=== PATIENT | male | born 1935 | race Caucasian/White ===

== ENCOUNTER → 2016-08-22 | Outpatient (CLI) | payer OTHER ==
[2016-06-26 11:55] VITALS: BP 150/84
[~2016-08-22] MED LIST: NS 100 ML IV 100 ML IV ONE
[2016-08-22 09:39] LABS: CREATININE 1.05 mg/dL (0.70-1.30)
--- NOTE | 2016-08-25 15:16 | CT ---
History: COPD and atelectasis Study: Multi account planner CT chest without IV contrast Comparison: May 13, 2016 Findings: The lungs are hyperinflated with increased AP diameter of the thorax. There is no pleural effusion. The right lung is grossly clear. There is minimal patchy ground-glass opacity in the lingu la and peripherally in the left lower lobe. There is an 8 millimeter nodular density suggested perip herally in the lingula. However this is part of an apparent scar. There are thick linear densities i n the left lung base peripherally and laterally. There are pacemaker wire leads in place. There is n o pericardial effusion or obvious mediastinal adenopathy. The partially visualized upper abdomen is unremarkable. There are surgical clips around the gastroesophageal junction. Impression: 1. Minimal patchy ground-glass opacity and linear densities, residual from previously demonstrated l eft lower lobe pneumonia. This could represent scarring or residual subsegmental atelectasis. 2. Hyperinflation suggesting COPD Reported By:
== END ==
LOC: RAD 09:00
PROVIDERS: ATTEND Nurse Practitioner Family
DX: J98.11 Atelectasis (principal); J44.1 Chronic obstructive pulmonary disease with (acute) exacerbation; J43.8 Other emphysema
CPT/HCPCS: 36415; 71250; 82565; 84520; A4222

== ENCOUNTER 2016-10-02 12:47 | Emergency (ER) | payer OTHER ==
[2016-10-02 12:52] VITALS: BP 134/67; BMI 27.7
[2016-10-02] MEDS ORDERED: NEOSPORIN OINT ONE (13:32)
--- NOTE | 2016-10-02 13:34 | DR.GENAD ---
HPI - PCP Primary Care Physician: nely - Complaint/Symptoms Chief Complaint Doctors Comments: Patient states that he took his nighttime medication and when he awakened this moning he had abrasions on right elbow and he was on the floor. He denies any other pain. Chief Complaint:: patient stated he took his sleeping meds and the next thing he knew he was under the tv and has a skin tear on his upper right arm. - Source History Provided: Patient - Mode of Arrival Mode of Arrival: Ambulatory - Timing Onset of Chief Complaint: 09/29/16 PMH - PMH Past Medical History: Yes Past Medical History: Arthritis, Asthma, CHF, COPD, Diabetes, GERD Past Surgical History: Yes Surgical History: Ortho Surgery, Tonsillectomy - Family History History of Family Medical Conditions: Yes Family Medical History: Diabetes Mellitus, Heart Failure, Hypertension - Social History Does patient currently use any type of tobacco product: No Have you used tobacco products in the last 12 months: No Type of Tobacco Use: None Does any household member use tobacco: No Do you use any recreational Drugs:: No Lives With: Alone Lives Where: Home - infectious screening In the last 2 months have you had wt loss of >10#?: NO Have you had fever, night sweats or hemotysis?: No Have you traveled outside the country in the last 6 months?: No Isolation: Standard ROS - Review of Systems Eyes: No Symptoms Reported ENTM: No Symptoms Reported Respiratoy: No Symptoms Reported Cardiovascular: No Symptoms Reported Gastrointestinal/Abdominal: No Symptoms Reported Genitourinary: No Symptoms Reported Neurological: No Symptoms Reported Musculoskeletal: Forearm (abrasion) Integumentary: Lesions (abrasion right elbow forearm) Hematologic/Lymphatic: No Symptoms Reported Endocrine: No Symptoms Reported Psychiatric: No Symptoms Reported All Other Systems: Reviewed and Negative PE - Vital Signs Vitals: Temperature 99.1 F Pulse Rate 83 Respiratory Rate 18 Blood Pressure [Left Arm] 112/54 Blood Pressure [Right Arm] 103/46 Blood Pressure 134/67 O2 Sat by Pulse Oximetry 100 - General Limitations: No Limitations General Appearance: Alert, In No Apparent Distress - Head Head Exam: Normal Inspection, Atraumatic - Eyes Eye exam: Normal Appearance, PERRL, EOMI - Neck Neck Exam: Normal Inspection - Chest Chest Inspection: Normal Inspection - Respiratory Respiratory Exam: Normal Lung Sounds Bilat Respiratory Exam: Bilateral Clear to Auscultation - Cardiovascular Cardiovascular Exam: Regular Rate - Abdominal Exam Abdominal Exam: Normal Inspection Abdominal Tenderness: negative: RUQ, RLQ, LUQ, LLQ, Epigastrium, Suprapubic, Diffuse, Mild, Moderate, Severe, Other - Extremities Extremities Exam: Normal Inspection, Full ROM - Back Back Exam: Normal Inspection - Psychiatric Psychiatric Exam: Normal Affect - Skin Skin Exam: Warm, Dry, Rash (abrasion right elbow and forearm) Course - Treatment Treatment: Clearned and dressed - Reevaluation 1st: Improved - Diagnosis Discharge Problem: Abrasion of skin - Discharge Plan Condition: Stable - Follow ups/Referrals Follow ups/Referrals: YAMIL NOYOLA [Primary Care Provider] - 3 days - Instructions
== END 2016-10-02 13:55 | disposition home or self-care (01) ==
LOC: ER 13:01
DX: S50.311A Abrasion of right elbow, initial encounter (principal); Y33.XXXA Other specified events, undetermined intent, initial encounter; Y92.9 Unspecified place or not applicable
CPT/HCPCS: 99282

== ENCOUNTER → 2017-01-13 | Outpatient (CLI) | payer OTHER ==
--- NOTE | 2017-01-13 16:03 | CT ---
HISTORY: Dizziness. Study: CT brain without contrast Comparison: CT head dated May 21, 2016. Technique: Multiple axial images of the brain were obtained from the skull base to the vertex without administr ation of IV contrast. Dose reduction techniques including Automated Exposure Control (AEC) and adju stment of mA and kV were utilized. Findings: Age related cortical atrophy and chronic small vessel ischemic changes. Prominent extra-axial spaces are again seen. This may represent changes secondary to cortical volume loss versus chronic subdura l hygromas. No acute intraparenchymal hemorrhage or mass can be identified. No extra-axial fluid co llections are seen. No alteration in the attenuation of the brain parenchyma can be identified to s uggest acute or subacute ischemic change. The ventricular system is symmetric and nondilated. The o sseous structures are intact. Persistent small amount of free fluid seen within the left mastoid air cells. Right mastoid air cells and visualized paranasal sinuses are clear. IMPRESSION: No obvious acute intracranial pathology. If clinically concerned for acute ischemia/infa rction, MRI brain is more sensitive. Reported By:
--- NOTE | 2017-01-13 16:06 | CT ---
HISTORY: Neck pain. Study: CT cervical spine without contrast Comparison: None available. Technique: Multiple axial images of the cervical spine were obtained from the skull base to the thor acic inlet without administration of IV contrast. Sagittal and coronal reformats were performed and reviewed. Dose reduction techniques including Automated Exposure Control (AEC) and adjustment of mA and kV were utilized. Findings: Anatomic alignment without acute fracture or listhesis. Mild/moderate degenerative changes of the ce rvical spine. Otherwise, the vertebral body heights and disc spaces are maintained. No significant n eural foraminal narrowing or spinal canal stenosis. Extensive vascular calcifications. Otherwise, th e prevertebral soft tissues and lung apices appear normal. IMPRESSION: No acute cervical pathology. Reported By:
== END ==
LOC: RAD 14:31
PROVIDERS: ATTEND Nurse Practitioner Family
DX: K22.2 Esophageal obstruction (principal); M54.2 Cervicalgia; M62.81 Muscle weakness (generalized)
CPT/HCPCS: 70450; 72125

== ENCOUNTER → 2017-01-21 | Outpatient (CLI) | payer OTHER ==
[2017-01-27 07:30] LABS: CREATININE UR MG/DAY 1300; CREATININE UR MG/DL 51; HOURS COLLECTED 24; TOTAL URINE VOLUME 2550
[2017-01-27 07:32] LABS: CORTISOL UR FREE 24 HOURS < 2.6; CORTISOL UR FREE UG/L < 1.00
[2017-01-27 07:33] LABS: CORTISOL UR FREE UG/G < 1.96
== END ==
LOC: LAB 16:15
PROVIDERS: ATTEND Nurse Practitioner Family
DX: N40.0 Benign prostatic hyperplasia without lower urinary tract symptoms (principal); E11.9 Type 2 diabetes mellitus without complications; Z79.899 Other long term (current) drug therapy; Z79.891 Long term (current) use of opiate analgesic; R97.20 Elevated prostate specific antigen [PSA]
CPT/HCPCS: 82530

== ENCOUNTER 2017-08-15 22:32 | Inpatient (IN) | payer OTHER ==
[2017-08-15] MEDS ORDERED: XOPENEX 1.25 MG/3 ML NEBULE NEB ONE ×2 (22:40→22:50)
[2017-08-15] MEDS ORDERED: Atrovent NEB TX 0.02% ONE (22:40)
[2017-08-15 23:05] LABS: ABG ALLEN TEST POS; ABG BASE EXCESS 7.6 mmol/L (-2.0-2.0); ABG HCO3 35.3 mmol/L (22-26)
[2017-08-15] MEDS ORDERED: Atrovent NEB TX 0.02% NEB ONE (23:10)
--- NOTE | 2017-08-15 23:11 | DR.SOBA ---
HPI - Time Seen Time seen: 22:50 - Primary Care Physician Primary Care Physician: YAMIL NOYOLA - Complaints Chief Complaint Doctors Comments: Symptoms as noted in nurses note. Onset was without activity. He denies c/p or fever. Chief Complaint:: PT BECAME SOB AT HOME; EXP WHEEZING AND DISORIENTATION WITNESSED BY FAMILY THAT CALLED EMS. UPON ARRIVAL PER EMS 02 SAT = 76% - Reviewed Nurses Notes Reviewed: Yes - Source History Provided: Patient, Family Member, EMS - Mode of Arrival Mode of Arrival: Stretcher - Timing Onset of Chief Complaint: 08/15/17 - Context Onset:: At Rest PMH - PMH Past Medical History: Yes (PT UNABLE TO SPEAK) Past Medical History: Diabetes, PUD Past Surgical History: No (PT UNABLE TO SPEAK) Surgical History: Ortho Surgery, Tonsillectomy - Family History History of Family Medical Conditions: No Family Medical History: Diabetes Mellitus, Heart Failure, Hypertension - Social History Alcohol Use: None Do you use any recreational Drugs:: No Lives With: Alone Lives Where: Home - infectious screening Have you traveled outside the country in the last 6 months?: No Isolation: Standard ROS - Review of Systems Constitutional: No Symptoms Reported Eyes: No Symptoms Reported ENTM: No Symptoms Reported Respiratoy: Non-Productive Cough, Wheezing, Other (Dyspnea) Cardiovascular: No Symptoms Reported Gastrointestinal/Abdominal: No Symptoms Reported Genitourinary: No Symptoms Reported Neurological: No Symptoms Reported Musculoskeletal: No Symptoms Reported Integumentary: No Symptoms Reported Hematologic/Lymphatic: No Symptoms Reported Endocrine: No Symptoms Reported Psychiatric: No Symptoms Reported All Other Systems: Reviewed and Negative PE - Vital Signs Vitals: Temperature 99.8 F Pulse Rate [Right Brachial] 86 Pulse Rate 86 Respiratory Rate 17 Blood Pressure [Left Arm] 112/54 Blood Pressure [Right Arm] 103/46 Blood Pressure 120/59 O2 Sat by Pulse Oximetry 93 - General Limitations: No Limitations General Appearance: Lethargic - Head Head Exam: Normal Inspection - Eyes Eye exam: Normal Appearance - ENT ENT Exam: Normal Exam - Neck Neck Exam: Normal Inspection - Chest Chest Inspection: Normal Inspection, Symmetric Chest Wall Rise - Respiratory Respiratory Exam: Bilateral Wheezing, Bilateral Rhonchi, Bilateral Crackles - Cardiovascular Cardiovascular Exam: Regular Rate, Normal Rhythm, +S1, +S2 - Abdominal Exam Abdominal Exam: Normal Inspection, Normal Bowel Sounds, Soft, Distention ( chronic), Other (there is a midline surgical incision) - Extremities Extremities Exam: Normal Inspection - Back Back Exam: Normal Inspection - Neurologic Neurological Exam: Alert, Oriented X3 - Psychiatric Psychiatric Exam: Normal Affect, Normal Mood - Skin Skin Exam: Warm, Dry, Intact, Normal Color ROR - Labs Reviewed Result Diagrams: 08/15/17 23:05 08/15/17 23:05 Laboratory: WBC 10.9 X10^3/uL (3.6-10.0) H 08/15/17 23:05 RBC 4.02 X10^6/uL (4.7-6.0) L 08/15/17 23:05 Hgb 11.5 g/dL (13.5-18.0) L 08/15/17 23:05 Hct 34.8 % (42.0-54.0) L 08/15/17 23:05 MCV 86.6 fL (80.0-100.0) 08/15/17 23:05 MCH 28.6 pg (27.0-34.0) 08/15/17 23:05 MCHC 33.1 g/dL (33.0-35.0) 08/15/17 23:05 RDW 14.5 % (11.6-16.5) 08/15/17 23:05 Plt Count 121 X10^3/uL (150.0-450.0) L 08/15/17 23:05 MPV 9.5 fL (7.4-11.0) 08/15/17 23:05 Neut % (Auto) 71.8 % (42.0-75.0) 08/15/17 23:05 Lymph % (Auto) 20.5 % (21.0-51.0) L 08/15/17 23:05 Iron % (Auto) 6.1 % (0.0-13.0) 08/15/17 23:05 Eos % (Auto) 1.0 % (0.9-2.9) 08/15/17 23:05 Baso % (Auto) 0.6 % (0.2-1.0) 08/15/17 23:05 Neut # (Auto) 7.8 x10^3/uL (2.2-4.8) H 08/15/17 23:05 Lymph # (Auto) 2.2 X10^3/uL (1.3-2.9) 08/15/17 23:05 Iron # (Auto) 0.7 x10^3/uL (0.3-0.8) 08/15/17 23:05 Eos # (Auto) 0.1 x10^3/uL (0.0-0.2) 08/15/17 23:05 Baso # (Auto) 0.1 X10^3/uL (0.0-0.1) 08/15/17 23:05 Absolute Nucleated RBC 0.0 /100WBC 08/15/17 23:05 Sample Site Rbra 08/16/17 00:41 ABG pH 7.370 (7.35-7.45) 08/16/17 00:41 ABG pCO2 59.0 mmHg (35.0-45.0) H* 08/16/17 00:41 ABG pO2 149.0 mmHg (80.0-100.0) H 08/16/17 00:41 ABG HCO3 34.1 mmol/L (22-26) H* 08/16/17 00:41 ABG O2 Saturation 99.0 % (90-100) 08/16/17 00:41 ABG Base Excess 7.1 mmol/L (-2.0-2.0) H 08/16/17 00:41 Romain Test Na 08/16/17 00:41 A-a Gradient 62.0 mmHg 08/16/17 00:41 FiO2 40.000 08/16/17 00:41 Blood Gas Comments Marianne abg well-mtf 08/16/17 00:41 Sodium 142 mmol/L (136-145) 08/15/17 23:05 Corrected Sodium 143 mmol/L (136-145) 08/15/17 23:05 Potassium 4.3 mmol/L (3.5-5.1) 08/15/17 23:05 Chloride 102 mmol/L (98-107) 08/15/17 23:05 Carbon Dioxide 33.1 mmol/L (21-32) H 08/15/17 23:05 BUN 16 mg/dL (7-18) 08/15/17 23:05 Creatinine 1.39 mg/dL (0.70-1.30) H 08/15/17 23:05 Est GFR (MDRD) Af Amer > 60 (>60) 08/15/17 23:05 Est GFR (MDRD) Non-Af 52 (>60) L 08/15/17 23:05 Glucose 149 mg/dL (65-99) H 08/15/17 23:05 Calcium 8.4 mg/dL (8.5-10.1) L 08/15/17 23:05 Corrected Calcium TNP 08/15/17 23:05 Total Bilirubin 0.60 mg/dL (0.2-1.0) 08/15/17 23:05 AST 23 Units/L (15-37) 08/15/17 23:05 ALT 29 Units/L (12-78) 08/15/17 23:05 Alkaline Phosphatase 57 Units/L (46-116) 08/15/17 23:05 Creatine Kinase 123 Units/L (39-308) 08/15/17 23:05 CK-MB (CK-2) 1.5 ng/mL (0-4.0) 08/15/17 23:05 CK/CKMB % Calc 1.2 % (<4) 08/15/17 23:05 Troponin I < 0.02 ng/mL (0-1.5) 08/15/17 23:05 Total Protein 6.8 g/dL (6.4-8.2) 08/15/17 23:05 Albumin 3.6 g/dL (3.4-5.0) 08/15/17 23:05 Globulin 3.2 g/dL (2.5-4.5) 08/15/17 23:05 Albumin/Globulin Ratio 1.1 Ratio (1.1-2.1) 08/15/17 23:05 - Diagnosis Discharge Problem: Respiratory failure with hypercapnia - Discharge Plan Disposition: ADMITTED INPATIENT Condition: Stable - Follow ups/Referrals Follow ups/Referrals: RIKA CUNNINGHAM [Primary Care Provider] - 3 days - Instructions
[2017-08-15 23:14] LABS: BASOPHILS # (AUTO) 0.1 X10^3/uL (0.0-0.1); BASOPHILS % (AUTO) 0.6 % (0.2-1.0); EOSINOPHILS # (AUTO) 0.1 x10^3/uL (0.0-0.2); HEMATOCRIT 34.8 % (42.0-54.0); HEMOGLOBIN 11.5 g/dL (13.5-18.0); LYMPHOCYTES # (AUTO) 2.2 X10^3/uL (1.3-2.9); LYMPHOCYTES % (AUTO) 20.5 % (21.0-51.0); MEAN CORPUSCULAR HEMOGLOBIN 28.6 pg (27.0-34.0); MEAN CORPUSCULAR HGB CONC 33.1 g/dL (33.0-35.0); MEAN CORPUSCULAR VOLUME 86.6 fL (80.0-100.0); MEAN PLATELET VOLUME 9.5 fL (7.4-11.0); MONOCYTES # (AUTO) 0.7 x10^3/uL (0.3-0.8); MONOCYTES % (AUTO) 6.1 % (0.0-13.0); NEUTROPHILS # (AUTO) 7.8 x10^3/uL (2.2-4.8); NEUTROPHILS % (AUTO) 71.8 % (42.0-75.0); PLATELET COUNT 121 X10^3/uL (150.0-450.0); RED BLOOD COUNT 4.02 X10^6/uL (4.7-6.0); RED CELL DISTRIBUTION WIDTH 14.5 % (11.6-16.5); WHITE BLOOD COUNT 10.9 X10^3/uL (3.6-10.0)
[2017-08-15] MEDS ORDERED: SOLU-Medrol 125 MG VIAL IVP ONE (23:15)
[2017-08-15] MEDS ORDERED: ROCEPHIN 1 GM IV PREMIX 1 GM/50 ML IV.SOLN. IV ONE (23:15)
[2017-08-15] MEDS ORDERED: ZITHROMAX INJ 500 MG VIAL 500 MG in NS 250 ML IV 250 ML IV SCH (23:16)
[2017-08-15] MEDS ORDERED: SOLU-Medrol 125 MG VIAL ONE (23:23)
[2017-08-15 23:24] LABS: ALANINE AMINOTRANSFERASE 29 Units/L (12-78); ALBUMIN 3.6 g/dL (3.4-5.0); ALKALINE PHOSPHATASE 57 Units/L (46-116); ASPARTATE AMINO TRANSFERASE 23 Units/L (15-37); BLOOD UREA NITROGEN 16 mg/dL (7-18); CALCIUM 8.4 mg/dL (8.5-10.1); CARBON DIOXIDE 33.1 mmol/L (21-32); CHLORIDE 102 mmol/L (98-107); COR NA(FOR HYPERGLY) 143 mmol/L (136-145); CREATININE 1.39 mg/dL (0.70-1.30); SODIUM 142 mmol/L (136-145); TOTAL PROTEIN 6.8 g/dL (6.4-8.2); eGFR BLACK RACES > 60 (>60); eGFR NON BLACK RACES 52 (>60)
[2017-08-15 23:46] LABS: CKMB % 1.2 % (<4); CREATINE KINASE 123 Units/L (39-308); CREATINE KINASE MB 1.5 ng/mL (0-4.0); TROPONIN I < 0.02 ng/mL (0-1.5)
[2017-08-16] MEDS ORDERED: NS 250 ML IV 0 ML IV ONE (00:16)
[2017-08-16] MEDS ORDERED: ROCEPHIN VIAL 1 GM ONE (00:16)
[2017-08-16] MEDS ORDERED: ZITHROMAX INJ 500 MG VIAL IV ONE (00:19)
[2017-08-16] MEDS ORDERED: NS 250 ML IV 250 ML IV ONE (00:19)
[2017-08-16 00:58] LABS: ABG BASE EXCESS 7.1 mmol/L (-2.0-2.0)
[2017-08-16 01:00] LABS: ABG HCO3 34.1 mmol/L (22-26)
[2017-08-16] MEDS ORDERED: REFLEX: PROVENTIL NEB & PulmiCORT NEB~ NEB SCH (01:15)
--- NOTE | 2017-08-16 01:15 | RAD ---
AP chest Indication: Shortness breath. Comparison: 05/29/2016 Findings: Trachea is midline. Heart size is unchanged. No change in appearance of right chest wall pa cemaker and left-sided remote pacing leads. No focal airspace opacity, pleural effusion or pneumothor ax. Chronic scarring is noted within the left costophrenic sulcus. No acute osseous abnormality. Impression: No acute cardiopulmonary abnormality. Reported By:
[2017-08-16] MEDS ORDERED: ZITHROMAX INJ 500 MG VIAL 250 MG in NS 250 ML IV 250 ML IV SCH ×2 (02:00→21:00)
[2017-08-16] MEDS ORDERED: PROTONIX INJ 40 MG VIAL ONE (03:10)
[2017-08-16] MEDS: NS 1000 ML 1,000 ML IV SCH ×3 (03:12→17:10)
[2017-08-16] MEDS: LOVENOX INJ 40 MG SYR SC SCH ×2 (03:13→14:34)
[2017-08-16] MEDS: PROTONIX TAB 40 MG PO SCH ×3 (03:19→14:30)
[2017-08-16 03:50] VITALS: BMI 27.4
[2017-08-16] MEDS: PROVENTIL NEB TX 0.083% 2.5MG/ 3ML NEB SCH ×3 (05:09→17:01)
[2017-08-16 05:58] LABS: BASOPHILS % (AUTO) 0.1 % (0.2-1.0); EOSINOPHILS % (AUTO) 0.1 % (0.9-2.9); HEMATOCRIT 32.8 % (42.0-54.0); HEMOGLOBIN 11.1 g/dL (13.5-18.0); LYMPHOCYTES # (AUTO) 0.3 X10^3/uL (1.3-2.9); LYMPHOCYTES % (AUTO) 3.6 % (21.0-51.0); MEAN CORPUSCULAR HGB CONC 33.9 g/dL (33.0-35.0); MEAN CORPUSCULAR VOLUME 85.6 fL (80.0-100.0); MEAN PLATELET VOLUME 9.9 fL (7.4-11.0); MONOCYTES # (AUTO) 0.1 x10^3/uL (0.3-0.8); MONOCYTES % (AUTO) 0.8 % (0.0-13.0); NEUTROPHILS # (AUTO) 7.5 x10^3/uL (2.2-4.8); NEUTROPHILS % (AUTO) 95.4 % (42.0-75.0); PLATELET COUNT 113 X10^3/uL (150.0-450.0); RED BLOOD COUNT 3.83 X10^6/uL (4.7-6.0); RED CELL DISTRIBUTION WIDTH 14.4 % (11.6-16.5); WHITE BLOOD COUNT 7.9 X10^3/uL (3.6-10.0)
[2017-08-16 06:27] LABS: ALANINE AMINOTRANSFERASE 26 Units/L (12-78); ALBUMIN 3.4 g/dL (3.4-5.0); ALKALINE PHOSPHATASE 52 Units/L (46-116); ASPARTATE AMINO TRANSFERASE 23 Units/L (15-37); BLOOD UREA NITROGEN 17 mg/dL (7-18); CALCIUM 8.3 mg/dL (8.5-10.1); CARBON DIOXIDE 30.9 mmol/L (21-32); CHLORIDE 101 mmol/L (98-107); COR NA(FOR HYPERGLY) 143 mmol/L (136-145); CREATININE 1.35 mg/dL (0.70-1.30); SODIUM 141 mmol/L (136-145); TOTAL PROTEIN 6.7 g/dL (6.4-8.2); eGFR BLACK RACES > 60 (>60); eGFR NON BLACK RACES 54 (>60)
[2017-08-16 06:54] LABS: BAND NEUTROPHILS % 1 % (0-10); PLATELET MORPHOLOGY COMMENT NORMAL (NORMAL)
[2017-08-16 06:55] LABS: HYPOCHROMASIA 1+
[2017-08-16] MEDS ORDERED: SOLU-Medrol 40 MG VIAL IVP SCH (08:00)
[2017-08-16] MEDS ORDERED: ROCEPHIN VIAL 1 GM 1 GM in NS 100 ML IV + SPIKE MINIBAG* 100 ML IV SCH (09:00)
[2017-08-16] MEDS ORDERED: PULMICORT NEB TX 0.5 MG NEB SCH ×2 (09:00→21:00)
[2017-08-16] MEDS: SOLU-Medrol 40 MG VIAL IVP SCH ×2 (12:16→16:53)
[2017-08-16] MEDS: ROCEPHIN VIAL 1 GM 1 GM in NS 100 ML IV + SPIKE MINIBAG* 100 ML IV SCH (20:45)
[2017-08-16] MEDS: ZITHROMAX INJ 500 MG VIAL 250 MG in NS 250 ML IV 250 ML IV SCH (21:40)
[2017-08-16] MEDS: PULMICORT NEB TX 0.5 MG NEB SCH (21:53)
[2017-08-17] MEDS ORDERED: PROVENTIL NEB TX 0.083% 2.5MG/ 3ML NEB SCH
[2017-08-17] MEDS: PROVENTIL NEB TX 0.083% 2.5MG/ 3ML NEB SCH ×5 (00:30→17:11)
[2017-08-17] MEDS: NS 1000 ML 1,000 ML IV SCH ×2 (02:00→13:55)
[2017-08-17] MEDS ORDERED: LOVENOX INJ 40 MG SYR SC SCH (03:00)
[2017-08-17] MEDS: SOLU-Medrol 40 MG VIAL IVP SCH ×3 (03:05→20:38)
[2017-08-17] MEDS: LOVENOX INJ 40 MG SYR SC SCH (03:05)
[2017-08-17] MEDS ORDERED: TYLENOL 325 MG TAB PO PRN (03:10)
[2017-08-17] MEDS ORDERED: NORCO 5/325 MG TAB PO ONE (05:35)
[2017-08-17] MEDS ORDERED: REQUIP PO ONE (07:19)
[2017-08-17] MEDS: REQUIP PO SCH ×2 (07:30→20:37)
[2017-08-17] MEDS: ROCEPHIN VIAL 1 GM 1 GM in NS 100 ML IV + SPIKE MINIBAG* 100 ML IV SCH ×2 (08:00→20:37)
[2017-08-17] MEDS: PROTONIX TAB 40 MG PO SCH (08:00)
[2017-08-17] MEDS: LYRICA CAP 150 MG PO SCH ×2 (09:00→20:37)
[2017-08-17] MEDS: CARDURA PO SCH ×2 (09:00→21:36)
[2017-08-17] MEDS: NexIUM PO SCH (09:00)
[2017-08-17] MEDS: BUPROPION HCL 75 MG PO SCH (09:00)
[2017-08-17] MEDS: PULMICORT NEB TX 0.5 MG NEB SCH ×2 (09:21→22:35)
[2017-08-17] MEDS ORDERED: WELLBUTRIN SR 150 MG (BID) ONE (09:22)
[2017-08-17] MEDS ORDERED: PREDNISONE TAB 10 MG PO ONE (09:23)
[2017-08-17] MEDS ORDERED: CARDURA ONE (09:23)
[2017-08-17] MEDS ORDERED: NexIUM ONE (09:23)
[2017-08-17] MEDS ORDERED: XANAX ONE (09:25)
[2017-08-17] MEDS ORDERED: M.S. CONTIN 30 MG EXTENDED RELEASE PO ONE (09:25)
[2017-08-17] MEDS ORDERED: LYRICA CAP 150 MG PO ONE (09:25)
[2017-08-17] MEDS ORDERED: NORCO 10/325 TAB ONE (09:25)
[2017-08-17] MEDS ORDERED: M.S. CONTIN 15 MG (EXTENDED RELEASE) PO PRN (09:30)
[2017-08-17] MEDS ORDERED: GLUCOPHAGE ONE (09:54)
[2017-08-17] MEDS: GLUCOPHAGE PO SCH (09:55)
--- NOTE | 2017-08-17 11:51 | RAD ---
HISTORY: Shortness of breath. Disorientation. Study: AP portable chest Comparison: 08/15/2017 Findings: Minimal central pulmonary vascular congestion is noted. Chronic scarring is noted in the left latera l costophrenic angle. The heart size is borderline enlarged as. A right-sided electronic cardiac de vice is present and its 2 leads appear to be in appropriate position. Abandoned broken electrode mauro ds are present on the left, unchanged. No acute bony abnormalities are identified. IMPRESSION: 1. Borderline cardiomegaly with minimal central pulmonary vascular congestion. 2. Otherwise, no significant change is noted when compared to the prior examination. Reported By:
--- NOTE | 2017-08-17 13:21 | PCM.PROG ---
Progress Note - Progress Note for Day of Date: 08/17/17 - Subjective Subjective: 82 [facility] ER ADMISSION ON 08/16 WITH DECREASED MENTAL STATUS, SOB, CCC. PT ADMITTED FOR PNEUMONIA TREATMENT AND EVALUATION OF HYPOXIA. PT CO CHEST CONGESTION THIS AM AND LOWER LEG PAIN. PT HAS PMH OF SEVERE OA, CHF, CAD, HTN, COPD. WILL RESUME HOME MEDS. REPEAT CXR TODAY, CONTINUE IV ATBX RESP THERAPY - Past Medical Family Social History Past Med/Fam/Surg Hx: No changes since H&P Allergies: Allergies codeine Allergy (Verified 08/15/17 22:55) iodine Allergy (Verified 08/15/17 22:55) - Review of Systems ROS: No change since H&P - Vital Signs and I&O's Vital Signs: Temperature 98.2 F Pulse Rate [Right Brachial] 70 Pulse Rate 68 Respiratory Rate 28 Blood Pressure [Left Arm] 151/65 Blood Pressure [Right Arm] 126/67 Blood Pressure 120/59 O2 Sat by Pulse Oximetry 98 Intake and Output: Intake & Output 08/15/17 08/16/17 08/17/17 08/18/17 11:59 11:59 11:59 11:59 Intake Total 750 2975 Output Total 200 900 Balance 550 2075 - Physical Exam Oriented: Normal Eyes: Normal Ear: Normal Nose: Discharge Throat: Dry Respiratory: Diminished, Wheezes, Rhonchi Cardiovascular: Normal : Normal Auscultation: Bowel Sounds: Normal Palpation: Normal Tenderness: Epigastric Skin: Decreased Turgur Musculoskeletal: Right, Left, Knee, Back:Thoracic, Back:Lumbar, Sensory Deficit , Instability Psychiatric: Anxiety Affect: Anxious Speech Pattern: Clear, Appropriate - Laboratory and Diagnostics Result Diagrams: 08/16/17 04:05 08/16/17 04:05 Labs: 08/17/17 12:19 Sputum - Expectorated Sputum - Final Laboratory WBC 7.9 X10^3/uL (3.6-10.0) 08/16/17 04:05 RBC 3.83 X10^6/uL (4.7-6.0) L 08/16/17 04:05 Hgb 11.1 g/dL (13.5-18.0) L 08/16/17 04:05 Hct 32.8 % (42.0-54.0) L 08/16/17 04:05 MCV 85.6 fL (80.0-100.0) 08/16/17 04:05 MCH 29.0 pg (27.0-34.0) 08/16/17 04:05 MCHC 33.9 g/dL (33.0-35.0) 08/16/17 04:05 RDW 14.4 % (11.6-16.5) 08/16/17 04:05 Plt Count 113 X10^3/uL (150.0-450.0) L 08/16/17 04:05 Plt Count Comment Adequate (ADEQUATE) 08/16/17 04:05 MPV 9.9 fL (7.4-11.0) 08/16/17 04:05 Neut % (Auto) 95.4 % (42.0-75.0) H 08/16/17 04:05 Lymph % (Auto) 3.6 % (21.0-51.0) L 08/16/17 04:05 Wetzel % (Auto) 0.8 % (0.0-13.0) 08/16/17 04:05 Eos % (Auto) 0.1 % (0.9-2.9) L 08/16/17 04:05 Baso % (Auto) 0.1 % (0.2-1.0) L 08/16/17 04:05 Neut # (Auto) 7.5 x10^3/uL (2.2-4.8) H 08/16/17 04:05 Lymph # (Auto) 0.3 X10^3/uL (1.3-2.9) L 08/16/17 04:05 Wetzel # (Auto) 0.1 x10^3/uL (0.3-0.8) L 08/16/17 04:05 Eos # (Auto) 0.0 x10^3/uL (0.0-0.2) 08/16/17 04:05 Baso # (Auto) 0.0 X10^3/uL (0.0-0.1) 08/16/17 04:05 Absolute Nucleated RBC 0.0 /100WBC 08/16/17 04:05 Total Counted 100 08/16/17 04:05 Neutrophils % (Manual) 96 % (39-76) H 08/16/17 04:05 Band Neutrophils % 1 % (0-10) 08/16/17 04:05 Lymphocytes % (Manual) 3 % (13-43) L 08/16/17 04:05 Plt Morphology Comment Normal (NORMAL) 08/16/17 04:05 RBC Morphology Normal (NORMAL) 08/16/17 04:05 Hypochromasia 1+ A 08/16/17 04:05 Sample Site Rbra 08/16/17 00:41 ABG pH 7.370 (7.35-7.45) 08/16/17 00:41 ABG pCO2 59.0 mmHg (35.0-45.0) H* 08/16/17 00:41 ABG pO2 149.0 mmHg (80.0-100.0) H 08/16/17 00:41 ABG HCO3 34.1 mmol/L (22-26) H* 08/16/17 00:41 ABG O2 Saturation 99.0 % (90-100) 08/16/17 00:41 ABG Base Excess 7.1 mmol/L (-2.0-2.0) H 08/16/17 00:41 Romain Test Na 08/16/17 00:41 A-a Gradient 62.0 mmHg 08/16/17 00:41 FiO2 40.000 08/16/17 00:41 Blood Gas Comments Marianne abg well-mtf 08/16/17 00:41 Sodium 141 mmol/L (136-145) 08/16/17 04:05 Corrected Sodium 143 mmol/L (136-145) 08/16/17 04:05 Potassium 3.8 mmol/L (3.5-5.1) 08/16/17 04:05 Chloride 101 mmol/L (98-107) 08/16/17 04:05 Carbon Dioxide 30.9 mmol/L (21-32) 08/16/17 04:05 BUN 17 mg/dL (7-18) 08/16/17 04:05 Creatinine 1.35 mg/dL (0.70-1.30) H 08/16/17 04:05 Est GFR (MDRD) Af Amer > 60 (>60) 08/16/17 04:05 Est GFR (MDRD) Non-Af 54 (>60) L 08/16/17 04:05 Glucose 177 mg/dL (65-99) H 08/16/17 04:05 POC Glucose (mg/dL) 169 mg/dL (65-99) H 08/17/17 11:13 Calcium 8.3 mg/dL (8.5-10.1) L 08/16/17 04:05 Corrected Calcium TNP 08/16/17 04:05 Total Bilirubin 0.40 mg/dL (0.2-1.0) 08/16/17 04:05 AST 23 Units/L (15-37) 08/16/17 04:05 ALT 26 Units/L (12-78) 08/16/17 04:05 Alkaline Phosphatase 52 Units/L (46-116) 08/16/17 04:05 Creatine Kinase 123 Units/L (39-308) 08/15/17 23:05 CK-MB (CK-2) 1.5 ng/mL (0-4.0) 08/15/17 23:05 CK/CKMB % Calc 1.2 % (<4) 08/15/17 23:05 Troponin I < 0.02 ng/mL (0-1.5) 08/15/17 23:05 Total Protein 6.7 g/dL (6.4-8.2) 08/16/17 04:05 Albumin 3.4 g/dL (3.4-5.0) 08/16/17 04:05 Globulin 3.3 g/dL (2.5-4.5) 08/16/17 04:05 Albumin/Globulin Ratio 1.0 Ratio (1.1-2.1) L 08/16/17 04:05 - Plan (1) Pneumonia Status: Acute Plan: CONTINUE RESP THERAPY, SUPPLEMENTAL O2. JET NEBS, IV ATBX. IV SOLU MEDROL, REPEAT AM LABS. CXR TODAY. CHF, MANAGEMENT, I & OS, BP MONITORING (2) Altered mental status Status: Acute Plan: IMPROVED WITH CORRECTION OF HYPOXIA (3) Diabetes Status: Acute (4) Respiratory failure with hypercapnia Status: Acute (5) CHF (congestive heart failure) Status: Chronic (6) Cardiomyopathy Status: Chronic (7) GERD (gastroesophageal reflux disease) Status: Chronic
[2017-08-17] MEDS ORDERED: NORCO 10/325 TAB PO PRN ×2 (13:24→14:02)
[2017-08-17] MEDS ORDERED: XANAX PO PRN (13:24)
[2017-08-17] MEDS: ZITHROMAX INJ 500 MG VIAL 250 MG in NS 250 ML IV 250 ML IV SCH (21:36)
[2017-08-18] MEDS: PROVENTIL NEB TX 0.083% 2.5MG/ 3ML NEB SCH ×4 (00:45→18:10)
[2017-08-18] MEDS: LOVENOX INJ 40 MG SYR SC SCH (02:26)
[2017-08-18] MEDS: SOLU-Medrol 40 MG VIAL IVP SCH ×2 (02:26→09:48)
[2017-08-18] MEDS: NS 1000 ML 1,000 ML IV SCH ×4 (02:28→21:35)
[2017-08-18 06:35] LABS: BASOPHILS % (AUTO) 0.1 % (0.2-1.0); HEMATOCRIT 33.1 % (42.0-54.0); HEMOGLOBIN 10.9 g/dL (13.5-18.0); LYMPHOCYTES # (AUTO) 0.7 X10^3/uL (1.3-2.9); LYMPHOCYTES % (AUTO) 5.8 % (21.0-51.0); MEAN CORPUSCULAR HEMOGLOBIN 28.5 pg (27.0-34.0); MEAN CORPUSCULAR VOLUME 86.3 fL (80.0-100.0); MEAN PLATELET VOLUME 10.1 fL (7.4-11.0); MONOCYTES # (AUTO) 0.2 x10^3/uL (0.3-0.8); MONOCYTES % (AUTO) 1.7 % (0.0-13.0); NEUTROPHILS # (AUTO) 11.1 x10^3/uL (2.2-4.8); NEUTROPHILS % (AUTO) 92.4 % (42.0-75.0); PLATELET COUNT 108 X10^3/uL (150.0-450.0); RED BLOOD COUNT 3.83 X10^6/uL (4.7-6.0); RED CELL DISTRIBUTION WIDTH 14.7 % (11.6-16.5)
[2017-08-18 06:51] LABS: ALANINE AMINOTRANSFERASE 39 Units/L (12-78); ALBUMIN 3.3 g/dL (3.4-5.0); ALKALINE PHOSPHATASE 47 Units/L (46-116); ASPARTATE AMINO TRANSFERASE 38 Units/L (15-37); BLOOD UREA NITROGEN 19 mg/dL (7-18); CALCIUM 8.3 mg/dL (8.5-10.1); CARBON DIOXIDE 28.1 mmol/L (21-32); CHLORIDE 106 mmol/L (98-107); COR CA(FOR HYPOALB) 8.9 mg/dL (8.5-10.1); COR NA(FOR HYPERGLY) 146 mmol/L (136-145); CREATININE 1.14 mg/dL (0.70-1.30); SODIUM 144 mmol/L (136-145); TOTAL PROTEIN 6.6 g/dL (6.4-8.2); eGFR BLACK RACES > 60 (>60); eGFR NON BLACK RACES > 60 (>60)
[2017-08-18 06:58] LABS: B-TYPE NATRIURETIC PEPTIDE 334 pg/mL (0-79)
[2017-08-18 07:04] LABS: PLATELET MORPHOLOGY COMMENT NORMAL (NORMAL)
[2017-08-18] MEDS ORDERED: GLUCOPHAGE ONE ×2 (07:21→20:38)
[2017-08-18] MEDS: GLUCOPHAGE PO SCH ×4 (07:34→21:33)
[2017-08-18] MEDS ORDERED: M.S. CONTIN 15 MG (EXTENDED RELEASE) PO PRN ×2 (07:36→14:47)
[2017-08-18] MEDS ORDERED: LASIX IVP ONE ×2 (08:58→09:28)
[2017-08-18] MEDS ORDERED: DOXAZOSIN MESYLATE 8 MG PO SCH (09:00)
[2017-08-18] MEDS ORDERED: LASIX PO SCH (09:00)
[2017-08-18] MEDS ORDERED: K-DUR TAB 20 MEQ PO SCH (09:00)
[2017-08-18] MEDS: PULMICORT NEB TX 0.5 MG NEB SCH ×2 (09:02→21:20)
[2017-08-18] MEDS: ROCEPHIN VIAL 1 GM 1 GM in NS 100 ML IV + SPIKE MINIBAG* 100 ML IV SCH ×2 (09:18→21:38)
[2017-08-18] MEDS: PROTONIX TAB 40 MG PO SCH (09:18)
[2017-08-18] MEDS: LYRICA CAP 150 MG PO SCH ×2 (09:18→21:34)
[2017-08-18] MEDS: REQUIP PO SCH ×2 (09:32→21:34)
[2017-08-18] MEDS: NexIUM PO SCH (09:33)
[2017-08-18] MEDS: CARDURA PO SCH (09:35)
[2017-08-18] MEDS: BUPROPION HCL 75 MG PO SCH (09:35)
[2017-08-18] MEDS ORDERED: TYLENOL 325 MG TAB PO PRN (14:47)
[2017-08-18] MEDS ORDERED: NORCO 10/325 TAB PO PRN (14:47)
[2017-08-18] MEDS ORDERED: XANAX PO PRN (14:47)
[2017-08-18] MEDS ORDERED: SOLU-Medrol 40 MG VIAL IVP SCH (17:46)
[2017-08-18 18:12] VITALS: BP 126/75
[2017-08-18] MEDS ORDERED: ZITHROMAX INJ 500 MG VIAL 250 MG in NS 250 ML IV 250 ML IV SCH (21:00)
[2017-08-19] MEDS: PROVENTIL NEB TX 0.083% 2.5MG/ 3ML NEB SCH ×3 (00:42→05:05)
[2017-08-19] MEDS ORDERED: LOVENOX INJ 40 MG SYR SC SCH (03:00)
[2017-08-19] MEDS: NS 1000 ML 1,000 ML IV SCH ×3 (05:14→10:07)
[2017-08-19] MEDS ORDERED: GLUCOPHAGE ONE (05:46)
[2017-08-19] MEDS: GLUCOPHAGE PO SCH (06:10)
[2017-08-19 06:15] LABS: BASOPHILS % (AUTO) 0.3 % (0.2-1.0); EOSINOPHILS % (AUTO) 0.1 % (0.9-2.9); HEMATOCRIT 31.8 % (42.0-54.0); HEMOGLOBIN 10.6 g/dL (13.5-18.0); LYMPHOCYTES # (AUTO) 1.8 X10^3/uL (1.3-2.9); LYMPHOCYTES % (AUTO) 16.3 % (21.0-51.0); MEAN CORPUSCULAR HEMOGLOBIN 28.8 pg (27.0-34.0); MEAN CORPUSCULAR HGB CONC 33.3 g/dL (33.0-35.0); MEAN CORPUSCULAR VOLUME 86.4 fL (80.0-100.0); MEAN PLATELET VOLUME 10.1 fL (7.4-11.0); MONOCYTES # (AUTO) 0.8 x10^3/uL (0.3-0.8); MONOCYTES % (AUTO) 7.5 % (0.0-13.0); NEUTROPHILS # (AUTO) 8.4 x10^3/uL (2.2-4.8); NEUTROPHILS % (AUTO) 75.8 % (42.0-75.0); PLATELET COUNT 102 X10^3/uL (150.0-450.0); RED BLOOD COUNT 3.68 X10^6/uL (4.7-6.0); RED CELL DISTRIBUTION WIDTH 14.5 % (11.6-16.5); WHITE BLOOD COUNT 11.1 X10^3/uL (3.6-10.0)
[2017-08-19 06:31] LABS: ALANINE AMINOTRANSFERASE 35 Units/L (12-78); ALBUMIN 3.2 g/dL (3.4-5.0); ALKALINE PHOSPHATASE 41 Units/L (46-116); ASPARTATE AMINO TRANSFERASE 21 Units/L (15-37); BLOOD UREA NITROGEN 18 mg/dL (7-18); CALCIUM 8.1 mg/dL (8.5-10.1); CARBON DIOXIDE 29.8 mmol/L (21-32); CHLORIDE 107 mmol/L (98-107); COR CA(FOR HYPOALB) 8.7 mg/dL (8.5-10.1); CREATININE 1.27 mg/dL (0.70-1.30); SODIUM 146 mmol/L (136-145); eGFR BLACK RACES > 60 (>60); eGFR NON BLACK RACES 57 (>60)
[2017-08-19] MEDS: PULMICORT NEB TX 0.5 MG NEB SCH (09:00)
[2017-08-19] MEDS ORDERED: CARDURA PO SCH (09:00)
[2017-08-19] MEDS ORDERED: LASIX PO SCH (09:00)
[2017-08-19] MEDS ORDERED: PROTONIX TAB 40 MG PO SCH (09:00)
[2017-08-19] MEDS ORDERED: WELLBUTRIN SR 150 MG (BID) PO SCH (09:00)
[2017-08-19] MEDS ORDERED: NexIUM PO SCH (09:00)
[2017-08-19] MEDS ORDERED: K-DUR TAB 20 MEQ PO SCH (09:00)
[2017-08-19] MEDS: ROCEPHIN VIAL 1 GM 1 GM in NS 100 ML IV + SPIKE MINIBAG* 100 ML IV SCH (09:27)
[2017-08-19] MEDS: LYRICA CAP 150 MG PO SCH (09:34)
[2017-08-19] MEDS: REQUIP PO SCH (10:05)
== END 2017-08-19 12:45 | disposition home health service (06) | DRG 189 ==
LOC: ER 22:32 → OBSVTOIN 08-16 01:04 → MED/SURG 08-16 01:04 → UNDOADMOB 08-16 01:04 → ICU 08-16 12:26 → MED/SURG 08-18 18:15
PROVIDERS: ADMIT Obstetrics & Gynecology Obstetrics; ATTEND Internal Medicine
DX: J96.02 Acute respiratory failure with hypercapnia (principal); J44.1 Chronic obstructive pulmonary disease with (acute) exacerbation; J18.8 Other pneumonia, unspecified organism; R06.02 Shortness of breath; R94.31 Abnormal electrocardiogram [ECG] [EKG]; I50.9 Heart failure, unspecified; I10 Essential (primary) hypertension; R41.82 Altered mental status, unspecified; E11.65 Type 2 diabetes mellitus with hyperglycemia; I51.7 Cardiomegaly; K21.9 Gastro-esophageal reflux disease without esophagitis; Z95.0 Presence of cardiac pacemaker
CPT/HCPCS: 36415; 36600; 71045; 80053; 82550; 82553; 82803; 83880; 84484; 85025; 87040; 87070; 87205; 93005; 93010; 93306; 94640; 94660; 94760; 96365; 96367; 96374; 99284; A4216; A4222; A4618; A7030; C9113; S0106; J0456; J0696; J1650; J1940; J2920; J2930; J7506; J7613; J7626; J7644

== ENCOUNTER 2017-08-23 14:31 | Emergency (ER) | payer OTHER ==
[2017-08-23 14:42] VITALS: BP 175/74; BMI 28.2
--- NOTE | 2017-08-23 15:49 | DR.SOBA ---
HPI - Time Seen Time seen: 14:50 - Primary Care Physician Primary Care Physician: AMEYA - HPI Comment HPI Comment: HISTORY BELOW. - Complaints Chief Complaint Doctors Comments: DISCHARGE HOME FROM HOSPITAL WITH HOME OXYGEN. PATIENT WENT TO A AND OXYGEN DID NOT GET DELIVER. WAS SOB AND O2 SAT WAS IN 70S. LAST NIGHT USE A NEIGHBORS OXYGEN. THIS NEIGHBOR GAVE 2 TANKS OF OXYGEN PATIENT CAN USE TILL TOMORROW. HE WILL USE AT HOME. Chief Complaint:: SOB, PT STATES HE WAS EATING SOME GRAPES. OXYGEN LEVEL DROPPED TO 77. % AND COULD NOT GET OXYGEN LEVEL BACK UP. HANDS TURNT WHITE. - Reviewed Nurses Notes Reviewed: Yes - Source History Provided: Patient - Mode of Arrival Mode of Arrival: Wheelchair - Timing Onset of Chief Complaint: 08/23/17 - Context Onset:: At Rest PE Risk Factors:: None History of:: COPD Prehospital Care:: None - Modifying Factors Worsens:: Nothing Improves:: Nothing - Associated Signs and Symptoms Associated Signs and Symptoms: Wheeze, Cough - If Chest Pain Quality: Pleuritic Location: Chest Wall - If Cough Cough: Productive, White PMH - PMH Past Medical History: Yes Past Medical History: Arthritis, COPD, Diabetes, PUD Past Surgical History: Yes Surgical History: Ortho Surgery, Thyroidectomy Past Surgical History Comment: PACEMAKER - Family History History of Family Medical Conditions: Yes Family Medical History: Diabetes Mellitus, Heart Failure, Hypertension - Social History Does any household member use tobacco: No Alcohol Use: None Do you use any recreational Drugs:: No Lives With: Alone Lives Where: Home - infectious screening In the last 2 months have you had wt loss of >10#?: NO Have you had fever, night sweats or hemotysis?: No Have you traveled outside the country in the last 6 months?: No Isolation: Standard ROS - Review of Systems Constitutional: Weakness, Fatigue Eyes: negative: Eye Pain, Discharge ENTM: Nose Congestion. negative: Ear Pain, Nose Discharge, Throat Pain Respiratoy: Productive Cough, Short of Breath, Wheezing. negative: Hemoptysis Cardiovascular: Edema. negative: Chest Pain Gastrointestinal/Abdominal: negative: Abdominal Pain, Diarrhea, Nausea, Vomiting Genitourinary: No Symptoms Reported Neurological: Weakness, Dizziness. negative: Headache Musculoskeletal: Back Pain Integumentary: No Symptoms Reported Hematologic/Lymphatic: No Symptoms Reported Endocrine: No Symptoms Reported All Other Systems: Reviewed and Negative PE - Vital Signs Vitals: Temperature 97.8 F Pulse Rate 65 Respiratory Rate 20 Blood Pressure [Left Arm] 151/65 Blood Pressure [Right Arm] 126/75 Blood Pressure 175/74 O2 Sat by Pulse Oximetry 97 - General Limitations: No Limitations General Appearance: Alert - Head Head Exam: Normal Inspection - Eyes Eye exam: Normal Appearance - ENT ENT Exam: Normal External Ear Exam - Neck Neck Exam: Normal Inspection - Chest Chest Inspection: Symmetric Chest Wall Rise - Respiratory Respiratory Exam: Normal Lung Sounds Bilat Respiratory Exam: Bilateral Clear to Auscultation - Cardiovascular Cardiovascular Exam: Regular Rate, Normal Rhythm - Abdominal Exam Abdominal Exam: Normal Bowel Sounds, Soft. negative: Tenderness - Neurologic Neurological Exam: Alert, Oriented X3 - Psychiatric Psychiatric Exam: Anxious - Skin Skin Exam: Normal Color MDM - Additional Information Obtained Additional Information Obtained From: Family - Differential Diagnosis Differential Diagnosis: COPD, Other (OXYGEN DEPENDENT.) Course - Treatment Treatment: SEE ORDERS. PATIENT TO USE CURRENT O2 TILL HIOS OXYGEN IS DELIVER IN AM. - Education/Counseling Education/Counseling: Patient, Family, Education Educated On: Diagnosis - Diagnosis Discharge Problem: Hypoxia, Oxygen supply absent, Low oxygen saturation - Discharge Plan Disposition: 01 HOME, SELF-CARE Condition: Stable - Follow ups/Referrals Follow ups/Referrals: RIKA CUNNINGHAM [Primary Care Provider] - 3 days - Instructions Instructions: Hypoxemia
== END 2017-08-23 15:52 | disposition home or self-care (01) ==
LOC: ER 14:35
DX: R09.02 Hypoxemia (principal); Z99.81 Dependence on supplemental oxygen
CPT/HCPCS: 99281; 99282

== ENCOUNTER → 2017-09-16 | Outpatient (CLI) | payer OTHER ==
[2017-08-23 14:42] VITALS: BP 175/74
--- NOTE | 2017-09-16 12:44 | CT ---
HISTORY: Lower back pain Study: CT lumbar spine without contrast Comparison: CT 12/09/2010 Technique: Multiple axial images of the lumbar spine without the administration of IV contrast. Sag ittal and coronal reformats were performed and reviewed. Dose reduction techniques including Automat ed Exposure Control (AEC) and adjustment of mA and kV were utilized. Findings: Lumbar alignment is within normal limits. There is advanced degenerative disc space narrowing and spo ndylosis with multilevel vacuum phenomenon and facet arthropathy resulting in rather diffuse moderate to severe foraminal stenosis bilaterally from L1-L2 and L5-S1. Findings are probably worse at L3-L4. There is [id number] spinal canal stenosis at L3-L4 and moderate to severe spinal canal stenosi s at L4-5 due to above-described degenerative changes as well as ligamentum flavum thickening. The cyr rrounding intra-abdominal in paraspinal soft tissues appear unremarkable with some scattered vascular calcifications noted. IMPRESSION: 1. Advanced lumbar degenerative changes as described with multilevel moderate to severe bilateral for aminal stenosis worse at L3-L4 as well as spinal canal stenosis at L3-L4 and L4-5 as described. Consi dante MRI for further evaluation if indicated clinically. 2. No acute osseous abnormality identified. Reported By:
== END ==
LOC: RAD 11:42
PROVIDERS: ATTEND Internal Medicine
DX: M51.37 Other intervertebral disc degeneration, lumbosacral region (principal)
CPT/HCPCS: 72131

== ENCOUNTER 2017-09-29 00:08 | Inpatient (IN) | payer OTHER ==
[2017-09-29 00:23] LABS: ABG BASE EXCESS 6.7 mmol/L (-2.0-2.0); ABG HCO3 31.9 mmol/L (22-26)
--- NOTE | 2017-09-29 01:24 | CT ---
CT head without contrast Indication: Altered mental status. Nonresponsive patient. Comparison: 01/13/[address] Findings: There is atrophy with ex vacuo ventricular and sulcal enlargement. There is no acute intrac ranial hemorrhage, mass or mass effect. No large area of hypoattenuation suggest infarction seen. Rev iew of bone windows shows left mastoid air cell fluid. Paranasal sinuses are otherwise normal. No fra cture seen. Impression: 1. No acute intracranial hemorrhage. 2. Moderate atrophy, similar to the prior. 3. Left mastoid air cell fluid, relatively unchanged from the prior Reported By:
[2017-09-29 01:27] LABS: BASOPHILS % (AUTO) 0.3 % (0.2-1.0); EOSINOPHILS # (AUTO) 0.2 x10^3/uL (0.0-0.2); EOSINOPHILS % (AUTO) 2.3 % (0.9-2.9); HEMATOCRIT 31.9 % (42.0-54.0); HEMOGLOBIN 10.7 g/dL (13.5-18.0); LYMPHOCYTES # (AUTO) 0.5 X10^3/uL (1.3-2.9); MEAN CORPUSCULAR HGB CONC 33.7 g/dL (33.0-35.0); MEAN PLATELET VOLUME 9.5 fL (7.4-11.0); MONOCYTES # (AUTO) 0.5 x10^3/uL (0.3-0.8); MONOCYTES % (AUTO) 6.3 % (0.0-13.0); NEUTROPHILS # (AUTO) 7.5 x10^3/uL (2.2-4.8); NEUTROPHILS % (AUTO) 85.1 % (42.0-75.0); PLATELET COUNT 104 X10^3/uL (150.0-450.0); RED BLOOD COUNT 3.71 X10^6/uL (4.7-6.0); RED CELL DISTRIBUTION WIDTH 15.7 % (11.6-16.5); WHITE BLOOD COUNT 8.8 X10^3/uL (3.6-10.0)
[2017-09-29 01:28] LABS: BLOOD UREA NITROGEN 22 mg/dL (7-18); CALCIUM 8.3 mg/dL (8.5-10.1); CARBON DIOXIDE 33.5 mmol/L (21-32); CHLORIDE 103 mmol/L (98-107); COR NA(FOR HYPERGLY) 143 mmol/L (136-145); CREATININE 1.31 mg/dL (0.70-1.30); SODIUM 143 mmol/L (136-145); TROPONIN I < 0.02 ng/mL (0-1.5); eGFR BLACK RACES > 60 (>60); eGFR NON BLACK RACES 55 (>60)
[2017-09-29 01:33] LABS: ALANINE AMINOTRANSFERASE 26 Units/L (12-78); ALBUMIN 3.3 g/dL (3.4-5.0); ALKALINE PHOSPHATASE 60 Units/L (46-116); ASPARTATE AMINO TRANSFERASE 21 Units/L (15-37); CKMB % 0.8 % (<4); COR CA(FOR HYPOALB) 8.9 mg/dL (8.5-10.1); CREATINE KINASE 166 Units/L (39-308); CREATINE KINASE MB 1.4 ng/mL (0-4.0); MAGNESIUM 1.3 mg/dL (1.7-2.9); TOTAL PROTEIN 6.4 g/dL (6.4-8.2)
[2017-09-29 01:46] LABS: B-TYPE NATRIURETIC PEPTIDE 53.5 pg/mL (0-79)
--- NOTE | 2017-09-29 03:27 | DR.AMS ---
HPI - Time Seen Time seen: 00:10 - PCP Primary Care Physician: nanette - Complaint Cheif Complaint Doctors Comments: Patient was seen in the ED secondary to altered mental status while at home. He was difficult to arouse. Chief Complaint:: ams - Source History Provided: EMS - Mode of Arrival Mode of Arrival: Stretcher - Timing Onset of Chief Complaint: 09/29/17 PMH - PMH Past Medical History: Yes Past Medical History: Arthritis, COPD, Diabetes, PUD Past Surgical History: Yes Surgical History: Ortho Surgery, Thyroidectomy - Family History History of Family Medical Conditions: Yes Family Medical History: Diabetes Mellitus, Heart Failure, Hypertension - Social History Does patient currently use any type of tobacco product: No Have you used tobacco products in the last 12 months: No Type of Tobacco Use: None Does any household member use tobacco: No Alcohol Use: None Do you use any recreational Drugs:: No Lives With: Family Lives Where: Home - infectious screening In the last 2 months have you had wt loss of >10#?: NO Have you had fever, night sweats or hemotysis?: No Have you traveled outside the country in the last 6 months?: No Isolation: Standard ROS - Review of Systems Eyes: No Symptoms Reported ENTM: No Symptoms Reported Respiratoy: No Symptoms Reported Cardiovascular: No Symptoms Reported Gastrointestinal/Abdominal: No Symptoms Reported Genitourinary: No Symptoms Reported Neurological: No Symptoms Reported Musculoskeletal: No Symptoms Reported Integumentary: No Symptoms Reported Hematologic/Lymphatic: No Symptoms Reported Endocrine: No Symptoms Reported Psychiatric: No Symptoms Reported All Other Systems: Reviewed and Negative PE - Vitals Vital Signs: Temp Pulse Resp BP BP BP Pulse Ox 09/29/17 00:10 99.2 F 105 H 22 122/88 95 08/23/17 14:32 175/74 08/18/17 18:00 126/75 08/17/17 08:00 151/65 - General Limitations: No Limitations General Appearance: Alert, In No Apparent Distress - Head Head Exam: Normal Inspection, Atraumatic Head Exam Physical: Laceration - Eyes Eye exam: Normal Appearance, PERRL, EOMI Pupils: Regular, Round: Bilateral - ENT ENT Exam: Normal Exam, Normal Oropharynx External Ear Exam: Normal External Inspection TM/Canal Exam: Bilateral Normal Nose Exam: Normal Nose Exam Mouth Exam: Normal Inspection Throat Exam: Normal Inspection - Neck Neck Exam: Normal Inspection, Full ROM - Chest Chest Inspection: Normal Inspection, Symmetric Chest Wall Rise - Respiratory Respiratory Exam: Normal Lung Sounds Bilat Respiratory Exam: Bilateral Clear to Auscultation - Cardiovascular Cardiovascular Exam: Regular Rate, Normal Rhythm - Abdominal Exam Abdominal Exam: Normal Inspection, Normal Bowel Sounds, Soft Abdominal Tenderness: negative: RUQ, RLQ, LUQ, LLQ, Epigastrium, Suprapubic, Diffuse, Mild, Moderate, Severe, Other - Extremities Extremities Exam: Normal Inspection, Full ROM - Back Back Exam: Normal Inspection, Full ROM - Neurological Neurological Exam: Alert, Oriented X3, CN II-XII Intact Cranial Nerve Exam: EOM Function (II, III, IV, ): Normal, Facial Sensation (V) : Normal Cerebellar Function: Finger to Nose: Normal Motor Strength - LUE: 3/5 Motor Strength - RUE: 3/5 Motor Strength - LLE: 3/5 Sensory Exam Upper Extremity: Light Touch: Normal DTR: achilles tendon (L): 2+, achilles tendon (R): 2+ Course - Reevaluation 1st: Improved - Consultation Called: 06:10 (Dr Ren agreed to admit for furtherr evaluation ) ROR - Labs Reviewed Result Diagrams: 09/29/17 00:55 09/29/17 00:55 Laboratory: WBC 8.8 X10^3/uL (3.6-10.0) 09/29/17 00:55 RBC 3.71 X10^6/uL (4.7-6.0) L 09/29/17 00:55 Hgb 10.7 g/dL (13.5-18.0) L 09/29/17 00:55 Hct 31.9 % (42.0-54.0) L 09/29/17 00:55 MCV 86.0 fL (80.0-100.0) 09/29/17 00:55 MCH 29.0 pg (27.0-34.0) 09/29/17 00:55 MCHC 33.7 g/dL (33.0-35.0) 09/29/17 00:55 RDW 15.7 % (11.6-16.5) 18 00:55 Plt Count 104 X10^3/uL (150.0-450.0) L 09/29/17 00:55 MPV 9.5 fL (7.4-11.0) 09/29/17 00:55 Neut % (Auto) 85.1 % (42.0-75.0) H 09/29/17 00:55 Lymph % (Auto) 6.0 % (21.0-51.0) L 09/29/17 00:55 [place] % (Auto) 6.3 % (0.0-13.0) 09/29/17 00:55 Eos % (Auto) 2.3 % (0.9-2.9) 09/29/17 00:55 Baso % (Auto) 0.3 % (0.2-1.0) 09/29/17 00:55 Neut # (Auto) 7.5 x10^3/uL (2.2-4.8) H 09/29/17 00:55 Lymph # (Auto) 0.5 X10^3/uL (1.3-2.9) L 09/29/17 00:55 [place] # (Auto) 0.5 x10^3/uL (0.3-0.8) 09/29/17 00:55 Eos # (Auto) 0.2 x10^3/uL (0.0-0.2) 09/29/17 00:55 Baso # (Auto) 0.0 X10^3/uL (0.0-0.1) 09/29/17 00:55 Absolute Nucleated RBC 0.0 /100WBC 09/29/17 00:55 INR Target Range - 09/29/17 00:55 INR 0.99 (0.8-1.3) 09/29/17 00:55 APTT 27.2 SECONDS (22.9-36.5) 09/29/17 00:55 PTT Comment - 09/29/17 00:55 D-Dimer 2530 ng/mL (0-400) H* 09/29/17 00:55 Sample Site Rbra 09/29/17 00:13 ABG pH 7.440 (7.35-7.45) 09/29/17 00:13 ABG pCO2 47.0 mmHg (35.0-45.0) H 09/29/17 00:13 ABG pO2 81.0 mmHg (80.0-100.0) 09/29/17 00:13 ABG HCO3 31.9 mmol/L (22-26) H* 09/29/17 00:13 ABG O2 Saturation 96.0 % (90-100) 09/29/17 00:13 ABG Base Excess 6.7 mmol/L (-2.0-2.0) H 09/29/17 00:13 Romain Test Na 09/29/17 00:13 A-a Gradient 60.0 mmHg 09/29/17 00:13 FiO2 28.000 09/29/17 00:13 Blood Gas Comments Marianne abg well-mtf 09/29/17 00:13 Sodium 143 mmol/L (136-145) 09/29/17 00:55 Corrected Sodium 143 mmol/L (136-145) 09/29/17 00:55 Potassium 4.2 mmol/L (3.5-5.1) 09/29/17 00:55 Chloride 103 mmol/L (98-107) 09/29/17 00:55 Carbon Dioxide 33.5 mmol/L (21-32) H 09/29/17 00:55 BUN 22 mg/dL (7-18) H 09/29/17 00:55 Creatinine 1.31 mg/dL (0.70-1.30) H 09/29/17 00:55 Est GFR (MDRD) Af Amer > 60 (>60) 09/29/17 00:55 Est GFR (MDRD) Non-Af 55 (>60) L 09/29/17 00:55 Glucose 120 mg/dL (65-99) H 09/29/17 00:55 Calcium 8.3 mg/dL (8.5-10.1) L 09/29/17 00:55 Corrected Calcium 8.9 mg/dL (8.5-10.1) 09/29/17 00:55 Magnesium 1.3 mg/dL (1.7-2.9) L 09/29/17 00:55 Total Bilirubin 0.80 mg/dL (0.2-1.0) 09/29/17 00:55 AST 21 Units/L (15-37) 09/29/17 00:55 ALT 26 Units/L (12-78) 09/29/17 00:55 Alkaline Phosphatase 60 Units/L (46-116) 05/08/18 00:55 Creatine Kinase 166 Units/L (39-308) 09/29/17 00:55 CK-MB (CK-2) 1.4 ng/mL (0-4.0) 09/29/17 00:55 CK/CKMB % Calc 0.8 % (<4) 09/29/17 00:55 Troponin I < 0.02 ng/mL (0-1.5) 09/29/17 00:55 B-Natriuretic Peptide 53.5 pg/mL (0-79) 09/29/17 00:55 Total Protein 6.4 g/dL (6.4-8.2) 09/29/17 00:55 Albumin 3.3 g/dL (3.4-5.0) L 09/29/17 00:55 Globulin 3.1 g/dL (2.5-4.5) 09/29/17 00:55 Albumin/Globulin Ratio 1.1 Ratio (1.1-2.1) 09/29/17 00:55 - XRAY XRAY Interpreted by: Radiologist (CT Brain: No acute intracranial hemorrhage. Moderate atrophy, similar to the prior study of 01/13/17. Left mastoid air cell fluid, ralatively unchanged from the prior study Chest: pacemaker right chest wall, lungs clear elevated left hemidiaphragm, no focal infiltrate) - Diagnosis Discharge Problem: R/O Pulmonary Embolus Altered mental status Qualifiers: Altered mental status type: disorientation Qualified Code(s): R41.0 - Disorientation, unspecified - Discharge Plan Condition: Stable - Follow ups/Referrals Follow ups/Referrals: RIKA REN [Primary Care Provider] - 3 days - Instructions
[2017-09-29] MEDS ORDERED: NS 1000 ML 1,000 ML IV SCH (04:00)
[2017-09-29 07:16] LABS: BILIRUBIN,URINE NEGATIVE (NEGATIVE); BLOOD/HEMOGLOBIN,URINE NEGATIVE (NEGATIVE); GLUCOSE, URINE NEGATIVE (NEGATIVE); KETONES,URINE NEGATIVE (NEGATIVE); LEUKOCYTE ESTERASE ,URINE NEGATIVE (NEGATIVE); NITRITES,URINE NEGATIVE (NEGATIVE); PROTEIN,URINE NEGATIVE (NEGATIVE); UROBILINOGEN,URINE NORMAL (NORMAL)
[2017-09-29 07:22] LABS: CKMB % 0.6 % (<4); CREATINE KINASE 166 Units/L (39-308); CREATINE KINASE MB < 1.0 ng/mL (0-4.0); TROPONIN I < 0.02 ng/mL (0-1.5)
--- NOTE | 2017-09-29 07:29 | RAD ---
HISTORY: Shortness of breath, wheezing Study: Chest AP portable Comparison: 08/17/2017 Findings: There is a pacemaker present on the right partially obscuring the right upper lobe. Old pain wires ar e present on the left. The heart is within normal limits in size. The pedro are normal. The lungs are free of acute alveolar infiltrates. No pleural effusions are identified. The bony thorax is unremarka ble. IMPRESSION: Lungs clear Reported By:
[2017-09-29] MEDS ORDERED: HumuLIN R SUBCUT PRN (07:40)
[2017-09-29 07:43] LABS: APPEARANCE,URINE CLEAR (CLEAR); COLOR,URINE YELLOW (YELLOW)
--- NOTE | 2017-09-29 10:30 | CT ---
HISTORY: Altered mental status, found down unconscious, congestion, shortness of breath, cough Study: CT chest without contrast Comparison: Same day radiograph, CT 08/22/2016 Technique: Multiple axial images of the chest were obtained from the thoracic inlet to the upper abdo men without IV contrast. Dose reduction techniques including Automated Exposure Control (AEC) and ad justment of mA and kV were utilized. Findings: Please note evaluation is limited without IV contrast. Vessel patency not assessed. There is a stable right chest wall pacemaker with abandoned cardiac leads on the left. Heart size is normal with scatt ered calcified plaque in the coronary arteries. Aorta appears normal in caliber. No pericardial effus ion. The lungs are clear without effusion, consolidation, or pneumothorax. Airways are patent. Mild c entrilobular emphysematous changes are present. There is minimal atelectasis at the lung bases. There are chronic degenerative changes of the bony thorax. The visualized portions of the upper abdom en are grossly unremarkable. Surgical clips are seen at the GE junction. IMPRESSION: 1. Chronic findings as described without acute abnormality. Reported By:
[2017-09-29] MEDS ORDERED: NS + KCL 20 MEQ/L 1,000 ML IV ONE ×2 (11:21→23:51)
[2017-09-29] MEDS: NS 1000 ML 1,000 ML with POTASSIUM CHLORIDE INJ 20 MEQ VIAL 20 MEQ IV SCH ×4 (11:22→23:55)
[2017-09-29 13:31] VITALS: BMI 29.5
[2017-09-29] MEDS ORDERED: MAGNESIUM SULFATE 1 GM/100 mL PREMIX 1 GM/100 ML BAG IV PRN (17:35)
[2017-09-29] MEDS ORDERED: K-RIDER 10 MEQ/NS 100 ML 10 MEQ/100 ML BAG IV PRN (17:35)
[2017-09-29] MEDS ORDERED: POTASSIUM CHLORIDE LIQ 20 MEQ UDC PO PRN (17:35)
[2017-09-29] MEDS ORDERED: POTASSIUM CHL 40 MEQ/NS 0.45% 500 ML IV PRN (17:35)
[2017-09-29] MEDS ORDERED: K-LYTE EFFERVESCENT PO PRN (17:35)
[2017-09-29] MEDS ORDERED: POTASSIUM CHL 60 MEQ/NS 0.45% 500 ML IV PRN (17:35)
[2017-09-29] MEDS: REQUIP PO SCH ×2 (17:43→22:19)
[2017-09-29] MEDS: LYRICA CAP 150 MG PO SCH ×2 (17:43→22:17)
--- NOTE | 2017-09-29 17:58 | DR.H&P ---
H&P - History & Physical for Day of: H&P Date: 09/29/17 - Chief Complaint Chief Complaint: ams - Allergies Allergies/Adverse Reactions: Allergies Allergy/AdvReac Type Severity Reaction Status Date / Time codeine Allergy Verified 08/15/17 22:55 iodine Allergy Verified 08/15/17 22:55 - History of Present Illness History of Present Illness: 82 WM ER ADMISSION AFTER PRESENTING WITH AMS. PT WAS FEBRILE IN ED. PT HAD INCREASED CHEST CONGESTION AND FAMILY REPORTS HE HAD ANTIBIOTIC CALLED IN ONE DAY AGO FOR "PNEUMONIA" PT HAD ELEVATED DDIMER IN ED, VQ SCAN ORDERD. PT HAS PMH OF COPD, CAD, HTN, OA, RLS, HYPERLIPIDEMIA. PT ADMITTED TO ICU FOR TREATMENT AND EVALUATION OF AMS - Past Medical History Past Medical History: Anxiety, Arthritis, COPD, Coronary Artery Disease, Diabetes, GERD, Hypertension, PUD - Past Surgical History Surgical History: Ortho Surgery, Thyroidectomy - Family History Family Medical History: Diabetes Mellitus, Heart Failure, Hypertension - Social History Does patient currently use any type of tobacco product: No Have you used tobacco products in the last 12 months: No Type of Tobacco Use: None Does any household member use tobacco: No Alcohol Use: None Drug Use: None - Medications Home Medications: Ipratropium-Albuterol [Combivent Respimat Inhaler] 1 inh INH QID 09/29/17 [ History Confirmed 09/29/17] Polyethylene Glycol Pwd Ud [MIRALAX POWDER (17 GM DOSE) *] 1 each PO DAILY 09/29 [History Confirmed 09/29/17] - Review of Systems Constitutional: Fever, Weakness Eyes: No Symptoms Reported ENT: No Symptoms Reported Respiratory: SOB with Excertion, Sputum, Wheezing Cardiovascular: No Symptoms Reported Gastrointestinal: No Symptoms Reported Genitourinary: No Symptoms Reported Musculoskeletal: Back Pain, Leg Pain Skin: No Symptoms Reported Neurological: Weakness, Change in Speech, Confusion - Physical Exam Vital Signs: Temperature 97.7 F Pulse Rate [Apical] 67 Pulse Rate [Right Brachial] 68 Pulse Rate 105 Respiratory Rate 18 Blood Pressure [Left Arm] 131/60 Blood Pressure [Right Arm] 121/59 Blood Pressure 122/88 O2 Sat by Pulse Oximetry 98 Oriented: Person Eyes: Normal Ear: Normal Nose: Normal Throat: Normal Respiratory: Rhonchi Throughout, RLL Diminished, LLL Diminished Cardiovascular: Normal : Normal Auscultation: Bowel Sounds: Normal Palpation: Normal Tenderness: Normal Skin: Decreased Turgur Musculoskeletal: Right, Left, Leg, Back:Lumbar, Motor Deficit Psychiatric: Anxiety Speech Pattern: Delayed, Slurred - Assessment/Plan (1) Altered mental status Qualifiers: Altered mental status type: disorientation Qualified Code(s): R41.0 - Disorientation, unspecified Status: Acute Plan: ADMIT, ICU CARDIAC MONITORING. ADMISSION LABS CBC CMP BLOOD CULTURES, UA , UC. MAG, CARDIAC ENZYMES. RESP THERAPY, SUPPLEMENTAL O2. IV ATBX, RESUME HOME MEDICATION FOR BP AND LIPIDS (2) COPD (chronic obstructive pulmonary disease) Status: Acute (3) Diabetes Status: Acute (4) Hypoxia Status: Acute (5) CHF (congestive heart failure) Status: Chronic (6) Cardiac arrhythmia Status: Chronic (7) GERD (gastroesophageal reflux disease) Status: Chronic
[2017-09-29] MEDS: LEVAQUIN PREMIX IV 500 MG 500 MG/100 ML BAG IV SCH (19:31)
[2017-09-30] MEDS: RESTORIL CAP 15 MG PO PRN ×2 (01:38→21:14)
[2017-09-30] MEDS: NORCO 5/325 MG TAB PO PRN ×3 (05:20→21:14)
[2017-09-30] MEDS: TUSSIONEX PENNKINETIC SUSP PO PRN ×2 (05:21→21:14)
[2017-09-30] MEDS: ROBITUSSIN DM PO PRN ×2 (05:21→21:14)
[2017-09-30 06:34] LABS: BASOPHILS % (AUTO) 0.6 % (0.2-1.0); EOSINOPHILS # (AUTO) 0.2 x10^3/uL (0.0-0.2); EOSINOPHILS % (AUTO) 2.8 % (0.9-2.9); HEMATOCRIT 28.6 % (42.0-54.0); HEMOGLOBIN 9.9 g/dL (13.5-18.0); LYMPHOCYTES # (AUTO) 1.2 X10^3/uL (1.3-2.9); LYMPHOCYTES % (AUTO) 17.9 % (21.0-51.0); MEAN CORPUSCULAR HEMOGLOBIN 29.2 pg (27.0-34.0); MEAN CORPUSCULAR HGB CONC 34.6 g/dL (33.0-35.0); MEAN CORPUSCULAR VOLUME 84.3 fL (80.0-100.0); MEAN PLATELET VOLUME 10.3 fL (7.4-11.0); MONOCYTES # (AUTO) 0.5 x10^3/uL (0.3-0.8); MONOCYTES % (AUTO) 7.1 % (0.0-13.0); NEUTROPHILS # (AUTO) 4.8 x10^3/uL (2.2-4.8); NEUTROPHILS % (AUTO) 71.6 % (42.0-75.0); PLATELET COUNT 100 X10^3/uL (150.0-450.0); RED CELL DISTRIBUTION WIDTH 15.6 % (11.6-16.5); WHITE BLOOD COUNT 6.7 X10^3/uL (3.6-10.0)
[2017-09-30 06:51] LABS: ALANINE AMINOTRANSFERASE 23 Units/L (12-78); ALBUMIN 2.7 g/dL (3.4-5.0); ALKALINE PHOSPHATASE 48 Units/L (46-116); ASPARTATE AMINO TRANSFERASE 19 Units/L (15-37); BLOOD UREA NITROGEN 12 mg/dL (7-18); CARBON DIOXIDE 26.1 mmol/L (21-32); CHLORIDE 108 mmol/L (98-107); CREATININE 0.94 mg/dL (0.70-1.30); SODIUM 142 mmol/L (136-145); TOTAL PROTEIN 5.8 g/dL (6.4-8.2); eGFR BLACK RACES > 60 (>60); eGFR NON BLACK RACES > 60 (>60)
[2017-09-30] MEDS: REQUIP PO SCH ×2 (08:08→21:14)
[2017-09-30] MEDS: LEVAQUIN PREMIX IV 500 MG 500 MG/100 ML BAG IV SCH (08:08)
[2017-09-30] MEDS: LYRICA CAP 150 MG PO SCH ×2 (08:08→21:14)
--- NOTE | 2017-09-30 12:25 | RAD ---
Exam: Portable chest History: 82-year-old male with cough and shortness of breath. Comparison: Previous chest radiograph from 09/29/2017 Findings: Cardiac pacemaker is again seen on the right. Old pacing wires are still present on the left. Overall heart size and pulmonary vasculature are normal. Minimal right basilar atelectasis is present. Other benavides lungs are clear. Persistent blunting of the left costophrenic angle may represent a small left e ffusion. Impression: Blunting of the left costophrenic angle may be related to small effusion. Minimal right basilar atelectasis Reported By:
--- NOTE | 2017-09-30 12:30 | NM ---
Indication: Shortness of breath Exam: V/Q lung scan Comparison: Chest x-ray 09/30/2017 Technique: The patient was ventilated with 30 mCi of technetium 99 M labeled DTPA and spot images wer e obtained. The patient was injected with 5 mCi of technetium 99 M maa IV and spot perfusion images w ere obtained. Findings: The left lung is smaller than the right with moderate matching heterogeneous ventilation an d perfusion throughout the left lung which appears matched . No large wedge-shaped peripheral ventila tion or perfusion defects are seen. There are moderate central areas of increased uptake bilaterally. There is mild volume loss left hemithorax with a questionable small effusion versus pleural thickeni ng inferiorly on the chest x-ray. Impression: Slightly small appearance to the left lung compared to the right with mild heterogeneous matched areas of decreased perfusion and ventilation scattered throughout the left lung which is low to intermediate probability for a pulmonary embolus. Recommend follow-up. Reported By:
--- NOTE | 2017-09-30 13:08 | PCM.PROG ---
Progress Note - Progress Note for Day of Date: 09/30/17 - Subjective Subjective: 82 WM ER ADMISSION ONE DAY AGO WITH AMS, FEVER, CHEST CONGESTION. PT IN ICU FOR CONTINUOUS CARDIAC MONITORING, CT HEAD WITHOUT ACUTE CHANGES ON ADMISSION. BLOOD CULTURES COLLECTED ON ADMISSION. PT ON SUPPLEMENTAL O2, IV ATBX. PT CO LEG PAIN AND LOWER EXTREMITY SWELLING. CONTINUE WITH RESP THERAPY, CONSULT PT - Past Medical Family Social History Past Med/Fam/Surg Hx: No changes since H&P Allergies: Allergies codeine Allergy (Verified 08/15/17 22:55) iodine Allergy (Verified 08/15/17 22:55) - Review of Systems ROS: No change since H&P - Vital Signs and I&O's Vital Signs: Temperature 98.4 F Pulse Rate [Apical] 75 Pulse Rate [Right Brachial] 68 Pulse Rate 105 Respiratory Rate 18 Blood Pressure [Left Arm] 197/74 Blood Pressure [Right Arm] 121/59 Blood Pressure 122/88 O2 Sat by Pulse Oximetry 100 Intake and Output: Intake & Output 09/28/17 09/29/17 09/30/17 10/01/17 11:59 11:59 11:59 11:59 Intake Total 2179 Balance 2179 - Physical Exam Oriented: Time, Person, Place Eyes: Normal Ear: Normal Nose: Normal Throat: Normal Respiratory: Diminished, Wheezes, Rhonchi Cardiovascular: Normal : Normal Auscultation: Bowel Sounds: Normal Tenderness: Normal Skin: Decreased Turgur Musculoskeletal: Right, Left, Leg, Back:Lumbar, Motor Deficit Psychiatric: Anxiety Speech Pattern: Clear, Appropriate - Laboratory and Diagnostics Result Diagrams: 09/30/17 05:48 09/30/17 05:48 Labs: 09/29/17 07:08 Urine,Catheterized Urine Culture - Preliminary Laboratory WBC 6.7 X10^3/uL (3.6-10.0) 09/30/17 05:48 RBC 3.40 X10^6/uL (4.7-6.0) L 09/30/17 05:48 Hgb 9.9 g/dL (13.5-18.0) L 09/30/17 05:48 Hct 28.6 % (42.0-54.0) L 09/30/17 05:48 MCV 84.3 fL (80.0-100.0) 09/30/17 05:48 MCH 29.2 pg (27.0-34.0) 09/30/17 05:48 MCHC 34.6 g/dL (33.0-35.0) 09/30/17 05:48 RDW 15.6 % (11.6-16.5) 09/30/17 05:48 Plt Count 100 X10^3/uL (150.0-450.0) L 09/30/17 05:48 MPV 10.3 fL (7.4-11.0) 09/30/17 05:48 Neut % (Auto) 71.6 % (42.0-75.0) 09/30/17 05:48 Lymph % (Auto) 17.9 % (21.0-51.0) L 09/30/17 05:48 [place] % (Auto) 7.1 % (0.0-13.0) 09/30/17 05:48 Eos % (Auto) 2.8 % (0.9-2.9) 09/30/17 05:48 Baso % (Auto) 0.6 % (0.2-1.0) 09/30/17 05:48 Neut # (Auto) 4.8 x10^3/uL (2.2-4.8) 09/30/17 05:48 Lymph # (Auto) 1.2 X10^3/uL (1.3-2.9) L 09/30/17 05:48 [place] # (Auto) 0.5 x10^3/uL (0.3-0.8) 09/30/17 05:48 Eos # (Auto) 0.2 x10^3/uL (0.0-0.2) 09/30/17 05:48 Baso # (Auto) 0.0 X10^3/uL (0.0-0.1) 09/30/17 05:48 Absolute Nucleated RBC 0.2 /100WBC 09/30/17 05:48 INR Target Range - 09/29/17 00:55 INR 0.99 (0.8-1.3) 09/29/17 00:55 APTT 27.2 SECONDS (22.9-36.5) 09/29/17 00:55 PTT Comment - 09/29/17 00:55 D-Dimer 2530 ng/mL (0-400) H* 09/29/17 00:55 Sample Site Rbra 09/29/17 00:13 ABG pH 7.440 (7.35-7.45) 09/29/17 00:13 ABG pCO2 47.0 mmHg (35.0-45.0) H 09/29/17 00:13 ABG pO2 81.0 mmHg (80.0-100.0) 09/29/17 00:13 ABG HCO3 31.9 mmol/L (22-26) H* 09/29/17 00:13 ABG O2 Saturation 96.0 % (90-100) 09/29/17 00:13 ABG Base Excess 6.7 mmol/L (-2.0-2.0) H 09/29/17 00:13 Romain Test Na 09/29/17 00:13 A-a Gradient 60.0 mmHg 09/29/17 00:13 FiO2 28.000 09/29/17 00:13 Blood Gas Comments Marianne abg well-mtf 09/29/17 00:13 Sodium 142 mmol/L (136-145) 09/30/17 05:48 Corrected Sodium TNP 09/30/17 05:48 Potassium 3.7 mmol/L (3.5-5.1) 09/30/17 05:48 Chloride 108 mmol/L (98-107) H 09/30/17 05:48 Carbon Dioxide 26.1 mmol/L (21-32) 09/30/17 05:48 BUN 12 mg/dL (7-18) 09/30/17 05:48 Creatinine 0.94 mg/dL (0.70-1.30) 09/30/17 05:48 Est GFR (MDRD) Af Amer > 60 (>60) 09/30/17 05:48 Est GFR (MDRD) Non-Af > 60 (>60) 09/30/17 05:48 Glucose 104 mg/dL (65-99) H 09/30/17 05:48 POC Glucose (mg/dL) 121 mg/dL (65-99) H 09/29/17 19:35 Calcium 8.0 mg/dL (8.5-10.1) L 09/30/17 05:48 Corrected Calcium 9.0 mg/dL (8.5-10.1) 09/30/17 05:48 Magnesium 1.3 mg/dL (1.7-2.9) L 09/29/17 00:55 Total Bilirubin 0.70 mg/dL (0.2-1.0) 09/30/17 05:48 AST 19 Units/L (15-37) 09/30/17 05:48 ALT 23 Units/L (12-78) 09/30/17 05:48 Alkaline Phosphatase 48 Units/L (46-116) 09/30/17 05:48 Creatine Kinase 166 Units/L (39-308) 09/29/17 06:50 CK-MB (CK-2) < 1.0 ng/mL (0-4.0) 09/29/17 06:50 CK/CKMB % Calc 0.6 % (<4) 09/29/17 06:50 Troponin I < 0.02 ng/mL (0-1.5) 09/29/17 06:50 B-Natriuretic Peptide 53.5 pg/mL (0-79) 09/29/17 00:55 Total Protein 5.8 g/dL (6.4-8.2) L 09/30/17 05:48 Albumin 2.7 g/dL (3.4-5.0) L 09/30/17 05:48 Globulin 3.1 g/dL (2.5-4.5) 09/30/17 05:48 Albumin/Globulin Ratio 0.9 Ratio (1.1-2.1) L 09/30/17 05:48 Specimen Type Catherized urine 09/29/17 07:08 Urine Color Yellow (YELLOW) 09/29/17 07:08 Urine Appearance Clear (CLEAR) 09/29/17 07:08 Urine pH 6.0 (5.0 - 8.0) 09/29/17 07:08 Ur Specific [place]en 1.015 (1.000-1.030) 09/29/17 07:08 Urine Protein Negative (NEGATIVE) 09/29/17 07:08 Urine Glucose (UA) Negative (NEGATIVE) 09/29/17 07:08 Urine Ketones Negative (NEGATIVE) 09/29/17 07:08 Urine Occult Blood Negative (NEGATIVE) 09/29/17 07:08 Urine Nitrite Negative (NEGATIVE) 09/29/17 07:08 Urine Bilirubin Negative (NEGATIVE) 09/29/17 07:08 Urine Urobilinogen Normal (NORMAL) 09/29/17 07:08 Ur Leukocyte Esterase Negative (NEGATIVE) 09/29/17 07:08 - Plan (1) Altered mental status Status: Acute Qualifiers: Altered mental status type: disorientation Qualified Code(s): R41.0 - Disorientation, unspecified Plan: ICU CARDIAC MONITORING. REPEAT AM LABS CBC CMP, BLOOD CULTURES COLLECTED ON ADMISSION. MAG, CARDIAC ENZYMES ON ADMISSION. RESP THERAPY, SUPPLEMENTAL O2. IV ATBX, MAGNESIUM REPLACEMENT (2) COPD (chronic obstructive pulmonary disease) Status: Acute Qualifiers: COPD type: COPD with acute exacerbation Qualified Code(s): J44.1 - Chronic obstructive pulmonary disease with (acute) exacerbation Plan: RESP THERAPY IV ATBX, SUPPLEMENTAL O2 (3) Diabetes Status: Acute (4) Hypoxia Status: Acute (5) CHF (congestive heart failure) Status: Chronic (6) Cardiac arrhythmia Status: Chronic (7) GERD (gastroesophageal reflux disease) Status: Chronic (8) Bilateral lower extremity edema Status: Acute Plan: LOWER EXTREMITY US
[2017-09-30] MEDS ORDERED: PHARMACY CONSULT - DOSE _____ XX SCH (14:00)
[2017-09-30] MEDS: LOVENOX INJ 80 MG SYR SC SCH (14:07)
--- NOTE | 2017-09-30 14:07 | VAS ---
HISTORY: Elevated D-dimer Study: Bilateral lower extremity venous vascular examination: Multiplanar ultrasonographic examinat ion of the deep venous system of both lower extremities was performed using color, grayscale and puls ed Doppler imaging. Augmentation and compression techniques utilized. Comparison: None Findings: The common femoral veins, greater saphenous junctions, superficial femoral veins, popliteal veins and tibial veins show normal color flow. No intraluminal filling defects are identified. The common fe moral veins, superficial femoral veins, popliteal veins and tibial veins demonstrate normal augmentat ion and compression. Of note is made of a popliteal cyst on the right measuring 2.5 x 1.6 x 2.5 cm. IMPRESSION: 1. No evidence of deep venous thrombosis involving either lower extremity. 2. Right-sided popliteal cyst. Reported By:
[2017-09-30] MEDS ORDERED: NS + KCL 20 MEQ/L 1,000 ML IV ONE (20:43)
[2017-09-30] MEDS: NS 1000 ML 1,000 ML with POTASSIUM CHLORIDE INJ 20 MEQ VIAL 20 MEQ IV SCH ×2 (20:55)
[2017-10-01] MEDS: NS 1000 ML 1,000 ML with POTASSIUM CHLORIDE INJ 20 MEQ VIAL 20 MEQ IV SCH ×4 (03:36→12:42)
[2017-10-01] MEDS: NORCO 5/325 MG TAB PO PRN ×3 (04:22→20:09)
[2017-10-01 06:25] LABS: BASOPHILS % (AUTO) 0.4 % (0.2-1.0); EOSINOPHILS # (AUTO) 0.4 x10^3/uL (0.0-0.2); EOSINOPHILS % (AUTO) 5.2 % (0.9-2.9); HEMATOCRIT 29.2 % (42.0-54.0); HEMOGLOBIN 10.1 g/dL (13.5-18.0); LYMPHOCYTES # (AUTO) 1.7 X10^3/uL (1.3-2.9); LYMPHOCYTES % (AUTO) 25.3 % (21.0-51.0); MEAN CORPUSCULAR HEMOGLOBIN 29.3 pg (27.0-34.0); MEAN CORPUSCULAR HGB CONC 34.7 g/dL (33.0-35.0); MEAN CORPUSCULAR VOLUME 84.3 fL (80.0-100.0); MEAN PLATELET VOLUME 9.5 fL (7.4-11.0); MONOCYTES # (AUTO) 0.6 x10^3/uL (0.3-0.8); NEUTROPHILS # (AUTO) 4.1 x10^3/uL (2.2-4.8); NEUTROPHILS % (AUTO) 60.1 % (42.0-75.0); PLATELET COUNT 107 X10^3/uL (150.0-450.0); RED BLOOD COUNT 3.46 X10^6/uL (4.7-6.0); RED CELL DISTRIBUTION WIDTH 15.4 % (11.6-16.5); WHITE BLOOD COUNT 6.8 X10^3/uL (3.6-10.0)
[2017-10-01 06:27] LABS: ALANINE AMINOTRANSFERASE 21 Units/L (12-78); ALBUMIN 2.8 g/dL (3.4-5.0); ALKALINE PHOSPHATASE 48 Units/L (46-116); ASPARTATE AMINO TRANSFERASE 18 Units/L (15-37); BLOOD UREA NITROGEN 8 mg/dL (7-18); CALCIUM 8.5 mg/dL (8.5-10.1); CARBON DIOXIDE 26.9 mmol/L (21-32); CHLORIDE 107 mmol/L (98-107); COR CA(FOR HYPOALB) 9.5 mg/dL (8.5-10.1); CREATININE 1.04 mg/dL (0.70-1.30); SODIUM 142 mmol/L (136-145); TOTAL PROTEIN 6.3 g/dL (6.4-8.2); eGFR BLACK RACES > 60 (>60); eGFR NON BLACK RACES > 60 (>60)
[2017-10-01] MEDS: LEVAQUIN PREMIX IV 500 MG 500 MG/100 ML BAG IV SCH (09:01)
[2017-10-01] MEDS: LYRICA CAP 150 MG PO SCH ×2 (09:01→20:09)
[2017-10-01] MEDS: LOVENOX INJ 80 MG SYR SC SCH (09:01)
[2017-10-01] MEDS: REQUIP PO SCH ×2 (09:01→20:08)
[2017-10-01] MEDS ORDERED: PHARMACY CONSULT - DOSE _____ XX SCH (10:00)
[2017-10-01] MEDS: ELIQUIS PO SCH ×2 (12:26→20:09)
[2017-10-01] MEDS ORDERED: NS + KCL 20 MEQ/L 1,000 ML IV SCH (14:00)
[2017-10-01] MEDS: ROCEPHIN VIAL 1 GM IM SCH (15:30)
[2017-10-01] MEDS: RESTORIL CAP 15 MG PO PRN (20:08)
[2017-10-02 06:50] LABS: ALANINE AMINOTRANSFERASE 21 Units/L (12-78); ALBUMIN 3.1 g/dL (3.4-5.0); ALKALINE PHOSPHATASE 51 Units/L (46-116); ASPARTATE AMINO TRANSFERASE 20 Units/L (15-37); BLOOD UREA NITROGEN 7 mg/dL (7-18); CALCIUM 8.6 mg/dL (8.5-10.1); CARBON DIOXIDE 30.5 mmol/L (21-32); CHLORIDE 106 mmol/L (98-107); COR CA(FOR HYPOALB) 9.3 mg/dL (8.5-10.1); MAGNESIUM 1.5 mg/dL (1.7-2.9); SODIUM 142 mmol/L (136-145); TOTAL PROTEIN 6.2 g/dL (6.4-8.2); eGFR BLACK RACES > 60 (>60); eGFR NON BLACK RACES > 60 (>60)
[2017-10-02 06:51] LABS: BASOPHILS % (AUTO) 0.6 % (0.2-1.0); EOSINOPHILS # (AUTO) 0.3 x10^3/uL (0.0-0.2); EOSINOPHILS % (AUTO) 4.2 % (0.9-2.9); HEMATOCRIT 32.5 % (42.0-54.0); HEMOGLOBIN 11.2 g/dL (13.5-18.0); LYMPHOCYTES # (AUTO) 1.7 X10^3/uL (1.3-2.9); LYMPHOCYTES % (AUTO) 26.7 % (21.0-51.0); MEAN CORPUSCULAR HGB CONC 34.6 g/dL (33.0-35.0); MEAN CORPUSCULAR VOLUME 83.7 fL (80.0-100.0); MEAN PLATELET VOLUME 9.7 fL (7.4-11.0); MONOCYTES # (AUTO) 0.6 x10^3/uL (0.3-0.8); MONOCYTES % (AUTO) 9.2 % (0.0-13.0); NEUTROPHILS # (AUTO) 3.8 x10^3/uL (2.2-4.8); NEUTROPHILS % (AUTO) 59.3 % (42.0-75.0); PLATELET COUNT 129 X10^3/uL (150.0-450.0); RED BLOOD COUNT 3.88 X10^6/uL (4.7-6.0); RED CELL DISTRIBUTION WIDTH 15.7 % (11.6-16.5); WHITE BLOOD COUNT 6.4 X10^3/uL (3.6-10.0)
[2017-10-02] MEDS ORDERED: XYLOCAINE 1 % (PLAIN) ONE (08:16)
[2017-10-02] MEDS: LYRICA CAP 150 MG PO SCH (08:41)
[2017-10-02] MEDS: ELIQUIS PO SCH ×2 (08:41)
[2017-10-02] MEDS: ROCEPHIN VIAL 1 GM IM SCH (08:41)
[2017-10-02] MEDS: REQUIP PO SCH (08:41)
[2017-10-02] MEDS ORDERED: LEVAQUIN TAB 500 MG PO SCH (09:00)
[2017-10-02] MEDS ORDERED: LEVSIN/MAALOX/LIDOC VISC PO ONE (16:37)
[2017-10-02 17:42] VITALS: BP 168/93
== END 2017-10-02 17:15 | disposition home or self-care (01) | DRG 176 ==
LOC: ER 00:08 → OBS 07:37 → ICU 11:47 → OBSVTOIN 09-30 12:00
PROVIDERS: ADMIT Internal Medicine; ATTEND Internal Medicine
DX: I26.99 Other pulmonary embolism without acute cor pulmonale (principal); R41.0 Disorientation, unspecified; E11.65 Type 2 diabetes mellitus with hyperglycemia; I25.10 Atherosclerotic heart disease of native coronary artery without angina pectoris; R06.02 Shortness of breath; I50.9 Heart failure, unspecified; K21.9 Gastro-esophageal reflux disease without esophagitis; I49.8 Other specified cardiac arrhythmias; R09.02 Hypoxemia; R60.0 Localized edema; I10 Essential (primary) hypertension; M19.90 Unspecified osteoarthritis, unspecified site; F41.8 Other specified anxiety disorders; N28.9 Disorder of kidney and ureter, unspecified; R94.4 Abnormal results of kidney function studies; Z99.81 Dependence on supplemental oxygen
CPT/HCPCS: 36415; 36600; 51701; 70450; 71045; 71250; 78582; 80053; 81003; 82550; 82553; 82803; 83735; 83880; 84484; 85025; 85378; 85610; 85730; 87040; 87086; 93005; 93010; 93970; 96365; 96367; 99284; A4222; A9540; A9567; G0378; J0696; J1650; J1956; J2001; J3480

== ENCOUNTER 2018-01-20 15:49 | Inpatient (IN) ==
[2018-01-20] MEDS ORDERED: DILAUDID INJ IVP ONE (17:05)
[2018-01-20] MEDS ORDERED: NS 100 ML IV 100 ML IV ONE (17:06)
[2018-01-20] MEDS ORDERED: DILAUDID INJ ONE (17:08)
--- NOTE | 2018-01-20 17:13 | DR.GENAD ---
HPI Time Seen Time Seen by Provider: 01/20/18 17:02 Complaint/Symptoms Chief Complaint Doctors Comments: Patient presents with his daughter with complaint of generalized pain not relieved by his routine analgesics. Daughter reports that he lives alone, but today he could not walk due to pain. He takes two schedule II narcotics for generalized bone pain. Chief Complaint:: EMS OUT TO PT WITH C/O PAIN ALL OVER PTS DAUGHTER TOLD EMS PT HAS BEEN CRYING OUT MORE FREQUENT WITH PAIN , UPON ARRIVAL EMS STATES PT WAS WHEEZING SO PT WAS GIVEN A RX TX , Self Treatment fo Chief Complaint: PT MOANING WHEN HE WAS MOVED TO STRETCHER AND WHEEZING NOTED ,,BR Source History Provided: Family Member and EMS Mode of Arrival Mode of Arrival: Stretcher Timing Onset of Chief Complaint: 01/20/18 PMH PMH Past Medical History: Yes Past Medical History: Anxiety, Arthritis, COPD, Coronary Artery Disease, Diabetes, GERD, Hypertension and PUD Past Surgical History: Yes Surgical History: Ortho Surgery and Thyroidectomy Family History History of Family Medical Conditions: Yes Family Medical History: Diabetes Mellitus, Heart Failure and Hypertension Social History Does patient currently use any type of tobacco product: No Have you used tobacco products in the last 12 months: No Type of Tobacco Use: None Does any household member use tobacco: No Alcohol Use: None Do you use any recreational Drugs:: No Lives With: Family Lives Where: Home infectious screening In the last 2 months have you had wt loss of >10#?: NO Have you had fever, night sweats or hemotysis?: No Have you traveled outside the country in the last 6 months?: No Isolation: Standard PE Vital Signs Vitals: Temperature 100.5 F Pulse Rate [Left Brachial] 67 Pulse Rate 90 Respiratory Rate 12 Blood Pressure [Left Arm] 118/66 Blood Pressure [Right Arm] 117/58 Blood Pressure 121/53 O2 Sat by Pulse Oximetry 99 General Limitations: Physical Limitation General Appearance: Alert, Lethargic and In Distress Head Head Exam: Normal Inspection, Atraumatic and Normocephalic Eyes Eye exam: Normal Appearance, PERRL and EOMI ENT ENT Exam: Normal Exam, Normal Oropharynx and Normal External Ear Exam External Ear Exam: Normal External Inspection, Auricular Hematoma and Pain with Movement TM/Canal Exam: Bilateral: Normal Nose Exam: Normal Nose Exam Mouth Exam: Normal Inspection Throat Exam: Normal Inspection Neck Neck Exam: Normal Inspection Chest Chest Inspection: Normal Inspection and Symmetric Chest Wall Rise; negative Tenderness Respiratory Respiratory Exam: Normal Lung Sounds Bilat Respiratory Exam: Bilateral: Wheezing (expiratory) Cardiovascular Cardiovascular Exam: Regular Rate and Normal Rhythm Extremities Extremities Exam: Normal Inspection, Tenderness (right knee) and Normal Capillary Refill Neurologic Neurological Exam: Alert, Oriented X3 and CN II-XII Intact Psychiatric Psychiatric Exam: Normal Affect and Depressed Skin Skin Exam: Warm, Dry, Intact and Normal Color COURSE Consultation Called: 21:08 Consultation Comments: Dr Arizmendi agreed to admit for further evaluation and treatment ROR Labs Reviewed Laboratory Results Reviewed?: Yes Result Diagrams: 01/20/18 17:29 01/20/18 17: Laboratory: WBC 9.5 X10^3/uL (3.6-10.0) 01/20/18 17: RBC 3.66 X10^6/uL (4.7-6.0) L 01/20/18 17: Hgb 10.4 g/dL (13.5-18.0) L 01/20/18 17: Hct 30.8 % (42.0-54.0) L 01/20/18 17: MCV 84.1 fL (80.0-100.0) 01/20/18 17: MCH 28.4 pg (27.0-34.0) 01/20/18 17: MCHC 33.8 g/dL (33.0-35.0) 01/20/18 17: RDW 16.4 % (11.6-16.5) 01/20/18 17: Plt Count 121 X10^3/uL (150.0-450.0) L 01/20/18 17: MPV 9.3 fL (7.4-11.0) 01/20/18 17: Neut % (Auto) 78.6 % (42.0-75.0) H 01/20/18 17: Lymph % (Auto) 10.1 % (21.0-51.0) L 01/20/18 17: [place] % (Auto) 8.8 % (0.0-13.0) 01/20/18 17: Eos % (Auto) 2.1 % (0.9-2.9) 01/20/18 17: Baso % (Auto) 0.4 % (0.2-1.0) 01/20/18 17:29 Neut # (Auto) 7.4 x10^3/uL (2.2-4.8) H 01/20/18 17:29 Lymph # (Auto) 1.0 X10^3/uL (1.3-2.9) L 01/20/18 17:29 [place] # (Auto) 0.8 x10^3/uL (0.3-0.8) 01/20/18 17:29 Eos # (Auto) 0.2 x10^3/uL (0.0-0.2) 01/20/18 17:29 Baso # (Auto) 0.0 X10^3/uL (0.0-0.1) 01/20/18 17:29 Absolute Nucleated RBC 0.0 /100WBC 01/20/18 17:29 D-Dimer 653 ng/mL (0-400) H* 01/20/18 17:29 Sodium 140 mmol/L (136-145) 01/20/18 17:29 Corrected Sodium 141 mmol/L (136-145) 01/20/18 17:29 Potassium 3.9 mmol/L (3.5-5.1) 01/20/18 17:29 Chloride 103 mmol/L (98-107) 01/20/18 17:29 Carbon Dioxide 33.1 mmol/L (21-32) H 01/20/18 17:29 BUN 10 mg/dL (7-18) 01/20/18 17:29 Creatinine 1.26 mg/dL (0.70-1.30) 01/20/18 17:29 Est GFR (MDRD) Af Amer > 60 (>60) 01/20/18 17:29 Est GFR (MDRD) Non-Af 58 (>60) L 01/20/18 17:29 Glucose 132 mg/dL (65-99) H 01/20/18 17:29 Calcium 8.3 mg/dL (8.5-10.1) L 01/20/18 17:29 Corrected Calcium 9.1 mg/dL (8.5-10.1) 01/20/18 17:29 Total Bilirubin 0.70 mg/dL (0.2-1.0) 01/20/18 17:29 AST 19 Units/L (15-37) 01/20/18 17:29 ALT 25 Units/L (12-78) 01/20/18 17:29 Alkaline Phosphatase 65 Units/L (46-116) 01/20/18 17:29 C-Reactive Protein 52.00 mg/L (0-3.0) H 01/20/18 17:29 Total Protein 6.4 g/dL (6.4-8.2) 01/20/18 17:29 Albumin 3.0 g/dL (3.4-5.0) L 01/20/18 17:29 Globulin 3.4 g/dL (2.5-4.5) 01/20/18 17:29 Albumin/Globulin Ratio 0.9 Ratio (1.1-2.1) L 01/20/18 17:29 Specimen Type Clean catch urine 01/20/18 23:18 Urine Color Dark yellow (YELLOW) 01/20/18 23:18 Urine Appearance Clear (CLEAR) 01/20/18 23:18 Urine pH 8.0 (5.0 - 8.0) 01/20/18 23:18 Ur Specific [place] 1.010 (1.000-1.030) 01/20/18 23:18 Urine Protein 1+ (NEGATIVE) 01/20/18 23:18 Urine Glucose (UA) Negative (NEGATIVE) 01/20/18 23:18 Urine Ketones 2+ (NEGATIVE) 01/20/18 23:18 Urine Occult Blood Negative (NEGATIVE) 01/20/18 23:18 Urine Nitrite Negative (NEGATIVE) 01/20/18 23:18 Urine Bilirubin Negative (NEGATIVE) 01/20/18 23:18 Urine Urobilinogen Normal (NORMAL) 01/20/18 23:18 Ur Leukocyte Esterase Negative (NEGATIVE) 01/20/18 23:18 Urine RBC None seen /HPF (NONE SEEN) 01/20/18 23:18 Urine WBC None seen /HPF (NONE SEEN) 01/20/18 23:18 Ur Squamous Epith Cells Rare /HPF (NEGATIVE) 01/20/18 23:18 Urine Bacteria Negative /HPF (NEGATIVE) 01/20/18 23:18 Ur Culture Indicated? No/not indicated 01/20/18 23:18 XRAY XRAY Findings: Chest: cardiomegaly and pulmonary vascular congestion Diagnosis Discharge Problem: Intractable pain, Cardiomegaly, Pulmonary edema cardiac cause, D-dimer, elevated ADDITIONAL NOTES Additional Notes Additional Notes: Patient admitted to the service of Dr. Ren per Dr. Arizmendi
[2018-01-20 17:56] LABS: BASOPHILS % (AUTO) 0.4 % (0.2-1.0); EOSINOPHILS # (AUTO) 0.2 x10^3/uL (0.0-0.2); EOSINOPHILS % (AUTO) 2.1 % (0.9-2.9); HEMATOCRIT 30.8 % (42.0-54.0); HEMOGLOBIN 10.4 g/dL (13.5-18.0); LYMPHOCYTES % (AUTO) 10.1 % (21.0-51.0); MEAN CORPUSCULAR HEMOGLOBIN 28.4 pg (27.0-34.0); MEAN CORPUSCULAR HGB CONC 33.8 g/dL (33.0-35.0); MEAN CORPUSCULAR VOLUME 84.1 fL (80.0-100.0); MEAN PLATELET VOLUME 9.3 fL (7.4-11.0); MONOCYTES # (AUTO) 0.8 x10^3/uL (0.3-0.8); MONOCYTES % (AUTO) 8.8 % (0.0-13.0); NEUTROPHILS # (AUTO) 7.4 x10^3/uL (2.2-4.8); NEUTROPHILS % (AUTO) 78.6 % (42.0-75.0); PLATELET COUNT 121 X10^3/uL (150.0-450.0); RED BLOOD COUNT 3.66 X10^6/uL (4.7-6.0); RED CELL DISTRIBUTION WIDTH 16.4 % (11.6-16.5); WHITE BLOOD COUNT 9.5 X10^3/uL (3.6-10.0)
--- NOTE | 2018-01-20 17:56 | RAD ---
HISTORY: Altered mental status Study: Single view of the chest. Comparison: None. Findings: Heart is enlarged. Mild pulmonary vascular congestion. No focal consolidations, pleural effusions or pneumothorax. Osseous structures demonstrate no acute abnormality. IMPRESSION: 1. Cardiomegaly and pulmonary vascular congestion. Reported By:
[2018-01-20 18:02] LABS: ALANINE AMINOTRANSFERASE 25 Units/L (12-78); ALKALINE PHOSPHATASE 65 Units/L (46-116); ASPARTATE AMINO TRANSFERASE 19 Units/L (15-37); BLOOD UREA NITROGEN 10 mg/dL (7-18); CALCIUM 8.3 mg/dL (8.5-10.1); CARBON DIOXIDE 33.1 mmol/L (21-32); CHLORIDE 103 mmol/L (98-107); COR CA(FOR HYPOALB) 9.1 mg/dL (8.5-10.1); COR NA(FOR HYPERGLY) 141 mmol/L (136-145); CREATININE 1.26 mg/dL (0.70-1.30); SODIUM 140 mmol/L (136-145); TOTAL PROTEIN 6.4 g/dL (6.4-8.2); eGFR NON BLACK RACES 58 (>60)
[2018-01-20] MEDS ORDERED: DUONEB 0.5 MG/3 MG NEB ONE (20:20)
[2018-01-20] MEDS ORDERED: PATIENT'S HOME MEDICATION (Cholecalciferol (Vitamin D3) [Vitamin D3] 1,000 UNIT) PO SCH (22:00)
[2018-01-20] MEDS ORDERED: SINEquan PO SCH (22:00)
[2018-01-20] MEDS ORDERED: LASIX IVP SCH (22:11)
[2018-01-20] MEDS ORDERED: PATIENT'S HOME MEDICATION (Budesonide-Formoterol 1 INH) IN PRN (22:11)
[2018-01-20] MEDS: NS 1000 ML 1,000 ML IV SCH (22:33)
[2018-01-20] MEDS: DILAUDID INJ IVP PRN (22:36)
[2018-01-20 23:37] LABS: BILIRUBIN,URINE NEGATIVE (NEGATIVE); BLOOD/HEMOGLOBIN,URINE NEGATIVE (NEGATIVE); GLUCOSE, URINE NEGATIVE (NEGATIVE); KETONES,URINE 2+ (NEGATIVE); LEUKOCYTE ESTERASE ,URINE NEGATIVE (NEGATIVE); NITRITES,URINE NEGATIVE (NEGATIVE); PROTEIN,URINE 1+ (NEGATIVE); UROBILINOGEN,URINE NORMAL (NORMAL)
[2018-01-20 23:46] LABS: APPEARANCE,URINE CLEAR (CLEAR); BACTERIA,URINE NEGATIVE /HPF (NEGATIVE); COLOR,URINE DARK YELLOW (YELLOW); RBC,URINE NONE SEEN /HPF (NONE SEEN); SQUAMOUS EPITHELIAL CELL,UR RARE /HPF (NEGATIVE)
[2018-01-21 00:54] VITALS: BMI 30.2
[2018-01-21] MEDS: DILAUDID INJ IVP PRN ×5 (06:03→22:40)
[2018-01-21 06:05] LABS: BASOPHILS # (AUTO) 0.1 X10^3/uL (0.0-0.1); BASOPHILS % (AUTO) 0.9 % (0.2-1.0); EOSINOPHILS # (AUTO) 0.2 x10^3/uL (0.0-0.2); EOSINOPHILS % (AUTO) 2.8 % (0.9-2.9); HEMATOCRIT 28.9 % (42.0-54.0); HEMOGLOBIN 9.9 g/dL (13.5-18.0); LYMPHOCYTES # (AUTO) 1.4 X10^3/uL (1.3-2.9); LYMPHOCYTES % (AUTO) 15.2 % (21.0-51.0); MEAN CORPUSCULAR HEMOGLOBIN 28.9 pg (27.0-34.0); MEAN CORPUSCULAR HGB CONC 34.2 g/dL (33.0-35.0); MEAN CORPUSCULAR VOLUME 84.3 fL (80.0-100.0); MEAN PLATELET VOLUME 9.4 fL (7.4-11.0); MONOCYTES # (AUTO) 0.9 x10^3/uL (0.3-0.8); MONOCYTES % (AUTO) 10.6 % (0.0-13.0); NEUTROPHILS # (AUTO) 6.3 x10^3/uL (2.2-4.8); NEUTROPHILS % (AUTO) 70.5 % (42.0-75.0); PLATELET COUNT 112 X10^3/uL (150.0-450.0); RED BLOOD COUNT 3.43 X10^6/uL (4.7-6.0); RED CELL DISTRIBUTION WIDTH 16.2 % (11.6-16.5); WHITE BLOOD COUNT 8.9 X10^3/uL (3.6-10.0)
[2018-01-21 06:15] LABS: ALANINE AMINOTRANSFERASE 22 Units/L (12-78); ALBUMIN 2.7 g/dL (3.4-5.0); ALKALINE PHOSPHATASE 59 Units/L (46-116); ASPARTATE AMINO TRANSFERASE 22 Units/L (15-37); BLOOD UREA NITROGEN 10 mg/dL (7-18); CALCIUM 8.1 mg/dL (8.5-10.1); CARBON DIOXIDE 29.3 mmol/L (21-32); CHLORIDE 104 mmol/L (98-107); COR CA(FOR HYPOALB) 9.1 mg/dL (8.5-10.1); COR NA(FOR HYPERGLY) 141 mmol/L (136-145); CREATININE 1.22 mg/dL (0.70-1.30); SODIUM 140 mmol/L (136-145); eGFR NON BLACK RACES > 60 (>60)
[2018-01-21] MEDS ORDERED: BIOTIN 5 MG PO SCH (09:00)
[2018-01-21] MEDS ORDERED: PATIENT'S HOME MEDICATION (Cyanocobalamin-Cobamamide [B12] 1 TAB) SL SCH (09:00)
[2018-01-21] MEDS ORDERED: CIPRO TAB 500 MG PO SCH (09:00)
[2018-01-21] MEDS ORDERED: CIPROFLOXACIN PO SCH (09:00)
[2018-01-21] MEDS ORDERED: LASIX IVP SCH (09:00)
[2018-01-21] MEDS ORDERED: SOLU-Medrol 40 MG VIAL IVP ONE (09:00)
[2018-01-21] MEDS: NS 1000 ML 1,000 ML IV SCH (09:18)
[2018-01-21] MEDS: LEVAQUIN PREMIX IV 500 MG 500 MG/100 ML BAG IV SCH (10:01)
[2018-01-21] MEDS: ELIQUIS PO SCH ×2 (10:16→20:13)
[2018-01-21] MEDS: VITAMIN D3 PO SCH (10:16)
[2018-01-21] MEDS: PATIENT'S HOME MEDICATION (Bupropion Hcl [Bupropion Hcl] 1 TAB) PO SCH (10:16)
[2018-01-21] MEDS ORDERED: TYLENOL SUPP 650 MG PR PRN (11:00)
[2018-01-21] MEDS ORDERED: MORPHINE PO PRN (12:24)
--- NOTE | 2018-01-21 12:31 | DR.H&P ---
H&P - History & Physical for Day of: H&P Date: 01/20/18 - Chief Complaint Chief Complaint: CONFUSION, WEAKNESS. ( CRYING OUT IN PAIN PER FAMILY) - History of Present Illness History of Present Illness: 82 [facility] ER ADMISSION AFTER PRESENTING WITH CO WEAKNESS , CONFUSION. FAMILY STATES PT COULD NOT WALK DUE TO PAIN, PT CANNOT LOCALIZE PAIN. FAMILY REPORTS HES CO PAIN ALL OVER. PT HAS HX OF CHRONIC RA, DDD OF SPINE AND OA. PT HAS PAIN MEDICATION AT HOME, REPORTS STOPPING PREDNISONE SEVERAL MONTHS AGO. PT HAS PMH OF COPD. CAD, CHF, OA, SPINAL DDD, ERICA, DM, RA. PT HAD CXR REVEALED ACUTE CHF EXACERBATION. FEBRILE. PT ADMITTED TO ICU FOR CONTINUED ASSESSMENT EVALUATION OF ACUTE ILLNESS, IV LASIX, CARDIAC MONITORING BP CONTROL, PAIN CONTROL. - Past Medical History Past Medical History: Coronary Artery Disease, Hypertension, Diabetes, Anxiety, COPD, PUD, GERD, Arthritis - Past Surgical History Surgical History: Angioplasty/Stents, Ortho Surgery, Thyroidectomy - Family History Family Medical History: Diabetes Mellitus, Heart Failure, Hypertension - Social History Does patient currently use any type of tobacco product: No Have you used tobacco products in the last 12 months: No Type of Tobacco Use: None Does any household member use tobacco: No Alcohol Use: None Drug Use: None - Medications Home Medications: codeine Allergy (Verified 08/15/17 22:55) iodine Allergy (Verified 08/15/17 22:55) CONTINUE taking the following medications alprazolam [Xanax] 1 tab PO DAILY PRN 01/20/18 [History] apixaban [Eliquis] 1 tab PO BID 01/20/18 [History] biotin 5 mg PO DAILY 01/20/18 [History] budesonide-formoterol [Symbicort] 2 inh INHALATION BID PRN 01/20/18 [History] bupropion HCl 1 tab PO DAILY 01/20/18 [History] cholecalciferol (vitamin D3) [Vitamin D3] 1,000 unit PO QDAY 01/20/18 [History] ciprofloxacin 1 tab PO BID 01/20/18 [History] cyanocobalamin-cobamamide [B12] 1 tab SUBLINGUAL DAILY 01/20/18 [History] doxazosin 1 tab PO DAILY 01/20/18 [History] doxepin 25 mg PO QHS 01/20/18 [History] esomeprazole magnesium 1 cap PO DAILY 01/20/18 [History] folic acid 0.8 mg PO QDAY 01/20/18 [History] furosemide [Lasix] 1 tab PO DAILY 01/20/18 [History] hydrocodone-acetaminophen [[place]] 1 tab PO PRN PRN 01/20/18 [History] ipratropium-albuterol [Combivent Respimat] 1 inh INHALATION PRN PRN 01/20/18 [ History] metformin 1 tab PO BID 01/20/18 [History] morphine 1 tab PO Q12W PRN 01/20/18 [History] multivitamin with minerals [Hair,Skin and Nails] 1 tab PO QDAY 01/20/18 [History ] potassium chloride 20 meq PO DAILY 01/20/18 [History] pregabalin [Lyrica] 150 mg PO BID 01/20/18 [History] pyridoxine (vitamin B6) [Vitamin B-6] 100 mg PO DAILY 01/20/18 [History] ranitidine HCl [Zantac] 300 mg PO QHS 01/20/18 [History] ropinirole 1 tab PO BID 01/20/18 [History] vitamin E 400 unit PO QDAY 01/20/18 [History] - Review of Systems Constitutional: Chills, Sweats, Weakness Eyes: No Symptoms Reported ENT: No Symptoms Reported Respiratory: Shortness of Breath, SOB with Excertion, Wheezing Cardiovascular: Edema Gastrointestinal: No Symptoms Reported Genitourinary: No Symptoms Reported Musculoskeletal: Shoulder Pain, Arm Pain, Back Pain, Leg Pain Skin: No Symptoms Reported Neurological: Weakness, Confusion - Physical Exam Vital Signs: Temperature 99.1 F Pulse Rate [Left Brachial] 89 Pulse Rate 90 Respiratory Rate 12 Blood Pressure [Left Arm] 104/70 Blood Pressure [Right Arm] 117/58 Blood Pressure 121/53 O2 Sat by Pulse Oximetry 99 Oriented: Person Eyes: Normal Ear: Normal Nose: Normal Throat: Dry Respiratory: Diminished Throughout Cardiovascular: Normal, Edema : Normal Auscultation: Bowel Sounds: Normal Palpation: Normal Tenderness: Normal Skin: Decreased Turgur Musculoskeletal: Back:Thoracic Psychiatric: Anxiety, Agitation Affect: Anxious Speech Pattern: Delayed (PT REPEATING "GOD HELP ME" "OH LORD HELP ME") - Assessment/Plan (1) Altered mental status Qualifiers: Altered mental status type: disorientation Qualified Code(s): R41.0 - Disorientation, unspecified Status: Acute Plan: ADMIT ICU, CONTINUOUS CARDIAC MONITORING. ABG, BLOOD, SPUTUM URINE CULTURES. IV LASIX, STRICT I & OS, SUPPLEMENTAL O2. IV LEVAQUIN, VERIFY HOME MEDS. VQ SCAN ORDERED Q AM. PT CURRENTLY ON ELIQUIS, WILL RESUME. RESP THERAPY , PAIN CONTROL (2) Diabetes Status: Acute (3) COPD (chronic obstructive pulmonary disease) Qualifiers: COPD type: COPD with acute exacerbation Qualified Code(s): J44.1 - Chronic obstructive pulmonary disease with (acute) exacerbation Status: Acute (4) GERD (gastroesophageal reflux disease) Status: Chronic (5) Cardiomyopathy Status: Chronic - Allergies Allergies/Adverse Reactions: Allergies Allergy/AdvReac Type Severity Reaction Status Date / Time codeine Allergy Verified 08/15/17 22:55 iodine Allergy Verified 08/15/17 22:55
--- NOTE | 2018-01-21 12:48 | PCM.PROG ---
Progress Note - Progress Note for Day of Date of Exam: 01/21/18 - Subjective Subjective: 82 [facility] ER ADMISSION LAST PM WITH "PAIN ALL OVER" DEHYDRATION, WEAKNESS, CHF EXACERBATION. PT CURRENTLY ON IV LASIX, WITH CONTINUED AIGTATION, AXIETY. PT CO PAIN ALL OVER, GIVEN IV NARCOTIC PAIN CONTROL CONTINUES TO MOAN. FEVER THIS AM, CULTURES COLLECTED, CURRENTLY ON IV LEVAQUIN, ADDED ROCEPHIN, ABG. CT HEAD AND VQ SCAN ORDERED FOR THIS AM. - Past Medical Family Social History Past Med/Fam/Surg Hx: No changes since H&P Allergies: Allergies codeine Allergy (Verified 08/15/17 22:55) iodine Allergy (Verified 08/15/17 22:55) - Review of Systems ROS: No change since H&P - Vital Signs and I&O's Vital Signs: Temperature 99.1 F Pulse Rate [Left Brachial] 89 Pulse Rate 90 Respiratory Rate 12 Blood Pressure [Left Arm] 104/70 Blood Pressure [Right Arm] 117/58 Blood Pressure 121/53 O2 Sat by Pulse Oximetry 99 Intake and Output: Intake & Output 01/19/18 01/20/18 01/21/18 01/22/18 11:59 11:59 11:59 11:59 Intake Total 510 / 510 Output Total 1300 / 1300 Balance -790 / -790 - Physical Exam Oriented: Person Eyes: Normal Ear: Normal Nose: Normal Throat: Dry Respiratory: Diminished Cardiovascular: Normal, Edema : Normal Auscultation: Bowel Sounds: Normal Tenderness: Normal Skin: Decreased Turgur Musculoskeletal: Back:Thoracic Psychiatric: Anxiety, Agitation Affect: Anxious Speech Pattern: Delayed (PT REPEATING "GOD HELP ME" "OH LORD HELP ME") - Laboratory and Diagnostics Result Diagrams: 01/21/18 05:37 01/21/18 05:37 Labs: Laboratory WBC 8.9 X10^3/uL (3.6-10.0) 01/21/18 05:37 RBC 3.43 X10^6/uL (4.7-6.0) L 01/21/18 05:37 Hgb 9.9 g/dL (13.5-18.0) L 01/21/18 05:37 Hct 28.9 % (42.0-54.0) L 01/21/18 05:37 MCV 84.3 fL (80.0-100.0) 01/21/18 05:37 MCH 28.9 pg (27.0-34.0) 01/21/18 05:37 MCHC 34.2 g/dL (33.0-35.0) 01/21/18 05:37 RDW 16.2 % (11.6-16.5) 01/21/18 05:37 Plt Count 112 X10^3/uL (150.0-450.0) L 01/21/18 05:37 MPV 9.4 fL (7.4-11.0) 01/21/18 05:37 Neut % (Auto) 70.5 % (42.0-75.0) 01/21/18 05:37 Lymph % (Auto) 15.2 % (21.0-51.0) L 01/21/18 05:37 [place] % (Auto) 10.6 % (0.0-13.0) 01/21/18 05:37 Eos % (Auto) 2.8 % (0.9-2.9) 01/21/18 05:37 Baso % (Auto) 0.9 % (0.2-1.0) 01/21/18 05:37 Neut # (Auto) 6.3 x10^3/uL (2.2-4.8) H 01/21/18 05:37 Lymph # (Auto) 1.4 X10^3/uL (1.3-2.9) 01/21/18 05:37 [place] # (Auto) 0.9 x10^3/uL (0.3-0.8) H 01/21/18 05:37 Eos # (Auto) 0.2 x10^3/uL (0.0-0.2) 01/21/18 05:37 Baso # (Auto) 0.1 X10^3/uL (0.0-0.1) 01/21/18 05:37 Absolute Nucleated RBC 0.0 /100WBC 01/21/18 05:37 D-Dimer 653 ng/mL (0-400) H* 01/20/18 17:29 Sodium 140 mmol/L (136-145) 01/21/18 05:37 Corrected Sodium 141 mmol/L (136-145) 01/21/18 05:37 Potassium 3.7 mmol/L (3.5-5.1) 01/21/18 05:37 Chloride 104 mmol/L (98-107) 01/21/18 05:37 Carbon Dioxide 29.3 mmol/L (21-32) 01/21/18 05:37 BUN 10 mg/dL (7-18) 01/21/18 05:37 Creatinine 1.22 mg/dL (0.70-1.30) 01/21/18 05:37 Est GFR (MDRD) Af Amer > 60 (>60) 01/21/18 05:37 Est GFR (MDRD) Non-Af > 60 (>60) 01/21/18 05:37 Glucose 128 mg/dL (65-99) H 01/21/18 05:37 POC Glucose (mg/dL) 146 mg/dL (65-99) H 01/21/18 11:09 Calcium 8.1 mg/dL (8.5-10.1) L 01/21/18 05:37 Corrected Calcium 9.1 mg/dL (8.5-10.1) 01/21/18 05:37 Total Bilirubin 0.80 mg/dL (0.2-1.0) 01/21/18 05:37 AST 22 Units/L (15-37) 01/21/18 05:37 ALT 22 Units/L (12-78) 01/21/18 05:37 Alkaline Phosphatase 59 Units/L (46-116) 01/21/18 05:37 C-Reactive Protein 52.00 mg/L (0-3.0) H 01/20/18 17:29 Total Protein 6.0 g/dL (6.4-8.2) L 01/21/18 05:37 Albumin 2.7 g/dL (3.4-5.0) L 01/21/18 05:37 Globulin 3.3 g/dL (2.5-4.5) 01/21/18 05:37 Albumin/Globulin Ratio 0.8 Ratio (1.1-2.1) L 01/21/18 05:37 Specimen Type Clean catch urine 01/20/18 23:18 Urine Color Dark yellow (YELLOW) 01/20/18 23:18 Urine Appearance Clear (CLEAR) 01/20/18 23:18 Urine pH 8.0 (5.0 - 8.0) 01/20/18 23:18 Ur Specific [place] 1.010 (1.000-1.030) 01/20/18 23:18 Urine Protein 1+ (NEGATIVE) 01/20/18 23:18 Urine Glucose (UA) Negative (NEGATIVE) 01/20/18 23:18 Urine Ketones 2+ (NEGATIVE) 01/20/18 23:18 Urine Occult Blood Negative (NEGATIVE) 01/20/18 23:18 Urine Nitrite Negative (NEGATIVE) 01/20/18 23:18 Urine Bilirubin Negative (NEGATIVE) 01/20/18 23:18 Urine Urobilinogen Normal (NORMAL) 01/20/18 23:18 Ur Leukocyte Esterase Negative (NEGATIVE) 01/20/18 23:18 Urine RBC None seen /HPF (NONE SEEN) 01/20/18 23:18 Urine WBC None seen /HPF (NONE SEEN) 01/20/18 23:18 Ur Squamous Epith Cells Rare /HPF (NEGATIVE) 01/20/18 23:18 Urine Bacteria Negative /HPF (NEGATIVE) 01/20/18 23:18 Ur Culture Indicated? No/not indicated 01/20/18 23:18 - Plan (1) Altered mental status Status: Acute Qualifiers: Altered mental status type: disorientation Qualified Code(s): R41.0 - Disorientation, unspecified Plan: CONTINUOUS CARDIAC MONITORING. ABG, BLOOD, SPUTUM URINE CULTURES PENDING. IV LASIX, STRICT I & OS, SUPPLEMENTAL O2. IV LEVAQUIN AND IV ROCEPHIN , IV SOLU MEDROL. VERIFY HOME MEDS. VQ SCAN ORDERED Q AM. PT CURRENTLY ON ELIQUIS, WILL RESUME. RESP THERAPY, PAIN CONTROL (2) Diabetes Status: Acute (3) COPD (chronic obstructive pulmonary disease) Status: Acute Qualifiers: COPD type: COPD with acute exacerbation Qualified Code(s): J44.1 - Chronic obstructive pulmonary disease with (acute) exacerbation (4) GERD (gastroesophageal reflux disease) Status: Chronic (5) Cardiomyopathy Status: Chronic
[2018-01-21] MEDS: ZANTAC PO SCH ×2 (13:05→20:13)
[2018-01-21 13:12] LABS: CKMB % 1.6 % (<4); CREATINE KINASE 62 Units/L (39-308); CREATINE KINASE MB < 1.0 ng/mL (0-4.0); TROPONIN I < 0.02 ng/mL (0-1.5)
[2018-01-21 13:25] LABS: IRON 20 ug/dL (50-175)
[2018-01-21] MEDS: ROCEPHIN 1 GRAM IV PREMIX 1 G/50 ML IV.SOLN. IV SCH ×2 (13:26→14:15)
[2018-01-21] MEDS: ROCEPHIN VIAL 1 GRAM 1 G in NS 100 ML IV + SPIKE MINIBAG* 100 ML IV SCH (13:36)
[2018-01-21 13:52] LABS: ABG BASE EXCESS 8.5 mmol/L (-2.0-2.0)
[2018-01-21 13:54] LABS: ABG ALLEN TEST POSITIVE; ABG HCO3 32.8 mmol/L (22-26)
--- NOTE | 2018-01-21 15:04 | CT ---
STUDY: CT HEAD WITHOUT CONTRAST HISTORY: Altered mental status. COMPARISON: September 29, 2017, January 13, 2017. TECHNIQUE: Multiple axial images of the head were obtained from the skull base to the vertex without administration of IV contrast. Automated exposure control (AEC) was utilized to adjust the MA and/or kV. Findings: The sulci and cisterns are prominent consistent with diffuse volume loss. There is no evide nce of decompensated hydrocephalus. There are scattered foci of low attenuation in the periventricula r and subcortical white matter of both hemispheres. This is a nonspecific finding which likely repres ents microangiopathic change in a patient of this age. There are low-attenuation extra-axial fluid collections overlying both frontal convexities. These fin dings are not significantly changed since the prior exams. There is no evidence of acute territorial infarction, hemorrhage, mass, mass effect or midline shift. There is no evidence of acute osseous ab normality or significant soft tissue swelling. IMPRESSION: 1. No evidence of acute intracranial abnormality. 2. Nonspecific white matter change and volume loss as described. 3. No significant change in extra-axial fluid collections overlying the frontal convexities. Reported By:
--- NOTE | 2018-01-21 15:28 | NM ---
Indication: Shortness of breath Exam: V/Q lung scan. Technique: The patient was ventilated with 30 mCi of technetium DTPA and spot ventilation images were performed. The patient was injected with 5.6 mCi of technetium 99 M maa IV and spot perfusion imagin g was performed. Comparison: Chest x-ray 01/20/2018. Findings: There is heterogeneous ventilation throughout both lungs with central areas of increased up take . No large peripheral ventilation defects can be seen. There is fairly homogeneous perfusion thr oughout both lungs with no obvious focal areas of increased or decreased uptake. Impression: COPD with a low probability for a pulmonary embolus. Reported By:
--- NOTE | 2018-01-21 16:09 | RAD ---
HISTORY: Abdominal Pain Study: Frontal view of the chest, flat and upright views of the abdomen Comparison: None. Findings: Cardiomediastinal silhouette is normal in size. No focal consolidations, pleural effusions or pneumot horax. Osseous structures are without acute abnormality. Flat and upright views of the abdomen demonstrates a normal bowel gas pattern. No free air. No abnor mal calcifications or abnormal soft tissue shadows. No acute bony abnormalities. IMPRESSION: 1. No acute cardiopulmonary disease. 2. No evidence for acute abdominal pathology. Reported By:
[2018-01-21] MEDS: M.S. CONTIN 30 MG EXTENDED RELEASE PO SCH ×2 (16:10→20:12)
[2018-01-21] MEDS: XANAX PO PRN (19:20)
[2018-01-21] MEDS: REQUIP PO SCH (20:12)
[2018-01-21] MEDS: LYRICA CAP 150 MG PO SCH (20:13)
--- NOTE | 2018-01-21 22:24 | RAD ---
HISTORY: Right knee pain with no known injury Study: Two views the right knee Comparison: None Findings: Images demonstrate medial and patellofemoral compartment space narrowing. No evidence of acute displa linda fracture or dislocation is identified. Patellar spurring is noted. A small moderate effusion is d emonstrated as well. IMPRESSION: 1. Degenerative changes and small moderate effusion as noted above. Reported By:
--- NOTE | 2018-01-21 22:32 | RAD ---
HISTORY: Chronic low back pain Study: Two views of the lumbar spine Comparison: None Findings: The lumbar vertebral body heights are relatively maintained. No evidence of acute displaced fracture or significant subluxation is identified. Degenerate facet changes are seen throughout the lumbar spi ne. Multilevel intervertebral disc space narrowing and osteophytosis are also noted. Surgical clips p roject over the left paola abdomen. IMPRESSION: 1. Multilevel degenerative changes as noted above. Reported By:
--- NOTE | 2018-01-21 22:38 | RAD ---
Right hip, two views Indication: Right hip pain. No injury. Comparison: 11/05/2010 Findings: There is minimal degenerative change of the right hip. No acute cortical disruption or malalignment i s identified. No aggressive osseous lesion observed. There is marked lower lumbar spondylosis. Impression: Minimal right hip DJD. Marked lower lumbar spondylosis. Reported By:
[2018-01-22] MEDS: NS 1000 ML 1,000 ML IV SCH ×4 (05:00→20:46)
[2018-01-22 05:32] LABS: BASOPHILS % (AUTO) 0.2 % (0.2-1.0); EOSINOPHILS % (AUTO) 0.1 % (0.9-2.9); HEMATOCRIT 28.6 % (42.0-54.0); HEMOGLOBIN 9.6 g/dL (13.5-18.0); LYMPHOCYTES # (AUTO) 0.8 X10^3/uL (1.3-2.9); LYMPHOCYTES % (AUTO) 6.2 % (21.0-51.0); MEAN CORPUSCULAR HEMOGLOBIN 28.3 pg (27.0-34.0); MEAN CORPUSCULAR HGB CONC 33.8 g/dL (33.0-35.0); MEAN CORPUSCULAR VOLUME 83.8 fL (80.0-100.0); MEAN PLATELET VOLUME 9.2 fL (7.4-11.0); MONOCYTES # (AUTO) 0.6 x10^3/uL (0.3-0.8); MONOCYTES % (AUTO) 5.1 % (0.0-13.0); NEUTROPHILS # (AUTO) 11.1 x10^3/uL (2.2-4.8); NEUTROPHILS % (AUTO) 88.4 % (42.0-75.0); PLATELET COUNT 109 X10^3/uL (150.0-450.0); RED BLOOD COUNT 3.41 X10^6/uL (4.7-6.0); RED CELL DISTRIBUTION WIDTH 16.1 % (11.6-16.5); WHITE BLOOD COUNT 12.6 X10^3/uL (3.6-10.0)
[2018-01-22 05:44] LABS: ALANINE AMINOTRANSFERASE 19 Units/L (12-78); ALBUMIN 2.6 g/dL (3.4-5.0); ALKALINE PHOSPHATASE 55 Units/L (46-116); ASPARTATE AMINO TRANSFERASE 16 Units/L (15-37); BLOOD UREA NITROGEN 16 mg/dL (7-18); CALCIUM 8.3 mg/dL (8.5-10.1); CARBON DIOXIDE 30.3 mmol/L (21-32); CHLORIDE 104 mmol/L (98-107); COR CA(FOR HYPOALB) 9.4 mg/dL (8.5-10.1); COR NA(FOR HYPERGLY) 142 mmol/L (136-145); CREATININE 1.11 mg/dL (0.70-1.30); SODIUM 141 mmol/L (136-145); TOTAL PROTEIN 6.3 g/dL (6.4-8.2); eGFR NON BLACK RACES > 60 (>60)
[2018-01-22] MEDS: DILAUDID INJ IVP PRN ×3 (07:53→22:50)
[2018-01-22] MEDS: ROCEPHIN VIAL 1 GRAM 1 G in NS 100 ML IV + SPIKE MINIBAG* 100 ML IV SCH (08:43)
[2018-01-22] MEDS: LEVAQUIN PREMIX IV 500 MG 500 MG/100 ML BAG IV SCH (08:43)
[2018-01-22] MEDS ORDERED: LASIX PO SCH (09:00)
[2018-01-22] MEDS: PATIENT'S HOME MEDICATION (Bupropion Hcl [Bupropion Hcl] 1 TAB) PO SCH (09:57)
[2018-01-22] MEDS: REQUIP PO SCH ×2 (09:58→20:42)
[2018-01-22] MEDS: ELIQUIS PO SCH ×2 (09:59→20:40)
[2018-01-22] MEDS: MICRO K EXTEN CAP 10 MEQ PO SCH (09:59)
[2018-01-22] MEDS: NexIUM PO SCH (09:59)
[2018-01-22] MEDS: M.S. CONTIN 30 MG EXTENDED RELEASE PO SCH ×2 (10:00→20:41)
[2018-01-22] MEDS: LYRICA CAP 150 MG PO SCH ×2 (10:00→20:40)
[2018-01-22] MEDS: VITAMIN D3 PO SCH (10:00)
[2018-01-22] MEDS: PROVENTIL NEB TX 0.083% 2.5MG/ 3ML NEB SCH ×4 (10:40→20:59)
[2018-01-22] MEDS: PULMICORT NEB TX 0.5 MG NEB SCH ×4 (10:41→20:59)
--- NOTE | 2018-01-22 17:45 | PCM.PROG ---
Progress Note - Progress Note for Day of Date of Exam: 01/22/18 - Subjective Subjective: 82 WM ER ADMISSION LAST PM WITH "PAIN ALL OVER" DEHYDRATION, WEAKNESS, CHF EXACERBATION. PT CURRENTLY ON IV LASIX, WITH MURPHY CATH STRICT I & OS. PT MORE AWAKE AND ALERT THIS AM, SITTING ON SIDE OF THE BED. PT STATES HE FEELS MUCH BETTER THIS AM. CULTURES COLLECTED, CURRENTLY ON IV LEVAQUIN, ROCEPHIN,. CT HEAD AND VQ SCAN WITHOUT ACUTE FINDINGS. - Past Medical Family Social History Past Med/Fam/Surg Hx: No changes since H&P Allergies: Allergies codeine Allergy (Verified 08/15/17 22:55) iodine Allergy (Verified 08/15/17 22:55) - Review of Systems ROS: No change since H&P - Vital Signs and I&O's Vital Signs: Temperature 99.2 F Pulse Rate [Left Brachial] 78 Pulse Rate 80 Respiratory Rate 20 Blood Pressure [Left Arm] 141/64 Blood Pressure [Right Arm] 117/58 Blood Pressure 121/53 O2 Sat by Pulse Oximetry 100 Intake and Output: Intake & Output 01/20/18 01/21/18 01/22/18 01/23/18 11:59 11:59 11:59 11:59 Intake Total 510 / 510 1786 / 1786 1244 / 1244 Output Total 1300 / 1300 2125 / 2125 1000 / 1000 Balance -790 / -790 -339 / -339 244 / 244 - Physical Exam Oriented: Person Eyes: Normal Ear: Normal Nose: Normal Throat: Dry Respiratory: Diminished Cardiovascular: Normal, Edema : Normal Auscultation: Bowel Sounds: Normal Tenderness: Normal Skin: Decreased [place] Musculoskeletal: Back:Thoracic Psychiatric: Anxiety, Agitation Affect: Anxious Speech Pattern: Clear, Appropriate - Laboratory and Diagnostics Result Diagrams: 01/22/18 05:15 01/22/18 05:15 Labs: 01/21/18 09:33 Urine,Catheterized Urine Culture - Preliminary Laboratory WBC 12.6 X10^3/uL (3.6-10.0) H 01/22/18 05:15 RBC 3.41 X10^6/uL (4.7-6.0) L 01/22/18 05:15 Hgb 9.6 g/dL (13.5-18.0) L 01/22/18 05:15 Hct 28.6 % (42.0-54.0) L 01/22/18 05:15 MCV 83.8 fL (80.0-100.0) 01/22/18 05:15 MCH 28.3 pg (27.0-34.0) 01/22/18 05:15 MCHC 33.8 g/dL (33.0-35.0) 01/22/18 05:15 RDW 16.1 % (11.6-16.5) 01/22/18 05:15 Plt Count 109 X10^3/uL (150.0-450.0) L 01/22/18 05:15 MPV 9.2 fL (7.4-11.0) 01/22/18 05:15 Neut % (Auto) 88.4 % (42.0-75.0) H 01/22/18 05:15 Lymph % (Auto) 6.2 % (21.0-51.0) L 01/22/18 05:15 [place] % (Auto) 5.1 % (0.0-13.0) 01/22/18 05:15 Eos % (Auto) 0.1 % (0.9-2.9) L 01/22/18 05:15 Baso % (Auto) 0.2 % (0.2-1.0) 01/22/18 05:15 Neut # (Auto) 11.1 x10^3/uL (2.2-4.8) H 01/22/18 05:15 Lymph # (Auto) 0.8 X10^3/uL (1.3-2.9) L 01/22/18 05:15 [place] # (Auto) 0.6 x10^3/uL (0.3-0.8) 01/22/18 05:15 Eos # (Auto) 0.0 x10^3/uL (0.0-0.2) 01/22/18 05:15 Baso # (Auto) 0.0 X10^3/uL (0.0-0.1) 01/22/18 05:15 Absolute Nucleated RBC 0.0 /100WBC 01/22/18 05:15 D-Dimer 653 ng/mL (0-400) H* 01/20/18 17:29 Sample Site Rr 01/21/18 12:40 ABG pH 7.490 (7.35-7.45) H 01/21/18 12:40 ABG pCO2 43.0 mmHg (35.0-45.0) 01/21/18 12:40 ABG pO2 75.0 mmHg (80.0-100.0) L 01/21/18 12:40 ABG HCO3 32.8 mmol/L (22-26) H* 01/21/18 12:40 ABG O2 Saturation 96.0 % (90-100) 01/21/18 12:40 ABG Base Excess 8.5 mmol/L (-2.0-2.0) H 01/21/18 12:40 Romain Test Positive 01/21/18 12:40 A-a Gradient 71.0 mmHg 01/21/18 12:40 FiO2 28.000 01/21/18 12:40 Blood Gas Comments Marianne well ej 01/21/18 12:40 Sodium 141 mmol/L (136-145) 01/22/18 05:15 Corrected Sodium 142 mmol/L (136-145) 01/22/18 05:15 Potassium 4.5 mmol/L (3.5-5.1) 01/22/18 05:15 Chloride 104 mmol/L (98-107) 01/22/18 05:15 Carbon Dioxide 30.3 mmol/L (21-32) 01/22/18 05:15 BUN 16 mg/dL (7-18) 01/22/18 05:15 Creatinine 1.11 mg/dL (0.70-1.30) 01/22/18 05:15 Est GFR (MDRD) Af Amer > 60 (>60) 01/22/18 05:15 Est GFR (MDRD) Non-Af > 60 (>60) 01/22/18 05:15 Glucose 155 mg/dL (65-99) H 01/22/18 05:15 POC Glucose (mg/dL) 167 mg/dL (65-99) H 01/22/18 15:37 Calcium 8.3 mg/dL (8.5-10.1) L 01/22/18 05:15 Corrected Calcium 9.4 mg/dL (8.5-10.1) 01/22/18 05:15 Iron 20 ug/dL (50-175) L 01/21/18 12:35 Transferrin 198 mg/dL (202-364) L 01/21/18 12:35 Ferritin 91 ng/mL (26-388) 01/21/18 12:35 Total Bilirubin 0.40 mg/dL (0.2-1.0) 01/22/18 05:15 AST 16 Units/L (15-37) 01/22/18 05:15 ALT 19 Units/L (12-78) 01/22/18 05:15 Alkaline Phosphatase 55 Units/L (46-116) 01/22/18 05:15 Creatine Kinase 62 Units/L (39-308) 01/21/18 12:35 CK-MB (CK-2) < 1.0 ng/mL (0-4.0) 01/21/18 12:35 CK/CKMB % Calc 1.6 % (<4) 01/21/18 12:35 Troponin I < 0.02 ng/mL (0-1.5) 01/21/18 12:35 C-Reactive Protein 52.00 mg/L (0-3.0) H 01/20/18 17:29 Total Protein 6.3 g/dL (6.4-8.2) L 01/22/18 05:15 Albumin 2.6 g/dL (3.4-5.0) L 01/22/18 05:15 Globulin 3.7 g/dL (2.5-4.5) 01/22/18 05:15 Albumin/Globulin Ratio 0.7 Ratio (1.1-2.1) L 01/22/18 05:15 Vitamin B12 1783 pg/mL (193-986) H 01/21/18 12:35 Folate > 20.0 ng/mL (>8.6) 01/21/18 12:35 Specimen Type Clean catch urine 01/20/18 23:18 Urine Color Dark yellow (YELLOW) 01/20/18 23:18 Urine Appearance Clear (CLEAR) 01/20/18 23:18 Urine pH 8.0 (5.0 - 8.0) 01/20/18 23:18 Ur Specific [place] 1.010 (1.000-1.030) 01/20/18 23:18 Urine Protein 1+ (NEGATIVE) 01/20/18 23:18 Urine Glucose (UA) Negative (NEGATIVE) 01/20/18 23:18 Urine Ketones 2+ (NEGATIVE) 01/20/18 23:18 Urine Occult Blood Negative (NEGATIVE) 01/20/18 23:18 Urine Nitrite Negative (NEGATIVE) 01/20/18 23:18 Urine Bilirubin Negative (NEGATIVE) 01/20/18 23:18 Urine Urobilinogen Normal (NORMAL) 01/20/18 23:18 Ur Leukocyte Esterase Negative (NEGATIVE) 01/20/18 23:18 Urine RBC None seen /HPF (NONE SEEN) 01/20/18 23:18 Urine WBC None seen /HPF (NONE SEEN) 01/20/18 23:18 Ur Squamous Epith Cells Rare /HPF (NEGATIVE) 01/20/18 23:18 Urine Bacteria Negative /HPF (NEGATIVE) 01/20/18 23:18 Ur Culture Indicated? No/not indicated 01/20/18 23:18 - Plan (1) Altered mental status Status: Acute Qualifiers: Altered mental status type: disorientation Qualified Code(s): R41.0 - Disorientation, unspecified Plan: CONTINUOUS CARDIAC MONITORING. ABG, BLOOD, SPUTUM URINE CULTURES PENDING. IV LASIX, STRICT I & OS, SUPPLEMENTAL O2. IV LEVAQUIN AND IV ROCEPHIN , IV SOLU MEDROL. VERIFY HOME MEDS. VQ SCAN ORDERED Q AM. PT CURRENTLY ON ELIQUIS,. RESP THERAPY, PAIN CONTROL (2) Diabetes Status: Acute (3) COPD (chronic obstructive pulmonary disease) Status: Acute Qualifiers: COPD type: COPD with acute exacerbation Qualified Code(s): J44.1 - Chronic obstructive pulmonary disease with (acute) exacerbation (4) GERD (gastroesophageal reflux disease) Status: Chronic (5) Cardiomyopathy Status: Chronic
[2018-01-22] MEDS: ZANTAC PO SCH (20:42)
[2018-01-22] MEDS: XANAX PO PRN (23:30)
[2018-01-23 06:46] LABS: BASOPHILS % (AUTO) 0.3 % (0.2-1.0); EOSINOPHILS # (AUTO) 0.2 x10^3/uL (0.0-0.2); EOSINOPHILS % (AUTO) 2.5 % (0.9-2.9); HEMATOCRIT 27.8 % (42.0-54.0); HEMOGLOBIN 9.4 g/dL (13.5-18.0); LYMPHOCYTES # (AUTO) 2.1 X10^3/uL (1.3-2.9); LYMPHOCYTES % (AUTO) 21.4 % (21.0-51.0); MEAN CORPUSCULAR HEMOGLOBIN 28.7 pg (27.0-34.0); MEAN CORPUSCULAR HGB CONC 33.7 g/dL (33.0-35.0); MEAN CORPUSCULAR VOLUME 85.2 fL (80.0-100.0); MEAN PLATELET VOLUME 9.7 fL (7.4-11.0); MONOCYTES # (AUTO) 0.6 x10^3/uL (0.3-0.8); MONOCYTES % (AUTO) 6.1 % (0.0-13.0); NEUTROPHILS # (AUTO) 6.8 x10^3/uL (2.2-4.8); NEUTROPHILS % (AUTO) 69.7 % (42.0-75.0); PLATELET COUNT 106 X10^3/uL (150.0-450.0); RED BLOOD COUNT 3.27 X10^6/uL (4.7-6.0); RED CELL DISTRIBUTION WIDTH 16.4 % (11.6-16.5); WHITE BLOOD COUNT 9.8 X10^3/uL (3.6-10.0)
[2018-01-23 07:08] LABS: ALANINE AMINOTRANSFERASE 27 Units/L (12-78); ALBUMIN 2.6 g/dL (3.4-5.0); ALKALINE PHOSPHATASE 47 Units/L (46-116); ASPARTATE AMINO TRANSFERASE 33 Units/L (15-37); BLOOD UREA NITROGEN 26 mg/dL (7-18); CALCIUM 8.3 mg/dL (8.5-10.1); CARBON DIOXIDE 31.5 mmol/L (21-32); CHLORIDE 107 mmol/L (98-107); COR CA(FOR HYPOALB) 9.4 mg/dL (8.5-10.1); CREATININE 1.17 mg/dL (0.70-1.30); SODIUM 144 mmol/L (136-145); eGFR NON BLACK RACES > 60 (>60)
[2018-01-23] MEDS ORDERED: MILK OF MAGNESIA ONE (08:38)
[2018-01-23] MEDS: ELIQUIS PO SCH ×2 (08:53→20:40)
[2018-01-23] MEDS: LASIX IVP SCH (08:53)
[2018-01-23] MEDS: LEVAQUIN PREMIX IV 500 MG 500 MG/100 ML BAG IV SCH (08:53)
[2018-01-23] MEDS: LYRICA CAP 150 MG PO SCH ×2 (08:59→20:40)
[2018-01-23] MEDS: PATIENT'S HOME MEDICATION (Bupropion Hcl [Bupropion Hcl] 1 TAB) PO SCH (08:59)
[2018-01-23] MEDS: VITAMIN D3 PO SCH (08:59)
[2018-01-23] MEDS: ROCEPHIN VIAL 1 GRAM 1 G in NS 100 ML IV + SPIKE MINIBAG* 100 ML IV SCH (08:59)
[2018-01-23] MEDS: MICRO K EXTEN CAP 10 MEQ PO SCH (09:00)
[2018-01-23] MEDS: NS 1000 ML 1,000 ML IV SCH (09:00)
[2018-01-23] MEDS: NexIUM PO SCH (09:00)
[2018-01-23] MEDS: M.S. CONTIN 30 MG EXTENDED RELEASE PO SCH ×2 (09:00→20:39)
[2018-01-23] MEDS: REQUIP PO SCH ×2 (09:00→20:39)
[2018-01-23] MEDS: PROVENTIL NEB TX 0.083% 2.5MG/ 3ML NEB SCH ×2 (09:55→20:48)
[2018-01-23] MEDS: PULMICORT NEB TX 0.5 MG NEB SCH ×2 (09:56→20:48)
[2018-01-23] MEDS: DILAUDID INJ IVP PRN ×2 (10:27→23:13)
--- NOTE | 2018-01-23 11:12 | PCM.PROG ---
Progress Note - Progress Note for Day of Date of Exam: 01/23/18 - Subjective Subjective: 82 WM ER ADMISSION LAST PM WITH "PAIN ALL OVER" DEHYDRATION, WEAKNESS, CHF EXACERBATION. PT CURRENTLY ON IV LASIX, WITH MURPHY CATH STRICT I & OS. PT AWAKE AND ALERT THIS AM, SAYS HE FEELS MUCH BETTER THAN ADMISSION WITH CO CONTINUED RIGHT KNEE PAIN, WORSE TODAY, RED, INCREASED WARMTH AND LOCALIZED EFFUSION. ELEVATED URIC ACID LEVEL. PT DOES HAVE HX OF RA. SOLU MEDROL AND COLCHICINE ORDERED, PAIN CONTROL, MONITOR. CULTURES COLLECTED ON ADMISSION, CURRENTLY ON IV LEVAQUIN, ROCEPHIN. CT HEAD AND VQ SCAN WITHOUT ACUTE FINDINGS. - Past Medical Family Social History Past Med/Fam/Surg Hx: No changes since H&P Allergies: Allergies codeine Allergy (Verified 08/15/17 22:55) iodine Allergy (Verified 08/15/17 22:55) - Review of Systems ROS: No change since H&P - Vital Signs and I&O's Vital Signs: Temperature 97.1 F Pulse Rate [Left Brachial] 70 Pulse Rate 80 Respiratory Rate 18 Blood Pressure [Left Arm] 186/72 Blood Pressure [Right Arm] 117/58 Blood Pressure 121/53 O2 Sat by Pulse Oximetry 95 Intake and Output: Intake & Output 01/20/18 01/21/18 01/22/18 01/23/18 11:59 11:59 11:59 11:59 Intake Total 510 / 510 1786 / 1786 2715 / 2715 Output Total 1300 / 1300 2125 / 2125 1001 / 1001 Balance -790 / -790 -339 / -339 1714 / 1714 - Physical Exam Oriented: Person Eyes: Normal Ear: Normal Nose: Normal Throat: Dry Respiratory: Diminished Cardiovascular: Normal, Edema : Normal Auscultation: Bowel Sounds: Normal Tenderness: Normal Skin: Red (RIGHT KNEE), Tender Musculoskeletal: Right, Knee, Back:Thoracic, Swelling, Tender Psychiatric: Anxiety, Agitation Affect: Anxious Speech Pattern: Clear, Appropriate - Laboratory and Diagnostics Result Diagrams: 01/23/18 06:15 01/23/18 06:15 Labs: 01/21/18 09:33 Urine,Catheterized Urine Culture - Final 01/21/18 09:31 Blood Blood Culture - Preliminary 01/21/18 09:15 Blood Blood Culture - Preliminary Laboratory WBC 9.8 X10^3/uL (3.6-10.0) 01/23/18 06:15 RBC 3.27 X10^6/uL (4.7-6.0) L 01/23/18 06:15 Hgb 9.4 g/dL (13.5-18.0) L 01/23/18 06:15 Hct 27.8 % (42.0-54.0) L 01/23/18 06:15 MCV 85.2 fL (80.0-100.0) 01/23/18 06:15 MCH 28.7 pg (27.0-34.0) 01/23/18 06:15 MCHC 33.7 g/dL (33.0-35.0) 01/23/18 06:15 RDW 16.4 % (11.6-16.5) 01/23/18 06:15 Plt Count 106 X10^3/uL (150.0-450.0) L 01/23/18 06:15 MPV 9.7 fL (7.4-11.0) 01/23/18 06:15 Neut % (Auto) 69.7 % (42.0-75.0) 01/23/18 06:15 Lymph % (Auto) 21.4 % (21.0-51.0) 01/23/18 06:15 [place] % (Auto) 6.1 % (0.0-13.0) 01/23/18 06:15 Eos % (Auto) 2.5 % (0.9-2.9) 01/23/18 06:15 Baso % (Auto) 0.3 % (0.2-1.0) 01/23/18 06:15 Neut # (Auto) 6.8 x10^3/uL (2.2-4.8) H 01/23/18 06:15 Lymph # (Auto) 2.1 X10^3/uL (1.3-2.9) 01/23/18 06:15 [place] # (Auto) 0.6 x10^3/uL (0.3-0.8) 01/23/18 06:15 Eos # (Auto) 0.2 x10^3/uL (0.0-0.2) 01/23/18 06:15 Baso # (Auto) 0.0 X10^3/uL (0.0-0.1) 01/23/18 06:15 Absolute Nucleated RBC 0.0 /100WBC 01/23/18 06:15 D-Dimer 653 ng/mL (0-400) H* 01/20/18 17:29 Sample Site Rr 01/21/18 12:40 ABG pH 7.490 (7.35-7.45) H 01/21/18 12:40 ABG pCO2 43.0 mmHg (35.0-45.0) 01/21/18 12:40 ABG pO2 75.0 mmHg (80.0-100.0) L 01/21/18 12:40 ABG HCO3 32.8 mmol/L (22-26) H* 01/21/18 12:40 ABG O2 Saturation 96.0 % (90-100) 01/21/18 12:40 ABG Base Excess 8.5 mmol/L (-2.0-2.0) H 01/21/18 12:40 [place] Test Positive 01/21/18 12:40 A-a Gradient 71.0 mmHg 01/21/18 12:40 FiO2 28.000 01/21/18 12:40 Blood Gas Comments Marianne well ej 01/21/18 12:40 Sodium 144 mmol/L (136-145) 01/23/18 06:15 Corrected Sodium TNP 01/23/18 06:15 Potassium 4.2 mmol/L (3.5-5.1) 01/23/18 06:15 Chloride 107 mmol/L (98-107) 01/23/18 06:15 Carbon Dioxide 31.5 mmol/L (21-32) 01/23/18 06:15 BUN 26 mg/dL (7-18) H 01/23/18 06:15 Creatinine 1.17 mg/dL (0.70-1.30) 01/23/18 06:15 Est GFR (MDRD) Af Amer > 60 (>60) 01/23/18 06:15 Est GFR (MDRD) Non-Af > 60 (>60) 01/23/18 06:15 Glucose 107 mg/dL (65-99) H 01/23/18 06:15 POC Glucose (mg/dL) 104 mg/dL (65-99) H 01/23/18 06:12 Uric Acid 8.8 mg/dL (3.5-7.2) H 01/23/18 06:15 Calcium 8.3 mg/dL (8.5-10.1) L 01/23/18 06:15 Corrected Calcium 9.4 mg/dL (8.5-10.1) 01/23/18 06:15 Iron 20 ug/dL (50-175) L 01/21/18 12:35 Transferrin 198 mg/dL (202-364) L 01/21/18 12:35 Ferritin 91 ng/mL (26-388) 01/21/18 12:35 Total Bilirubin 0.20 mg/dL (0.2-1.0) 01/23/18 06:15 AST 33 Units/L (15-37) 01/23/18 06:15 ALT 27 Units/L (12-78) 01/23/18 06:15 Alkaline Phosphatase 47 Units/L (46-116) 01/23/18 06:15 Creatine Kinase 62 Units/L (39-308) 01/21/18 12:35 CK-MB (CK-2) < 1.0 ng/mL (0-4.0) 01/21/18 12:35 CK/CKMB % Calc 1.6 % (<4) 01/21/18 12:35 Troponin I < 0.02 ng/mL (0-1.5) 01/21/18 12:35 C-Reactive Protein 52.00 mg/L (0-3.0) H 01/20/18 17:29 Total Protein 6.0 g/dL (6.4-8.2) L 01/23/18 06:15 Albumin 2.6 g/dL (3.4-5.0) L 01/23/18 06:15 Globulin 3.4 g/dL (2.5-4.5) 01/23/18 06:15 Albumin/Globulin Ratio 0.8 Ratio (1.1-2.1) L 01/23/18 06:15 Vitamin B12 1783 pg/mL (193-986) H 01/21/18 12:35 Folate > 20.0 ng/mL (>8.6) 01/21/18 12:35 Specimen Type Clean catch urine 01/20/18 23:18 Urine Color Dark yellow (YELLOW) 01/20/18 23:18 Urine Appearance Clear (CLEAR) 01/20/18 23:18 Urine pH 8.0 (5.0 - 8.0) 01/20/18 23:18 Ur Specific [place] 1.010 (1.000-1.030) 01/20/18 23:18 Urine Protein 1+ (NEGATIVE) 01/20/18 23:18 Urine Glucose (UA) Negative (NEGATIVE) 01/20/18 23:18 Urine Ketones 2+ (NEGATIVE) 01/20/18 23:18 Urine Occult Blood Negative (NEGATIVE) 01/20/18 23:18 Urine Nitrite Negative (NEGATIVE) 01/20/18 23:18 Urine Bilirubin Negative (NEGATIVE) 01/20/18 23:18 Urine Urobilinogen Normal (NORMAL) 01/20/18 23:18 Ur Leukocyte Esterase Negative (NEGATIVE) 01/20/18 23:18 Urine RBC None seen /HPF (NONE SEEN) 01/20/18 23:18 Urine WBC None seen /HPF (NONE SEEN) 01/20/18 23:18 Ur Squamous Epith Cells Rare /HPF (NEGATIVE) 01/20/18 23:18 Urine Bacteria Negative /HPF (NEGATIVE) 01/20/18 23:18 Ur Culture Indicated? No/not indicated 01/20/18 23:18 - Plan (1) Altered mental status Status: Acute Qualifiers: Altered mental status type: disorientation Qualified Code(s): R41.0 - Disorientation, unspecified Plan: IMPROVED MENTAL STATUS, AWAKE AND ALERT. CONTINUOUS CARDIAC MONITORING. ABG, BLOOD, SPUTUM URINE CULTURES COLLECTED ON ADMISSION. IV LASIX, STRICT I & OS, SUPPLEMENTAL O2. IV LEVAQUIN AND IV ROCEPHIN, IV SOLU MEDROL. VQ SCAN ORDERED W/O PE. PT CURRENTLY ON ELIQUIS,. RESP THERAPY, PAIN CONTROL (2) Diabetes Status: Acute (3) COPD (chronic obstructive pulmonary disease) Status: Acute Qualifiers: COPD type: COPD with acute exacerbation Qualified Code(s): J44.1 - Chronic obstructive pulmonary disease with (acute) exacerbation (4) GERD (gastroesophageal reflux disease) Status: Chronic (5) Cardiomyopathy Status: Chronic (6) CHF (congestive heart failure) Status: Acute Plan: I & OS, IV LASIX, BP MONITORING. CARDIAC MONITORING, SUPPLEMENTAL O2 (7) Effusion, right knee Status: Acute Plan: IV STEROIDS, PAIN CONTROL, ELEVATE. KNEE XRAY OBTAINED, URIC ACID LEVEL. CRP OBTAINED (8) Gout attack Status: Acute Plan: URIC ACID LEVEL, IV SOLU MEDROL, COLCHICINE
[2018-01-23] MEDS: SOLU-Medrol 125 MG VIAL IVP SCH ×3 (11:26→21:15)
[2018-01-23] MEDS: COLCRYS TAB 0.6 MG PO SCH (11:27)
--- NOTE | 2018-01-23 13:17 | RAD ---
Examination: Portable chest History: CHF COPD Comparison reference 01/20/2018 Findings: Upper normal heart size with essentially clear lungs and pleural spaces. No change position pacemaker, with 1 set of discontinuous wires. Impression: No definite change or acute abnormality demonstrated. Reported By:
[2018-01-23] MEDS: HumuLIN R SUBCUT PRN ×3 (17:30→20:40)
[2018-01-23] MEDS ORDERED: MILK OF MAGNESIA PO PRN (19:20)
[2018-01-23] MEDS ORDERED: SNACK - Diabetic Appropriate PO SCH (20:00)
[2018-01-23] MEDS: ZANTAC PO SCH (20:39)
[2018-01-24] MEDS: NS 1000 ML 1,000 ML IV SCH ×2 (00:06→09:16)
[2018-01-24] MEDS: HumuLIN R SUBCUT PRN (05:49)
[2018-01-24] MEDS: DILAUDID INJ IVP PRN (05:50)
[2018-01-24 06:23] LABS: BASOPHILS % (AUTO) 0.2 % (0.2-1.0); EOSINOPHILS % (AUTO) 0.3 % (0.9-2.9); HEMATOCRIT 27.6 % (42.0-54.0); HEMOGLOBIN 9.6 g/dL (13.5-18.0); LYMPHOCYTES # (AUTO) 0.6 X10^3/uL (1.3-2.9); LYMPHOCYTES % (AUTO) 7.7 % (21.0-51.0); MEAN CORPUSCULAR HEMOGLOBIN 29.1 pg (27.0-34.0); MEAN CORPUSCULAR HGB CONC 34.8 g/dL (33.0-35.0); MEAN CORPUSCULAR VOLUME 83.4 fL (80.0-100.0); MEAN PLATELET VOLUME 9.7 fL (7.4-11.0); MONOCYTES # (AUTO) 0.1 x10^3/uL (0.3-0.8); MONOCYTES % (AUTO) 1.5 % (0.0-13.0); NEUTROPHILS # (AUTO) 6.6 x10^3/uL (2.2-4.8); NEUTROPHILS % (AUTO) 90.3 % (42.0-75.0); PLATELET COUNT 133 X10^3/uL (150.0-450.0); RED BLOOD COUNT 3.31 X10^6/uL (4.7-6.0); RED CELL DISTRIBUTION WIDTH 16.2 % (11.6-16.5); WHITE BLOOD COUNT 7.3 X10^3/uL (3.6-10.0)
[2018-01-24 06:47] LABS: ALANINE AMINOTRANSFERASE 33 Units/L (12-78); ALBUMIN 2.5 g/dL (3.4-5.0); ALKALINE PHOSPHATASE 48 Units/L (46-116); ASPARTATE AMINO TRANSFERASE 40 Units/L (15-37); BAND NEUTROPHILS % 6 % (0-10); BLOOD UREA NITROGEN 23 mg/dL (7-18); CALCIUM 8.2 mg/dL (8.5-10.1); CARBON DIOXIDE 27.9 mmol/L (21-32); CHLORIDE 104 mmol/L (98-107); COR CA(FOR HYPOALB) 9.4 mg/dL (8.5-10.1); COR NA(FOR HYPERGLY) 142 mmol/L (136-145); CREATININE 1.08 mg/dL (0.70-1.30); PLATELET MORPHOLOGY COMMENT NORMAL (NORMAL); SODIUM 140 mmol/L (136-145); eGFR NON BLACK RACES > 60 (>60)
[2018-01-24] MEDS: PROVENTIL NEB TX 0.083% 2.5MG/ 3ML NEB SCH (09:00)
[2018-01-24] MEDS: PULMICORT NEB TX 0.5 MG NEB SCH (09:00)
[2018-01-24] MEDS: VITAMIN D3 PO SCH (09:13)
[2018-01-24] MEDS: PATIENT'S HOME MEDICATION (Bupropion Hcl [Bupropion Hcl] 1 TAB) PO SCH (09:13)
[2018-01-24] MEDS: ROCEPHIN VIAL 1 GRAM 1 G in NS 100 ML IV + SPIKE MINIBAG* 100 ML IV SCH (09:14)
[2018-01-24] MEDS: MICRO K EXTEN CAP 10 MEQ PO SCH (09:14)
[2018-01-24] MEDS: LYRICA CAP 150 MG PO SCH (09:14)
[2018-01-24] MEDS: REQUIP PO SCH (09:14)
[2018-01-24] MEDS: NexIUM PO SCH (09:14)
[2018-01-24] MEDS: M.S. CONTIN 30 MG EXTENDED RELEASE PO SCH (09:14)
[2018-01-24] MEDS: LASIX IVP SCH (09:15)
[2018-01-24] MEDS: LEVAQUIN PREMIX IV 500 MG 500 MG/100 ML BAG IV SCH (09:15)
[2018-01-24] MEDS: ELIQUIS PO SCH (09:15)
[2018-01-24] MEDS: COLCRYS TAB 0.6 MG PO SCH (09:15)
[2018-01-24] MEDS ORDERED: GLUCOPHAGE PO PRN (11:43)
--- NOTE | 2018-01-24 13:19 | PCM.PROG ---
Progress Note - Progress Note for Day of Date of Exam: 01/24/18 - Subjective Subjective: 82 WM ER ADMISSION LAST PM WITH "PAIN ALL OVER" DEHYDRATION, WEAKNESS, CHF EXACERBATION. PT CURRENTLY ON IV LASIX, WITH MURPHY CATH STRICT I & OS. PT AWAKE AND ALERT THIS AM, SAYS HE FEELS MUCH BETTER THAN ADMISSION WITH CO CONTINUED RIGHT KNEE PAIN, WITH SLIGHT IMPROVEMENT OF PAIN AND REDNESS SINCE YESTERDAY. ELEVATED URIC ACID LEVEL, TREATED WITH SOLU MEDROL AND COLCHICINE PAIN CONTROL, MONITOR. CULTURES COLLECTED ON ADMISSION, CURRENTLY ON IV LEVAQUIN, ROCEPHIN, REPORTS IMPROVED CHEST CONGESTION, STABLE SOB. CT HEAD AND VQ SCAN WITHOUT ACUTE FINDINGS. - Past Medical Family Social History Past Med/Fam/Surg Hx: No changes since H&P Allergies: Allergies codeine Allergy (Verified 08/15/17 22:55) iodine Allergy (Verified 08/15/17 22:55) - Review of Systems ROS: No change since H&P - Vital Signs and I&O's Vital Signs: Temperature 98.2 F Pulse Rate [Left Brachial] 85 Pulse Rate 60 Respiratory Rate 22 Blood Pressure [Left Arm] 175/74 Blood Pressure [Right Arm] 117/58 Blood Pressure 121/53 O2 Sat by Pulse Oximetry 97 Intake and Output: Intake & Output 01/22/18 01/23/18 01/24/18 01/25/18 11:59 11:59 11:59 11:59 Intake Total 1786 / 1786 2715 / 2715 3105 / 3105 400 / 400 Output Total 2125 / 2125 1001 / 1001 2151 / 2151 2500 / 2500 Balance -339 / -339 1714 / 1714 954 / 954 -2100 / -2100 - Physical Exam Oriented: Person Eyes: Normal Ear: Normal Nose: Normal Throat: Dry Respiratory: Diminished Cardiovascular: Normal, Edema : Normal Auscultation: Bowel Sounds: Normal Tenderness: Normal Skin: Red (RIGHT KNEE), Tender Musculoskeletal: Right, Knee, Back:Thoracic, Swelling, Tender Psychiatric: Anxiety, Agitation Affect: Anxious Speech Pattern: Clear, Appropriate - Laboratory and Diagnostics Result Diagrams: 01/24/18 05:42 01/24/18 05:42 Labs: 01/21/18 09:33 Urine,Catheterized Urine Culture - Final 01/21/18 09:31 Blood Blood Culture - Preliminary 01/21/18 09:15 Blood Blood Culture - Preliminary Laboratory WBC 7.3 X10^3/uL (3.6-10.0) 01/24/18 05:42 RBC 3.31 X10^6/uL (4.7-6.0) L 01/24/18 05:42 Hgb 9.6 g/dL (13.5-18.0) L 01/24/18 05:42 Hct 27.6 % (42.0-54.0) L 01/24/18 05:42 MCV 83.4 fL (80.0-100.0) 01/24/18 05:42 MCH 29.1 pg (27.0-34.0) 01/24/18 05:42 MCHC 34.8 g/dL (33.0-35.0) 01/24/18 05:42 RDW 16.2 % (11.6-16.5) 01/24/18 05:42 Plt Count 133 X10^3/uL (150.0-450.0) L 01/24/18 05:42 Plt Count Comment Decreased (ADEQUATE) 01/24/18 05:42 MPV 9.7 fL (7.4-11.0) 01/24/18 05:42 Neut % (Auto) 90.3 % (42.0-75.0) H 01/24/18 05:42 Lymph % (Auto) 7.7 % (21.0-51.0) L 01/24/18 05:42 [place] % (Auto) 1.5 % (0.0-13.0) 01/24/18 05:42 Eos % (Auto) 0.3 % (0.9-2.9) L 01/24/18 05:42 Baso % (Auto) 0.2 % (0.2-1.0) 01/24/18 05:42 Neut # (Auto) 6.6 x10^3/uL (2.2-4.8) H 01/24/18 05:42 Lymph # (Auto) 0.6 X10^3/uL (1.3-2.9) L 01/24/18 05:42 [place] # (Auto) 0.1 x10^3/uL (0.3-0.8) L 01/24/18 05:42 Eos # (Auto) 0.0 x10^3/uL (0.0-0.2) 01/24/18 05:42 Baso # (Auto) 0.0 X10^3/uL (0.0-0.1) 01/24/18 05:42 Absolute Nucleated RBC 0.2 /100WBC 01/24/18 05:42 Total Counted 100 01/24/18 05:42 Neutrophils % (Manual) 86 % (39-76) H 01/24/18 05:42 Band Neutrophils % 6 % (0-10) 01/24/18 05:42 Lymphocytes % (Manual) 7 % (13-43) L 01/24/18 05:42 Monocytes % (Manual) 1 % (4-9) L 01/24/18 05:42 Plt Morphology Comment Normal (NORMAL) 01/24/18 05:42 RBC Morphology Normal (NORMAL) 01/24/18 05:42 D-Dimer 653 ng/mL (0-400) H* 01/20/18 17:29 Sample Site Rr 01/21/18 12:40 ABG pH 7.490 (7.35-7.45) H 01/21/18 12:40 ABG pCO2 43.0 mmHg (35.0-45.0) 01/21/18 12:40 ABG pO2 75.0 mmHg (80.0-100.0) L 01/21/18 12:40 ABG HCO3 32.8 mmol/L (22-26) H* 01/21/18 12:40 ABG O2 Saturation 96.0 % (90-100) 01/21/18 12:40 ABG Base Excess 8.5 mmol/L (-2.0-2.0) H 01/21/18 12:40 [place] Test Positive 01/21/18 12:40 A-a Gradient 71.0 mmHg 01/21/18 12:40 FiO2 28.000 01/21/18 12:40 Blood Gas Comments Marianne well ej 01/21/18 12:40 Sodium 140 mmol/L (136-145) 01/24/18 05:42 Corrected Sodium 142 mmol/L (136-145) 01/24/18 05:42 Potassium 4.0 mmol/L (3.5-5.1) 01/24/18 05:42 Chloride 104 mmol/L (98-107) 01/24/18 05:42 Carbon Dioxide 27.9 mmol/L (21-32) 01/24/18 05:42 BUN 23 mg/dL (7-18) H 01/24/18 05:42 Creatinine 1.08 mg/dL (0.70-1.30) 01/24/18 05:42 Est GFR (MDRD) Af Amer > 60 (>60) 01/24/18 05:42 Est GFR (MDRD) Non-Af > 60 (>60) 01/24/18 05:42 Glucose 182 mg/dL (65-99) H 01/24/18 05:42 POC Glucose (mg/dL) 73 mg/dL (65-99) 01/24/18 11:50 Uric Acid 8.8 mg/dL (3.5-7.2) H 01/23/18 06:15 Calcium 8.2 mg/dL (8.5-10.1) L 01/24/18 05:42 Corrected Calcium 9.4 mg/dL (8.5-10.1) 01/24/18 05:42 Iron 20 ug/dL (50-175) L 01/21/18 12:35 Transferrin 198 mg/dL (202-364) L 01/21/18 12:35 Ferritin 91 ng/mL (26-388) 01/21/18 12:35 Total Bilirubin 0.20 mg/dL (0.2-1.0) 01/24/18 05:42 AST 40 Units/L (15-37) H 01/24/18 05:42 ALT 33 Units/L (12-78) 01/24/18 05:42 Alkaline Phosphatase 48 Units/L (46-116) 01/24/18 05:42 Creatine Kinase 62 Units/L (39-308) 01/21/18 12:35 CK-MB (CK-2) < 1.0 ng/mL (0-4.0) 01/21/18 12:35 CK/CKMB % Calc 1.6 % (<4) 01/21/18 12:35 Troponin I < 0.02 ng/mL (0-1.5) 01/21/18 12:35 C-Reactive Protein 52.00 mg/L (0-3.0) H 01/20/18 17:29 Total Protein 6.0 g/dL (6.4-8.2) L 01/24/18 05:42 Albumin 2.5 g/dL (3.4-5.0) L 01/24/18 05:42 Globulin 3.5 g/dL (2.5-4.5) 01/24/18 05:42 Albumin/Globulin Ratio 0.7 Ratio (1.1-2.1) L 01/24/18 05:42 Vitamin B12 1783 pg/mL (193-986) H 01/21/18 12:35 Folate > 20.0 ng/mL (>8.6) 01/21/18 12:35 Specimen Type Clean catch urine 01/20/18 23:18 Urine Color Dark yellow (YELLOW) 01/20/18 23:18 Urine Appearance Clear (CLEAR) 01/20/18 23:18 Urine pH 8.0 (5.0 - 8.0) 01/20/18 23:18 Ur Specific [place] 1.010 (1.000-1.030) 01/20/18 23:18 Urine Protein 1+ (NEGATIVE) 01/20/18 23:18 Urine Glucose (UA) Negative (NEGATIVE) 01/20/18 23:18 Urine Ketones 2+ (NEGATIVE) 01/20/18 23:18 Urine Occult Blood Negative (NEGATIVE) 01/20/18 23:18 Urine Nitrite Negative (NEGATIVE) 01/20/18 23:18 Urine Bilirubin Negative (NEGATIVE) 01/20/18 23:18 Urine Urobilinogen Normal (NORMAL) 01/20/18 23:18 Ur Leukocyte Esterase Negative (NEGATIVE) 01/20/18 23:18 Urine RBC None seen /HPF (NONE SEEN) 01/20/18 23:18 Urine WBC None seen /HPF (NONE SEEN) 01/20/18 23:18 Ur Squamous Epith Cells Rare /HPF (NEGATIVE) 01/20/18 23:18 Urine Bacteria Negative /HPF (NEGATIVE) 01/20/18 23:18 Ur Culture Indicated? No/not indicated 01/20/18 23:18 - Plan (1) Altered mental status Status: Acute Qualifiers: Altered mental status type: disorientation Qualified Code(s): R41.0 - Disorientation, unspecified Plan: IMPROVED MENTAL STATUS, AWAKE AND ALERT. CONTINUOUS CARDIAC MONITORING. ABG, BLOOD, SPUTUM URINE CULTURES COLLECTED ON ADMISSION. IV LASIX, STRICT I & OS, SUPPLEMENTAL O2. IV LEVAQUIN AND IV ROCEPHIN, IV SOLU MEDROL. VQ SCAN ORDERED W/O PE. PT CURRENTLY ON ELIQUIS,. RESP THERAPY, PAIN CONTROL (2) Diabetes Status: Acute (3) COPD (chronic obstructive pulmonary disease) Status: Acute Qualifiers: COPD type: COPD with acute exacerbation Qualified Code(s): J44.1 - Chronic obstructive pulmonary disease with (acute) exacerbation (4) GERD (gastroesophageal reflux disease) Status: Chronic (5) Cardiomyopathy Status: Chronic (6) CHF (congestive heart failure) Status: Acute Plan: I & OS, IV LASIX, BP MONITORING. CARDIAC MONITORING, SUPPLEMENTAL O2 (7) Effusion, right knee Status: Acute Plan: IV STEROIDS, PAIN CONTROL, ELEVATE. KNEE XRAY OBTAINED, URIC ACID LEVEL. CRP OBTAINED (8) Gout attack Status: Acute Plan: URIC ACID LEVEL, IV SOLU MEDROL, COLCHICINE
[2018-01-24 14:03] VITALS: BP 138/63
[2018-01-24] MEDS ORDERED: CARDURA PO SCH (21:00)
== END 2018-01-24 15:57 | disposition home or self-care (01) | DRG 948 ==
LOC: ICU 15:50 → ER 15:50 → ICU 22:13
PROVIDERS: ADMIT Internal Medicine; ATTEND Internal Medicine
DX: M10.9 Gout, unspecified; J81.1 Chronic pulmonary edema; I25.10 Atherosclerotic heart disease of native coronary artery without angina pectoris; M25.461 Effusion, right knee; Z79.01 Long term (current) use of anticoagulants; E11.65 Type 2 diabetes mellitus with hyperglycemia; R06.02 Shortness of breath; F41.8 Other specified anxiety disorders; I42.8 Other cardiomyopathies; Z99.81 Dependence on supplemental oxygen; R79.82 Elevated C-reactive protein (CRP); N39.0 Urinary tract infection, site not specified; R26.89 Other abnormalities of gait and mobility; I50.9 Heart failure, unspecified; R41.82 Altered mental status, unspecified; J44.1 Chronic obstructive pulmonary disease with (acute) exacerbation; K21.9 Gastro-esophageal reflux disease without esophagitis; R52 Pain, unspecified; E86.0 Dehydration
CPT/HCPCS: 36415; 36600; 70450; 71010; 71045; 72100; 73501; 73560; 74022; 78582; 80053; 81001; 82550; 82553; 82607; 82728; 82746; 82803; 83540; 84466; 84484; 84550; 85025; 85378; 86140; 87040; 87086; 94640; 96365; 96367; 96374; 97110; 97163; 97167; 97530; 99231; 99238; 99283; 99284; A4222; G0378; J0696; J1170; J1815; J1940; J1956; J2920; J2930; J7030; J7050; J7613; J7626

== ENCOUNTER 2018-12-08 23:39 | Inpatient (IN) ==
--- NOTE | 2018-12-09 00:10 | DR.EXTPAIN ---
HPI Time seen Time Seen by Provider: 12/08/18 23:58 PCP Primary Care Physician: OCTAVIO Complaint/Symptoms Chief Complaint Doctor Comments: An 83 y/o male presenting with c/o leg pain and swelling since around dinner time. he also states that his knees are hurting. He denies chest pain or dyspnea. Chief Complaint:: PATIENT BROUGHT IN BY STRETCHER BY [facility] WITH C/O OF SWELLING AND PAIN IN LOWER EXTREMITIES AND PAIN IN BOTH KNEES." Nurses notes reviewed Nurses Notes Review: Yes Source History Provided: Patient Mode of arrival Mode of Arrival: EMS Timing Onset of Chief Complaint: 12/08/18 Context History of: None PMH PMH Past Medical History: Yes Past Medical History: Anxiety, Arthritis (Rheumatoid), COPD, Coronary Artery Disease, Diabetes, GERD, Hypertension and PUD Past Medical History Comment: AFID PACEMAKER Past Surgical History: Yes Surgical History: Angioplasty/Stents, Ortho Surgery and Thyroidectomy Family History History of Family Medical Conditions: Yes Family Medical History: Diabetes Mellitus, Heart Failure and Hypertension Social History Alcohol Use: None Do you use any recreational Drugs:: No infectious screening Have you traveled outside the country in the last 6 months?: No ROS Review of Systems Constitutional: No Symptoms Reported Eyes: No Symptoms Reported ENTM: No Symptoms Reported Respiratoy: No Symptoms Reported Cardiovascular: Edema Gastrointestinal/Abdominal: No Symptoms Reported Genitourinary: No Symptoms Reported Neurological: No Symptoms Reported Musculoskeletal: Knee (pain, b/l.) Integumentary: No Symptoms Reported Hematologic/Lymphatic: No Symptoms Reported Endocrine: No Symptoms Reported Psychiatric: No Symptoms Reported PE Vital Signs Vitals: Temperature 100.4 F Pulse Rate 96 Respiratory Rate 17 Blood Pressure [Left Arm] 148/75 Blood Pressure [Right Arm] 117/58 Blood Pressure 114/75 O2 Sat by Pulse Oximetry 83 General Limitations: No Limitations General Appearance: Alert and In No Apparent Distress Head Head Exam: Normal Inspection, Atraumatic and Normocephalic Eyes Eye exam: Normal Appearance and EOMI ENT ENT Exam: Normal Oropharynx and Mucous Membranes Moist Neck Neck Exam: Normal Inspection, Full ROM and Trachea Midline Chest Chest Inspection: Normal Inspection and Symmetric Chest Wall Rise Respiratory Respiratory Exam: Bilateral: Rales and Lower: Rales Cardiovascular Cardiovascular Exam: Irregular Rhythm, +S1 and +S2 Abdominal Exam Abdominal Exam: Normal Inspection, Normal Bowel Sounds and Soft; negative Distention, Tenderness, Guarding, Rebound, Rigidity, Dimnished Bowel Sounds, Hyperactive Bowel Sounds, Hypoactive Bowel Sounds, Organomegaly, Trauma, Incision, Ascites, Mass, Bruit, Pulsatile Mass and Hernia Extremities Extremities Exam: Tenderness, Normal Capillary Refill and Edema (both legs- 2+ pitting ); negative Normal Inspection, Full ROM, Joint Swelling and Calf Tenderness Back Back Exam: Normal Inspection Neurological Neurological Exam: Alert Psychiatric Psychiatric Exam: Normal Affect and Normal Mood Skin Skin Exam: Dry and Normal Color COURSE Reevaluation 1st: Improved Education/Counseling Education/Counseling: Patient, Family, Education and Counseling Educated On: Treatment, Diagnosis, Prognosis and Needs for Follow Up ROR Labs Reviewed Laboratory Results Reviewed?: Yes Result Diagrams: 12/09/18 00:09 12/09/18 00:09 Laboratory: WBC 16.4 X10^3/uL (3.6-10.0) H 12/09/18 00:09 RBC 3.90 X10^6/uL (4.7-6.0) L 12/09/18 00:09 Hgb 11.4 g/dL (13.5-18.0) L 12/09/18 00:09 Hct 34.7 % (42.0-54.0) L 12/09/18 00:09 MCV 88.9 fL (80.0-100.0) 12/09/18 00:09 MCH 29.2 pg (27.0-34.0) 12/09/18 00:09 MCHC 32.9 g/dL (33.0-35.0) L 12/09/18 00:09 RDW 15.6 % (11.6-16.5) 12/09/18 00:09 Plt Count 104 X10^3/uL (150.0-450.0) L 12/09/18 00:09 MPV 9.6 fL (7.4-11.0) 12/09/18 00:09 Neut % (Auto) 78.5 % (42.0-75.0) H 12/09/18 00:09 Lymph % (Auto) 11.8 % (21.0-51.0) L 12/09/18 00:09 Lares % (Auto) 8.6 % (0.0-13.0) 12/09/18 00:09 Eos % (Auto) 0.5 % (0.9-2.9) L 12/09/18 00:09 Baso % (Auto) 0.6 % (0.2-1.0) 12/09/18 00:09 Neut # (Auto) 12.9 x10^3/uL (2.2-4.8) H 12/09/18 00:09 Lymph # (Auto) 1.9 X10^3/uL (1.3-2.9) 12/09/18 00:09 [place]res # (Auto) 1.4 x10^3/uL (0.3-0.8) H 12/09/18 00:09 Eos # (Auto) 0.1 x10^3/uL (0.0-0.2) 12/09/18 00:09 Baso # (Auto) 0.1 X10^3/uL (0.0-0.1) 12/09/18 00:09 Absolute Nucleated RBC 0.0 /100WBC 12/09/18 00:09 Sodium 140 mmol/L (136-145) 12/09/18 00:09 Corrected Sodium TNP 12/09/18 00:09 Potassium 4.5 mmol/L (3.5-5.1) 12/09/18 00:09 Chloride 101 mmol/L (98-107) 12/09/18 00:09 Carbon Dioxide 32.4 mmol/L (21-32) H 12/09/18 00:09 BUN 23 mg/dL (7-18) H 12/09/18 00:09 Creatinine 1.76 mg/dL (0.70-1.30) H 12/09/18 00:09 Est GFR (MDRD) Af Amer 48 (>60) L 12/09/18 00:09 Est GFR (MDRD) Non-Af 39 (>60) L 12/09/18 00:09 Glucose 105 mg/dL (65-99) H 12/09/18 00:09 Calcium 8.7 mg/dL (8.5-10.1) 12/09/18 00:09 Corrected Calcium TNP 12/09/18 00:09 Total Bilirubin 1.40 mg/dL (0.2-1.0) H 12/09/18 00:09 AST 27 Units/L (15-37) 12/09/18 00:09 ALT 23 Units/L (12-78) 12/09/18 00:09 Alkaline Phosphatase 75 Units/L (46-116) 12/09/18 00:09 Total Protein 7.0 g/dL (6.4-8.2) 12/09/18 00:09 Albumin 3.5 g/dL (3.4-5.0) 12/09/18 00:09 Globulin 3.5 g/dL (2.5-4.5) 12/09/18 00:09 Albumin/Globulin Ratio 1.0 Ratio (1.1-2.1) L 12/09/18 00:09 Opioid Opioid Risk Tool Total: 0 Total Score Risk Category: Low Risk Copyright: Pepe RAI predicting aberrant behaviors Diagnosis Discharge Problem: Pedal edema, Chronic GERD Rheumatoid arthritis Qualifiers: Rheumatoid arthritis location: knee Rheumatoid factor presence: unspecified presence Laterality: bilateral Qualified Code(s): M06.9 - Rheumatoid arthritis, unspecified Diabetes mellitus Qualifiers: Diabetes mellitus type: type 2 Diabetes mellitus chcf insulin use: without superintendent container terminal use Diabetes mellitus complication status: without complication Qualified Code(s): E11.9 - Type 2 diabetes mellitus without complications A-fib Qualifiers: Atrial fibrillation type: chronic Qualified Code(s): I48.2 - Chronic atrial fibrillation CHF (congestive heart failure), NYHA class III Qualifiers: Congestive heart failure type: unspecified Qualified Code(s): I50.9 - Heart failure, unspecified Instructions Forms: Excuse From Work
[2018-12-09 00:19] LABS: BASOPHILS # (AUTO) 0.1 X10^3/uL (0.0-0.1); BASOPHILS % (AUTO) 0.6 % (0.2-1.0); EOSINOPHILS # (AUTO) 0.1 x10^3/uL (0.0-0.2); EOSINOPHILS % (AUTO) 0.5 % (0.9-2.9); HEMATOCRIT 34.7 % (42.0-54.0); HEMOGLOBIN 11.4 g/dL (13.5-18.0); LYMPHOCYTES # (AUTO) 1.9 X10^3/uL (1.3-2.9); LYMPHOCYTES % (AUTO) 11.8 % (21.0-51.0); MEAN CORPUSCULAR HEMOGLOBIN 29.2 pg (27.0-34.0); MEAN CORPUSCULAR HGB CONC 32.9 g/dL (33.0-35.0); MEAN CORPUSCULAR VOLUME 88.9 fL (80.0-100.0); MEAN PLATELET VOLUME 9.6 fL (7.4-11.0); MONOCYTES # (AUTO) 1.4 x10^3/uL (0.3-0.8); MONOCYTES % (AUTO) 8.6 % (0.0-13.0); NEUTROPHILS # (AUTO) 12.9 x10^3/uL (2.2-4.8); NEUTROPHILS % (AUTO) 78.5 % (42.0-75.0); PLATELET COUNT 104 X10^3/uL (150.0-450.0); RED CELL DISTRIBUTION WIDTH 15.6 % (11.6-16.5); WHITE BLOOD COUNT 16.4 X10^3/uL (3.6-10.0)
[2018-12-09] MEDS ORDERED: LASIX IVP ONE ×2 (00:20→00:41)
[2018-12-09 00:32] LABS: ALANINE AMINOTRANSFERASE 23 Units/L (12-78); ALBUMIN 3.5 g/dL (3.4-5.0); ALKALINE PHOSPHATASE 75 Units/L (46-116); ASPARTATE AMINO TRANSFERASE 27 Units/L (15-37); BLOOD UREA NITROGEN 23 mg/dL (7-18); CALCIUM 8.7 mg/dL (8.5-10.1); CARBON DIOXIDE 32.4 mmol/L (21-32); CHLORIDE 101 mmol/L (98-107); CREATININE 1.76 mg/dL (0.70-1.30); SODIUM 140 mmol/L (136-145); eGFR NON BLACK RACES 39 (>60)
[2018-12-09] MEDS ORDERED: DEMEROL INJ IVP ONE (00:32)
--- NOTE | 2018-12-09 00:37 | RAD ---
Chest radiograph, single AP view. History: Atrial fibrillation. 11/03/2018. There is a multi lead right subclavian cardiac pacemaker. Abandoned left-sided pacemaker leads also noted. The cardiac silhouette and pulmonary vasculature are within normal limits. Lungs are clear. No pneumothorax or pleural effusion. Conclusion: Stable examination without acute cardiopulmonary abnormality. Reported By:
[2018-12-09] MEDS ORDERED: DEMEROL INJ ONE ×2 (00:42→04:19)
[2018-12-09] MEDS ORDERED: K-DUR TAB 20 MEQ ONE (01:06)
[2018-12-09] MEDS: DEMEROL INJ IVP PRN ×3 (04:22→13:39)
[2018-12-09 05:10] LABS: BILIRUBIN,URINE NEGATIVE (NEGATIVE); BLOOD/HEMOGLOBIN,URINE NEGATIVE (NEGATIVE); GLUCOSE, URINE NEGATIVE (NEGATIVE); KETONES,URINE NEGATIVE (NEGATIVE); LEUKOCYTE ESTERASE ,URINE NEGATIVE (NEGATIVE); NITRITES,URINE NEGATIVE (NEGATIVE); PROTEIN,URINE 1+ (NEGATIVE); UROBILINOGEN,URINE NORMAL (NORMAL)
[2018-12-09 05:15] VITALS: BMI 29.9
[2018-12-09 05:17] LABS: APPEARANCE,URINE CLEAR (CLEAR); COLOR,URINE YELLOW (YELLOW)
[2018-12-09 05:18] LABS: BACTERIA,URINE NEGATIVE /HPF (NEGATIVE); HYALINE CASTS, URINE RARE /LPF (NEGATIVE); RBC,URINE NONE SEEN /HPF (NONE SEEN); SQUAMOUS EPITHELIAL CELL,UR NEGATIVE /HPF (NEGATIVE)
[2018-12-09 05:43] LABS: BASOPHILS # (AUTO) 0.1 X10^3/uL (0.0-0.1); BASOPHILS % (AUTO) 0.5 % (0.2-1.0); EOSINOPHILS # (AUTO) 0.1 x10^3/uL (0.0-0.2); EOSINOPHILS % (AUTO) 0.4 % (0.9-2.9); HEMATOCRIT 31.4 % (42.0-54.0); HEMOGLOBIN 10.5 g/dL (13.5-18.0); LYMPHOCYTES # (AUTO) 1.5 X10^3/uL (1.3-2.9); LYMPHOCYTES % (AUTO) 9.2 % (21.0-51.0); MEAN CORPUSCULAR HEMOGLOBIN 29.5 pg (27.0-34.0); MEAN CORPUSCULAR HGB CONC 33.4 g/dL (33.0-35.0); MEAN CORPUSCULAR VOLUME 88.3 fL (80.0-100.0); MEAN PLATELET VOLUME 9.8 fL (7.4-11.0); MONOCYTES # (AUTO) 1.6 x10^3/uL (0.3-0.8); MONOCYTES % (AUTO) 9.5 % (0.0-13.0); NEUTROPHILS # (AUTO) 13.1 x10^3/uL (2.2-4.8); NEUTROPHILS % (AUTO) 80.4 % (42.0-75.0); PLATELET COUNT 94 X10^3/uL (150.0-450.0); RED BLOOD COUNT 3.55 X10^6/uL (4.7-6.0); RED CELL DISTRIBUTION WIDTH 15.8 % (11.6-16.5); WHITE BLOOD COUNT 16.3 X10^3/uL (3.6-10.0)
[2018-12-09 06:01] LABS: ALANINE AMINOTRANSFERASE 20 Units/L (12-78); ALBUMIN 3.2 g/dL (3.4-5.0); ALKALINE PHOSPHATASE 67 Units/L (46-116); ASPARTATE AMINO TRANSFERASE 24 Units/L (15-37); BLOOD UREA NITROGEN 25 mg/dL (7-18); CALCIUM 8.7 mg/dL (8.5-10.1); CARBON DIOXIDE 31.5 mmol/L (21-32); CHLORIDE 101 mmol/L (98-107); COR CA(FOR HYPOALB) 9.3 mg/dL (8.5-10.1); CREATININE 1.88 mg/dL (0.70-1.30); SODIUM 140 mmol/L (136-145); TOTAL PROTEIN 6.5 g/dL (6.4-8.2); eGFR NON BLACK RACES 36 (>60)
[2018-12-09] MEDS: MAG-OX TAB PO SCH ×2 (09:27→21:31)
[2018-12-09] MEDS: LASIX IVP SCH ×2 (09:30→21:29)
[2018-12-09] MEDS ORDERED: PHARMACY CONSULT - DOSE _____ XX SCH (11:00)
[2018-12-09] MEDS: REQUIP PO SCH ×2 (13:51→21:31)
[2018-12-09] MEDS: M.S. CONTIN 30 MG EXTENDED RELEASE PO PRN (13:52)
[2018-12-09] MEDS: LYRICA CAP 150 MG PO SCH ×2 (13:54→21:30)
[2018-12-09] MEDS: SOLU-Medrol 40 MG VIAL IVP SCH ×2 (13:54→21:42)
[2018-12-09] MEDS: NORCO 10/325 TAB PO PRN ×2 (13:56→22:36)
[2018-12-09] MEDS ORDERED: LASIX PO SCH (14:00)
[2018-12-09] MEDS: XANAX PO PRN (14:00)
[2018-12-09] MEDS ORDERED: GLUCOPHAGE PO SCH (14:00)
[2018-12-09] MEDS ORDERED: GLUCOPHAGE ONE (14:05)
[2018-12-09] MEDS: MICRO K EXTEN CAP 10 MEQ PO SCH (14:09)
[2018-12-09] MEDS: NexIUM PO SCH (14:09)
[2018-12-09] MEDS: LOVENOX INJ 30 MG SYR SC SCH (14:09)
[2018-12-09] MEDS ORDERED: NS 500 ML IV 500 ML ONE (14:22)
[2018-12-09] MEDS: VIBRAMYCIN 100 MG in D5W 250 ML IV 250 ML IV SCH ×2 (15:03→21:49)
[2018-12-09] MEDS: WELLBUTRIN IR (PLAIN) PO SCH (15:04)
--- NOTE | 2018-12-09 18:11 | DR.H&P ---
H&P - History & Physical for Day of: H&P Date: 12/09/18 - Chief Complaint Chief Complaint: WEAKNESS, LOWER LEG EDEMA AND PAIN, SOB - History of Present Illness History of Present Illness: 83 WM ER ADMISSION AFTER PRESENTING WITH EMS WITH CO leg pain and swelling since around dinner time, he also states that his knees are hurting. FAMILY REPORTS O2 SATURATION HAS BEEN IN 80S PRIOR TO ARRIVAL TO ER. PT HAS PMH OF CHF, CAD, COPD, RA, ERICA, HTN, RLS, DM. PT ADMITTED TO ICU FOR EVALUATION AND TREAMENT OF ACUTE ILLNESS. - Past Medical History Past Medical History: Coronary Artery Disease, Hypertension, Diabetes, Anxiety, COPD, PUD, GERD, Arthritis (Rheumatoid) - Past Surgical History Surgical History: Ortho Surgery, Other (PACE MAKER) - Family History Family Medical History: Diabetes Mellitus, Heart Failure, Hypertension - Social History Does patient currently use any type of tobacco product: No Have you used tobacco products in the last 12 months: No Type of Tobacco Use: None Alcohol Use: None Drug Use: None - Medications Home Medications: codeine Allergy (Verified 09/10/18 15:17) iodine Allergy (Verified 09/10/18 15:17) CONTINUE taking the following medications atorvastatin 20 mg PO QHS 12/09/18 [History] bisacodyl 5 mg PO QHS 12/09/18 [History] cholecalciferol (vitamin D3) [Vitamin D3] 1,000 unit PO QDAY 12/09/18 [History] folic acid 0.8 mg PO QDAY 12/09/18 [History] magnesium oxide 400 mg PO BID 12/09/18 [History] prednisone 5 mg PO QDAY 12/09/18 [History] vit A-vit P-wnufne-vlqs-copper [Evgd-Pdth-Xurq(vit A,C-biotin)] 1 cap PO DAILY 12/09/18 [History] vitamin E 400 unit PO QDAY 12/09/18 [History] - Review of Systems Constitutional: Weakness, Malaise Eyes: No Symptoms Reported ENT: No Symptoms Reported Respiratory: Cough, Shortness of Breath, SOB with Excertion, Wheezing Cardiovascular: Edema Gastrointestinal: No Symptoms Reported Genitourinary: No Symptoms Reported Musculoskeletal: Back Pain, Leg Pain Skin: No Symptoms Reported Neurological: Weakness - Physical Exam Vital Signs: Temperature 98.1 F Pulse Rate [Left Brachial] 99 Pulse Rate 75 Respiratory Rate 15 Blood Pressure [Left Arm] 115/56 Blood Pressure [Right Arm] 117/58 Blood Pressure 117/68 O2 Sat by Pulse Oximetry 98 Oriented: Normal Eyes: Normal Ear: Normal Throat: Dry Respiratory: Diminished Throughout Cardiovascular: Edema : Normal Auscultation: Bowel Sounds: Normal Palpation: Normal Tenderness: Normal Skin: Decreased Turgur Musculoskeletal: Right, Left, Knee, Leg, Back:Thoracic, Back:Lumbar, Swelling, Tender Psychiatric: Anxiety Affect: Anxious Speech Pattern: Clear, Appropriate - Assessment/Plan (1) COPD (chronic obstructive pulmonary disease) Qualifiers: COPD type: COPD with acute exacerbation Qualified Code(s): J44.1 - Chronic obstructive pulmonary disease with (acute) exacerbation Status: Acute Plan: ADMIT ICU, RESP CONSULT. CXR ON ADMISSION, BLOOD AND SPUTUM CULTURE. GENTLE IV HYDRATION, STRICT I & OS. PAIN CONTROL, CARDIAC AND BP MONITORING. VERIFY HOME MEDICATION, SOLU MEDROL FOR COPD FLARE AND RA FLARE CONTROL. SUPPLEMENTAL O2 (2) SOB (shortness of breath) Status: Acute (3) Diabetes Status: Acute (4) Bilateral lower extremity edema Status: Acute (5) CHF (congestive heart failure) Status: Acute (6) Chronic GERD Status: Acute (7) Rheumatoid arthritis Status: Chronic - Allergies Allergies/Adverse Reactions: Allergies Allergy/AdvReac Type Severity Reaction Status Date / Time codeine Allergy Verified 09/10/18 15:17 iodine Allergy Verified 09/10/18 15:17
--- NOTE | 2018-12-09 19:25 | RAD ---
Left knee, two views Indication: Chronic knee pain Comparison: None Findings: No acute fracture or malalignment of the left knee is identified. There is mild degenerative narrowing of the medial femorotibial and patellofemoral compartments with small marginal osteophyte formation. There is a trace associated joint effusion without lipohemarthrosis. Enthesopathic changes of the patella noted. Surrounding soft tissues are unremarkable. 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 Reported By:
--- NOTE | 2018-12-09 19:29 | RAD ---
Right knee two views Indication: Chronic bilateral knee pain. No history of trauma Findings: Positioning limits sensitivity significantly. There is mild degenerative change, with minimal medial femorotibial joint space narrowing. Enthesopathy is seen at the patella. Effusion cannot be excluded. Impression: Position limited study shows mild degenerative change. Effusion cannot be excluded. Follow-up with further imaging as needed. Reported By:
[2018-12-09] MEDS: PROVENTIL NEB TX 0.083% 2.5MG/ 3ML NEB SCH (20:20)
[2018-12-09] MEDS: LIPITOR TAB 20 MG PO SCH (21:30)
[2018-12-09] MEDS: ZANTAC PO SCH (21:32)
[2018-12-09] MEDS: HumaLOG SC PRN (21:36)
[2018-12-10] MEDS: SOLU-Medrol 40 MG VIAL IVP SCH (06:05)
[2018-12-10 06:15] LABS: BASOPHILS % (AUTO) 0.1 % (0.2-1.0); HEMATOCRIT 32.9 % (42.0-54.0); HEMOGLOBIN 10.9 g/dL (13.5-18.0); LYMPHOCYTES # (AUTO) 0.7 X10^3/uL (1.3-2.9); LYMPHOCYTES % (AUTO) 5.4 % (21.0-51.0); MEAN CORPUSCULAR HEMOGLOBIN 28.8 pg (27.0-34.0); MEAN CORPUSCULAR VOLUME 87.3 fL (80.0-100.0); MEAN PLATELET VOLUME 9.5 fL (7.4-11.0); MONOCYTES # (AUTO) 0.3 x10^3/uL (0.3-0.8); MONOCYTES % (AUTO) 2.5 % (0.0-13.0); NEUTROPHILS # (AUTO) 11.3 x10^3/uL (2.2-4.8); PLATELET COUNT 91 X10^3/uL (150.0-450.0); RED BLOOD COUNT 3.77 X10^6/uL (4.7-6.0); RED CELL DISTRIBUTION WIDTH 16.1 % (11.6-16.5); WHITE BLOOD COUNT 12.3 X10^3/uL (3.6-10.0)
[2018-12-10] MEDS: HumaLOG SC PRN ×4 (06:25→20:58)
[2018-12-10 06:35] LABS: ALBUMIN 2.8 g/dL (3.4-5.0); CALCIUM 8.8 mg/dL (8.5-10.1); CARBON DIOXIDE 31.9 mmol/L (21-32); COR CA(FOR HYPOALB) 9.8 mg/dL (8.5-10.1); CREATININE 1.79 mg/dL (0.70-1.30); TOTAL PROTEIN 7.1 g/dL (6.4-8.2)
[2018-12-10 06:54] LABS: PLATELET MORPHOLOGY COMMENT NORMAL (NORMAL)
[2018-12-10] MEDS: PROVENTIL NEB TX 0.083% 2.5MG/ 3ML NEB SCH ×2 (09:00→20:32)
[2018-12-10] MEDS: VIBRAMYCIN 100 MG in D5W 250 ML IV 250 ML IV SCH ×2 (09:36→20:57)
[2018-12-10] MEDS: REQUIP PO SCH ×2 (09:37→20:03)
[2018-12-10] MEDS: MICRO K EXTEN CAP 10 MEQ PO SCH (09:38)
[2018-12-10] MEDS: NORCO 10/325 TAB PO PRN ×2 (09:39→21:58)
[2018-12-10] MEDS: MAG-OX TAB PO SCH ×2 (09:40→20:03)
[2018-12-10] MEDS: LASIX IVP SCH ×2 (09:41→20:02)
[2018-12-10] MEDS: WELLBUTRIN IR (PLAIN) PO SCH (09:41)
[2018-12-10] MEDS: LOVENOX INJ 30 MG SYR SC SCH (09:41)
[2018-12-10] MEDS: NexIUM PO SCH (09:41)
[2018-12-10] MEDS ORDERED: LYRICA CAP 75 MG PO ONE (09:45)
[2018-12-10] MEDS: LYRICA CAP 150 MG PO SCH ×2 (09:47→20:02)
[2018-12-10] MEDS: M.S. CONTIN 30 MG EXTENDED RELEASE PO PRN (10:10)
--- NOTE | 2018-12-10 15:32 | PCM.PROG ---
Progress Note - Progress Note for Day of Date of Exam: 12/10/18 - Subjective Subjective: 83 WM ADMITTE DON 12/09 WITH SOB, WEAKNESS, CO INTRACTABLE JOINT PAIN WORSE TO BILATERAL KNEES AND CAD WITH CHF. PT HAD IV LASIX IN ER WITH INCREASED URINE OUTPUT. PT WAS GIVEN IV SOLU MEDROL AND STARTED ON RESP THERAPY AND IV ATBX FOR COPD EXACERBATION. PT STATES HE HAS MUCH IMPROVEMENT IN JOINT PAIN AFTER STEROIDS BUT CONTINUES TO LOCALIZED TO RIGHT KNEE WITH INCREASED JOINT SWELLING. WILL OBTAIN URIC ACID LEVEL TODAY. PT ENCOURAGED TO PRODUCE A SPUTUM SPECIMEN. PT RENAL FUNCTION CONTINUES TO BE ELEVATED THIS AM, ENCOURAGED ORAL INTAKE AND WE WILL MONITOR STRICT I & OS WITH AM WEIGHT AND CHEST XRAY. - Past Medical Family Social History Past Med/Fam/Surg Hx: No changes since H&P Allergies: Allergies codeine Allergy (Verified 09/10/18 15:17) iodine Allergy (Verified 09/10/18 15:17) - Review of Systems ROS: No change since H&P - Vital Signs and I&O's Vital Signs: Temperature 97.7 F Pulse Rate [Left Brachial] 99 Pulse Rate 77 Respiratory Rate 22 Blood Pressure [Left Arm] 115/56 Blood Pressure [Right Arm] 117/58 Blood Pressure 110/55 O2 Sat by Pulse Oximetry 95 Intake and Output: Intake & Output 12/08/18 12/09/18 12/10/18 12/11/18 11:59 11:59 11:59 11:59 Intake Total 940 / 940 Output Total 1275 / 1275 2049 / 2049 Balance -1255 / -1255 -1110 / -1110 - Physical Exam Oriented: Normal Eyes: Normal Ear: Normal Throat: Dry Respiratory: Diminished, Rhonchi Cardiovascular: Edema : Normal Auscultation: Bowel Sounds: Normal Tenderness: Normal Skin: Decreased Turgur Musculoskeletal: Right, Left, Knee, Leg, Back:Thoracic, Back:Lumbar, Swelling, Tender Psychiatric: Anxiety Affect: Anxious Speech Pattern: Clear, Appropriate - Laboratory and Diagnostics Result Diagrams: 12/10/18 05:45 12/10/18 05:45 Labs: 12/09/18 19:30 Urine,Clean Catch Urine Culture - Preliminary Laboratory WBC 12.3 X10^3/uL (3.6-10.0) H 12/10/18 05:45 RBC 3.77 X10^6/uL (4.7-6.0) L 12/10/18 05:45 Hgb 10.9 g/dL (13.5-18.0) L 12/10/18 05:45 Hct 32.9 % (42.0-54.0) L 12/10/18 05:45 MCV 87.3 fL (80.0-100.0) 12/10/18 05:45 MCH 28.8 pg (27.0-34.0) 12/10/18 05:45 MCHC 33.0 g/dL (33.0-35.0) 12/10/18 05:45 RDW 16.1 % (11.6-16.5) 12/10/18 05:45 Plt Count 91 X10^3/uL (150.0-450.0) L 12/10/18 05:45 Plt Count Comment Decreased (ADEQUATE) 12/10/18 05:45 MPV 9.5 fL (7.4-11.0) 12/10/18 05:45 Neut % (Auto) 92.0 % (42.0-75.0) H 12/10/18 05:45 Lymph % (Auto) 5.4 % (21.0-51.0) L 12/10/18 05:45 [place] % (Auto) 2.5 % (0.0-13.0) 12/10/18 05:45 Eos % (Auto) 0.0 % (0.9-2.9) L 12/10/18 05:45 Baso % (Auto) 0.1 % (0.2-1.0) L 12/10/18 05:45 Neut # (Auto) 11.3 x10^3/uL (2.2-4.8) H 12/10/18 05:45 Lymph # (Auto) 0.7 X10^3/uL (1.3-2.9) L 12/10/18 05:45 [place] # (Auto) 0.3 x10^3/uL (0.3-0.8) 12/10/18 05:45 Eos # (Auto) 0.0 x10^3/uL (0.0-0.2) 12/10/18 05:45 Baso # (Auto) 0.0 X10^3/uL (0.0-0.1) 12/10/18 05:45 Absolute Nucleated RBC 0.0 /100WBC 12/10/18 05:45 Total Counted 100 12/10/18 05:45 Neutrophils % (Manual) 96 % (39-76) H 12/10/18 05:45 Lymphocytes % (Manual) 4 % (13-43) L 12/10/18 05:45 Plt Morphology Comment Normal (NORMAL) 12/10/18 05:45 RBC Morphology Normal (NORMAL) 12/10/18 05:45 Sodium 138 mmol/L (136-145) 12/10/18 05:45 Corrected Sodium 140 mmol/L (136-145) 12/10/18 05:45 Potassium 3.7 mmol/L (3.5-5.1) 12/10/18 05:45 Chloride 99 mmol/L (98-107) 12/10/18 05:45 Carbon Dioxide 31.9 mmol/L (21-32) 12/10/18 05:45 BUN 27 mg/dL (7-18) H 12/10/18 05:45 Creatinine 1.79 mg/dL (0.70-1.30) H 12/10/18 05:45 Est GFR (MDRD) Af Amer 47 (>60) L 12/10/18 05:45 Est GFR (MDRD) Non-Af 39 (>60) L 12/10/18 05:45 Glucose 199 mg/dL (65-99) H 12/10/18 05:45 POC Glucose (mg/dL) 278 mg/dL (65-99) H 12/10/18 12:06 Calcium 8.8 mg/dL (8.5-10.1) 12/10/18 05:45 Corrected Calcium 9.8 mg/dL (8.5-10.1) 12/10/18 05:45 Total Bilirubin 0.70 mg/dL (0.2-1.0) 12/10/18 05:45 AST 21 Units/L (15-37) 12/10/18 05:45 ALT 21 Units/L (12-78) 12/10/18 05:45 Alkaline Phosphatase 63 Units/L (46-116) 12/10/18 05:45 Total Protein 7.1 g/dL (6.4-8.2) 12/10/18 05:45 Albumin 2.8 g/dL (3.4-5.0) L 12/10/18 05:45 Globulin 4.3 g/dL (2.5-4.5) 12/10/18 05:45 Albumin/Globulin Ratio 0.7 Ratio (1.1-2.1) L 12/10/18 05:45 Specimen Type Catherized urine 12/09/18 04:55 Urine Color Yellow (YELLOW) 12/09/18 04:55 Urine Appearance Clear (CLEAR) 12/09/18 04:55 Urine pH 7.0 (5.0 - 8.0) 12/09/18 04:55 Ur Specific [place] 1.010 (1.000-1.030) 12/09/18 04:55 Urine Protein 1+ (NEGATIVE) 12/09/18 04:55 Urine Glucose (UA) Negative (NEGATIVE) 12/09/18 04:55 Urine Ketones Negative (NEGATIVE) 12/09/18 04:55 Urine Occult Blood Negative (NEGATIVE) 12/09/18 04:55 Urine Nitrite Negative (NEGATIVE) 12/09/18 04:55 Urine Bilirubin Negative (NEGATIVE) 12/09/18 04:55 Urine Urobilinogen Normal (NORMAL) 12/09/18 04:55 Ur Leukocyte Esterase Negative (NEGATIVE) 12/09/18 04:55 Urine RBC None seen /HPF (NONE SEEN) 12/09/18 04:55 Urine WBC 0-2 /HPF (NONE SEEN) 12/09/18 04:55 Ur Squamous Epith Cells Negative /HPF (NEGATIVE) 12/09/18 04:55 Urine Bacteria Negative /HPF (NEGATIVE) 12/09/18 04:55 Hyaline Casts Rare /LPF (NEGATIVE) 12/09/18 04:55 Ur Culture Indicated? No/not indicated 12/09/18 04:55 - Plan (1) COPD (chronic obstructive pulmonary disease) Status: Acute Qualifiers: COPD type: COPD with acute exacerbation Qualified Code(s): J44.1 - Chronic obstructive pulmonary disease with (acute) exacerbation Plan: RESP CONSULT. AM CXR, BLOOD AND SPUTUM CULTURE ORDERED ON ADMISSION. GENTLE IV HYDRATION, STRICT I & OS. PAIN CONTROL, CARDIAC AND BP MONITORING. SOLU MEDROL FOR COPD FLARE AND RA FLARE CONTROL. SUPPLEMENTAL O2 (2) SOB (shortness of breath) Status: Acute Plan: DUO NEBS AND SUPPLEMENTAL O2 (3) Diabetes Status: Acute (4) Bilateral lower extremity edema Status: Acute (5) CHF (congestive heart failure) Status: Acute (6) Chronic GERD Status: Acute (7) Rheumatoid arthritis Status: Chronic Plan: PAIN CONTROL, PT EVALUATION. IV SOLU MEDROL X 3 DOSES. URIC ACID LEVEL R/O GOUT FLARE
[2018-12-10] MEDS: LIPITOR TAB 20 MG PO SCH (20:02)
[2018-12-10] MEDS: ZANTAC PO SCH (20:04)
[2018-12-11] MEDS: HumaLOG SC PRN ×2 (05:50→12:56)
--- NOTE | 2018-12-11 05:51 | RAD ---
Examination: Portable AP chest History: SOB Comparison 12/09/2018 Findings: Continued normal heart size with mild chronic interstitial thickening/fibrosis. There is no change in position of the right-sided pacemaker or abandoned left-sided pacemaker wires. Impression: No interval change; no acute findings. Reported By:
[2018-12-11 06:33] LABS: BASOPHILS % (AUTO) 0.2 % (0.2-1.0); HEMATOCRIT 29.7 % (42.0-54.0); HEMOGLOBIN 9.9 g/dL (13.5-18.0); LYMPHOCYTES # (AUTO) 0.6 X10^3/uL (1.3-2.9); LYMPHOCYTES % (AUTO) 4.2 % (21.0-51.0); MEAN CORPUSCULAR HEMOGLOBIN 29.2 pg (27.0-34.0); MEAN CORPUSCULAR HGB CONC 33.4 g/dL (33.0-35.0); MEAN CORPUSCULAR VOLUME 87.4 fL (80.0-100.0); MEAN PLATELET VOLUME 10.1 fL (7.4-11.0); MONOCYTES # (AUTO) 0.6 x10^3/uL (0.3-0.8); MONOCYTES % (AUTO) 4.1 % (0.0-13.0); NEUTROPHILS # (AUTO) 13.1 x10^3/uL (2.2-4.8); NEUTROPHILS % (AUTO) 91.5 % (42.0-75.0); PLATELET COUNT 94 X10^3/uL (150.0-450.0); RED CELL DISTRIBUTION WIDTH 15.4 % (11.6-16.5); WHITE BLOOD COUNT 14.3 X10^3/uL (3.6-10.0)
[2018-12-11 06:55] LABS: ALBUMIN 2.6 g/dL (3.4-5.0); CALCIUM 8.5 mg/dL (8.5-10.1); CARBON DIOXIDE 31.6 mmol/L (21-32); COR CA(FOR HYPOALB) 9.6 mg/dL (8.5-10.1); CREATININE 1.51 mg/dL (0.70-1.30); TOTAL PROTEIN 6.8 g/dL (6.4-8.2)
[2018-12-11 07:01] LABS: PLATELET MORPHOLOGY COMMENT NORMAL (NORMAL)
[2018-12-11] MEDS: PROVENTIL NEB TX 0.083% 2.5MG/ 3ML NEB SCH ×2 (08:17→20:39)
[2018-12-11] MEDS ORDERED: LYRICA CAP 75 MG PO ONE (09:16)
[2018-12-11] MEDS: WELLBUTRIN IR (PLAIN) PO SCH (09:56)
[2018-12-11] MEDS: LOVENOX INJ 30 MG SYR SC SCH (09:56)
[2018-12-11] MEDS: LASIX IVP SCH ×2 (09:56→21:55)
[2018-12-11] MEDS: XANAX PO PRN (09:57)
[2018-12-11] MEDS: MAG-OX TAB PO SCH ×2 (09:58→21:15)
[2018-12-11] MEDS: MICRO K EXTEN CAP 10 MEQ PO SCH (09:58)
[2018-12-11] MEDS: LYRICA CAP 150 MG PO SCH ×2 (09:58→21:15)
[2018-12-11] MEDS: NexIUM PO SCH (09:58)
[2018-12-11] MEDS: REQUIP PO SCH ×2 (09:59→21:55)
[2018-12-11] MEDS: VIBRAMYCIN 100 MG in D5W 250 ML IV 250 ML IV SCH ×2 (10:00→21:55)
[2018-12-11] MEDS: NORCO 10/325 TAB PO PRN ×2 (10:01→22:13)
[2018-12-11] MEDS: M.S. CONTIN 30 MG EXTENDED RELEASE PO PRN (10:17)
[2018-12-11] MEDS ORDERED: HumuLIN R SUBCUT PRN (21:45)
[2018-12-11] MEDS: ZANTAC PO SCH (21:55)
[2018-12-11] MEDS: LIPITOR TAB 20 MG PO SCH (21:55)
[2018-12-12] MEDS: M.S. CONTIN 30 MG EXTENDED RELEASE PO PRN (02:02)
[2018-12-12 06:20] LABS: BASOPHILS % (AUTO) 0.2 % (0.2-1.0); EOSINOPHILS # (AUTO) 0.1 x10^3/uL (0.0-0.2); EOSINOPHILS % (AUTO) 0.8 % (0.9-2.9); HEMATOCRIT 29.9 % (42.0-54.0); HEMOGLOBIN 10.1 g/dL (13.5-18.0); LYMPHOCYTES # (AUTO) 1.7 X10^3/uL (1.3-2.9); LYMPHOCYTES % (AUTO) 19.3 % (21.0-51.0); MEAN CORPUSCULAR HEMOGLOBIN 29.5 pg (27.0-34.0); MEAN CORPUSCULAR VOLUME 86.9 fL (80.0-100.0); MEAN PLATELET VOLUME 9.3 fL (7.4-11.0); MONOCYTES # (AUTO) 0.7 x10^3/uL (0.3-0.8); MONOCYTES % (AUTO) 8.3 % (0.0-13.0); NEUTROPHILS # (AUTO) 6.5 x10^3/uL (2.2-4.8); NEUTROPHILS % (AUTO) 71.4 % (42.0-75.0); PLATELET COUNT 101 X10^3/uL (150.0-450.0); RED BLOOD COUNT 3.44 X10^6/uL (4.7-6.0); RED CELL DISTRIBUTION WIDTH 15.5 % (11.6-16.5)
[2018-12-12 06:34] LABS: ALANINE AMINOTRANSFERASE 26 Units/L (12-78); ALBUMIN 2.7 g/dL (3.4-5.0); ALKALINE PHOSPHATASE 56 Units/L (46-116); ASPARTATE AMINO TRANSFERASE 25 Units/L (15-37); BLOOD UREA NITROGEN 32 mg/dL (7-18); CALCIUM 8.5 mg/dL (8.5-10.1); CHLORIDE 101 mmol/L (98-107); COR CA(FOR HYPOALB) 9.5 mg/dL (8.5-10.1); CREATININE 1.37 mg/dL (0.70-1.30); SODIUM 142 mmol/L (136-145); TOTAL PROTEIN 6.6 g/dL (6.4-8.2); eGFR NON BLACK RACES 52 (>60)
[2018-12-12] MEDS: PROVENTIL NEB TX 0.083% 2.5MG/ 3ML NEB SCH (08:07)
[2018-12-12] MEDS: NORCO 10/325 TAB PO PRN (08:40)
[2018-12-12] MEDS: XANAX PO PRN (08:41)
[2018-12-12] MEDS ORDERED: LYRICA CAP 75 MG PO ONE (09:36)
[2018-12-12] MEDS ORDERED: D5W 250 ML IV 250 ML ONE (09:55)
[2018-12-12] MEDS: LASIX IVP SCH (10:10)
[2018-12-12] MEDS: VIBRAMYCIN 100 MG in D5W 250 ML IV 250 ML IV SCH (10:11)
[2018-12-12] MEDS: LOVENOX INJ 30 MG SYR SC SCH (10:11)
[2018-12-12] MEDS: LYRICA CAP 150 MG PO SCH (10:12)
[2018-12-12] MEDS: MICRO K EXTEN CAP 10 MEQ PO SCH (10:13)
[2018-12-12] MEDS: MAG-OX TAB PO SCH (10:13)
[2018-12-12] MEDS: REQUIP PO SCH (10:14)
[2018-12-12] MEDS: NexIUM PO SCH (10:14)
[2018-12-12] MEDS: WELLBUTRIN IR (PLAIN) PO SCH (11:57)
[2018-12-12 16:59] VITALS: BP 126/58
[2018-12-12] MEDS ORDERED: NORCO 10/325 TAB ONE (20:00)
[2018-12-12] MEDS ORDERED: VIBRAMYCIN ONE (20:00)
[2018-12-12] MEDS ORDERED: HumuLIN R ONE (20:00)
[2018-12-12] MEDS ORDERED: LYRICA CAP 150 MG ONE (20:00)
[2018-12-12] MEDS ORDERED: D5W ONE (20:00)
[2018-12-12] MEDS ORDERED: MAG-OX TAB ONE (20:00)
[2018-12-12] MEDS ORDERED: M.S. CONTIN 30 MG EXTENDED RELEASE ONE (20:00)
[2018-12-12] MEDS ORDERED: REQUIP PO ONE (20:00)
[2018-12-12] MEDS ORDERED: ZANTAC ONE (20:00)
[2018-12-12] MEDS ORDERED: LIPITOR TAB 20 MG ONE (20:00)
[2018-12-12] MEDS ORDERED: LASIX IVP ONE (20:00)
[2018-12-13] MEDS ORDERED: XANAX PO ONE (09:00)
[2018-12-13] MEDS ORDERED: NexIUM PO ONE (09:00)
[2018-12-13] MEDS ORDERED: MICRO K EXTEN CAP 10 MEQ PO ONE (09:00)
[2018-12-13] MEDS ORDERED: LYRICA CAP 75 MG PO ONE (09:00)
[2018-12-13] MEDS ORDERED: PROVENTIL NEB TX 0.083% 2.5MG/ 3ML NEB ONE (09:00)
[2018-12-13] MEDS ORDERED: MAG-OX TAB PO ONE (09:00)
[2018-12-13] MEDS ORDERED: LOVENOX INJ 30 MG SYR SC ONE (09:00)
[2018-12-13] MEDS ORDERED: REQUIP PO ONE (09:00)
[2018-12-13] MEDS ORDERED: LASIX IVP ONE (09:00)
[2018-12-13] MEDS ORDERED: METHERGINE IVP ONE (10:00)
[2018-12-13] MEDS ORDERED: NORCO 10/325 TAB PO ONE (11:00)
[2018-12-20 09:56] LABS: CHLORIDE 96 mmol/L (98-107); SODIUM 140 mmol/L (136-145)
[2018-12-20 09:57] LABS: BLOOD UREA NITROGEN 29 mg/dL (7-18); CARBON DIOXIDE 36.4 mmol/L (21-32); CREATININE 1.31 mg/dL (0.70-1.30); eGFR NON BLACK RACES 55 (>60)
[2018-12-20 09:58] LABS: CALCIUM 8.8 mg/dL (8.5-10.1); URIC ACID 10.9 mg/dL (3.5-7.2)
[2018-12-20 09:59] LABS: ALANINE AMINOTRANSFERASE 26 Units/L (12-78); ALBUMIN 2.7 g/dL (3.4-5.0); ALKALINE PHOSPHATASE 61 Units/L (46-116); ASPARTATE AMINO TRANSFERASE 21 Units/L (15-37); COR CA(FOR HYPOALB) 9.8 mg/dL (8.5-10.1); RED BLOOD COUNT 3.72 X10^6/uL (4.7-6.0)
[2018-12-20 10:00] LABS: BASOPHILS % (AUTO) 0.2 % (0.2-1.0); EOSINOPHILS # (AUTO) 0.2 x10^3/uL (0.0-0.2); EOSINOPHILS % (AUTO) 2.2 % (0.9-2.9); HEMATOCRIT 32.4 % (42.0-54.0); LYMPHOCYTES # (AUTO) 2.1 X10^3/uL (1.3-2.9); LYMPHOCYTES % (AUTO) 23.5 % (21.0-51.0); MEAN CORPUSCULAR HEMOGLOBIN 29.5 pg (27.0-34.0); MEAN CORPUSCULAR HGB CONC 33.9 g/dL (33.0-35.0); MEAN CORPUSCULAR VOLUME 87.1 fL (80.0-100.0); MEAN PLATELET VOLUME 9.4 fL (7.4-11.0); MONOCYTES % (AUTO) 10.8 % (0.0-13.0); NEUTROPHILS # (AUTO) 5.7 x10^3/uL (2.2-4.8); NEUTROPHILS % (AUTO) 63.3 % (42.0-75.0); PLATELET COUNT 123 X10^3/uL (150.0-450.0); RED CELL DISTRIBUTION WIDTH 15.6 % (11.6-16.5)
== END 2018-12-13 13:15 | disposition home or self-care (01) | DRG 192 ==
LOC: ER 23:40 → ICU 23:40 → OBSVTOIN 12-09 03:31 → ICU 12-09 04:00
PROVIDERS: ADMIT Internal Medicine; ATTEND Internal Medicine
DX: R60.0 Localized edema; M25.561 Pain in right knee; R06.02 Shortness of breath; M25.562 Pain in left knee; M06.09 Rheumatoid arthritis without rheumatoid factor, multiple sites; I11.0 Hypertensive heart disease with heart failure; K21.9 Gastro-esophageal reflux disease without esophagitis; E11.65 Type 2 diabetes mellitus with hyperglycemia; I50.9 Heart failure, unspecified; G25.81 Restless legs syndrome; J44.1 Chronic obstructive pulmonary disease with (acute) exacerbation; F41.8 Other specified anxiety disorders; I25.10 Atherosclerotic heart disease of native coronary artery without angina pectoris; I48.2 Chronic atrial fibrillation
CPT/HCPCS: 36415; 71010; 71045; 73560; 80053; 81001; 83735; 84550; 85025; 87040; 87086; 94640; 96365; 96374; 96375; 97163; 97167; 99231; 99284; A4222; J1650; J1815; J1817; J1940; J2175; J2210; J2920; J3490; J7040; J7060; J7613

== ENCOUNTER 2019-04-11 14:35 | Inpatient (IN) ==
[2019-04-11] MEDS ORDERED: TUSSIONEX PENNKINETIC SUSP PO PRN (16:55)
--- NOTE | 2019-04-11 17:19 | DR.H&P ---
H&P - History & Physical for Day of: H&P Date: 04/11/19 - Chief Complaint Chief Complaint: SOB, WHEEZING, LOWER LEG SWELLING - History of Present Illness History of Present Illness: PT IS 83 WM DIRECT ADMIT FROM DR DEWEY OFFICE WITH COPD EXACERBATION, CHEST CONGESTION AND LOWER EXTREMITY SWELLING. PT HAD TAKE ROUND OF PREDNISONE AND USING CONTINUOUS SUPPLEMENTAL O2 AND USING NEBULIZER WITHOUT IMPROVEMENT. - Past Medical History Past Medical History: Coronary Artery Disease, Hypertension, Diabetes, Anxiety, COPD, PUD, GERD, Arthritis (Rheumatoid) - Past Surgical History Surgical History: Ortho Surgery, Other (PACE MAKER) - Family History Family Medical History: Diabetes Mellitus, Heart Failure, Hypertension - Social History Does patient currently use any type of tobacco product: No Have you used tobacco products in the last 12 months: No Type of Tobacco Use: None Does any household member use tobacco: No Alcohol Use: None Drug Use: None Risks, benefits, and alternatives of opioids discussed: No - Medications Home Medications: codeine Allergy (Verified 09/10/18 15:17) iodine Allergy (Verified 09/10/18 15:17) - Review of Systems Constitutional: Weakness Eyes: No Symptoms Reported ENT: No Symptoms Reported Respiratory: Cough, Shortness of Breath, SOB with Excertion, Pleuritic Pain, Wheezing Cardiovascular: Edema Gastrointestinal: No Symptoms Reported Genitourinary: No Symptoms Reported Musculoskeletal: Leg Pain Skin: No Symptoms Reported Neurological: No Symptoms Reported - Physical Exam Vital Signs: Temperature 98.1 F Pulse Rate [Apical] 85 Respiratory Rate 17 Blood Pressure [Left Arm] 117/63 Blood Pressure [Right Arm] 117/58 Blood Pressure 126/58 O2 Sat by Pulse Oximetry 95 Oriented: Normal Eyes: Normal Ear: Normal Nose: Normal Throat: Normal Respiratory: RLL Diminished, LLL Diminished Cardiovascular: Edema : Normal Auscultation: Bowel Sounds: Normal Palpation: Normal Skin: Decreased Turgur Musculoskeletal: Back:Thoracic, Back:Lumbar Psychiatric: Anxiety Affect: Anxious Speech Pattern: Clear, Appropriate - Assessment/Plan (1) SOB (shortness of breath) Status: Acute Plan: ADMIT, CXR ON ADMISSION. ABG, VERIFY AND RESUME HOME MEDICATIONS. IV ATBX THERAPY, SUPPLEMENTAL O2. BP AND BS CONTROL. SSI THERAPY, IV SOLU MEDROL, RESP THERAPY (2) Bilateral lower extremity edema Status: Acute (3) CHF (congestive heart failure) Status: Acute (4) COPD (chronic obstructive pulmonary disease) Qualifiers: COPD type: COPD with acute exacerbation Qualified Code(s): J44.1 - Chronic obstructive pulmonary disease with (acute) exacerbation Status: Acute (5) Diabetes mellitus Qualifiers: Diabetes mellitus type: type 2 Diabetes mellitus group home insulin use: without intermediate school teacher use Diabetes mellitus complication status: without complication Qualified Code(s): E11.9 - Type 2 diabetes mellitus without complications Status: Acute - Allergies Allergies/Adverse Reactions: Allergies Allergy/AdvReac Type Severity Reaction Status Date / Time codeine Allergy Verified 09/10/18 15:17 iodine Allergy Verified 09/10/18 15:17
[2019-04-11] MEDS ORDERED: NS 1/2 1000 ML IV 1,000 ML IV ONE (17:25)
[2019-04-11] MEDS: ROBITUSSIN DM PO SCH ×2 (17:28→20:44)
[2019-04-11] MEDS: NS 1/2 1000 ML IV 1,000 ML IV SCH (17:32)
[2019-04-11] MEDS: LEVAQUIN PREMIX IV 500 MG 500 MG/100 ML BAG IV SCH (17:35)
[2019-04-11] MEDS ORDERED: M.S. CONTIN 30 MG EXTENDED RELEASE PO PRN (17:36)
[2019-04-11 17:39] LABS: BASOPHILS % (AUTO) 0.4 % (0.2-1.0); EOSINOPHILS # (AUTO) 0.3 x10^3/uL (0.0-0.2); EOSINOPHILS % (AUTO) 3.6 % (0.9-2.9); HEMATOCRIT 31.9 % (42.0-54.0); HEMOGLOBIN 10.5 g/dL (13.5-18.0); LYMPHOCYTES # (AUTO) 1.7 X10^3/uL (1.3-2.9); LYMPHOCYTES % (AUTO) 23.8 % (21.0-51.0); MEAN CORPUSCULAR HEMOGLOBIN 28.1 pg (27.0-34.0); MEAN CORPUSCULAR HGB CONC 32.9 g/dL (33.0-35.0); MEAN CORPUSCULAR VOLUME 85.4 fL (80.0-100.0); MEAN PLATELET VOLUME 8.7 fL (7.4-11.0); MONOCYTES # (AUTO) 0.6 x10^3/uL (0.3-0.8); MONOCYTES % (AUTO) 8.4 % (0.0-13.0); NEUTROPHILS # (AUTO) 4.7 x10^3/uL (2.2-4.8); NEUTROPHILS % (AUTO) 63.8 % (42.0-75.0); PLATELET COUNT 119 X10^3/uL (150.0-450.0); RED BLOOD COUNT 3.73 X10^6/uL (4.7-6.0); RED CELL DISTRIBUTION WIDTH 16.2 % (11.6-16.5); WHITE BLOOD COUNT 7.3 X10^3/uL (3.6-10.0)
[2019-04-11] MEDS ORDERED: DOXAZOSIN 8 MG PO SCH (17:45)
[2019-04-11 17:59] LABS: ALANINE AMINOTRANSFERASE 24 Units/L (12-78); ALBUMIN 3.7 g/dL (3.4-5.0); ALKALINE PHOSPHATASE 64 Units/L (46-116); ASPARTATE AMINO TRANSFERASE 23 Units/L (15-37); BLOOD UREA NITROGEN 18 mg/dL (7-18); CALCIUM 8.9 mg/dL (8.5-10.1); CARBON DIOXIDE 37.4 mmol/L (21-32); CHLORIDE 102 mmol/L (98-107); CREATININE 1.35 mg/dL (0.70-1.30); SODIUM 144 mmol/L (136-145); TOTAL PROTEIN 6.9 g/dL (6.4-8.2); eGFR NON BLACK RACES 53 (>60)
[2019-04-11] MEDS ORDERED: LASIX IVP SCH (18:00)
[2019-04-11 18:07] LABS: ABG BASE EXCESS 14.4 mmol/L (-2.0-2.0)
[2019-04-11 18:08] LABS: ABG HCO3 40.2 mmol/L (22-26)
[2019-04-11 18:12] VITALS: BMI 30.9
[2019-04-11] MEDS: PULMICORT NEB TX 0.5 MG NEB SCH ×2 (18:18→20:48)
[2019-04-11] MEDS ORDERED: K-RIDER 10 MEQ/NS 100 ML 10 MEQ/100 ML BAG IV PRN (19:45)
[2019-04-11] MEDS ORDERED: KLOR-CON PO PRN (19:45)
[2019-04-11] MEDS ORDERED: POTASSIUM CHLORIDE LIQ 20 MEQ UDC PO PRN (19:45)
[2019-04-11] MEDS ORDERED: POTASSIUM CHL 40 MEQ/NS 0.45% 500 ML IV PRN (19:45)
[2019-04-11] MEDS ORDERED: POTASSIUM CHL 60 MEQ/NS 0.45% 500 ML IV PRN (19:45)
[2019-04-11 20:23] LABS: APPEARANCE,URINE CLEAR (CLEAR); BILIRUBIN,URINE NEGATIVE (NEGATIVE); BLOOD/HEMOGLOBIN,URINE NEGATIVE (NEGATIVE); COLOR,URINE YELLOW (YELLOW); GLUCOSE, URINE NEGATIVE (NEGATIVE); KETONES,URINE NEGATIVE (NEGATIVE); LEUKOCYTE ESTERASE ,URINE NEGATIVE (NEGATIVE); NITRITES,URINE NEGATIVE (NEGATIVE); PROTEIN,URINE NEGATIVE (NEGATIVE); UROBILINOGEN,URINE NORMAL (NORMAL)
[2019-04-11] MEDS: ZOSYN VIAL 4.5 GRAMS 4.5 G in NS 100 ML IV + SPIKE MINIBAG* 100 ML IV SCH (20:43)
[2019-04-11] MEDS: REQUIP PO SCH (20:44)
[2019-04-11] MEDS: LIPITOR TAB 20 MG PO SCH (20:44)
[2019-04-11] MEDS: LYRICA CAP 75 mg PO SCH (20:45)
[2019-04-11] MEDS: K-DUR TAB 20 MEQ PO PRN (20:45)
[2019-04-11] MEDS: MAG-OX TAB PO SCH (20:45)
[2019-04-11] MEDS: DUONEB 0.5 MG/3 MG NEB SCH (20:48)
[2019-04-11] MEDS ORDERED: MAGNESIUM OXIDE 400 MG PO SCH (21:00)
[2019-04-11] MEDS ORDERED: PREGABALIN 75 MG PO SCH (21:00)
--- NOTE | 2019-04-11 23:02 | RAD ---
Chest, two views Indication: Pneumonia Comparison: 12/11/2018 Findings: Heart is stable in size. Right-sided pacemaker and abandon left-sided pacemaker leads noted. No acute alveolar infiltrate or effusion is identified. No pneumothorax. Impression: No acute chest process or significant change since prior. Reported By:
[2019-04-12] MEDS: ZOSYN VIAL 4.5 GRAMS 4.5 G in NS 100 ML IV + SPIKE MINIBAG* 100 ML IV SCH ×4 (00:29→21:31)
[2019-04-12] MEDS: DUONEB 0.5 MG/3 MG NEB SCH ×5 (01:15→16:53)
[2019-04-12] MEDS: NORCO 10/325 TAB PO PRN ×2 (02:13→09:13)
[2019-04-12 04:59] LABS: BASOPHILS % (AUTO) 0.3 % (0.2-1.0); EOSINOPHILS # (AUTO) 0.3 x10^3/uL (0.0-0.2); EOSINOPHILS % (AUTO) 3.5 % (0.9-2.9); HEMATOCRIT 28.3 % (42.0-54.0); HEMOGLOBIN 9.4 g/dL (13.5-18.0); LYMPHOCYTES # (AUTO) 1.5 X10^3/uL (1.3-2.9); LYMPHOCYTES % (AUTO) 16.6 % (21.0-51.0); MEAN CORPUSCULAR HEMOGLOBIN 28.3 pg (27.0-34.0); MEAN CORPUSCULAR HGB CONC 33.3 g/dL (33.0-35.0); MEAN CORPUSCULAR VOLUME 84.9 fL (80.0-100.0); MONOCYTES # (AUTO) 0.7 x10^3/uL (0.3-0.8); MONOCYTES % (AUTO) 8.2 % (0.0-13.0); NEUTROPHILS # (AUTO) 6.3 x10^3/uL (2.2-4.8); NEUTROPHILS % (AUTO) 71.4 % (42.0-75.0); PLATELET COUNT 99 X10^3/uL (150.0-450.0); RED BLOOD COUNT 3.33 X10^6/uL (4.7-6.0); RED CELL DISTRIBUTION WIDTH 15.8 % (11.6-16.5); WHITE BLOOD COUNT 8.8 X10^3/uL (3.6-10.0)
[2019-04-12 05:12] LABS: ALANINE AMINOTRANSFERASE 21 Units/L (12-78); ALKALINE PHOSPHATASE 51 Units/L (46-116); ASPARTATE AMINO TRANSFERASE 20 Units/L (15-37); BLOOD UREA NITROGEN 15 mg/dL (7-18); CALCIUM 8.2 mg/dL (8.5-10.1); CARBON DIOXIDE 34.1 mmol/L (21-32); CHLORIDE 103 mmol/L (98-107); COR NA(FOR HYPERGLY) 142 mmol/L (136-145); CREATININE 1.26 mg/dL (0.70-1.30); SODIUM 142 mmol/L (136-145); TOTAL PROTEIN 5.8 g/dL (6.4-8.2); eGFR NON BLACK RACES 58 (>60)
[2019-04-12] MEDS: MICRO K EXTEN CAP 10 MEQ PO PRN ×2 (05:43→16:54)
[2019-04-12] MEDS: LASIX IVP SCH ×2 (06:06→16:58)
[2019-04-12] MEDS: CARDURA PO SCH (08:46)
[2019-04-12] MEDS: LEVAQUIN PREMIX IV 500 MG 500 MG/100 ML BAG IV SCH (08:48)
[2019-04-12] MEDS: LYRICA CAP 75 mg PO SCH ×2 (08:49→20:01)
[2019-04-12] MEDS: ZYLOPRIM PO SCH (08:49)
[2019-04-12] MEDS: MAG-OX TAB PO SCH ×2 (08:50→20:02)
[2019-04-12] MEDS: ROBITUSSIN DM PO SCH ×4 (08:51→20:03)
[2019-04-12] MEDS: REQUIP PO SCH ×2 (08:51→20:02)
[2019-04-12] MEDS: NexIUM PO SCH (08:51)
[2019-04-12] MEDS ORDERED: BUPROPION HCL 75 MG PO SCH (09:00)
[2019-04-12] MEDS: PULMICORT NEB TX 0.5 MG NEB SCH ×2 (09:15→20:55)
[2019-04-12] MEDS: SOLU-Medrol 125 MG VIAL IVP SCH ×3 (12:10→21:31)
[2019-04-12] MEDS: M.S. CONTIN 30 MG EXTENDED RELEASE PO SCH ×2 (12:22→21:18)
[2019-04-12] MEDS: WELLBUTRIN IR (PLAIN) PO SCH (13:00)
[2019-04-12] MEDS: NS 1/2 1000 ML IV 1,000 ML IV SCH ×2 (13:25→20:03)
[2019-04-12] MEDS ORDERED: NS 1/2 1000 ML IV 1,000 ML IV ONE (13:35)
[2019-04-12] MEDS: HumuLIN R SUBCUT PRN ×2 (17:00→21:31)
[2019-04-12] MEDS ORDERED: SNACK - Diabetic Appropriate PO SCH (20:00)
[2019-04-12] MEDS: SNACK - Diabetic Appropriate PO SCH (20:00)
[2019-04-12] MEDS: LIPITOR TAB 20 MG PO SCH (20:02)
[2019-04-12] MEDS: Atrovent NEB TX 0.02% NEB SCH (20:59)
[2019-04-13] MEDS ORDERED: RESTORIL CAP 15 MG PO ONE (00:37)
[2019-04-13] MEDS: RESTORIL CAP 15 MG PO PRN ×2 (01:00→22:23)
[2019-04-13] MEDS: Atrovent NEB TX 0.02% NEB SCH ×6 (01:03→20:00)
[2019-04-13] MEDS: ZOSYN VIAL 4.5 GRAMS 4.5 G in NS 100 ML IV + SPIKE MINIBAG* 100 ML IV SCH ×3 (05:13→21:11)
[2019-04-13 05:20] LABS: BASOPHILS % (AUTO) 0 % (0.2-1.0); HEMATOCRIT 29.3 % (42.0-54.0); HEMOGLOBIN 9.8 g/dL (13.5-18.0); LYMPHOCYTES # (AUTO) 0.5 X10^3/uL (1.3-2.9); LYMPHOCYTES % (AUTO) 4.5 % (21.0-51.0); MEAN CORPUSCULAR HEMOGLOBIN 28.2 pg (27.0-34.0); MEAN CORPUSCULAR HGB CONC 33.4 g/dL (33.0-35.0); MEAN CORPUSCULAR VOLUME 84.4 fL (80.0-100.0); MEAN PLATELET VOLUME 9.5 fL (7.4-11.0); MONOCYTES # (AUTO) 0.1 x10^3/uL (0.3-0.8); MONOCYTES % (AUTO) 1.1 % (0.0-13.0); NEUTROPHILS # (AUTO) 9.6 x10^3/uL (2.2-4.8); NEUTROPHILS % (AUTO) 94.4 % (42.0-75.0); PLATELET COUNT 106 X10^3/uL (150.0-450.0); RED BLOOD COUNT 3.47 X10^6/uL (4.7-6.0); RED CELL DISTRIBUTION WIDTH 16.2 % (11.6-16.5); WHITE BLOOD COUNT 10.2 X10^3/uL (3.6-10.0)
[2019-04-13] MEDS: HumuLIN R SUBCUT PRN (05:21)
[2019-04-13 05:47] LABS: ALANINE AMINOTRANSFERASE 22 Units/L (12-78); ALBUMIN 3.1 g/dL (3.4-5.0); ALKALINE PHOSPHATASE 54 Units/L (46-116); ASPARTATE AMINO TRANSFERASE 19 Units/L (15-37); BLOOD UREA NITROGEN 14 mg/dL (7-18); CALCIUM 8.4 mg/dL (8.5-10.1); CARBON DIOXIDE 32.8 mmol/L (21-32); CHLORIDE 100 mmol/L (98-107); COR CA(FOR HYPOALB) 9.1 mg/dL (8.5-10.1); COR NA(FOR HYPERGLY) 142 mmol/L (136-145); CREATININE 1.33 mg/dL (0.70-1.30); SODIUM 140 mmol/L (136-145); TOTAL PROTEIN 6.2 g/dL (6.4-8.2); eGFR NON BLACK RACES 54 (>60)
[2019-04-13 05:55] LABS: PLATELET MORPHOLOGY COMMENT NORMAL (NORMAL)
[2019-04-13] MEDS: LASIX IVP SCH ×2 (06:00→17:15)
[2019-04-13] MEDS ORDERED: NS 1/2 1000 ML IV 1,000 ML IV ONE (08:24)
[2019-04-13] MEDS: NS 1/2 1000 ML IV 1,000 ML IV SCH ×2 (08:27→12:52)
[2019-04-13] MEDS: LEVAQUIN PREMIX IV 500 MG 500 MG/100 ML BAG IV SCH (08:28)
[2019-04-13] MEDS: WELLBUTRIN IR (PLAIN) PO SCH (08:28)
[2019-04-13] MEDS: CARDURA PO SCH (08:30)
[2019-04-13] MEDS: ROBITUSSIN DM PO SCH ×4 (08:30→21:12)
[2019-04-13] MEDS: REQUIP PO SCH ×2 (08:31→21:12)
[2019-04-13] MEDS: NexIUM PO SCH (08:32)
[2019-04-13] MEDS: ZYLOPRIM PO SCH (08:32)
[2019-04-13] MEDS: MAG-OX TAB PO SCH ×2 (08:32→21:13)
[2019-04-13] MEDS: LYRICA CAP 75 mg PO SCH ×2 (08:33→21:12)
[2019-04-13] MEDS: PULMICORT NEB TX 0.5 MG NEB SCH ×2 (08:56→20:00)
[2019-04-13] MEDS: M.S. CONTIN 30 MG EXTENDED RELEASE PO SCH ×2 (09:27→21:13)
--- NOTE | 2019-04-13 09:30 | RAD ---
HISTORY: Shortness of breath, COPD. Prior history of hypertension, diabetes, COPD and coronary artery disease. Prior surgical history of angiography with stents, pacemaker. Study: Single-view chest Comparison: 04/11/2019. Findings: Right-sided pacemaker is present with intact leads. There are abandoned pacemaker leads on the left. Trachea is midline. Heart size is upper normal. Lungs and pleural spaces are clear. No CHF, infiltrate or pleural fluid is seen. Osseous structures are intact. IMPRESSION: No acute cardiopulmonary disease. Reported By:
[2019-04-13] MEDS ORDERED: MILK OF MAGNESIA PO PRN (09:32)
--- NOTE | 2019-04-13 11:25 | RAD ---
HISTORY: CONSTIPATION. PRIOR HISTORY OF HYPERTENSION, DIABETES, COPD AND CAD. Study: KUB Comparison: 01/21/2018. Findings: THE BOWEL GAS PATTERN IS NONSPECIFIC. NO EVIDENCE OF SIGNIFICANT FECAL BURDEN IS SEEN. THERE IS NO EVIDENCE OF BOWEL OBSTRUCTION. NO OPAQUE STONE IS SEEN. THERE IS MILD MID LUMBAR SCOLIOSIS AND SPONDYLOSIS. IMPRESSION: No significant fecal burden is seen. There is no evidence of bowel obstruction. Reported By:
[2019-04-13] MEDS: PROTONIX INJ 40 MG VIAL IVP SCH (14:37)
[2019-04-13] MEDS: COLACE CAP 100 MG PO SCH (21:12)
[2019-04-13] MEDS: LIPITOR TAB 20 MG PO SCH (21:12)
[2019-04-13] MEDS: MILK OF MAGNESIA PO SCH (21:13)
[2019-04-13] MEDS: SNACK - Diabetic Appropriate PO SCH (21:14)
[2019-04-14] MEDS: Atrovent NEB TX 0.02% NEB SCH ×6 (01:16→20:43)
[2019-04-14] MEDS ORDERED: NS 1/2 1000 ML IV 1,000 ML IV ONE (05:04)
[2019-04-14 05:12] LABS: BASOPHILS # (AUTO) 0.1 X10^3/uL (0.0-0.1); BASOPHILS % (AUTO) 0.6 % (0.2-1.0); EOSINOPHILS % (AUTO) 0.2 % (0.9-2.9); HEMATOCRIT 29.4 % (42.0-54.0); HEMOGLOBIN 9.6 g/dL (13.5-18.0); LYMPHOCYTES # (AUTO) 1.7 X10^3/uL (1.3-2.9); LYMPHOCYTES % (AUTO) 10.7 % (21.0-51.0); MEAN CORPUSCULAR HEMOGLOBIN 27.9 pg (27.0-34.0); MEAN CORPUSCULAR HGB CONC 32.7 g/dL (33.0-35.0); MEAN CORPUSCULAR VOLUME 85.3 fL (80.0-100.0); MEAN PLATELET VOLUME 9.4 fL (7.4-11.0); MONOCYTES # (AUTO) 0.8 x10^3/uL (0.3-0.8); MONOCYTES % (AUTO) 5.2 % (0.0-13.0); NEUTROPHILS % (AUTO) 83.3 % (42.0-75.0); PLATELET COUNT 115 X10^3/uL (150.0-450.0); RED BLOOD COUNT 3.45 X10^6/uL (4.7-6.0); RED CELL DISTRIBUTION WIDTH 15.9 % (11.6-16.5)
[2019-04-14 05:16] LABS: WHITE BLOOD COUNT 16.5 X10^3/uL (3.6-10.0)
[2019-04-14 05:32] LABS: PLATELET MORPHOLOGY COMMENT NORMAL (NORMAL)
[2019-04-14 05:39] LABS: ALANINE AMINOTRANSFERASE 20 Units/L (12-78); ALBUMIN 3.1 g/dL (3.4-5.0); ALKALINE PHOSPHATASE 49 Units/L (46-116); ASPARTATE AMINO TRANSFERASE 21 Units/L (15-37); BLOOD UREA NITROGEN 23 mg/dL (7-18); CALCIUM 8.5 mg/dL (8.5-10.1); CARBON DIOXIDE 33.7 mmol/L (21-32); CHLORIDE 102 mmol/L (98-107); COR CA(FOR HYPOALB) 9.2 mg/dL (8.5-10.1); COR NA(FOR HYPERGLY) 141 mmol/L (136-145); CREATININE 1.38 mg/dL (0.70-1.30); SODIUM 141 mmol/L (136-145); TOTAL PROTEIN 6.1 g/dL (6.4-8.2); eGFR NON BLACK RACES 52 (>60)
[2019-04-14] MEDS: NS 1/2 1000 ML IV 1,000 ML IV SCH ×2 (05:47→18:46)
[2019-04-14] MEDS: ZOSYN VIAL 4.5 GRAMS 4.5 G in NS 100 ML IV + SPIKE MINIBAG* 100 ML IV SCH ×3 (06:03→21:10)
[2019-04-14] MEDS: LASIX IVP SCH ×2 (06:04→19:01)
[2019-04-14] MEDS: K-DUR TAB 20 MEQ PO PRN (06:36)
[2019-04-14] MEDS: LYRICA CAP 75 mg PO SCH ×2 (09:17→21:10)
[2019-04-14] MEDS: MAG-OX TAB PO SCH ×2 (09:17→21:10)
[2019-04-14] MEDS: M.S. CONTIN 30 MG EXTENDED RELEASE PO SCH ×2 (09:17→21:11)
[2019-04-14] MEDS: ROBITUSSIN DM PO SCH ×4 (09:20→21:10)
[2019-04-14] MEDS: PROTONIX INJ 40 MG VIAL IVP SCH (09:20)
[2019-04-14] MEDS: ZYLOPRIM PO SCH (09:20)
[2019-04-14] MEDS: REQUIP PO SCH ×2 (09:20→21:10)
[2019-04-14] MEDS: CARDURA PO SCH (09:20)
[2019-04-14] MEDS: MILK OF MAGNESIA PO SCH ×4 (09:21→21:11)
[2019-04-14] MEDS: LEVAQUIN PREMIX IV 250 MG 250 MG/50 ML BAG IV SCH (09:21)
[2019-04-14] MEDS: PULMICORT NEB TX 0.5 MG NEB SCH ×2 (09:53→20:44)
--- NOTE | 2019-04-14 12:29 | RAD ---
HISTORY: COPD. Prior history of hypertension, diabetes, COPD and coronary artery disease. Study: Single-view chest, done portably Comparison: 04/13/2019. Findings: Right-sided pacemaker is present with intact appearing leads. Abandoned pacemaker leads are seen on the left. The trachea is midline. Heart size is upper normal. Lungs appear normally inflated. Increased interstitial markings are present involving the left lung base, perhaps representing linear foci of subsegmental atelectasis or scarring. No dense consolidation, CHF, pleural fluid or pneumothorax is seen. Osseous structures are intact. IMPRESSION: Linear foci of subsegmental atelectasis or scarring noted in the left lung base. No consolidation or CHF is seen. Upper normal heart size. Postsurgical changes as noted above. Reported By:
--- NOTE | 2019-04-14 13:10 | PCM.PROG ---
Progress Note - Progress Note for Day of Date of Exam: 04/14/19 - Subjective Subjective: The patient is an 83-year-old white male who was admitted with chronic obstructive pulmonary disease exacerbation and suspected congestive heart failure exacerbation. He has been treated with IV Lasix, supplemental oxygen, and respiratory therapy along with IV antibiotics and steroids. Today, the patient reports increased weakness and abdominal distension. The patient reports that he feels like he is constipated. Pt given bowel regimen and reports bm x1, with slight improvement in abd distention. - Past Medical Family Social History Past Med/Fam/Surg Hx: No changes since H&P Allergies: Allergies codeine Allergy (Verified 09/10/18 15:17) iodine Allergy (Verified 09/10/18 15:17) - Review of Systems ROS: No change since H&P - Vital Signs and I&O's Vital Signs: Temperature 97.8 F Pulse Rate [Apical] 80 Pulse Rate 80 Respiratory Rate 16 Blood Pressure [Left Arm] 164/81 Blood Pressure [Right Arm] 117/58 Blood Pressure 129/59 O2 Sat by Pulse Oximetry 100 Intake and Output: Intake & Output 04/12/19 04/13/19 04/14/19 04/15/19 11:59 11:59 11:59 11:59 Intake Total 1647 / 1647 4056 / 4056 2137 / 2137 Output Total 1750 / 1750 3450 / 3450 3400 / 3400 Balance -103 / -103 606 / 606 -1263 / -1263 - Physical Exam Oriented: Normal Eyes: Normal Ear: Normal Nose: Normal Throat: Normal Respiratory: Diminished, Wheezes Cardiovascular: Edema : Normal Auscultation: Bowel Sounds: Normal Skin: Decreased Turgur Musculoskeletal: Back:Thoracic, Back:Lumbar Psychiatric: Anxiety Affect: Anxious Speech Pattern: Clear, Appropriate - Laboratory and Diagnostics Result Diagrams: 04/14/19 03:58 04/14/19 03:58 Labs: 04/11/19 17:27 Blood Blood Culture - Preliminary 04/11/19 17:14 Blood Blood Culture - Preliminary 04/11/19 18:30 Sputum - Expectorated Sputum Sputum Culture - Final 04/11/19 18:30 Sputum - Expectorated Sputum - Final Laboratory WBC 16.5 X10^3/uL (3.6-10.0) H 04/14/19 03:58 RBC 3.45 X10^6/uL (4.7-6.0) L 04/14/19 03:58 Hgb 9.6 g/dL (13.5-18.0) L 04/14/19 03:58 Hct 29.4 % (42.0-54.0) L 04/14/19 03:58 MCV 85.3 fL (80.0-100.0) 04/14/19 03:58 MCH 27.9 pg (27.0-34.0) 04/14/19 03:58 MCHC 32.7 g/dL (33.0-35.0) L 04/14/19 03:58 RDW 15.9 % (11.6-16.5) 04/14/19 03:58 Plt Count 115 X10^3/uL (150.0-450.0) L 04/14/19 03:58 Plt Count Comment Decreased (ADEQUATE) 04/14/19 03:58 MPV 9.4 fL (7.4-11.0) 04/14/19 03:58 Neut % (Auto) 83.3 % (42.0-75.0) H 04/14/19 03:58 Lymph % (Auto) 10.7 % (21.0-51.0) L 04/14/19 03:58 Moore % (Auto) 5.2 % (0.0-13.0) 04/14/19 03:58 Eos % (Auto) 0.2 % (0.9-2.9) L 04/14/19 03:58 Baso % (Auto) 0.6 % (0.2-1.0) 04/14/19 03:58 Neut # (Auto) 13.0 x10^3/uL (2.2-4.8) H 04/14/19 03:58 Lymph # (Auto) 1.7 X10^3/uL (1.3-2.9) 04/14/19 03:58 Moore # (Auto) 0.8 x10^3/uL (0.3-0.8) 04/14/19 03:58 Eos # (Auto) 0.0 x10^3/uL (0.0-0.2) 04/14/19 03:58 Baso # (Auto) 0.1 X10^3/uL (0.0-0.1) 04/14/19 03:58 Absolute Nucleated RBC 0.0 /100WBC 04/14/19 03:58 Total Counted 100 04/13/19 03:51 Neutrophils % (Manual) 93 % (39-76) H 04/13/19 03:51 Lymphocytes % (Manual) 7 % (13-43) L 04/13/19 03:51 Plt Morphology Comment Normal (NORMAL) 04/14/19 03:58 RBC Morphology Normal (NORMAL) 04/14/19 03:58 Sample Site Right brachial 04/11/19 18:00 ABG pH 7.480 (7.35-7.45) H 04/11/19 18:00 ABG pCO2 54.0 mmHg (35.0-45.0) H* 04/11/19 18:00 ABG pO2 65.0 mmHg (80.0-100.0) L 04/11/19 18:00 ABG HCO3 40.2 mmol/L (22-26) H* 04/11/19 18:00 ABG O2 Saturation 94.0 % (90-100) 04/11/19 18:00 ABG Base Excess 14.4 mmol/L (-2.0-2.0) H 04/11/19 18:00 Romain Test Na 04/11/19 18:00 A-a Gradient 17.0 mmHg 04/11/19 18:00 FiO2 21.0 04/11/19 18:00 Blood Gas Comments Marianne well aw 04/11/19 18:00 Sodium 141 mmol/L (136-145) 04/14/19 03:58 Corrected Sodium 141 mmol/L (136-145) 04/14/19 03:58 Potassium 3.7 mmol/L (3.5-5.1) 04/14/19 03:58 Chloride 102 mmol/L (98-107) 04/14/19 03:58 Carbon Dioxide 33.7 mmol/L (21-32) H 04/14/19 03:58 BUN 23 mg/dL (7-18) H 04/14/19 03:58 Creatinine 1.38 mg/dL (0.70-1.30) H 04/14/19 03:58 Est GFR (MDRD) Af Amer > 60 (>60) 04/14/19 03:58 Est GFR (MDRD) Non-Af 52 (>60) L 04/14/19 03:58 Glucose 118 mg/dL (65-99) H 04/14/19 03:58 POC Glucose (mg/dL) 73 mg/dL (65-99) 04/14/19 11:52 Calcium 8.5 mg/dL (8.5-10.1) 04/14/19 03:58 Corrected Calcium 9.2 mg/dL (8.5-10.1) 04/14/19 03:58 Magnesium 1.9 mg/dL (1.7-2.9) 04/11/19 17:14 Total Bilirubin 0.40 mg/dL (0.2-1.0) 04/14/19 03:58 AST 21 Units/L (15-37) 04/14/19 03:58 ALT 20 Units/L (12-78) 04/14/19 03:58 Alkaline Phosphatase 49 Units/L (46-116) 04/14/19 03:58 Total Protein 6.1 g/dL (6.4-8.2) L 04/14/19 03:58 Albumin 3.1 g/dL (3.4-5.0) L 04/14/19 03:58 Globulin 3.0 g/dL (2.5-4.5) 04/14/19 03:58 Albumin/Globulin Ratio 1.0 Ratio (1.1-2.1) L 04/14/19 03:58 Specimen Type Clean catch urine 04/11/19 20:17 Urine Color Yellow (YELLOW) 04/11/19 20:17 Urine Appearance Clear (CLEAR) 04/11/19 20:17 Urine pH 8.0 (5.0 - 8.0) 04/11/19 20:17 Ur Specific [place] 1.015 (1.000-1.030) 04/11/19 20:17 Urine Protein Negative (NEGATIVE) 04/11/19 20:17 Urine Glucose (UA) Negative (NEGATIVE) 04/11/19 20:17 Urine Ketones Negative (NEGATIVE) 04/11/19 20:17 Urine Occult Blood Negative (NEGATIVE) 04/11/19 20:17 Urine Nitrite Negative (NEGATIVE) 04/11/19 20:17 Urine Bilirubin Negative (NEGATIVE) 04/11/19 20:17 Urine Urobilinogen Normal (NORMAL) 04/11/19 20:17 Ur Leukocyte Esterase Negative (NEGATIVE) 04/11/19 20:17 - Plan (1) SOB (shortness of breath) Status: Acute Plan: REPEAT CXR THIS AM. ABG OBTAINED,. IV ATBX THERAPY, SUPPLEMENTAL O2. BP AND BS CONTROL, IV LASIX. 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
[2019-04-14] MEDS: SNACK - Diabetic Appropriate PO SCH (20:23)
[2019-04-14] MEDS: COLACE CAP 100 MG PO SCH (21:10)
[2019-04-14] MEDS: LIPITOR TAB 20 MG PO SCH (21:11)
[2019-04-14] MEDS: RESTORIL CAP 15 MG PO PRN (22:45)
[2019-04-15] MEDS: Atrovent NEB TX 0.02% NEB SCH ×4 (00:32→12:09)
[2019-04-15] MEDS ORDERED: NS 1/2 1000 ML IV 1,000 ML IV ONE (03:08)
[2019-04-15] MEDS: NS 1/2 1000 ML IV 1,000 ML IV SCH ×2 (03:13→05:00)
[2019-04-15] MEDS: ZOSYN VIAL 4.5 GRAMS 4.5 G in NS 100 ML IV + SPIKE MINIBAG* 100 ML IV SCH (05:00)
[2019-04-15 05:20] LABS: BASOPHILS % (AUTO) 0.4 % (0.2-1.0); EOSINOPHILS # (AUTO) 0.4 x10^3/uL (0.0-0.2); EOSINOPHILS % (AUTO) 3.8 % (0.9-2.9); HEMOGLOBIN 10.2 g/dL (13.5-18.0); LYMPHOCYTES # (AUTO) 2.6 X10^3/uL (1.3-2.9); LYMPHOCYTES % (AUTO) 24.9 % (21.0-51.0); MEAN CORPUSCULAR HEMOGLOBIN 28.3 pg (27.0-34.0); MEAN CORPUSCULAR HGB CONC 32.8 g/dL (33.0-35.0); MEAN CORPUSCULAR VOLUME 86.2 fL (80.0-100.0); MEAN PLATELET VOLUME 9.4 fL (7.4-11.0); MONOCYTES # (AUTO) 0.7 x10^3/uL (0.3-0.8); MONOCYTES % (AUTO) 7.2 % (0.0-13.0); NEUTROPHILS # (AUTO) 6.6 x10^3/uL (2.2-4.8); NEUTROPHILS % (AUTO) 63.7 % (42.0-75.0); PLATELET COUNT 111 X10^3/uL (150.0-450.0); RED CELL DISTRIBUTION WIDTH 16.2 % (11.6-16.5); WHITE BLOOD COUNT 10.3 X10^3/uL (3.6-10.0)
[2019-04-15 05:28] LABS: ALANINE AMINOTRANSFERASE 20 Units/L (12-78); ALKALINE PHOSPHATASE 50 Units/L (46-116); ASPARTATE AMINO TRANSFERASE 16 Units/L (15-37); BLOOD UREA NITROGEN 26 mg/dL (7-18); CALCIUM 8.3 mg/dL (8.5-10.1); CARBON DIOXIDE 38.5 mmol/L (21-32); CHLORIDE 100 mmol/L (98-107); COR CA(FOR HYPOALB) 9.1 mg/dL (8.5-10.1); CREATININE 1.59 mg/dL (0.70-1.30); SODIUM 141 mmol/L (136-145); eGFR NON BLACK RACES 44 (>60)
[2019-04-15] MEDS: LASIX IVP SCH (06:34)
[2019-04-15] MEDS: PULMICORT NEB TX 0.5 MG NEB SCH (08:41)
[2019-04-15] MEDS: LEVAQUIN PREMIX IV 250 MG 250 MG/50 ML BAG IV SCH (09:43)
[2019-04-15] MEDS: REQUIP PO SCH (09:44)
[2019-04-15] MEDS: ROBITUSSIN DM PO SCH (09:44)
[2019-04-15] MEDS: M.S. CONTIN 30 MG EXTENDED RELEASE PO SCH (09:45)
[2019-04-15] MEDS: ZYLOPRIM PO SCH (09:46)
[2019-04-15] MEDS: MAG-OX TAB PO SCH (09:46)
[2019-04-15] MEDS: PROTONIX INJ 40 MG VIAL IVP SCH (09:46)
[2019-04-15] MEDS: LYRICA CAP 75 mg PO SCH (09:46)
[2019-04-15] MEDS: CARDURA PO SCH (09:46)
[2019-04-15] MEDS: MILK OF MAGNESIA PO SCH (09:47)
[2019-04-15 11:45] VITALS: BP 150/63
== END 2019-04-15 11:45 | disposition home or self-care (01) | DRG 192 ==
LOC: ICU
PROVIDERS: ADMIT Internal Medicine; ATTEND Internal Medicine
DX: K21.9 Gastro-esophageal reflux disease without esophagitis; M51.36 Other intervertebral disc degeneration, lumbar region; R06.02 Shortness of breath; R60.0 Localized edema; J44.1 Chronic obstructive pulmonary disease with (acute) exacerbation; E11.65 Type 2 diabetes mellitus with hyperglycemia; D72.828 Other elevated white blood cell count; R26.89 Other abnormalities of gait and mobility; F41.8 Other specified anxiety disorders; I25.10 Atherosclerotic heart disease of native coronary artery without angina pectoris; I10 Essential (primary) hypertension
CPT/HCPCS: 36415; 36600; 71010; 71020; 71045; 71046; 74000; 74018; 80053; 81003; 82803; 83735; 85025; 87040; 87070; 87205; 94640; 97110; 97112; 97116; 97162; A4222; C9113; G0378; J1815; J1940; J1956; J2543; J2930; J7050; J7620; J7626; J7644

== ENCOUNTER 2019-07-18 17:23 | Inpatient (IN) ==
[2019-07-18 18:13] LABS: ALANINE AMINOTRANSFERASE 27 Units/L (12-78); ALBUMIN 3.6 g/dL (3.4-5.0); ALKALINE PHOSPHATASE 53 Units/L (46-116); ASPARTATE AMINO TRANSFERASE 32 Units/L (15-37); BLOOD UREA NITROGEN 22 mg/dL (7-18); CALCIUM 8.5 mg/dL (8.5-10.1); CARBON DIOXIDE 32.4 mmol/L (21-32); CHLORIDE 100 mmol/L (98-107); COR NA(FOR HYPERGLY) 140 mmol/L (136-145); CREATININE 1.58 mg/dL (0.70-1.30); SODIUM 139 mmol/L (136-145); TOTAL PROTEIN 6.3 g/dL (6.4-8.2); eGFR NON BLACK RACES 45 (>60)
[2019-07-18 18:19] LABS: BASOPHILS % (AUTO) 0.2 % (0.2-1.0); EOSINOPHILS # (AUTO) 0.4 x10^3/uL (0.0-0.2); EOSINOPHILS % (AUTO) 4.2 % (0.9-2.9); HEMATOCRIT 30.9 % (42.0-54.0); HEMOGLOBIN 10.1 g/dL (13.5-18.0); LYMPHOCYTES # (AUTO) 0.9 X10^3/uL (1.3-2.9); MEAN CORPUSCULAR HEMOGLOBIN 27.4 pg (27.0-34.0); MEAN CORPUSCULAR HGB CONC 32.9 g/dL (33.0-35.0); MEAN CORPUSCULAR VOLUME 83.3 fL (80.0-100.0); MEAN PLATELET VOLUME 8.3 fL (7.4-11.0); MONOCYTES # (AUTO) 0.7 x10^3/uL (0.3-0.8); MONOCYTES % (AUTO) 7.9 % (0.0-13.0); NEUTROPHILS # (AUTO) 6.6 x10^3/uL (2.2-4.8); NEUTROPHILS % (AUTO) 76.7 % (42.0-75.0); PLATELET COUNT 112 X10^3/uL (150.0-450.0); RED CELL DISTRIBUTION WIDTH 17.7 % (11.6-16.5); WHITE BLOOD COUNT 8.6 X10^3/uL (3.6-10.0)
[2019-07-18 18:20] LABS: LACTIC ACID 1.7 mmol/L (0.4-2.0)
--- NOTE | 2019-07-18 18:53 | DR.EXTPAIN ---
HPI Time seen Time Seen by Provider: 07/18/19 18:53 PCP Primary Care Physician: nanette HPI Comment HPI Comment: PATIENT IS 84YR OLD WHITE MALE IN ER WITH INCREASING SOB AND CONGESTION. PATIENT IS COUGHING AND HAVING CONGESTION. NO FEVER. HE IS CONFUSED. PATIENT HAVE HISTORY OF COPD, HYPERTENSION AND DM AND CAD. RELATIVES SAID SIMILAR EPISODES IN THE PAST RELATED TO RESPIRATORY INSUFFICIENCY. SWELLING OF ESTREMITIES THAT IS PROGRESSIVE ONSET. Complaint/Symptoms Chief Complaint Doctor Comments: AMS, AND SOB WITH WHEEZING SINCE THIS AM. Chief Complaint:: ems stated they were called due to pt having altered mental status and coughing and wheezing. neighbors at the scene stated he has been having altered mental status since this morning Nurses notes reviewed Nurses Notes Review: Yes Source History Provided: EMS Mode of arrival Mode of Arrival: EMS Timing Onset of Chief Complaint: 07/18/19 Context History of: Arthritis Associated signs and symptoms Associated Signs and Symptoms: Weakness, Cough and Shortness of Breath PMH PMH Past Medical History: Yes Past Medical History: Anxiety, Arthritis, COPD, Coronary Artery Disease, Diabetes, GERD, Hypertension and PUD Past Surgical History: Yes Surgical History: Tonsillectomy Family History History of Family Medical Conditions: Yes Family Medical History: Cancer Social History Does patient currently use any type of tobacco product: No Have you used tobacco products in the last 12 months: No Type of Tobacco Use: None Does any household member use tobacco: No Alcohol Use: None Do you use any recreational Drugs:: No Lives With: Family Lives Where: Home infectious screening In the last 2 months have you had wt loss of >10#?: NO Have you had fever, night sweats or hemotysis?: No Have you traveled outside the country in the last 6 months?: No Isolation: Standard ROS Review of Systems Constitutional: No Symptoms Reported, Weakness and Fatigue; negative Chills and Fever Eyes: No Symptoms Reported and See HPI; negative Eye Pain, Tearing and Discharge ENTM: No Symptoms Reported, See HPI, Nose Discharge and Nose Congestion Respiratoy: No Symptoms Reported, See HPI, Moist Cough, Orthopnea, Short of Breath and Wheezing; negative Hemoptysis Cardiovascular: No Symptoms Reported, See HPI and Edema Gastrointestinal/Abdominal: No Symptoms Reported and See HPI; negative Diarrhea, Nausea and Vomiting Genitourinary: No Symptoms Reported, See HPI and Hematuria Neurological: No Symptoms Reported, See HPI and Weakness Musculoskeletal: No Symptoms Reported, See HPI, Back Pain, Joint Swelling and Muscle Pain Integumentary: No Symptoms Reported, See HPI, Dryness and Other (EDEMA OF EXTREMIRIES.); negative Change in Color, Rash and Juandice Hematologic/Lymphatic: No Symptoms Reported, See HPI and Easy Bruising; negative Swollen Glands Endocrine: No Symptoms Reported; negative Increased Thirst and Increased Urine Psychiatric: No Symptoms Reported and See HPI All Other Systems: Reviewed and Negative PE Vital Signs Vitals: Temperature 98.9 F Pulse Rate [Apical] 82 Pulse Rate 87 Respiratory Rate 18 Blood Pressure [Left Arm] 114/72 Blood Pressure [Right Arm] 117/58 Blood Pressure 115/59 O2 Sat by Pulse Oximetry 100 General Limitations: Altered Mental Status General Appearance: Alert and In Distress Head Head Exam: Normal Inspection and Atraumatic Eyes Eye exam: Normal Appearance and PERRL; negative Scleral Icterus and Conjunctival Injection ENT ENT Exam: Normal Exam, Normal Oropharynx, Normal External Ear Exam and TM's Normal Bilaterally Neck Neck Exam: Normal Inspection and Trachea Midline; negative Tenderness and Lymphadenopathy Chest Chest Inspection: Symmetric Chest Wall Rise; negative Tenderness Respiratory Respiratory Exam: Accessory Muscle Use, Prolonged Expiratory Phase and Respiratory Distress; negative Chest Wall Tenderness Respiratory Exam: Bilateral: Wheezing and Bilateral: Rhonchi, Upper: Wheezing and Lower: Wheezing and Lower: Rhonchi Cardiovascular Cardiovascular Exam: Regular Rate, Normal Rhythm, Normal Heart Sounds and +S3; negative Systolic Murmur and Diastolic Murmur Abdominal Exam Abdominal Exam: Normal Inspection, Normal Bowel Sounds and Soft; negative Tenderness Extremities Extremities Exam: Edema; negative Tenderness and Calf Tenderness Back Back Exam: negative (R) CVA Tenderness and (L) CVA Tenderness Neurological Neurological Exam: Alert; negative CN II-XII Intact Psychiatric Psychiatric Exam: Normal Affect and Anxious Skin Skin Exam: negative Normal Color MDM Differential Diagnosis Differential Diagnosis: Other (SOB, CHF, COPD EXACERBATION, CONFUSION, CVA, TIA, MS, PNEUMONIA.) COURSE Treatment Treatment: SEE ORDERS. DUO NEB, LASIX IV 40MG. Reevaluation 1st: Improved (SLIGH IMPROVEMENT SOB WITH OXYGEN.) Consultation Consultation Comments: DISCUSSED PATIENT WITH DR. CUNNINGHAM AND HE WILL ADMIT PATIENT. Education/Counseling Education/Counseling: Patient and Family Educated On: Diagnosis ROR Labs Reviewed Laboratory Results Reviewed?: Yes Result Diagrams: 07/29/19 04:56 07/29/19 04:56 Laboratory: WBC 8.6 X10^3/uL (3.6-10.0) 07/18/19 18:10 RBC 3.70 X10^6/uL (4.7-6.0) L 07/18/19 18:10 Hgb 10.1 g/dL (13.5-18.0) L 07/18/19 18:10 Hct 30.9 % (42.0-54.0) L 07/18/19 18:10 MCV 83.3 fL (80.0-100.0) 07/18/19 18:10 MCH 27.4 pg (27.0-34.0) 07/18/19 18:10 MCHC 32.9 g/dL (33.0-35.0) L 07/18/19 18:10 RDW 17.7 % (11.6-16.5) H 07/18/19 18:10 Plt Count 112 X10^3/uL (150.0-450.0) L 07/18/19 18:10 MPV 8.3 fL (7.4-11.0) 07/18/19 18:10 Neut % (Auto) 76.7 % (42.0-75.0) H 07/18/19 18:10 Lymph % (Auto) 11.0 % (21.0-51.0) L 07/18/19 18:10 [place] % (Auto) 7.9 % (0.0-13.0) 07/18/19 18:10 Eos % (Auto) 4.2 % (0.9-2.9) H 07/18/19 18:10 Baso % (Auto) 0.2 % (0.2-1.0) 07/18/19 18:10 Neut # (Auto) 6.6 x10^3/uL (2.2-4.8) H 07/18/19 18:10 Lymph # (Auto) 0.9 X10^3/uL (1.3-2.9) L 07/18/19 18:10 [place] # (Auto) 0.7 x10^3/uL (0.3-0.8) 07/18/19 18:10 Eos # (Auto) 0.4 x10^3/uL (0.0-0.2) H 07/18/19 18:10 Baso # (Auto) 0.0 X10^3/uL (0.0-0.1) 07/18/19 18:10 Absolute Nucleated RBC 0.0 /100WBC 07/18/19 18:10 Sample Site Rr 07/18/19 19:40 ABG pH 7.420 (7.35-7.45) 07/18/19 19:40 ABG pCO2 55.0 mmHg (35.0-45.0) H* 07/18/19 19:40 ABG pO2 67.0 mmHg (80.0-100.0) L 07/18/19 19:40 ABG HCO3 35.7 mmol/L (22-26) H* 07/18/19 19:40 ABG O2 Saturation 93.0 % (90-100) 07/18/19 19:40 ABG Base Excess 9.4 mmol/L (-2.0-2.0) H 07/18/19 19:40 Romain Test Pos 07/18/19 19:40 A-a Gradient 64.0 mmHg 07/18/19 19:40 FiO2 28.0 07/18/19 19:40 Blood Gas Comments Marianne well 07/18/19 19:40 Sodium 139 mmol/L (136-145) 07/18/19 18:10 Corrected Sodium 140 mmol/L (136-145) 07/18/19 18:10 Potassium 4.4 mmol/L (3.5-5.1) 07/18/19 18:10 Chloride 100 mmol/L (98-107) 07/18/19 18:10 Carbon Dioxide 32.4 mmol/L (21-32) H 07/18/19 18:10 BUN 22 mg/dL (7-18) H 07/18/19 18:10 Creatinine 1.58 mg/dL (0.70-1.30) H 07/18/19 18:10 Est GFR (MDRD) Af Amer 54 (>60) L 07/18/19 18:10 Est GFR (MDRD) Non-Af 45 (>60) L 07/18/19 18:10 Glucose 140 mg/dL (65-99) H 07/18/19 18:10 Lactic Acid 1.7 mmol/L (0.4-2.0) 07/18/19 18:10 Calcium 8.5 mg/dL (8.5-10.1) 07/18/19 18:10 Corrected Calcium TNP 07/18/19 18:10 Total Bilirubin 0.90 mg/dL (0.2-1.0) 07/18/19 18:10 AST 32 Units/L (15-37) 07/18/19 18:10 ALT 27 Units/L (12-78) 07/18/19 18:10 Alkaline Phosphatase 53 Units/L (46-116) 07/18/19 18:10 Creatine Kinase 119 Units/L (39-308) 07/18/19 20:44 CK-MB (CK-2) 1.4 ng/mL (0-4.0) 07/18/19 20:44 CK/CKMB % Calc 1.2 % (<4) 07/18/19 20:44 Troponin I < 0.02 ng/mL (0-1.5) 07/18/19 20:44 Total Protein 6.3 g/dL (6.4-8.2) L 07/18/19 18:10 Albumin 3.6 g/dL (3.4-5.0) 07/18/19 18:10 Globulin 2.7 g/dL (2.5-4.5) 07/18/19 18:10 Albumin/Globulin Ratio 1.3 Ratio (1.1-2.1) 07/18/19 18:10 XRAY XRAY Interpreted by: Radiologist (REPORT NOTED AND DISCUSSED WITH PATIENT AND FAMILY.) and Self EKG Rate: 72 [place]: Normal Rhythm: Afib and PVCs Block: LBBB Hypertrophy: None ST: Old, Ant and Infarct Opioid Opioid Risk Tool Age (Ciaran box if 16-45): No History of Preadolescent Sexual Abuse: No Total: 0 Total Score Risk Category: Low Risk Copyright: Cantu LR predicting aberrant behaviors Diagnosis Discharge Problem: Acute respiratory distress, COPD exacerbation, Bronchitis CHF (congestive heart failure) Qualifiers: Heart failure type: combined systolic and diastolic Heart failure chronicity: acute on chronic Qualified Code(s): I50.43 - Acute on chronic combined systolic (congestive) and diastolic (congestive) heart failure Instructions Instructions: Fall Prevention in the Home, Adult, Ixes-ij-Gcay Colonoscopy, Adult, Care After, [id number] Type 2 Diabetes Mellitus, Self Care, Adult, Kzrz-[id number] Chronic Obstructive Pulmonary Disease Exacerbation, Cptr-gf-Oodm Heart Failure, Ejkm-wm-Ohyo Community-Acquired Pneumonia, Adult, Ympo-un-Gdhg Forms: Patient Portal
--- NOTE | 2019-07-18 18:59 | CT ---
HISTORYAMS, FALLSTUDYHEAD (TRAUMA)COMPARISONAugust 2017TECHNIQUESerial axial images were obtained from the skull base to the vertex without infusion of IV contrast. Coronal and sagittal images were also submitted. Dose reduction techniques including Automated Exposure Control (AEC) and adjustment of mA and kV were utilized.FINDINGSNo definite evidence of acute intracranial hemorrhage or mass is identified. The ventricles, sulci, and cisterns demonstrate an appearance consistent with a mild degree of generalized atrophy. Patchy areas of decreased attenuation within the periventricular, subcortical, and subinsular white matter suggest changes of chronic small vessel ischemic disease. Bilateral low attenuation extra-axial fluid collections are again demonstrated similar to prior exam.. No evidence of significant midline shift is identified. The visualized paranasal sinuses are grossly unremarkable. If symptoms or clinical concerns persist recommend continued follow up for further evaluation.IMPRESSIONNo definite CT evidence of acute intracranial abnormality is appreciated.Electronically signed by: SERAFIN CLAUDIO (Jul 18, 2019 18:58:28)
[2019-07-18] MEDS ORDERED: DUONEB 0.5 MG/3 MG (3 mL) NEB ONE ×2 (19:02→19:05)
[2019-07-18 19:47] LABS: ABG BASE EXCESS 9.4 mmol/L (-2.0-2.0)
[2019-07-18 19:49] LABS: ABG ALLEN TEST POS; ABG HCO3 35.7 mmol/L (22-26)
[2019-07-18 21:10] LABS: CKMB % 1.2 % (<4); CREATINE KINASE 119 Units/L (39-308); CREATINE KINASE MB 1.4 ng/mL (0-4.0); TROPONIN I < 0.02 ng/mL (0-1.5)
--- NOTE | 2019-07-18 21:43 | RAD ---
HISTORYWHEEZING, AMSSTUDYCHEST, 1 [id number]/21/2019FINDINGSThe heart is borderline enlarged. The pulmonary vessels are normal. The lungs are mildly hyperinflated and emphysematous. There is a pacemaker on the right there pacing wires on the left which are unchanged. No consolidation or effusion is seen.IMPRESSIONStable chest with no acute abnormality seen.Electronically signed by: RIKA MARIANO (Jul 18, 2019 21:41:25)
[2019-07-18] MEDS ORDERED: ROCEPHIN VIAL 1 GRAM IV ONE (23:15)
[2019-07-18] MEDS ORDERED: LASIX IVP ONE ×2 (23:19→23:59)
[2019-07-18] MEDS ORDERED: REQUIP PO ONE (23:28)
[2019-07-18] MEDS ORDERED: ROCEPHIN VIAL 1 GRAM ONE (23:59)
[2019-07-19 02:18] LABS: ABG BASE EXCESS 10.1 mmol/L (-2.0-2.0)
[2019-07-19 02:20] LABS: ABG ALLEN TEST POS
[2019-07-19 02:42] LABS: CKMB % 0.8 % (<4); CREATINE KINASE 124 Units/L (39-308); CREATINE KINASE MB < 1.0 ng/mL (0-4.0); TROPONIN I < 0.02 ng/mL (0-1.5)
[2019-07-19 04:15] VITALS: BMI 49.1
[2019-07-19 06:08] LABS: BASOPHILS % (AUTO) 0.3 % (0.2-1.0); EOSINOPHILS # (AUTO) 0.3 x10^3/uL (0.0-0.2); EOSINOPHILS % (AUTO) 3.4 % (0.9-2.9); HEMATOCRIT 27.4 % (42.0-54.0); HEMOGLOBIN 9.2 g/dL (13.5-18.0); LYMPHOCYTES # (AUTO) 1.2 X10^3/uL (1.3-2.9); LYMPHOCYTES % (AUTO) 14.4 % (21.0-51.0); MEAN CORPUSCULAR HEMOGLOBIN 27.6 pg (27.0-34.0); MEAN CORPUSCULAR HGB CONC 33.5 g/dL (33.0-35.0); MEAN CORPUSCULAR VOLUME 82.4 fL (80.0-100.0); MONOCYTES # (AUTO) 0.8 x10^3/uL (0.3-0.8); MONOCYTES % (AUTO) 10.3 % (0.0-13.0); NEUTROPHILS # (AUTO) 5.9 x10^3/uL (2.2-4.8); NEUTROPHILS % (AUTO) 71.6 % (42.0-75.0); PLATELET COUNT 103 X10^3/uL (150.0-450.0); RED BLOOD COUNT 3.32 X10^6/uL (4.7-6.0); RED CELL DISTRIBUTION WIDTH 17.6 % (11.6-16.5); WHITE BLOOD COUNT 8.2 X10^3/uL (3.6-10.0)
[2019-07-19 06:13] LABS: CALCIUM 8.3 mg/dL (8.5-10.1); CARBON DIOXIDE 34.9 mmol/L (21-32); COR CA(FOR HYPOALB) 9.1 mg/dL (8.5-10.1); CREATININE 1.49 mg/dL (0.70-1.30); TOTAL PROTEIN 6.2 g/dL (6.4-8.2)
[2019-07-19 06:26] LABS: CHOL/HDL RATIO 2.7 (0.0-5.0)
[2019-07-19] MEDS ORDERED: POTASSIUM CHL 60 MEQ/NS 0.45% 500 ML IV PRN (06:32)
[2019-07-19] MEDS ORDERED: KLOR-CON PO PRN (06:32)
[2019-07-19] MEDS ORDERED: POTASSIUM CHL 40 MEQ/NS 0.45% 500 ML IV PRN (06:32)
[2019-07-19] MEDS ORDERED: K-DUR TAB 20 MEQ PO PRN (06:32)
[2019-07-19] MEDS ORDERED: K-RIDER 10 MEQ/NS 100 ML 10 MEQ/100 ML BAG IV PRN (06:32)
[2019-07-19] MEDS ORDERED: MICRO K EXTEN CAP 10 MEQ PO PRN (06:32)
[2019-07-19 08:19] LABS: CKMB % 0.7 % (<4); CREATINE KINASE 142 Units/L (39-308); TROPONIN I < 0.02 ng/mL (0-1.5)
[2019-07-19] MEDS: ROCEPHIN VIAL 1 GRAM 1 G in NS 100 ML IV + SPIKE MINIBAG* 100 ML IV SCH (09:30)
[2019-07-19] MEDS ORDERED: NS 100 ML IV 100 ML IV ONE (09:32)
[2019-07-19] MEDS: ZITHROMAX INJ 500 MG VIAL 500 MG in D5W 250 ML IV 250 ML IV SCH (10:30)
[2019-07-19] MEDS ORDERED: XOPENEX 1.25 MG/3 ML NEBULE NEB ONE (11:52)
[2019-07-19] MEDS: XOPENEX 1.25 MG/3 ML NEBULE NEB SCH ×2 (11:54→17:00)
[2019-07-19] MEDS: LOVENOX INJ 40 MG SYR SC SCH (13:45)
--- NOTE | 2019-07-19 14:12 | DR.H&P ---
H&P - History & Physical for Day of: H&P Date: 07/18/19 - Chief Complaint Chief Complaint: SOB, CCC, CONFUSION PER FAMILY - History of Present Illness History of Present Illness: PT IS 84 WM ER ADMISSION WITH CO INCREASING SOB AND CONGESTION. PATIENT IS COUGHING AND HAVING CONGESTION. NO FEVER. HE IS CONFUSED. PATIENT HAVE HISTORY OF COPD, HYPERTENSION AND DM AND CAD. RELATIVES SAID SIMILAR EPISODES IN THE PAST RELATED TO RESPIRATORY INSUFFICIENCY. SWELLING OF ESTREMITIES THAT IS PROGRESSIVE ONSET. - Past Medical History Past Medical History: Coronary Artery Disease, Hypertension, Diabetes, Anxiety, COPD, PUD, GERD, Arthritis - Past Surgical History Surgical History: Tonsillectomy - Family History Family Medical History: Cancer - Social History Does patient currently use any type of tobacco product: No Have you used tobacco products in the last 12 months: No Type of Tobacco Use: None Does any household member use tobacco: No Alcohol Use: None - Medications Home Medications: codeine Allergy (Verified 07/18/19 17:25) iodine Allergy (Verified 07/18/19 17:25) CONTINUE taking the following medications bupropion HCl 75 mg PO AC 07/18/19 [History] colchicine [Colcrys] 0.6 mg PO DAILY 07/18/19 [History] ondansetron HCl 4 mg PO Q8-10H PRN 07/18/19 [History] potassium chloride 20 meq PO DAILY 07/18/19 [History] - Review of Systems Constitutional: Weakness Eyes: No Symptoms Reported ENT: No Symptoms Reported Respiratory: Cough, Shortness of Breath, SOB with Excertion, Wheezing Cardiovascular: Edema Gastrointestinal: Nausea Genitourinary: Frequency Musculoskeletal: Back Pain, Leg Pain Skin: No Symptoms Reported Neurological: Weakness - Physical Exam Vital Signs: Temperature 99.5 F Pulse Rate [Apical] 69 Pulse Rate 71 Respiratory Rate 20 Blood Pressure [Left Arm] 136/58 Blood Pressure [Right Arm] 117/58 Blood Pressure 115/59 O2 Sat by Pulse Oximetry 96 Oriented: Normal Eyes: Normal Ear: Normal Nose: Normal Throat: Dry Respiratory: Rhonchi Throughout, RLL Diminished, LLL Diminished Cardiovascular: Normal, Edema : Normal Auscultation: Bowel Sounds: Normal Palpation: Normal Tenderness: Normal Skin: Decreased Turgur Musculoskeletal: Back:Thoracic, Back:Lumbar Psychiatric: Anxiety Mood Description: Calm Affect: Anxious Speech Pattern: Clear, Appropriate - Assessment/Plan (1) Altered mental status Qualifiers: Altered mental status type: disorientation Qualified Code(s): R41.0 - Disorientation, unspecified Status: Acute Plan: R/T HYPOXIA. ADMIT, CE AND EKG. STRICT I & OS, IV LASIX GIVEN IN ER. SUPPLEMENTAL O2, RESP THERAPY. SPUTUM CULTURE, IV ATBX, ABG ON ADMISSION. VERIFY HOME MEDICATION (2) Pneumonia Status: Acute (3) Low oxygen saturation Status: Acute (4) CHF (congestive heart failure) Status: Acute (5) Rheumatoid arthritis Qualifiers: Rheumatoid arthritis location: knee Rheumatoid factor presence: unspecified presence Laterality: bilateral Qualified Code(s): M06.9 - Rheumatoid arthritis, unspecified Status: Acute (6) Diabetes mellitus Qualifiers: Diabetes mellitus type: type 2 Diabetes mellitus correction insulin use: without correction use Diabetes mellitus complication status: without complication Qualified Code(s): E11.9 - Type 2 diabetes mellitus without complications Status: Acute (7) Chronic GERD Status: Acute - Allergies Allergies/Adverse Reactions: Allergies Allergy/AdvReac Type Severity Reaction Status Date / Time codeine Allergy Verified 07/18/19 17:25 iodine Allergy Verified 07/18/19 17:25
[2019-07-19 14:36] LABS: BASOPHILS % (AUTO) 0.5 % (0.2-1.0); EOSINOPHILS # (AUTO) 0.2 x10^3/uL (0.0-0.2); EOSINOPHILS % (AUTO) 3.2 % (0.9-2.9); HEMATOCRIT 27.8 % (42.0-54.0); HEMOGLOBIN 9.3 g/dL (13.5-18.0); LYMPHOCYTES # (AUTO) 0.7 X10^3/uL (1.3-2.9); LYMPHOCYTES % (AUTO) 10.1 % (21.0-51.0); MEAN CORPUSCULAR HEMOGLOBIN 27.7 pg (27.0-34.0); MEAN CORPUSCULAR HGB CONC 33.5 g/dL (33.0-35.0); MEAN CORPUSCULAR VOLUME 82.7 fL (80.0-100.0); MEAN PLATELET VOLUME 9.3 fL (7.4-11.0); MONOCYTES # (AUTO) 0.6 x10^3/uL (0.3-0.8); NEUTROPHILS # (AUTO) 5.4 x10^3/uL (2.2-4.8); NEUTROPHILS % (AUTO) 77.2 % (42.0-75.0); PLATELET COUNT 104 X10^3/uL (150.0-450.0); RED BLOOD COUNT 3.36 X10^6/uL (4.7-6.0); RED CELL DISTRIBUTION WIDTH 17.6 % (11.6-16.5)
[2019-07-19 14:40] LABS: CKMB % 0.8 % (<4); CREATINE KINASE 127 Units/L (39-308); CREATINE KINASE MB < 1.0 ng/mL (0-4.0); TROPONIN I < 0.02 ng/mL (0-1.5)
[2019-07-19 15:14] LABS: IRON 14 ug/dL (50-175)
[2019-07-19] MEDS: LIPITOR TAB 20 MG PO SCH ×2 (15:53→21:35)
[2019-07-19] MEDS: WELLBUTRIN IR (PLAIN) PO SCH (16:00)
[2019-07-19] MEDS: NS 1000 ML 1,000 ML IV SCH (16:00)
[2019-07-19] MEDS: NORCO 10/325 TAB PO PRN (16:04)
[2019-07-19] MEDS ORDERED: SNACK - Diabetic Appropriate PO SCH (20:00)
[2019-07-19] MEDS: SNACK - Diabetic Appropriate PO SCH (20:55)
[2019-07-19] MEDS: SOLU-Medrol 40 MG VIAL IVP SCH (21:35)
[2019-07-19] MEDS: REQUIP PO SCH (21:35)
[2019-07-20] MEDS: XOPENEX 1.25 MG/3 ML NEBULE NEB SCH ×5 (00:45→18:46)
[2019-07-20] MEDS ORDERED: PEPCID TAB 20 MG ONE (01:06)
[2019-07-20] MEDS: PEPCID TAB 20 MG PO SCH ×3 (01:06→21:20)
[2019-07-20] MEDS: NORCO 10/325 TAB PO PRN ×2 (03:30→09:15)
[2019-07-20 05:56] LABS: BASOPHILS % (AUTO) 0.2 % (0.2-1.0); EOSINOPHILS % (AUTO) 0.1 % (0.9-2.9); HEMATOCRIT 29.8 % (42.0-54.0); HEMOGLOBIN 10.1 g/dL (13.5-18.0); LYMPHOCYTES # (AUTO) 0.4 X10^3/uL (1.3-2.9); LYMPHOCYTES % (AUTO) 6.6 % (21.0-51.0); MEAN CORPUSCULAR HEMOGLOBIN 27.6 pg (27.0-34.0); MEAN CORPUSCULAR HGB CONC 33.8 g/dL (33.0-35.0); MEAN CORPUSCULAR VOLUME 81.8 fL (80.0-100.0); MEAN PLATELET VOLUME 9.1 fL (7.4-11.0); MONOCYTES # (AUTO) 0 x10^3/uL (0.3-0.8); MONOCYTES % (AUTO) 0.7 % (0.0-13.0); NEUTROPHILS # (AUTO) 5.7 x10^3/uL (2.2-4.8); NEUTROPHILS % (AUTO) 92.4 % (42.0-75.0); PLATELET COUNT 95 X10^3/uL (150.0-450.0); RED BLOOD COUNT 3.64 X10^6/uL (4.7-6.0); RED CELL DISTRIBUTION WIDTH 17.1 % (11.6-16.5); WHITE BLOOD COUNT 6.1 X10^3/uL (3.6-10.0)
[2019-07-20 06:05] LABS: ALANINE AMINOTRANSFERASE 22 Units/L (12-78); ALBUMIN 2.9 g/dL (3.4-5.0); ALKALINE PHOSPHATASE 62 Units/L (46-116); ASPARTATE AMINO TRANSFERASE 20 Units/L (15-37); BLOOD UREA NITROGEN 17 mg/dL (7-18); CALCIUM 8.7 mg/dL (8.5-10.1); CARBON DIOXIDE 32.1 mmol/L (21-32); CHLORIDE 100 mmol/L (98-107); COR CA(FOR HYPOALB) 9.6 mg/dL (8.5-10.1); COR NA(FOR HYPERGLY) 142 mmol/L (136-145); CREATININE 1.07 mg/dL (0.70-1.30); SODIUM 139 mmol/L (136-145); TOTAL PROTEIN 6.4 g/dL (6.4-8.2); eGFR NON BLACK RACES > 60 (>60)
[2019-07-20] MEDS: SOLU-Medrol 40 MG VIAL IVP SCH ×3 (06:11→21:21)
[2019-07-20] MEDS: WELLBUTRIN IR (PLAIN) PO SCH (06:12)
[2019-07-20] MEDS: HumuLIN R SUBCUT PRN ×3 (06:13→21:28)
--- NOTE | 2019-07-20 06:21 | RAD ---
HISTORYFollow-up pneumoniaSTUDYCHEST, 1 VIEWCOMPARISONFebruary 2019FINDINGSThere is a pacemaker present on the right partially obscuring the right lung apex. Old fractured pacer wires are present on the left. The heart is within normal limits in size. The pedro are normal. The lung vicente are clear. No pleural effusions are identified. The bony thorax is unremarkable.IMPRESSIONNo significant abnormality identifiedElectronically signed by: HELIO TAYLOR (Jul 20, 2019 06:20:25)
[2019-07-20 06:29] LABS: PLATELET MORPHOLOGY COMMENT NORMAL (NORMAL)
[2019-07-20] MEDS: ROCEPHIN VIAL 1 GRAM 1 G in NS 100 ML IV + SPIKE MINIBAG* 100 ML IV SCH (09:17)
[2019-07-20] MEDS: CARDURA PO SCH (10:41)
[2019-07-20] MEDS: COLCRYS TAB 0.6 MG PO SCH (10:42)
[2019-07-20] MEDS: REQUIP PO SCH ×2 (10:43→21:20)
[2019-07-20] MEDS: MAG-OX TAB PO SCH ×2 (10:44→21:21)
[2019-07-20] MEDS ORDERED: NS 100 ML IV 100 ML with VENOFER 400 MG IV NR ×2 (11:00)
[2019-07-20] MEDS ORDERED: NS 100 ML IV IV ONE (11:05)
[2019-07-20] MEDS: HEMOCYTE-PLUS PO SCH (11:35)
[2019-07-20] MEDS: LYRICA CAP 75 mg PO SCH ×2 (11:36→21:20)
[2019-07-20] MEDS: ZITHROMAX INJ 500 MG VIAL 500 MG in D5W 250 ML IV 250 ML IV SCH (11:36)
[2019-07-20] MEDS: MORPHINE SULFATE INJ 2 MG INJ IVP PRN (11:38)
[2019-07-20] MEDS: POTASSIUM CHLORIDE LIQ 20 MEQ UDC PO PRN (12:47)
[2019-07-20] MEDS: LOVENOX INJ 40 MG SYR SC SCH (14:00)
[2019-07-20] MEDS: NS 1000 ML 1,000 ML IV SCH (18:28)
[2019-07-20] MEDS: SNACK - Diabetic Appropriate PO SCH (20:33)
[2019-07-20] MEDS: LIPITOR TAB 20 MG PO SCH (21:21)
[2019-07-21] MEDS: XOPENEX 1.25 MG/3 ML NEBULE NEB SCH ×4 (01:15→18:03)
[2019-07-21] MEDS: SOLU-Medrol 40 MG VIAL IVP SCH (06:08)
[2019-07-21 06:10] LABS: BASOPHILS % (AUTO) 0.2 % (0.2-1.0); HEMATOCRIT 28.9 % (42.0-54.0); HEMOGLOBIN 9.6 g/dL (13.5-18.0); LYMPHOCYTES # (AUTO) 0.6 X10^3/uL (1.3-2.9); LYMPHOCYTES % (AUTO) 4.6 % (21.0-51.0); MEAN CORPUSCULAR HEMOGLOBIN 27.3 pg (27.0-34.0); MEAN CORPUSCULAR HGB CONC 33.2 g/dL (33.0-35.0); MEAN CORPUSCULAR VOLUME 82.3 fL (80.0-100.0); MEAN PLATELET VOLUME 9.2 fL (7.4-11.0); MONOCYTES # (AUTO) 0.4 x10^3/uL (0.3-0.8); MONOCYTES % (AUTO) 2.9 % (0.0-13.0); NEUTROPHILS # (AUTO) 11.5 x10^3/uL (2.2-4.8); NEUTROPHILS % (AUTO) 92.3 % (42.0-75.0); PLATELET COUNT 113 X10^3/uL (150.0-450.0); RED BLOOD COUNT 3.51 X10^6/uL (4.7-6.0); RED CELL DISTRIBUTION WIDTH 17.3 % (11.6-16.5); WHITE BLOOD COUNT 12.5 X10^3/uL (3.6-10.0)
[2019-07-21 06:20] LABS: ALANINE AMINOTRANSFERASE 23 Units/L (12-78); ALKALINE PHOSPHATASE 57 Units/L (46-116); ASPARTATE AMINO TRANSFERASE 24 Units/L (15-37); BLOOD UREA NITROGEN 17 mg/dL (7-18); CALCIUM 8.8 mg/dL (8.5-10.1); CARBON DIOXIDE 30.3 mmol/L (21-32); CHLORIDE 104 mmol/L (98-107); COR CA(FOR HYPOALB) 9.6 mg/dL (8.5-10.1); COR NA(FOR HYPERGLY) 143 mmol/L (136-145); CREATININE 1.03 mg/dL (0.70-1.30); SODIUM 141 mmol/L (136-145); TOTAL PROTEIN 6.2 g/dL (6.4-8.2); eGFR NON BLACK RACES > 60 (>60)
[2019-07-21 06:35] LABS: BAND NEUTROPHILS % 5 % (0-10); PLATELET MORPHOLOGY COMMENT NORMAL (NORMAL)
[2019-07-21] MEDS: LOVENOX INJ 40 MG SYR SC SCH (09:21)
[2019-07-21] MEDS: ROCEPHIN VIAL 1 GRAM 1 G in NS 100 ML IV + SPIKE MINIBAG* 100 ML IV SCH (09:21)
[2019-07-21] MEDS: POTASSIUM CHLORIDE LIQ 20 MEQ UDC PO PRN (09:22)
[2019-07-21] MEDS: LYRICA CAP 75 mg PO SCH ×2 (09:22→20:50)
[2019-07-21] MEDS: NORCO 10/325 TAB PO PRN (09:23)
[2019-07-21] MEDS: PEPCID TAB 20 MG PO SCH ×2 (09:23→20:49)
[2019-07-21] MEDS: MAG-OX TAB PO SCH ×2 (09:24→20:49)
[2019-07-21] MEDS: COLCRYS TAB 0.6 MG PO SCH (09:25)
[2019-07-21] MEDS: REQUIP PO SCH ×2 (09:25→20:50)
[2019-07-21] MEDS: HEMOCYTE-PLUS PO SCH (09:25)
[2019-07-21] MEDS: CARDURA PO SCH (09:57)
[2019-07-21] MEDS: WELLBUTRIN IR (PLAIN) PO SCH (09:57)
[2019-07-21] MEDS: ZITHROMAX INJ 500 MG VIAL 500 MG in D5W 250 ML IV 250 ML IV SCH (09:58)
[2019-07-21] MEDS: NS 1000 ML 1,000 ML IV SCH (16:50)
[2019-07-21 18:24] LABS: CRYPTOSPORIDIUM PARVUM ANTIGEN NEGATIVE (NEGATIVE); GIARDIA LAMBLIA ANTIGEN NEGATIVE (NEGATIVE)
[2019-07-21] MEDS ORDERED: MAALOX or MYLANTA PO PRN (19:22)
[2019-07-21] MEDS: SNACK - Diabetic Appropriate PO SCH (20:47)
[2019-07-21] MEDS: HumuLIN R SUBCUT PRN (20:48)
[2019-07-21] MEDS: LIPITOR TAB 20 MG PO SCH (20:49)
[2019-07-21] MEDS ORDERED: SOLU-Medrol 40 MG VIAL IVP SCH (21:00)
[2019-07-21] MEDS: ZOFRAN INJ 4 MG VIAL IVP PRN (22:15)
[2019-07-22] MEDS: XOPENEX 1.25 MG/3 ML NEBULE NEB SCH ×3 (00:50→12:50)
[2019-07-22] MEDS: MORPHINE SULFATE INJ 2 MG INJ IVP PRN (01:03)
[2019-07-22] MEDS: NORCO 10/325 TAB PO PRN ×2 (02:15→15:15)
[2019-07-22 05:32] LABS: BASOPHILS % (AUTO) 0.1 % (0.2-1.0); HEMOGLOBIN 9.6 g/dL (13.5-18.0); LYMPHOCYTES # (AUTO) 0.6 X10^3/uL (1.3-2.9); LYMPHOCYTES % (AUTO) 4.8 % (21.0-51.0); MEAN CORPUSCULAR HEMOGLOBIN 27.8 pg (27.0-34.0); MEAN PLATELET VOLUME 9.7 fL (7.4-11.0); MONOCYTES # (AUTO) 0.5 x10^3/uL (0.3-0.8); MONOCYTES % (AUTO) 3.8 % (0.0-13.0); NEUTROPHILS % (AUTO) 91.3 % (42.0-75.0); PLATELET COUNT 111 X10^3/uL (150.0-450.0); RED BLOOD COUNT 3.45 X10^6/uL (4.7-6.0); RED CELL DISTRIBUTION WIDTH 17.6 % (11.6-16.5); WHITE BLOOD COUNT 12.1 X10^3/uL (3.6-10.0)
[2019-07-22 05:46] LABS: ALANINE AMINOTRANSFERASE 33 Units/L (12-78); ALKALINE PHOSPHATASE 54 Units/L (46-116); ASPARTATE AMINO TRANSFERASE 30 Units/L (15-37); BLOOD UREA NITROGEN 20 mg/dL (7-18); CALCIUM 8.6 mg/dL (8.5-10.1); CHLORIDE 104 mmol/L (98-107); COR CA(FOR HYPOALB) 9.4 mg/dL (8.5-10.1); COR NA(FOR HYPERGLY) 144 mmol/L (136-145); CREATININE 1.07 mg/dL (0.70-1.30); SODIUM 142 mmol/L (136-145); TOTAL PROTEIN 6.1 g/dL (6.4-8.2); eGFR NON BLACK RACES > 60 (>60)
[2019-07-22 05:49] LABS: BAND NEUTROPHILS % 2 % (0-10); PLATELET MORPHOLOGY COMMENT NORMAL (NORMAL)
[2019-07-22] MEDS: HumuLIN R SUBCUT PRN (05:52)
--- NOTE | 2019-07-22 07:41 | RAD ---
HISTORYCHF, COPDSTUDYPortable AP chestCOMPARISONFebruary 2019FINDINGSThere is unchanged mild cardiomegaly with intact pacemaker wire leads via the right subclavian vein. The lungs are clear. There is no edema or effusion.IMPRESSIONNo acute cardiopulmonary diseaseElectronically signed by: WILFREDO ARGUELLO (Jul 22, 2019 07:40:21)
[2019-07-22] MEDS: ZITHROMAX INJ 500 MG VIAL 500 MG in D5W 250 ML IV 250 ML IV SCH (08:57)
[2019-07-22] MEDS: ROCEPHIN VIAL 1 GRAM 1 G in NS 100 ML IV + SPIKE MINIBAG* 100 ML IV SCH (08:58)
[2019-07-22] MEDS: PEPCID TAB 20 MG PO SCH ×2 (08:59→20:30)
[2019-07-22] MEDS: M.S. CONTIN 30 MG EXTENDED RELEASE PO SCH ×2 (08:59→20:30)
[2019-07-22] MEDS: MAG-OX TAB PO SCH ×2 (09:00→20:30)
[2019-07-22] MEDS: COLCRYS TAB 0.6 MG PO SCH (09:01)
[2019-07-22] MEDS: LYRICA CAP 75 mg PO SCH (09:01)
[2019-07-22] MEDS: HEMOCYTE-PLUS PO SCH (09:02)
[2019-07-22] MEDS: REQUIP PO SCH ×2 (09:02→20:29)
[2019-07-22] MEDS: WELLBUTRIN IR (PLAIN) PO SCH (09:18)
[2019-07-22] MEDS: CARDURA PO SCH (09:18)
--- NOTE | 2019-07-22 09:51 | RAD ---
HISTORYABD PAIN Relevant Clinical [id number]/20/2019.FINDINGSThere is mild gas is distension of the small bowel lo ops in the mid abdomen. Air and stool are present throughout the colon without obstruction. No opaque stone is seen. There is multilevel degenerative change involving the lumbar spine and multilevel spo ndylosis. Scoliosis of the lumbar region convex to the patient's right side.IMPRESSIONMild small gurmeet l ileus pattern without bowel obstruction.Electronically signed by: VANDA KNIGHT (Jul 22, 2019 09:49:4 3)
[2019-07-22] MEDS: ZOFRAN INJ 4 MG VIAL IVP PRN (12:27)
[2019-07-22] MEDS: LEVSIN/MAALOX/LIDOC VISC PO SCH ×3 (12:28→20:29)
[2019-07-22] MEDS: PROTONIX INJ 40 MG VIAL IVP SCH ×2 (12:29→21:11)
[2019-07-22] MEDS ORDERED: REGLAN INJ 10 MG VIAL IVP ONE (13:13)
[2019-07-22] MEDS ORDERED: REGLAN INJ 10 MG VIAL ONE (13:32)
[2019-07-22] MEDS ORDERED: XOPENEX 1.25 MG/3 ML NEBULE NEB PRN (14:03)
[2019-07-22] MEDS: NS 1000 ML 1,000 ML IV SCH (16:11)
[2019-07-22] MEDS: DUONEB 0.5 MG/3 MG (3 mL) NEB SCH ×2 (16:57→20:48)
--- NOTE | 2019-07-22 18:28 | US ---
GALL BLADDERHISTORY: RUQ PAIN/ N/V- ABD DISTENTIONComparison: NoneTechnique: Multiple marcus scale and color flow Doppler images of the abdomen were obtained.Findings:Overall study is limited by overlying bowel gas. The liver is hyperechoic. No focal mass. No intrahepatic bile duct dilatation. No gallstones.Questionable gallbladder wall thickening however the gallbladder is decompressed. Reported positive sonographic Maldonado sign. The common bile duct measures 2 mm. Small amount of free fluid in the right upper quadrant.The right kidney measures 9.4 cm. No focal mass, hydronephrosis, or stones identified.IMPRESSION:1. No gallstones however the cardiac technologist reports a positive sonographic Maldonado sign. Correlate with true physical examination. There is questionable gallbladder wall thickening however that is a nonspecific finding and may be secondary to gallbladder decompression.2. Hepatic steatosis. Small amount of ascites.Electronically signed by: AMA MALONEY (Jul 22, 2019 18:26:23)
[2019-07-22] MEDS: LIPITOR TAB 20 MG PO SCH (20:30)
[2019-07-22] MEDS: SNACK - Diabetic Appropriate PO SCH (21:11)
[2019-07-22] MEDS ORDERED: ROBITUSSIN DM PO PRN (22:44)
[2019-07-23 05:49] LABS: BASOPHILS % (AUTO) 0.1 % (0.2-1.0); EOSINOPHILS # (AUTO) 0.1 x10^3/uL (0.0-0.2); EOSINOPHILS % (AUTO) 1.1 % (0.9-2.9); HEMATOCRIT 29.2 % (42.0-54.0); HEMOGLOBIN 9.7 g/dL (13.5-18.0); LYMPHOCYTES % (AUTO) 23.9 % (21.0-51.0); MEAN CORPUSCULAR HEMOGLOBIN 28.1 pg (27.0-34.0); MEAN CORPUSCULAR HGB CONC 33.1 g/dL (33.0-35.0); MEAN CORPUSCULAR VOLUME 84.7 fL (80.0-100.0); MEAN PLATELET VOLUME 9.1 fL (7.4-11.0); MONOCYTES # (AUTO) 0.6 x10^3/uL (0.3-0.8); MONOCYTES % (AUTO) 7.4 % (0.0-13.0); NEUTROPHILS # (AUTO) 5.7 x10^3/uL (2.2-4.8); NEUTROPHILS % (AUTO) 67.5 % (42.0-75.0); PLATELET COUNT 99 X10^3/uL (150.0-450.0); RED BLOOD COUNT 3.45 X10^6/uL (4.7-6.0); RED CELL DISTRIBUTION WIDTH 17.9 % (11.6-16.5); WHITE BLOOD COUNT 8.4 X10^3/uL (3.6-10.0)
[2019-07-23 06:17] LABS: ALANINE AMINOTRANSFERASE 31 Units/L (12-78); ALBUMIN 2.8 g/dL (3.4-5.0); ALKALINE PHOSPHATASE 41 Units/L (46-116); ASPARTATE AMINO TRANSFERASE 26 Units/L (15-37); BLOOD UREA NITROGEN 17 mg/dL (7-18); CALCIUM 8.1 mg/dL (8.5-10.1); CARBON DIOXIDE 32.9 mmol/L (21-32); CHLORIDE 107 mmol/L (98-107); COR CA(FOR HYPOALB) 9.1 mg/dL (8.5-10.1); COR NA(FOR HYPERGLY) 144 mmol/L (136-145); SODIUM 143 mmol/L (136-145); TOTAL PROTEIN 5.6 g/dL (6.4-8.2); eGFR NON BLACK RACES > 60 (>60)
[2019-07-23] MEDS: DUONEB 0.5 MG/3 MG (3 mL) NEB SCH ×5 (08:06→21:05)
[2019-07-23] MEDS: PEPCID TAB 20 MG PO SCH ×2 (09:00→21:11)
[2019-07-23] MEDS: M.S. CONTIN 30 MG EXTENDED RELEASE PO SCH ×2 (09:08→21:10)
[2019-07-23] MEDS: REQUIP PO SCH ×2 (09:10→21:09)
[2019-07-23] MEDS: HEMOCYTE-PLUS PO SCH (09:11)
[2019-07-23] MEDS: CARDURA PO SCH (09:11)
[2019-07-23] MEDS: COLCRYS TAB 0.6 MG PO SCH (09:12)
[2019-07-23] MEDS: MAG-OX TAB PO SCH ×2 (09:12→21:10)
[2019-07-23] MEDS: PROTONIX INJ 40 MG VIAL IVP SCH ×2 (09:13→21:11)
[2019-07-23] MEDS: ROCEPHIN VIAL 1 GRAM 1 G in NS 100 ML IV + SPIKE MINIBAG* 100 ML IV SCH (09:13)
[2019-07-23] MEDS: LEVSIN/MAALOX/LIDOC VISC PO SCH ×4 (09:23→21:10)
[2019-07-23] MEDS: WELLBUTRIN IR (PLAIN) PO SCH ×2 (10:00→11:44)
[2019-07-23] MEDS: ZITHROMAX INJ 500 MG VIAL 500 MG in D5W 250 ML IV 250 ML IV SCH (10:40)
--- NOTE | 2019-07-23 14:56 | RAD ---
HISTORYIleus [id number]/28/2020FINDINGSThere is slight gas distention of the colon. No significant sm all bowel dilatation, mass is seen. Visceral outlines are not well defined. No pathologic calcificati on is seen.IMPRESSIONNo acute or significant abnormality.Electronically signed by: CLAIRE LR (2019 14:54:58)
[2019-07-23] MEDS: NS 1000 ML 1,000 ML IV SCH (17:38)
[2019-07-23] MEDS: LIPITOR TAB 20 MG PO SCH (21:09)
[2019-07-23] MEDS: SNACK - Diabetic Appropriate PO SCH (21:31)
[2019-07-24 06:12] LABS: BASOPHILS % (AUTO) 0.1 % (0.2-1.0); EOSINOPHILS # (AUTO) 0.6 x10^3/uL (0.0-0.2); EOSINOPHILS % (AUTO) 9.1 % (0.9-2.9); HEMATOCRIT 29.3 % (42.0-54.0); HEMOGLOBIN 9.7 g/dL (13.5-18.0); LYMPHOCYTES # (AUTO) 2.1 X10^3/uL (1.3-2.9); LYMPHOCYTES % (AUTO) 32.6 % (21.0-51.0); MEAN CORPUSCULAR HEMOGLOBIN 27.8 pg (27.0-34.0); MEAN CORPUSCULAR HGB CONC 33.1 g/dL (33.0-35.0); MEAN PLATELET VOLUME 8.7 fL (7.4-11.0); MONOCYTES # (AUTO) 0.4 x10^3/uL (0.3-0.8); NEUTROPHILS # (AUTO) 3.3 x10^3/uL (2.2-4.8); NEUTROPHILS % (AUTO) 52.2 % (42.0-75.0); PLATELET COUNT 103 X10^3/uL (150.0-450.0); RED BLOOD COUNT 3.48 X10^6/uL (4.7-6.0); RED CELL DISTRIBUTION WIDTH 17.9 % (11.6-16.5); WHITE BLOOD COUNT 6.4 X10^3/uL (3.6-10.0)
[2019-07-24 06:19] LABS: ALANINE AMINOTRANSFERASE 31 Units/L (12-78); ALBUMIN 2.8 g/dL (3.4-5.0); ALKALINE PHOSPHATASE 39 Units/L (46-116); ASPARTATE AMINO TRANSFERASE 21 Units/L (15-37); BLOOD UREA NITROGEN 14 mg/dL (7-18); CALCIUM 7.9 mg/dL (8.5-10.1); CARBON DIOXIDE 32.8 mmol/L (21-32); CHLORIDE 106 mmol/L (98-107); COR CA(FOR HYPOALB) 8.9 mg/dL (8.5-10.1); CREATININE 1.15 mg/dL (0.70-1.30); SODIUM 141 mmol/L (136-145); TOTAL PROTEIN 5.4 g/dL (6.4-8.2); eGFR NON BLACK RACES > 60 (>60)
[2019-07-24] MEDS: CARDURA PO SCH (08:45)
[2019-07-24] MEDS: COLCRYS TAB 0.6 MG PO SCH (08:45)
[2019-07-24] MEDS: HEMOCYTE-PLUS PO SCH (08:46)
[2019-07-24] MEDS: LEVSIN/MAALOX/LIDOC VISC PO SCH ×4 (08:46→21:16)
[2019-07-24] MEDS: M.S. CONTIN 30 MG EXTENDED RELEASE PO SCH ×2 (08:48→21:17)
[2019-07-24] MEDS: MAG-OX TAB PO SCH ×2 (08:48→21:16)
[2019-07-24] MEDS: PROTONIX INJ 40 MG VIAL IVP SCH ×2 (08:49→21:16)
[2019-07-24] MEDS: WELLBUTRIN IR (PLAIN) PO SCH (08:49)
[2019-07-24] MEDS: REQUIP PO SCH ×2 (08:49→21:16)
[2019-07-24] MEDS: PEPCID TAB 20 MG PO SCH ×2 (08:49→21:16)
[2019-07-24] MEDS: ROCEPHIN VIAL 1 GRAM 1 G in NS 100 ML IV + SPIKE MINIBAG* 100 ML IV SCH (08:49)
[2019-07-24] MEDS: ZITHROMAX INJ 500 MG VIAL 500 MG in D5W 250 ML IV 250 ML IV SCH (08:50)
[2019-07-24] MEDS: DUONEB 0.5 MG/3 MG (3 mL) NEB SCH (20:45)
[2019-07-24] MEDS: LIPITOR TAB 20 MG PO SCH (21:17)
[2019-07-24] MEDS: SNACK - Diabetic Appropriate PO SCH (21:18)
[2019-07-24] MEDS: COLACE CAP 100 MG PO SCH (21:21)
[2019-07-24] MEDS: MILK OF MAGNESIA PO SCH ×2 (21:21→22:08)
[2019-07-25 06:20] LABS: BASOPHILS % (AUTO) 0.3 % (0.2-1.0); EOSINOPHILS # (AUTO) 0.6 x10^3/uL (0.0-0.2); EOSINOPHILS % (AUTO) 9.6 % (0.9-2.9); HEMATOCRIT 30.2 % (42.0-54.0); HEMOGLOBIN 10.1 g/dL (13.5-18.0); LYMPHOCYTES # (AUTO) 1.7 X10^3/uL (1.3-2.9); LYMPHOCYTES % (AUTO) 25.9 % (21.0-51.0); MEAN CORPUSCULAR HEMOGLOBIN 28.1 pg (27.0-34.0); MEAN CORPUSCULAR HGB CONC 33.4 g/dL (33.0-35.0); MEAN CORPUSCULAR VOLUME 84.2 fL (80.0-100.0); MEAN PLATELET VOLUME 8.9 fL (7.4-11.0); MONOCYTES # (AUTO) 0.4 x10^3/uL (0.3-0.8); MONOCYTES % (AUTO) 6.3 % (0.0-13.0); NEUTROPHILS # (AUTO) 3.8 x10^3/uL (2.2-4.8); NEUTROPHILS % (AUTO) 57.9 % (42.0-75.0); PLATELET COUNT 112 X10^3/uL (150.0-450.0); RED BLOOD COUNT 3.59 X10^6/uL (4.7-6.0); RED CELL DISTRIBUTION WIDTH 17.1 % (11.6-16.5); WHITE BLOOD COUNT 6.6 X10^3/uL (3.6-10.0)
[2019-07-25 06:24] LABS: ALANINE AMINOTRANSFERASE 33 Units/L (12-78); ALBUMIN 2.9 g/dL (3.4-5.0); ALKALINE PHOSPHATASE 45 Units/L (46-116); ASPARTATE AMINO TRANSFERASE 22 Units/L (15-37); BLOOD UREA NITROGEN 14 mg/dL (7-18); CALCIUM 8.4 mg/dL (8.5-10.1); CARBON DIOXIDE 36.1 mmol/L (21-32); CHLORIDE 106 mmol/L (98-107); COR CA(FOR HYPOALB) 9.3 mg/dL (8.5-10.1); CREATININE 1.14 mg/dL (0.70-1.30); SODIUM 142 mmol/L (136-145); TOTAL PROTEIN 5.6 g/dL (6.4-8.2); eGFR NON BLACK RACES > 60 (>60)
[2019-07-25] MEDS: DUONEB 0.5 MG/3 MG (3 mL) NEB SCH ×5 (08:30→20:55)
[2019-07-25] MEDS ORDERED: STERILE WATER IRRIGATION IR ONE (10:32)
[2019-07-25] MEDS ORDERED: DIFLUCAN 100 MG IV (MIX by PHARMACY)* 100 MG/50 ML BAG IV SCH (12:00)
[2019-07-25] MEDS: CARDURA PO SCH (13:39)
[2019-07-25] MEDS: WELLBUTRIN IR (PLAIN) PO SCH (13:39)
[2019-07-25] MEDS: PEPCID TAB 20 MG PO SCH ×2 (13:40→20:53)
[2019-07-25] MEDS: COLCRYS TAB 0.6 MG PO SCH (13:40)
[2019-07-25] MEDS: MAG-OX TAB PO SCH ×2 (13:41→20:54)
[2019-07-25] MEDS: HEMOCYTE-PLUS PO SCH (13:41)
[2019-07-25] MEDS: M.S. CONTIN 30 MG EXTENDED RELEASE PO SCH ×2 (13:42→20:54)
[2019-07-25] MEDS: LEVSIN/MAALOX/LIDOC VISC PO SCH ×4 (13:42→20:53)
[2019-07-25] MEDS: ROCEPHIN VIAL 1 GRAM 1 G in NS 100 ML IV + SPIKE MINIBAG* 100 ML IV SCH (13:43)
[2019-07-25] MEDS: ZITHROMAX INJ 500 MG VIAL 500 MG in D5W 250 ML IV 250 ML IV SCH (13:43)
[2019-07-25] MEDS: REQUIP PO SCH ×2 (13:45→20:53)
[2019-07-25] MEDS: PROTONIX INJ 40 MG VIAL IVP SCH ×2 (13:47→20:52)
[2019-07-25] MEDS: MILK OF MAGNESIA PO SCH ×2 (13:47→20:55)
--- NOTE | 2019-07-25 14:07 | NM ---
HISTORYFOOD INTOLERANCE, NAUSEA, VOMITINGSTUDYHIDA/HEPATOBILIARY SCAN W/EF, 5.4 millicuries of technetium labeled Choletec is injected IV. There is imaging of the right upper quadrant. Patient drank 8 ounces of Ensure and gallbladder ejection fraction is calculated.COMPARISONUltrasound 07/22/2019FINDINGSDelay appearance of gallbladder activity which is not seen internal 30 minutes. Delayed injection into small bowel which is not suggested until 35 minutes. Normal gallbladder ejection fraction of 46 percent.IMPRESSIONNormal gallbladder ejection fraction but there is delayed appearance of the gallbladder and small bowel activity suggesting a degree of hypofunction.Electronically signed by: Colby Hauser (Jul 25, 2019 14:06:16)
[2019-07-25] MEDS: NS 1000 ML 1,000 ML IV SCH (14:15)
[2019-07-25] MEDS: DIFLUCAN 200 MG IV PREMIX* 200 MG/100 ML BAG IV SCH (17:00)
--- NOTE | 2019-07-25 17:29 | DR.CONSULT ---
<Christelle Torres - Last Filed: 07/25/19 17:25> Consult - Consultation for Day of: Date: 07/25/19 - Chief Complaint Chief Complaint: Patient referred for blood in stool history of ulcer. Patinet with no GI complaints. Patient denies dysphagia, dyspepsia, nausea, vomiting, abdominal pain, constipation, diarrhea, melena and hematochezia. Last colon 06/26/16 poor prep, sigmoid diverticulosis. 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 hgb 1.1, Hct 30.2, Plt 112, BUN 14, Creatinine 1.14, T. Bili 0.4, AST 22, ALT 33, ALP 45, Iron 14, Hemoccult on 07/21/19 positive, Hemoccult on 07/25/19 ne gative. - Allergies Allergies/Adverse Reactions: Allergies Allergy/AdvReac Type Severity Reaction Status Date / Time codeine Allergy Verified 07/18/19 17:25 iodine Allergy Verified 07/18/19 17:25 - Past Medical History Past Medical History: Coronary Artery Disease, Hypertension, Diabetes, Anxiety, COPD, PUD, GERD, Arthritis - Past Surgical History Surgical History: Tonsillectomy - Family History Family Medical History: Cancer - Social History Does patient currently use any type of tobacco product: No Have you used tobacco products in the last 12 months: No Type of Tobacco Use: None Does any household member use tobacco: No Alcohol Use: None - Medications Home Medications: codeine Allergy (Verified 07/18/19 17:25) iodine Allergy (Verified 07/18/19 17:25) CONTINUE taking the following medications bupropion HCl 75 mg PO QAM 07/18/19 [History] colchicine [Colcrys] 0.6 mg PO DAILY 07/18/19 [History] ondansetron HCl 4 mg PO Q8-10H PRN 07/18/19 [History] potassium chloride 20 meq PO DAILY 07/18/19 [History] ondansetron HCl 4 mg PO PRN PRN 07/21/19 [History] New Prescriptions B [id number] [Hematinic Plus Vit/Minerals] 1 tab PO ONCE #30 tab 07/25/19 [Rx] - Review of Systems Gastrointestinal: denies: No Symptoms Reported, See HPI, Nausea, Vomiting, Abdominal Pain, Diarrhea, Constipation, Melena, Hematochezia, Other - Physical Exam Vital Signs: Temperature 98.0 F Pulse Rate [Left Brachial] 76 Pulse Rate [Apical] 72 Pulse Rate 74 Respiratory Rate 20 Blood Pressure [Left Arm] 127/63 Blood Pressure [Right Arm] 118/56 Blood Pressure 115/59 O2 Sat by Pulse Oximetry 93 Oriented: Normal Eyes: Normal Ear: Normal Nose: Normal Throat: Normal Respiratory: Clear Throughout Cardiovascular: Normal Auscultation: Bowel Sounds: Normal Palpation: Normal, Other (no distention). negative: Spleen Enlarged, Liver Enlarged, Mass Pulsatile Tenderness: Normal (non tender) Skin: Normal Musculoskeletal: Normal Psychiatric: Normal Mood Description: Calm, Appropriate Affect: Normal Speech Pattern: Clear, Appropriate - Plan Plan: Assessment. 1. anemia, occult GI bleed. Plan. 1. EGD tomorrow and colon on , monitor hgb, Transfuse as needed, cont Protonix. Plan reviewed with Dr. Faith <OMAR FAITH - Last Filed: 07/26/19 14:41> Consult - Medications Home Medications: codeine Allergy (Verified 07/18/19 17:25) iodine Allergy (Verified 07/18/19 17:25) CONTINUE taking the following medications bupropion HCl 75 mg PO QAM 07/18/19 [History] colchicine [Colcrys] 0.6 mg PO DAILY 07/18/19 [History] ondansetron HCl 4 mg PO Q8-10H PRN 07/18/19 [History] potassium chloride 20 meq PO DAILY 07/18/19 [History] ondansetron HCl 4 mg PO PRN PRN 07/21/19 [History] New Prescriptions B [id number] [Hematinic Plus Vit/Minerals] 1 tab PO ONCE #30 tab 07/25/19 [Rx] - Physical Exam Vital Signs: Temperature 98.6 F Pulse Rate [Left Brachial] 64 Pulse Rate [Apical] 72 Pulse Rate 65 Respiratory Rate 18 Blood Pressure [Left Arm] 119/64 Blood Pressure [Right Arm] 118/56 Blood Pressure 115/59 O2 Sat by Pulse Oximetry 98 - Plan Plan: Assessment: 2. 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 Plan: Liver work up will be ordered.
[2019-07-25] MEDS: SNACK - Diabetic Appropriate PO SCH (20:52)
[2019-07-25] MEDS: COLACE CAP 100 MG PO SCH (20:53)
[2019-07-25] MEDS: LIPITOR TAB 20 MG PO SCH (20:54)
[2019-07-26] MEDS: RESTORIL CAP 15 MG PO PRN ×2 (00:01→21:35)
[2019-07-26 05:25] LABS: BASOPHILS % (AUTO) 0.2 % (0.2-1.0); EOSINOPHILS # (AUTO) 0.6 x10^3/uL (0.0-0.2); EOSINOPHILS % (AUTO) 7.3 % (0.9-2.9); HEMATOCRIT 29.7 % (42.0-54.0); HEMOGLOBIN 9.9 g/dL (13.5-18.0); LYMPHOCYTES # (AUTO) 1.8 X10^3/uL (1.3-2.9); LYMPHOCYTES % (AUTO) 22.8 % (21.0-51.0); MEAN CORPUSCULAR HEMOGLOBIN 28.4 pg (27.0-34.0); MEAN CORPUSCULAR HGB CONC 33.5 g/dL (33.0-35.0); MEAN CORPUSCULAR VOLUME 84.7 fL (80.0-100.0); MONOCYTES # (AUTO) 0.6 x10^3/uL (0.3-0.8); MONOCYTES % (AUTO) 7.4 % (0.0-13.0); NEUTROPHILS # (AUTO) 4.8 x10^3/uL (2.2-4.8); NEUTROPHILS % (AUTO) 62.3 % (42.0-75.0); PLATELET COUNT 116 X10^3/uL (150.0-450.0); RED CELL DISTRIBUTION WIDTH 17.7 % (11.6-16.5); WHITE BLOOD COUNT 7.7 X10^3/uL (3.6-10.0)
[2019-07-26 05:37] LABS: ALANINE AMINOTRANSFERASE 33 Units/L (12-78); ALKALINE PHOSPHATASE 45 Units/L (46-116); ASPARTATE AMINO TRANSFERASE 27 Units/L (15-37); BLOOD UREA NITROGEN 11 mg/dL (7-18); CALCIUM 8.1 mg/dL (8.5-10.1); CARBON DIOXIDE 34.3 mmol/L (21-32); CHLORIDE 105 mmol/L (98-107); COR CA(FOR HYPOALB) 8.9 mg/dL (8.5-10.1); CREATININE 1.17 mg/dL (0.70-1.30); SODIUM 141 mmol/L (136-145); TOTAL PROTEIN 5.8 g/dL (6.4-8.2); eGFR NON BLACK RACES > 60 (>60)
[2019-07-26] MEDS: PROTONIX INJ 40 MG VIAL IVP SCH ×2 (08:55→21:34)
[2019-07-26] MEDS: DIFLUCAN 200 MG IV PREMIX* 200 MG/100 ML BAG IV SCH (08:55)
[2019-07-26] MEDS: DUONEB 0.5 MG/3 MG (3 mL) NEB SCH ×4 (10:00→21:10)
[2019-07-26] MEDS: WELLBUTRIN IR (PLAIN) PO SCH (11:48)
[2019-07-26] MEDS: LEVSIN/MAALOX/LIDOC VISC PO SCH ×4 (11:48→21:34)
[2019-07-26] MEDS: REQUIP PO SCH ×2 (11:48→21:34)
[2019-07-26] MEDS: PEPCID TAB 20 MG PO SCH ×2 (11:49→21:35)
[2019-07-26] MEDS: M.S. CONTIN 30 MG EXTENDED RELEASE PO SCH ×2 (11:49→21:34)
[2019-07-26] MEDS: MILK OF MAGNESIA PO SCH ×2 (11:49→21:36)
[2019-07-26] MEDS: MAG-OX TAB PO SCH ×2 (11:49→21:36)
[2019-07-26] MEDS: CARDURA PO SCH (11:50)
[2019-07-26] MEDS: HEMOCYTE-PLUS PO SCH (11:50)
[2019-07-26] MEDS: COLCRYS TAB 0.6 MG PO SCH (11:50)
[2019-07-26] MEDS ORDERED: DIPRIVAN VIAL 20 ML ONE (13:59)
[2019-07-26] MEDS: NS 1000 ML 1,000 ML IV SCH (15:13)
[2019-07-26] MEDS: LIPITOR TAB 20 MG PO SCH (21:35)
[2019-07-26] MEDS: COLACE CAP 100 MG PO SCH (21:35)
[2019-07-26] MEDS: SNACK - Diabetic Appropriate PO SCH (21:35)
[2019-07-27 05:50] LABS: ALANINE AMINOTRANSFERASE 31 Units/L (12-78); ALBUMIN 3.2 g/dL (3.4-5.0); ALKALINE PHOSPHATASE 45 Units/L (46-116); ASPARTATE AMINO TRANSFERASE 26 Units/L (15-37); BLOOD UREA NITROGEN 8 mg/dL (7-18); CALCIUM 8.5 mg/dL (8.5-10.1); CARBON DIOXIDE 35.1 mmol/L (21-32); CHLORIDE 104 mmol/L (98-107); COR CA(FOR HYPOALB) 9.1 mg/dL (8.5-10.1); CREATININE 1.14 mg/dL (0.70-1.30); SODIUM 142 mmol/L (136-145); eGFR NON BLACK RACES > 60 (>60)
[2019-07-27 05:54] LABS: BASOPHILS % (AUTO) 0.5 % (0.2-1.0); EOSINOPHILS # (AUTO) 0.4 x10^3/uL (0.0-0.2); EOSINOPHILS % (AUTO) 6.7 % (0.9-2.9); HEMATOCRIT 30.2 % (42.0-54.0); HEMOGLOBIN 10.1 g/dL (13.5-18.0); LYMPHOCYTES # (AUTO) 1.6 X10^3/uL (1.3-2.9); LYMPHOCYTES % (AUTO) 25.5 % (21.0-51.0); MEAN CORPUSCULAR HEMOGLOBIN 28.2 pg (27.0-34.0); MEAN CORPUSCULAR HGB CONC 33.3 g/dL (33.0-35.0); MEAN CORPUSCULAR VOLUME 84.8 fL (80.0-100.0); MONOCYTES # (AUTO) 0.6 x10^3/uL (0.3-0.8); MONOCYTES % (AUTO) 9.1 % (0.0-13.0); NEUTROPHILS # (AUTO) 3.7 x10^3/uL (2.2-4.8); NEUTROPHILS % (AUTO) 58.2 % (42.0-75.0); PLATELET COUNT 115 X10^3/uL (150.0-450.0); RED BLOOD COUNT 3.56 X10^6/uL (4.7-6.0); WHITE BLOOD COUNT 6.3 X10^3/uL (3.6-10.0)
[2019-07-27] MEDS: DUONEB 0.5 MG/3 MG (3 mL) NEB SCH ×4 (09:12→20:10)
[2019-07-27] MEDS: LEVSIN/MAALOX/LIDOC VISC PO SCH ×4 (10:14→20:13)
[2019-07-27] MEDS: DIFLUCAN 200 MG IV PREMIX* 200 MG/100 ML BAG IV SCH (10:14)
[2019-07-27] MEDS: CARDURA PO SCH (10:15)
[2019-07-27] MEDS: COLCRYS TAB 0.6 MG PO SCH (10:15)
[2019-07-27] MEDS: M.S. CONTIN 30 MG EXTENDED RELEASE PO SCH ×2 (10:16→20:14)
[2019-07-27] MEDS: HEMOCYTE-PLUS PO SCH (10:16)
[2019-07-27] MEDS: DULCOLAX TAB EC 5 MG PO SCH ×2 (10:17→20:13)
[2019-07-27] MEDS: PROTONIX INJ 40 MG VIAL IVP SCH ×2 (10:27→20:12)
[2019-07-27] MEDS: MILK OF MAGNESIA PO SCH ×2 (10:28→20:12)
[2019-07-27] MEDS: PEPCID TAB 20 MG PO SCH ×2 (10:30→20:12)
[2019-07-27] MEDS: MAG-OX TAB PO SCH ×2 (10:30→20:14)
[2019-07-27] MEDS: REQUIP PO SCH ×2 (10:30→20:12)
[2019-07-27] MEDS: WELLBUTRIN IR (PLAIN) PO SCH (10:34)
[2019-07-27] MEDS ORDERED: MIRALAX POWDER (255 GRAMS BTL) PO NR (14:00)
[2019-07-27] MEDS: NS 1000 ML 1,000 ML IV SCH (15:13)
[2019-07-27] MEDS: COLACE CAP 100 MG PO SCH (20:12)
[2019-07-27] MEDS: SNACK - Diabetic Appropriate PO SCH (20:13)
[2019-07-27] MEDS: RESTORIL CAP 15 MG PO PRN (20:14)
[2019-07-27] MEDS: LIPITOR TAB 20 MG PO SCH (20:14)
[2019-07-28 06:05] LABS: ALANINE AMINOTRANSFERASE 34 Units/L (12-78); ALBUMIN 3.6 g/dL (3.4-5.0); ALKALINE PHOSPHATASE 53 Units/L (46-116); ASPARTATE AMINO TRANSFERASE 32 Units/L (15-37); BLOOD UREA NITROGEN 7 mg/dL (7-18); CALCIUM 8.7 mg/dL (8.5-10.1); CARBON DIOXIDE 31.4 mmol/L (21-32); CHLORIDE 103 mmol/L (98-107); COR NA(FOR HYPERGLY) 143 mmol/L (136-145); CREATININE 1.17 mg/dL (0.70-1.30); SODIUM 143 mmol/L (136-145); TOTAL PROTEIN 6.8 g/dL (6.4-8.2); eGFR NON BLACK RACES > 60 (>60)
[2019-07-28 06:07] LABS: BASOPHILS # (AUTO) 0.1 X10^3/uL (0.0-0.1); BASOPHILS % (AUTO) 0.7 % (0.2-1.0); EOSINOPHILS # (AUTO) 0.4 x10^3/uL (0.0-0.2); EOSINOPHILS % (AUTO) 3.6 % (0.9-2.9); HEMOGLOBIN 10.9 g/dL (13.5-18.0); LYMPHOCYTES % (AUTO) 10.3 % (21.0-51.0); MEAN CORPUSCULAR HEMOGLOBIN 27.3 pg (27.0-34.0); MEAN CORPUSCULAR VOLUME 85.2 fL (80.0-100.0); MONOCYTES # (AUTO) 0.6 x10^3/uL (0.3-0.8); MONOCYTES % (AUTO) 6.3 % (0.0-13.0); NEUTROPHILS % (AUTO) 79.1 % (42.0-75.0); PLATELET COUNT 108 X10^3/uL (150.0-450.0); WHITE BLOOD COUNT 10.1 X10^3/uL (3.6-10.0)
[2019-07-28] MEDS ORDERED: SOLU-Medrol 125 MG VIAL ONE (08:34)
[2019-07-28] MEDS ORDERED: SOLU-Medrol 40 MG VIAL ONE (08:35)
[2019-07-28] MEDS: DUONEB 0.5 MG/3 MG (3 mL) NEB SCH ×5 (08:36→21:30)
[2019-07-28] MEDS ORDERED: SOLU-Medrol 40 MG VIAL IVP ONE (08:55)
[2019-07-28] MEDS: PROTONIX INJ 40 MG VIAL IVP SCH ×2 (08:57→21:36)
[2019-07-28] MEDS: DIFLUCAN 200 MG IV PREMIX* 200 MG/100 ML BAG IV SCH (08:58)
[2019-07-28] MEDS ORDERED: NS 1000 ML 1,000 ML IV ONE (09:00)
--- NOTE | 2019-07-28 10:27 | RAD ---
HISTORYSyncopeSTUDYAP chest two viewsCOMPARISONFebruary 2019FINDINGSHeart size upper normal to slightly enlarged with clear lungs and pleural spaces. Right sided pacemaker. Discontinuous left-sided pacemaker wiring.IMPRESSIONNo change; no acute findings.Electronically signed by: CLAIRE LR (Jul 28, 2019 10:26:01)
[2019-07-28] MEDS ORDERED: STERILE WATER IRRIGATION IR ONE (11:06)
[2019-07-28] MEDS ORDERED: DIPRIVAN VIAL 20 ML ONE ×2 (11:21→11:22)
[2019-07-28] MEDS: M.S. CONTIN 30 MG EXTENDED RELEASE PO SCH ×2 (13:58→21:37)
[2019-07-28] MEDS: PEPCID TAB 20 MG PO SCH ×2 (13:59→21:38)
[2019-07-28] MEDS: WELLBUTRIN IR (PLAIN) PO SCH (13:59)
[2019-07-28] MEDS: MAG-OX TAB PO SCH ×2 (14:01→21:37)
[2019-07-28] MEDS: DULCOLAX TAB EC 5 MG PO SCH ×2 (14:01→21:35)
[2019-07-28] MEDS: LEVSIN/MAALOX/LIDOC VISC PO SCH ×3 (14:01→21:34)
[2019-07-28] MEDS: CARDURA PO SCH (14:03)
[2019-07-28] MEDS: MILK OF MAGNESIA PO SCH ×2 (14:18→21:37)
[2019-07-28] MEDS: COLCRYS TAB 0.6 MG PO SCH (14:19)
[2019-07-28] MEDS: HEMOCYTE-PLUS PO SCH (14:19)
[2019-07-28] MEDS: REQUIP PO SCH ×2 (14:20→21:37)
[2019-07-28] MEDS: NS 1000 ML 1,000 ML IV SCH (14:21)
--- NOTE | 2019-07-28 18:08 | PCM.PROG ---
Progress Note - Progress Note for Day of Date of Exam: 07/28/19 - Subjective Subjective: Mr. Arambula is an 84-year-old white male who was admitted with congestive heart failure exacerbation, altered mental status induced by hypoxia with chronic obstructive pulmonary disease exacerbation. The patient has been treated for respiratory symptoms, as well as congestive heart failure and had increased abdominal pain, distention, and right upper abdominal pain, nausea, and vomiting. The patient had a positive occult stool. He has had a GI consult with an EGD yesterday with multiple gastric ulcers. He is currently on PPI therapy two times a day and GI cocktail, which he reports has helped some. Patient is NPO for colonoscopy this am. The patients hemoglobin has continued to be on the low side, but it is stable. He is on iron replacement therapy. The patient denies any vomiting. Pt did have multple loose BMs due to bowel prep. Nursing staff reports pt had fainting episode this am while going to restroom for BM. Pt had cxr, ekg stable. Pt was alert and responsive on exam this morning, with increase expiratory wheezing. Pt was given IV solu medrol 40mg x 1 dose and continued with duo nebs. Pt's BP was slightly lower than previous. Pt reports feeling dehydrated following clear liquids diet and bowel prep. His renal function is stable and hgb today. We will continue with scope today, plan to resume soft diet following procedure as tolerated. - Past Medical Family Social History Past Med/Fam/Surg Hx: No changes since H&P Allergies: Allergies codeine Allergy (Verified 07/18/19 17:25) iodine Allergy (Verified 07/18/19 17:25) - Review of Systems ROS: No change since H&P - Vital Signs and I&O's Vital Signs: Temperature 98.8 F Pulse Rate [Left Brachial] 82 Pulse Rate [Apical] 90 Pulse Rate 94 Respiratory Rate 16 Blood Pressure [Left Arm] 134/56 Blood Pressure [Right Arm] 118/56 Blood Pressure 115/59 O2 Sat by Pulse Oximetry 99 Intake and Output: Intake & Output 07/26/19 07/27/19 07/28/19 07/29/19 11:59 11:59 11:59 11:59 Intake Total 1210 / 1210 960 / 960 1440 / 1440 360 / 360 Output Total 400 / 400 550 / 550 Balance 810 / 810 960 / 960 1440 / 1440 -190 / -190 - Physical Exam Oriented: Normal Eyes: Normal Ear: Normal Nose: Normal Throat: Normal Respiratory: Wheezes Cardiovascular: Normal : Normal Auscultation: Bowel Sounds: Normal Tenderness: Epigastric Skin: Decreased Turgur Musculoskeletal: Normal Psychiatric: Normal Mood Description: Calm, Appropriate Affect: Normal Speech Pattern: Clear, Appropriate - Laboratory and Diagnostics Result Diagrams: 07/28/19 05:15 07/28/19 05:15 Labs: 07/21/19 17:15 Stool Stool Culture - Final 07/21/19 17:15 Stool - Final 07/20/19 17:50 Sputum - Expectorated Sputum Sputum Culture - Final 07/20/19 17:50 Sputum - Expectorated Sputum - Final Laboratory WBC 10.1 X10^3/uL (3.6-10.0) H 07/28/19 05:15 RBC 4.00 X10^6/uL (4.7-6.0) L 07/28/19 05:15 Hgb 10.9 g/dL (13.5-18.0) L 07/28/19 05:15 Hct 34.0 % (42.0-54.0) L 07/28/19 05:15 MCV 85.2 fL (80.0-100.0) 07/28/19 05:15 MCH 27.3 pg (27.0-34.0) 07/28/19 05:15 MCHC 32.0 g/dL (33.0-35.0) L 07/28/19 05:15 RDW 18.0 % (11.6-16.5) H 07/28/19 05:15 Plt Count 108 X10^3/uL (150.0-450.0) L 07/28/19 05:15 Plt Count Comment Decreased (ADEQUATE) 07/22/19 05:19 MPV 9.0 fL (7.4-11.0) 07/28/19 05:15 Neut % (Auto) 79.1 % (42.0-75.0) H 07/28/19 05:15 Lymph % (Auto) 10.3 % (21.0-51.0) L 07/28/19 05:15 [place] % (Auto) 6.3 % (0.0-13.0) 07/28/19 05:15 Eos % (Auto) 3.6 % (0.9-2.9) H 07/28/19 05:15 Baso % (Auto) 0.7 % (0.2-1.0) 07/28/19 05:15 Neut # (Auto) 8.0 x10^3/uL (2.2-4.8) H 07/28/19 05:15 Lymph # (Auto) 1.0 X10^3/uL (1.3-2.9) L 07/28/19 05:15 [place] # (Auto) 0.6 x10^3/uL (0.3-0.8) 07/28/19 05:15 Eos # (Auto) 0.4 x10^3/uL (0.0-0.2) H 07/28/19 05:15 Baso # (Auto) 0.1 X10^3/uL (0.0-0.1) 07/28/19 05:15 Absolute Nucleated RBC 0.0 /100WBC 07/28/19 05:15 Total Counted 100 07/22/19 05:19 Neutrophils % (Manual) 89 % (39-76) H 07/22/19 05:19 Band Neutrophils % 2 % (0-10) 07/22/19 05:19 Lymphocytes % (Manual) 6 % (13-43) L 07/22/19 05:19 Monocytes % (Manual) 3 % (4-9) L 07/22/19 05:19 Plt Morphology Comment Normal (NORMAL) 07/22/19 05:19 RBC Morphology Normal (NORMAL) 07/22/19 05:19 Sample Site Rr 07/19/19 01:59 ABG pH 7.440 (7.35-7.45) 07/19/19 01:59 ABG pCO2 53.0 mmHg (35.0-45.0) H* 07/19/19 01:59 ABG pO2 138.0 mmHg (80.0-100.0) H 07/19/19 01:59 ABG HCO3 36.0 mmol/L (22-26) H* 07/19/19 01:59 ABG O2 Saturation 99.0 % (90-100) 07/19/19 01:59 ABG Base Excess 10.1 mmol/L (-2.0-2.0) H 07/19/19 01:59 Romain Test Pos 07/19/19 01:59 A-a Gradient 81.0 mmHg 07/19/19 01:59 FiO2 40.0 07/19/19 01:59 Blood Gas Comments Marianne well 07/19/19 01:59 Sodium 143 mmol/L (136-145) 07/28/19 05:15 Corrected Sodium 143 mmol/L (136-145) 07/28/19 05:15 Potassium 4.5 mmol/L (3.5-5.1) 07/28/19 05:15 Chloride 103 mmol/L (98-107) 07/28/19 05:15 Carbon Dioxide 31.4 mmol/L (21-32) 07/28/19 05:15 BUN 7 mg/dL (7-18) 07/28/19 05:15 Creatinine 1.17 mg/dL (0.70-1.30) 07/28/19 05:15 Est GFR (MDRD) Af Amer > 60 (>60) 07/28/19 05:15 Est GFR (MDRD) Non-Af > 60 (>60) 07/28/19 05:15 Glucose 115 mg/dL (65-99) H 07/28/19 05:15 POC Glucose (mg/dL) 173 mg/dL (65-99) H 07/28/19 16:46 Lactic Acid 1.7 mmol/L (0.4-2.0) 07/18/19 18:10 Calcium 8.7 mg/dL (8.5-10.1) 07/28/19 05:15 Corrected Calcium TNP 07/28/19 05:15 Magnesium 2.2 mg/dL (1.7-2.9) 07/19/19 05:31 Iron 44 ug/dL (50-175) L 07/26/19 04:40 TIBC 268 ug/dL (250-450) 07/26/19 04:40 % Saturation 16.4 % (11.0-46.0) 07/26/19 04:40 Transferrin 226 mg/dL (202-364) 07/19/19 14:21 Ferritin 321 ng/mL (26-388) 07/26/19 04:40 Total Bilirubin 0.90 mg/dL (0.2-1.0) 07/28/19 05:15 AST 32 Units/L (15-37) 07/28/19 05:15 ALT 34 Units/L (12-78) 07/28/19 05:15 Alkaline Phosphatase 53 Units/L (46-116) 07/28/19 05:15 Creatine Kinase 127 Units/L (39-308) 07/19/19 14:03 CK-MB (CK-2) < 1.0 ng/mL (0-4.0) 07/19/19 14:03 CK/CKMB % Calc 0.8 % (<4) 07/19/19 14:03 Troponin I < 0.02 ng/mL (0-1.5) 07/19/19 14:03 Total Protein 6.8 g/dL (6.4-8.2) 07/28/19 05:15 Albumin 3.6 g/dL (3.4-5.0) 07/28/19 05:15 Globulin 3.2 g/dL (2.5-4.5) 07/28/19 05:15 Albumin/Globulin Ratio 1.1 Ratio (1.1-2.1) 07/28/19 05:15 Triglycerides 99 mg/dL (0-150) 07/19/19 05:31 Cholesterol 149 mg/dL (0-200) 07/19/19 05:31 LDL Cholesterol, Calc 73 mg/dL (0-100) 07/19/19 05:31 HDL Cholesterol 56 mg/dL (40-60) 07/19/19 05:31 Cholesterol/HDL Ratio 2.7 (0.0-5.0) 07/19/19 05:31 Vitamin B12 > 2000 pg/mL (193-986) H 07/19/19 14:21 Folate > 20.0 ng/mL (>8.6) 07/19/19 14:21 Stool Description 50 g. green/umformed 07/25/19 04:30 Stl Occult Blood (IFOB) Negative (NEGATIVE) 07/25/19 04:30 Stool for White Cells Negative (NEGATIVE) 07/21/19 17:15 Stl C. diff Tox B Gene Negative (NEGATIVE) 07/21/19 17:15 Stl C. diff [id number] Negative (NEGATIVE) 07/21/19 17:15 Cryptosporid parvum Ag Negative (NEGATIVE) 07/21/19 17:15 Giardia lamblia Ag Negative (NEGATIVE) 07/21/19 17:15 Tissue Pathology To follow 07/28/19 11:30 - Plan (1) Gastritis Status: Acute Plan: Continue two times a day PPI therapy. Clear liquids today for bowel prep. Continue to monitor hemoglobin and hematocrit. The patient had a positive occult stool, as well as anemia. times a day. The patient is for colonoscopy per Dr. Faith. Pt continued on Duonebs, supplemental oxygen, respiratory therapy, and pulmonary toileting. He has completed his round of antibiotic tr eatment. We will continue cardiac monitoring, supplemental oxygen, and strict I&Os. We will continue to monitor. Diuretics as needed. (2) Pneumonia Status: Acute (3) Altered mental status Status: Acute Qualifiers: Altered mental status type: disorientation Qualified Code(s): R41.0 - Disorientation, unspecified Plan: R/T HYPOXIA. CE AND EKG ON ADMISSION. STRICT I & OS, IV LASIX GIVEN IN ER. SUPPLEMENTAL O2, RESP THERAPY. SPUTUM CULTURE, IV ATBX, ABG ON ADMISSION (4) Low oxygen saturation Status: Acute (5) CHF (congestive heart failure) Status: Acute (6) Rheumatoid arthritis Status: Acute Qualifiers: Rheumatoid arthritis location: knee Rheumatoid factor presence: unspecified presence Laterality: bilateral Qualified Code(s): M06.9 - Rheumatoid arthritis, unspecified (7) Diabetes mellitus Status: Acute Qualifiers: Diabetes mellitus type: type 2 Diabetes mellitus mcfp insulin use: without mcfp use Diabetes mellitus complication status: without complication Qualified Code(s): E11.9 - Type 2 diabetes mellitus without complications (8) Chronic GERD Status: Acute (9) Anemia Status: Acute (10) Lower GI bleed Status: Acute
[2019-07-28] MEDS: COLACE CAP 100 MG PO SCH (21:34)
[2019-07-28] MEDS: LIPITOR TAB 20 MG PO SCH (21:35)
[2019-07-28] MEDS: SNACK - Diabetic Appropriate PO SCH (21:38)
[2019-07-29] MEDS: NS 1000 ML 1,000 ML IV SCH ×2 (00:04→14:33)
[2019-07-29 05:23] LABS: BASOPHILS % (AUTO) 0.1 % (0.2-1.0); EOSINOPHILS % (AUTO) 0.1 % (0.9-2.9); HEMATOCRIT 28.2 % (42.0-54.0); HEMOGLOBIN 9.3 g/dL (13.5-18.0); LYMPHOCYTES # (AUTO) 0.6 X10^3/uL (1.3-2.9); LYMPHOCYTES % (AUTO) 5.4 % (21.0-51.0); MEAN CORPUSCULAR HEMOGLOBIN 27.6 pg (27.0-34.0); MEAN CORPUSCULAR HGB CONC 32.8 g/dL (33.0-35.0); MEAN CORPUSCULAR VOLUME 84.1 fL (80.0-100.0); MEAN PLATELET VOLUME 8.8 fL (7.4-11.0); MONOCYTES # (AUTO) 0.7 x10^3/uL (0.3-0.8); MONOCYTES % (AUTO) 6.1 % (0.0-13.0); NEUTROPHILS # (AUTO) 10.4 x10^3/uL (2.2-4.8); NEUTROPHILS % (AUTO) 88.3 % (42.0-75.0); PLATELET COUNT 100 X10^3/uL (150.0-450.0); RED BLOOD COUNT 3.35 X10^6/uL (4.7-6.0); RED CELL DISTRIBUTION WIDTH 18.2 % (11.6-16.5); WHITE BLOOD COUNT 11.8 X10^3/uL (3.6-10.0)
[2019-07-29 05:45] LABS: ALANINE AMINOTRANSFERASE 27 Units/L (12-78); ALBUMIN 2.9 g/dL (3.4-5.0); ALKALINE PHOSPHATASE 39 Units/L (46-116); ASPARTATE AMINO TRANSFERASE 22 Units/L (15-37); BLOOD UREA NITROGEN 13 mg/dL (7-18); CALCIUM 8.6 mg/dL (8.5-10.1); CHLORIDE 104 mmol/L (98-107); COR CA(FOR HYPOALB) 9.5 mg/dL (8.5-10.1); COR NA(FOR HYPERGLY) 141 mmol/L (136-145); CREATININE 1.21 mg/dL (0.70-1.30); SODIUM 140 mmol/L (136-145); TOTAL PROTEIN 5.9 g/dL (6.4-8.2); eGFR NON BLACK RACES > 60 (>60)
[2019-07-29] MEDS: DUONEB 0.5 MG/3 MG (3 mL) NEB SCH (09:20)
[2019-07-29] MEDS: DIFLUCAN 200 MG IV PREMIX* 200 MG/100 ML BAG IV SCH (09:49)
[2019-07-29] MEDS: PEPCID TAB 20 MG PO SCH (09:50)
[2019-07-29] MEDS: CARDURA PO SCH (09:51)
[2019-07-29] MEDS: LEVSIN/MAALOX/LIDOC VISC PO SCH ×2 (09:51→14:29)
[2019-07-29] MEDS: MAG-OX TAB PO SCH (09:52)
[2019-07-29] MEDS: M.S. CONTIN 30 MG EXTENDED RELEASE PO SCH (09:52)
[2019-07-29] MEDS: HEMOCYTE-PLUS PO SCH (09:52)
[2019-07-29] MEDS: WELLBUTRIN IR (PLAIN) PO SCH (09:52)
[2019-07-29] MEDS: COLCRYS TAB 0.6 MG PO SCH (09:52)
[2019-07-29] MEDS: REQUIP PO SCH (09:52)
[2019-07-29] MEDS: MILK OF MAGNESIA PO SCH (09:54)
[2019-07-29] MEDS: PROTONIX INJ 40 MG VIAL IVP SCH (09:54)
[2019-07-29] MEDS: DULCOLAX TAB EC 5 MG PO SCH (09:54)
[2019-07-29] MEDS ORDERED: ROBITUSSIN CF SYRUP PO SCH (10:00)
[2019-07-29 15:10] VITALS: BP 138/68
[2019-07-29 21:24] LABS: HEPATITIS B SURFACE ANTIGEN Negative (Negative)
[2019-07-29 21:26] LABS: ANTI-NUCLEAR ANTIBODY TEST None Detected (None Detected)
== END 2019-07-29 15:00 | disposition home health service (06) | DRG 291 ==
LOC: ER 17:24 → OBS 23:27 → MED/SURG 07-22 14:20
PROVIDERS: ADMIT Internal Medicine; ATTEND Internal Medicine
DX: N28.9 Disorder of kidney and ureter, unspecified; Y92.230 Patient room in hospital as the place of occurrence of the external cause; I50.9 Heart failure, unspecified; K64.8 Other hemorrhoids; E11.65 Type 2 diabetes mellitus with hyperglycemia; D50.8 Other iron deficiency anemias; Z95.0 Presence of cardiac pacemaker; K52.89 Other specified noninfective gastroenteritis and colitis; R60.0 Localized edema; M06.89 Other specified rheumatoid arthritis, multiple sites; J18.8 Other pneumonia, unspecified organism; J44.1 Chronic obstructive pulmonary disease with (acute) exacerbation; K22.4 Dyskinesia of esophagus; K63.5 Polyp of colon; K21.9 Gastro-esophageal reflux disease without esophagitis; W18.39XA Other fall on same level, initial encounter; I25.10 Atherosclerotic heart disease of native coronary artery without angina pectoris; K22.2 Esophageal obstruction; R40.4 Transient alteration of awareness; K92.2 Gastrointestinal hemorrhage, unspecified
CPT/HCPCS: 36415; 36600; 70450; 71010; 71045; 74000; 74018; 76705; 78227; 80053; 80061; 80074; 82103; 82270; 82390; 82525; 82550; 82553; 82607; 82728; 82746; 82803; 83516; 83540; 83550; 83605; 83630; 83735; 84466; 84484; 85025; 86038; 86256; 86308; 87045; 87070; 87205; 87328; 87329; 87427; 87449; 87493; 87899; 88305; 88342; 93005; 94640; 94660; 94760; 96365; 96374; 96375; 97110; 97116; 97162; 97530; 99100; 99284; A4216; A4217; A4222; A4618; A7030; C9113; J0456; J0696; J1450; J1650; J1756; J1815; J1940; J2270; J2405; J2704; J2765; J2920; J7030; J7050; J7060; J7620

== ENCOUNTER 2019-07-29 20:29 | Inpatient (IN) ==
--- NOTE | 2019-07-29 22:03 | DR.GENAD ---
HPI - PCP Primary Care Physician: OCTAVIO - Complaint/Symptoms Chief Complaint Doctors Comments: Patient released from the hospital today with altered mental status after being in the hospitala 14 days. Daughter states the patient was released today and he has been seeing things and putting the baby under the cover and seeing animals in the room. Daughter states she is unable to take care of patient at home. Patient states he is welling to go for assistance if we feel he needs it. Patient denies chest pain, SOB, cold or cough. Patient knows his name and that he is at the hosptital. Daughter states she do not have power of authority and she has been trying to contact Dr. Ren today but can not get an answer. Patient states he refused to do therapy in the hospital because he could not set up to do the therapy. Chief Complaint:: PT'S DAUGHTER STATES" HE'S JUST SO CONFUSED HE'S RUNNING AFTER [employer] AND PLAYING WITH THE BABY THAT ISN'T THERE. HE KEEPS GRAPPING UP INTO THE AIR LIKE HE IS TRYING TO GET SOMETHING THAT ISN'T THERE. I JUST CAN'T HANDLE HIM RIGHT NOW." Self Treatment fo Chief Complaint: PT WAS JUST RELEASED FROM HOSPITAL AFTER A 2 WEEK STAY TODAY AROUND 3 PM - Nurses notes reviewed Nurses Notes Review: Yes - Source History Provided: Patient, Family Member - Mode of Arrival Mode of Arrival: EMS - Timing Onset of Chief Complaint: 07/17/19 Came on: Gradually - Duration Duration: Intermittent How lon Duration: Weeks - Severity Severity: Mild - Modifying Factors Worsens:: nothing Improves:: nothing PMH - PMH Past Medical History: Yes Past Medical History: Coronary Artery Disease, Hypertension, Diabetes, Anxiety, COPD, PUD, GERD, Arthritis Past Surgical History: Yes Surgical History: Tonsillectomy - Family History History of Family Medical Conditions: Yes Family Medical History: Cancer - Social History Does any household member use tobacco: No Alcohol Use: None Do you use any recreational Drugs:: No - infectious screening In the last 2 months have you had wt loss of >10#?: NO Have you had fever, night sweats or hemotysis?: No Have you traveled outside the country in the last 6 months?: No Isolation: Standard ROS - Review of Systems Constitutional: No Symptoms Reported Eyes: No Symptoms Reported. negative: See HPI, Eye Pain, Blurred Vision, Tearing, Discharge, Photophobia, Diplopia, Other ENTM: No Symptoms Reported Respiratoy: No Symptoms Reported Cardiovascular: No Symptoms Reported. negative: See HPI, Chest Pain, Edema, Palpitations, Syncope, Cyanosis, Skin Mottling, Other Gastrointestinal/Abdominal: No Symptoms Reported Genitourinary: No Symptoms Reported Neurological: No Symptoms Reported, Weakness. negative: See HPI, Anxiety, Dep ressed, Emotional Problems, Headache, Numbness, Paresthesia, Pre-existing Deficit, Seizure, Tingling, Tremors, Dizziness, Problems Walking, Speech Problem, Other Musculoskeletal: No Symptoms Reported Integumentary: No Symptoms Reported Hematologic/Lymphatic: No Symptoms Reported Endocrine: No Symptoms Reported Psychiatric: No Symptoms Reported, Hallucinations. negative: See HPI, Anxiety, Depression, Excessive crying, Suicidal, Other PE - General Limitations: No Limitations General Appearance: Alert, In No Apparent Distress - Head Head Exam: Normal Inspection, Atraumatic, Normocephalic - Eyes Eye exam: Normal Appearance, PERRL, EOMI. negative: Scleral Icterus, Conjunctival Injection, Nystagmus, Miosis, Mydrasis, Periorbital Swelling, Periorbital Tenderness, Other - ENT ENT Exam: Normal Exam, Normal Oropharynx, Normal External Ear Exam, Mucous Membranes Moist, TM's Normal Bilaterally External Ear Exam: Normal External Inspection TM/Canal Exam: Bilateral Normal Nose Exam: Normal Nose Exam. negative: Sinus Tenderness, Nasal Deviation, Crepitus, Septal Hematoma, Laceration, Abrasion, Other Mouth Exam: Normal Inspection. negative: Drooling, Trismus, Lip Swelling, Tongue Elevation, Tongue Swelling, Laceration, Other Throat Exam: Normal Inspection. negative: Tonsillar Erythema, Tonsillomegaly, Tonsillar Exudate, R Peritonsillar Mass, L Peritonsillar Mass, Muffled Voice, Other - Neck Neck Exam: Normal Inspection, Full ROM, Trachea Midline. negative: Tenderness, Meningismus, Lymphadenopathy, Thyromegaly, Other - Chest Chest Inspection: Normal Inspection, Symmetric Chest Wall Rise. negative: Tenderness, Rash, Abscess, Other - Respiratory Respiratory Exam: Normal Lung Sounds Bilat Respiratory Exam: Bilateral Clear to Auscultation - Cardiovascular Cardiovascular Exam: Regular Rate, Normal Rhythm, Normal Heart Sounds. negative: Bradycardia, Tachycardia, Irregular Rhythm, Systolic Murmur, Diastolic Murmur, Rubs, Gallop, Clicks, JVD, +S1, +S2, +S3, +S4, Other - Abdominal Exam Abdominal Exam: Normal Inspection, Normal Bowel Sounds, Soft. negative: Distention, Tenderness, Guarding, Rebound, Rigidity, Dimnished Bowel Sounds, Hyperactive Bowel Sounds, Hypoactive Bowel Sounds, Organomegaly, Trauma, Incision, Ascites, Mass, Bruit, Pulsatile Mass, Hernia, Other Abdominal Tenderness: negative: RUQ, RLQ, LUQ, LLQ, Epigastrium, Suprapubic, Diffuse, Mild, Moderate, Severe, Other - Extremities Extremities Exam: Normal Inspection, Full ROM, Normal Capillary Refill. negative: Tenderness, Edema, Joint Swelling, Calf Tenderness, Other - Back Back Exam: Normal Inspection, Full ROM. negative: Tenderness, (R) CVA Tenderness, (L) CVA Tenderness, Muscle Spasm, Paraspinal Tenderness, Vertebral Tenderness, Rashes, (R) Sciatic Notch Tenderness, (L) Sciatic Notch Tendern, (R) Straight Leg Raise, (L) Straight Leg Raise, Other - Neurologic Neurological Exam: Alert, Oriented X3, CN II-XII Intact, Reflexes Normal. negative: Normal Gait (gait not tested) - Psychiatric Psychiatric Exam: Normal Affect, Normal Mood. negative: Depressed, Agitated, Anxious, Flat Affect, Manic, Homicidal Ideation, Suicidal Ideation, Other - Skin Skin Exam: Warm, Dry, Intact, Normal Color. negative: Rash, Cyanosis, Diaphoresis, Erythema, Pallor, Mottled, Other - Vital Signs Vitals: Temperature 98.2 F Pulse Rate 72 Respiratory Rate 20 Blood Pressure [Left Arm] 114/52 Blood Pressure [Right Arm] 138/68 Blood Pressure 137/74 O2 Sat by Pulse Oximetry 99 Course - Reevaluation 1st: - Consultation Called: 23:40 Call Returned: 23:40 (Dr. Clark to admit) - Education/Counseling Education/Counseling: Patient, Family Educated On: Treatment, Diagnosis, Needs for Follow Up ROR - Labs Reviewed Laboratory Results Reviewed?: Yes (All labs and x-ray results reviewed and discussed with patient) Result Diagrams: 07/29/19 22:05 07/29/19 22:05 - XRAY XRAY Interpreted by: Radiologist (CT head: No definite CT evidence of acute intracranial abnormality. Findings suggesting changes of chronic small vessel ischemic disease.) - Labs Reviewed Laboratory: WBC 8.3 X10^3/uL (3.6-10.0) 07/29/19 22:05 RBC 3.36 X10^6/uL (4.7-6.0) L 07/29/19 22:05 Hgb 9.4 g/dL (13.5-18.0) L 07/29/19 22:05 Hct 28.6 % (42.0-54.0) L 07/29/19 22:05 MCV 85.0 fL (80.0-100.0) 07/29/19 22:05 MCH 27.9 pg (27.0-34.0) 07/29/19 22:05 MCHC 32.9 g/dL (33.0-35.0) L 07/29/19 22:05 RDW 18.2 % (11.6-16.5) H 07/29/19 22:05 Plt Count 98 X10^3/uL (150.0-450.0) L 07/29/19 22:05 MPV 8.7 fL (7.4-11.0) 07/29/19 22:05 Neut % (Auto) 72.6 % (42.0-75.0) 07/29/19 22:05 Lymph % (Auto) 16.4 % (21.0-51.0) L 07/29/19 22:05 [place] % (Auto) 8.1 % (0.0-13.0) 07/29/19 22:05 Eos % (Auto) 2.6 % (0.9-2.9) 07/29/19 22:05 Baso % (Auto) 0.3 % (0.2-1.0) 07/29/19 22:05 Neut # (Auto) 6.0 x10^3/uL (2.2-4.8) H 07/29/19 22:05 Lymph # (Auto) 1.4 X10^3/uL (1.3-2.9) 07/29/19 22:05 [place] # (Auto) 0.7 x10^3/uL (0.3-0.8) 07/29/19 22:05 Eos # (Auto) 0.2 x10^3/uL (0.0-0.2) 07/29/19 22:05 Baso # (Auto) 0.0 X10^3/uL (0.0-0.1) 07/29/19 22:05 Absolute Nucleated RBC 0.0 /100WBC 07/29/19 22:05 PT 13.7 SECONDS (11.8-14.3) 07/29/19 22:05 INR Target Range - 07/29/19 22: INR 1.09 (0.8-1.3) 07/29/19 22:05 APTT 30.0 SECONDS (22.9-36.5) 07/29/19 22:05 PTT Comment - 07/29/19 22:05 D-Dimer 1180 ng/mL (0-400) H* 07/29/19 22:05 Sodium 140 mmol/L (136-145) 07/29/19 22:05 Corrected Sodium TNP 07/29/19 22:05 Potassium 4.0 mmol/L (3.5-5.1) 07/29/19 22:05 Chloride 103 mmol/L (98-107) 07/29/19 22:05 Carbon Dioxide 33.2 mmol/L (21-32) H 07/29/19 22:05 BUN 16 mg/dL (7-18) 07/29/19 22:05 Creatinine 1.26 mg/dL (0.70-1.30) 07/29/19 22:05 Est GFR (MDRD) Af Amer > 60 (>60) 07/29/19 22:05 Est GFR (MDRD) Non-Af 58 (>60) L 07/29/19 22:05 Glucose 106 mg/dL (65-99) H 07/29/19 22:05 Calcium 8.5 mg/dL (8.5-10.1) 07/29/19 22:05 Corrected Calcium 9.2 mg/dL (8.5-10.1) 07/29/19 22:05 Magnesium 2.3 mg/dL (1.7-2.9) 07/29/19 22:05 Total Bilirubin 0.60 mg/dL (0.2-1.0) 07/29/19 22:05 AST 22 Units/L (15-37) 07/29/19 22:05 ALT 28 Units/L (12-78) 07/29/19 22:05 Alkaline Phosphatase 43 Units/L (46-116) L 07/29/19 22:05 Creatine Kinase 118 Units/L (39-308) 07/29/19 22:05 CK-MB (CK-2) 2.5 ng/mL (0-4.0) 07/29/19 22:05 CK/CKMB % Calc 2.1 % (<4) 07/29/19 22:05 Troponin I < 0.02 ng/mL (0-1.5) 07/29/19 22:05 Total Protein 6.3 g/dL (6.4-8.2) L 07/29/19 22:05 Albumin 3.1 g/dL (3.4-5.0) L 07/29/19 22:05 Globulin 3.2 g/dL (2.5-4.5) 07/29/19 22:05 Albumin/Globulin Ratio 1.0 Ratio (1.1-2.1) L 07/29/19 22:05 - XRAY Xray Findings: CXR: Cartdiomegaly and chronic lung changes and pleural thickening/trace effusion left, similar to the prior. (KEVIN ALANIZ) Opioid - Opioid Risk Tool Age (Ciaran box if 16-45): No History of Preadolescent Sexual Abuse: No Total: 0 Total Score Risk Category: Low Risk - Diagnosis Discharge Problem: Abnormal laboratory results for respiratory system, Hallucination, visual, Cardiomegaly, Pleural effusion, left, Anemia, normocytic normochromic, Chronic cerebral ischemia - Discharge Plan Disposition: ADMITTED INPATIENT Condition: Stable - Follow ups/Referrals Follow ups/Referrals: RIKA REN [Primary Care Provider] - 3 days - Instructions
[2019-07-29 22:19] LABS: BASOPHILS % (AUTO) 0.3 % (0.2-1.0); EOSINOPHILS # (AUTO) 0.2 x10^3/uL (0.0-0.2); EOSINOPHILS % (AUTO) 2.6 % (0.9-2.9); HEMATOCRIT 28.6 % (42.0-54.0); HEMOGLOBIN 9.4 g/dL (13.5-18.0); LYMPHOCYTES # (AUTO) 1.4 X10^3/uL (1.3-2.9); LYMPHOCYTES % (AUTO) 16.4 % (21.0-51.0); MEAN CORPUSCULAR HEMOGLOBIN 27.9 pg (27.0-34.0); MEAN CORPUSCULAR HGB CONC 32.9 g/dL (33.0-35.0); MEAN PLATELET VOLUME 8.7 fL (7.4-11.0); MONOCYTES # (AUTO) 0.7 x10^3/uL (0.3-0.8); MONOCYTES % (AUTO) 8.1 % (0.0-13.0); NEUTROPHILS % (AUTO) 72.6 % (42.0-75.0); PLATELET COUNT 98 X10^3/uL (150.0-450.0); RED BLOOD COUNT 3.36 X10^6/uL (4.7-6.0); RED CELL DISTRIBUTION WIDTH 18.2 % (11.6-16.5); WHITE BLOOD COUNT 8.3 X10^3/uL (3.6-10.0)
[2019-07-29 22:32] LABS: BLOOD UREA NITROGEN 16 mg/dL (7-18); CALCIUM 8.5 mg/dL (8.5-10.1); CARBON DIOXIDE 33.2 mmol/L (21-32); CHLORIDE 103 mmol/L (98-107); CREATININE 1.26 mg/dL (0.70-1.30); SODIUM 140 mmol/L (136-145); TROPONIN I < 0.02 ng/mL (0-1.5); eGFR NON BLACK RACES 58 (>60)
--- NOTE | 2019-07-29 22:35 | CT ---
HISTORYAMSSTUDYBRAIN W/O CONCOMPARISONFebruary 2019 and January 21, 2018TECHNIQUESerial axial images were obtained from the skull base to the vertex without infusion of IV contrast. Coronal and sagittal images were also submitted. Dose reduction techniques including Automated Exposure Control (AEC) and adjustment of mA and kV were utilized.FINDINGSNo definite evidence of acute intracranial hemorrhage or mass is identified. The ventricles, sulci, and cisterns are grossly unremarkable in appearance. Patchy areas of decreased attenuation within the periventricular, subcortical, and subinsular white matter suggest changes of chronic small vessel ischemic disease. No evidence of significant midline shift is identified. Images again demonstrate low-attenuation extra-axial fluid collections bilaterally similar to prior exams dating back to January 21, 2018. The visualized paranasal sinuses are grossly unremarkable. If symptoms or clinical concerns persist recommend continued follow up for further evaluation.IMPRESSIONNo definite CT evidence of acute intracranial abnormality is appreciated.Findings suggesting changes of chronic small vessel ischemic disease.Bilateral extra-axial fluid collections which do not appear to significantly changed dating back to at least January 21, 2018.Electronically signed by: SERAFIN CLAUDIO (Jul 29, 2019 22:34:07)
[2019-07-29 22:37] LABS: ALANINE AMINOTRANSFERASE 28 Units/L (12-78); ALBUMIN 3.1 g/dL (3.4-5.0); ALKALINE PHOSPHATASE 43 Units/L (46-116); ASPARTATE AMINO TRANSFERASE 22 Units/L (15-37); CKMB % 2.1 % (<4); COR CA(FOR HYPOALB) 9.2 mg/dL (8.5-10.1); CREATINE KINASE 118 Units/L (39-308); CREATINE KINASE MB 2.5 ng/mL (0-4.0); MAGNESIUM 2.3 mg/dL (1.7-2.9); TOTAL PROTEIN 6.3 g/dL (6.4-8.2)
--- NOTE | 2019-07-29 22:58 | RAD ---
Chest AP portableIndication: Chest painComparison July 28, 2019FINDINGSThere is no pneumothorax or right effusion. 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 Right pacemaker noted. Heart size enlarged. Trace left effusion likely. Mild increased interstitial markings noted.IMPRESSIONCardiomegaly and chronic lung changes and pleural thickening/trace effusion left, similar to the prior. Follow-up to resolution to exclude underlying lesion.Electronically signed by: MAXINE IBARRA (Jul 29, 2019 22:57:04)
[2019-07-29] MEDS ORDERED: PROTONIX INJ 40 MG VIAL IVP ONE (23:23)
[2019-07-29] MEDS ORDERED: LOVENOX INJ 80 MG SYR SC ONE (23:30)
[2019-07-29] MEDS ORDERED: PROTONIX INJ 40 MG VIAL ONE (23:30)
[2019-07-29] MEDS ORDERED: LOVENOX INJ 80 MG SYR SC SCH (23:45)
[2019-07-30 00:03] LABS: BILIRUBIN,URINE NEGATIVE (NEGATIVE); BLOOD/HEMOGLOBIN,URINE NEGATIVE (NEGATIVE); COLOR,URINE YELLOW (YELLOW); GLUCOSE, URINE NEGATIVE (NEGATIVE); KETONES,URINE NEGATIVE (NEGATIVE); LEUKOCYTE ESTERASE ,URINE NEGATIVE (NEGATIVE); NITRITES,URINE NEGATIVE (NEGATIVE); PROTEIN,URINE NEGATIVE (NEGATIVE); UROBILINOGEN,URINE NORMAL (NORMAL)
[2019-07-30 00:04] LABS: APPEARANCE,URINE CLEAR (CLEAR)
[2019-07-30] MEDS ORDERED: NS 1/2 + KCL 20 MEQ/L 1,000 ML IV ONE (00:47)
[2019-07-30] MEDS: NS 1/2 + KCL 20 MEQ/L 1,000 ML IV SCH ×2 (01:02→15:00)
[2019-07-30 01:19] VITALS: BMI 31.5
[2019-07-30 06:26] LABS: BASOPHILS % (AUTO) 0.3 % (0.2-1.0); EOSINOPHILS # (AUTO) 0.3 x10^3/uL (0.0-0.2); HEMATOCRIT 25.6 % (42.0-54.0); HEMOGLOBIN 8.7 g/dL (13.5-18.0); LYMPHOCYTES # (AUTO) 1.5 X10^3/uL (1.3-2.9); LYMPHOCYTES % (AUTO) 18.6 % (21.0-51.0); MEAN CORPUSCULAR HEMOGLOBIN 28.8 pg (27.0-34.0); MEAN CORPUSCULAR HGB CONC 33.9 g/dL (33.0-35.0); MEAN CORPUSCULAR VOLUME 85.1 fL (80.0-100.0); MEAN PLATELET VOLUME 9.6 fL (7.4-11.0); MONOCYTES # (AUTO) 0.6 x10^3/uL (0.3-0.8); MONOCYTES % (AUTO) 7.7 % (0.0-13.0); NEUTROPHILS # (AUTO) 5.8 x10^3/uL (2.2-4.8); NEUTROPHILS % (AUTO) 70.4 % (42.0-75.0); PLATELET COUNT 90 X10^3/uL (150.0-450.0); RED BLOOD COUNT 3.01 X10^6/uL (4.7-6.0); RED CELL DISTRIBUTION WIDTH 18.4 % (11.6-16.5); WHITE BLOOD COUNT 8.2 X10^3/uL (3.6-10.0)
[2019-07-30 06:39] LABS: ALANINE AMINOTRANSFERASE 26 Units/L (12-78); ALBUMIN 2.8 g/dL (3.4-5.0); ALKALINE PHOSPHATASE 37 Units/L (46-116); ASPARTATE AMINO TRANSFERASE 21 Units/L (15-37); BLOOD UREA NITROGEN 15 mg/dL (7-18); CALCIUM 8.3 mg/dL (8.5-10.1); CARBON DIOXIDE 32.8 mmol/L (21-32); CHLORIDE 105 mmol/L (98-107); COR CA(FOR HYPOALB) 9.3 mg/dL (8.5-10.1); SODIUM 141 mmol/L (136-145); TOTAL PROTEIN 5.6 g/dL (6.4-8.2); eGFR NON BLACK RACES > 60 (>60)
[2019-07-30] MEDS: DUONEB 0.5 MG/3 MG (3 mL) NEB SCH ×4 (09:23→20:10)
[2019-07-30] MEDS: ZYLOPRIM PO SCH (10:35)
[2019-07-30] MEDS: PROTONIX TAB 40 MG PO SCH ×2 (10:36→20:35)
[2019-07-30] MEDS: CARDURA PO SCH (10:36)
[2019-07-30] MEDS: HEMOCYTE-PLUS PO SCH (10:38)
[2019-07-30] MEDS: REQUIP PO SCH ×2 (10:39→20:44)
[2019-07-30] MEDS: LYRICA CAP 75 mg PO SCH ×2 (10:39→20:35)
[2019-07-30] MEDS: LASIX PO SCH (10:39)
[2019-07-30] MEDS: LIPITOR TAB 20 MG PO SCH ×2 (10:42→20:34)
[2019-07-30] MEDS: WELLBUTRIN IR (PLAIN) PO SCH (10:42)
--- NOTE | 2019-07-30 10:48 | DR.H&P ---
H&P History & Physical for Day of: H&P Date: 07/30/19 Chief Complaint Chief Complaint: confusion, weakness Allergies Allergies Allergy/AdvReac Type Severity Reaction Status Date / Time codeine Allergy Verified 07/18/19 17:25 iodine Allergy Verified 07/18/19 17:25 History of Present Illness History of Present Illness: Mr. Arambula is a 84y/o with multiple comorbidities was discharged from the hospital yesterday after a prolonged hospitalization for AMS and GI bleed. He was brought back hours after he got home due to having hallucinations and being confused. Patient is alert and oriented this AM, states that he was not ready to go home yesterday and continues to feel weak. He denies SOB, chest pain. He does have home oxygen and uses it at night. D-dimer was noted to be elevated on admission but due to patient's allergy to contrast, CT- PE could not be done. He was started on lovenox due to concern for PE. Patient has had multiple VQ scans in the past due to similar d-dimer elevation. He also reports hx of PE and being on Eliquis. Patient was not noted to be on Eliquis during the last few hsopitalizations due to GI bleed. Patient recent admission was also for GI bleed, FOBT positive requiring EGD and colonoscopy. EGD showed Distal esophageal stricture with esophageal spasms, antral gastritis, previously seen ulcer has healed. Colonoscopy showed sigmoid diverticulosis and internal hemorrhoids. ED work-up: CT head: no acute process CXR (-) Labs: elevated D-dimer. Started on FD lovenox. Plan: less likely PE as patient does not have any symptoms, with a hx of GI bleed with recent episode, will stop FD lovenox. Resume home medications. Monitor H/H Past Medical History Past Medical History: Anxiety, Arthritis, COPD, Coronary Artery Disease, Diabetes, GERD, Gout, Hypertension and PUD Past Surgical History Surgical History: Tonsillectomy Family History Family Medical History: Diabetes Mellitus and Cancer Social History Does patient currently use any type of tobacco product: No Have you used tobacco products in the last 12 months: No Type of Tobacco Use: None Does any household member use tobacco: No Alcohol Use: None Medications Home Medications: codeine Allergy (Verified 07/18/19 17:25) iodine Allergy (Verified 07/18/19 17:25) Labs Result Diagrams: 07/30/19 04:26 07/30/19 04:26 Labs: Laboratory WBC 8.2 X10^3/uL (3.6-10.0) 07/30/19 04:26 RBC 3.01 X10^6/uL (4.7-6.0) L 07/30/19 04:26 Hgb 8.7 g/dL (13.5-18.0) L 07/30/19 04:26 Hct 25.6 % (42.0-54.0) L 07/30/19 04:26 MCV 85.1 fL (80.0-100.0) 07/30/19 04:26 MCH 28.8 pg (27.0-34.0) 07/30/19 04:26 MCHC 33.9 g/dL (33.0-35.0) 07/30/19 04:26 RDW 18.4 % (11.6-16.5) H 07/30/19 04:26 Plt Count 90 X10^3/uL (150.0-450.0) L 07/30/19 04:26 MPV 9.6 fL (7.4-11.0) 07/30/19 04:26 Neut % (Auto) 70.4 % (42.0-75.0) 07/30/19 04:26 Lymph % (Auto) 18.6 % (21.0-51.0) L 07/30/19 04:26 [place] % (Auto) 7.7 % (0.0-13.0) 07/30/19 04:26 Eos % (Auto) 3.0 % (0.9-2.9) H 07/30/19 04:26 Baso % (Auto) 0.3 % (0.2-1.0) 07/30/19 04:26 Neut # (Auto) 5.8 x10^3/uL (2.2-4.8) H 07/30/19 04:26 Lymph # (Auto) 1.5 X10^3/uL (1.3-2.9) 07/30/19 04:26 [place] # (Auto) 0.6 x10^3/uL (0.3-0.8) 07/30/19 04:26 Eos # (Auto) 0.3 x10^3/uL (0.0-0.2) H 07/30/19 04:26 Baso # (Auto) 0.0 X10^3/uL (0.0-0.1) 07/30/19 04:26 Absolute Nucleated RBC 0.0 /100WBC 07/30/19 04:26 PT 13.7 SECONDS (11.8-14.3) 07/29/19 22:05 INR Target Range - 07/29/19 22:05 INR 1.09 (0.8-1.3) 07/29/19 22:05 APTT 30.0 SECONDS (22.9-36.5) 07/29/19 22:05 PTT Comment - 07/29/19 22:05 D-Dimer 1180 ng/mL (0-400) H* 07/29/19 22:05 Sodium 141 mmol/L (136-145) 07/30/19 04:26 Corrected Sodium TNP 07/30/19 04:26 Potassium 4.0 mmol/L (3.5-5.1) 07/30/19 04:26 Chloride 105 mmol/L (98-107) 07/30/19 04:26 Carbon Dioxide 32.8 mmol/L (21-32) H 07/30/19 04:26 BUN 15 mg/dL (7-18) 07/30/19 04:26 Creatinine 1.20 mg/dL (0.70-1.30) 07/30/19 04:26 Est GFR (MDRD) Af Amer > 60 (>60) 07/30/19 04:26 Est GFR (MDRD) Non-Af > 60 (>60) 07/30/19 04:26 Glucose 103 mg/dL (65-99) H 07/30/19 04:26 POC Glucose (mg/dL) 107 mg/dL (65-99) H 07/30/19 05:35 Calcium 8.3 mg/dL (8.5-10.1) L 07/30/19 04:26 Corrected Calcium 9.3 mg/dL (8.5-10.1) 07/30/19 04:26 Magnesium 2.3 mg/dL (1.7-2.9) 07/29/19 22:05 Total Bilirubin 0.50 mg/dL (0.2-1.0) 07/30/19 04:26 AST 21 Units/L (15-37) 07/30/19 04:26 ALT 26 Units/L (12-78) 07/30/19 04:26 Alkaline Phosphatase 37 Units/L (46-116) L 07/30/19 04:26 Creatine Kinase 118 Units/L (39-308) 07/29/19 22:05 CK-MB (CK-2) 2.5 ng/mL (0-4.0) 07/29/19 22:05 CK/CKMB % Calc 2.1 % (<4) 07/29/19 22:05 Troponin I < 0.02 ng/mL (0-1.5) 07/29/19 22:05 Total Protein 5.6 g/dL (6.4-8.2) L 07/30/19 04:26 Albumin 2.8 g/dL (3.4-5.0) L 07/30/19 04:26 Globulin 2.8 g/dL (2.5-4.5) 07/30/19 04:26 Albumin/Globulin Ratio 1.0 Ratio (1.1-2.1) L 07/30/19 04:26 Specimen Type Clean catch urine 07/29/19 23:54 Urine Color Yellow (YELLOW) 07/29/19 23:54 Urine Appearance Clear (CLEAR) 07/29/19 23:54 Urine pH 7.0 (5.0 - 8.0) 07/29/19 23:54 Ur Specific [place] 1.010 (1.000-1.030) 07/29/19 23:54 Urine Protein Negative (NEGATIVE) 07/29/19 23:54 Urine Glucose (UA) Negative (NEGATIVE) 07/29/19 23:54 Urine Ketones Negative (NEGATIVE) 07/29/19 23:54 Urine Occult Blood Negative (NEGATIVE) 07/29/19 23:54 Urine Nitrite Negative (NEGATIVE) 07/29/19 23:54 Urine Bilirubin Negative (NEGATIVE) 07/29/19 23:54 Urine Urobilinogen Normal (NORMAL) 07/29/19 23:54 Ur Leukocyte Esterase Negative (NEGATIVE) 07/29/19 23:54 Urine Opiates Screen Positive (NEG=<300) 07/29/19 23:54 Urine Methadone Screen Negative (NEG=<300) 07/29/19 23:54 Ur Barbiturates Screen Negative (NEG=<200) 07/29/19 23:54 Ur Phencyclidine Scrn Negative (NEG=<25) 07/29/19 23:54 Ur Amphetamines Screen Negative (NEG=<1000) 07/29/19 23:54 U Benzodiazepines Scrn Negative (NEG=<200) 07/29/19 23:54 Urine Cocaine Screen Negative (NEG=<300) 07/29/19 23:54 U Marijuana (THC) Screen Negative (NEG=<50) 07/29/19 23:54 Review of Systems Constitutional: Weakness Eyes: No Symptoms Reported ENT: No Symptoms Reported Respiratory: Shortness of Breath Cardiovascular: No Symptoms Reported Gastrointestinal: No Symptoms Reported Genitourinary: No Symptoms Reported Musculoskeletal: No Symptoms Reported Skin: No Symptoms Reported Physical Exam Vital Signs: Temperature 98.0 F Pulse Rate [Right Brachial] 74 Pulse Rate 71 Respiratory Rate 19 Blood Pressure [Left Arm] 114/52 Blood Pressure [Right Arm] 128/78 Blood Pressure 155/67 O2 Sat by Pulse Oximetry 95 Oriented: Normal Eyes: Normal Respiratory: Diminished Throughout Cardiovascular: Normal Auscultation: Bowel Sounds: Normal Palpation: Normal Tenderness: Normal Skin: Normal Musculoskeletal: Normal Psychiatric: Normal Mood Description: Calm Affect: Normal Speech Pattern: Clear and Appropriate Assessment/Plan (1) Altered mental status: Qualifiers: Altered mental status type: disorientation Qualified Code(s): R41.0 - Disorientation, unspecified Status: Acute (2) Diabetes: Qualifiers: Diabetes mellitus complication status: without complication Diabetes mellitus snf insulin use: unspecified snf insulin use status Diabetes mellitus type: type 2 Qualified Code(s): E11.9 - Type 2 diabetes mellitus without complications Status: Acute (3) COPD (chronic obstructive pulmonary disease): Qualifiers: COPD type: COPD with acute exacerbation Qualified Code(s): J44.1 - Chronic obstructive pulmonary disease with (acute) exacerbation Status: Acute (4) CHF (congestive heart failure): Qualifiers: Heart failure chronicity: unspecified Heart failure type: unspecified Qualified Code(s): I50.9 - Heart failure, unspecified Status: Acute (5) GI bleed: Qualifiers: GI bleed type/associated pathology: gastritis Gastritis type: chronic gastritis Qualified Code(s): K29.51 - Unspecified chronic gastritis with bleeding Status: Acute Review H&P Reviewed: Yes Patient was examined?: Yes
[2019-07-30] MEDS ORDERED: M.S. CONTIN 30 MG EXTENDED RELEASE PO PRN (12:27)
[2019-07-30] MEDS ORDERED: LOVENOX INJ 80 MG SYR SC SCH ×2 (21:00)
[2019-07-31] MEDS: NS 1/2 + KCL 20 MEQ/L 1,000 ML IV SCH (01:21)
[2019-07-31] MEDS: NORCO 10/325 TAB PO PRN ×2 (04:37→22:57)
[2019-07-31 06:12] LABS: BASOPHILS % (AUTO) 0.5 % (0.2-1.0); EOSINOPHILS # (AUTO) 0.2 x10^3/uL (0.0-0.2); EOSINOPHILS % (AUTO) 3.6 % (0.9-2.9); HEMATOCRIT 29.5 % (42.0-54.0); HEMOGLOBIN 9.7 g/dL (13.5-18.0); LYMPHOCYTES # (AUTO) 1.3 X10^3/uL (1.3-2.9); LYMPHOCYTES % (AUTO) 24.1 % (21.0-51.0); MEAN CORPUSCULAR HEMOGLOBIN 27.5 pg (27.0-34.0); MEAN CORPUSCULAR HGB CONC 32.9 g/dL (33.0-35.0); MEAN CORPUSCULAR VOLUME 83.7 fL (80.0-100.0); MEAN PLATELET VOLUME 8.9 fL (7.4-11.0); MONOCYTES # (AUTO) 0.5 x10^3/uL (0.3-0.8); MONOCYTES % (AUTO) 9.1 % (0.0-13.0); NEUTROPHILS # (AUTO) 3.4 x10^3/uL (2.2-4.8); NEUTROPHILS % (AUTO) 62.7 % (42.0-75.0); PLATELET COUNT 105 X10^3/uL (150.0-450.0); RED BLOOD COUNT 3.53 X10^6/uL (4.7-6.0); RED CELL DISTRIBUTION WIDTH 18.2 % (11.6-16.5); WHITE BLOOD COUNT 5.4 X10^3/uL (3.6-10.0)
[2019-07-31 06:18] LABS: ALANINE AMINOTRANSFERASE 16 Units/L (12-78); ALBUMIN 2.4 g/dL (3.4-5.0); ALKALINE PHOSPHATASE 33 Units/L (46-116); ASPARTATE AMINO TRANSFERASE 16 Units/L (15-37); BLOOD UREA NITROGEN 24 mg/dL (7-18); CHLORIDE 101 mmol/L (98-107); COR CA(FOR HYPOALB) 10.3 mg/dL (8.5-10.1); COR NA(FOR HYPERGLY) 139 mmol/L (136-145); CREATININE 1.03 mg/dL (0.70-1.30); SODIUM 138 mmol/L (136-145); TOTAL PROTEIN 5.8 g/dL (6.4-8.2); eGFR NON BLACK RACES > 60 (>60)
[2019-07-31] MEDS: LYRICA CAP 75 mg PO SCH ×2 (09:03→21:05)
[2019-07-31] MEDS: CARDURA PO SCH (09:03)
[2019-07-31] MEDS: HEMOCYTE-PLUS PO SCH (09:03)
[2019-07-31] MEDS: LASIX PO SCH (09:05)
[2019-07-31] MEDS: PROTONIX TAB 40 MG PO SCH ×2 (09:05→21:05)
[2019-07-31] MEDS: ZYLOPRIM PO SCH (09:05)
[2019-07-31] MEDS: REQUIP PO SCH ×2 (09:06→21:05)
[2019-07-31] MEDS: WELLBUTRIN IR (PLAIN) PO SCH (09:20)
[2019-07-31] MEDS: DUONEB 0.5 MG/3 MG (3 mL) NEB SCH ×4 (09:37→21:20)
[2019-07-31] MEDS ORDERED: ROBITUSSIN DM ONE (10:05)
[2019-07-31] MEDS: ROBITUSSIN DM PO PRN (10:06)
[2019-07-31] MEDS ORDERED: SOLU-Medrol 40 MG VIAL IVP ONE (11:32)
--- NOTE | 2019-07-31 11:37 | PCM.PROG ---
Progress Note Progress Note for Day of Date of Exam: 07/31/19 Subjective Subjective: Patient seen at bedside, no acute events overnight. Patient is admitted for altered mental status and elevated d-dimer. He reports coughing a lot this morning, mostly dry. Denies any bleeding. Hgb stable. Patient is currently alert and oriented, answering questions appropriately. D-dimer was elevated and patient was started on FD lovenox in the ED but then stopped due to hx of recent GI bleed. Due to patient's iodine allergy, CT PE could not be obtained. VQ scan ordered for tomorrow. Will get a CXR now, one dose of solumedrol, continue duonebs and pulmicort. Past Medical Family Social History Past Med/Fam/Surg Hx: No changes since H&P Allergies: Allergies codeine Allergy (Verified 07/18/19 17:25) iodine Allergy (Verified 07/18/19 17:25) Review of Systems ROS: No change since H&P Vital Signs and I&O's Vital Signs: Temperature 99.0 F Pulse Rate [Right Brachial] 74 Pulse Rate 74 Respiratory Rate 16 Blood Pressure [Left Arm] 114/52 Blood Pressure [Right Arm] 128/78 Blood Pressure 148/70 O2 Sat by Pulse Oximetry 95 Intake and Output: Intake & Output 07/28/19 07/29/19 07/30/19 08/01/19 23:59 23:59 23:59 00:59 Intake Total 3713 / 3713 890 / 890 Output Total 3250 / 3250 Balance 463 / 463 890 / 890 Physical Exam Oriented: Normal Eyes: Normal Respiratory: Wheezes and Rhonchi Cardiovascular: Normal Auscultation: Bowel Sounds: Normal Tenderness: Normal Skin: Normal Musculoskeletal: Normal Psychiatric: Normal Mood Description: Calm Affect: Normal Speech Pattern: Clear and Appropriate Laboratory and Diagnostics Result Diagrams: 07/31/19 04:51 07/31/19 04:51 Labs: Laboratory WBC 5.4 X10^3/uL (3.6-10.0) 07/31/19 04:51 RBC 3.53 X10^6/uL (4.7-6.0) L 07/31/19 04:51 Hgb 9.7 g/dL (13.5-18.0) L 07/31/19 04:51 Hct 29.5 % (42.0-54.0) L 07/31/19 04:51 MCV 83.7 fL (80.0-100.0) 07/31/19 04:51 MCH 27.5 pg (27.0-34.0) 07/31/19 04:51 MCHC 32.9 g/dL (33.0-35.0) L 07/31/19 04:51 RDW 18.2 % (11.6-16.5) H 07/31/19 04:51 Plt Count 105 X10^3/uL (150.0-450.0) L 07/31/19 04:51 MPV 8.9 fL (7.4-11.0) 07/31/19 04:51 Neut % (Auto) 62.7 % (42.0-75.0) 07/31/19 04:51 Lymph % (Auto) 24.1 % (21.0-51.0) 07/31/19 04:51 [place] % (Auto) 9.1 % (0.0-13.0) 07/31/19 04:51 Eos % (Auto) 3.6 % (0.9-2.9) H 07/31/19 04:51 Baso % (Auto) 0.5 % (0.2-1.0) 07/31/19 04:51 Neut # (Auto) 3.4 x10^3/uL (2.2-4.8) 07/31/19 04:51 Lymph # (Auto) 1.3 X10^3/uL (1.3-2.9) 07/31/19 04:51 [place] # (Auto) 0.5 x10^3/uL (0.3-0.8) 07/31/19 04:51 Eos # (Auto) 0.2 x10^3/uL (0.0-0.2) 07/31/19 04:51 Baso # (Auto) 0.0 X10^3/uL (0.0-0.1) 07/31/19 04:51 Absolute Nucleated RBC 0.0 /100WBC 07/31/19 04:51 PT 13.7 SECONDS (11.8-14.3) 07/29/19 22:05 INR Target Range - 07/29/19 22:05 INR 1.09 (0.8-1.3) 07/29/19 22:05 APTT 30.0 SECONDS (22.9-36.5) 07/29/19 22:05 PTT Comment - 07/29/19 22:05 D-Dimer 1180 ng/mL (0-400) H* 07/29/19 22:05 Sodium 138 mmol/L (136-145) 07/31/19 04:51 Corrected Sodium 139 mmol/L (136-145) 07/31/19 04:51 Potassium 4.1 mmol/L (3.5-5.1) 07/31/19 04:51 Chloride 101 mmol/L (98-107) 07/31/19 04:51 Carbon Dioxide 34.0 mmol/L (21-32) H 07/31/19 04:51 BUN 24 mg/dL (7-18) H 07/31/19 04:51 Creatinine 1.03 mg/dL (0.70-1.30) 07/31/19 04:51 Est GFR (MDRD) Af Amer > 60 (>60) 07/31/19 04:51 Est GFR (MDRD) Non-Af > 60 (>60) 07/31/19 04:51 Glucose 160 mg/dL (65-99) H 07/31/19 04:51 POC Glucose (mg/dL) 104 mg/dL (65-99) H 07/31/19 11:11 Calcium 9.0 mg/dL (8.5-10.1) 07/31/19 04:51 Corrected Calcium 10.3 mg/dL (8.5-10.1) H 07/31/19 04:51 Magnesium 2.3 mg/dL (1.7-2.9) 07/29/19 22:05 Total Bilirubin 0.10 mg/dL (0.2-1.0) L 07/31/19 04:51 AST 16 Units/L (15-37) 07/31/19 04:51 ALT 16 Units/L (12-78) 07/31/19 04:51 Alkaline Phosphatase 33 Units/L (46-116) L 07/31/19 04:51 Creatine Kinase 118 Units/L (39-308) 07/29/19 22:05 CK-MB (CK-2) 2.5 ng/mL (0-4.0) 07/29/19 22:05 CK/CKMB % Calc 2.1 % (<4) 07/29/19 22:05 Troponin I < 0.02 ng/mL (0-1.5) 07/29/19 22:05 Total Protein 5.8 g/dL (6.4-8.2) L 07/31/19 04:51 Albumin 2.4 g/dL (3.4-5.0) L 07/31/19 04:51 Globulin 3.4 g/dL (2.5-4.5) 07/31/19 04:51 Albumin/Globulin Ratio 0.7 Ratio (1.1-2.1) L 07/31/19 04:51 Specimen Type Clean catch urine 07/29/19 23:54 Urine Color Yellow (YELLOW) 07/29/19 23:54 Urine Appearance Clear (CLEAR) 07/29/19 23:54 Urine pH 7.0 (5.0 - 8.0) 07/29/19 23:54 Ur Specific [place] 1.010 (1.000-1.030) 07/29/19 23:54 Urine Protein Negative (NEGATIVE) 07/29/19 23:54 Urine Glucose (UA) Negative (NEGATIVE) 07/29/19 23:54 Urine Ketones Negative (NEGATIVE) 07/29/19 23:54 Urine Occult Blood Negative (NEGATIVE) 07/29/19 23:54 Urine Nitrite Negative (NEGATIVE) 07/29/19 23:54 Urine Bilirubin Negative (NEGATIVE) 07/29/19 23:54 Urine Urobilinogen Normal (NORMAL) 07/29/19 23:54 Ur Leukocyte Esterase Negative (NEGATIVE) 07/29/19 23:54 Urine Opiates Screen Positive (NEG=<300) 07/29/19 23:54 Urine Methadone Screen Negative (NEG=<300) 07/29/19 23:54 Ur Barbiturates Screen Negative (NEG=<200) 07/29/19 23:54 Ur Phencyclidine Scrn Negative (NEG=<25) 07/29/19 23:54 Ur Amphetamines Screen Negative (NEG=<1000) 07/29/19 23:54 U Benzodiazepines Scrn Negative (NEG=<200) 07/29/19 23:54 Urine Cocaine Screen Negative (NEG=<300) 07/29/19 23:54 U Marijuana (THC) Screen Negative (NEG=<50) 07/29/19 23:54 Plan (1) Altered mental status: Status: Acute Qualifiers: Altered mental status type: disorientation Qualified Code(s): R41.0 - Disorientation, unspecified Plan: Resolved (2) Diabetes: Status: Acute Qualifiers: Diabetes mellitus complication status: without complication 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 insulin use status Diabetes mellitus type: type 2 Qualified Code(s): E11.9 - Type 2 diabetes mellitus without complications (3) COPD (chronic obstructive pulmonary disease): Status: Acute Qualifiers: COPD type: COPD with acute exacerbation Qualified Code(s): J44.1 - Chronic obstructive pulmonary disease with (acute) exacerbation (4) CHF (congestive heart failure): Status: Acute Qualifiers: Heart failure chronicity: unspecified Heart failure type: unspecified Qualified Code(s): I50.9 - Heart failure, unspecified (5) GI bleed: Status: Acute Qualifiers: GI bleed type/associated pathology: gastritis Gastritis type: chronic gastritis Qualified Code(s): K29.51 - Unspecified chronic gastritis with bleeding Plan: Hgb stable, no active bleeding. Recent EGD/Colonoscopy
[2019-07-31] MEDS ORDERED: SOLU-Medrol 40 MG VIAL ONE (12:02)
[2019-07-31] MEDS: PULMICORT NEB TX 0.5 MG NEB SCH ×2 (12:22→21:20)
--- NOTE | 2019-07-31 13:40 | RAD ---
HISTORYSOBSTUDYPortable AP [id number] borderline cardiomegaly with both intact pacemaker and di scontinuous pacemaker wiring. There is mild stable chronic scarring at the left costophrenic angle. N o acute consolidation, edema identified.IMPRESSIONNo change; no acute findings.Electronically signed by: CLAIRE LR (Jul 31, 2019 13:39:09)
[2019-07-31] MEDS: HumuLIN R SC PRN ×2 (16:22→21:28)
[2019-07-31] MEDS: LIPITOR TAB 20 MG PO SCH (21:03)
[2019-08-01] MEDS: NORCO 10/325 TAB PO PRN ×2 (05:01→20:53)
[2019-08-01 05:45] LABS: BLOOD UREA NITROGEN 12 mg/dL (7-18); CALCIUM 9.1 mg/dL (8.5-10.1); CARBON DIOXIDE 31.5 mmol/L (21-32); CHLORIDE 101 mmol/L (98-107); COR NA(FOR HYPERGLY) 140 mmol/L (136-145); SODIUM 140 mmol/L (136-145); eGFR NON BLACK RACES > 60 (>60)
[2019-08-01 05:50] LABS: BASOPHILS % (AUTO) 0.2 % (0.2-1.0); EOSINOPHILS % (AUTO) 0.1 % (0.9-2.9); HEMATOCRIT 34.7 % (42.0-54.0); HEMOGLOBIN 11.5 g/dL (13.5-18.0); LYMPHOCYTES # (AUTO) 0.9 X10^3/uL (1.3-2.9); LYMPHOCYTES % (AUTO) 10.1 % (21.0-51.0); MEAN CORPUSCULAR HEMOGLOBIN 27.6 pg (27.0-34.0); MEAN CORPUSCULAR HGB CONC 33.1 g/dL (33.0-35.0); MEAN CORPUSCULAR VOLUME 83.3 fL (80.0-100.0); MEAN PLATELET VOLUME 8.9 fL (7.4-11.0); MONOCYTES # (AUTO) 0.6 x10^3/uL (0.3-0.8); MONOCYTES % (AUTO) 6.7 % (0.0-13.0); NEUTROPHILS # (AUTO) 7.5 x10^3/uL (2.2-4.8); NEUTROPHILS % (AUTO) 82.9 % (42.0-75.0); PLATELET COUNT 126 X10^3/uL (150.0-450.0); RED BLOOD COUNT 4.16 X10^6/uL (4.7-6.0); RED CELL DISTRIBUTION WIDTH 17.8 % (11.6-16.5)
[2019-08-01 08:20] LABS: ABG BASE EXCESS 2.4 mmol/L (-2.0-2.0); ABG HCO3 27.2 mmol/L (22-26)
[2019-08-01] MEDS: REQUIP PO SCH ×2 (08:35→20:53)
[2019-08-01] MEDS: HEMOCYTE-PLUS PO SCH (08:35)
[2019-08-01] MEDS: CARDURA PO SCH (08:36)
[2019-08-01] MEDS: PROTONIX TAB 40 MG PO SCH ×2 (08:36→20:53)
[2019-08-01] MEDS: LYRICA CAP 75 mg PO SCH ×2 (08:36→20:52)
[2019-08-01] MEDS: ZYLOPRIM PO SCH (08:36)
[2019-08-01] MEDS: WELLBUTRIN IR (PLAIN) PO SCH (08:36)
[2019-08-01] MEDS: LASIX PO SCH (08:36)
[2019-08-01] MEDS: PULMICORT NEB TX 0.5 MG NEB SCH ×3 (09:59→21:40)
[2019-08-01] MEDS: DUONEB 0.5 MG/3 MG (3 mL) NEB SCH ×5 (09:59→21:40)
[2019-08-01] MEDS: LIPITOR TAB 20 MG PO SCH (20:52)
[2019-08-02 05:45] LABS: BASOPHILS % (AUTO) 0.5 % (0.2-1.0); EOSINOPHILS # (AUTO) 0.2 x10^3/uL (0.0-0.2); EOSINOPHILS % (AUTO) 2.1 % (0.9-2.9); HEMATOCRIT 34.4 % (42.0-54.0); HEMOGLOBIN 11.4 g/dL (13.5-18.0); LYMPHOCYTES # (AUTO) 2.5 X10^3/uL (1.3-2.9); LYMPHOCYTES % (AUTO) 28.2 % (21.0-51.0); MEAN CORPUSCULAR HEMOGLOBIN 27.9 pg (27.0-34.0); MEAN CORPUSCULAR HGB CONC 33.2 g/dL (33.0-35.0); MEAN CORPUSCULAR VOLUME 84.2 fL (80.0-100.0); MEAN PLATELET VOLUME 8.9 fL (7.4-11.0); MONOCYTES # (AUTO) 0.6 x10^3/uL (0.3-0.8); MONOCYTES % (AUTO) 6.9 % (0.0-13.0); NEUTROPHILS # (AUTO) 5.4 x10^3/uL (2.2-4.8); NEUTROPHILS % (AUTO) 62.3 % (42.0-75.0); PLATELET COUNT 120 X10^3/uL (150.0-450.0); RED BLOOD COUNT 4.08 X10^6/uL (4.7-6.0); RED CELL DISTRIBUTION WIDTH 17.6 % (11.6-16.5); WHITE BLOOD COUNT 8.7 X10^3/uL (3.6-10.0)
[2019-08-02 06:02] LABS: ALANINE AMINOTRANSFERASE 31 Units/L (12-78); ALBUMIN 3.2 g/dL (3.4-5.0); ALKALINE PHOSPHATASE 44 Units/L (46-116); ASPARTATE AMINO TRANSFERASE 26 Units/L (15-37); BLOOD UREA NITROGEN 17 mg/dL (7-18); CALCIUM 8.8 mg/dL (8.5-10.1); CARBON DIOXIDE 31.7 mmol/L (21-32); CHLORIDE 104 mmol/L (98-107); COR CA(FOR HYPOALB) 9.4 mg/dL (8.5-10.1); SODIUM 143 mmol/L (136-145); TOTAL PROTEIN 6.4 g/dL (6.4-8.2); eGFR NON BLACK RACES 56 (>60)
[2019-08-02] MEDS: DUONEB 0.5 MG/3 MG (3 mL) NEB SCH ×4 (08:29→20:00)
[2019-08-02] MEDS: PULMICORT NEB TX 0.5 MG NEB SCH ×2 (08:29→20:00)
[2019-08-02] MEDS: HEMOCYTE-PLUS PO SCH (08:48)
[2019-08-02] MEDS: CARDURA PO SCH (08:48)
[2019-08-02] MEDS: PROTONIX TAB 40 MG PO SCH (08:48)
[2019-08-02] MEDS: WELLBUTRIN IR (PLAIN) PO SCH (08:49)
[2019-08-02] MEDS: LYRICA CAP 75 mg PO SCH (08:49)
[2019-08-02] MEDS: ZYLOPRIM PO SCH (08:49)
[2019-08-02] MEDS: LASIX PO SCH (08:49)
[2019-08-02] MEDS: REQUIP PO SCH ×2 (08:50→20:18)
[2019-08-02] MEDS ORDERED: M.S. CONTIN 15 MG (EXTENDED RELEASE) PO PRN (12:07)
[2019-08-02] MEDS ORDERED: SOLU-Medrol 40 MG VIAL IVP SCH (13:00)
--- NOTE | 2019-08-02 17:42 | PCM.PROG ---
Progress Note - Progress Note for Day of Date of Exam: 08/01/19 - Subjective Subjective: Patient seen at bedside, no acute events overnight. Patient is admitted for altered mental status and elevated d-dimer. He reports coughing a lot this morning, mostly dry. Denies any bleeding. Hgb stable. Patient is currently alert and oriented, answering questions appropriately. D-dimer was elevated and patient was started on FD lovenox in the ED but then stopped due to hx of recent GI bleed. Due to patient's iodine allergy, CT PE could not be obtained. VQ scan ordered for this am. Pt denies any chest pain, alert, awake and oriented. Pt is agreeing to Rehab therapy following r/o PE. Plan to continue duonebs and pulmicort. - Past Medical Family Social History Past Med/Fam/Surg Hx: No changes since H&P Allergies: Allergies codeine Allergy (Verified 07/18/19 17:25) iodine Allergy (Verified 07/18/19 17:25) - Review of Systems ROS: No change since H&P - Vital Signs and I&O's Vital Signs: Temperature 97.9 F Pulse Rate [Right Brachial] 74 Pulse Rate 103 Respiratory Rate 17 Blood Pressure [Left Arm] 114/52 Blood Pressure [Right Arm] 128/78 Blood Pressure 120/67 O2 Sat by Pulse Oximetry 97 Intake and Output: Intake & Output 07/31/19 08/01/19 08/02/19 08/03/19 11:59 11:59 11:59 11:59 Intake Total 2044 / 2044 1270 / 1270 570 / 570 Output Total 1375 / 1375 Balance 669 / 669 1270 / 1270 570 / 570 - Physical Exam Oriented: Normal Eyes: Normal Respiratory: Wheezes, Rhonchi Cardiovascular: Normal Auscultation: Bowel Sounds: Normal Tenderness: Normal Skin: Normal Musculoskeletal: Normal Psychiatric: Normal Mood Description: Calm Affect: Normal Speech Pattern: Clear, Appropriate - Laboratory and Diagnostics Result Diagrams: 08/02/19 05:25 08/02/19 05:25 Labs: Laboratory WBC 8.7 X10^3/uL (3.6-10.0) 08/02/19 05:25 RBC 4.08 X10^6/uL (4.7-6.0) L 08/02/19 05:25 Hgb 11.4 g/dL (13.5-18.0) L 08/02/19 05:25 Hct 34.4 % (42.0-54.0) L 08/02/19 05:25 MCV 84.2 fL (80.0-100.0) 08/02/19 05:25 MCH 27.9 pg (27.0-34.0) 08/02/19 05:25 MCHC 33.2 g/dL (33.0-35.0) 08/02/19 05:25 RDW 17.6 % (11.6-16.5) H 08/02/19 05:25 Plt Count 120 X10^3/uL (150.0-450.0) L 08/02/19 05:25 MPV 8.9 fL (7.4-11.0) 08/02/19 05:25 Neut % (Auto) 62.3 % (42.0-75.0) 08/02/19 05:25 Lymph % (Auto) 28.2 % (21.0-51.0) 08/02/19 05:25 [place] % (Auto) 6.9 % (0.0-13.0) 08/02/19 05:25 Eos % (Auto) 2.1 % (0.9-2.9) 08/02/19 05:25 Baso % (Auto) 0.5 % (0.2-1.0) 08/02/19 05:25 Neut # (Auto) 5.4 x10^3/uL (2.2-4.8) H 08/02/19 05:25 Lymph # (Auto) 2.5 X10^3/uL (1.3-2.9) 08/02/19 05:25 [place] # (Auto) 0.6 x10^3/uL (0.3-0.8) 08/02/19 05:25 Eos # (Auto) 0.2 x10^3/uL (0.0-0.2) 08/02/19 05:25 Baso # (Auto) 0.0 X10^3/uL (0.0-0.1) 08/02/19 05:25 Absolute Nucleated RBC 0.0 /100WBC 08/02/19 05:25 PT 13.7 SECONDS (11.8-14.3) 07/29/19 22:05 INR Target Range - 07/29/19 22:05 INR 1.09 (0.8-1.3) 07/29/19 22:05 APTT 30.0 SECONDS (22.9-36.5) 07/29/19 22:05 PTT Comment - 07/29/19 22:05 D-Dimer 1180 ng/mL (0-400) H* 07/29/19 22:05 Sample Site Right brachial 08/01/19 08:12 ABG pH 7.420 (7.35-7.45) 08/01/19 08:12 ABG pCO2 42.0 mmHg (35.0-45.0) 08/01/19 08:12 ABG pO2 93.0 mmHg (80.0-100.0) 08/01/19 08:12 ABG HCO3 27.2 mmol/L (22-26) H 08/01/19 08:12 ABG O2 Saturation 97.0 % (90-100) 08/01/19 08:12 ABG Base Excess 2.4 mmol/L (-2.0-2.0) H 08/01/19 08:12 [place] Test Na 08/01/19 08:12 A-a Gradient 54.0 mmHg 08/01/19 08:12 FiO2 28.0 08/01/19 08:12 Blood Gas Comments Marianne well aw 08/01/19 08:12 Sodium 143 mmol/L (136-145) 08/02/19 05:25 Corrected Sodium TNP 08/02/19 05:25 Potassium 4.0 mmol/L (3.5-5.1) 08/02/19 05:25 Chloride 104 mmol/L (98-107) 08/02/19 05:25 Carbon Dioxide 31.7 mmol/L (21-32) 08/02/19 05:25 BUN 17 mg/dL (7-18) 08/02/19 05:25 Creatinine 1.30 mg/dL (0.70-1.30) 08/02/19 05:25 Est GFR (MDRD) Af Amer > 60 (>60) 08/02/19 05:25 Est GFR (MDRD) Non-Af 56 (>60) L 08/02/19 05:25 Glucose 109 mg/dL (65-99) H 08/02/19 05:25 POC Glucose (mg/dL) 166 mg/dL (65-99) H 08/02/19 16:36 Calcium 8.8 mg/dL (8.5-10.1) 08/02/19 05:25 Corrected Calcium 9.4 mg/dL (8.5-10.1) 08/02/19 05:25 Magnesium 2.3 mg/dL (1.7-2.9) 07/29/19 22:05 Total Bilirubin 0.50 mg/dL (0.2-1.0) 08/02/19 05:25 AST 26 Units/L (15-37) 08/02/19 05:25 ALT 31 Units/L (12-78) 08/02/19 05:25 Alkaline Phosphatase 44 Units/L (46-116) L 08/02/19 05:25 Creatine Kinase 118 Units/L (39-308) 07/29/19 22:05 CK-MB (CK-2) 2.5 ng/mL (0-4.0) 07/29/19 22:05 CK/CKMB % Calc 2.1 % (<4) 07/29/19 22:05 Troponin I < 0.02 ng/mL (0-1.5) 07/29/19 22:05 Total Protein 6.4 g/dL (6.4-8.2) 08/02/19 05:25 Albumin 3.2 g/dL (3.4-5.0) L 08/02/19 05:25 Globulin 3.2 g/dL (2.5-4.5) 08/02/19 05:25 Albumin/Globulin Ratio 1.0 Ratio (1.1-2.1) L 08/02/19 05:25 Specimen Type Clean catch urine 07/29/19 23:54 Urine Color Yellow (YELLOW) 07/29/19 23:54 Urine Appearance Clear (CLEAR) 07/29/19 23:54 Urine pH 7.0 (5.0 - 8.0) 07/29/19 23:54 Ur Specific [place] 1.010 (1.000-1.030) 07/29/19 23:54 Urine Protein Negative (NEGATIVE) 07/29/19 23:54 Urine Glucose (UA) Negative (NEGATIVE) 07/29/19 23:54 Urine Ketones Negative (NEGATIVE) 07/29/19 23:54 Urine Occult Blood Negative (NEGATIVE) 07/29/19 23:54 Urine Nitrite Negative (NEGATIVE) 07/29/19 23:54 Urine Bilirubin Negative (NEGATIVE) 07/29/19 23:54 Urine Urobilinogen Normal (NORMAL) 07/29/19 23:54 Ur Leukocyte Esterase Negative (NEGATIVE) 07/29/19 23:54 Urine Opiates Screen Positive (NEG=<300) 07/29/19 23:54 Urine Methadone Screen Negative (NEG=<300) 07/29/19 23:54 Ur Barbiturates Screen Negative (NEG=<200) 07/29/19 23:54 Ur Phencyclidine Scrn Negative (NEG=<25) 07/29/19 23:54 Ur Amphetamines Screen Negative (NEG=<1000) 07/29/19 23:54 U Benzodiazepines Scrn Negative (NEG=<200) 07/29/19 23:54 Urine Cocaine Screen Negative (NEG=<300) 07/29/19 23:54 U Marijuana (THC) Screen Negative (NEG=<50) 07/29/19 23:54
--- NOTE | 2019-08-02 17:45 | PCM.PROG ---
Progress Note - Progress Note for Day of Date of Exam: 08/02/19 - Subjective Subjective: Patient seen at bedside, no acute events overnight. Patient is admitted for altered mental status and elevated d-dimer. He reports coughing a lot this morning, mostly dry. Denies any bleeding. Hgb stable at 11.4 this am. Patient is currently alert and oriented, answering questions appropriately. D- dimer was elevated and patient was started on FD lovenox in the ED but then stopped due to hx of recent GI bleed. Pt was unable to perform VQ scan to R/O PE. Pt states he had iodine allergy prep in the past and tolerated well. Pt's renal function is stable for ct with contrast. We discussed starting Iodine allergy prep today and proceding with CTA lung r/o PE tomorrow. Pt is agreeing to Rehab therapy following r/o PE. Plan to continue duonebs and pulmicort. - Past Medical Family Social History Past Med/Fam/Surg Hx: No changes since H&P Allergies: Allergies codeine Allergy (Verified 07/18/19 17:25) iodine Allergy (Verified 07/18/19 17:25) - Review of Systems ROS: No change since H&P - Vital Signs and I&O's Vital Signs: Temperature 97.9 F Pulse Rate [Right Brachial] 74 Pulse Rate 103 Respiratory Rate 17 Blood Pressure [Left Arm] 114/52 Blood Pressure [Right Arm] 128/78 Blood Pressure 120/67 O2 Sat by Pulse Oximetry 97 Intake and Output: Intake & Output 07/31/19 08/01/19 08/02/19 08/03/19 11:59 11:59 11:59 11:59 Intake Total 2044 / 2044 1270 / 1270 570 / 570 Output Total 1375 / 1375 Balance 669 / 669 1270 / 1270 570 / 570 - Physical Exam Oriented: Normal Eyes: Normal Respiratory: Wheezes Cardiovascular: Normal Auscultation: Bowel Sounds: Normal Tenderness: Normal Skin: Normal Musculoskeletal: Normal Psychiatric: Normal Mood Description: Calm Affect: Normal Speech Pattern: Clear, Appropriate - Laboratory and Diagnostics Result Diagrams: 08/02/19 05:25 08/02/19 05:25 Labs: Laboratory WBC 8.7 X10^3/uL (3.6-10.0) 08/02/19 05:25 RBC 4.08 X10^6/uL (4.7-6.0) L 08/02/19 05:25 Hgb 11.4 g/dL (13.5-18.0) L 08/02/19 05:25 Hct 34.4 % (42.0-54.0) L 08/02/19 05:25 MCV 84.2 fL (80.0-100.0) 08/02/19 05:25 MCH 27.9 pg (27.0-34.0) 08/02/19 05:25 MCHC 33.2 g/dL (33.0-35.0) 08/02/19 05:25 RDW 17.6 % (11.6-16.5) H 08/02/19 05:25 Plt Count 120 X10^3/uL (150.0-450.0) L 08/02/19 05:25 MPV 8.9 fL (7.4-11.0) 08/02/19 05:25 Neut % (Auto) 62.3 % (42.0-75.0) 08/02/19 05:25 Lymph % (Auto) 28.2 % (21.0-51.0) 08/02/19 05:25 [place] % (Auto) 6.9 % (0.0-13.0) 08/02/19 05:25 Eos % (Auto) 2.1 % (0.9-2.9) 08/02/19 05:25 Baso % (Auto) 0.5 % (0.2-1.0) 08/02/19 05:25 Neut # (Auto) 5.4 x10^3/uL (2.2-4.8) H 08/02/19 05:25 Lymph # (Auto) 2.5 X10^3/uL (1.3-2.9) 08/02/19 05:25 [place] # (Auto) 0.6 x10^3/uL (0.3-0.8) 08/02/19 05:25 Eos # (Auto) 0.2 x10^3/uL (0.0-0.2) 08/02/19 05:25 Baso # (Auto) 0.0 X10^3/uL (0.0-0.1) 08/02/19 05:25 Absolute Nucleated RBC 0.0 /100WBC 08/02/19 05:25 PT 13.7 SECONDS (11.8-14.3) 07/29/19 22:05 INR Target Range - 07/29/19 22:05 INR 1.09 (0.8-1.3) 07/29/19 22:05 APTT 30.0 SECONDS (22.9-36.5) 07/29/19 22:05 PTT Comment - 07/29/19 22:05 D-Dimer 1180 ng/mL (0-400) H* 07/29/19 22:05 Sample Site Right brachial 08/01/19 08:12 ABG pH 7.420 (7.35-7.45) 08/01/19 08:12 ABG pCO2 42.0 mmHg (35.0-45.0) 08/01/19 08:12 ABG pO2 93.0 mmHg (80.0-100.0) 08/01/19 08:12 ABG HCO3 27.2 mmol/L (22-26) H 08/01/19 08:12 ABG O2 Saturation 97.0 % (90-100) 08/01/19 08:12 ABG Base Excess 2.4 mmol/L (-2.0-2.0) H 08/01/19 08:12 Romain Test Na 08/01/19 08:12 A-a Gradient 54.0 mmHg 08/01/19 08:12 FiO2 28.0 08/01/19 08:12 Blood Gas Comments Marianne well aw 08/01/19 08:12 Sodium 143 mmol/L (136-145) 08/02/19 05:25 Corrected Sodium TNP 08/02/19 05:25 Potassium 4.0 mmol/L (3.5-5.1) 08/02/19 05:25 Chloride 104 mmol/L (98-107) 08/02/19 05:25 Carbon Dioxide 31.7 mmol/L (21-32) 08/02/19 05:25 BUN 17 mg/dL (7-18) 08/02/19 05:25 Creatinine 1.30 mg/dL (0.70-1.30) 08/02/19 05:25 Est GFR (MDRD) Af Amer > 60 (>60) 08/02/19 05:25 Est GFR (MDRD) Non-Af 56 (>60) L 08/02/19 05:25 Glucose 109 mg/dL (65-99) H 08/02/19 05:25 POC Glucose (mg/dL) 166 mg/dL (65-99) H 08/02/19 16:36 Calcium 8.8 mg/dL (8.5-10.1) 08/02/19 05:25 Corrected Calcium 9.4 mg/dL (8.5-10.1) 08/02/19 05:25 Magnesium 2.3 mg/dL (1.7-2.9) 07/29/19 22:05 Total Bilirubin 0.50 mg/dL (0.2-1.0) 08/02/19 05:25 AST 26 Units/L (15-37) 08/02/19 05:25 ALT 31 Units/L (12-78) 08/02/19 05:25 Alkaline Phosphatase 44 Units/L (46-116) L 08/02/19 05:25 Creatine Kinase 118 Units/L (39-308) 07/29/19 22:05 CK-MB (CK-2) 2.5 ng/mL (0-4.0) 07/29/19 22:05 CK/CKMB % Calc 2.1 % (<4) 07/29/19 22:05 Troponin I < 0.02 ng/mL (0-1.5) 07/29/19 22:05 Total Protein 6.4 g/dL (6.4-8.2) 08/02/19 05:25 Albumin 3.2 g/dL (3.4-5.0) L 08/02/19 05:25 Globulin 3.2 g/dL (2.5-4.5) 08/02/19 05:25 Albumin/Globulin Ratio 1.0 Ratio (1.1-2.1) L 08/02/19 05:25 Specimen Type Clean catch urine 07/29/19 23:54 Urine Color Yellow (YELLOW) 07/29/19 23:54 Urine Appearance Clear (CLEAR) 07/29/19 23:54 Urine pH 7.0 (5.0 - 8.0) 07/29/19 23:54 Ur Specific [place] 1.010 (1.000-1.030) 07/29/19 23:54 Urine Protein Negative (NEGATIVE) 07/29/19 23:54 Urine Glucose (UA) Negative (NEGATIVE) 07/29/19 23:54 Urine Ketones Negative (NEGATIVE) 07/29/19 23:54 Urine Occult Blood Negative (NEGATIVE) 07/29/19 23:54 Urine Nitrite Negative (NEGATIVE) 07/29/19 23:54 Urine Bilirubin Negative (NEGATIVE) 07/29/19 23:54 Urine Urobilinogen Normal (NORMAL) 07/29/19 23:54 Ur Leukocyte Esterase Negative (NEGATIVE) 07/29/19 23:54 Urine Opiates Screen Positive (NEG=<300) 07/29/19 23:54 Urine Methadone Screen Negative (NEG=<300) 07/29/19 23:54 Ur Barbiturates Screen Negative (NEG=<200) 07/29/19 23:54 Ur Phencyclidine Scrn Negative (NEG=<25) 07/29/19 23:54 Ur Amphetamines Screen Negative (NEG=<1000) 07/29/19 23:54 U Benzodiazepines Scrn Negative (NEG=<200) 07/29/19 23:54 Urine Cocaine Screen Negative (NEG=<300) 07/29/19 23:54 U Marijuana (THC) Screen Negative (NEG=<50) 07/29/19 23:54 - Plan (1) D-dimer, elevated Status: Acute Plan: REPEAT ABG PO2 93, CONTINUE SUPPLEMENTAL O2. IODINE ALLERGY PREP PROTOCOL, CTA LUNGS R/O PE IN THE AM. CONTINUE DUO NEBS, CARDIAC MONITORING. BS CONTROL, AM LABS (2) Weakness Status: Acute Plan: CHRONIC PAIN MANAGEMENT REGIMEN ADJUSTED. 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 insulin use: unspecified termite control service representative insulin use status Diabetes mellitus complication status: without complication Qualified Code(s): E11.9 - Type 2 diabetes mellitus without complications (4) Anemia, normocytic normochromic Status: Acute (5) CHF (congestive heart failure) Status: Acute Qualifiers: Heart failure type: unspecified Heart failure chronicity: unspecified Qualified Code(s): I50.9 - Heart failure, unspecified (6) COPD (chronic obstructive pulmonary disease) Status: Acute Qualifiers: COPD type: COPD with acute exacerbation Qualified Code(s): J44.1 - Chronic obstructive pulmonary disease with (acute) exacerbation (7) Rheumatoid arthritis Status: Acute Qualifiers: Rheumatoid arthritis location: knee Rheumatoid factor presence: unspecified presence Laterality: bilateral Qualified Code(s): M06.9 - Rheumatoid arth ritis, unspecified (8) Rheumatoid arthritis Status: Chronic
[2019-08-02] MEDS ORDERED: PREDNISONE TAB 10 MG PO NR (20:00)
[2019-08-02] MEDS: LIPITOR TAB 20 MG PO SCH (20:17)
[2019-08-02] MEDS: PROTONIX INJ 40 MG VIAL IVP SCH (20:18)
[2019-08-02] MEDS: LYRICA CAP 50 mg PO SCH (20:18)
[2019-08-03] MEDS: NORCO 10/325 TAB PO PRN ×2 (00:06→16:17)
[2019-08-03] MEDS ORDERED: PREDNISONE TAB 10 MG PO NR ×2 (02:00→08:00)
[2019-08-03 05:36] LABS: BASOPHILS % (AUTO) 0.1 % (0.2-1.0); EOSINOPHILS % (AUTO) 0.1 % (0.9-2.9); HEMATOCRIT 35.6 % (42.0-54.0); HEMOGLOBIN 11.6 g/dL (13.5-18.0); LYMPHOCYTES # (AUTO) 0.4 X10^3/uL (1.3-2.9); LYMPHOCYTES % (AUTO) 6.1 % (21.0-51.0); MEAN CORPUSCULAR HEMOGLOBIN 27.3 pg (27.0-34.0); MEAN CORPUSCULAR HGB CONC 32.7 g/dL (33.0-35.0); MEAN CORPUSCULAR VOLUME 83.7 fL (80.0-100.0); MEAN PLATELET VOLUME 8.9 fL (7.4-11.0); MONOCYTES # (AUTO) 0.1 x10^3/uL (0.3-0.8); NEUTROPHILS # (AUTO) 5.6 x10^3/uL (2.2-4.8); NEUTROPHILS % (AUTO) 92.7 % (42.0-75.0); PLATELET COUNT 124 X10^3/uL (150.0-450.0); RED BLOOD COUNT 4.25 X10^6/uL (4.7-6.0); RED CELL DISTRIBUTION WIDTH 18.2 % (11.6-16.5); WHITE BLOOD COUNT 6.1 X10^3/uL (3.6-10.0)
[2019-08-03 06:22] LABS: PLATELET MORPHOLOGY COMMENT NORMAL (NORMAL)
[2019-08-03 06:25] LABS: ALANINE AMINOTRANSFERASE 30 Units/L (12-78); ALBUMIN 3.3 g/dL (3.4-5.0); ALKALINE PHOSPHATASE 48 Units/L (46-116); ASPARTATE AMINO TRANSFERASE 20 Units/L (15-37); BLOOD UREA NITROGEN 20 mg/dL (7-18); CALCIUM 8.6 mg/dL (8.5-10.1); CARBON DIOXIDE 30.1 mmol/L (21-32); CHLORIDE 101 mmol/L (98-107); COR CA(FOR HYPOALB) 9.2 mg/dL (8.5-10.1); COR NA(FOR HYPERGLY) 140 mmol/L (136-145); CREATININE 1.35 mg/dL (0.70-1.30); SODIUM 139 mmol/L (136-145); TOTAL PROTEIN 6.5 g/dL (6.4-8.2); eGFR NON BLACK RACES 53 (>60)
[2019-08-03] MEDS ORDERED: BENADRYL CAP 50 MG PO NR (08:00)
[2019-08-03] MEDS: LASIX PO SCH (08:03)
[2019-08-03] MEDS: PROTONIX INJ 40 MG VIAL IVP SCH ×2 (08:03→20:34)
[2019-08-03] MEDS: REQUIP PO SCH ×2 (08:03→20:34)
[2019-08-03] MEDS: LYRICA CAP 50 mg PO SCH ×2 (08:03→20:33)
[2019-08-03] MEDS: ZYLOPRIM PO SCH (08:03)
[2019-08-03] MEDS: HEMOCYTE-PLUS PO SCH (08:03)
[2019-08-03] MEDS: CARDURA PO SCH (08:03)
[2019-08-03] MEDS: WELLBUTRIN IR (PLAIN) PO SCH (08:09)
[2019-08-03] MEDS: PULMICORT NEB TX 0.5 MG NEB SCH ×2 (08:18→20:18)
[2019-08-03] MEDS: DUONEB 0.5 MG/3 MG (3 mL) NEB SCH ×4 (08:18→20:19)
--- NOTE | 2019-08-03 10:05 | CT ---
HISTORYElevated D-dimerSTUDYCTA chest with contrast for pulmonary embolusTechnique: Axial post-contrast images with coronal, sagittal, and 3 dimensional maximum intensity projection images obtained and evaluated. Dose reduction procedures were used with mA/kv adjusted for body size.[id number] is no evidence for acute pulmonary thromboembolic disease. Examination of the mediastinum demonstrated no evidence for mediastinal masses, enlarged mediastinal or enlarged hilar adenopathy, or significant aortic abnormality. Coronary artery calcifications are present. Calcific atherosclerotic change is present in the thoracic aorta without significant dilatation. No pleural effusions are identified. No chest wall or axillary abnormality is identified. Those portions of the upper abdominal organs visualized were within normal limits. Examination of the lung vicente demonstrated no significant, masses, alveolar infiltrates, areas of consolidation, or bronchiectasis. There is some peribronchial thickening suggestive of bronchitis which could be acute, chronic, or both. Best visualized on series 10, image 60 are posterior subpleural pulmonary nodules which are unchanged when compared with the prior examination 26 Sep 2017. A follow-up exam in 6 months should be considered. No change in these nodules would confirm that they are benign. There are some foci of subsegmental atelectasis bilaterally.IMPRESSIONNo evidence for acute pulmonary thromboembolic diseaseTwo posterior right-sided subpleural pulmonary nodules described above which are stable since 09/29/2017. One additional examination in 3-6 months will be required to confirm benignity.Bilateral areas of subsegmental atelectasisElectronically signed by: HELIO TAYLOR (Aug 03, 2019 10:04:25)
[2019-08-03] MEDS: HumuLIN R SC PRN ×3 (10:47→20:37)
[2019-08-03] MEDS: LIPITOR TAB 20 MG PO SCH (20:33)
[2019-08-03] MEDS: ROBITUSSIN DM PO PRN (23:08)
[2019-08-04] MEDS: NORCO 10/325 TAB PO PRN (04:42)
[2019-08-04 06:51] LABS: BASOPHILS % (AUTO) 0.1 % (0.2-1.0); EOSINOPHILS % (AUTO) 0.2 % (0.9-2.9); HEMATOCRIT 34.1 % (42.0-54.0); HEMOGLOBIN 11.3 g/dL (13.5-18.0); LYMPHOCYTES # (AUTO) 1.4 X10^3/uL (1.3-2.9); LYMPHOCYTES % (AUTO) 8.7 % (21.0-51.0); MEAN CORPUSCULAR HEMOGLOBIN 27.8 pg (27.0-34.0); MEAN CORPUSCULAR HGB CONC 33.2 g/dL (33.0-35.0); MEAN CORPUSCULAR VOLUME 83.8 fL (80.0-100.0); MEAN PLATELET VOLUME 9.4 fL (7.4-11.0); MONOCYTES # (AUTO) 0.8 x10^3/uL (0.3-0.8); MONOCYTES % (AUTO) 4.8 % (0.0-13.0); NEUTROPHILS # (AUTO) 14.1 x10^3/uL (2.2-4.8); NEUTROPHILS % (AUTO) 86.2 % (42.0-75.0); PLATELET COUNT 128 X10^3/uL (150.0-450.0); RED BLOOD COUNT 4.07 X10^6/uL (4.7-6.0); RED CELL DISTRIBUTION WIDTH 17.9 % (11.6-16.5); WHITE BLOOD COUNT 16.4 X10^3/uL (3.6-10.0)
[2019-08-04 07:04] LABS: ALANINE AMINOTRANSFERASE 32 Units/L (12-78); ALBUMIN 3.3 g/dL (3.4-5.0); ALKALINE PHOSPHATASE 50 Units/L (46-116); ASPARTATE AMINO TRANSFERASE 21 Units/L (15-37); BLOOD UREA NITROGEN 25 mg/dL (7-18); CALCIUM 8.5 mg/dL (8.5-10.1); CARBON DIOXIDE 31.4 mmol/L (21-32); CHLORIDE 103 mmol/L (98-107); COR CA(FOR HYPOALB) 9.1 mg/dL (8.5-10.1); COR NA(FOR HYPERGLY) 142 mmol/L (136-145); CREATININE 1.41 mg/dL (0.70-1.30); SODIUM 141 mmol/L (136-145); TOTAL PROTEIN 6.4 g/dL (6.4-8.2); eGFR NON BLACK RACES 51 (>60)
[2019-08-04] MEDS: PULMICORT NEB TX 0.5 MG NEB SCH (08:42)
[2019-08-04] MEDS: DUONEB 0.5 MG/3 MG (3 mL) NEB SCH (08:42)
[2019-08-04] MEDS ORDERED: K-DUR TAB 20 MEQ PO PRN (08:48)
[2019-08-04] MEDS ORDERED: KLOR-CON PO PRN (08:48)
[2019-08-04] MEDS ORDERED: MICRO K EXTEN CAP 10 MEQ PO PRN (08:48)
[2019-08-04] MEDS ORDERED: POTASSIUM CHL 40 MEQ/NS 0.45% 500 ML IV PRN (08:48)
[2019-08-04] MEDS ORDERED: POTASSIUM CHLORIDE LIQ 20 MEQ UDC PO PRN (08:48)
[2019-08-04] MEDS ORDERED: POTASSIUM CHL 60 MEQ/NS 0.45% 500 ML IV PRN (08:48)
[2019-08-04] MEDS ORDERED: K-RIDER 10 MEQ/NS 100 ML 10 MEQ/100 ML BAG IV PRN (08:48)
[2019-08-04] MEDS: REQUIP PO SCH (09:17)
[2019-08-04] MEDS: CARDURA PO SCH (09:18)
[2019-08-04] MEDS: LYRICA CAP 50 mg PO SCH (09:19)
[2019-08-04] MEDS: LASIX PO SCH (09:19)
[2019-08-04] MEDS: WELLBUTRIN IR (PLAIN) PO SCH (09:19)
[2019-08-04] MEDS: ZYLOPRIM PO SCH (09:20)
[2019-08-04] MEDS: HEMOCYTE-PLUS PO SCH (09:20)
[2019-08-04] MEDS: PROTONIX INJ 40 MG VIAL IVP SCH (09:20)
[2019-08-04] MEDS ORDERED: K-LYTE EFFERVESCENT ONE (09:39)
[2019-08-04] MEDS ORDERED: MAG-OX TAB PO NR (11:00)
[2019-08-04 12:52] VITALS: BP 127/58
== END 2019-08-04 13:10 | disposition home or self-care (01) | DRG 291 ==
LOC: ER 20:29 → ICU 20:31 → OBSVTOIN 23:41 → ER 07-30 00:19 → ICU 07-30 00:19 → UNDODISIN 08-04 13:10 → ER 08-04 13:10
PROVIDERS: ADMIT Internal Medicine; ATTEND Internal Medicine
DX: J18.8 Other pneumonia, unspecified organism; R41.0 Disorientation, unspecified; I50.9 Heart failure, unspecified; J44.1 Chronic obstructive pulmonary disease with (acute) exacerbation; K92.2 Gastrointestinal hemorrhage, unspecified; R40.4 Transient alteration of awareness
CPT/HCPCS: 36415; 36600; 70450; 71010; 71045; 71275; 80048; 80053; 80307; 81003; 82550; 82553; 82803; 83735; 84484; 85025; 85378; 85610; 85730; 93005; 94640; 96365; 96372; 96374; 97110; 97116; 97162; 99284; 99285; A4216; A4222; C9113; J1650; J1815; J2920; J7030; J7512; J7620; J7626; J8499

== ENCOUNTER 2020-01-06 17:18 | Inpatient (IN) ==
--- NOTE | 2020-01-06 17:41 | DR.FEVERAD ---
HPI Time seen Time Seen by Provider: 01/06/20 17:28 Complaints/Symptoms Chief Complaint Doctor Comments: Patient brought in by EMS for altered mental status , fever starting today. Source History Provided: Patient and EMS Mode of Arrival Mode of Arrival: EMS Timing Came on: Gradually Duration Duration: Constant Duration: Hours Severity Fever Severity/Quality: greater than 102 F Context Symptoms: Fever and Cough History of: Diabetes Modifying factors Modifying factors: Nothing Associated signs and symptoms Associated signs and symptoms: Lethargy PMH PMH Past Medical History: Anxiety, Arthritis, COPD, Coronary Artery Disease, Diabetes, GERD, Gout, Hypertension and PUD Past Surgical History: Yes Surgical History: Tonsillectomy Family History Family Medical History: Diabetes Mellitus and Cancer Social History Do you use any recreational Drugs:: No ROS Review of Systems Constitutional: Fever Eyes: No Symptoms Reported ENTM: No Symptoms Reported Respiratoy: Non-Productive Cough Cardiovascular: No Symptoms Reported Gastrointestinal/Abdominal: No Symptoms Reported Genitourinary: No Symptoms Reported Neurological: No Symptoms Reported Musculoskeletal: No Symptoms Reported Integumentary: No Symptoms Reported Hematologic/Lymphatic: No Symptoms Reported Endocrine: No Symptoms Reported Psychiatric: Depression All Other Systems: Reviewed and Negative PE Vital Signs Vitals: Temperature 102.8 F Pulse Rate 79 Respiratory Rate 22 Blood Pressure [Left Arm] 114/52 Blood Pressure [Right Arm] 128/78 Blood Pressure 124/56 O2 Sat by Pulse Oximetry 96 General Limitations: No Limitations General Appearance: Lethargic Head Head Exam: Normal Inspection, Atraumatic and Normocephalic Eyes Eye exam: Normal Appearance and EOMI ENT ENT Exam: Normal Exam and Normal Oropharynx External Ear Exam: Normal External Inspection Mouth Exam: Normal Inspection Teeth Exam: Normal Inspection Throat Exam: Normal Inspection Neck Neck Exam: Normal Inspection, Full ROM and Trachea Midline Respiratory Respiratory Exam: Normal Lung Sounds Bilat; negative Respiratory Distress Respiratory Exam: Bilateral: Wheezing and Bilateral: Crackles and Lower: Clear to Auscultation Cardiovascular Cardiovascular Exam: Regular Rate Abdominal Exam Abdominal Exam: Normal Inspection, Normal Bowel Sounds and Soft; negative Tenderness and Guarding Extremities Extremities Exam: Normal Inspection and Full ROM Back Back Exam: Normal Inspection and Full ROM Neurologic Neurological Exam: CN II-XII Intact; negative Alert Psychiatric Psychiatric Exam: Normal Affect Skin Skin Exam: Normal Color Type of Lesion: negative Rash COURSE Consultation Called: 19:58 Call Returned: 20:10 Consultation Comments: Case discussed with DR. Eduardo admit for respiratory symptoms ROR Labs Reviewed Result Diagrams: 01/06/20 17:47 01/06/20 17:47 Laboratory: WBC 9.6 X10^3/uL (3.6-10.0) 01/06/20 17:47 RBC 3.62 X10^6/uL (4.7-6.0) L 01/06/20 17:47 Hgb 10.7 g/dL (13.5-18.0) L 01/06/20 17:47 Hct 32.0 % (42.0-54.0) L 01/06/20 17:47 MCV 88.5 fL (80.0-100.0) 01/06/20 17:47 MCH 29.6 pg (27.0-34.0) 01/06/20 17:47 MCHC 33.4 g/dL (33.0-35.0) 01/06/20 17:47 RDW 16.1 % (11.6-16.5) 01/06/20 17:47 Plt Count 102 X10^3/uL (150.0-450.0) L 01/06/20 17:47 MPV 9.0 fL (7.4-11.0) 01/06/20 17:47 Neut % (Auto) 82.6 % (42.0-75.0) H 01/06/20 17:47 Lymph % (Auto) 8.5 % (21.0-51.0) L 01/06/20 17:47 [place] % (Auto) 8.0 % (0.0-13.0) 01/06/20 17:47 Eos % (Auto) 0.4 % (0.9-2.9) L 01/06/20 17:47 Baso % (Auto) 0.5 % (0.2-1.0) 01/06/20 17:47 Neut # (Auto) 8.0 x10^3/uL (2.2-4.8) H 01/06/20 17:47 Lymph # (Auto) 0.8 X10^3/uL (1.3-2.9) L 01/06/20 17:47 [place] # (Auto) 0.8 x10^3/uL (0.3-0.8) 01/06/20 17:47 Eos # (Auto) 0.0 x10^3/uL (0.0-0.2) 01/06/20 17:47 Baso # (Auto) 0.0 X10^3/uL (0.0-0.1) 01/06/20 17:47 Absolute Nucleated RBC 0.0 /100WBC 01/06/20 17:47 APTT 30.4 SECONDS (22.9-36.5) 01/06/20 17:47 PTT Comment - 01/06/20 17:47 Sample Site Rr 01/06/20 18:11 ABG pH 7.430 (7.35-7.45) 01/06/20 18:11 ABG pCO2 54.0 mmHg (35.0-45.0) H* 01/06/20 18:11 ABG pO2 69.0 mmHg (80.0-100.0) L 01/06/20 18:11 ABG HCO3 35.8 mmol/L (22-26) H* 01/06/20 18:11 ABG O2 Saturation 94.0 % (90-100) 01/06/20 18:11 ABG Base Excess 9.7 mmol/L (-2.0-2.0) H 01/06/20 18:11 Romain Test Pos 01/06/20 18:11 A-a Gradient 63.0 mmHg 01/06/20 18:11 FiO2 28.0 01/06/20 18:11 Blood Gas Comments Marianne well 01/06/20 18:11 Sodium 141 mmol/L (136-145) 01/06/20 17:47 Corrected Sodium 142 mmol/L (136-145) 01/06/20 17:47 Potassium 4.4 mmol/L (3.5-5.1) 01/06/20 17:47 Chloride 102 mmol/L (98-107) 01/06/20 17:47 Carbon Dioxide 33.2 mmol/L (21-32) H 01/06/20 17:47 BUN 24 mg/dL (7-18) H 01/06/20 17:47 Creatinine 1.55 mg/dL (0.70-1.30) H 01/06/20 17:47 Est GFR (MDRD) Af Amer 55 (>60) L 01/06/20 17:47 Est GFR (MDRD) Non-Af 45 (>60) L 01/06/20 17:47 Glucose 140 mg/dL (65-99) H 01/06/20 17:47 Lactic Acid 1.3 mmol/L (0.4-2.0) 01/06/20 17:47 Calcium 8.3 mg/dL (8.5-10.1) L 01/06/20 17:47 Corrected Calcium TNP 01/06/20 17:47 Magnesium 1.9 mg/dL (1.7-2.9) 01/06/20 17:47 Ferritin 219 ng/mL (26-388) 01/06/20 17:46 Total Bilirubin 0.80 mg/dL (0.2-1.0) 01/06/20 17:47 AST 70 Units/L (15-37) H 01/06/20 17:47 ALT 46 Units/L (12-78) 01/06/20 17:47 Alkaline Phosphatase 89 Units/L (46-116) 01/06/20 17:47 C-Reactive Protein 72.40 mg/L (0-3.0) H 01/06/20 17:46 B-Natriuretic Peptide 57.4 pg/mL (0-79) 01/06/20 17:47 Total Protein 6.7 g/dL (6.4-8.2) 01/06/20 17:47 Albumin 3.4 g/dL (3.4-5.0) 01/06/20 17:47 Globulin 3.3 g/dL (2.5-4.5) 01/06/20 17:47 Albumin/Globulin Ratio 1.0 Ratio (1.1-2.1) L 01/06/20 17:47 Lipase 96 Units/L (73-393) 01/06/20 17:47 Influenza Type A Ag Negative-presumptive (NEGATIVE) 01/06/20 18:12 Influenza Type B Ag Negative-presumptive (NEGATIVE) 01/06/20 18:12 SARS-CoV-2 (PCR) Negative (NEGATIVE) 01/06/20 18:12 XRAY XRAY Interpreted by: Radiologist X-ray Results: Chest: no infiltrates, pacemaker EKG Rate: 86 [place]: LAD Rhythm: NSR Block: None ST: Nonsp Opioid Opioid Risk Tool Age (Ciaran box if 16-45): No History of Preadolescent Sexual Abuse: No Total: 0 Total Score Risk Category: Low Risk Copyright: Pepe RAI predicting aberrant behaviors Instructions Forms: Excuse From Work Precautions for COVID19 Patient Portal Social Distancing
[2020-01-06] MEDS ORDERED: NS 1000 ML 1,000 ML ONE ×2 (17:46→17:54)
[2020-01-06] MEDS ORDERED: NARCAN INJ IVP ONE (17:51)
--- NOTE | 2020-01-06 17:51 | RAD ---
HISTORYFever, sepsisSTUDYChest AP [id number] is a pacemaker present on the right partially obscuring the right upper lobe old pacer wires are present on left unchanged from the prior examination. The heart is within normal limits in size. The pedro are normal. The lungs are free of acute alveolar infiltrat es. No pleural effusions are identified. Bony thorax is unremarkable.IMPRESSIONLungs clearElectronica lly signed by: HELIO TAYLOR (Jan 06, 2020 17:50:20)
[2020-01-06] MEDS ORDERED: TYLENOL 500 MG TAB EXTRA STRENGTH PO ONE ×2 (17:53→18:05)
[2020-01-06] MEDS ORDERED: NARCAN INJ ONE (17:56)
[2020-01-06 18:03] LABS: BASOPHILS % (AUTO) 0.5 % (0.2-1.0); EOSINOPHILS % (AUTO) 0.4 % (0.9-2.9); HEMOGLOBIN 10.7 g/dL (13.5-18.0); LYMPHOCYTES # (AUTO) 0.8 X10^3/uL (1.3-2.9); LYMPHOCYTES % (AUTO) 8.5 % (21.0-51.0); MEAN CORPUSCULAR HEMOGLOBIN 29.6 pg (27.0-34.0); MEAN CORPUSCULAR HGB CONC 33.4 g/dL (33.0-35.0); MEAN CORPUSCULAR VOLUME 88.5 fL (80.0-100.0); MONOCYTES # (AUTO) 0.8 x10^3/uL (0.3-0.8); NEUTROPHILS % (AUTO) 82.6 % (42.0-75.0); PLATELET COUNT 102 X10^3/uL (150.0-450.0); RED BLOOD COUNT 3.62 X10^6/uL (4.7-6.0); RED CELL DISTRIBUTION WIDTH 16.1 % (11.6-16.5); WHITE BLOOD COUNT 9.6 X10^3/uL (3.6-10.0)
[2020-01-06] MEDS: NS 1000 ML 1,000 ML IV SCH (18:04)
[2020-01-06 18:15] LABS: ALANINE AMINOTRANSFERASE 46 Units/L (12-78); ALBUMIN 3.4 g/dL (3.4-5.0); ALKALINE PHOSPHATASE 89 Units/L (46-116); ASPARTATE AMINO TRANSFERASE 70 Units/L (15-37); BLOOD UREA NITROGEN 24 mg/dL (7-18); CALCIUM 8.3 mg/dL (8.5-10.1); CARBON DIOXIDE 33.2 mmol/L (21-32); CHLORIDE 102 mmol/L (98-107); COR NA(FOR HYPERGLY) 142 mmol/L (136-145); CREATININE 1.55 mg/dL (0.70-1.30); LIPASE 96 Units/L (73-393); MAGNESIUM 1.9 mg/dL (1.7-2.9); SODIUM 141 mmol/L (136-145); TOTAL PROTEIN 6.7 g/dL (6.4-8.2); eGFR NON BLACK RACES 45 (>60)
[2020-01-06 18:16] LABS: ABG BASE EXCESS 9.7 mmol/L (-2.0-2.0)
[2020-01-06 18:17] LABS: ABG ALLEN TEST POS; ABG HCO3 35.8 mmol/L (22-26)
[2020-01-06 18:19] LABS: LACTIC ACID 1.3 mmol/L (0.4-2.0)
[2020-01-06] MEDS ORDERED: XOPENEX 1.25 MG/3 ML NEBULE NEB ONE ×2 (19:56→20:13)
[2020-01-06] MEDS ORDERED: SALINE 3% 15 ML NEB TX ONE (20:24)
[2020-01-06] MEDS ORDERED: SALINE 3% 15 ML NEB TX NEB ONE (20:35)
[2020-01-06] MEDS ORDERED: ROBITUSSIN DM PO SCH (21:00)
[2020-01-06] MEDS ORDERED: ROCEPHIN VIAL 1 GRAM 1 G in NS 100 ML IV + SPIKE MINIBAG* 100 ML IV SCH (21:00)
[2020-01-06] MEDS ORDERED: ROCEPHIN 1 GRAM IV PREMIX 1 G/50 ML IV.SOLN. IV ONE (21:17)
[2020-01-06] MEDS: ROCEPHIN VIAL 1 GRAM 1 G in NS 100 ML IV + SPIKE MINIBAG* 100 ML IV SCH (21:18)
[2020-01-07 00:01] LABS: BILIRUBIN,URINE NEGATIVE (NEGATIVE); BLOOD/HEMOGLOBIN,URINE NEGATIVE (NEGATIVE); GLUCOSE, URINE NEGATIVE (NEGATIVE); KETONES,URINE NEGATIVE (NEGATIVE); LEUKOCYTE ESTERASE ,URINE NEGATIVE (NEGATIVE); NITRITES,URINE NEGATIVE (NEGATIVE); PROTEIN,URINE NEGATIVE (NEGATIVE); UROBILINOGEN,URINE NORMAL (NORMAL)
[2020-01-07 00:05] LABS: APPEARANCE,URINE CLEAR (CLEAR); COLOR,URINE YELLOW (YELLOW)
[2020-01-07] MEDS: DUONEB 0.5 MG/3 MG (3 mL) NEB SCH ×6 (01:00→20:20)
[2020-01-07] MEDS: NS 1000 ML 1,000 ML IV SCH ×3 (01:49→23:23)
[2020-01-07 06:46] LABS: BASOPHILS # (AUTO) 0.1 X10^3/uL (0.0-0.1); BASOPHILS % (AUTO) 0.7 % (0.2-1.0); EOSINOPHILS # (AUTO) 0.2 x10^3/uL (0.0-0.2); EOSINOPHILS % (AUTO) 1.7 % (0.9-2.9); HEMATOCRIT 29.7 % (42.0-54.0); HEMOGLOBIN 9.8 g/dL (13.5-18.0); LYMPHOCYTES % (AUTO) 17.8 % (21.0-51.0); MEAN CORPUSCULAR HEMOGLOBIN 29.8 pg (27.0-34.0); MEAN CORPUSCULAR HGB CONC 33.1 g/dL (33.0-35.0); MEAN PLATELET VOLUME 10.4 fL (7.4-11.0); MONOCYTES % (AUTO) 8.8 % (0.0-13.0); NEUTROPHILS # (AUTO) 8.1 x10^3/uL (2.2-4.8); PLATELET COUNT 106 X10^3/uL (150.0-450.0); RED CELL DISTRIBUTION WIDTH 15.9 % (11.6-16.5); WHITE BLOOD COUNT 11.4 X10^3/uL (3.6-10.0)
[2020-01-07 06:57] LABS: ALANINE AMINOTRANSFERASE 42 Units/L (12-78); ALBUMIN 2.8 g/dL (3.4-5.0); ALKALINE PHOSPHATASE 74 Units/L (46-116); ASPARTATE AMINO TRANSFERASE 54 Units/L (15-37); BLOOD UREA NITROGEN 21 mg/dL (7-18); CALCIUM 7.7 mg/dL (8.5-10.1); CARBON DIOXIDE 32.9 mmol/L (21-32); CHLORIDE 103 mmol/L (98-107); COR CA(FOR HYPOALB) 8.7 mg/dL (8.5-10.1); COR NA(FOR HYPERGLY) 142 mmol/L (136-145); CREATININE 1.23 mg/dL (0.70-1.30); SODIUM 141 mmol/L (136-145); TOTAL PROTEIN 5.8 g/dL (6.4-8.2); eGFR NON BLACK RACES 59 (>60)
[2020-01-07 07:16] LABS: PLATELET MORPHOLOGY COMMENT NORMAL (NORMAL)
--- NOTE | 2020-01-07 09:25 | DR.H&P ---
H&P History & Physical for Day of: H&P Date: 01/07/20 Chief Complaint Chief Complaint: Fever, Altered mental status Allergies Allergies Allergy/AdvReac Type Severity Reaction Status Date / Time codeine Allergy Verified 07/18/19 17:25 iodine Allergy Verified 07/18/19 17:25 History of Present Illness History of Present Illness: Pt is a 84 yo m pmhx HTN, DMT2, COPD, Pacemaker, presenting with fever and altered mental status admitted for Pneumonia and COPD exacerbation. He reports feeling sick for the past 2-3 days. His mental status did improve in the ED after receiving naloxone. Labs/imaging: Wbc 9.6>11.4, Hgb 10.7>9.8, Plt 102>106, Na 141, K 3.3, Cr 1.55>1.23, Gluc 122, CRP 72, CXR negative, Rapid flu and COVID negative. AB.43/54/69/35/94% on RA. He was started on antibiotics: Rocephin+Azithromycin, supplemental oxygen, bronchodilators, pneumonia protocol, and IVF NS@125ml/h. Restart home medications. Continue to monitor and follow up labs/imaging in the morning. Past Medical History Past Medical History: Anxiety, Arthritis, COPD, Coronary Artery Disease, Diabetes, GERD, Gout, Hypertension and PUD Past Surgical History Surgical History: Tonsillectomy Family History Family Medical History: Diabetes Mellitus and Cancer Social History Does patient currently use any type of tobacco product: No Have you used tobacco products in the last 12 months: No Type of Tobacco Use: None Does any household member use tobacco: No Alcohol Use: None Drug Use: None Medications Home Medications: codeine Allergy (Verified 07/18/19 17:25) iodine Allergy (Verified 07/18/19 17:25) CONTINUE taking the following medications famotidine 40 mg PO HS 01/06/20 [History] ipratropium-albuterol [Combivent Respimat] 1 spray INHALATION DAILY 01/06/20 [History] omeprazole 40 mg PO DAILY 01/06/20 [History] potassium chloride 20 meq PO DAILY 01/06/20 [History] prednisone 5 mg PO DAILY 01/06/20 [History] Labs Result Diagrams: 01/07/20 06:09 01/07/20 06:09 Labs: Laboratory WBC 11.4 X10^3/uL (3.6-10.0) H 01/07/20 06:09 RBC 3.30 X10^6/uL (4.7-6.0) L 01/07/20 06:09 Hgb 9.8 g/dL (13.5-18.0) L 01/07/20 06:09 Hct 29.7 % (42.0-54.0) L 01/07/20 06:09 MCV 90.0 fL (80.0-100.0) 01/07/20 06:09 MCH 29.8 pg (27.0-34.0) 01/07/20 06:09 MCHC 33.1 g/dL (33.0-35.0) 01/07/20 06:09 RDW 15.9 % (11.6-16.5) 01/07/20 06:09 Plt Count 106 X10^3/uL (150.0-450.0) L 01/07/20 06:09 Plt Count Comment Adequate (ADEQUATE) 01/07/20 06:09 Plt Count Comment Cancelled 01/07/20 06:09 MPV 10.4 fL (7.4-11.0) 01/07/20 06:09 Neut % (Auto) 71.0 % (42.0-75.0) 01/07/20 06:09 Lymph % (Auto) 17.8 % (21.0-51.0) L 01/07/20 06:09 [place] % (Auto) 8.8 % (0.0-13.0) 01/07/20 06:09 Eos % (Auto) 1.7 % (0.9-2.9) 01/07/20 06:09 Baso % (Auto) 0.7 % (0.2-1.0) 01/07/20 06:09 Neut # (Auto) 8.1 x10^3/uL (2.2-4.8) H 01/07/20 06:09 Lymph # (Auto) 2.0 X10^3/uL (1.3-2.9) 01/07/20 06:09 [place] # (Auto) 1.0 x10^3/uL (0.3-0.8) H 01/07/20 06:09 Eos # (Auto) 0.2 x10^3/uL (0.0-0.2) 01/07/20 06:09 Baso # (Auto) 0.1 X10^3/uL (0.0-0.1) 01/07/20 06:09 Absolute Nucleated RBC 0.2 /100WBC 01/07/20 06:09 Total Counted Cancelled 01/07/20 06:09 Neutrophils % (Manual) Cancelled 01/07/20 06:09 Band Neutrophils % Cancelled 01/07/20 06:09 Lymphocytes % (Manual) Cancelled 01/07/20 06:09 Monocytes % (Manual) Cancelled 01/07/20 06:09 Eosinophils % (Manual) Cancelled 01/07/20 06:09 Basophils % (Manual) Cancelled 01/07/20 06:09 Metamyelocytes % Cancelled 01/07/20 06:09 Myelocytes % Cancelled 01/07/20 06:09 Promyelocytes % Cancelled 01/07/20 06:09 Nucleated RBCs Cancelled 01/07/20 06:09 Atypical Lymphocytes Cancelled 01/07/20 06:09 Blast Cells Cancelled 01/07/20 06:09 Smudge Cells Cancelled 01/07/20 06:09 Toxic Granulation Cancelled 01/07/20 06:09 Dohle Bodies Cancelled 01/07/20 06:09 Terri Rods Cancelled 01/07/20 06:09 Plt Clumps, EDTA Cancelled 01/07/20 06:09 Giant Platelets Cancelled 01/07/20 06:09 Plt Morphology Comment Cancelled 01/07/20 06:09 Plt Morphology Comment Normal (NORMAL) 01/07/20 06:09 RBC Morphology Cancelled 01/07/20 06:09 RBC Morphology Normal (NORMAL) 01/07/20 06:09 Dimorphic RBCs Cancelled 01/07/20 06:09 Polychromasia Cancelled 01/07/20 06:09 Hypochromasia Cancelled 01/07/20 06:09 Poikilocytosis Cancelled 01/07/20 06:09 Basophilic Stippling Cancelled 01/07/20 06:09 Anisocytosis Cancelled 01/07/20 06:09 Microcytosis Cancelled 01/07/20 06:09 Macrocytosis Cancelled 01/07/20 06:09 Spherocytes Cancelled 01/07/20 06:09 Pappenheimer Bodies Cancelled 01/07/20 06:09 Sickle Cells Cancelled 01/07/20 06:09 Target Cells Cancelled 01/07/20 06:09 Tear Drop Cells Cancelled 01/07/20 06:09 Ovalocytes Cancelled 01/07/20 06:09 Stomatocytes Cancelled 01/07/20 06:09 Helmet Cells Cancelled 01/07/20 06:09 [place] Bodies Cancelled 01/07/20 06:09 [place] Rings Cancelled 01/07/20 06:09 [place] Cells Cancelled 01/07/20 06:09 Crenated Cell Cancelled 01/07/20 06:09 Acanthocytes (Spur) Cancelled 01/07/20 06:09 Rouleaux Cancelled 01/07/20 06:09 Schistocytes Cancelled 01/07/20 06:09 APTT 30.4 SECONDS (22.9-36.5) 01/06/20 17:47 PTT Comment - 01/06/20 17:47 Sample Site Rr 01/06/20 18:11 ABG pH 7.430 (7.35-7.45) 01/06/20 18:11 ABG pCO2 54.0 mmHg (35.0-45.0) H* 01/06/20 18:11 ABG pO2 69.0 mmHg (80.0-100.0) L 01/06/20 18:11 ABG HCO3 35.8 mmol/L (22-26) H* 01/06/20 18:11 ABG O2 Saturation 94.0 % (90-100) 01/06/20 18:11 ABG Base Excess 9.7 mmol/L (-2.0-2.0) H 01/06/20 18:11 Romain Test Pos 01/06/20 18:11 A-a Gradient 63.0 mmHg 01/06/20 18:11 FiO2 28.0 01/06/20 18:11 Blood Gas Comments Marianne well 01/06/20 18:11 Sodium 141 mmol/L (136-145) 01/07/20 06:09 Corrected Sodium 142 mmol/L (136-145) 01/07/20 06:09 Potassium 3.3 mmol/L (3.5-5.1) L 01/07/20 06:09 Chloride 103 mmol/L (98-107) 01/07/20 06:09 Carbon Dioxide 32.9 mmol/L (21-32) H 01/07/20 06:09 BUN 21 mg/dL (7-18) H 01/07/20 06:09 Creatinine 1.23 mg/dL (0.70-1.30) 01/07/20 06:09 Est GFR (MDRD) Af Amer > 60 (>60) 01/07/20 06:09 Est GFR (MDRD) Non-Af 59 (>60) 01/07/20 06:09 Glucose 122 mg/dL (65-99) H 01/07/20 06:09 Lactic Acid 1.3 mmol/L (0.4-2.0) 01/06/20 17:47 Calcium 7.7 mg/dL (8.5-10.1) L 01/07/20 06:09 Corrected Calcium 8.7 mg/dL (8.5-10.1) 01/07/20 06:09 Magnesium 1.9 mg/dL (1.7-2.9) 01/06/20 17:47 Ferritin 219 ng/mL (26-388) 01/06/20 17:46 Total Bilirubin 0.60 mg/dL (0.2-1.0) 01/07/20 06:09 AST 54 Units/L (15-37) H 01/07/20 06:09 ALT 42 Units/L (12-78) 01/07/20 06:09 Alkaline Phosphatase 74 Units/L (46-116) 01/07/20 06:09 C-Reactive Protein 72.40 mg/L (0-3.0) H 01/06/20 17:46 B-Natriuretic Peptide 57.4 pg/mL (0-79) 01/06/20 17:47 Total Protein 5.8 g/dL (6.4-8.2) L 01/07/20 06:09 Albumin 2.8 g/dL (3.4-5.0) L 01/07/20 06:09 Globulin 3.0 g/dL (2.5-4.5) 01/07/20 06:09 Albumin/Globulin Ratio 0.9 Ratio (1.1-2.1) L 01/07/20 06:09 Lipase 96 Units/L (73-393) 01/06/20 17:47 Specimen Type Clean catch urine 01/06/20 23:33 Urine Color Yellow (YELLOW) 01/06/20 23:33 Urine Appearance Clear (CLEAR) 01/06/20 23:33 Urine pH 5.0 (5.0 - 8.0) 01/06/20 23:33 Ur Specific [place] 1.015 (1.000-1.030) 01/06/20 23:33 Urine Protein Negative (NEGATIVE) 01/06/20 23:33 Urine Glucose (UA) Negative (NEGATIVE) 01/06/20 23:33 Urine Ketones Negative (NEGATIVE) 01/06/20 23:33 Urine Occult Blood Negative (NEGATIVE) 01/06/20 23:33 Urine Nitrite Negative (NEGATIVE) 01/06/20 23:33 Urine Bilirubin Negative (NEGATIVE) 01/06/20 23:33 Urine Urobilinogen Normal (NORMAL) 01/06/20 23:33 Ur Leukocyte Esterase Negative (NEGATIVE) 01/06/20 23:33 Influenza Type A Ag Negative-presumptive (NEGATIVE) 01/06/20 18:12 Influenza Type B Ag Negative-presumptive (NEGATIVE) 01/06/20 18:12 SARS-CoV-2 (PCR) Negative (NEGATIVE) 01/06/20 18:12 Review of Systems Constitutional: Fever and Chills Eyes: No Symptoms Reported ENT: No Symptoms Reported Respiratory: Cough, Shortness of Breath, Sputum and Wheezing Cardiovascular: No Symptoms Reported Gastrointestinal: No Symptoms Reported Genitourinary: No Symptoms Reported Musculoskeletal: Back Pain Skin: No Symptoms Reported Neurological: No Symptoms Reported Physical Exam Vital Signs: Temperature 98.1 F Pulse Rate [Left Brachial] 65 Pulse Rate 79 Respiratory Rate 14 Blood Pressure [Left Arm] 120/57 Blood Pressure [Right Arm] 123/59 Blood Pressure 124/56 O2 Sat by Pulse Oximetry 100 Oriented: Normal Eyes: Normal Ear: Normal Respiratory: Diminished Throughout, Rhonchi Throughout and Wheezes Throughout Cardiovascular: Normal : Normal Auscultation: Bowel Sounds: Normal Palpation: Normal Tenderness: Normal Skin: Normal Musculoskeletal: Normal Psychiatric: Normal Speech Pattern: Clear Assessment/Plan (1) Pneumonia: Status: Acute Plan: Rocephin+Azithromycin Pneumonia protocol (2) COPD (chronic obstructive pulmonary disease): Qualifiers: COPD type: COPD with acute exacerbation Qualified Code(s): J44.1 - Chronic obstructive pulmonary disease with (acute) exacerbation Status: Acute Plan: RT, Bronchodilators. (3) ROYA (acute kidney injury): Status: Acute Plan: IVF (4) Hypokalemia: Status: Acute Plan: replete per protocol Review H&P Reviewed: Yes Patient was examined?: Yes
[2020-01-07] MEDS: VSL#3 PO SCH (09:43)
[2020-01-07] MEDS: PULMICORT NEB TX 0.5 MG NEB SCH ×2 (09:45→20:20)
[2020-01-07] MEDS ORDERED: ZITHROMAX INJ 500 MG VIAL IV ONE (10:12)
[2020-01-07] MEDS ORDERED: NS 250 ML IV 250 ML IV ONE (10:13)
[2020-01-07] MEDS ORDERED: NORCO 10/325 TAB PO PRN (10:20)
[2020-01-07] MEDS: PriLOSEC PO SCH (11:09)
[2020-01-07] MEDS: REQUIP PO SCH ×2 (11:09→21:21)
[2020-01-07] MEDS: LYRICA CAP 50 mg PO SCH ×2 (11:09→21:21)
[2020-01-07] MEDS: ZITHROMAX INJ 500 MG VIAL 250 MG in NS 250 ML IV 250 ML IV SCH (11:10)
[2020-01-07] MEDS: K-DUR TAB 20 MEQ PO SCH (11:10)
[2020-01-07] MEDS: ZYLOPRIM PO SCH (11:10)
[2020-01-07] MEDS ORDERED: COMBIVENT RESPIMAT IN SCH (13:00)
[2020-01-07] MEDS: NORCO 10/325 TAB PO PRN ×2 (14:32→21:26)
[2020-01-07] MEDS ORDERED: POTASSIUM CHL 60 MEQ/NS 0.45% 500 ML IV PRN (20:23)
[2020-01-07] MEDS ORDERED: KLOR-CON PO PRN (20:23)
[2020-01-07] MEDS ORDERED: POTASSIUM CHL 40 MEQ/NS 0.45% 500 ML IV PRN (20:23)
[2020-01-07] MEDS ORDERED: MICRO K EXTEN CAP 10 MEQ PO PRN (20:23)
[2020-01-07] MEDS ORDERED: K-DUR TAB 20 MEQ PO PRN (20:23)
[2020-01-07] MEDS ORDERED: K-RIDER 10 MEQ/NS 100 ML 10 MEQ/100 ML BAG IV PRN (20:23)
[2020-01-07] MEDS ORDERED: POTASSIUM CHLORIDE LIQ 20 MEQ UDC PO PRN (20:23)
[2020-01-07] MEDS: LIPITOR TAB 20 MG PO SCH (21:20)
[2020-01-07] MEDS: PEPCID TAB 20 MG PO SCH (21:21)
[2020-01-07] MEDS: ROCEPHIN VIAL 1 GRAM 1 G in NS 100 ML IV + SPIKE MINIBAG* 100 ML IV SCH (21:22)
[2020-01-07 21:32] VITALS: BMI 31.6
[2020-01-08] MEDS: DUONEB 0.5 MG/3 MG (3 mL) NEB SCH ×6 (01:00→20:40)
[2020-01-08] MEDS: NS 1000 ML 1,000 ML IV SCH ×4 (04:24→20:54)
[2020-01-08 06:22] LABS: BASOPHILS % (AUTO) 0.4 % (0.2-1.0); EOSINOPHILS # (AUTO) 0.3 x10^3/uL (0.0-0.2); EOSINOPHILS % (AUTO) 4.2 % (0.9-2.9); HEMATOCRIT 26.6 % (42.0-54.0); LYMPHOCYTES # (AUTO) 1.7 X10^3/uL (1.3-2.9); LYMPHOCYTES % (AUTO) 28.4 % (21.0-51.0); MEAN CORPUSCULAR HEMOGLOBIN 29.9 pg (27.0-34.0); MEAN CORPUSCULAR HGB CONC 33.6 g/dL (33.0-35.0); MEAN CORPUSCULAR VOLUME 88.8 fL (80.0-100.0); MEAN PLATELET VOLUME 9.9 fL (7.4-11.0); MONOCYTES # (AUTO) 0.6 x10^3/uL (0.3-0.8); MONOCYTES % (AUTO) 9.8 % (0.0-13.0); NEUTROPHILS # (AUTO) 3.4 x10^3/uL (2.2-4.8); NEUTROPHILS % (AUTO) 57.2 % (42.0-75.0); PLATELET COUNT 74 X10^3/uL (150.0-450.0); RED CELL DISTRIBUTION WIDTH 15.8 % (11.6-16.5)
[2020-01-08 06:49] LABS: ALANINE AMINOTRANSFERASE 40 Units/L (12-78); ALBUMIN 2.5 g/dL (3.4-5.0); ALKALINE PHOSPHATASE 76 Units/L (46-116); ASPARTATE AMINO TRANSFERASE 44 Units/L (15-37); BLOOD UREA NITROGEN 13 mg/dL (7-18); CALCIUM 8.1 mg/dL (8.5-10.1); CARBON DIOXIDE 27.3 mmol/L (21-32); CHLORIDE 107 mmol/L (98-107); COR CA(FOR HYPOALB) 9.3 mg/dL (8.5-10.1); COR NA(FOR HYPERGLY) 141 mmol/L (136-145); CREATININE 0.87 mg/dL (0.70-1.30); SODIUM 140 mmol/L (136-145); TOTAL PROTEIN 5.5 g/dL (6.4-8.2); eGFR NON BLACK RACES > 60 (>60)
[2020-01-08] MEDS: PULMICORT NEB TX 0.5 MG NEB SCH ×2 (08:31→20:40)
[2020-01-08] MEDS ORDERED: REQUIP PO ONE (08:50)
[2020-01-08] MEDS ORDERED: ZITHROMAX INJ 500 MG VIAL IV ONE (08:51)
[2020-01-08] MEDS ORDERED: NS 250 ML IV 250 ML IV ONE (08:52)
[2020-01-08] MEDS: CARDURA PO SCH (09:51)
[2020-01-08] MEDS: LYRICA CAP 50 mg PO SCH ×2 (09:51→20:55)
[2020-01-08] MEDS: VSL#3 PO SCH (09:51)
[2020-01-08] MEDS: PriLOSEC PO SCH (09:52)
[2020-01-08] MEDS: REQUIP PO SCH ×2 (09:52→20:56)
[2020-01-08] MEDS: ZYLOPRIM PO SCH (09:52)
[2020-01-08] MEDS: K-DUR TAB 20 MEQ PO SCH (09:52)
[2020-01-08] MEDS: ZITHROMAX INJ 500 MG VIAL 250 MG in NS 250 ML IV 250 ML IV SCH (09:53)
--- NOTE | 2020-01-08 10:44 | PCM.PROG ---
Progress Note Progress Note for Day of Date of Exam: 01/08/20 Subjective Subjective: Pt is a 84 yo m pmhx HTN, DMT2, COPD, Pacemaker, presenting with fever and altered mental status admitted for Pneumonia and COPD exacerbation. Pt is sitting up in bed this morning, reporting significant improvement in symptoms. Labs/imaging: Wbc 11.4>6, Hgb 9, Plt 74, Na 140, K 3.9, Cr 1.23>0.87, Gluc 128, CXR negative, Rapid flu and COVID negative. Treatments include antibiotics: Rocephin + Azithromycin, supplemental oxygen, bronchodilators, pneumonia protocol, and IVF NS@125ml/h. Home medications were resumed. Will add prednisone today. Continue to monitor and follow up labs/imaging in the morning. Past Medical Family Social History Past Med/Fam/Surg Hx: No changes since H&P Allergies: Allergies codeine Allergy (Verified 07/18/19 17:25) iodine Allergy (Verified 07/18/19 17:25) Review of Systems ROS: No change since H&P Vital Signs and I&O's Vital Signs: Temperature 98.4 F Pulse Rate [Left Brachial] 59 Pulse Rate 60 Respiratory Rate 22 Blood Pressure [Left Arm] 139/62 Blood Pressure [Right Arm] 123/59 Blood Pressure 124/56 O2 Sat by Pulse Oximetry 98 Intake and Output: Intake & Output 01/05/20 01/06/20 01/07/20 01/08/20 23:59 23:59 23:59 23:59 Intake Total 414 / 414 2894 / 2894 1051 / 1051 Output Total 400 / 400 850 / 850 Balance 2044 / 2044 1051 / 1051 Physical Exam Oriented: Normal Eyes: Normal Ear: Normal Respiratory: Diminished Cardiovascular: Normal : Normal Auscultation: Bowel Sounds: Normal Tenderness: Normal Skin: Normal Musculoskeletal: Normal Psychiatric: Normal Speech Pattern: Appropriate Laboratory and Diagnostics Result Diagrams: 01/08/20 05:50 01/08/20 05:50 Labs: 01/06/20 17:53 Blood Blood Culture - Preliminary 01/06/20 17:47 Blood Blood Culture - Preliminary Laboratory WBC 6.0 X10^3/uL (3.6-10.0) 01/08/20 05:50 RBC 3.00 X10^6/uL (4.7-6.0) L 01/08/20 05:50 Hgb 9.0 g/dL (13.5-18.0) L 01/08/20 05:50 Hct 26.6 % (42.0-54.0) L 01/08/20 05:50 MCV 88.8 fL (80.0-100.0) 01/08/20 05:50 MCH 29.9 pg (27.0-34.0) 01/08/20 05:50 MCHC 33.6 g/dL (33.0-35.0) 01/08/20 05:50 RDW 15.8 % (11.6-16.5) 01/08/20 05:50 Plt Count 74 X10^3/uL (150.0-450.0) L 01/08/20 05:50 Plt Count Comment Adequate (ADEQUATE) 01/07/20 06:09 Plt Count Comment Cancelled 01/07/20 06:09 MPV 9.9 fL (7.4-11.0) 01/08/20 05:50 Neut % (Auto) 57.2 % (42.0-75.0) 01/08/20 05:50 Lymph % (Auto) 28.4 % (21.0-51.0) 01/08/20 05:50 [place] % (Auto) 9.8 % (0.0-13.0) 01/08/20 05:50 Eos % (Auto) 4.2 % (0.9-2.9) H 01/08/20 05:50 Baso % (Auto) 0.4 % (0.2-1.0) 01/08/20 05:50 Neut # (Auto) 3.4 x10^3/uL (2.2-4.8) 01/08/20 05:50 Lymph # (Auto) 1.7 X10^3/uL (1.3-2.9) 01/08/20 05:50 [place] # (Auto) 0.6 x10^3/uL (0.3-0.8) 01/08/20 05:50 Eos # (Auto) 0.3 x10^3/uL (0.0-0.2) H 01/08/20 05:50 Baso # (Auto) 0.0 X10^3/uL (0.0-0.1) 01/08/20 05:50 Absolute Nucleated RBC 0.0 /100WBC 01/08/20 05:50 Total Counted Cancelled 01/07/20 06:09 Neutrophils % (Manual) Cancelled 01/07/20 06:09 Band Neutrophils % Cancelled 01/07/20 06:09 Lymphocytes % (Manual) Cancelled 01/07/20 06:09 Monocytes % (Manual) Cancelled 01/07/20 06:09 Eosinophils % (Manual) Cancelled 01/07/20 06:09 Basophils % (Manual) Cancelled 01/07/20 06:09 Metamyelocytes % Cancelled 01/07/20 06:09 Myelocytes % Cancelled 01/07/20 06:09 Promyelocytes % Cancelled 01/07/20 06:09 Nucleated RBCs Cancelled 01/07/20 06:09 Atypical Lymphocytes Cancelled 01/07/20 06:09 Blast Cells Cancelled 01/07/20 06:09 Smudge Cells Cancelled 01/07/20 06:09 Toxic Granulation Cancelled 01/07/20 06:09 Dohle Bodies Cancelled 01/07/20 06:09 Terri Rods Cancelled 01/07/20 06:09 Plt Clumps, EDTA Cancelled 01/07/20 06:09 Giant Platelets Cancelled 01/07/20 06:09 Plt Morphology Comment Cancelled 01/07/20 06:09 Plt Morphology Comment Normal (NORMAL) 01/07/20 06:09 RBC Morphology Cancelled 01/07/20 06:09 RBC Morphology Normal (NORMAL) 01/07/20 06:09 Dimorphic RBCs Cancelled 01/07/20 06:09 Polychromasia Cancelled 01/07/20 06:09 Hypochromasia Cancelled 01/07/20 06:09 Poikilocytosis Cancelled 01/07/20 06:09 Basophilic Stippling Cancelled 01/07/20 06:09 Anisocytosis Cancelled 01/07/20 06:09 Microcytosis Cancelled 01/07/20 06:09 Macrocytosis Cancelled 01/07/20 06:09 Spherocytes Cancelled 01/07/20 06:09 Pappenheimer Bodies Cancelled 01/07/20 06:09 Sickle Cells Cancelled 01/07/20 06:09 Target Cells Cancelled 01/07/20 06:09 Tear Drop Cells Cancelled 01/07/20 06:09 Ovalocytes Cancelled 01/07/20 06:09 Stomatocytes Cancelled 01/07/20 06:09 Helmet Cells Cancelled 01/07/20 06:09 [place] Bodies Cancelled 01/07/20 06:09 [place] Rings Cancelled 01/07/20 06:09 [place] Cells Cancelled 01/07/20 06:09 Crenated Cell Cancelled 01/07/20 06:09 Acanthocytes (Spur) Cancelled 01/07/20 06:09 Rouleaux Cancelled 01/07/20 06:09 Schistocytes Cancelled 01/07/20 06:09 APTT 30.4 SECONDS (22.9-36.5) 01/06/20 17:47 PTT Comment - 01/06/20 17:47 Sample Site Rr 01/06/20 18:11 ABG pH 7.430 (7.35-7.45) 01/06/20 18:11 ABG pCO2 54.0 mmHg (35.0-45.0) H* 01/06/20 18:11 ABG pO2 69.0 mmHg (80.0-100.0) L 01/06/20 18:11 ABG HCO3 35.8 mmol/L (22-26) H* 01/06/20 18:11 ABG O2 Saturation 94.0 % (90-100) 01/06/20 18:11 ABG Base Excess 9.7 mmol/L (-2.0-2.0) H 01/06/20 18:11 Romain Test Pos 01/06/20 18:11 A-a Gradient 63.0 mmHg 01/06/20 18:11 FiO2 28.0 01/06/20 18:11 Blood Gas Comments Marianne well 01/06/20 18:11 Sodium 140 mmol/L (136-145) 01/08/20 05:50 Corrected Sodium 141 mmol/L (136-145) 01/08/20 05:50 Potassium 3.9 mmol/L (3.5-5.1) 01/08/20 05:50 Chloride 107 mmol/L (98-107) 01/08/20 05:50 Carbon Dioxide 27.3 mmol/L (21-32) 01/08/20 05:50 BUN 13 mg/dL (7-18) 01/08/20 05:50 Creatinine 0.87 mg/dL (0.70-1.30) 01/08/20 05:50 Est GFR (MDRD) Af Amer > 60 (>60) 01/08/20 05:50 Est GFR (MDRD) Non-Af > 60 (>60) 01/08/20 05:50 Glucose 128 mg/dL (65-99) H 01/08/20 05:50 Lactic Acid 1.3 mmol/L (0.4-2.0) 01/06/20 17:47 Calcium 8.1 mg/dL (8.5-10.1) L 01/08/20 05:50 Corrected Calcium 9.3 mg/dL (8.5-10.1) 01/08/20 05:50 Magnesium 1.9 mg/dL (1.7-2.9) 01/06/20 17:47 Ferritin 219 ng/mL (26-388) 01/06/20 17:46 Total Bilirubin 0.50 mg/dL (0.2-1.0) 01/08/20 05:50 AST 44 Units/L (15-37) H 01/08/20 05:50 ALT 40 Units/L (12-78) 01/08/20 05:50 Alkaline Phosphatase 76 Units/L (46-116) 01/08/20 05:50 C-Reactive Protein 72.40 mg/L (0-3.0) H 01/06/20 17:46 B-Natriuretic Peptide 57.4 pg/mL (0-79) 01/06/20 17:47 Total Protein 5.5 g/dL (6.4-8.2) L 01/08/20 05:50 Albumin 2.5 g/dL (3.4-5.0) L 01/08/20 05:50 Globulin 3.0 g/dL (2.5-4.5) 01/08/20 05:50 Albumin/Globulin Ratio 0.8 Ratio (1.1-2.1) L 01/08/20 05:50 Lipase 96 Units/L (73-393) 01/06/20 17:47 Specimen Type Clean catch urine 01/06/20 23:33 Urine Color Yellow (YELLOW) 01/06/20 23:33 Urine Appearance Clear (CLEAR) 01/06/20 23:33 Urine pH 5.0 (5.0 - 8.0) 01/06/20 23:33 Ur Specific [place] 1.015 (1.000-1.030) 01/06/20 23:33 Urine Protein Negative (NEGATIVE) 01/06/20 23:33 Urine Glucose (UA) Negative (NEGATIVE) 01/06/20 23:33 Urine Ketones Negative (NEGATIVE) 01/06/20 23:33 Urine Occult Blood Negative (NEGATIVE) 01/06/20 23:33 Urine Nitrite Negative (NEGATIVE) 01/06/20 23:33 Urine Bilirubin Negative (NEGATIVE) 01/06/20 23:33 Urine Urobilinogen Normal (NORMAL) 01/06/20 23:33 Ur Leukocyte Esterase Negative (NEGATIVE) 01/06/20 23:33 Influenza Type A Ag Negative-presumptive (NEGATIVE) 01/06/20 18:12 Influenza Type B Ag Negative-presumptive (NEGATIVE) 01/06/20 18:12 SARS-CoV-2 (PCR) Negative (NEGATIVE) 01/06/20 18:12 Plan (1) Pneumonia: Status: Acute Plan: Rocephin+Azithromycin Pneumonia protocol (2) COPD (chronic obstructive pulmonary disease): Status: Acute Qualifiers: COPD type: COPD with acute exacerbation Qualified Code(s): J44.1 - Chronic obstructive pulmonary disease with (acute) exacerbation Plan: RT, Bronchodilators. (3) ROYA (acute kidney injury): Status: Acute Plan: IVF (4) Hypokalemia: Status: Acute Plan: replete per protocol
[2020-01-08] MEDS: BUPROPION HCL 75 MG PO SCH (14:25)
[2020-01-08] MEDS: PREDNISONE TAB 20 MG PO SCH (14:26)
[2020-01-08] MEDS: LIPITOR TAB 20 MG PO SCH (20:54)
[2020-01-08] MEDS: PEPCID TAB 20 MG PO SCH (20:56)
[2020-01-08] MEDS: ROCEPHIN VIAL 1 GRAM 1 G in NS 100 ML IV + SPIKE MINIBAG* 100 ML IV SCH (22:05)
[2020-01-08] MEDS: NORCO 10/325 TAB PO PRN (22:41)
[2020-01-09] MEDS: DUONEB 0.5 MG/3 MG (3 mL) NEB SCH ×6 (00:37→21:00)
[2020-01-09] MEDS: NS 1000 ML 1,000 ML IV SCH ×4 (03:02→17:01)
[2020-01-09] MEDS: NORCO 10/325 TAB PO PRN (04:42)
[2020-01-09 06:38] LABS: BASOPHILS % (AUTO) 0.3 % (0.2-1.0); EOSINOPHILS % (AUTO) 0.3 % (0.9-2.9); HEMATOCRIT 27.5 % (42.0-54.0); HEMOGLOBIN 9.3 g/dL (13.5-18.0); LYMPHOCYTES # (AUTO) 1.1 X10^3/uL (1.3-2.9); LYMPHOCYTES % (AUTO) 16.2 % (21.0-51.0); MEAN CORPUSCULAR HGB CONC 33.8 g/dL (33.0-35.0); MEAN CORPUSCULAR VOLUME 88.9 fL (80.0-100.0); MEAN PLATELET VOLUME 9.8 fL (7.4-11.0); MONOCYTES # (AUTO) 0.6 x10^3/uL (0.3-0.8); MONOCYTES % (AUTO) 9.1 % (0.0-13.0); NEUTROPHILS % (AUTO) 74.1 % (42.0-75.0); PLATELET COUNT 88 X10^3/uL (150.0-450.0); RED BLOOD COUNT 3.09 X10^6/uL (4.7-6.0); RED CELL DISTRIBUTION WIDTH 15.9 % (11.6-16.5); WHITE BLOOD COUNT 6.8 X10^3/uL (3.6-10.0)
[2020-01-09 06:51] LABS: ALANINE AMINOTRANSFERASE 47 Units/L (12-78); ALBUMIN 2.7 g/dL (3.4-5.0); ALKALINE PHOSPHATASE 87 Units/L (46-116); ASPARTATE AMINO TRANSFERASE 43 Units/L (15-37); BLOOD UREA NITROGEN 11 mg/dL (7-18); CARBON DIOXIDE 27.7 mmol/L (21-32); CHLORIDE 108 mmol/L (98-107); COR NA(FOR HYPERGLY) 143 mmol/L (136-145); CREATININE 0.96 mg/dL (0.70-1.30); SODIUM 143 mmol/L (136-145); TOTAL PROTEIN 5.9 g/dL (6.4-8.2); eGFR NON BLACK RACES > 60 (>60)
[2020-01-09] MEDS: PULMICORT NEB TX 0.5 MG NEB SCH ×2 (08:10→21:00)
[2020-01-09 09:16] LABS: ABG ALLEN TEST POS; ABG BASE EXCESS 2.5 mmol/L (-2.0-2.0); ABG HCO3 26.3 mmol/L (22-26)
[2020-01-09] MEDS: ZYLOPRIM PO SCH (09:23)
[2020-01-09] MEDS: VSL#3 PO SCH (09:23)
[2020-01-09] MEDS: PREDNISONE TAB 20 MG PO SCH (09:24)
[2020-01-09] MEDS: REQUIP PO SCH ×2 (09:24→20:47)
[2020-01-09] MEDS: PriLOSEC PO SCH (09:24)
[2020-01-09] MEDS: K-DUR TAB 20 MEQ PO SCH ×3 (09:25→20:45)
[2020-01-09] MEDS: LYRICA CAP 50 mg PO SCH ×2 (09:25→20:46)
[2020-01-09] MEDS: CARDURA PO SCH (09:30)
[2020-01-09] MEDS: BUPROPION HCL 75 MG PO SCH (09:30)
--- NOTE | 2020-01-09 09:47 | RAD ---
HISTORYCHF, COPDSTUDYCHEST, 1 [id number] trachea is midline. The cardiac silhouette is stable. Right-sided pacer and pacer wires unchanged. Similar residual left-sided pacer wires.. Chronic interstitial markings with no acute focal airspace disease. The bony thorax is unremarkable.IMPRESSIONNo acute cardiopulmonary disease.Electronically signed by: HELIO TAYLOR (Jan 09, 2020 09:46:17)
[2020-01-09] MEDS ORDERED: ZITHROMAX INJ 500 MG VIAL IV ONE (10:51)
[2020-01-09] MEDS ORDERED: NS 250 ML IV 250 ML IV ONE (10:51)
[2020-01-09] MEDS: ZITHROMAX INJ 500 MG VIAL 250 MG in NS 250 ML IV 250 ML IV SCH (10:52)
[2020-01-09 12:09] LABS: CREATINE KINASE 418 Units/L (39-308); TROPONIN I < 0.02 ng/mL (0-1.5)
--- NOTE | 2020-01-09 12:31 | RAD ---
HISTORYFULLNESS IN THROATSTUDYSOFT TISSUE NECKCOMPARISONNoneTECHNIQUETwo-view soft tissue neckFINDINGSPrevertebral soft tissues appear thickened at 25 mm of the level of C6-C7. Multilevel facet arthropathy particularly from C2-3 through C4-5. Lung apices show bilateral interstitial opacities. Right chest wall pacemaker and bilateral pacemaker leads are noted. No radiopaque foreign body.IMPRESSIONPrevertebral soft tissue thickening is nonspecific. Consider CT neck for further evaluation. Interstitial lung opacities likely pulmonary edema but nonspecific.Electronically signed by: Ruy Pierson (Jan 09, 2020 12:29:57)
[2020-01-09] MEDS ORDERED: M.S. CONTIN 15 MG (EXTENDED RELEASE) PO PRN (13:21)
[2020-01-09] MEDS: SOLU-Medrol 40 MG VIAL IVP SCH ×2 (15:24→21:30)
[2020-01-09] MEDS: LASIX IVP SCH (17:00)
[2020-01-09] MEDS: LIPITOR TAB 20 MG PO SCH (20:45)
[2020-01-09] MEDS: PEPCID TAB 20 MG PO SCH (20:46)
[2020-01-09] MEDS: ROCEPHIN VIAL 1 GRAM 1 G in NS 100 ML IV + SPIKE MINIBAG* 100 ML IV SCH (21:30)
[2020-01-10] MEDS: NS 1000 ML 1,000 ML IV SCH ×3 (01:25→23:23)
[2020-01-10] MEDS: DUONEB 0.5 MG/3 MG (3 mL) NEB SCH ×6 (03:58→20:30)
[2020-01-10] MEDS: SOLU-Medrol 40 MG VIAL IVP SCH (05:21)
[2020-01-10 06:59] LABS: BASOPHILS % (AUTO) 0 % (0.2-1.0); HEMATOCRIT 30.3 % (42.0-54.0); HEMOGLOBIN 10.1 g/dL (13.5-18.0); LYMPHOCYTES # (AUTO) 0.8 X10^3/uL (1.3-2.9); LYMPHOCYTES % (AUTO) 11.4 % (21.0-51.0); MEAN CORPUSCULAR HEMOGLOBIN 29.6 pg (27.0-34.0); MEAN CORPUSCULAR HGB CONC 33.4 g/dL (33.0-35.0); MEAN CORPUSCULAR VOLUME 88.5 fL (80.0-100.0); MEAN PLATELET VOLUME 9.4 fL (7.4-11.0); MONOCYTES # (AUTO) 0.2 x10^3/uL (0.3-0.8); MONOCYTES % (AUTO) 3.4 % (0.0-13.0); NEUTROPHILS # (AUTO) 6.2 x10^3/uL (2.2-4.8); NEUTROPHILS % (AUTO) 85.2 % (42.0-75.0); PLATELET COUNT 118 X10^3/uL (150.0-450.0); RED BLOOD COUNT 3.43 X10^6/uL (4.7-6.0); RED CELL DISTRIBUTION WIDTH 16.2 % (11.6-16.5); WHITE BLOOD COUNT 7.3 X10^3/uL (3.6-10.0)
[2020-01-10 07:15] LABS: ALANINE AMINOTRANSFERASE 55 Units/L (12-78); ALKALINE PHOSPHATASE 90 Units/L (46-116); ASPARTATE AMINO TRANSFERASE 41 Units/L (15-37); BLOOD UREA NITROGEN 14 mg/dL (7-18); CALCIUM 8.9 mg/dL (8.5-10.1); CARBON DIOXIDE 28.2 mmol/L (21-32); CHLORIDE 107 mmol/L (98-107); COR CA(FOR HYPOALB) 9.7 mg/dL (8.5-10.1); COR NA(FOR HYPERGLY) 144 mmol/L (136-145); CREATININE 1.01 mg/dL (0.70-1.30); SODIUM 142 mmol/L (136-145); TOTAL PROTEIN 6.4 g/dL (6.4-8.2); eGFR NON BLACK RACES > 60 (>60)
[2020-01-10] MEDS ORDERED: NS 250 ML IV 250 ML IV ONE (08:10)
[2020-01-10] MEDS ORDERED: ZITHROMAX INJ 500 MG VIAL IV ONE (08:10)
[2020-01-10] MEDS: ZITHROMAX INJ 500 MG VIAL 250 MG in NS 250 ML IV 250 ML IV SCH (09:01)
[2020-01-10] MEDS: VSL#3 PO SCH (09:02)
[2020-01-10] MEDS: BUPROPION HCL 75 MG PO SCH (09:02)
[2020-01-10] MEDS: K-DUR TAB 20 MEQ PO SCH (09:03)
[2020-01-10] MEDS: LYRICA CAP 50 mg PO SCH ×2 (09:03→20:43)
[2020-01-10] MEDS: CARDURA PO SCH (09:03)
[2020-01-10] MEDS: PREDNISONE TAB 20 MG PO SCH (09:04)
[2020-01-10] MEDS: PriLOSEC PO SCH (09:04)
[2020-01-10] MEDS: REQUIP PO SCH ×2 (09:04→20:41)
[2020-01-10] MEDS: ZYLOPRIM PO SCH (09:05)
[2020-01-10] MEDS: LASIX IVP SCH (09:08)
[2020-01-10] MEDS ORDERED: HALLS COUGH DROPS MT PRN (09:31)
[2020-01-10] MEDS: PULMICORT NEB TX 0.5 MG NEB SCH ×2 (09:45→20:30)
[2020-01-10] MEDS: PROTONIX INJ 40 MG VIAL IVP SCH ×2 (10:56→20:46)
[2020-01-10] MEDS: ROBITUSSIN DM PO SCH ×3 (15:49→20:43)
[2020-01-10] MEDS: LIPITOR TAB 20 MG PO SCH (20:41)
[2020-01-10] MEDS: PEPCID TAB 20 MG PO SCH (20:45)
[2020-01-10] MEDS: ROCEPHIN VIAL 1 GRAM 1 G in NS 100 ML IV + SPIKE MINIBAG* 100 ML IV SCH (22:07)
[2020-01-11] MEDS: DUONEB 0.5 MG/3 MG (3 mL) NEB SCH ×3 (02:51→09:30)
[2020-01-11] MEDS: NS 1000 ML 1,000 ML IV SCH (05:16)
--- NOTE | 2020-01-11 06:10 | RAD ---
HISTORYSOBSTUDYCHEST, 1 [id number] trachea is midline. The cardiac silhouette is stable. Right chest wall cardiac pacer and left chest wall pacer leads again seen. Hazy opacity at the left lung base.. The bony thorax is unremarkable.IMPRESSIONHazy opacity at the left lung base, concerning for infiltrate. Follow-up is recommended.Electronically signed by: Carol Valenzuela (Jan 11, 2020 06:08:48)
[2020-01-11 06:16] LABS: BASOPHILS % (AUTO) 0.1 % (0.2-1.0); EOSINOPHILS % (AUTO) 0.2 % (0.9-2.9); HEMATOCRIT 30.1 % (42.0-54.0); HEMOGLOBIN 10.2 g/dL (13.5-18.0); LYMPHOCYTES # (AUTO) 1.9 X10^3/uL (1.3-2.9); LYMPHOCYTES % (AUTO) 17.7 % (21.0-51.0); MEAN CORPUSCULAR HEMOGLOBIN 29.9 pg (27.0-34.0); MEAN CORPUSCULAR HGB CONC 34.1 g/dL (33.0-35.0); MEAN CORPUSCULAR VOLUME 87.7 fL (80.0-100.0); MEAN PLATELET VOLUME 9.3 fL (7.4-11.0); MONOCYTES # (AUTO) 0.7 x10^3/uL (0.3-0.8); MONOCYTES % (AUTO) 6.8 % (0.0-13.0); NEUTROPHILS # (AUTO) 8.2 x10^3/uL (2.2-4.8); NEUTROPHILS % (AUTO) 75.2 % (42.0-75.0); PLATELET COUNT 127 X10^3/uL (150.0-450.0); RED BLOOD COUNT 3.43 X10^6/uL (4.7-6.0); RED CELL DISTRIBUTION WIDTH 15.5 % (11.6-16.5); WHITE BLOOD COUNT 10.9 X10^3/uL (3.6-10.0)
[2020-01-11 06:31] LABS: ALANINE AMINOTRANSFERASE 50 Units/L (12-78); ALBUMIN 2.9 g/dL (3.4-5.0); ALKALINE PHOSPHATASE 81 Units/L (46-116); ASPARTATE AMINO TRANSFERASE 34 Units/L (15-37); BLOOD UREA NITROGEN 19 mg/dL (7-18); CALCIUM 8.8 mg/dL (8.5-10.1); CHLORIDE 106 mmol/L (98-107); COR CA(FOR HYPOALB) 9.7 mg/dL (8.5-10.1); CREATININE 1.18 mg/dL (0.70-1.30); SODIUM 141 mmol/L (136-145); TOTAL PROTEIN 6.1 g/dL (6.4-8.2); eGFR NON BLACK RACES > 60 (>60)
[2020-01-11 08:09] VITALS: BP 150/62
[2020-01-11] MEDS ORDERED: LEVAQUIN PREMIX IV 500 MG 500 MG/100 ML BAG IV SCH (09:00)
[2020-01-11] MEDS: PULMICORT NEB TX 0.5 MG NEB SCH (09:30)
[2020-01-11] MEDS ORDERED: TUSSIONEX PENNKINETIC SUSP ONE (09:54)
[2020-01-11] MEDS ORDERED: ZITHROMAX INJ 500 MG VIAL IV ONE (09:55)
[2020-01-11] MEDS ORDERED: NS 250 ML IV 250 ML IV ONE (09:55)
[2020-01-11] MEDS: TUSSIONEX PENNKINETIC SUSP PO ONE ×2 (09:58→10:00)
[2020-01-11] MEDS: K-DUR TAB 20 MEQ PO SCH (09:59)
[2020-01-11] MEDS: LYRICA CAP 50 mg PO SCH (09:59)
[2020-01-11] MEDS: CARDURA PO SCH (09:59)
[2020-01-11] MEDS: PREDNISONE TAB 20 MG PO SCH (10:00)
[2020-01-11] MEDS: ZYLOPRIM PO SCH (10:00)
[2020-01-11] MEDS: REQUIP PO SCH (10:01)
[2020-01-11] MEDS: VSL#3 PO SCH (10:01)
[2020-01-11] MEDS: PROTONIX INJ 40 MG VIAL IVP SCH (10:01)
[2020-01-11] MEDS: BUPROPION HCL 75 MG PO SCH (10:26)
[2020-01-11] MEDS: ZITHROMAX INJ 500 MG VIAL 250 MG in NS 250 ML IV 250 ML IV SCH (13:16)
== END 2020-01-11 12:00 | disposition home health service (06) | DRG 194 ==
LOC: ER 17:19 → MED/SURG 20:45
PROVIDERS: ADMIT Family Medicine; ATTEND Internal Medicine
DX: R13.10 Dysphagia, unspecified; Z11.59 Encounter for screening for other viral diseases; I10 Essential (primary) hypertension; E11.8 Type 2 diabetes mellitus with unspecified complications; G25.81 Restless legs syndrome; N17.9 Acute kidney failure, unspecified; M51.36 Other intervertebral disc degeneration, lumbar region; J44.1 Chronic obstructive pulmonary disease with (acute) exacerbation; R50.9 Fever, unspecified; E87.6 Hypokalemia; M06.9 Rheumatoid arthritis, unspecified; I50.9 Heart failure, unspecified; Z95.0 Presence of cardiac pacemaker; J18.9 Pneumonia, unspecified organism; R41.82 Altered mental status, unspecified; R26.81 Unsteadiness on feet

== ENCOUNTER 2020-02-09 12:45 | Inpatient (IN) ==
--- NOTE | 2020-02-09 13:16 | DR.AMS ---
HPI Time Seen Time Seen by Provider: 02/09/20 13:16 HPI Comment HPI Comment: PATIENT IS 84YR OLD MALE WITH HISTORY OF HYPERTENSION, DM, CAD AND COPD WAS FOUND ON THE FLOOR AT HIS HOME CONFUSE WITH ELEVATED TEMPERATURE. HAVE 7/10 KNEE PAIN GOING DOWN LEGS. HE IS SLIGHTLY CONFUSE. NO VOMITING OR DIARRHEA. Complaint Cheif Complaint Doctors Comments: FOUND ON FLOOR AT HOME CONFUSED WITH ELEVATED TEMP. Chief Complaint:: PT WAS FOUND ON FLOOR AT HOME WITHOUT O2 BY FAMILY MEMBERS. O2 WAS 80% AT HOME. PLACED BACK ON 02 4L AND UP TO 98%. PT HAD TEMP PER CALLER 101.8 AND WAS CONFUSED COVID-19 Coronavirus risk:travel/contact w/high risk person: No Has patient experienced Coronavirus symptoms: Yes Coronavirus symptoms experienced: Fever Reviewed Nurses Notes Reviewed: Yes Source History Provided: Patient, Family Member and EMS Mode of Arrival Mode of Arrival: EMS Timing Onset of Chief Complaint: 02/09/20 Came On: Suddenly Symptoms: Improving Symptom Onset: Known Onset of Symptoms Start Date: 02/09/20 Onset of Symptoms Start Time: 12:59 Duration Duration: Constant Duration: Hours Quality Quality: Change in Behavior and Confusion Severity Severity: Moderate Context Recent: Fever History Of: None Associated Signs and Symptoms Associated Signs and Symptoms: Change in Behavior and Confusion PMH PMH Past Medical History: Yes Past Medical History: Anxiety, Arthritis, COPD, Coronary Artery Disease, Diabetes, GERD, Gout, Hypertension and PUD Past Surgical History: Yes Surgical History: Tonsillectomy Family History History of Family Medical Conditions: Yes Family Medical History: Diabetes Mellitus and Cancer Social History Does any household member use tobacco: No Alcohol Use: None Do you use any recreational Drugs:: No Lives With: Family Lives Where: Home Travel Risk Coronavirus risk:travel/contact w/high risk person: No Has patient experienced Coronavirus symptoms: Yes Coronavirus symptoms experienced: Fever Infectious screening In the last 2 months have you had wt loss of >10#?: NO Have you had fever, night sweats or hemotysis?: No Have you traveled outside the country in the last 6 months?: No Isolation: Standard ROS Review of Systems Constitutional: See HPI, Fever, Weakness and Fatigue Eyes: No Symptoms Reported and See HPI; negative Blurred Vision and Diplopia ENTM: No Symptoms Reported and See HPI; negative Nose Discharge and Nose David estion Respiratoy: See HPI and Short of Breath (ON EXERTION); negative Moist Cough and Wheezing Cardiovascular: See HPI and Syncope; negative Chest Pain Gastrointestinal/Abdominal: No Symptoms Reported and See HPI; negative Abdominal Pain, Diarrhea and Vomiting Genitourinary: No Symptoms Reported and See HPI; negative Dysuria and Hematuria Neurological: See HPI and Weakness; negative Headache and Dizziness Musculoskeletal: See HPI, Muscle Pain and Knee (PAIN AND SWELLING KNEES.); negative Back Pain Integumentary: No Symptoms Reported and See HPI; negative Change in Color and Rash Hematologic/Lymphatic: No Symptoms Reported and See HPI; negative Easy Bruising and Swollen Glands Endocrine: No Symptoms Reported and See HPI; negative Increased Thirst and Increased Urine Psychiatric: No Symptoms Reported and See HPI All Other Systems: Reviewed and Negative Unable to Obtain Due To: Altered mental status PE Vitals Vital Signs: Temp Pulse Pulse Resp BP BP BP 02/11/20 09:02 72 02/11/20 08:00 97.5 F L 72 18 131/62 02/11/20 06:24 20 02/11/20 05:24 20 02/11/20 03:55 98.0 F 90 20 139/69 02/11/20 03:39 20 02/11/20 02:39 19 02/10/20 23:51 98.4 F 77 20 140/69 02/10/20 20:20 88 02/10/20 20:00 98.0 F 75 20 134/59 02/10/20 16:52 18 02/10/20 16:00 98.0 F 76 20 116/60 02/10/20 15:52 18 02/10/20 12:00 98.6 F 90 20 125/60 02/10/20 10:13 18 02/10/20 09:13 20 02/10/20 08:14 78 02/10/20 08:00 99.2 F 78 22 109/54 02/10/20 06:31 77 02/10/20 04:00 98.9 F 76 18 113/53 02/10/20 00:24 72 02/10/20 00:00 100.1 F H 76 14 125/58 02/09/20 21:00 76 02/09/20 20:00 99.4 F 72 18 135/61 02/09/20 19:49 99.4 F 72 18 135/61 02/09/20 18:13 22 154/66 02/09/20 17:52 22 02/09/20 17:50 99.2 F 88 22 165/69 02/09/20 17:01 84 154/66 02/09/20 17:00 81 02/09/20 16:45 79 02/09/20 16:30 79 113/54 02/09/20 16:15 81 02/09/20 16:00 80 129/60 02/09/20 15:45 86 02/09/20 15:30 87 133/63 02/09/20 15:15 82 02/09/20 15:00 114/55 02/09/20 14:30 84 125/57 02/09/20 14:01 143/59 02/09/20 13:45 97 H 02/09/20 13:36 02/09/20 13:31 178/84 02/09/20 13:28 02/09/20 13:15 93 H 02/09/20 13:01 96 H 142/65 02/09/20 13:00 96 H 02/09/20 12:58 98 H 02/09/20 12:52 100.8 F H 80 24 142/80 01/11/20 08:00 150/62 Pulse Ox 02/11/20 09:02 98 02/11/20 08:00 97 02/11/20 06:24 02/11/20 05:24 02/11/20 03:55 96 02/11/20 03:39 02/11/20 02:39 02/10/20 23:51 97 02/10/20 20:20 98 02/10/20 20:00 98 02/10/20 16:52 02/10/20 16:00 97 02/10/20 15:52 02/10/20 12:00 96 02/10/20 10:13 02/10/20 09:13 02/10/20 08:14 95 02/10/20 08:00 94 L 02/10/20 06:31 96 02/10/20 04:00 95 02/10/20 00:24 98 02/10/20 00:00 98 02/09/20 21:00 98 02/09/20 20:00 100 02/09/20 19:49 100 02/09/20 18:13 99 02/09/20 17:52 99 02/09/20 17:50 98 02/09/20 17:01 96 02/09/20 17:00 96 02/09/20 16:45 90 L 02/09/20 16:30 90 L 02/09/20 16:15 89 L 02/09/20 16:00 93 L 02/09/20 15:45 95 02/09/20 15:30 95 02/09/20 15:15 90 L 02/09/20 15:00 02/09/20 14:30 89 L 02/09/20 14:01 02/09/20 13:45 94 L 02/09/20 13:36 76 L 02/09/20 13:31 02/09/20 13:28 100 02/09/20 13:15 95 02/09/20 13:01 95 02/09/20 13:00 95 02/09/20 12:58 93 L 02/09/20 12:52 94 L 01/11/20 08:00 General Limitations: Altered Mental Status General Appearance: Alert and In No Apparent Distress Head Head Exam: Normal Inspection and Atraumatic Head Exam Physical: Other (NONE NOTED.) Eyes Eye exam: Normal Appearance and PERRL; negative Scleral Icterus and Conjunctival Injection Pupils: Regular, Round: Bilateral and Reactive: Bilateral ENT ENT Exam: Normal Exam, Normal Oropharynx, Normal External Ear Exam and TM's Normal Bilaterally External Ear Exam: Normal External Inspection; negative Mastoid Tenderness TM/Canal Exam: Bilateral: Normal Nose Exam: Normal Nose Exam Mouth Exam: Normal Inspection; negative Lip Swelling and Tongue Swelling Throat Exam: Normal Inspection; negative Tonsillar Erythema, Tonsillomegaly and Tonsillar Exudate Neck Neck Exam: Normal Inspection and Trachea Midline; negative Tenderness and Lymphadenopathy Chest Chest Inspection: Normal Inspection and Symmetric Chest Wall Rise; negative Tenderness Respiratory Respiratory Exam: Normal Lung Sounds Bilat; negative Accessory Muscle Use, Chest Wall Tenderness and Respiratory Distress Respiratory Exam: Bilateral: Rhonchi and Lower: Rhonchi Cardiovascular Cardiovascular Exam: Regular Rate and Normal Rhythm Abdominal Exam Abdominal Exam: Normal Inspection, Normal Bowel Sounds and Soft; negative Tenderness Extremities Extremities Exam: Normal Inspection and Normal Capillary Refill; negative Tenderness, Edema and Calf Tenderness Back Back Exam: Normal Inspection; negative (R) CVA Tenderness, (L) CVA Tenderness and Paraspinal Tenderness Neurological Neurological Exam: Alert and Oriented X3; negative Motor Sensory Deficit Patient Oriented To: Person and Place; negative Time Speech: Fluid Speech Cranial Nerve Exam: EOM Function (II, III, IV, ): Normal, Facial Sensation (V): Normal, Facial Palsy (VII): Normal and Gag reflex (XI): Normal Motor Strength - LUE: 5/5 Motor Strength - RUE: 5/5 Motor Strength - LLE: 5/5 Motor Strength - RLE: 5/5 Upper Motor Neuron Exam: Babinski Sign: Normal Psychological Psychiatric Exam: Flat Affect Expanded Psychiatric Exam: Poor Eye Contact Skin Skin Exam: Warm, Dry, Intact and Normal Color MDM Additional Information Obtained Additional Information Obtained From: Old Records Differential Diagnosis Metabolic: Dehydration, Hypercalcemia, Hypernatremia, Hypoglycemia and Hyponatremia Structural: Closed Head Injury Infectious: Sepsis and UTI COURSE Treatment Treatment: SEE ORDERS. Consultation Consultation Comments: DISCUSSED PATIENT WITH DR. CUNNINGHAM. HE WILL ADMIT PATIENT. Education/Counseling Education/Counseling: Patient Educated On: Diagnosis and Needs for Follow Up ROR Labs Reviewed Laboratory Results Reviewed?: Yes Result Diagrams: 02/17/20 05:20 02/17/20 05:20 Laboratory: 02/09/20 13:55 Blood Blood Culture - Final 02/09/20 14:27 Blood Blood Culture - Final 02/09/20 18:15 Sputum - Expectorated Sputum Sputum Culture - Final 02/09/20 18:15 Sputum - Expectorated Sputum - Final 02/09/20 17:43 Urine,Clean Catch Urine Culture - Final WBC 5.5 X10^3/uL (3.6-10.0) 02/11/20 05:45 RBC 3.41 X10^6/uL (4.7-6.0) L 02/11/20 05:45 Hgb 10.2 g/dL (13.5-18.0) L 02/11/20 05:45 Hct 30.6 % (42.0-54.0) L 02/11/20 05:45 MCV 89.9 fL (80.0-100.0) 02/11/20 05:45 MCH 30.0 pg (27.0-34.0) 02/11/20 05:45 MCHC 33.4 g/dL (33.0-35.0) 02/11/20 05:45 RDW 15.4 % (11.6-16.5) 02/11/20 05:45 Plt Count 75 X10^3/uL (150.0-450.0) L 02/11/20 05:45 Plt Count Comment Decreased (ADEQUATE) 02/11/20 05:45 MPV 10.7 fL (7.4-11.0) 02/11/20 05:45 Neut % (Auto) 90.9 % (42.0-75.0) H 02/11/20 05:45 Lymph % (Auto) 7.1 % (21.0-51.0) L 02/11/20 05:45 [place] % (Auto) 2.0 % (0.0-13.0) 02/11/20 05:45 Eos % (Auto) 0.0 % (0.9-2.9) L 02/11/20 05:45 Baso % (Auto) 0 % (0.2-1.0) L 02/11/20 05:45 Neut # (Auto) 5.0 x10^3/uL (2.2-4.8) H 02/11/20 05:45 Lymph # (Auto) 0.4 X10^3/uL (1.3-2.9) L 02/11/20 05:45 [place] # (Auto) 0.1 x10^3/uL (0.3-0.8) L 02/11/20 05:45 Eos # (Auto) 0.0 x10^3/uL (0.0-0.2) 02/11/20 05:45 Baso # (Auto) 0.0 X10^3/uL (0.0-0.1) 02/11/20 05:45 Absolute Nucleated RBC 0.1 /100WBC 02/11/20 05:45 Total Counted 100 02/11/20 05:45 Neutrophils % (Manual) 88 % (39-76) H 02/11/20 05:45 Band Neutrophils % 4 % (0-10) 02/11/20 05:45 Lymphocytes % (Manual) 7 % (13-43) L 02/11/20 05:45 Monocytes % (Manual) 1 % (4-9) L 02/11/20 05:45 Plt Morphology Comment Normal (NORMAL) 02/11/20 05:45 RBC Morphology Normal (NORMAL) 02/11/20 05:45 Sodium 139 mmol/L (136-145) 02/11/20 05:45 Corrected Sodium 141 mmol/L (136-145) 02/11/20 05:45 Potassium 4.4 mmol/L (3.5-5.1) 02/11/20 05:45 Chloride 105 mmol/L (98-107) 02/11/20 05:45 Carbon Dioxide 27.7 mmol/L (21-32) 02/11/20 05:45 BUN 13 mg/dL (7-18) 02/11/20 05:45 Creatinine 1.08 mg/dL (0.70-1.30) 02/11/20 05:45 Est GFR (MDRD) Af Amer > 60 (>60) 02/11/20 05:45 Est GFR (MDRD) Non-Af > 60 (>60) 02/11/20 05:45 Glucose 199 mg/dL (65-99) H 02/11/20 05:45 POC Glucose (mg/dL) 150 mg/dL (65-99) H 02/11/20 11:25 Lactic Acid 0.9 mmol/L (0.4-2.0) 02/09/20 13:55 Calcium 9.1 mg/dL (8.5-10.1) 02/11/20 05:45 Corrected Calcium 10.1 mg/dL (8.5-10.1) 02/11/20 05:45 Magnesium 1.7 mg/dL (1.7-2.9) 02/11/20 05:45 Iron 12 ug/dL (50-175) L 02/10/20 05:30 Transferrin 177 mg/dL (202-364) L 02/10/20 05:30 Ferritin 180 ng/mL (26-388) 02/10/20 05:30 Total Bilirubin 0.50 mg/dL (0.2-1.0) 02/11/20 05:45 AST 21 Units/L (15-37) 02/11/20 05:45 ALT 21 Units/L (12-78) 02/11/20 05:45 Alkaline Phosphatase 61 Units/L (46-116) 02/11/20 05:45 Creatine Kinase 91 Units/L (39-308) 02/10/20 01:06 CK-MB (CK-2) 1.1 ng/mL (0-4.0) 02/10/20 01:06 CK/CKMB % Calc 1.2 % (<4) 02/10/20 01:06 Troponin I < 0.02 ng/mL (0-1.5) 02/10/20 01:06 C-Reactive Protein 68.60 mg/L (0-3.0) H 02/09/20 13:55 Total Protein 6.3 g/dL (6.4-8.2) L 02/11/20 05:45 Albumin 2.8 g/dL (3.4-5.0) L 02/11/20 05:45 Globulin 3.5 g/dL (2.5-4.5) 02/11/20 05:45 Albumin/Globulin Ratio 0.8 Ratio (1.1-2.1) L 02/11/20 05:45 Vitamin B12 540 pg/mL (193-986) 02/10/20 05:30 Folate > 20.0 ng/mL (>8.6) 02/10/20 05:30 Specimen Type Clean catch urine 02/09/20 17:43 Urine Color Yellow (YELLOW) 02/09/20 17:43 Urine Appearance Clear (CLEAR) 02/09/20 17:43 Urine pH 8.0 (5.0 - 8.0) 02/09/20 17:43 Ur Specific [place] 1.010 (1.000-1.030) 02/09/20 17:43 Urine Protein Negative (NEGATIVE) 02/09/20 17:43 Urine Glucose (UA) Negative (NEGATIVE) 02/09/20 17:43 Urine Ketones Negative (NEGATIVE) 02/09/20 17:43 Urine Occult Blood Negative (NEGATIVE) 02/09/20 17:43 Urine Nitrite Negative (NEGATIVE) 02/09/20 17:43 Urine Bilirubin Negative (NEGATIVE) 02/09/20 17:43 Urine Urobilinogen 1+ (NORMAL) 02/09/20 17:43 Ur Leukocyte Esterase Negative (NEGATIVE) 02/09/20 17:43 Urine RBC None seen /HPF (0-3) 02/09/20 17:43 Urine WBC None seen /HPF (0-5) 02/09/20 17:43 Ur Squamous Epith Cells Negative /HPF (NEGATIVE) 02/09/20 17:43 Urine Bacteria Negative /HPF (NEGATIVE) 02/09/20 17:43 Ur Culture Indicated? No/not indicated 02/09/20 17:43 SARS-CoV-2 (PCR) Negative (NEGATIVE) 02/09/20 15:30 Opioid Opioid Risk Tool Age (Ciaran box if 16-45): No History of Preadolescent Sexual Abuse: No Total: 0 Total Score Risk Category: Low Risk Copyright: Pepe RAI predicting aberrant behaviors Diagnosis Discharge Problem: Pleural effusion Pneumonia Qualifiers: Pneumonia type: due to unspecified organism Laterality: right Lung location: middle lobe of lung Qualified Code(s): J18.9 - Pneumonia, unspecified organism Fall Qualifiers: Encounter type: initial encounter Qualified Code(s): W19.XXXA - Unspecified fal l, initial encounter Instructions Instructions: Shortness of Breath, Adult, [id number] Home Oxygen Use, Adult Rehydration, Adult Type 2 Diabetes Mellitus, Self Care, Adult, [id number] Chronic Obstructive Pulmonary Disease Exacerbation, [id number] How to Use a Nebulizer, Adult Pleural Effusion Heart Failure, [id number] Community-Acquired Pneumonia, Adult Forms: Excuse From Work or School Precautions for COVID19 Patient Portal Social Distancing
[2020-02-09 14:07] LABS: BASOPHILS % (AUTO) 0.3 % (0.2-1.0); EOSINOPHILS % (AUTO) 0.4 % (0.9-2.9); HEMATOCRIT 33.1 % (42.0-54.0); HEMOGLOBIN 11.1 g/dL (13.5-18.0); LYMPHOCYTES # (AUTO) 0.9 X10^3/uL (1.3-2.9); LYMPHOCYTES % (AUTO) 9.2 % (21.0-51.0); MEAN CORPUSCULAR HGB CONC 33.6 g/dL (33.0-35.0); MEAN CORPUSCULAR VOLUME 89.3 fL (80.0-100.0); MEAN PLATELET VOLUME 9.5 fL (7.4-11.0); MONOCYTES # (AUTO) 0.8 x10^3/uL (0.3-0.8); MONOCYTES % (AUTO) 7.5 % (0.0-13.0); NEUTROPHILS # (AUTO) 8.5 x10^3/uL (2.2-4.8); NEUTROPHILS % (AUTO) 82.6 % (42.0-75.0); PLATELET COUNT 87 X10^3/uL (150.0-450.0); RED BLOOD COUNT 3.71 X10^6/uL (4.7-6.0); RED CELL DISTRIBUTION WIDTH 15.6 % (11.6-16.5); WHITE BLOOD COUNT 10.3 X10^3/uL (3.6-10.0)
--- NOTE | 2020-02-09 14:22 | RAD ---
HISTORYaltered mental status elevated tempSTUDYCHEST x-ray, 1 VIEWCOMPARISONX-ray 12/1919FINDINGSCardiac device leads are unchanged in position. Old fractured left-sided cardiac leads are seen, unchanged. Heart is normal in size. Moderate left pleural effusion appears smaller than prior study. Likely mild atelectasis in the left lingula is similar to prior study. This could possibly be mild pneumonia. Right lung is clear. No pneumothorax is seen.IMPRESSIONImproving left pleural effusion but it remains moderate in size.Persistent left lingular density is probably atelectasis but mild pneumonia is not excluded.Electronically signed by: Colby Hasuer (Feb 09, 2020 14:22:04)
[2020-02-09 14:24] LABS: BLOOD UREA NITROGEN 15 mg/dL (7-18); CALCIUM 8.6 mg/dL (8.5-10.1); CARBON DIOXIDE 33.6 mmol/L (21-32); CHLORIDE 104 mmol/L (98-107); COR NA(FOR HYPERGLY) 143 mmol/L (136-145); CREATININE 1.19 mg/dL (0.70-1.30); SODIUM 142 mmol/L (136-145); TROPONIN I < 0.02 ng/mL (0-1.5); eGFR NON BLACK RACES > 60 (>60)
[2020-02-09 14:26] LABS: LACTIC ACID 0.9 mmol/L (0.4-2.0)
--- NOTE | 2020-02-09 14:26 | CT ---
HISTORYaltered mental status elevated tempSTUDYCT brain without IV contrastCOMPARISONCT 07/29/2019TECHNIQUEMultiple axial images of the brain were obtained without IV contrast. Dose reduction techniques including Automated Exposure Control (AEC) and adjustment of mA and kV were utilized.FINDINGSChronic mild opacification of the left mastoid air cells is seen without coalescence. Motion slightly limits the study. No calvarial fracture is seen. No acute intracranial hemorrhage or mass effect is seen. The cerebral ventricles are normal in size. No evidence of acute CVA. Prominent diffuse volume loss in the brain is similar to prior study. Idiopathic calcifications are seen in the basal ganglia. Mild chronic small vessel ischemic changes in the white matter are similar to prior study.IMPRESSIONNo acute intracranial abnormalities are seen. Prominent diffuse volume loss is seen in the brain.Electronically signed by: Colby Hauser (Feb 09, 2020 14:26:20)
[2020-02-09 14:29] LABS: ALANINE AMINOTRANSFERASE 25 Units/L (12-78); ALBUMIN 3.2 g/dL (3.4-5.0); ALKALINE PHOSPHATASE 65 Units/L (46-116); ASPARTATE AMINO TRANSFERASE 21 Units/L (15-37); CKMB % 1.2 % (<4); COR CA(FOR HYPOALB) 9.2 mg/dL (8.5-10.1); CREATINE KINASE 83 Units/L (39-308); CREATINE KINASE MB < 1.0 ng/mL (0-4.0); TOTAL PROTEIN 6.3 g/dL (6.4-8.2)
[2020-02-09] MEDS ORDERED: TUSSIONEX PENNKINETIC SUSP PO PRN (18:26)
[2020-02-09 18:47] LABS: APPEARANCE,URINE CLEAR (CLEAR); BILIRUBIN,URINE NEGATIVE (NEGATIVE); BLOOD/HEMOGLOBIN,URINE NEGATIVE (NEGATIVE); COLOR,URINE YELLOW (YELLOW); GLUCOSE, URINE NEGATIVE (NEGATIVE); KETONES,URINE NEGATIVE (NEGATIVE); LEUKOCYTE ESTERASE ,URINE NEGATIVE (NEGATIVE); NITRITES,URINE NEGATIVE (NEGATIVE); PROTEIN,URINE NEGATIVE (NEGATIVE); UROBILINOGEN,URINE 1+ (NORMAL)
[2020-02-09] MEDS ORDERED: NS 1/2 1000 ML IV 1,000 ML IV ONE (18:53)
[2020-02-09 18:54] LABS: BACTERIA,URINE NEGATIVE /HPF (NEGATIVE); RBC,URINE NONE SEEN /HPF (0-3); SQUAMOUS EPITHELIAL CELL,UR NEGATIVE /HPF (NEGATIVE)
[2020-02-09] MEDS: NS 1/2 1000 ML IV 1,000 ML IV SCH (18:59)
[2020-02-09] MEDS: ROCEPHIN VIAL 1 GRAM 1 G in NS 100 ML IV + SPIKE MINIBAG* 100 ML IV SCH (19:00)
[2020-02-09 19:32] LABS: CKMB % 1.3 % (<4); CREATINE KINASE 78 Units/L (39-308); CREATINE KINASE MB < 1.0 ng/mL (0-4.0); TROPONIN I < 0.02 ng/mL (0-1.5)
[2020-02-09] MEDS: DUONEB 0.5 MG/3 MG (3 mL) NEB SCH (21:00)
[2020-02-09] MEDS: PULMICORT NEB TX 0.5 MG NEB SCH (21:00)
[2020-02-09] MEDS: ROBITUSSIN DM PO SCH (21:00)
[2020-02-09] MEDS: VIBRAMYCIN 100 MG in NS 100 ML IV + SPIKE MINIBAG* 100 ML IV SCH (21:01)
[2020-02-10] MEDS: DUONEB 0.5 MG/3 MG (3 mL) NEB SCH ×6 (00:24→20:20)
[2020-02-10 01:52] LABS: CKMB % 1.2 % (<4); CREATINE KINASE 91 Units/L (39-308); CREATINE KINASE MB 1.1 ng/mL (0-4.0); TROPONIN I < 0.02 ng/mL (0-1.5)
[2020-02-10 06:15] LABS: BASOPHILS % (AUTO) 0.2 % (0.2-1.0); EOSINOPHILS # (AUTO) 0.1 x10^3/uL (0.0-0.2); EOSINOPHILS % (AUTO) 0.7 % (0.9-2.9); HEMATOCRIT 28.8 % (42.0-54.0); HEMOGLOBIN 9.7 g/dL (13.5-18.0); LYMPHOCYTES # (AUTO) 1.2 X10^3/uL (1.3-2.9); LYMPHOCYTES % (AUTO) 14.1 % (21.0-51.0); MEAN CORPUSCULAR HEMOGLOBIN 30.1 pg (27.0-34.0); MEAN CORPUSCULAR HGB CONC 33.9 g/dL (33.0-35.0); MEAN PLATELET VOLUME 9.7 fL (7.4-11.0); MONOCYTES # (AUTO) 0.8 x10^3/uL (0.3-0.8); MONOCYTES % (AUTO) 9.3 % (0.0-13.0); NEUTROPHILS # (AUTO) 6.5 x10^3/uL (2.2-4.8); NEUTROPHILS % (AUTO) 75.7 % (42.0-75.0); PLATELET COUNT 75 X10^3/uL (150.0-450.0); RED BLOOD COUNT 3.23 X10^6/uL (4.7-6.0); RED CELL DISTRIBUTION WIDTH 15.4 % (11.6-16.5); WHITE BLOOD COUNT 8.6 X10^3/uL (3.6-10.0)
[2020-02-10 06:19] LABS: ALANINE AMINOTRANSFERASE 22 Units/L (12-78); ALBUMIN 2.7 g/dL (3.4-5.0); ALKALINE PHOSPHATASE 55 Units/L (46-116); ASPARTATE AMINO TRANSFERASE 21 Units/L (15-37); BLOOD UREA NITROGEN 15 mg/dL (7-18); CALCIUM 8.6 mg/dL (8.5-10.1); CARBON DIOXIDE 29.9 mmol/L (21-32); CHLORIDE 104 mmol/L (98-107); COR CA(FOR HYPOALB) 9.6 mg/dL (8.5-10.1); COR NA(FOR HYPERGLY) 142 mmol/L (136-145); CREATININE 0.95 mg/dL (0.70-1.30); SODIUM 141 mmol/L (136-145); TOTAL PROTEIN 5.7 g/dL (6.4-8.2); eGFR NON BLACK RACES > 60 (>60)
[2020-02-10] MEDS ORDERED: KLOR-CON PO PRN (06:30)
[2020-02-10] MEDS ORDERED: MICRO K EXTEN CAP 10 MEQ PO PRN (06:30)
[2020-02-10] MEDS ORDERED: POTASSIUM CHL 40 MEQ/NS 0.45% 500 ML IV PRN (06:30)
[2020-02-10] MEDS ORDERED: K-RIDER 10 MEQ/NS 100 ML 10 MEQ/100 ML BAG IV PRN (06:30)
[2020-02-10] MEDS ORDERED: K-DUR TAB 20 MEQ PO PRN (06:30)
[2020-02-10] MEDS ORDERED: POTASSIUM CHL 60 MEQ/NS 0.45% 500 ML IV PRN (06:30)
[2020-02-10] MEDS ORDERED: POTASSIUM CHLORIDE LIQ 20 MEQ UDC PO PRN (06:30)
[2020-02-10] MEDS: PULMICORT NEB TX 0.5 MG NEB SCH ×2 (08:14→20:20)
[2020-02-10 09:08] LABS: IRON 12 ug/dL (50-175)
[2020-02-10] MEDS: M.S. CONTIN 15 MG (EXTENDED RELEASE) PO PRN (09:13)
[2020-02-10] MEDS: REQUIP PO SCH ×3 (09:13→20:28)
[2020-02-10 09:22] VITALS: BMI 29.2
[2020-02-10] MEDS: CARDURA PO SCH (10:10)
[2020-02-10] MEDS: ZYLOPRIM PO SCH (10:10)
[2020-02-10] MEDS: ROBITUSSIN DM PO SCH ×4 (10:10→20:28)
[2020-02-10] MEDS: VSL#3 PO SCH (10:11)
[2020-02-10] MEDS: VIBRAMYCIN 100 MG in NS 100 ML IV + SPIKE MINIBAG* 100 ML IV SCH ×2 (10:11→20:28)
[2020-02-10] MEDS: ZINC SULFATE PO SCH (10:11)
[2020-02-10] MEDS: PROTONIX INJ 40 MG VIAL IVP SCH (10:12)
[2020-02-10] MEDS: SOLU-Medrol 40 MG VIAL IVP SCH ×3 (10:12→21:42)
[2020-02-10] MEDS: ROCEPHIN VIAL 1 GRAM 1 G in NS 100 ML IV + SPIKE MINIBAG* 100 ML IV SCH (10:12)
[2020-02-10] MEDS: LYRICA CAP 150 mg PO SCH ×2 (10:13→20:27)
[2020-02-10] MEDS ORDERED: NS 1/2 1000 ML IV 1,000 ML IV ONE (10:14)
[2020-02-10] MEDS: NS 1/2 1000 ML IV 1,000 ML IV SCH ×2 (10:15→23:21)
[2020-02-10] MEDS: NORCO 10/325 TAB PO PRN (15:52)
--- NOTE | 2020-02-10 17:19 | DR.H&P ---
H&P - History & Physical for Day of: H&P Date: 02/09/20 - Chief Complaint Chief Complaint: FALL, WEAKNESS, INCREASED SOB - History of Present Illness History of Present Illness: PT IS 84 WM ER ADMISSION WITH CO WEAKNESS, INCREASED SOB WITH COPD AND FALL THIS AFTERNOON. PT HAS MULTIPLE CHRONIC MEDICAL PROBLEMS INCLUDING CHF, CAD, COPD, HTN, OA, RA, DM, RLS AND GOUT. PT STATES HE HAD A "GENTLE FALL" ON KNEES PRIOR TO ER VISIT, DENIES ANY CHEST PAIN OR FLU LIKE SYMPTOMS, DENIES ANY LOC. PT HAD LOW O2 SAT ON EMS ARRIVAL. PT HAD PNEUMONIA ON CXR, FEBRILE ILLNESS AND NEGATIVE COVID. PT ADMITTED FOR TREATMENT OF ACUTE ILLNESS. - Past Medical History Past Medical History: Coronary Artery Disease, Hypertension, Diabetes, Anxiety, COPD, PUD, GERD, Arthritis, Gout - Past Surgical History Surgical History: Tonsillectomy Additional Surgical History: PACEMAKER - Family History Family Medical History: Diabetes Mellitus, Cancer - Social History Does patient currently use any type of tobacco product: No Have you used tobacco products in the last 12 months: No Type of Tobacco Use: None Does any household member use tobacco: No Alcohol Use: None Drug Use: None - Medications Home Medications: codeine Allergy (Verified 02/09/20 18:16) iodine Allergy (Verified 02/09/20 18:16) CONTINUE taking the following medications cholecalciferol (vitamin D3) [Vitamin D3] 25 mcg PO DAILY 02/09/20 [History] metformin 1,000 mg PO BID 02/09/20 [History] pregabalin 150 mg PO BID 02/09/20 [History] pyridoxine (vitamin B6) [Vitamin B-6] 50 mg PO DAILY 02/09/20 [History] zinc 50 mg PO DAILY 02/09/20 [History] - Review of Systems Constitutional: Fever, Weakness Eyes: No Symptoms Reported Respiratory: Shortness of Breath Cardiovascular: No Symptoms Reported Gastrointestinal: No Symptoms Reported Genitourinary: No Symptoms Reported Musculoskeletal: Back Pain, Leg Pain Skin: No Symptoms Reported Neurological: Weakness - Physical Exam Vital Signs: Temperature 98.0 F Pulse Rate [Right Brachial] 76 Pulse Rate 78 Respiratory Rate 20 Blood Pressure [Right Arm] 116/60 Blood Pressure [Left Arm] 135/61 Blood Pressure 154/66 O2 Sat by Pulse Oximetry 97 Oriented: Normal Eyes: Normal Ear: Normal Nose: Normal Throat: Dry Respiratory: Diminished Throughout Cardiovascular: Normal, Edema (+BILATERAL LE EDEMA) : Normal Auscultation: Bowel Sounds: Normal Palpation: Normal Tenderness: Normal Skin: Decreased Turgur Musculoskeletal: Right, Left, Knee, Leg, Back:Thoracic, Back:Lumbar, Motor Deficit Psychiatric: Anxiety Affect: Anxious Speech Pattern: Clear, Appropriate - Assessment/Plan (1) Pneumonia Qualifiers: Pneumonia type: due to unspecified organism Laterality: right Lung location: middle lobe of lung Qualified Code(s): J18.9 - Pneumonia, unspecified organism Status: Acute Plan: ADMIT, R/O SEPSIS. BLOOD AND SPUTUM CULTURE ORDERED ON ADMISSION. IV HYDRATION WITH STRICT I&OS, VERIFY AND RESUME HOME MEDICATIONS. IV ATBX, BP AND CARDIAC MONITORING. RESP THERAPY, SUPPLEMENTAL O2 (2) GERD (gastroesophageal reflux disease) Status: Acute (3) Anemia Status: Acute (4) CHF (congestive heart failure) Qualifiers: Heart failure type: unspecified Heart failure chronicity: unspecified Qualified Code(s): I50.9 - Heart failure, unspecified Status: Acute (5) Diabetes Qualifiers: Diabetes mellitus type: type 2 Diabetes mellitus watermelon inspector insulin use: unspecified watermelon inspector insulin use status Diabetes mellitus complication status: without complication Qualified Code(s): E11.9 - Type 2 diabetes mellitus without complications Status: Acute (6) Rheumatoid arthritis Qualifiers: Rheumatoid arthritis location: knee Rheumatoid factor presence: unspecified presence Laterality: bilateral Qualified Code(s): M06.9 - Rheumatoid arthritis, unspecified Status: Acute - Allergies Allergies/Adverse Reactions: Allergies Allergy/AdvReac Type Severity Reaction Status Date / Time codeine Allergy Verified 02/09/20 18:16 iodine Allergy Verified 02/09/20 18:16
[2020-02-10] MEDS: HEMOCYTE-PLUS PO SCH (18:25)
[2020-02-10] MEDS: LIPITOR TAB 20 MG PO SCH (20:27)
[2020-02-11] MEDS: DUONEB 0.5 MG/3 MG (3 mL) NEB SCH ×6 (00:15→21:06)
[2020-02-11] MEDS: NORCO 10/325 TAB PO PRN ×2 (02:39→21:03)
[2020-02-11] MEDS: M.S. CONTIN 15 MG (EXTENDED RELEASE) PO PRN (05:24)
[2020-02-11 06:15] LABS: BASOPHILS % (AUTO) 0 % (0.2-1.0); HEMATOCRIT 30.6 % (42.0-54.0); HEMOGLOBIN 10.2 g/dL (13.5-18.0); LYMPHOCYTES # (AUTO) 0.4 X10^3/uL (1.3-2.9); LYMPHOCYTES % (AUTO) 7.1 % (21.0-51.0); MEAN CORPUSCULAR HGB CONC 33.4 g/dL (33.0-35.0); MEAN CORPUSCULAR VOLUME 89.9 fL (80.0-100.0); MEAN PLATELET VOLUME 10.7 fL (7.4-11.0); MONOCYTES # (AUTO) 0.1 x10^3/uL (0.3-0.8); NEUTROPHILS % (AUTO) 90.9 % (42.0-75.0); PLATELET COUNT 75 X10^3/uL (150.0-450.0); RED BLOOD COUNT 3.41 X10^6/uL (4.7-6.0); RED CELL DISTRIBUTION WIDTH 15.4 % (11.6-16.5); WHITE BLOOD COUNT 5.5 X10^3/uL (3.6-10.0)
[2020-02-11 06:22] LABS: ALANINE AMINOTRANSFERASE 21 Units/L (12-78); ALBUMIN 2.8 g/dL (3.4-5.0); ALKALINE PHOSPHATASE 61 Units/L (46-116); ASPARTATE AMINO TRANSFERASE 21 Units/L (15-37); BLOOD UREA NITROGEN 13 mg/dL (7-18); CALCIUM 9.1 mg/dL (8.5-10.1); CARBON DIOXIDE 27.7 mmol/L (21-32); CHLORIDE 105 mmol/L (98-107); COR CA(FOR HYPOALB) 10.1 mg/dL (8.5-10.1); COR NA(FOR HYPERGLY) 141 mmol/L (136-145); CREATININE 1.08 mg/dL (0.70-1.30); MAGNESIUM 1.7 mg/dL (1.7-2.9); SODIUM 139 mmol/L (136-145); TOTAL PROTEIN 6.3 g/dL (6.4-8.2); eGFR NON BLACK RACES > 60 (>60)
[2020-02-11 06:42] LABS: BAND NEUTROPHILS % 4 % (0-10); PLATELET MORPHOLOGY COMMENT NORMAL (NORMAL)
[2020-02-11] MEDS: PULMICORT NEB TX 0.5 MG NEB SCH ×2 (09:02→21:06)
[2020-02-11] MEDS: VIBRAMYCIN 100 MG in NS 100 ML IV + SPIKE MINIBAG* 100 ML IV SCH ×2 (09:55→21:03)
[2020-02-11] MEDS: PROTONIX INJ 40 MG VIAL IVP SCH (09:56)
[2020-02-11] MEDS: ROBITUSSIN DM PO SCH ×4 (09:56→21:05)
[2020-02-11] MEDS: REQUIP PO SCH ×2 (09:57→21:03)
[2020-02-11] MEDS: CARDURA PO SCH (09:58)
[2020-02-11] MEDS: VSL#3 PO SCH (09:58)
[2020-02-11] MEDS: HEMOCYTE-PLUS PO SCH (09:59)
[2020-02-11] MEDS: ROCEPHIN VIAL 1 GRAM 1 G in NS 100 ML IV + SPIKE MINIBAG* 100 ML IV SCH (10:00)
[2020-02-11] MEDS: ZYLOPRIM PO SCH (10:00)
[2020-02-11] MEDS: ZINC SULFATE PO SCH (10:00)
[2020-02-11] MEDS: LYRICA CAP 150 mg PO SCH ×2 (10:00→21:05)
[2020-02-11] MEDS ORDERED: INFeD or DEXFERRUM 25 MG in NS 100 ML IV 100 ML IV NR (10:00)
[2020-02-11] MEDS ORDERED: NS 100 ML IV + SPIKE MINIBAG* 100 ML IV ONE (10:40)
[2020-02-11] MEDS ORDERED: INFeD or DEXFERRUM 975 MG in NS 500 ML IV 500 ML IV NR (11:30)
--- NOTE | 2020-02-11 11:41 | PCM.PROG ---
Progress Note Progress Note for Day of Date of Exam: 02/11/20 Subjective Subjective: Pt is a 84 yo m pmhx CHF, COPD, HTN, DMT2, admitted for pneumonia. This morning he is feeling a little better. He is requiring 2L nc supplemental O2. Labs/imaging: Wbc 5.5, Hgb 10.2, Plt 75, Na 141, K 4.4, Cr 1.08, Gluc 199. CXR: improving left pleural effusion but it remains moderate in size. Persistent left lingular density is probably atelectasis but mild pneumonia is not excluded. BloodCx pending. His treatment course includes, Abx:Rocephin, and bronchodilators. Home medications resumed. SputumCx results showing yeast, will start on Diflucan. Will continue to monitor and follow up labs/imaging in the morning. Past Medical Family Social History Past Med/Fam/Surg Hx: No changes since H&P Allergies: Allergies codeine Allergy (Verified 02/09/20 18:16) iodine Allergy (Verified 02/09/20 18:16) Review of Systems ROS: No change since H&P Vital Signs and I&O's Vital Signs: Temperature 97.5 F Pulse Rate [Right Brachial] 72 Pulse Rate 72 Respiratory Rate 18 Blood Pressure [Right Arm] 139/69 Blood Pressure [Left Arm] 131/62 Blood Pressure 154/66 O2 Sat by Pulse Oximetry 98 Intake and Output: Intake & Output 02/08/20 02/09/20 02/10/20 02/11/20 23:59 23:59 23:59 23:59 Intake Total 240 / 240 2003 260 / 260 Balance 240 / 240 2003 260 / 260 Physical Exam Oriented: Normal Eyes: Normal Ear: Normal Nose: Normal Throat: Dry Respiratory: Diminished Cardiovascular: Normal and Edema (+BILATERAL LE EDEMA) : Normal Auscultation: Bowel Sounds: Normal Tenderness: Normal Skin: Decreased Turgur Musculoskeletal: Right, Left, Knee, Leg, Back:Thoracic, Back:Lumbar and Motor Deficit Psychiatric: Anxiety Affect: Anxious Speech Pattern: Clear Laboratory and Diagnostics Result Diagrams: 02/11/20 05:45 02/11/20 05:45 Labs: 02/09/20 14:27 Blood Blood Culture - Preliminary 02/09/20 13:55 Blood Blood Culture - Preliminary 02/09/20 18:15 Sputum - Expectorated Sputum Sputum Culture - Preliminary 02/09/20 18:15 Sputum - Expectorated Sputum - Final 02/09/20 17:43 Urine,Clean Catch Urine Culture - Final Laboratory WBC 5.5 X10^3/uL (3.6-10.0) 02/11/20 05:45 RBC 3.41 X10^6/uL (4.7-6.0) L 02/11/20 05:45 Hgb 10.2 g/dL (13.5-18.0) L 02/11/20 05:45 Hct 30.6 % (42.0-54.0) L 02/11/20 05:45 MCV 89.9 fL (80.0-100.0) 02/11/20 05:45 MCH 30.0 pg (27.0-34.0) 02/11/20 05:45 MCHC 33.4 g/dL (33.0-35.0) 02/11/20 05:45 RDW 15.4 % (11.6-16.5) 02/11/20 05:45 Plt Count 75 X10^3/uL (150.0-450.0) L 02/11/20 05:45 Plt Count Comment Decreased (ADEQUATE) 02/11/20 05:45 MPV 10.7 fL (7.4-11.0) 02/11/20 05:45 Neut % (Auto) 90.9 % (42.0-75.0) H 02/11/20 05:45 Lymph % (Auto) 7.1 % (21.0-51.0) L 02/11/20 05:45 [place] % (Auto) 2.0 % (0.0-13.0) 02/11/20 05:45 Eos % (Auto) 0.0 % (0.9-2.9) L 02/11/20 05:45 Baso % (Auto) 0 % (0.2-1.0) L 02/11/20 05:45 Neut # (Auto) 5.0 x10^3/uL (2.2-4.8) H 02/11/20 05:45 Lymph # (Auto) 0.4 X10^3/uL (1.3-2.9) L 02/11/20 05:45 [place] # (Auto) 0.1 x10^3/uL (0.3-0.8) L 02/11/20 05:45 Eos # (Auto) 0.0 x10^3/uL (0.0-0.2) 02/11/20 05:45 Baso # (Auto) 0.0 X10^3/uL (0.0-0.1) 02/11/20 05:45 Absolute Nucleated RBC 0.1 /100WBC 02/11/20 05:45 Total Counted 100 02/11/20 05:45 Neutrophils % (Manual) 88 % (39-76) H 02/11/20 05:45 Band Neutrophils % 4 % (0-10) 02/11/20 05:45 Lymphocytes % (Manual) 7 % (13-43) L 02/11/20 05:45 Monocytes % (Manual) 1 % (4-9) L 02/11/20 05:45 Plt Morphology Comment Normal (NORMAL) 02/11/20 05:45 RBC Morphology Normal (NORMAL) 02/11/20 05:45 Sodium 139 mmol/L (136-145) 02/11/20 05:45 Corrected Sodium 141 mmol/L (136-145) 02/11/20 05:45 Potassium 4.4 mmol/L (3.5-5.1) 02/11/20 05:45 Chloride 105 mmol/L (98-107) 02/11/20 05:45 Carbon Dioxide 27.7 mmol/L (21-32) 02/11/20 05:45 BUN 13 mg/dL (7-18) 02/11/20 05:45 Creatinine 1.08 mg/dL (0.70-1.30) 02/11/20 05:45 Est GFR (MDRD) Af Amer > 60 (>60) 02/11/20 05:45 Est GFR (MDRD) Non-Af > 60 (>60) 02/11/20 05:45 Glucose 199 mg/dL (65-99) H 02/11/20 05:45 POC Glucose (mg/dL) 150 mg/dL (65-99) H 02/11/20 11:25 Lactic Acid 0.9 mmol/L (0.4-2.0) 02/09/20 13:55 Calcium 9.1 mg/dL (8.5-10.1) 02/11/20 05:45 Corrected Calcium 10.1 mg/dL (8.5-10.1) 02/11/20 05:45 Magnesium 1.7 mg/dL (1.7-2.9) 02/11/20 05:45 Iron 12 ug/dL (50-175) L 02/10/20 05:30 Transferrin 177 mg/dL (202-364) L 02/10/20 05:30 Ferritin 180 ng/mL (26-388) 02/10/20 05:30 Total Bilirubin 0.50 mg/dL (0.2-1.0) 02/11/20 05:45 AST 21 Units/L (15-37) 02/11/20 05:45 ALT 21 Units/L (12-78) 02/11/20 05:45 Alkaline Phosphatase 61 Units/L (46-116) 02/11/20 05:45 Creatine Kinase 91 Units/L (39-308) 02/10/20 01:06 CK-MB (CK-2) 1.1 ng/mL (0-4.0) 02/10/20 01:06 CK/CKMB % Calc 1.2 % (<4) 02/10/20 01:06 Troponin I < 0.02 ng/mL (0-1.5) 02/10/20 01:06 C-Reactive Protein 68.60 mg/L (0-3.0) H 02/09/20 13:55 Total Protein 6.3 g/dL (6.4-8.2) L 02/11/20 05:45 Albumin 2.8 g/dL (3.4-5.0) L 02/11/20 05:45 Globulin 3.5 g/dL (2.5-4.5) 02/11/20 05:45 Albumin/Globulin Ratio 0.8 Ratio (1.1-2.1) L 02/11/20 05:45 Vitamin B12 540 pg/mL (193-986) 02/10/20 05:30 Folate > 20.0 ng/mL (>8.6) 02/10/20 05:30 Specimen Type Clean catch urine 02/09/20 17:43 Urine Color Yellow (YELLOW) 02/09/20 17:43 Urine Appearance Clear (CLEAR) 02/09/20 17:43 Urine pH 8.0 (5.0 - 8.0) 02/09/20 17:43 Ur Specific [place] 1.010 (1.000-1.030) 02/09/20 17:43 Urine Protein Negative (NEGATIVE) 02/09/20 17:43 Urine Glucose (UA) Negative (NEGATIVE) 02/09/20 17:43 Urine Ketones Negative (NEGATIVE) 02/09/20 17:43 Urine Occult Blood Negative (NEGATIVE) 02/09/20 17:43 Urine Nitrite Negative (NEGATIVE) 02/09/20 17:43 Urine Bilirubin Negative (NEGATIVE) 02/09/20 17:43 Urine Urobilinogen 1+ (NORMAL) 02/09/20 17:43 Ur Leukocyte Esterase Negative (NEGATIVE) 02/09/20 17:43 Urine RBC None seen /HPF (0-3) 02/09/20 17:43 Urine WBC None seen /HPF (0-5) 02/09/20 17:43 Ur Squamous Epith Cells Negative /HPF (NEGATIVE) 02/09/20 17:43 Urine Bacteria Negative /HPF (NEGATIVE) 02/09/20 17:43 Ur Culture Indicated? No/not indicated 02/09/20 17:43 SARS-CoV-2 (PCR) Negative (NEGATIVE) 02/09/20 15:30 Plan (1) Pneumonia: Status: Acute Qualifiers: Laterality: right Lung location: middle lobe of lung Pneumonia type: due to unspecified organism Qualified Code(s): J18.9 - Pneumonia, unspecified organism Plan: ADMIT, R/O SEPSIS BLOOD AND SPUTUM CULTURE ORDERED ON ADMISSION IV HYDRATION WITH STRICT I&OS, VERIFY AND RESUME HOME MEDICATIONS IV ATBX, BP AND CARDIAC MONITORING RESP THERAPY, SUPPLEMENTAL O2 (2) GERD (gastroesophageal reflux disease): Status: Acute (3) Anemia: Status: Acute (4) CHF (congestive heart failure): Status: Acute Qualifiers: Heart failure chronicity: unspecified Heart failure type: unspecified Qualified Code(s): I50.9 - Heart failure, unspecified (5) Diabetes: Status: Acute Qualifiers: Diabetes mellitus complication status: without complication Diabetes mellitus 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
[2020-02-11] MEDS: DIFLUCAN 200 MG IV PREMIX* 200 MG/100 ML BAG IV SCH (13:35)
[2020-02-11] MEDS: NS 1/2 1000 ML IV 1,000 ML IV SCH (15:43)
[2020-02-11] MEDS: LIPITOR TAB 20 MG PO SCH (21:04)
[2020-02-12] MEDS: MAGNESIUM SULFATE 1 GRAM/100 mL PREMIX 1 GM/100 ML BAG IV PRN ×2 (00:05→01:30)
[2020-02-12] MEDS: DUONEB 0.5 MG/3 MG (3 mL) NEB SCH ×6 (00:18→21:39)
[2020-02-12] MEDS: NS 1/2 1000 ML IV 1,000 ML IV SCH ×2 (05:34→16:53)
[2020-02-12 06:26] LABS: BASOPHILS % (AUTO) 0.2 % (0.2-1.0); EOSINOPHILS # (AUTO) 0.1 x10^3/uL (0.0-0.2); EOSINOPHILS % (AUTO) 1.2 % (0.9-2.9); HEMATOCRIT 28.4 % (42.0-54.0); HEMOGLOBIN 9.4 g/dL (13.5-18.0); LYMPHOCYTES # (AUTO) 1.5 X10^3/uL (1.3-2.9); LYMPHOCYTES % (AUTO) 17.1 % (21.0-51.0); MEAN CORPUSCULAR HEMOGLOBIN 30.2 pg (27.0-34.0); MEAN CORPUSCULAR HGB CONC 33.3 g/dL (33.0-35.0); MEAN CORPUSCULAR VOLUME 90.6 fL (80.0-100.0); MEAN PLATELET VOLUME 10.2 fL (7.4-11.0); MONOCYTES # (AUTO) 0.5 x10^3/uL (0.3-0.8); MONOCYTES % (AUTO) 5.7 % (0.0-13.0); NEUTROPHILS # (AUTO) 6.7 x10^3/uL (2.2-4.8); NEUTROPHILS % (AUTO) 75.8 % (42.0-75.0); PLATELET COUNT 88 X10^3/uL (150.0-450.0); RED BLOOD COUNT 3.13 X10^6/uL (4.7-6.0); WHITE BLOOD COUNT 8.8 X10^3/uL (3.6-10.0)
[2020-02-12 06:41] LABS: ALBUMIN 2.7 g/dL (3.4-5.0); ALKALINE PHOSPHATASE 56 Units/L (46-116); BLOOD UREA NITROGEN 15 mg/dL (7-18); CALCIUM 8.8 mg/dL (8.5-10.1); CARBON DIOXIDE 26.8 mmol/L (21-32); CHLORIDE 105 mmol/L (98-107); COR CA(FOR HYPOALB) 9.8 mg/dL (8.5-10.1); COR NA(FOR HYPERGLY) 140 mmol/L (136-145); CREATININE 1.06 mg/dL (0.70-1.30); MAGNESIUM 2.3 mg/dL (1.7-2.9); SODIUM 139 mmol/L (136-145); TOTAL PROTEIN 5.8 g/dL (6.4-8.2); eGFR NON BLACK RACES > 60 (>60)
[2020-02-12 07:44] LABS: ALANINE AMINOTRANSFERASE 22 Units/L (12-78); ASPARTATE AMINO TRANSFERASE 21 Units/L (15-37)
[2020-02-12] MEDS: HEMOCYTE-PLUS PO SCH (08:13)
[2020-02-12] MEDS: DIFLUCAN 200 MG IV PREMIX* 200 MG/100 ML BAG IV SCH (08:13)
[2020-02-12] MEDS: LYRICA CAP 150 mg PO SCH ×2 (08:14→20:55)
[2020-02-12] MEDS: REQUIP PO SCH ×2 (08:14→20:52)
[2020-02-12] MEDS: PROTONIX INJ 40 MG VIAL IVP SCH (08:14)
[2020-02-12] MEDS: ROBITUSSIN DM PO SCH ×4 (08:14→20:55)
[2020-02-12] MEDS: ZINC SULFATE PO SCH (08:15)
[2020-02-12] MEDS: VSL#3 PO SCH (08:15)
[2020-02-12] MEDS: ROCEPHIN VIAL 1 GRAM 1 G in NS 100 ML IV + SPIKE MINIBAG* 100 ML IV SCH (08:15)
[2020-02-12] MEDS: VIBRAMYCIN 100 MG in NS 100 ML IV + SPIKE MINIBAG* 100 ML IV SCH ×2 (08:15→20:56)
[2020-02-12] MEDS: NORCO 10/325 TAB PO PRN (08:16)
[2020-02-12] MEDS: ZYLOPRIM PO SCH (08:16)
[2020-02-12] MEDS: CARDURA PO SCH (08:19)
[2020-02-12] MEDS: PULMICORT NEB TX 0.5 MG NEB SCH ×2 (09:00→21:39)
--- NOTE | 2020-02-12 09:22 | RAD ---
HISTORYPneumoniaSTUDYAP [id number]/17/2020FINDINGSContinued upper normal heart size. No change in position of pacing d evice. There is persistent blunting of the left costophrenic angle. There is no evidence for segmenta l or lobar consolidation, pulmonary edema or pneumothorax.IMPRESSIONPersistent pleural deformity left base consistent with residual pleural effusion or chronic pleural thickening. Decubitus views would be helpful to make this distinction.Electronically signed by: CLAIRE LR (Feb 12, 2020 09:21:46)
--- NOTE | 2020-02-12 10:53 | PCM.PROG ---
Progress Note Progress Note for Day of Date of Exam: 02/12/20 Subjective Subjective: Pt is a 84 yo m pmhx CHF, COPD, HTN, DMT2, admitted for pneumonia. Pt is laying comfortably in bed this morning. No acute events overnight. He is on supplemental O2, 2L nc. Labs/imaging: Wbc 8.8, Hgb 9.4, Plt 88, Na 139, K 4.0, Cr 1.06, Gluc 134. CXR: Persistent pleural deformity left base consistent with residual pleural effusion or chronic pleural thickening. Decubitus views would be helpful to make this distinction. BloodCx prelim NGTD. His treatment course includes, Abx: Rocephin + Diflucan, and bronchodilators. Continue treatments, monitor and follow up labs/imaging in the morning. Past Medical Family Social History Past Med/Fam/Surg Hx: No changes since H&P Allergies: Allergies codeine Allergy (Verified 02/09/20 18:16) iodine Allergy (Verified 02/09/20 18:16) Review of Systems ROS: No change since H&P Vital Signs and I&O's Vital Signs: Temperature 97.6 F Pulse Rate [Right Brachial] 69 Pulse Rate 72 Respiratory Rate 20 Blood Pressure [Right Arm] 139/69 Blood Pressure [Left Arm] 140/72 Blood Pressure 154/66 O2 Sat by Pulse Oximetry 97 Intake and Output: Intake & Output 02/09/20 02/10/20 02/11/20 02/12/20 23:59 23:59 23:59 23:59 Intake Total 240 / 240 2003 2495 / 2495 528 / 528 Output Total 700 / 700 Balance 240 / 240 2003 2495 / 2495 -172 / -172 Physical Exam Oriented: Normal Eyes: Normal Ear: Normal Nose: Normal Throat: Dry Respiratory: Diminished Cardiovascular: Normal and Edema (+BILATERAL LE EDEMA) : Normal Auscultation: Bowel Sounds: Normal Tenderness: Normal Skin: Decreased Turgur Musculoskeletal: Right, Left, Knee, Leg, Back:Thoracic, Back:Lumbar and Motor Deficit Psychiatric: Anxiety Affect: Anxious Speech Pattern: Clear Laboratory and Diagnostics Result Diagrams: 02/12/20 05:37 02/12/20 05:37 Labs: 02/09/20 18:15 Sputum - Expectorated Sputum Sputum Culture - Final 02/09/20 18:15 Sputum - Expectorated Sputum - Final 02/09/20 14:27 Blood Blood Culture - Preliminary 02/09/20 13:55 Blood Blood Culture - Preliminary 02/09/20 17:43 Urine,Clean Catch Urine Culture - Final Laboratory WBC 8.8 X10^3/uL (3.6-10.0) 02/12/20 05:37 RBC 3.13 X10^6/uL (4.7-6.0) L 02/12/20 05:37 Hgb 9.4 g/dL (13.5-18.0) L 02/12/20 05:37 Hct 28.4 % (42.0-54.0) L 02/12/20 05:37 MCV 90.6 fL (80.0-100.0) 02/12/20 05:37 MCH 30.2 pg (27.0-34.0) 02/12/20 05:37 MCHC 33.3 g/dL (33.0-35.0) 02/12/20 05:37 RDW 15.0 % (11.6-16.5) 02/12/20 05:37 Plt Count 88 X10^3/uL (150.0-450.0) L 02/12/20 05:37 Plt Count Comment Decreased (ADEQUATE) 02/11/20 05:45 MPV 10.2 fL (7.4-11.0) 02/12/20 05:37 Neut % (Auto) 75.8 % (42.0-75.0) H 02/12/20 05:37 Lymph % (Auto) 17.1 % (21.0-51.0) L 02/12/20 05:37 [place] % (Auto) 5.7 % (0.0-13.0) 02/12/20 05:37 Eos % (Auto) 1.2 % (0.9-2.9) 02/12/20 05:37 Baso % (Auto) 0.2 % (0.2-1.0) 02/12/20 05:37 Neut # (Auto) 6.7 x10^3/uL (2.2-4.8) H 02/12/20 05:37 Lymph # (Auto) 1.5 X10^3/uL (1.3-2.9) 02/12/20 05:37 [place] # (Auto) 0.5 x10^3/uL (0.3-0.8) 02/12/20 05:37 Eos # (Auto) 0.1 x10^3/uL (0.0-0.2) 02/12/20 05:37 Baso # (Auto) 0.0 X10^3/uL (0.0-0.1) 02/12/20 05:37 Absolute Nucleated RBC 0.0 /100WBC 02/12/20 05:37 Total Counted 100 02/11/20 05:45 Neutrophils % (Manual) 88 % (39-76) H 02/11/20 05:45 Band Neutrophils % 4 % (0-10) 02/11/20 05:45 Lymphocytes % (Manual) 7 % (13-43) L 02/11/20 05:45 Monocytes % (Manual) 1 % (4-9) L 02/11/20 05:45 Plt Morphology Comment Normal (NORMAL) 02/11/20 05:45 RBC Morphology Normal (NORMAL) 02/11/20 05:45 Sodium 139 mmol/L (136-145) 02/12/20 05:37 Corrected Sodium 140 mmol/L (136-145) 02/12/20 05:37 Potassium 4.0 mmol/L (3.5-5.1) 02/12/20 05:37 Chloride 105 mmol/L (98-107) 02/12/20 05:37 Carbon Dioxide 26.8 mmol/L (21-32) 02/12/20 05:37 BUN 15 mg/dL (7-18) 02/12/20 05:37 Creatinine 1.06 mg/dL (0.70-1.30) 02/12/20 05:37 Est GFR (MDRD) Af Amer > 60 (>60) 02/12/20 05:37 Est GFR (MDRD) Non-Af > 60 (>60) 02/12/20 05:37 Glucose 134 mg/dL (65-99) H 02/12/20 05:37 POC Glucose (mg/dL) 113 mg/dL (65-99) H 02/12/20 05:21 Lactic Acid 0.9 mmol/L (0.4-2.0) 02/09/20 13:55 Calcium 8.8 mg/dL (8.5-10.1) 02/12/20 05:37 Corrected Calcium 9.8 mg/dL (8.5-10.1) 02/12/20 05:37 Magnesium 2.3 mg/dL (1.7-2.9) 02/12/20 05:37 Iron 12 ug/dL (50-175) L 02/10/20 05:30 Transferrin 177 mg/dL (202-364) L 02/10/20 05:30 Ferritin 180 ng/mL (26-388) 02/10/20 05:30 Total Bilirubin 0.30 mg/dL (0.2-1.0) 02/12/20 05:37 AST 21 Units/L (15-37) 02/12/20 05:37 ALT 22 Units/L (12-78) 02/12/20 05:37 Alkaline Phosphatase 56 Units/L (46-116) 02/12/20 05:37 Creatine Kinase 91 Units/L (39-308) 02/10/20 01:06 CK-MB (CK-2) 1.1 ng/mL (0-4.0) 02/10/20 01:06 CK/CKMB % Calc 1.2 % (<4) 02/10/20 01:06 Troponin I < 0.02 ng/mL (0-1.5) 02/10/20 01:06 C-Reactive Protein 68.60 mg/L (0-3.0) H 02/09/20 13:55 Total Protein 5.8 g/dL (6.4-8.2) L 02/12/20 05:37 Albumin 2.7 g/dL (3.4-5.0) L 02/12/20 05:37 Globulin 3.1 g/dL (2.5-4.5) 02/12/20 05:37 Albumin/Globulin Ratio 0.9 Ratio (1.1-2.1) L 02/12/20 05:37 Vitamin B12 540 pg/mL (193-986) 02/10/20 05:30 Folate > 20.0 ng/mL (>8.6) 02/10/20 05:30 Specimen Type Clean catch urine 02/09/20 17:43 Urine Color Yellow (YELLOW) 02/09/20 17:43 Urine Appearance Clear (CLEAR) 02/09/20 17:43 Urine pH 8.0 (5.0 - 8.0) 02/09/20 17:43 Ur Specific [place] 1.010 (1.000-1.030) 02/09/20 17:43 Urine Protein Negative (NEGATIVE) 02/09/20 17:43 Urine Glucose (UA) Negative (NEGATIVE) 02/09/20 17:43 Urine Ketones Negative (NEGATIVE) 02/09/20 17:43 Urine Occult Blood Negative (NEGATIVE) 02/09/20 17:43 Urine Nitrite Negative (NEGATIVE) 02/09/20 17:43 Urine Bilirubin Negative (NEGATIVE) 02/09/20 17:43 Urine Urobilinogen 1+ (NORMAL) 02/09/20 17:43 Ur Leukocyte Esterase Negative (NEGATIVE) 02/09/20 17:43 Urine RBC None seen /HPF (0-3) 02/09/20 17:43 Urine WBC None seen /HPF (0-5) 02/09/20 17:43 Ur Squamous Epith Cells Negative /HPF (NEGATIVE) 02/09/20 17:43 Urine Bacteria Negative /HPF (NEGATIVE) 02/09/20 17:43 Ur Culture Indicated? No/not indicated 02/09/20 17:43 Stool Description Fob tube 02/12/20 06:16 Stl Occult Blood (IFOB) Positive (NEGATIVE) A 02/12/20 06:16 SARS-CoV-2 (PCR) Negative (NEGATIVE) 02/09/20 15:30 Plan (1) Pneumonia: Status: Acute Qualifiers: Laterality: right Lung location: middle lobe of lung Pneumonia type: due to unspecified organism Qualified Code(s): J18.9 - Pneumonia, unspecified organism Plan: ADMIT, R/O SEPSIS BLOOD AND SPUTUM CULTURE ORDERED ON ADMISSION IV HYDRATION WITH STRICT I&OS, VERIFY AND RESUME HOME MEDICATIONS IV ATBX, BP AND CARDIAC MONITORING RESP THERAPY, SUPPLEMENTAL O2 (2) GERD (gastroesophageal reflux disease): Status: Acute (3) Anemia: Status: Acute (4) CHF (congestive heart failure): Status: Acute Qualifiers: Heart failure chronicity: unspecified Heart failure type: unspecified Qualified Code(s): I50.9 - Heart failure, unspecified (5) Diabetes: Status: Acute Qualifiers: Diabetes mellitus complication status: without complication Diabetes mellitus [facility] insulin use: unspecified terminal 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
[2020-02-12] MEDS: LIPITOR TAB 20 MG PO SCH (20:53)
[2020-02-13] MEDS: DUONEB 0.5 MG/3 MG (3 mL) NEB SCH ×6 (00:13→20:40)
[2020-02-13] MEDS: NS 1/2 1000 ML IV 1,000 ML IV SCH ×2 (05:55→20:25)
[2020-02-13 06:36] LABS: BASOPHILS % (AUTO) 0.5 % (0.2-1.0); EOSINOPHILS # (AUTO) 0.2 x10^3/uL (0.0-0.2); EOSINOPHILS % (AUTO) 2.9 % (0.9-2.9); HEMATOCRIT 30.1 % (42.0-54.0); HEMOGLOBIN 10.4 g/dL (13.5-18.0); LYMPHOCYTES # (AUTO) 1.6 X10^3/uL (1.3-2.9); MEAN CORPUSCULAR HEMOGLOBIN 30.4 pg (27.0-34.0); MEAN CORPUSCULAR HGB CONC 34.4 g/dL (33.0-35.0); MEAN CORPUSCULAR VOLUME 88.5 fL (80.0-100.0); MEAN PLATELET VOLUME 9.7 fL (7.4-11.0); MONOCYTES # (AUTO) 0.5 x10^3/uL (0.3-0.8); NEUTROPHILS # (AUTO) 3.9 x10^3/uL (2.2-4.8); NEUTROPHILS % (AUTO) 62.6 % (42.0-75.0); PLATELET COUNT 106 X10^3/uL (150.0-450.0); RED CELL DISTRIBUTION WIDTH 15.5 % (11.6-16.5); WHITE BLOOD COUNT 6.3 X10^3/uL (3.6-10.0)
[2020-02-13 06:45] LABS: ALANINE AMINOTRANSFERASE 26 Units/L (12-78); ALBUMIN 2.9 g/dL (3.4-5.0); ALKALINE PHOSPHATASE 64 Units/L (46-116); ASPARTATE AMINO TRANSFERASE 24 Units/L (15-37); BLOOD UREA NITROGEN 11 mg/dL (7-18); CALCIUM 9.1 mg/dL (8.5-10.1); CARBON DIOXIDE 27.6 mmol/L (21-32); CHLORIDE 106 mmol/L (98-107); CREATININE 1.02 mg/dL (0.70-1.30); SODIUM 141 mmol/L (136-145); TOTAL PROTEIN 6.1 g/dL (6.4-8.2); eGFR NON BLACK RACES > 60 (>60)
[2020-02-13] MEDS: DIFLUCAN 200 MG IV PREMIX* 200 MG/100 ML BAG IV SCH (08:31)
[2020-02-13] MEDS: CARDURA PO SCH (08:31)
[2020-02-13] MEDS: PROTONIX INJ 40 MG VIAL IVP SCH (08:32)
[2020-02-13] MEDS: LYRICA CAP 150 mg PO SCH ×2 (08:32→20:53)
[2020-02-13] MEDS: HEMOCYTE-PLUS PO SCH (08:32)
[2020-02-13] MEDS: VSL#3 PO SCH (08:33)
[2020-02-13] MEDS: VIBRAMYCIN 100 MG in NS 100 ML IV + SPIKE MINIBAG* 100 ML IV SCH ×2 (08:33→20:25)
[2020-02-13] MEDS: ROCEPHIN VIAL 1 GRAM 1 G in NS 100 ML IV + SPIKE MINIBAG* 100 ML IV SCH (08:33)
[2020-02-13] MEDS: ROBITUSSIN DM PO SCH ×4 (08:33→20:25)
[2020-02-13] MEDS: ZINC SULFATE PO SCH (08:34)
[2020-02-13] MEDS: ZYLOPRIM PO SCH (08:36)
[2020-02-13] MEDS: NORCO 10/325 TAB PO PRN ×2 (08:37→20:48)
[2020-02-13] MEDS: PULMICORT NEB TX 0.5 MG NEB SCH ×2 (09:20→20:40)
[2020-02-13] MEDS: REQUIP PO SCH ×2 (10:09→20:24)
[2020-02-13] MEDS: LIPITOR TAB 20 MG PO SCH (20:24)
[2020-02-14] MEDS: DUONEB 0.5 MG/3 MG (3 mL) NEB SCH ×7 (01:32→20:50)
[2020-02-14 06:26] LABS: BASOPHILS % (AUTO) 0.5 % (0.2-1.0); EOSINOPHILS # (AUTO) 0.3 x10^3/uL (0.0-0.2); EOSINOPHILS % (AUTO) 4.4 % (0.9-2.9); HEMATOCRIT 29.5 % (42.0-54.0); LYMPHOCYTES # (AUTO) 1.8 X10^3/uL (1.3-2.9); LYMPHOCYTES % (AUTO) 29.5 % (21.0-51.0); MEAN CORPUSCULAR HEMOGLOBIN 29.9 pg (27.0-34.0); MEAN CORPUSCULAR HGB CONC 33.8 g/dL (33.0-35.0); MEAN CORPUSCULAR VOLUME 88.5 fL (80.0-100.0); MEAN PLATELET VOLUME 9.4 fL (7.4-11.0); MONOCYTES # (AUTO) 0.5 x10^3/uL (0.3-0.8); MONOCYTES % (AUTO) 8.6 % (0.0-13.0); NEUTROPHILS # (AUTO) 3.4 x10^3/uL (2.2-4.8); PLATELET COUNT 109 X10^3/uL (150.0-450.0); RED BLOOD COUNT 3.33 X10^6/uL (4.7-6.0); RED CELL DISTRIBUTION WIDTH 15.3 % (11.6-16.5)
[2020-02-14 06:54] LABS: ALANINE AMINOTRANSFERASE 25 Units/L (12-78); ALBUMIN 2.7 g/dL (3.4-5.0); ALKALINE PHOSPHATASE 61 Units/L (46-116); ASPARTATE AMINO TRANSFERASE 23 Units/L (15-37); BLOOD UREA NITROGEN 11 mg/dL (7-18); CALCIUM 9.1 mg/dL (8.5-10.1); CARBON DIOXIDE 31.5 mmol/L (21-32); CHLORIDE 106 mmol/L (98-107); COR CA(FOR HYPOALB) 10.1 mg/dL (8.5-10.1); CREATININE 1.07 mg/dL (0.70-1.30); SODIUM 142 mmol/L (136-145); TOTAL PROTEIN 5.8 g/dL (6.4-8.2); eGFR NON BLACK RACES > 60 (>60)
[2020-02-14] MEDS: ROCEPHIN VIAL 1 GRAM 1 G in NS 100 ML IV + SPIKE MINIBAG* 100 ML IV SCH (09:38)
[2020-02-14] MEDS: HEMOCYTE-PLUS PO SCH (09:38)
[2020-02-14] MEDS: PROTONIX INJ 40 MG VIAL IVP SCH (09:38)
[2020-02-14] MEDS: ROBITUSSIN DM PO SCH ×4 (09:39→21:55)
[2020-02-14] MEDS: VSL#3 PO SCH (09:39)
[2020-02-14] MEDS: ZYLOPRIM PO SCH (09:41)
[2020-02-14] MEDS: CARDURA PO SCH (09:42)
[2020-02-14] MEDS: REQUIP PO SCH ×2 (09:42→21:55)
[2020-02-14] MEDS: K-DUR TAB 20 MEQ PO SCH (09:42)
[2020-02-14] MEDS: LYRICA CAP 150 mg PO SCH ×2 (09:42→21:54)
[2020-02-14] MEDS: ZINC SULFATE PO SCH (09:42)
[2020-02-14] MEDS: NS 1/2 1000 ML IV 1,000 ML IV SCH (09:43)
[2020-02-14] MEDS: PULMICORT NEB TX 0.5 MG NEB SCH ×2 (09:48→20:50)
[2020-02-14] MEDS: VIBRAMYCIN 100 MG in NS 100 ML IV + SPIKE MINIBAG* 100 ML IV SCH ×2 (10:18→21:55)
[2020-02-14] MEDS: DIFLUCAN 200 MG IV PREMIX* 200 MG/100 ML BAG IV SCH (12:22)
[2020-02-14] MEDS: LASIX IVP SCH (16:18)
[2020-02-14] MEDS: NORCO 10/325 TAB PO PRN (21:00)
[2020-02-14] MEDS: COLACE CAP 100 MG PO SCH (21:54)
[2020-02-14] MEDS: LIPITOR TAB 20 MG PO SCH (21:54)
[2020-02-14] MEDS: M.S. CONTIN 15 MG (EXTENDED RELEASE) PO PRN (23:10)
[2020-02-15] MEDS: DUONEB 0.5 MG/3 MG (3 mL) NEB SCH ×6 (00:01→21:04)
[2020-02-15] MEDS: NS 1/2 1000 ML IV 1,000 ML IV SCH ×2 (00:16→20:28)
[2020-02-15] MEDS ORDERED: NS 1/2 1000 ML IV 1,000 ML IV ONE (01:02)
[2020-02-15] MEDS: NORCO 10/325 TAB PO PRN ×3 (05:37→20:09)
[2020-02-15 06:24] LABS: BASOPHILS % (AUTO) 0.7 % (0.2-1.0); EOSINOPHILS # (AUTO) 0.3 x10^3/uL (0.0-0.2); EOSINOPHILS % (AUTO) 4.2 % (0.9-2.9); HEMATOCRIT 30.9 % (42.0-54.0); HEMOGLOBIN 10.5 g/dL (13.5-18.0); LYMPHOCYTES % (AUTO) 27.4 % (21.0-51.0); MEAN CORPUSCULAR HEMOGLOBIN 30.2 pg (27.0-34.0); MEAN CORPUSCULAR HGB CONC 33.9 g/dL (33.0-35.0); MEAN CORPUSCULAR VOLUME 88.9 fL (80.0-100.0); MEAN PLATELET VOLUME 8.9 fL (7.4-11.0); MONOCYTES # (AUTO) 0.6 x10^3/uL (0.3-0.8); MONOCYTES % (AUTO) 8.5 % (0.0-13.0); NEUTROPHILS # (AUTO) 4.3 x10^3/uL (2.2-4.8); NEUTROPHILS % (AUTO) 59.2 % (42.0-75.0); PLATELET COUNT 139 X10^3/uL (150.0-450.0); RED BLOOD COUNT 3.47 X10^6/uL (4.7-6.0); RED CELL DISTRIBUTION WIDTH 15.5 % (11.6-16.5); WHITE BLOOD COUNT 7.3 X10^3/uL (3.6-10.0)
[2020-02-15 06:41] LABS: ALANINE AMINOTRANSFERASE 27 Units/L (12-78); ALBUMIN 2.9 g/dL (3.4-5.0); ALKALINE PHOSPHATASE 63 Units/L (46-116); ASPARTATE AMINO TRANSFERASE 25 Units/L (15-37); BLOOD UREA NITROGEN 15 mg/dL (7-18); CARBON DIOXIDE 31.5 mmol/L (21-32); CHLORIDE 105 mmol/L (98-107); COR CA(FOR HYPOALB) 9.9 mg/dL (8.5-10.1); CREATININE 1.15 mg/dL (0.70-1.30); SODIUM 141 mmol/L (136-145); TOTAL PROTEIN 6.4 g/dL (6.4-8.2); eGFR NON BLACK RACES > 60 (>60)
[2020-02-15] MEDS: PULMICORT NEB TX 0.5 MG NEB SCH ×2 (08:08→21:04)
[2020-02-15] MEDS: CARDURA PO SCH (08:48)
[2020-02-15] MEDS: HEMOCYTE-PLUS PO SCH (08:49)
[2020-02-15] MEDS: LASIX IVP SCH (08:50)
[2020-02-15] MEDS: ROBITUSSIN DM PO SCH ×4 (08:51→20:08)
[2020-02-15] MEDS: DIFLUCAN 200 MG IV PREMIX* 200 MG/100 ML BAG IV SCH (08:51)
[2020-02-15] MEDS: ZYLOPRIM PO SCH (08:52)
[2020-02-15] MEDS: K-DUR TAB 20 MEQ PO SCH (09:00)
[2020-02-15] MEDS: LYRICA CAP 150 mg PO SCH ×2 (09:01→20:07)
[2020-02-15] MEDS: PROTONIX INJ 40 MG VIAL IVP SCH (09:01)
[2020-02-15] MEDS: REQUIP PO SCH ×2 (09:02→20:08)
[2020-02-15] MEDS: VSL#3 PO SCH (09:02)
[2020-02-15] MEDS: ZINC SULFATE PO SCH (09:03)
[2020-02-15] MEDS ORDERED: REQUIP PO ONE (09:25)
[2020-02-15] MEDS: ROCEPHIN VIAL 1 GRAM 1 G in NS 100 ML IV + SPIKE MINIBAG* 100 ML IV SCH (10:00)
[2020-02-15] MEDS: VIBRAMYCIN 100 MG in NS 100 ML IV + SPIKE MINIBAG* 100 ML IV SCH ×2 (10:30→20:08)
--- NOTE | 2020-02-15 12:12 | RAD ---
HISTORYPNEUMONIA, SOBSTUDYCHEST, 1 VIEWCOMPARISONChest film February 12, 2020FINDINGSThe trachea is midline. The cardiac silhouette is unremarkable . The lungs are clear without focal infiltrate or effusion. Pacemaker is in place battery on the right with 2 electrodes and retained electrodes from previously placed left-sided pacemaker. The bony thorax is unremarkable. The blunting the left costophrenic angle is unchanged from the prior CT August 03, 2019 and may be due to pleural scarring versus pleural fluid.IMPRESSIONNo acute cardiopulmonary disease and no change from the recent film February 12, 2020..Electronically signed by: MIC CADET (Feb 15, 2020 12:12:26)
[2020-02-15] MEDS: LIPITOR TAB 20 MG PO SCH (20:07)
[2020-02-15] MEDS: COLACE CAP 100 MG PO SCH (20:07)
[2020-02-16] MEDS: DUONEB 0.5 MG/3 MG (3 mL) NEB SCH ×6 (00:45→20:40)
[2020-02-16] MEDS: NORCO 10/325 TAB PO PRN ×2 (03:45→21:37)
[2020-02-16] MEDS: NS 1/2 1000 ML IV 1,000 ML IV SCH (03:45)
[2020-02-16 06:20] LABS: BASOPHILS % (AUTO) 0.6 % (0.2-1.0); EOSINOPHILS # (AUTO) 0.4 x10^3/uL (0.0-0.2); EOSINOPHILS % (AUTO) 5.4 % (0.9-2.9); HEMATOCRIT 29.6 % (42.0-54.0); LYMPHOCYTES # (AUTO) 2.1 X10^3/uL (1.3-2.9); LYMPHOCYTES % (AUTO) 27.5 % (21.0-51.0); MEAN CORPUSCULAR HEMOGLOBIN 30.3 pg (27.0-34.0); MEAN CORPUSCULAR HGB CONC 33.6 g/dL (33.0-35.0); MEAN CORPUSCULAR VOLUME 90.1 fL (80.0-100.0); MEAN PLATELET VOLUME 9.5 fL (7.4-11.0); MONOCYTES # (AUTO) 0.7 x10^3/uL (0.3-0.8); MONOCYTES % (AUTO) 8.8 % (0.0-13.0); NEUTROPHILS # (AUTO) 4.5 x10^3/uL (2.2-4.8); NEUTROPHILS % (AUTO) 57.7 % (42.0-75.0); PLATELET COUNT 129 X10^3/uL (150.0-450.0); RED BLOOD COUNT 3.29 X10^6/uL (4.7-6.0); RED CELL DISTRIBUTION WIDTH 15.8 % (11.6-16.5); WHITE BLOOD COUNT 7.7 X10^3/uL (3.6-10.0)
[2020-02-16 06:43] LABS: ALANINE AMINOTRANSFERASE 29 Units/L (12-78); ALBUMIN 2.8 g/dL (3.4-5.0); ALKALINE PHOSPHATASE 62 Units/L (46-116); ASPARTATE AMINO TRANSFERASE 25 Units/L (15-37); BLOOD UREA NITROGEN 20 mg/dL (7-18); CALCIUM 8.7 mg/dL (8.5-10.1); CARBON DIOXIDE 29.4 mmol/L (21-32); CHLORIDE 105 mmol/L (98-107); COR CA(FOR HYPOALB) 9.7 mg/dL (8.5-10.1); COR NA(FOR HYPERGLY) 141 mmol/L (136-145); CREATININE 1.12 mg/dL (0.70-1.30); SODIUM 140 mmol/L (136-145); TOTAL PROTEIN 6.2 g/dL (6.4-8.2); eGFR NON BLACK RACES > 60 (>60)
[2020-02-16] MEDS: ROCEPHIN VIAL 1 GRAM 1 G in NS 100 ML IV + SPIKE MINIBAG* 100 ML IV SCH (08:32)
[2020-02-16] MEDS: PULMICORT NEB TX 0.5 MG NEB SCH ×2 (08:51→20:40)
[2020-02-16] MEDS: CARDURA PO SCH (09:18)
[2020-02-16] MEDS: HEMOCYTE-PLUS PO SCH (09:18)
[2020-02-16] MEDS: K-DUR TAB 20 MEQ PO SCH (09:19)
[2020-02-16] MEDS: LYRICA CAP 150 mg PO SCH ×2 (09:19→21:10)
[2020-02-16] MEDS: ROBITUSSIN DM PO SCH ×4 (09:20→21:14)
[2020-02-16] MEDS: VSL#3 PO SCH (09:20)
[2020-02-16] MEDS: REQUIP PO SCH ×2 (09:20→21:11)
[2020-02-16] MEDS: ZYLOPRIM PO SCH (09:22)
[2020-02-16] MEDS: ZINC SULFATE PO SCH (09:22)
[2020-02-16] MEDS: PROTONIX INJ 40 MG VIAL IVP SCH (10:00)
[2020-02-16] MEDS: DIFLUCAN 200 MG IV PREMIX* 200 MG/100 ML BAG IV SCH (10:00)
--- NOTE | 2020-02-16 10:15 | RAD ---
HISTORYABD DISENTIONSTUDYKUBCOMPARISONKUB from 07/22/2019TECHNIQUETwo-view abdomenFINDINGSNonobstructive bowel gas pattern. No definite pneumatosis, free air or portal venous gas. No suspicious calcifications.IMPRESSIONNonobstructive bowel gas pattern.Electronically signed by: Ruy Pierson (Feb 16, 2020 10:14:55)
[2020-02-16] MEDS: VIBRAMYCIN 100 MG in NS 100 ML IV + SPIKE MINIBAG* 100 ML IV SCH ×2 (11:00→21:09)
[2020-02-16] MEDS: LIPITOR TAB 20 MG PO SCH (21:11)
[2020-02-16] MEDS: COLACE CAP 100 MG PO SCH (21:11)
[2020-02-17] MEDS: DUONEB 0.5 MG/3 MG (3 mL) NEB SCH ×4 (01:05→12:59)
[2020-02-17 06:47] LABS: BASOPHILS # (AUTO) 0.1 X10^3/uL (0.0-0.1); BASOPHILS % (AUTO) 0.7 % (0.2-1.0); EOSINOPHILS # (AUTO) 0.4 x10^3/uL (0.0-0.2); EOSINOPHILS % (AUTO) 5.4 % (0.9-2.9); HEMATOCRIT 31.4 % (42.0-54.0); HEMOGLOBIN 10.6 g/dL (13.5-18.0); LYMPHOCYTES % (AUTO) 26.7 % (21.0-51.0); MEAN CORPUSCULAR HEMOGLOBIN 30.2 pg (27.0-34.0); MEAN CORPUSCULAR HGB CONC 33.7 g/dL (33.0-35.0); MEAN CORPUSCULAR VOLUME 89.8 fL (80.0-100.0); MEAN PLATELET VOLUME 9.2 fL (7.4-11.0); MONOCYTES # (AUTO) 0.6 x10^3/uL (0.3-0.8); MONOCYTES % (AUTO) 7.9 % (0.0-13.0); NEUTROPHILS # (AUTO) 4.4 x10^3/uL (2.2-4.8); NEUTROPHILS % (AUTO) 59.3 % (42.0-75.0); PLATELET COUNT 131 X10^3/uL (150.0-450.0); RED CELL DISTRIBUTION WIDTH 15.4 % (11.6-16.5); WHITE BLOOD COUNT 7.4 X10^3/uL (3.6-10.0)
[2020-02-17 06:50] LABS: ALANINE AMINOTRANSFERASE 35 Units/L (12-78); ALBUMIN 2.9 g/dL (3.4-5.0); ALKALINE PHOSPHATASE 64 Units/L (46-116); ASPARTATE AMINO TRANSFERASE 32 Units/L (15-37); BLOOD UREA NITROGEN 18 mg/dL (7-18); CALCIUM 9.2 mg/dL (8.5-10.1); CARBON DIOXIDE 26.9 mmol/L (21-32); CHLORIDE 106 mmol/L (98-107); COR CA(FOR HYPOALB) 10.1 mg/dL (8.5-10.1); CREATININE 1.03 mg/dL (0.70-1.30); SODIUM 141 mmol/L (136-145); TOTAL PROTEIN 6.4 g/dL (6.4-8.2); eGFR NON BLACK RACES > 60 (>60)
[2020-02-17] MEDS: ROCEPHIN VIAL 1 GRAM 1 G in NS 100 ML IV + SPIKE MINIBAG* 100 ML IV SCH (08:37)
[2020-02-17] MEDS: CARDURA PO SCH (08:38)
[2020-02-17] MEDS: HEMOCYTE-PLUS PO SCH (08:39)
[2020-02-17] MEDS: K-DUR TAB 20 MEQ PO SCH (08:39)
[2020-02-17] MEDS: LYRICA CAP 150 mg PO SCH (08:40)
[2020-02-17] MEDS: REQUIP PO SCH (08:41)
[2020-02-17] MEDS: PROTONIX INJ 40 MG VIAL IVP SCH (08:41)
[2020-02-17] MEDS: ROBITUSSIN DM PO SCH (08:42)
[2020-02-17] MEDS: VSL#3 PO SCH (08:42)
[2020-02-17] MEDS: ZINC SULFATE PO SCH (08:43)
[2020-02-17] MEDS: PULMICORT NEB TX 0.5 MG NEB SCH (09:30)
[2020-02-17 10:25] VITALS: BP 176/74
[2020-02-17] MEDS: VIBRAMYCIN 100 MG in NS 100 ML IV + SPIKE MINIBAG* 100 ML IV SCH (10:30)
== END 2020-02-17 13:20 | disposition home or self-care (01) | DRG 194 ==
LOC: ER 12:45 → MED/SURG 12:45
PROVIDERS: ADMIT Internal Medicine; ATTEND Internal Medicine
DX: D64.9 Anemia, unspecified; J18.9 Pneumonia, unspecified organism; Z95.810 Presence of automatic (implantable) cardiac defibrillator; I25.10 Atherosclerotic heart disease of native coronary artery without angina pectoris; Z91.81 History of falling; R41.82 Altered mental status, unspecified; E11.8 Type 2 diabetes mellitus with unspecified complications; B00.1 Herpesviral vesicular dermatitis; M17.0 Bilateral primary osteoarthritis of knee; Z99.81 Dependence on supplemental oxygen; Z20.828 Contact with and (suspected) exposure to other viral communicable diseases; R62.7 Adult failure to thrive; R14.0 Abdominal distension (gaseous); Z95.0 Presence of cardiac pacemaker; J90 Pleural effusion, not elsewhere classified; I50.9 Heart failure, unspecified; J44.9 Chronic obstructive pulmonary disease, unspecified

== ENCOUNTER 2021-01-22 19:28 | Observation (INO) ==
[2021-01-22 19:39] VITALS: BMI 33.3
--- NOTE | 2021-01-22 19:45 | DR.AMS ---
HPI Time Seen Time Seen by Provider: 01/22/21 19:35 PMH PMH Past Medical History: Anxiety, Arthritis, COPD, Coronary Artery Disease, Diabetes, GERD, Gout, Hypertension and PUD Past Surgical History: Yes Surgical History: Tonsillectomy Family History Family Medical History: Diabetes Mellitus and Cancer Social History Do you use any recreational Drugs:: No PE Vitals Vital Signs: Temp Pulse Pulse Resp BP BP BP 01/23/21 01:37 77 22 134/61 01/23/21 00:08 20 01/22/21 22:41 88 22 136/58 01/22/21 19:31 99.9 F H 70 24 139/63 02/17/20 12:00 176/74 02/15/20 16:00 101/56 Pulse Ox 01/23/21 01:37 94 L 01/23/21 00:08 01/22/21 22:41 96 01/22/21 19:31 94 L 02/17/20 12:00 02/15/20 16:00 ROR Labs Reviewed Result Diagrams: 01/22/21 20:37 01/22/21 20:37 Laboratory: WBC 15.1 X10^3/uL (3.6-10.0) H 01/22/21 20:37 RBC 3.79 X10^6/uL (4.7-6.0) L 01/22/21 20:37 Hgb 11.4 g/dL (13.5-18.0) L 01/22/21 20:37 Hct 35.1 % (42.0-54.0) L 01/22/21 20:37 MCV 92.5 fL (80.0-100.0) 01/22/21 20:37 MCH 30.1 pg (27.0-34.0) 01/22/21 20:37 MCHC 32.5 g/dL (33.0-35.0) L 01/22/21 20:37 RDW 14.5 % (11.6-16.5) 01/22/21 20:37 Plt Count 83 X10^3/uL (150.0-450.0) L 01/22/21 20:37 Plt Count Comment Decreased (ADEQUATE) 01/22/21 20:37 MPV 10.7 fL (7.4-11.0) 01/22/21 20:37 Neut % (Auto) 75.7 % (42.0-75.0) H 01/22/21 20:37 Lymph % (Auto) 15.4 % (21.0-51.0) L 01/22/21 20:37 [place] % (Auto) 4.8 % (0.0-13.0) 01/22/21 20:37 Eos % (Auto) 1.8 % (0.9-2.9) 01/22/21 20:37 Baso % (Auto) 2.3 % (0.2-1.0) H 01/22/21 20:37 Neut # (Auto) 11.4 x10^3/uL (2.2-4.8) H 01/22/21 20:37 Lymph # (Auto) 2.3 X10^3/uL (1.3-2.9) 01/22/21 20:37 [place] # (Auto) 0.7 x10^3/uL (0.3-0.8) 01/22/21 20:37 Eos # (Auto) 0.3 x10^3/uL (0.0-0.2) H 01/22/21 20:37 Baso # (Auto) 0.3 X10^3/uL (0.0-0.1) H 01/22/21 20:37 Absolute Nucleated RBC 0.1 /100WBC 01/22/21 20:37 Plt Morphology Comment Normal (NORMAL) 01/22/21 20:37 RBC Morphology Normal (NORMAL) 01/22/21 20:37 Sodium 142 mmol/L (136-145) 01/22/21 20:37 Corrected Sodium 143 mmol/L (136-145) 01/22/21 20:37 Potassium 4.3 mmol/L (3.5-5.1) 01/22/21 20:37 Chloride 102 mmol/L (98-107) 01/22/21 20:37 Carbon Dioxide 31.7 mmol/L (21-32) 01/22/21 20:37 BUN 14 mg/dL (7-18) 01/22/21 20:37 Creatinine 1.25 mg/dL (0.70-1.30) 01/22/21 20:37 Est GFR (MDRD) Af Amer > 60 (>60) 01/22/21 20:37 Est GFR (MDRD) Non-Af 58 (>60) L 01/22/21 20:37 Glucose 136 mg/dL (65-99) H 01/22/21 20:37 Lactic Acid 0.9 mmol/L (0.4-2.0) 01/22/21 20:37 Calcium 8.2 mg/dL (8.5-10.1) L 01/22/21 20:37 Corrected Calcium 8.8 mg/dL (8.5-10.1) 01/22/21 20:37 Total Bilirubin 0.90 mg/dL (0.2-1.0) 01/22/21 20:37 AST 24 Units/L (15-37) 01/22/21 20:37 ALT 25 Units/L (12-78) 01/22/21 20:37 Alkaline Phosphatase 54 Units/L (46-116) 01/22/21 20:37 Creatine Kinase 64 Units/L (39-308) 01/22/21 20:37 CK-MB (CK-2) < 1.0 ng/mL (0-4.0) 01/22/21 20:37 CK/CKMB % Calc 1.6 % (<4) 01/22/21 20:37 Troponin I < 0.02 ng/mL (0-1.5) 01/22/21 20:37 Total Protein 6.1 g/dL (6.4-8.2) L 01/22/21 20:37 Albumin 3.3 g/dL (3.4-5.0) L 01/22/21 20:37 Globulin 2.8 g/dL (2.5-4.5) 01/22/21 20:37 Albumin/Globulin Ratio 1.2 Ratio (1.1-2.1) 01/22/21 20:37 SARS CoV-2 RNA Rapid CAMRYN Negative (NEGATIVE) 01/22/21 21:05 Opioid Opioid Risk Tool Age (Ciaran box if 16-45): No History of Preadolescent Sexual Abuse: No Total: 0 Total Score Risk Category: Low Risk Copyright: Pepe RAI predicting aberrant behaviors Diagnosis Discharge Problem: Generalized weakness, Fever in adult, Bronchitis Leukocytosis (leucocytosis) Qualifiers: Leukocytosis type: unspecified Qualified Code(s): D72.829 - Elevated white blood cell count, unspecified Instructions Forms: Precautions for COVID19 Patient Portal Social Distancing
--- NOTE | 2021-01-22 20:19 | CT ---
CT head without contrastIndication: Altered mental status and feverTECHNIQUEAxial images from the skullbase to the vertex without contrast. Coronal and sagittal reformats provided.FINDINGSThe left mastoid air cells remain opacified, similar to the prior with partial opacification of the right mastoid air cells noted. Remaining paranasal sinuses are clear. No destructive osseous lesion identified.There is moderate cerebral atrophy with ex vacuo ventricular and sulcal enlargement. Prominent extra-axial CSF spaces are similar to the prior.There is no acute intracranial hemorrhage, mass or mass effect. No hyperdense extra-axial fluid collection identified. No abnormal area of hypoattenuation to suggest infarction seen.IMPRESSION1. No acute intracranial hemorrhage2. Moderate atrophy with prominent extra-axial fluid spaces, similar to multiple prior head CTs, dating back to July 18, 2019Electronically signed by: MAXINE IBARRA (Jan 22, 2021 20:17:16)
[2021-01-22] MEDS ORDERED: NS 500 ML IV 500 ML IV ONE (20:33)
[2021-01-22 20:53] LABS: BASOPHILS # (AUTO) 0.3 X10^3/uL (0.0-0.1); BASOPHILS % (AUTO) 2.3 % (0.2-1.0); EOSINOPHILS # (AUTO) 0.3 x10^3/uL (0.0-0.2); EOSINOPHILS % (AUTO) 1.8 % (0.9-2.9); HEMATOCRIT 35.1 % (42.0-54.0); HEMOGLOBIN 11.4 g/dL (13.5-18.0); LYMPHOCYTES # (AUTO) 2.3 X10^3/uL (1.3-2.9); LYMPHOCYTES % (AUTO) 15.4 % (21.0-51.0); MEAN CORPUSCULAR HEMOGLOBIN 30.1 pg (27.0-34.0); MEAN CORPUSCULAR HGB CONC 32.5 g/dL (33.0-35.0); MEAN CORPUSCULAR VOLUME 92.5 fL (80.0-100.0); MEAN PLATELET VOLUME 10.7 fL (7.4-11.0); MONOCYTES # (AUTO) 0.7 x10^3/uL (0.3-0.8); MONOCYTES % (AUTO) 4.8 % (0.0-13.0); NEUTROPHILS # (AUTO) 11.4 x10^3/uL (2.2-4.8); NEUTROPHILS % (AUTO) 75.7 % (42.0-75.0); PLATELET COUNT 83 X10^3/uL (150.0-450.0); RED BLOOD COUNT 3.79 X10^6/uL (4.7-6.0); RED CELL DISTRIBUTION WIDTH 14.5 % (11.6-16.5); WHITE BLOOD COUNT 15.1 X10^3/uL (3.6-10.0)
[2021-01-22] MEDS: NS 1000 ML 1,000 ML IV SCH (20:53)
[2021-01-22 20:59] LABS: LACTIC ACID 0.9 mmol/L (0.4-2.0)
--- NOTE | 2021-01-22 21:00 | RAD ---
Chest AP portableIndication: Altered mental status and fever.COMPARISONSept2019.FINDINGSThere is prominent heart size with old pacemaker leads in left and new pacemaker on the right. Heart size is unchanged from the prior. There is no pneumothorax or large effusion. Question left lower lobe lung nodule. Nonemergent follow-up will be needed.IMPRESSION:1. Prominent heart size and chronic lung changes without acute chest process otherwise.2. Question left lower lobe lung nodule can be followed up non emergently with outpatient CT.Electronically signed by: MAXINE IBARRA (Jan 22, 2021 20:58:37)
[2021-01-22 21:08] LABS: ALANINE AMINOTRANSFERASE 25 Units/L (12-78); ALBUMIN 3.3 g/dL (3.4-5.0); ALKALINE PHOSPHATASE 54 Units/L (46-116); ASPARTATE AMINO TRANSFERASE 24 Units/L (15-37); BLOOD UREA NITROGEN 14 mg/dL (7-18); CALCIUM 8.2 mg/dL (8.5-10.1); CARBON DIOXIDE 31.7 mmol/L (21-32); CKMB % 1.6 % (<4); COR CA(FOR HYPOALB) 8.8 mg/dL (8.5-10.1); CREATINE KINASE 64 Units/L (39-308); CREATINE KINASE MB < 1.0 ng/mL (0-4.0); CREATININE 1.25 mg/dL (0.70-1.30); TOTAL PROTEIN 6.1 g/dL (6.4-8.2); TROPONIN I < 0.02 ng/mL (0-1.5); eGFR NON BLACK RACES 58 (>60)
[2021-01-22 21:16] LABS: CHLORIDE 102 mmol/L (98-107); COR NA(FOR HYPERGLY) 143 mmol/L (136-145); SODIUM 142 mmol/L (136-145)
[2021-01-22 21:42] LABS: PLATELET MORPHOLOGY COMMENT NORMAL (NORMAL)
[2021-01-22] MEDS ORDERED: ZOFRAN INJ 4 MG VIAL IVP ONE (23:58)
[2021-01-22] MEDS ORDERED: MORPHINE SULFATE INJ 4 MG IVP ONE (23:58)
[2021-01-22] MEDS ORDERED: ROCEPHIN 1 GRAM IV PREMIX 1 G/50 ML IV.SOLN. IV SCH (23:59)
[2021-01-23] MEDS ORDERED: MORPHINE SULFATE INJ 4 MG ONE (00:01)
[2021-01-23] MEDS ORDERED: ZOFRAN INJ 4 MG VIAL ONE (00:01)
[2021-01-23] MEDS ORDERED: ROCEPHIN 1 GRAM IV PREMIX 1 G/50 ML IV.SOLN. IV ONE (00:02)
[2021-01-23] MEDS ORDERED: M.S. CONTIN 15 MG (EXTENDED RELEASE) PO ONE (04:14)
[2021-01-23] MEDS ORDERED: TORADOL 30 MG VIAL IVP ONE (04:22)
[2021-01-23] MEDS ORDERED: TORADOL 30 MG VIAL ONE (04:24)
[2021-01-23] MEDS ORDERED: ROCEPHIN 1 GRAM IV PREMIX 1 G/50 ML IV.SOLN. IV SCH ×2 (04:41→21:00)
[2021-01-23] MEDS: NS 1000 ML 1,000 ML IV SCH (06:15)
[2021-01-23 08:45] LABS: CREATINE KINASE 209 Units/L (39-308); TROPONIN I < 0.02 ng/mL (0-1.5)
[2021-01-23] MEDS ORDERED: PATIENT'S HOME MEDICATION (Ipratropium-Albuterol [Combivent Respimat] 20-100 mcg/actuation IN SCH (09:15)
[2021-01-23] MEDS: LYRICA CAP 150 mg PO SCH ×3 (10:31→22:40)
[2021-01-23] MEDS: NORCO 10/325 TAB PO PRN (10:32)
[2021-01-23] MEDS: ZYLOPRIM PO SCH ×2 (11:14→14:17)
[2021-01-23] MEDS: REQUIP PO SCH ×3 (11:17→22:40)
[2021-01-23 13:30] LABS: CKMB % 1.1 % (<4); CREATINE KINASE 363 Units/L (39-308); CREATINE KINASE MB 3.8 ng/mL (0-4.0); TROPONIN I < 0.02 ng/mL (0-1.5)
[2021-01-23 15:47] LABS: BILIRUBIN,URINE NEGATIVE (NEGATIVE); BLOOD/HEMOGLOBIN,URINE 5+ (NEGATIVE); GLUCOSE, URINE NEGATIVE (NEGATIVE); KETONES,URINE 1+ (NEGATIVE); LEUKOCYTE ESTERASE ,URINE NEGATIVE (NEGATIVE); NITRITES,URINE NEGATIVE (NEGATIVE); PROTEIN,URINE 1+ (NEGATIVE); UROBILINOGEN,URINE NORMAL (NORMAL)
[2021-01-23 15:56] LABS: APPEARANCE,URINE HAZY (CLEAR); COLOR,URINE AMBER (YELLOW); RBC,URINE 30-50 /HPF (0-3)
[2021-01-23 15:57] LABS: BACTERIA,URINE TRACE /HPF (NEGATIVE); GRANULAR CASTS,URINE RARE /LPF (NEGATIVE); MUCUS,URINE RARE /HPF (NEGATIVE); SQUAMOUS EPITHELIAL CELL,UR NEGATIVE /HPF (NEGATIVE); TRANSITIONAL EPI CELLS,URINE RARE /HPF (NEGATIVE)
[2021-01-23] MEDS: DUONEB 0.5 MG/3 MG (3 mL) NEB SCH ×3 (17:31→21:00)
--- NOTE | 2021-01-23 18:09 | DR.H&P ---
H&P - History & Physical for Day of: H&P Date: 01/23/21 - Chief Complaint Chief Complaint: AMS - History of Present Illness History of Present Illness: PT IS 85 WM ER ADMISSION WITH NEW ONSET AMS WITH FEVER, INCREASED SOB. PT TESTED NEGATIVE FOR COVID IN ER, CT HEAD WITHOUT ACUTE CVA. PT HAS PMH OF CAD, CHF, COPD, RA, HTN, OA. PT ADMITTED FOR TREATMENT OF ACUTE ILLNESS. - Past Medical History Past Medical History: Coronary Artery Disease, Hypertension, Diabetes, Anxiety, COPD, PUD, GERD, Arthritis, Gout - Past Surgical History Surgical History: Tonsillectomy Additional Surgical History: PACEMAKER - Family History Family Medical History: Diabetes Mellitus, Cancer - Social History Does patient currently use any type of tobacco product: No Have you used tobacco products in the last 12 months: No Type of Tobacco Use: None Does any household member use tobacco: No Alcohol Use: None Drug Use: None Risks, benefits, and alternatives of opioids discussed: No Prescription drug monitoring program results: PDMP reviewed and no concerns identified - Medications Home Medications: codeine Allergy (Verified 02/09/20 18:16) iodine Allergy (Verified 02/09/20 18:16) CONTINUE taking the following medications doxepin 10 mg PO HS 01/23/21 [History] esomeprazole magnesium 40 mg PO DAILY 01/23/21 [History] famotidine 40 mg PO BID 01/23/21 [History] morphine 30 mg PO BID PRN 01/23/21 [History] - Review of Systems Constitutional: Fever, Weakness, Malaise Eyes: No Symptoms Reported ENT: No Symptoms Reported Respiratory: Shortness of Breath, SOB with Excertion Cardiovascular: Edema Gastrointestinal: No Symptoms Reported Genitourinary: No Symptoms Reported Musculoskeletal: Back Pain, Leg Pain Skin: No Symptoms Reported Neurological: Weakness, Confusion - Physical Exam Vital Signs: Temperature 97.8 F Pulse Rate [Apical] 79 Pulse Rate 80 Respiratory Rate 18 Blood Pressure [Right Arm] 122/56 Blood Pressure [Left Arm] 96/47 Blood Pressure 139/63 O2 Sat by Pulse Oximetry 96 Oriented: Person Ear: Normal Nose: Normal Throat: Normal Respiratory: Diminished Throughout Cardiovascular: Edema, Other (PACE MAKER PRESENT) : Normal Auscultation: Bowel Sounds: Normal Palpation: Normal Tenderness: Normal Skin: Decreased Turgur Musculoskeletal: Right, Left, Motor Deficit Speech Pattern: Delayed - Assessment/Plan (1) AMS (altered mental status) Status: Acute Plan: ADMIT, CT HEAD ON ADMISSION. IV HYDRATION, STRICT I&OS. SERIAL CE AND EKG MONITORING. VERIFY HOME MEDICATIONS, IV ATBX. BP CONTROL, BS CONTROL (2) Pneumonia Qualifiers: Pneumonia type: due to unspecified organism Laterality: right Lung location: middle lobe of lung Qualified Code(s): J18.9 - Pneumonia, unspecified organism Status: Acute (3) GERD (gastroesophageal reflux disease) Status: Acute (4) CHF (congestive heart failure) Qualifiers: Heart failure type: unspecified Heart failure chronicity: unspecified Qualified Code(s): I50.9 - Heart failure, unspecified Status: Acute (5) Diabetes mellitus Qualifiers: Diabetes mellitus type: type 2 Diabetes mellitus manager terminal insulin use: without manager terminal use Diabetes mellitus complication status: without complication Qualified Code(s): E11.9 - Type 2 diabetes mellitus without complications Status: Acute (6) CHF (congestive heart failure) Qualifiers: Heart failure type: combined systolic and diastolic Heart failure chronicity: acute on chronic Qualified Code(s): I50.43 - Acute on chronic combined systolic (congestive) and diastolic (congestive) heart failure Status: Acute (7) COPD exacerbation Status: Acute - Allergies Allergies/Adverse Reactions: Allergies Allergy/AdvReac Type Severity Reaction Status Date / Time codeine Allergy Verified 02/09/20 18:16 iodine Allergy Verified 02/09/20 18:16
[2021-01-23] MEDS ORDERED: M.S. CONTIN 15 MG (EXTENDED RELEASE) PO SCH (21:00)
[2021-01-23] MEDS: MICRO K EXTEN CAP 10 MEQ PO SCH (22:40)
[2021-01-24] MEDS: NS 1000 ML 1,000 ML IV SCH (03:54)
[2021-01-24] MEDS: NORCO 10/325 TAB PO PRN (03:54)
[2021-01-24 04:00] LABS: ABG BASE EXCESS 8.2 mmol/L (-2.0-2.0)
[2021-01-24 04:02] LABS: ABG ALLEN TEST POS; ABG HCO3 34.7 mmol/L (22-26)
[2021-01-24 06:44] LABS: ALANINE AMINOTRANSFERASE 19 Units/L (12-78); ALBUMIN 2.7 g/dL (3.4-5.0); ALKALINE PHOSPHATASE 46 Units/L (46-116); ASPARTATE AMINO TRANSFERASE 25 Units/L (15-37); BLOOD UREA NITROGEN 19 mg/dL (7-18); CALCIUM 7.9 mg/dL (8.5-10.1); CARBON DIOXIDE 31.8 mmol/L (21-32); CHLORIDE 107 mmol/L (98-107); COR CA(FOR HYPOALB) 8.9 mg/dL (8.5-10.1); COR NA(FOR HYPERGLY) 145 mmol/L (136-145); CREATININE 1.09 mg/dL (0.70-1.30); MAGNESIUM 1.6 mg/dL (1.7-2.9); SODIUM 144 mmol/L (136-145); TOTAL PROTEIN 5.6 g/dL (6.4-8.2); eGFR NON BLACK RACES > 60 (>60)
[2021-01-24 06:53] LABS: BASOPHILS % (AUTO) 0.3 % (0.2-1.0); EOSINOPHILS # (AUTO) 0.2 x10^3/uL (0.0-0.2); EOSINOPHILS % (AUTO) 2.2 % (0.9-2.9); HEMATOCRIT 29.3 % (42.0-54.0); LYMPHOCYTES # (AUTO) 1.2 X10^3/uL (1.3-2.9); MEAN CORPUSCULAR HEMOGLOBIN 31.8 pg (27.0-34.0); MEAN CORPUSCULAR HGB CONC 34.1 g/dL (33.0-35.0); MEAN CORPUSCULAR VOLUME 93.2 fL (80.0-100.0); MEAN PLATELET VOLUME 10.9 fL (7.4-11.0); MONOCYTES # (AUTO) 0.6 x10^3/uL (0.3-0.8); MONOCYTES % (AUTO) 6.5 % (0.0-13.0); NEUTROPHILS # (AUTO) 6.9 x10^3/uL (2.2-4.8); PLATELET COUNT 65 X10^3/uL (150.0-450.0); RED BLOOD COUNT 3.14 X10^6/uL (4.7-6.0); RED CELL DISTRIBUTION WIDTH 14.5 % (11.6-16.5); WHITE BLOOD COUNT 8.9 X10^3/uL (3.6-10.0)
[2021-01-24] MEDS: LASIX IVP SCH ×2 (08:28→16:54)
[2021-01-24] MEDS: DUONEB 0.5 MG/3 MG (3 mL) NEB SCH ×4 (08:55→20:45)
[2021-01-24] MEDS: ROCEPHIN VIAL 1 GRAM 1 G in NS 100 ML IV + SPIKE MINIBAG* 100 ML IV SCH ×2 (09:18)
[2021-01-24] MEDS: SOLU-Medrol 125 MG VIAL IVP SCH ×3 (09:19→22:40)
[2021-01-24] MEDS: ZYLOPRIM PO SCH (09:47)
[2021-01-24] MEDS: REQUIP PO SCH ×2 (09:47→21:50)
[2021-01-24] MEDS: MICRO K EXTEN CAP 10 MEQ PO SCH ×2 (09:49→22:40)
[2021-01-24] MEDS: LYRICA CAP 150 mg PO SCH ×2 (09:49→21:50)
[2021-01-24] MEDS: PROTONIX INJ 40 MG VIAL IVP SCH ×2 (11:40→21:50)
[2021-01-25] MEDS: NS 1000 ML 1,000 ML IV SCH (05:21)
[2021-01-25] MEDS: DUONEB 0.5 MG/3 MG (3 mL) NEB SCH ×4 (09:16→20:31)
[2021-01-25] MEDS: ROCEPHIN VIAL 1 GRAM 1 G in NS 100 ML IV + SPIKE MINIBAG* 100 ML IV SCH (09:35)
[2021-01-25] MEDS: ZYLOPRIM PO SCH (09:35)
[2021-01-25] MEDS: LYRICA CAP 150 mg PO SCH ×2 (09:35→21:51)
[2021-01-25] MEDS: PROTONIX INJ 40 MG VIAL IVP SCH ×2 (09:35→21:52)
[2021-01-25] MEDS: REQUIP PO SCH ×2 (09:35→22:52)
[2021-01-25 09:51] LABS: HEMOGLOBIN 10.4 g/dL (13.5-18.0); LYMPHOCYTES # (AUTO) 0.9 X10^3/uL (1.3-2.9); MONOCYTES # (AUTO) 0.3 x10^3/uL (0.3-0.8); MONOCYTES % (AUTO) 2.3 % (0.0-13.0)
--- NOTE | 2021-01-25 09:52 | RAD ---
HISTORYPNEUMONIA, COPD, CHF Relevant Clinical InformationSTUDYCHEST, 1 [id number]/31/2021FINDINGSTrachea is midline. There is stable mild cardiomegaly. There is a right-sided pacemaker with 2 leads. There are old left-sided pacemaker wires. There is no evidence of focal pneumonia or pneumothorax. Mild chronic changes in the left base with subsegmental atelectasis in the left midlung zone. No pleural effusions.IMPRESSIONPersistent mild chronic changes in the left base and subsegmental atelectasisNo alveolar consolidations.Electronically signed by: Meagan Haines (Jan 25, 2021 09:50:20)
[2021-01-25 09:56] LABS: BASOPHILS % (AUTO) 0.2 % (0.2-1.0); HEMATOCRIT 30.9 % (42.0-54.0); LYMPHOCYTES % (AUTO) 7.3 % (21.0-51.0); MEAN CORPUSCULAR HEMOGLOBIN 31.3 pg (27.0-34.0); MEAN CORPUSCULAR HGB CONC 33.8 g/dL (33.0-35.0); MEAN CORPUSCULAR VOLUME 92.8 fL (80.0-100.0); MEAN PLATELET VOLUME 11.1 fL (7.4-11.0); NEUTROPHILS # (AUTO) 11.1 x10^3/uL (2.2-4.8); NEUTROPHILS % (AUTO) 90.2 % (42.0-75.0); PLATELET COUNT 83 X10^3/uL (150.0-450.0); RED BLOOD COUNT 3.33 X10^6/uL (4.7-6.0); RED CELL DISTRIBUTION WIDTH 14.3 % (11.6-16.5); WHITE BLOOD COUNT 12.3 X10^3/uL (3.6-10.0)
[2021-01-25 10:02] LABS: ALANINE AMINOTRANSFERASE 24 Units/L (12-78); ALBUMIN 2.7 g/dL (3.4-5.0); ALKALINE PHOSPHATASE 51 Units/L (46-116); ASPARTATE AMINO TRANSFERASE 22 Units/L (15-37); BLOOD UREA NITROGEN 17 mg/dL (7-18); CALCIUM 8.3 mg/dL (8.5-10.1); CARBON DIOXIDE 31.9 mmol/L (21-32); CHLORIDE 103 mmol/L (98-107); COR CA(FOR HYPOALB) 9.3 mg/dL (8.5-10.1); COR NA(FOR HYPERGLY) 145 mmol/L (136-145); CREATININE 1.21 mg/dL (0.70-1.30); SODIUM 141 mmol/L (136-145); eGFR NON BLACK RACES > 60 (>60)
[2021-01-25] MEDS ORDERED: MILK OF MAGNESIA PO STA (10:35)
[2021-01-25] MEDS ORDERED: MILK OF MAGNESIA ONE (10:37)
[2021-01-25 10:54] LABS: BAND NEUTROPHILS % 3 % (0-10); PLATELET MORPHOLOGY COMMENT NORMAL (NORMAL)
[2021-01-25] MEDS ORDERED: MILK OF MAGNESIA PO SCH (21:00)
[2021-01-25] MEDS: COLACE CAP 100 MG PO SCH (21:51)
[2021-01-25] MEDS: NORCO 10/325 TAB PO PRN (22:53)
[2021-01-26] MEDS: DUONEB 0.5 MG/3 MG (3 mL) NEB SCH ×4 (09:35→20:50)
[2021-01-26] MEDS: ZYLOPRIM PO SCH (09:55)
[2021-01-26] MEDS: REQUIP PO SCH ×2 (09:55→21:47)
[2021-01-26] MEDS: PROTONIX INJ 40 MG VIAL IVP SCH (09:55)
[2021-01-26] MEDS: ROCEPHIN VIAL 1 GRAM 1 G in NS 100 ML IV + SPIKE MINIBAG* 100 ML IV SCH (09:55)
[2021-01-26] MEDS: LYRICA CAP 150 mg PO SCH ×2 (09:55→21:47)
[2021-01-26] MEDS: NS 1000 ML 1,000 ML IV SCH ×2 (10:20→21:46)
[2021-01-26 12:01] LABS: BLOOD UREA NITROGEN 18 mg/dL (7-18); CALCIUM 8.2 mg/dL (8.5-10.1); CARBON DIOXIDE 36.6 mmol/L (21-32); CHLORIDE 105 mmol/L (98-107); COR NA(FOR HYPERGLY) 144 mmol/L (136-145); CREATININE 1.06 mg/dL (0.70-1.30); SODIUM 143 mmol/L (136-145); eGFR NON BLACK RACES > 60 (>60)
[2021-01-26 12:10] LABS: BASOPHILS % (AUTO) 0 % (0.2-1.0); EOSINOPHILS % (AUTO) 0.1 % (0.9-2.9); HEMATOCRIT 30.1 % (42.0-54.0); HEMOGLOBIN 10.3 g/dL (13.5-18.0); LYMPHOCYTES % (AUTO) 9.7 % (21.0-51.0); MEAN CORPUSCULAR HEMOGLOBIN 31.7 pg (27.0-34.0); MEAN CORPUSCULAR HGB CONC 34.3 g/dL (33.0-35.0); MEAN CORPUSCULAR VOLUME 92.4 fL (80.0-100.0); MEAN PLATELET VOLUME 10.4 fL (7.4-11.0); MONOCYTES # (AUTO) 0.6 x10^3/uL (0.3-0.8); MONOCYTES % (AUTO) 5.6 % (0.0-13.0); NEUTROPHILS # (AUTO) 8.7 x10^3/uL (2.2-4.8); NEUTROPHILS % (AUTO) 84.6 % (42.0-75.0); PLATELET COUNT 87 X10^3/uL (150.0-450.0); RED BLOOD COUNT 3.26 X10^6/uL (4.7-6.0); RED CELL DISTRIBUTION WIDTH 14.4 % (11.6-16.5); WHITE BLOOD COUNT 10.2 X10^3/uL (3.6-10.0)
[2021-01-26] MEDS: NexIUM PO SCH (13:16)
--- NOTE | 2021-01-26 18:00 | PCM.PROG ---
Progress Note Progress Note for Day of Date of Exam: 01/26/21 Subjective Subjective: Patient seen at bedside, no events overnight. He states he is feeling better. He has been ambulating to the bathroom. He is currently being treated for AMS, acute rhabdomyolysis, CHF exacerbation and pneumonia. He is currently on 2L NC. He does use O2 at home. He reports eating well. Labs: WBC 10.2 Hgb: 10.3 Plt 87 BUN/Cr: 18/1.06 Glucose 124 CXR: chronic changes, atelectasis noted, no effusions Plan: Continue current treatment with IV Rocephin. Will restart lasix. Continue gentle hydration for elevated CK. Wean O2 as tolerated. Continue nebs. Continue home medications. Monitor AM labs/imaging. Past Medical Family Social History Past Med/Fam/Surg Hx: No changes since H&P Allergies: Allergies codeine Allergy (Verified 02/09/20 18:16) iodine Allergy (Verified 02/09/20 18:16) Review of Systems ROS: No change since H&P Vital Signs and I&O's Vital Signs: Temperature 97.7 F Pulse Rate [Apical] 86 Pulse Rate 74 Respiratory Rate 20 Blood Pressure [Right Arm] 169/70 Blood Pressure [Left Arm] 96/47 Blood Pressure 139/63 O2 Sat by Pulse Oximetry 97 Intake and Output: Intake & Output 01/23/21 01/24/21 01/25/21 01/26/21 23:59 23:59 23:59 23:59 Intake Total 1040 / 1040 2338 / 2338 1739 / 1739 2769 / 2769 Output Total 675 / 675 5150 / 5150 303 / 303 Balance 365 / 365 -2812 / -2812 1436 / 1436 2769 / 2769 Physical Exam Oriented: Normal Ear: Normal Nose: Normal Throat: Normal Respiratory: Generalized, Diminished and Rhonchi Cardiovascular: Edema (trace LE edema ) and Other (PACE MAKER PRESENT) Auscultation: Bowel Sounds: Normal Tenderness: Normal Skin: Decreased Turgur Musculoskeletal: Right, Left and Motor Deficit Psychiatric: Normal Mood Description: Calm Affect: Normal Speech Pattern: Clear and Appropriate Laboratory and Diagnostics Result Diagrams: 01/26/21 11:45 01/26/21 11:45 Labs: 01/24/21 09:30 Urine,Clean Catch Urine Culture - Final Laboratory WBC 10.2 X10^3/uL (3.6-10.0) H 01/26/21 11:45 RBC 3.26 X10^6/uL (4.7-6.0) L 01/26/21 11:45 Hgb 10.3 g/dL (13.5-18.0) L 01/26/21 11:45 Hct 30.1 % (42.0-54.0) L 01/26/21 11:45 MCV 92.4 fL (80.0-100.0) 01/26/21 11:45 MCH 31.7 pg (27.0-34.0) 01/26/21 11:45 MCHC 34.3 g/dL (33.0-35.0) 01/26/21 11:45 RDW 14.4 % (11.6-16.5) 01/26/21 11:45 Plt Count 87 X10^3/uL (150.0-450.0) L 01/26/21 11:45 Plt Count Comment Decreased (ADEQUATE) 01/25/21 09:28 MPV 10.4 fL (7.4-11.0) 01/26/21 11:45 Neut % (Auto) 84.6 % (42.0-75.0) H 01/26/21 11:45 Lymph % (Auto) 9.7 % (21.0-51.0) L 01/26/21 11:45 [place] % (Auto) 5.6 % (0.0-13.0) 01/26/21 11:45 Eos % (Auto) 0.1 % (0.9-2.9) L 01/26/21 11:45 Baso % (Auto) 0 % (0.2-1.0) L 01/26/21 11:45 Neut # (Auto) 8.7 x10^3/uL (2.2-4.8) H 01/26/21 11:45 Lymph # (Auto) 1.0 X10^3/uL (1.3-2.9) L 01/26/21 11:45 [place] # (Auto) 0.6 x10^3/uL (0.3-0.8) 01/26/21 11:45 Eos # (Auto) 0.0 x10^3/uL (0.0-0.2) 01/26/21 11:45 Baso # (Auto) 0.0 X10^3/uL (0.0-0.1) 01/26/21 11:45 Absolute Nucleated RBC 0.1 /100WBC 01/26/21 11:45 Total Counted 100 01/25/21 09:28 Neutrophils % (Manual) 89 % (39-76) H 01/25/21 09:28 Band Neutrophils % 3 % (0-10) 01/25/21 09:28 Lymphocytes % (Manual) 3 % (13-43) L 01/25/21 09:28 Monocytes % (Manual) 4 % (4-9) 01/25/21 09:28 Eosinophils % (Manual) 1 % (0-6) 01/25/21 09:28 Plt Morphology Comment Normal (NORMAL) 01/25/21 09:28 RBC Morphology Normal (NORMAL) 01/25/21 09:28 PT 14.9 SECONDS (11.8-14.3) 01/24/21 05:40 INR Target Range - 01/24/21 05:40 INR 1.22 (0.8-1.3) 01/24/21 05:40 APTT 43.3 SECONDS (22.9-36.5) H 01/24/21 05:40 PTT Comment - 01/24/21 05:40 Sample Site Rr 01/24/21 03:55 ABG pH 7.400 (7.35-7.45) 01/24/21 03:55 ABG pCO2 56.0 mmHg (35.0-45.0) H* 01/24/21 03:55 ABG pO2 104.0 mmHg (80.0-100.0) H 01/24/21 03:55 ABG HCO3 34.7 mmol/L (22-26) H* 01/24/21 03:55 ABG O2 Saturation 98.0 % (90-100) 01/24/21 03:55 ABG Base Excess 8.2 mmol/L (-2.0-2.0) H 01/24/21 03:55 Romain Test Pos 01/24/21 03:55 A-a Gradient -24.0 mmHg 01/24/21 03:55 FiO2 21.0 01/24/21 03:55 Blood Gas Comments Marianne well ae 01/24/21 03:55 Sodium 143 mmol/L (136-145) 01/26/21 11:45 Corrected Sodium 144 mmol/L (136-145) 01/26/21 11:45 Potassium 4.4 mmol/L (3.5-5.1) 01/26/21 11:45 Chloride 105 mmol/L (98-107) 01/26/21 11:45 Carbon Dioxide 36.6 mmol/L (21-32) H 01/26/21 11:45 BUN 18 mg/dL (7-18) 01/26/21 11:45 Creatinine 1.06 mg/dL (0.70-1.30) 01/26/21 11:45 Est GFR (MDRD) Af Amer > 60 (>60) 01/26/21 11:45 Est GFR (MDRD) Non-Af > 60 (>60) 01/26/21 11:45 Glucose 124 mg/dL (65-99) H 01/26/21 11:45 Lactic Acid 0.7 mmol/L (0.4-2.0) 01/23/21 10:53 Calcium 8.2 mg/dL (8.5-10.1) L 01/26/21 11:45 Corrected Calcium 9.3 mg/dL (8.5-10.1) 01/25/21 09:28 Magnesium 1.6 mg/dL (1.7-2.9) L 01/24/21 05:40 Total Bilirubin 0.30 mg/dL (0.2-1.0) 01/25/21 09:28 AST 22 Units/L (15-37) 01/25/21 09:28 ALT 24 Units/L (12-78) 01/25/21 09:28 Alkaline Phosphatase 51 Units/L (46-116) 01/25/21 09:28 Creatine Kinase 363 Units/L (39-308) H 01/23/21 12:45 CK-MB (CK-2) 3.8 ng/mL (0-4.0) 01/23/21 12:45 CK/CKMB % Calc 1.1 % (<4) 01/23/21 12:45 Troponin I < 0.02 ng/mL (0-1.5) 01/23/21 12:45 Total Protein 6.0 g/dL (6.4-8.2) L 01/25/21 09:28 Albumin 2.7 g/dL (3.4-5.0) L 01/25/21 09:28 Globulin 3.3 g/dL (2.5-4.5) 01/25/21 09:28 Albumin/Globulin Ratio 0.8 Ratio (1.1-2.1) L 01/25/21 09:28 Specimen Type Catherized urine 01/23/21 15:24 Urine Color Leni (YELLOW) 01/23/21 15:24 Urine Appearance Hazy (CLEAR) 01/23/21 15:24 Urine pH 5.0 (5.0 - 8.0) 01/23/21 15:24 Ur Specific [place] 1.020 (1.000-1.030) 01/23/21 15:24 Urine Protein 1+ (NEGATIVE) 01/23/21 15:24 Urine Glucose (UA) Negative (NEGATIVE) 01/23/21 15:24 Urine Ketones 1+ (NEGATIVE) 01/23/21 15:24 Urine Occult Blood 5+ (NEGATIVE) 01/23/21 15:24 Urine Nitrite Negative (NEGATIVE) 01/23/21 15:24 Urine Bilirubin Negative (NEGATIVE) 01/23/21 15:24 Urine Urobilinogen Normal (NORMAL) 01/23/21 15:24 Ur Leukocyte Esterase Negative (NEGATIVE) 01/23/21 15:24 Urine RBC 30-50 /HPF (0-3) A 01/23/21 15:24 Urine WBC 0-2 /HPF (0-5) 01/23/21 15:24 Ur Squamous Epith Cells Negative /HPF (NEGATIVE) 01/23/21 15:24 Ur Transition Epith Cell Rare /HPF (NEGATIVE) 01/23/21 15:24 Urine Bacteria Trace /HPF (NEGATIVE) 01/23/21 15:24 Granular Casts Rare /LPF (NEGATIVE) 01/23/21 15:24 Urine Mucus Rare /HPF (NEGATIVE) 01/23/21 15:24 Ur Culture Indicated? No/not indicated 01/23/21 15:24 SARS-CoV-2 (PCR) Negative (NEGATIVE) 01/23/21 03:10 Influenza Type A (PCR) Negative (NEGATIVE) 01/23/21 03:10 Influenza Type B (PCR) Negative (NEGATIVE) 01/23/21 03:10 RSV (PCR) Negative (NEGATIVE) 01/23/21 03:10 SARS CoV-2 RNA Rapid CAMRYN Negative (NEGATIVE) 01/22/21 21:05 Plan (1) AMS (altered mental status): Status: Acute Qualifiers: Altered mental status type: disorientation Qualified Code(s): R41.0 - Disorientation, unspecified (2) Pneumonia: Status: Acute Qualifiers: Laterality: right Lung location: middle lobe of lung Pneumonia type: due to unspecified organism Qualified Code(s): J18.9 - Pneumonia, unspecified organism (3) GERD (gastroesophageal reflux disease): Status: Acute Qualifiers: Esophagitis presence: esophagitis presence not specified Qualified Code(s): K21.9 - Gastro-esophageal reflux disease without esophagitis (4) CHF (congestive heart failure): Status: Acute Qualifiers: Heart failure chronicity: unspecified Heart failure type: unspecified Qualified Code(s): I50.9 - Heart failure, unspecified (5) Diabetes mellitus: Status: Acute Qualifiers: Diabetes mellitus complication status: without complication Diabetes mellitus usp insulin use: without usp use Diabetes mellitus type: type 2 Qualified Code(s): E11.9 - Type 2 diabetes mellitus without complications (6) COPD exacerbation: Status: Acute
[2021-01-26] MEDS: SINEquan PO SCH (21:47)
[2021-01-26] MEDS: COLACE CAP 100 MG PO SCH (21:47)
[2021-01-27] MEDS: NORCO 10/325 TAB PO PRN ×2 (01:56→23:40)
[2021-01-27 06:27] LABS: ALANINE AMINOTRANSFERASE 32 Units/L (12-78); ALBUMIN 2.7 g/dL (3.4-5.0); ALKALINE PHOSPHATASE 45 Units/L (46-116); ASPARTATE AMINO TRANSFERASE 27 Units/L (15-37); BLOOD UREA NITROGEN 14 mg/dL (7-18); CARBON DIOXIDE 34.1 mmol/L (21-32); CHLORIDE 106 mmol/L (98-107); CREATINE KINASE 105 Units/L (39-308); CREATININE 1.05 mg/dL (0.70-1.30); SODIUM 142 mmol/L (136-145); TOTAL PROTEIN 5.4 g/dL (6.4-8.2); eGFR NON BLACK RACES > 60 (>60)
[2021-01-27 06:35] LABS: BASOPHILS % (AUTO) 0.1 % (0.2-1.0); EOSINOPHILS # (AUTO) 0.2 x10^3/uL (0.0-0.2); EOSINOPHILS % (AUTO) 2.2 % (0.9-2.9); HEMATOCRIT 29.5 % (42.0-54.0); LYMPHOCYTES # (AUTO) 1.9 X10^3/uL (1.3-2.9); LYMPHOCYTES % (AUTO) 20.1 % (21.0-51.0); MEAN CORPUSCULAR HEMOGLOBIN 31.4 pg (27.0-34.0); MEAN CORPUSCULAR HGB CONC 33.8 g/dL (33.0-35.0); MEAN CORPUSCULAR VOLUME 92.8 fL (80.0-100.0); MEAN PLATELET VOLUME 10.4 fL (7.4-11.0); MONOCYTES # (AUTO) 0.8 x10^3/uL (0.3-0.8); MONOCYTES % (AUTO) 8.8 % (0.0-13.0); NEUTROPHILS # (AUTO) 6.5 x10^3/uL (2.2-4.8); NEUTROPHILS % (AUTO) 68.8 % (42.0-75.0); PLATELET COUNT 85 X10^3/uL (150.0-450.0); RED BLOOD COUNT 3.17 X10^6/uL (4.7-6.0); WHITE BLOOD COUNT 9.4 X10^3/uL (3.6-10.0)
[2021-01-27] MEDS: LASIX PO SCH (08:35)
[2021-01-27] MEDS: ROCEPHIN VIAL 1 GRAM 1 G in NS 100 ML IV + SPIKE MINIBAG* 100 ML IV SCH (08:36)
[2021-01-27] MEDS: ZYLOPRIM PO SCH (08:36)
[2021-01-27] MEDS: LYRICA CAP 150 mg PO SCH ×2 (08:36→21:00)
[2021-01-27] MEDS: REQUIP PO SCH ×2 (08:36→21:00)
[2021-01-27] MEDS: DUONEB 0.5 MG/3 MG (3 mL) NEB SCH ×4 (09:00→21:12)
[2021-01-27] MEDS: NexIUM PO SCH (09:30)
[2021-01-27] MEDS: NS 1000 ML 1,000 ML IV SCH (12:22)
[2021-01-27] MEDS ORDERED: SOLU-Medrol 40 MG VIAL IVP SCH (16:00)
--- NOTE | 2021-01-27 16:04 | PCM.PROG ---
Progress Note Progress Note for Day of Date of Exam: 01/27/21 Subjective Subjective: Patient seen at bedside. He states he is feeling better. He still has some wheezing. He has been ambulating to the bathroom. He is currently being treated for AMS, acute rhabdomyolysis, CHF exacerbation and pneumonia. He is currently on 2L NC. He does use O2 at home. He reports eating well. Labs: WBC 9.4 Hgb: 10 Plt 85 BUN/Cr: 14/1.05 Glucose 104 Total Ck: normal CXR: chronic changes, atelectasis noted, no effusions Plan: Continue current treatment with IV Rocephin. Will add solumedrol. Continue lasix. Will DC IVF. Wean O2 as tolerated. Continue nebs. Continue home medications. Possible discharge tomorrow. Monitor AM labs/imaging. Past Medical Family Social History Past Med/Fam/Surg Hx: No changes since H&P Allergies: Allergies codeine Allergy (Verified 02/09/20 18:16) iodine Allergy (Verified 02/09/20 18:16) Review of Systems ROS: No change since H&P Vital Signs and I&O's Vital Signs: Temperature 98.1 F Pulse Rate [Apical] 72 Pulse Rate 72 Respiratory Rate 19 Blood Pressure [Right Arm] 143/65 Blood Pressure [Left Arm] 140/65 Blood Pressure 139/63 O2 Sat by Pulse Oximetry 98 Intake and Output: Intake & Output 01/24/21 01/25/21 01/26/21 01/27/21 23:59 23:59 23:59 23:59 Intake Total 2338 / 2338 1739 / 1739 3402 / 3402 1212 / 1212 Output Total 5150 / 5150 303 / 303 350 / 350 2100 / 2100 Balance -2812 / -2812 1436 / 1436 3052 / 3052 -888 / -888 Physical Exam Oriented: Normal Ear: Normal Nose: Normal Throat: Normal Respiratory: Generalized, Diminished and Wheezes Cardiovascular: Edema (trace LE edema ) and Other (PACE MAKER PRESENT) Auscultation: Bowel Sounds: Normal Tenderness: Normal Skin: Decreased Turgur Musculoskeletal: Right, Left and Motor Deficit Psychiatric: Normal Mood Description: Calm Affect: Normal Speech Pattern: Clear and Appropriate Laboratory and Diagnostics Result Diagrams: 01/27/21 05:34 01/27/21 05:34 Labs: 01/26/21 08:15 Sputum - Expectorated Sputum Sputum Culture - Preliminary 01/26/21 08:15 Sputum - Expectorated Sputum - Final 01/24/21 09:30 Urine,Clean Catch Urine Culture - Final Laboratory WBC 9.4 X10^3/uL (3.6-10.0) 01/27/21 05:34 RBC 3.17 X10^6/uL (4.7-6.0) L 01/27/21 05:34 Hgb 10.0 g/dL (13.5-18.0) L 01/27/21 05:34 Hct 29.5 % (42.0-54.0) L 01/27/21 05:34 MCV 92.8 fL (80.0-100.0) 01/27/21 05:34 MCH 31.4 pg (27.0-34.0) 01/27/21 05:34 MCHC 33.8 g/dL (33.0-35.0) 01/27/21 05:34 RDW 14.0 % (11.6-16.5) 01/27/21 05:34 Plt Count 85 X10^3/uL (150.0-450.0) L 01/27/21 05:34 Plt Count Comment Decreased (ADEQUATE) 01/25/21 09:28 MPV 10.4 fL (7.4-11.0) 01/27/21 05:34 Neut % (Auto) 68.8 % (42.0-75.0) 01/27/21 05:34 Lymph % (Auto) 20.1 % (21.0-51.0) L 01/27/21 05:34 [place] % (Auto) 8.8 % (0.0-13.0) 01/27/21 05:34 Eos % (Auto) 2.2 % (0.9-2.9) 01/27/21 05:34 Baso % (Auto) 0.1 % (0.2-1.0) L 01/27/21 05:34 Neut # (Auto) 6.5 x10^3/uL (2.2-4.8) H 01/27/21 05:34 Lymph # (Auto) 1.9 X10^3/uL (1.3-2.9) 01/27/21 05:34 [place] # (Auto) 0.8 x10^3/uL (0.3-0.8) 01/27/21 05:34 Eos # (Auto) 0.2 x10^3/uL (0.0-0.2) 01/27/21 05:34 Baso # (Auto) 0.0 X10^3/uL (0.0-0.1) 01/27/21 05:34 Absolute Nucleated RBC 0.1 /100WBC 01/27/21 05:34 Total Counted 100 01/25/21 09:28 Neutrophils % (Manual) 89 % (39-76) H 01/25/21 09:28 Band Neutrophils % 3 % (0-10) 01/25/21 09:28 Lymphocytes % (Manual) 3 % (13-43) L 01/25/21 09:28 Monocytes % (Manual) 4 % (4-9) 01/25/21 09:28 Eosinophils % (Manual) 1 % (0-6) 01/25/21 09:28 Plt Morphology Comment Normal (NORMAL) 01/25/21 09:28 RBC Morphology Normal (NORMAL) 01/25/21 09:28 PT 14.9 SECONDS (11.8-14.3) 01/24/21 05:40 INR Target Range - 01/24/21 05:40 INR 1.22 (0.8-1.3) 01/24/21 05:40 APTT 43.3 SECONDS (22.9-36.5) H 01/24/21 05:40 PTT Comment - 01/24/21 05:40 Sample Site Rr 01/24/21 03:55 ABG pH 7.400 (7.35-7.45) 01/24/21 03:55 ABG pCO2 56.0 mmHg (35.0-45.0) H* 01/24/21 03:55 ABG pO2 104.0 mmHg (80.0-100.0) H 01/24/21 03:55 ABG HCO3 34.7 mmol/L (22-26) H* 01/24/21 03:55 ABG O2 Saturation 98.0 % (90-100) 01/24/21 03:55 ABG Base Excess 8.2 mmol/L (-2.0-2.0) H 01/24/21 03:55 Romain Test Pos 01/24/21 03:55 A-a Gradient -24.0 mmHg 01/24/21 03:55 FiO2 21.0 01/24/21 03:55 Blood Gas Comments Marianne well ae 01/24/21 03:55 Sodium 142 mmol/L (136-145) 01/27/21 05:34 Corrected Sodium TNP 01/27/21 05:34 Potassium 3.9 mmol/L (3.5-5.1) 01/27/21 05:34 Chloride 106 mmol/L (98-107) 01/27/21 05:34 Carbon Dioxide 34.1 mmol/L (21-32) H 01/27/21 05:34 BUN 14 mg/dL (7-18) 01/27/21 05:34 Creatinine 1.05 mg/dL (0.70-1.30) 01/27/21 05:34 Est GFR (MDRD) Af Amer > 60 (>60) 01/27/21 05:34 Est GFR (MDRD) Non-Af > 60 (>60) 01/27/21 05:34 Glucose 104 mg/dL (65-99) H 01/27/21 05:34 Lactic Acid 0.7 mmol/L (0.4-2.0) 01/23/21 10:53 Calcium 8.0 mg/dL (8.5-10.1) L 01/27/21 05:34 Corrected Calcium 9.0 mg/dL (8.5-10.1) 01/27/21 05:34 Magnesium 1.6 mg/dL (1.7-2.9) L 01/24/21 05:40 Total Bilirubin 0.30 mg/dL (0.2-1.0) 01/27/21 05:34 AST 27 Units/L (15-37) 01/27/21 05:34 ALT 32 Units/L (12-78) 01/27/21 05:34 Alkaline Phosphatase 45 Units/L (46-116) L 01/27/21 05:34 Creatine Kinase 105 Units/L (39-308) 01/27/21 05:34 CK-MB (CK-2) 3.8 ng/mL (0-4.0) 01/23/21 12:45 CK/CKMB % Calc 1.1 % (<4) 01/23/21 12:45 Troponin I < 0.02 ng/mL (0-1.5) 01/23/21 12:45 Total Protein 5.4 g/dL (6.4-8.2) L 01/27/21 05:34 Albumin 2.7 g/dL (3.4-5.0) L 01/27/21 05:34 Globulin 2.7 g/dL (2.5-4.5) 01/27/21 05:34 Albumin/Globulin Ratio 1.0 Ratio (1.1-2.1) L 01/27/21 05:34 Specimen Type Catherized urine 01/23/21 15:24 Urine Color Leni (YELLOW) 01/23/21 15:24 Urine Appearance Hazy (CLEAR) 01/23/21 15:24 Urine pH 5.0 (5.0 - 8.0) 01/23/21 15:24 Ur Specific [place] 1.020 (1.000-1.030) 01/23/21 15:24 Urine Protein 1+ (NEGATIVE) 01/23/21 15:24 Urine Glucose (UA) Negative (NEGATIVE) 01/23/21 15:24 Urine Ketones 1+ (NEGATIVE) 01/23/21 15:24 Urine Occult Blood 5+ (NEGATIVE) 01/23/21 15:24 Urine Nitrite Negative (NEGATIVE) 01/23/21 15:24 Urine Bilirubin Negative (NEGATIVE) 01/23/21 15:24 Urine Urobilinogen Normal (NORMAL) 01/23/21 15:24 Ur Leukocyte Esterase Negative (NEGATIVE) 01/23/21 15:24 Urine RBC 30-50 /HPF (0-3) A 01/23/21 15:24 Urine WBC 0-2 /HPF (0-5) 01/23/21 15:24 Ur Squamous Epith Cells Negative /HPF (NEGATIVE) 01/23/21 15:24 Ur Transition Epith Cell Rare /HPF (NEGATIVE) 01/23/21 15:24 Urine Bacteria Trace /HPF (NEGATIVE) 01/23/21 15:24 Granular Casts Rare /LPF (NEGATIVE) 01/23/21 15:24 Urine Mucus Rare /HPF (NEGATIVE) 01/23/21 15:24 Ur Culture Indicated? No/not indicated 01/23/21 15:24 SARS-CoV-2 (PCR) Negative (NEGATIVE) 01/23/21 03:10 Influenza Type A (PCR) Negative (NEGATIVE) 01/23/21 03:10 Influenza Type B (PCR) Negative (NEGATIVE) 01/23/21 03:10 RSV (PCR) Negative (NEGATIVE) 01/23/21 03:10 SARS CoV-2 RNA Rapid CAMRYN Negative (NEGATIVE) 01/22/21 21:05 Plan (1) AMS (altered mental status): Status: Acute Qualifiers: Altered mental status type: disorientation Qualified Code(s): R41.0 - Disorientation, unspecified (2) Pneumonia: Status: Acute Qualifiers: Laterality: right Lung location: middle lobe of lung Pneumonia type: due to unspecified organism Qualified Code(s): J18.9 - Pneumonia, unspecified organism (3) GERD (gastroesophageal reflux disease): Status: Acute Qualifiers: Esophagitis presence: esophagitis presence not specified Qualified Code(s): K21.9 - Gastro-esophageal reflux disease without esophagitis (4) CHF (congestive heart failure): Status: Acute Qualifiers: Heart failure chronicity: unspecified Heart failure type: unspecified Qualified Code(s): I50.9 - Heart failure, unspecified (5) Diabetes mellitus: Status: Acute Qualifiers: Diabetes mellitus complication status: without complication Diabetes mellitus halfway insulin use: without halfway use Diabetes mellitus type: type 2 Qualified Code(s): E11.9 - Type 2 diabetes mellitus without complications (6) COPD exacerbation: Status: Acute
[2021-01-27] MEDS: COLACE CAP 100 MG PO SCH (21:00)
[2021-01-27] MEDS: PREDNISONE TAB 20 MG PO SCH (21:00)
[2021-01-27] MEDS: SINEquan PO SCH (21:00)
[2021-01-28 06:48] LABS: BASOPHILS % (AUTO) 0 % (0.2-1.0); HEMATOCRIT 32.1 % (42.0-54.0); HEMOGLOBIN 10.9 g/dL (13.5-18.0); LYMPHOCYTES # (AUTO) 0.6 X10^3/uL (1.3-2.9); LYMPHOCYTES % (AUTO) 6.8 % (21.0-51.0); MEAN CORPUSCULAR HEMOGLOBIN 31.1 pg (27.0-34.0); MEAN CORPUSCULAR HGB CONC 33.9 g/dL (33.0-35.0); MEAN CORPUSCULAR VOLUME 91.9 fL (80.0-100.0); MEAN PLATELET VOLUME 10.2 fL (7.4-11.0); MONOCYTES # (AUTO) 0.2 x10^3/uL (0.3-0.8); MONOCYTES % (AUTO) 2.4 % (0.0-13.0); NEUTROPHILS # (AUTO) 7.4 x10^3/uL (2.2-4.8); NEUTROPHILS % (AUTO) 90.8 % (42.0-75.0); PLATELET COUNT 111 X10^3/uL (150.0-450.0); RED CELL DISTRIBUTION WIDTH 14.6 % (11.6-16.5); WHITE BLOOD COUNT 8.2 X10^3/uL (3.6-10.0)
[2021-01-28 07:20] LABS: BLOOD UREA NITROGEN 14 mg/dL (7-18); CALCIUM 8.6 mg/dL (8.5-10.1); CARBON DIOXIDE 35.9 mmol/L (21-32); CHLORIDE 102 mmol/L (98-107); COR NA(FOR HYPERGLY) 141 mmol/L (136-145); SODIUM 141 mmol/L (136-145); eGFR NON BLACK RACES > 60 (>60)
[2021-01-28 07:40] LABS: BAND NEUTROPHILS % 1 % (0-10); PLATELET MORPHOLOGY COMMENT NORMAL (NORMAL)
[2021-01-28] MEDS: LASIX PO SCH (08:30)
[2021-01-28] MEDS: ZYLOPRIM PO SCH (08:31)
[2021-01-28] MEDS: LYRICA CAP 150 mg PO SCH (08:31)
[2021-01-28] MEDS: ROCEPHIN VIAL 1 GRAM 1 G in NS 100 ML IV + SPIKE MINIBAG* 100 ML IV SCH (08:31)
[2021-01-28] MEDS: DUONEB 0.5 MG/3 MG (3 mL) NEB SCH ×2 (09:14→12:33)
[2021-01-28] MEDS: NexIUM PO SCH ×2 (09:31→10:57)
[2021-01-28] MEDS: PREDNISONE TAB 20 MG PO SCH ×2 (09:31→10:55)
[2021-01-28] MEDS: REQUIP PO SCH (09:31)
--- NOTE | 2021-01-28 11:28 | RAD ---
HISTORYCHF COPDSTUDYPortable AP [id number] size normal with pacing device. A few scattered linear densities in the left base are consistent with fibrosis. No airspace consolidation, edema, or pneumothorax seen.IMPRESSIONNo change. Findings described consistent with mild stable fibrotic scarring left lower lung.Electronically signed by: CLAIRE LR (Jan 28, 2021 11:27:10)
[2021-01-28 12:06] VITALS: BP 141/65
--- NOTE | 2021-01-28 12:10 | W.DIS.FURT ---
Summary of Discharge Discharge Summary of Date Date of Exam: 01/28/21 Admission Date Date of Admission: 01/23/21 Admission Diagnosis Patient Problems (Updated 02/06/21 @ 14:28 by Jocelyne Gamez) Pneumonia (Acute) J18.9 GERD (gastroesophageal reflux disease) (Chronic) K21.9 Generalized weakness (Chronic) R53.1 Fever in adult (Acute) R50.9 AMS (altered mental status) (Acute) R41.82 Diabetes mellitus (Chronic) E11.9 COPD exacerbation (Acute) J44.1 Hospital Course: Mr Arambula is a 85y/o male with a PMH of COPD, CHF, HTN and CAD presented with new onset confusion, fever and increased SOB. He tested negative for COVID-19. CT- head done on admission did not show acute CVA. Patient was found to have fluid overload and was admitted for CHF exacerbation, COPD and pneumonia. His mental status improved and he was alert and oriented. He was requiring his baseline home o2. Initially, patient was hypotensive and also had elevated CK so did require some gentle hydration but also received intermittent doses of lasix for diuresis. He was also started on duonebs and steroids due to COPD exacerbation. He also received antibiotics. His respiratory status and leg edema improved. He was stable for discharge home on baseline home O2 of 2L. He will follow up with PCP as scheduled. Vital Signs: Vital Signs (72 hours) 01/25/21 16:00 01/25/21 20:00 01/25/21 20:32 Temperature 97.9 F 97.5 F L Pulse Rate 66 Pulse Rate [Apical] 74 80 Respiratory Rate 22 20 Blood Pressure [Left Arm] Blood Pressure [Right Arm] 116/57 139/69 O2 Sat by Pulse Oximetry 91 L 95 93 L 01/25/21 22:53 01/25/21 23:53 01/26/21 00:00 Temperature 97.0 F L Pulse Rate Pulse Rate [Apical] 82 Respiratory Rate 20 20 20 Blood Pressure [Left Arm] Blood Pressure [Right Arm] 132/64 O2 Sat by Pulse Oximetry 98 01/26/21 04:00 01/26/21 08:00 01/26/21 09:35 Temperature 97.6 F 97.7 F Pulse Rate 85 Pulse Rate [Apical] 86 85 Respiratory Rate 22 20 Blood Pressure [Left Arm] Blood Pressure [Right Arm] 128/66 151/71 O2 Sat by Pulse Oximetry 99 95 95 01/26/21 12:00 01/26/21 16:00 01/26/21 16:30 Temperature 97.6 F 97.7 F Pulse Rate 74 Pulse Rate [Apical] 74 86 Respiratory Rate 20 20 Blood Pressure [Left Arm] Blood Pressure [Right Arm] 135/98 169/70 O2 Sat by Pulse Oximetry 97 97 97 01/26/21 20:00 01/26/21 20:50 01/26/21 23:34 Temperature 97.1 F L 98.2 F Pulse Rate 59 L Pulse Rate [Apical] 76 81 Respiratory Rate 22 22 Blood Pressure [Left Arm] Blood Pressure [Right Arm] 138/61 132/65 O2 Sat by Pulse Oximetry 98 96 99 01/27/21 01:56 01/27/21 02:56 01/27/21 03:52 Temperature 97.9 F Pulse Rate Pulse Rate [Apical] 81 Respiratory Rate 22 22 24 Blood Pressure [Left Arm] Blood Pressure [Right Arm] 126/61 O2 Sat by Pulse Oximetry 97 01/27/21 08:00 01/27/21 09:00 01/27/21 12:00 Temperature 98.3 F 98.1 F Pulse Rate 76 Pulse Rate [Apical] 85 72 Respiratory Rate 19 19 Blood Pressure [Left Arm] 140/65 Blood Pressure [Right Arm] 143/65 O2 Sat by Pulse Oximetry 97 96 98 01/27/21 13:50 01/27/21 16:00 01/27/21 16:50 Temperature 98.8 F Pulse Rate 72 71 Pulse Rate [Apical] 76 Respiratory Rate 22 Blood Pressure [Left Arm] Blood Pressure [Right Arm] 145/65 O2 Sat by Pulse Oximetry 98 96 95 01/27/21 20:00 01/27/21 21:13 01/27/21 23:40 Temperature 99.2 F Pulse Rate 79 Pulse Rate [Apical] 75 Respiratory Rate 20 22 Blood Pressure [Left Arm] Blood Pressure [Right Arm] 171/72 O2 Sat by Pulse Oximetry 96 97 01/27/21 23:44 01/28/21 00:40 01/28/21 03:50 Temperature 98.9 F 98.6 F Pulse Rate Pulse Rate [Apical] 81 77 Respiratory Rate 24 22 18 Blood Pressure [Left Arm] Blood Pressure [Right Arm] 179/74 135/64 O2 Sat by Pulse Oximetry 97 92 L 01/28/21 07:23 01/28/21 08:33 01/28/21 09:14 Temperature 98.3 F Pulse Rate 93 H Pulse Rate [Apical] 90 Respiratory Rate 21 Blood Pressure [Left Arm] Blood Pressure [Right Arm] 149/67 O2 Sat by Pulse Oximetry 94 L 95 01/28/21 12:00 Temperature 98.7 F Pulse Rate Pulse Rate [Apical] 83 Respiratory Rate 20 Blood Pressure [Left Arm] Blood Pressure [Right Arm] 141/65 O2 Sat by Pulse Oximetry 94 L Labs: Laboratory Last Values WBC 8.2 X10^3/uL (3.6-10.0) 01/28/21 06:17 RBC 3.50 X10^6/uL (4.7-6.0) L 01/28/21 06:17 Hgb 10.9 g/dL (13.5-18.0) L 01/28/21 06:17 Hct 32.1 % (42.0-54.0) L 01/28/21 06:17 MCV 91.9 fL (80.0-100.0) 01/28/21 06:17 MCH 31.1 pg (27.0-34.0) 01/28/21 06:17 MCHC 33.9 g/dL (33.0-35.0) 01/28/21 06:17 RDW 14.6 % (11.6-16.5) 01/28/21 06:17 Plt Count 111 X10^3/uL (150.0-450.0) L 01/28/21 06:17 Plt Count Comment Decreased (ADEQUATE) 01/28/21 06:17 MPV 10.2 fL (7.4-11.0) 01/28/21 06:17 Neut % (Auto) 90.8 % (42.0-75.0) H 01/28/21 06:17 Lymph % (Auto) 6.8 % (21.0-51.0) L 01/28/21 06:17 [place] % (Auto) 2.4 % (0.0-13.0) 01/28/21 06:17 Eos % (Auto) 0.0 % (0.9-2.9) L 01/28/21 06:17 Baso % (Auto) 0 % (0.2-1.0) L 01/28/21 06:17 Neut # (Auto) 7.4 x10^3/uL (2.2-4.8) H 01/28/21 06:17 Lymph # (Auto) 0.6 X10^3/uL (1.3-2.9) L 01/28/21 06:17 [place] # (Auto) 0.2 x10^3/uL (0.3-0.8) L 01/28/21 06:17 Eos # (Auto) 0.0 x10^3/uL (0.0-0.2) 01/28/21 06:17 Baso # (Auto) 0.0 X10^3/uL (0.0-0.1) 01/28/21 06:17 Absolute Nucleated RBC 0.0 /100WBC 01/28/21 06:17 Total Counted 100 01/28/21 06:17 Neutrophils % (Manual) 93 % (39-76) H 01/28/21 06:17 Band Neutrophils % 1 % (0-10) 01/28/21 06:17 Lymphocytes % (Manual) 6 % (13-43) L 01/28/21 06:17 Monocytes % (Manual) 4 % (4-9) 01/25/21 09:28 Eosinophils % (Manual) 1 % (0-6) 01/25/21 09:28 Plt Morphology Comment Normal (NORMAL) 01/28/21 06:17 RBC Morphology Normal (NORMAL) 01/28/21 06:17 PT 14.9 SECONDS (11.8-14.3) 01/24/21 05:40 INR Target Range - 01/24/21 05:40 INR 1.22 (0.8-1.3) 01/24/21 05:40 APTT 43.3 SECONDS (22.9-36.5) H 01/24/21 05:40 PTT Comment - 01/24/21 05:40 Sample Site Rr 01/24/21 03:55 ABG pH 7.400 (7.35-7.45) 01/24/21 03:55 ABG pCO2 56.0 mmHg (35.0-45.0) H* 01/24/21 03:55 ABG pO2 104.0 mmHg (80.0-100.0) H 01/24/21 03:55 ABG HCO3 34.7 mmol/L (22-26) H* 01/24/21 03:55 ABG O2 Saturation 98.0 % (90-100) 01/24/21 03:55 ABG Base Excess 8.2 mmol/L (-2.0-2.0) H 01/24/21 03:55 Romain Test Pos 01/24/21 03:55 A-a Gradient -24.0 mmHg 01/24/21 03:55 FiO2 21.0 01/24/21 03:55 Blood Gas Comments Marianne well ae 01/24/21 03:55 Sodium 141 mmol/L (136-145) 01/28/21 06:17 Corrected Sodium 141 mmol/L (136-145) 01/28/21 06:17 Potassium 4.5 mmol/L (3.5-5.1) 01/28/21 06:17 Chloride 102 mmol/L (98-107) 01/28/21 06:17 Carbon Dioxide 35.9 mmol/L (21-32) H 01/28/21 06:17 BUN 14 mg/dL (7-18) 01/28/21 06:17 Creatinine 1.10 mg/dL (0.70-1.30) 01/28/21 06:17 Est GFR (MDRD) Af Amer > 60 (>60) 01/28/21 06:17 Est GFR (MDRD) Non-Af > 60 (>60) 01/28/21 06:17 Glucose 119 mg/dL (65-99) H 01/28/21 06:17 Lactic Acid 0.7 mmol/L (0.4-2.0) 01/23/21 10:53 Calcium 8.6 mg/dL (8.5-10.1) 01/28/21 06:17 Corrected Calcium 9.0 mg/dL (8.5-10.1) 01/27/21 05:34 Magnesium 1.6 mg/dL (1.7-2.9) L 01/24/21 05:40 Total Bilirubin 0.30 mg/dL (0.2-1.0) 01/27/21 05:34 AST 27 Units/L (15-37) 01/27/21 05:34 ALT 32 Units/L (12-78) 01/27/21 05:34 Alkaline Phosphatase 45 Units/L (46-116) L 01/27/21 05:34 Creatine Kinase 105 Units/L (39-308) 01/27/21 05:34 CK-MB (CK-2) 3.8 ng/mL (0-4.0) 01/23/21 12:45 CK/CKMB % Calc 1.1 % (<4) 01/23/21 12:45 Troponin I < 0.02 ng/mL (0-1.5) 01/23/21 12:45 Total Protein 5.4 g/dL (6.4-8.2) L 01/27/21 05:34 Albumin 2.7 g/dL (3.4-5.0) L 01/27/21 05:34 Globulin 2.7 g/dL (2.5-4.5) 01/27/21 05:34 Albumin/Globulin Ratio 1.0 Ratio (1.1-2.1) L 01/27/21 05:34 Specimen Type Catherized urine 01/23/21 15:24 Urine Color Leni (YELLOW) 01/23/21 15:24 Urine Appearance Hazy (CLEAR) 01/23/21 15:24 Urine pH 5.0 (5.0 - 8.0) 01/23/21 15:24 Ur Specific [place] 1.020 (1.000-1.030) 01/23/21 15:24 Urine Protein 1+ (NEGATIVE) 01/23/21 15:24 Urine Glucose (UA) Negative (NEGATIVE) 01/23/21 15:24 Urine Ketones 1+ (NEGATIVE) 01/23/21 15:24 Urine Occult Blood 5+ (NEGATIVE) 01/23/21 15:24 Urine Nitrite Negative (NEGATIVE) 01/23/21 15:24 Urine Bilirubin Negative (NEGATIVE) 01/23/21 15:24 Urine Urobilinogen Normal (NORMAL) 01/23/21 15:24 Ur Leukocyte Esterase Negative (NEGATIVE) 01/23/21 15:24 Urine RBC 30-50 /HPF (0-3) A 01/23/21 15:24 Urine WBC 0-2 /HPF (0-5) 01/23/21 15:24 Ur Squamous Epith Cells Negative /HPF (NEGATIVE) 01/23/21 15:24 Ur Transition Epith Cell Rare /HPF (NEGATIVE) 01/23/21 15:24 Urine Bacteria Trace /HPF (NEGATIVE) 01/23/21 15:24 Granular Casts Rare /LPF (NEGATIVE) 01/23/21 15:24 Urine Mucus Rare /HPF (NEGATIVE) 01/23/21 15:24 Ur Culture Indicated? No/not indicated 01/23/21 15:24 SARS-CoV-2 (PCR) Negative (NEGATIVE) 01/23/21 03:10 Influenza Type A (PCR) Negative (NEGATIVE) 01/23/21 03:10 Influenza Type B (PCR) Negative (NEGATIVE) 01/23/21 03:10 RSV (PCR) Negative (NEGATIVE) 01/23/21 03:10 SARS CoV-2 RNA Rapid CAMRYN Negative (NEGATIVE) 01/22/21 21:05 Reason For Visit: FEVER IN ADULT, LEUKOCYTOSIS, GENERALIZED WEAKNESS Discharge Date Discharge Date: 01/28/21 Discharge Diagnosis All Active Problems (Updated 02/06/21 @ 14:28 by Jocelyne Gamez) Pneumonia (Acute) Pleural effusion (Chronic) Fall (Acute) GERD (gastroesophageal reflux disease) (Chronic) Generalized weakness (Chronic) Fever in adult (Acute) AMS (altered mental status) (Acute) Hypokalemia (Acute) ROYA (acute kidney injury) (Acute) Diabetes (Chronic) Altered mental status (Acute) Hypoxia (Chronic) COPD (chronic obstructive pulmonary disease) (Chronic) Bilateral lower extremity edema (Chronic) Cardiomegaly (Chronic) Pulmonary edema cardiac cause (Chronic) Pedal edema (Chronic) Rheumatoid arthritis (Chronic) Diabetes mellitus (Chronic) A-fib (Chronic) CHF (congestive heart failure), NYHA class III (Chronic) Chronic GERD (Chronic) COPD exacerbation (Acute) Anemia (Chronic) Chronic cerebral ischemia (Chronic) Respiratory failure with hypercapnia (Chronic) Back pain (Chronic) Rheumatoid arthritis (Chronic) Fibromyalgia (Chronic) Irritable bowel syndrome with constipation (Chronic) Plan of Treatment: Continue with present treatment and follow up plan. Pt is to keep follow up appointment as instructed and take medications as ordered. Discharge Medications Discharge Medications: codeine Allergy (Verified 02/09/20 18:16) iodine Allergy (Verified 02/09/20 18:16) CONTINUE taking the following medications doxepin 10 mg PO HS 01/23/21 [History] esomeprazole magnesium 40 mg PO DAILY 01/23/21 [History] morphine 30 mg PO BID PRN 01/23/21 [History] New Prescriptions cefdinir 300 mg PO BID 5 Days #10 cap 01/28/21 [Rx] furosemide 20 mg PO QAM 30 Days #30 tab 01/28/21 [Rx] prednisone 40 mg PO DAILY 3 Days #6 tab 01/28/21 [Rx] Follow up and Referral Follow Up: 1 Week (PCP) Discharge Disposition Discharge Disposition: home Discharge Condition: stable Discharge Plan Discharge Plan Hospital Course: Mr Arambula is a 85y/o male with a PMH of COPD, CHF, HTN and CAD presented with new onset confusion, fever and increased SOB. He tested negative for COVID-19. CT- head done on admission did not show acute CVA. Patient was found to have fluid overload and was admitted for CHF exacerbation, COPD and pneumonia. His mental status improved and he was alert and oriented. He was requiring his baseline home o2. Initially, patient was hypotensive and also had elevated CK so did require some gentle hydration but also received intermittent doses of lasix for diuresis. He was also started on duonebs and steroids due to COPD exacerbation. He also received antibiotics. His respiratory status and leg edema improved. He was stable for discharge home on baseline home O2 of 2L. He will follow up with PCP as scheduled. Patient Disposition: 01 HOME, SELF-CARE Condition: Stable Health Concerns: Post Hospitalization: new medications and changes needed to prevent readmission or further decline. Pt educated and given instructions on all concerns. Plan of Treatment: Continue with present treatment and follow up plan. Pt is to keep follow up appointment as instructed and take medications as ordered. Prescription drug monitoring program results: PDMP reviewed and no concerns identified Prescriptions: New furosemide 20 mg tablet 20 mg PO QAM 30 Days Qty: 30 RF: 0 Continued furosemide [Lasix] 40 mg Tablet 40 mg PO DAILY RF: 0 hydrocodone-acetaminophen [Cohoes] 10-325 mg Tablet 10 - 325 mg PO Q6H PRN (Reason: Pain) RF: 0 ropinirole 2 mg Tablet 4 mg PO BID RF: 0 doxazosin 8 mg tablet 8 mg PO DAILY RF: 0 allopurinol 100 mg tablet 100 mg PO DAILY RF: 0 prednisone 5 mg tablet 5 mg PO DAILY RF: 0 morphine 30 mg tablet extended release 30 mg PO BID PRN (Reason: Pain) RF: 0 doxepin 10 mg capsule 10 mg PO HS RF: 0 esomeprazole magnesium 40 mg capsule,delayed release(DR/EC) 40 mg PO DAILY RF: 0 atorvastatin 20 mg Tablet 20 mg PO QHS RF: 0 metformin 1,000 mg tablet 1,000 mg PO BID RF: 0 Discontinued famotidine 40 mg tablet 40 mg PO BID RF: 0 Orders to Discharge Patient Discharge Orders: Discharge (Routine); Ordered 01/28/21 Ordered By: Jocelyne Gamez Follow ups/Referrals Follow ups/Referrals: YAMIL NOYOLA [Primary Care Provider] - 3 days Instructions Activity Restrictions/Additional Instructions: Take prednisone 20 mg (2 tabs) daily for 3 days and then restart taking home medication prednisone 5mg daily. Stand Alone Forms: Excuse From Work or School, Precautions for COVID19, Patient Portal, Social Distancing
== END 2021-01-28 13:15 | disposition home or self-care (01) ==
LOC: ER 19:28 → OBS 19:28
PROVIDERS: ADMIT Family Medicine; ATTEND Internal Medicine
DX: I50.43 Acute on chronic combined systolic (congestive) and diastolic (congestive) heart failure; I25.10 Atherosclerotic heart disease of native coronary artery without angina pectoris; R06.02 Shortness of breath; E86.0 Dehydration; Z95.0 Presence of cardiac pacemaker; R41.0 Disorientation, unspecified; E11.65 Type 2 diabetes mellitus with hyperglycemia; F41.8 Other specified anxiety disorders; R94.31 Abnormal electrocardiogram [ECG] [EKG]; Z20.822 Contact with and (suspected) exposure to COVID-19; J44.1 Chronic obstructive pulmonary disease with (acute) exacerbation; J18.8 Other pneumonia, unspecified organism; M62.82 Rhabdomyolysis

== ENCOUNTER 2021-03-26 14:04 | Inpatient (IN) ==
[2021-03-26] MEDS ORDERED: DUONEB 0.5 MG/3 MG (3 mL) NEB ONE ×3 (14:14→21:10)
[2021-03-26 14:25] LABS: ABG BASE EXCESS 2.8 mmol/L (-2.0-2.0); ABG HCO3 27.9 mmol/L (22-26)
[2021-03-26] MEDS ORDERED: OFIRMEV IV 1000 MG VIAL 1,000 MG/100 ML VIAL IV ONE ×2 (14:27→14:58)
--- NOTE | 2021-03-26 14:31 | DR.AMS ---
HPI Time Seen Time Seen by Provider: 03/26/21 14:26 COVID-19 Coronavirus risk:travel/contact w/high risk person: No Has patient experienced Coronavirus symptoms: Yes Coronavirus symptoms experienced: Fever and Shortness of Breath PMH PMH Past Medical History: Anxiety, Arthritis, COPD, Coronary Artery Disease, Diabetes, GERD, Gout, Hypertension and PUD Past Surgical History: Yes Surgical History: Tonsillectomy Family History Family Medical History: Diabetes Mellitus and Cancer Social History Do you use any recreational Drugs:: No Travel Risk Coronavirus risk:travel/contact w/high risk person: No Has patient experienced Coronavirus symptoms: Yes Coronavirus symptoms experienced: Fever and Shortness of Breath ROS Review of Systems Constitutional: No Symptoms Reported and See HPI Eyes: No Symptoms Reported and See HPI ENTM: No Symptoms Reported and See HPI Respiratoy: No Symptoms Reported and See HPI Cardiovascular: No Symptoms Reported and See HPI Gastrointestinal/Abdominal: No Symptoms Reported and See HPI Genitourinary: No Symptoms Reported and See HPI Neurological: No Symptoms Reported and See HPI Musculoskeletal: No Symptoms Reported and See HPI Integumentary: No Symptoms Reported and See HPI Hematologic/Lymphatic: No Symptoms Reported and See HPI Endocrine: No Symptoms Reported and See HPI Psychiatric: No Symptoms Reported and See HPI All Other Systems: Reviewed and Negative PE Vitals Vital Signs: Temp Pulse Resp BP BP Pulse Ox 03/26/21 19:15 83 32 H 84/42 92 L 03/26/21 19:00 80 21 95/48 84 L 03/26/21 18:46 82 29 H 83/42 92 L 03/26/21 18:45 81 25 H 92 L 03/26/21 18:32 84 24 92 L 03/26/21 18:30 75 26 H 74/39 92 L 03/26/21 18:00 89 17 82/45 93 L 03/26/21 17:30 94 H 19 87/46 93 L 03/26/21 17:00 99 H 22 85/41 99 03/26/21 16:31 97 H 20 70/31 92 L 03/26/21 16:05 100 H 22 77/37 99 03/26/21 15:30 98 H 24 76/38 92 L 03/26/21 14:30 113 H 24 102/54 91 L 03/26/21 14:05 103.2 F H 119 H 24 118/66 90 L 01/28/21 12:00 141/65 General Limitations: Language Barrier General Appearance: Alert Head Head Exam: Normal Inspection Eyes Eye exam: Normal Appearance ENT ENT Exam: Normal Exam External Ear Exam: Normal External Inspection Nose Exam: Normal Nose Exam Mouth Exam: Normal Inspection Throat Exam: Normal Inspection Neck Neck Exam: Normal Inspection Chest Chest Inspection: Normal Inspection Respiratory Respiratory Exam: Normal Lung Sounds Bilat Cardiovascular Cardiovascular Exam: Regular Rate and Normal Rhythm Abdominal Exam Abdominal Exam: Normal Inspection, Normal Bowel Sounds and Soft Extremities Extremities Exam: Normal Inspection Back Back Exam: Normal Inspection Neurological Neurological Exam: Alert and Oriented X3 Psychological Psychiatric Exam: Normal Affect and Normal Mood Skin Skin Exam: Warm, Dry, Intact and Normal Color ROR Labs Reviewed Result Diagrams: 03/29/21 05:05 03/29/21 05:05 Laboratory: 03/26/21 15:39 Blood Blood Culture - Preliminary 03/26/21 15:06 Blood Blood Culture - Preliminary WBC 10.6 X10^3/uL (3.6-10.0) H 03/26/21 15:06 RBC 3.87 X10^6/uL (4.7-6.0) L 03/26/21 15:06 Hgb 11.5 g/dL (13.5-18.0) L 03/26/21 15:06 Hct 35.0 % (42.0-54.0) L 03/26/21 15:06 MCV 90.5 fL (80.0-100.0) 03/26/21 15:06 MCH 29.7 pg (27.0-34.0) 03/26/21 15:06 MCHC 32.8 g/dL (33.0-35.0) L 03/26/21 15:06 RDW 16.0 % (11.6-16.5) 03/26/21 15:06 Plt Count 109 X10^3/uL (150.0-450.0) L 03/26/21 15:06 MPV 9.3 fL (7.4-11.0) 03/26/21 15:06 Neut % (Auto) 82.6 % (42.0-75.0) H 03/26/21 15:06 Lymph % (Auto) 11.7 % (21.0-51.0) L 03/26/21 15:06 [place] % (Auto) 4.2 % (0.0-13.0) 03/26/21 15:06 Eos % (Auto) 1.2 % (0.9-2.9) 03/26/21 15:06 Baso % (Auto) 0.3 % (0.2-1.0) 03/26/21 15:06 Neut # (Auto) 8.8 x10^3/uL (2.2-4.8) H 03/26/21 15:06 Lymph # (Auto) 1.2 X10^3/uL (1.3-2.9) L 03/26/21 15:06 [place] # (Auto) 0.4 x10^3/uL (0.3-0.8) 03/26/21 15:06 Eos # (Auto) 0.1 x10^3/uL (0.0-0.2) 03/26/21 15:06 Baso # (Auto) 0.0 X10^3/uL (0.0-0.1) 03/26/21 15:06 Absolute Nucleated RBC 0.0 /100WBC 03/26/21 15:06 Sample Site Lbra 03/26/21 14:18 ABG pH 7.410 (7.35-7.45) 03/26/21 14:18 ABG pCO2 44.0 mmHg (35.0-45.0) 03/26/21 14:18 ABG pO2 59.0 mmHg (80.0-100.0) L 03/26/21 14:18 ABG HCO3 27.9 mmol/L (22-26) H 03/26/21 14:18 ABG O2 Saturation 90.0 % (90-100) 03/26/21 14:18 ABG Base Excess 2.8 mmol/L (-2.0-2.0) H 03/26/21 14:18 Romain Test N/a 03/26/21 14:18 A-a Gradient 136.0 mmHg 03/26/21 14:18 FiO2 35.0 03/26/21 14:18 Blood Gas Comments Pt donna well elj 03/26/21 14:18 Sodium 140 mmol/L (136-145) 03/26/21 15:06 Corrected Sodium TNP 03/26/21 15:06 Potassium 3.9 mmol/L (3.5-5.1) 03/26/21 15:06 Chloride 103 mmol/L (98-107) 03/26/21 15:06 Carbon Dioxide 29.3 mmol/L (21-32) 03/26/21 15:06 BUN 15 mg/dL (7-18) 03/26/21 15:06 Creatinine 1.24 mg/dL (0.70-1.30) 03/26/21 15:06 Est GFR (MDRD) Af Amer > 60 (>60) 03/26/21 15:06 Est GFR (MDRD) Non-Af 59 (>60) 03/26/21 15:06 Glucose 106 mg/dL (65-99) H 03/26/21 15:06 Lactic Acid 1.7 mmol/L (0.4-2.0) 03/26/21 15:06 Calcium 8.4 mg/dL (8.5-10.1) L 03/26/21 15:06 Corrected Calcium 9.0 mg/dL (8.5-10.1) 03/26/21 15:06 Total Bilirubin 0.90 mg/dL (0.2-1.0) 03/26/21 15:06 AST 25 Units/L (15-37) 03/26/21 15:06 ALT 22 Units/L (12-78) 03/26/21 15:06 Alkaline Phosphatase 70 Units/L (46-116) 03/26/21 15:06 Creatine Kinase 52 Units/L (39-308) 03/26/21 15:06 CK-MB (CK-2) < 1.0 ng/mL (0-4.0) 03/26/21 15:06 CK/CKMB % Calc 1.9 % (<4) 03/26/21 15:06 Troponin I < 0.02 ng/mL (0-1.5) 03/26/21 15:06 Total Protein 6.2 g/dL (6.4-8.2) L 03/26/21 15:06 Albumin 3.2 g/dL (3.4-5.0) L 03/26/21 15:06 Globulin 3.0 g/dL (2.5-4.5) 03/26/21 15:06 Albumin/Globulin Ratio 1.1 Ratio (1.1-2.1) 03/26/21 15:06 Specimen Type Catherized urine 03/26/21 14:27 Urine Color Yellow (YELLOW) 03/26/21 14: Urine Appearance Clear (CLEAR) 03/26/21 14:27 Urine pH 5.0 (5.0 - 8.0) 03/26/21 14:27 Ur Specific [place] 1.020 (1.000-1.030) 03/26/21 14:27 Urine Protein Negative (NEGATIVE) 03/26/21 14:27 Urine Glucose (UA) Negative (NEGATIVE) 03/26/21 14:27 Urine Ketones Negative (NEGATIVE) 03/26/21 14:27 Urine Occult Blood Negative (NEGATIVE) 03/26/21 14: Urine Nitrite Negative (NEGATIVE) 03/26/21 14: Urine Bilirubin Negative (NEGATIVE) 03/26/21 14:27 Urine Urobilinogen Normal (NORMAL) 03/26/21 14:27 Ur Leukocyte Esterase Negative (NEGATIVE) 03/26/21 14:27 SARS CoV-2 RNA Rapid CAMRYN Negative (NEGATIVE) 03/26/21 18:29 Opioid Opioid Risk Tool Age (Ciaran box if 16-45): No History of Preadolescent Sexual Abuse: No Total: 0 Total Score Risk Category: Low Risk Copyright: Pepe RAI predicting aberrant behaviors Instructions Instructions: Fall Prevention in the Home, Adult, [id number] Hypotension, Cihe-da-Apdf Hypoxia Heart Failure, Self Care, Haix-dr-Obpm Chronic Obstructive Pulmonary Disease, Yaxz-zh-Tofy Type 2 Diabetes Mellitus, Self-Care, Adult, Pkim-de-Gsfe Leukocytosis Community-Acquired Pneumonia, Adult, Jciu-ad-Exyf Sepsis, Self Care, Adult Forms: Precautions for COVID19 [facility] Patient Portal Social Distancing
[2021-03-26 14:37] LABS: BILIRUBIN,URINE NEGATIVE (NEGATIVE); BLOOD/HEMOGLOBIN,URINE NEGATIVE (NEGATIVE); GLUCOSE, URINE NEGATIVE (NEGATIVE); KETONES,URINE NEGATIVE (NEGATIVE); LEUKOCYTE ESTERASE ,URINE NEGATIVE (NEGATIVE); NITRITES,URINE NEGATIVE (NEGATIVE); PROTEIN,URINE NEGATIVE (NEGATIVE); UROBILINOGEN,URINE NORMAL (NORMAL)
[2021-03-26 14:40] LABS: APPEARANCE,URINE CLEAR (CLEAR); COLOR,URINE YELLOW (YELLOW)
--- NOTE | 2021-03-26 14:59 | RAD ---
HISTORYPt was found at home unresponsive, will withdraw to pain, tachypneic, very hot to touch, low O2 sats. CAD, HTN, DM, COPD, TONSILLECTOMY, PACEMAKERSTUDYCHEST, 1 VIEWCOMPARISONChest radiograph dated January 28, 2021.FINDINGSThe trachea is midline. The cardiac silhouette is mildly enlarged. There is a stable right-sided cardiac pacing device. There is parenchymal disease in the right lung base which could reflect a developing pneumonia or atelectasis. Please correlate medically for assurance. Left basilar atelectasis is also seen. The upper lungs are clear without focal infiltrate or effusion. The bony thorax is unremarkable.IMPRESSIONAs above.Electronically signed by: JOVON ALBARRAN III (Mar 26, 2021 14:57:15)
[2021-03-26 15:21] LABS: BASOPHILS % (AUTO) 0.3 % (0.2-1.0); EOSINOPHILS # (AUTO) 0.1 x10^3/uL (0.0-0.2); EOSINOPHILS % (AUTO) 1.2 % (0.9-2.9); HEMOGLOBIN 11.5 g/dL (13.5-18.0); LYMPHOCYTES # (AUTO) 1.2 X10^3/uL (1.3-2.9); LYMPHOCYTES % (AUTO) 11.7 % (21.0-51.0); MEAN CORPUSCULAR HEMOGLOBIN 29.7 pg (27.0-34.0); MEAN CORPUSCULAR HGB CONC 32.8 g/dL (33.0-35.0); MEAN CORPUSCULAR VOLUME 90.5 fL (80.0-100.0); MEAN PLATELET VOLUME 9.3 fL (7.4-11.0); MONOCYTES # (AUTO) 0.4 x10^3/uL (0.3-0.8); MONOCYTES % (AUTO) 4.2 % (0.0-13.0); NEUTROPHILS # (AUTO) 8.8 x10^3/uL (2.2-4.8); NEUTROPHILS % (AUTO) 82.6 % (42.0-75.0); PLATELET COUNT 109 X10^3/uL (150.0-450.0); RED BLOOD COUNT 3.87 X10^6/uL (4.7-6.0); WHITE BLOOD COUNT 10.6 X10^3/uL (3.6-10.0)
[2021-03-26] MEDS ORDERED: NS 1,000 ML IV 1,000 ML ONE ×2 (15:33→19:18)
[2021-03-26 15:43] LABS: LACTIC ACID 1.7 mmol/L (0.4-2.0)
[2021-03-26] MEDS ORDERED: NS 1,000 ML IV 500 ML IV ONE (15:48)
[2021-03-26 15:51] LABS: ALANINE AMINOTRANSFERASE 22 Units/L (12-78); ALBUMIN 3.2 g/dL (3.4-5.0); ALKALINE PHOSPHATASE 70 Units/L (46-116); ASPARTATE AMINO TRANSFERASE 25 Units/L (15-37); BLOOD UREA NITROGEN 15 mg/dL (7-18); CALCIUM 8.4 mg/dL (8.5-10.1); CARBON DIOXIDE 29.3 mmol/L (21-32); CHLORIDE 103 mmol/L (98-107); CKMB % 1.9 % (<4); CREATINE KINASE 52 Units/L (39-308); CREATINE KINASE MB < 1.0 ng/mL (0-4.0); CREATININE 1.24 mg/dL (0.70-1.30); SODIUM 140 mmol/L (136-145); TOTAL PROTEIN 6.2 g/dL (6.4-8.2); TROPONIN I < 0.02 ng/mL (0-1.5); eGFR NON BLACK RACES 59 (>60)
[2021-03-26] MEDS ORDERED: LEVOPHED INJ 8 MG in D5W 250 ML IV 242 ML IV PRN (16:41)
[2021-03-26] MEDS ORDERED: D5W 250 ML IV 250 ML IV ONE (16:51)
[2021-03-26] MEDS ORDERED: LEVOPHED INJ ONE (16:54)
[2021-03-26] MEDS ORDERED: ZOSYN VIAL 3.375 GRAMS 3.375 G in NS 100 ML IV + SPIKE MINIBAG* 100 ML IV ONE (18:41)
[2021-03-26] MEDS ORDERED: NS 100 ML IV + SPIKE MINIBAG* 100 ML IV ONE (19:05)
[2021-03-26] MEDS ORDERED: ZOSYN VIAL 3.375 GRAMS IV ONE (19:05)
[2021-03-26] MEDS ORDERED: ROCEPHIN 1 GRAM IV PREMIX 1 G/50 ML IV.SOLN. IV ONE (19:06)
[2021-03-26] MEDS ORDERED: NS 1,000 ML IV 1,000 ML IV ONE (19:18)
[2021-03-26] MEDS: ROCEPHIN 1 GRAM IV PREMIX 1 G/50 ML IV.SOLN. IV ONE ×2 (19:19→19:33)
[2021-03-26] MEDS ORDERED: VANCOMYCIN IV *PREMIX 1 G/200 ML BAG 1 G/200 ML PIGGYBACK IV SCH (19:43)
[2021-03-26] MEDS ORDERED: PHARMACY CONSULT - VANCOMYCIN XX SCH (20:00)
[2021-03-26] MEDS ORDERED: SALINE 3% 15 ML NEB TX NEB ONE (21:07)
[2021-03-26] MEDS ORDERED: SALINE 3% 15 ML NEB TX ONE (21:10)
[2021-03-26] MEDS ORDERED: DUONEB 0.5 MG/3 MG (3 mL) NEB SCH (21:30)
[2021-03-26] MEDS ORDERED: VANCOMYCIN IV *PREMIX 1.5 G/300 ML BAG 1.5 G/300 ML PIGGYBACK IV ONE ×2 (22:00→23:04)
--- NOTE | 2021-03-26 22:56 | DR.OPNOTE ---
OP NOTE Pre-Op Diagnosis: sepsis, lack of IV access Post-Op Diagnosis: same Procedure Date Date Of Procedure: 03/26/21 Procedure: Left femoral vein triple lumen catheter placement NARRATIVE : This patient already has right subclavian vein pacemaker defibrillator . He has leads in the left subclavian vein and I'm unsure as to the reason. Therefore, I decided to place a femoral vein triple Lumen catheter. The left groin was prepped and draped in sterile fashion. The left femoral artery was palpated and needle stick performed medial to this accessing the vein and placing a guide wire without difficulty. Incision made over the guide wire and dilator use to dilate the tract. The central venous catheter was placed over the guide wire into the left common femoral vein, guidewire removed and all ports aspirated of blood and flushed with heparinized saline . The catheter secured to the skin with interrupted silk sutures. Type of Anesthesia: Local (1 % Xylocaine) Findings: as above EBL: minimal Drains/Tubes Placed: None Complications:: none Needle/Sponge Count:: correct Disposition/Condition: Pt. tolerated procedure without difficulty.
[2021-03-27 04:54] LABS: BILIRUBIN,URINE NEGATIVE (NEGATIVE); BLOOD/HEMOGLOBIN,URINE 4+ (NEGATIVE); GLUCOSE, URINE NEGATIVE (NEGATIVE); KETONES,URINE NEGATIVE (NEGATIVE); LEUKOCYTE ESTERASE ,URINE NEGATIVE (NEGATIVE); NITRITES,URINE NEGATIVE (NEGATIVE); PROTEIN,URINE 1+ (NEGATIVE); UROBILINOGEN,URINE NORMAL (NORMAL)
[2021-03-27 05:02] LABS: APPEARANCE,URINE CLEAR (CLEAR); BACTERIA,URINE NEGATIVE /HPF (NEGATIVE); COLOR,URINE YELLOW (YELLOW); SQUAMOUS EPITHELIAL CELL,UR NEGATIVE /HPF (NEGATIVE)
[2021-03-27 05:36] LABS: BASOPHILS % (AUTO) 0.1 % (0.2-1.0); EOSINOPHILS % (AUTO) 0.2 % (0.9-2.9); HEMATOCRIT 30.4 % (42.0-54.0); HEMOGLOBIN 10.1 g/dL (13.5-18.0); LYMPHOCYTES # (AUTO) 1.2 X10^3/uL (1.3-2.9); LYMPHOCYTES % (AUTO) 5.3 % (21.0-51.0); MEAN CORPUSCULAR HEMOGLOBIN 29.9 pg (27.0-34.0); MEAN CORPUSCULAR HGB CONC 33.3 g/dL (33.0-35.0); MEAN CORPUSCULAR VOLUME 89.9 fL (80.0-100.0); MEAN PLATELET VOLUME 9.9 fL (7.4-11.0); MONOCYTES # (AUTO) 0.5 x10^3/uL (0.3-0.8); MONOCYTES % (AUTO) 2.1 % (0.0-13.0); NEUTROPHILS # (AUTO) 20.4 x10^3/uL (2.2-4.8); NEUTROPHILS % (AUTO) 92.3 % (42.0-75.0); PLATELET COUNT 106 X10^3/uL (150.0-450.0); RED BLOOD COUNT 3.38 X10^6/uL (4.7-6.0); RED CELL DISTRIBUTION WIDTH 16.1 % (11.6-16.5); WHITE BLOOD COUNT 22.1 X10^3/uL (3.6-10.0)
[2021-03-27 06:15] LABS: BAND NEUTROPHILS % 10 % (0-10); PLATELET MORPHOLOGY COMMENT NORMAL (NORMAL)
[2021-03-27 06:21] LABS: ALANINE AMINOTRANSFERASE 22 Units/L (12-78); ALBUMIN 2.6 g/dL (3.4-5.0); ALKALINE PHOSPHATASE 58 Units/L (46-116); ASPARTATE AMINO TRANSFERASE 34 Units/L (15-37); BLOOD UREA NITROGEN 19 mg/dL (7-18); CALCIUM 7.9 mg/dL (8.5-10.1); CARBON DIOXIDE 24.3 mmol/L (21-32); CHLORIDE 107 mmol/L (98-107); CKMB % 1.4 % (<4); COR NA(FOR HYPERGLY) 141 mmol/L (136-145); CREATINE KINASE 648 Units/L (39-308); CREATININE 1.35 mg/dL (0.70-1.30); MAGNESIUM 1.4 mg/dL (1.7-2.9); SODIUM 140 mmol/L (136-145); TOTAL PROTEIN 5.5 g/dL (6.4-8.2); TROPONIN I < 0.02 ng/mL (0-1.5); eGFR NON BLACK RACES 53 (>60)
[2021-03-27 06:23] LABS: CREATINE KINASE MB 9.2 ng/mL (0-4.0)
[2021-03-27] MEDS ORDERED: DUONEB 0.5 MG/3 MG (3 mL) NEB ONE ×2 (09:26→13:02)
[2021-03-27] MEDS: DUONEB 0.5 MG/3 MG (3 mL) NEB SCH ×3 (09:55→16:15)
[2021-03-27] MEDS: LOVENOX INJ 40 MG SYR SC SCH (10:09)
[2021-03-27 14:20] LABS: ABG ALLEN TEST POS; ABG BASE EXCESS 1.1 mmol/L (-2.0-2.0); ABG HCO3 25.1 mmol/L (22-26)
[2021-03-27] MEDS: NS 1,000 ML IV 1,000 ML IV SCH (14:49)
[2021-03-27 15:20] LABS: CKMB % 0.8 % (<4); CREATINE KINASE 832 Units/L (39-308); TROPONIN I < 0.02 ng/mL (0-1.5)
[2021-03-27 15:23] LABS: CREATINE KINASE MB 6.2 ng/mL (0-4.0)
--- NOTE | 2021-03-27 18:35 | RAD ---
CHEST, 1 VIEWHISTORY: SOB, CHF,CAD,SEPSISStudy: Single view of the chest.Comparison:NoneFindings:The cardiomediastinal silhouette is normal. Bilateral interstitial prominence. No focal consolidations, pleural effusions or pneumothorax. Osseous structures demonstrate no acute abnormality.IMPRESSION:1. Bilateral interstitial prominence. Findings may represent atypical infection, including viral etiologies.Electronically signed by: AMA MALONEY (Mar 27, 2021 18:34:01)
[2021-03-27] MEDS ORDERED: XOPENEX 1.25 MG/3 ML NEBULE NEB ONE (19:23)
[2021-03-27] MEDS: XOPENEX 1.25 MG/3 ML NEBULE NEB SCH (20:35)
[2021-03-27] MEDS: LYRICA CAP 75 mg PO SCH (20:50)
[2021-03-27] MEDS ORDERED: REQUIP PO SCH (21:00)
[2021-03-27] MEDS ORDERED: VANCOMYCIN IV *PREMIX 1 G/200 ML BAG 1 G/200 ML PIGGYBACK IV SCH (21:00)
[2021-03-28] MEDS: XOPENEX 1.25 MG/3 ML NEBULE NEB SCH ×3 (05:03→20:45)
[2021-03-28 05:31] LABS: BASOPHILS % (AUTO) 0.2 % (0.2-1.0); EOSINOPHILS # (AUTO) 0.1 x10^3/uL (0.0-0.2); EOSINOPHILS % (AUTO) 0.5 % (0.9-2.9); HEMATOCRIT 25.6 % (42.0-54.0); HEMOGLOBIN 8.5 g/dL (13.5-18.0); LYMPHOCYTES # (AUTO) 1.4 X10^3/uL (1.3-2.9); LYMPHOCYTES % (AUTO) 10.7 % (21.0-51.0); MEAN CORPUSCULAR HEMOGLOBIN 29.6 pg (27.0-34.0); MEAN CORPUSCULAR HGB CONC 33.2 g/dL (33.0-35.0); MEAN CORPUSCULAR VOLUME 89.2 fL (80.0-100.0); MEAN PLATELET VOLUME 9.9 fL (7.4-11.0); MONOCYTES # (AUTO) 0.5 x10^3/uL (0.3-0.8); MONOCYTES % (AUTO) 3.7 % (0.0-13.0); NEUTROPHILS # (AUTO) 11.2 x10^3/uL (2.2-4.8); NEUTROPHILS % (AUTO) 84.9 % (42.0-75.0); PLATELET COUNT 72 X10^3/uL (150.0-450.0); RED BLOOD COUNT 2.88 X10^6/uL (4.7-6.0); RED CELL DISTRIBUTION WIDTH 16.3 % (11.6-16.5); WHITE BLOOD COUNT 13.2 X10^3/uL (3.6-10.0)
[2021-03-28 05:46] LABS: ALANINE AMINOTRANSFERASE 18 Units/L (12-78); ALBUMIN 2.2 g/dL (3.4-5.0); ALKALINE PHOSPHATASE 60 Units/L (46-116); ASPARTATE AMINO TRANSFERASE 37 Units/L (15-37); BLOOD UREA NITROGEN 16 mg/dL (7-18); CALCIUM 8.3 mg/dL (8.5-10.1); CHLORIDE 108 mmol/L (98-107); COR CA(FOR HYPOALB) 9.7 mg/dL (8.5-10.1); COR NA(FOR HYPERGLY) 140 mmol/L (136-145); CREATININE 0.89 mg/dL (0.70-1.30); SODIUM 140 mmol/L (136-145); TOTAL PROTEIN 5.1 g/dL (6.4-8.2); eGFR NON BLACK RACES > 60 (>60)
--- NOTE | 2021-03-28 06:38 | RAD ---
HISTORYFollow-up pneumoniaSTUDYChest AP [id number]/03/2021FINDINGSTher e is a pacemaker present on the right obscuring a portion of the right lung apex. Heart size is normal. [place] are normal. Lungs are well inflated. No definite acute alveolar infiltrates or areas of consolidation are identified. No definite significant interstitial infiltrates are present. No pleural effusions or pneumothoraces are identified. Bony thorax is unremarkable.IMPRESSIONNo definite residual infiltratesElectronically signed by: HELIO TAYLOR (Mar 28, 2021 06:36:14)
[2021-03-28] MEDS ORDERED: PHARMACY COMMENT IV NR (08:30)
[2021-03-28] MEDS: LYRICA CAP 75 mg PO SCH ×2 (09:07→21:45)
[2021-03-28] MEDS: LASIX PO SCH ×2 (09:07→18:21)
[2021-03-28] MEDS: ZYLOPRIM PO SCH (09:08)
[2021-03-28] MEDS: NexIUM PO SCH (09:08)
[2021-03-28] MEDS: REQUIP PO SCH ×2 (09:08→21:45)
[2021-03-28] MEDS: SOLU-Medrol 40 MG VIAL IVP SCH ×3 (09:08→21:45)
[2021-03-28] MEDS: MAGNESIUM SULFATE 1 GRAM/100 mL PREMIX 2 G/200 ML BAG IV SCH ×2 (09:08→11:50)
[2021-03-28] MEDS: ZOSYN VIAL 3.375 GRAMS 3.375 G in NS 100 ML IV + SPIKE MINIBAG* 100 ML IV SCH ×3 (11:50→21:45)
[2021-03-28] MEDS: ZITHROMAX INJ 500 MG VIAL 500 MG in NS 250 ML IV 250 ML IV SCH (11:50)
[2021-03-28] MEDS: NS 1,000 ML IV 1,000 ML IV SCH (15:04)
--- NOTE | 2021-03-28 15:10 | DR.H&P ---
H&P - History & Physical for Day of: H&P Date: 03/26/21 - Chief Complaint Chief Complaint: SOB - History of Present Illness History of Present Illness: Patient is an 85 year old white female who was admitted due to hypotension, sepsis, pneumonia. Patient reports minimal improvement in symptoms. Patient was started on Levophed in the ER. Improvement in BP. Patient is tolerating supplemental oxygen via nasal cannula. Patient reports significant SOB for 2 days which progressively became worse therefore patient came to ER. Patient denies fever and chills. Patient reports weakness. Denies CP, changes in bowel or bladder. Extensive PMH. - Past Medical History Past Medical History: Coronary Artery Disease, Hypertension, Diabetes, Anxiety, COPD, PUD, GERD, Arthritis, Gout - Past Surgical History Surgical History: Ortho Surgery, Tonsillectomy, Other Additional Surgical History: PACEMAKER - Family History Family Medical History: Diabetes Mellitus, Hypertension - Social History Alcohol Use: None Drug Use: None - Medications Home Medications: codeine Allergy (Verified 02/09/20 18:16) iodine Allergy (Verified 02/09/20 18:16) CONTINUE taking the following medications azelastine 1 spray INTRANASAL DAILY 03/26/21 [History] bupropion HCl 75 mg PO DAILY 03/26/21 [History] famotidine 40 mg PO QHS 03/26/21 [History] ipratropium-albuterol [Combivent Respimat] 1 puff INHALATION BID 03/26/21 [History] omeprazole 40 mg PO DAILY 03/26/21 [History] pregabalin 75 mg PO BID 03/26/21 [History] - Review of Systems Constitutional: See HPI Eyes: See HPI ENT: See HPI Respiratory: See HPI Cardiovascular: See HPI Gastrointestinal: See HPI Genitourinary: See HPI Musculoskeletal: See HPI Skin: See HPI Neurological: See HPI - Physical Exam Vital Signs: Temperature 99.4 F Pulse Rate [Left Radial] 71 Pulse Rate 81 Respiratory Rate 27 Blood Pressure [Right Arm] 135/58 Blood Pressure 120/56 O2 Sat by Pulse Oximetry 92 Oriented: Normal, Time, Person, Place Eyes: Normal Ear: Normal Nose: Normal Throat: Dry Respiratory: RLL Diminished, LLL Diminished, RUL Insp. Wheeze, RML Insp. Wheeze, RUL Exp. Wheeze, RML Exp. Wheeze Cardiovascular: Normal : Normal Auscultation: Bowel Sounds: Normal Palpation: Normal Tenderness: Normal Skin: Normal Musculoskeletal: Normal (generalized global weakness) Psychiatric: Normal Mood Description: Calm Affect: Normal Speech Pattern: Clear, Appropriate - Assessment/Plan (1) Sepsis Status: Acute Plan: IV abx. IV fluids. Cultures pend. Duo nebs. Repeat CXR and labs in am (2) Pneumonia Qualifiers: Pneumonia type: due to unspecified organism Laterality: right Lung location: middle lobe of lung Qualified Code(s): J18.9 - Pneumonia, unspecified organism Status: Acute Plan: See above (3) Generalized weakness Status: Chronic Plan: Physical therapy (4) AMS (altered mental status) Qualifiers: Altered mental status type: disorientation Qualified Code(s): R41.0 - Disorientation, unspecified Status: Acute Plan: Secondary to above (5) Hypoxia Status: Chronic (6) COPD exacerbation Status: Acute Plan: See above (7) Leukocytosis Status: Acute (8) ROYA (acute kidney injury) Status: Acute Plan: IV fluids - Allergies Allergies/Adverse Reactions: Allergies Allergy/AdvReac Type Severity Reaction Status Date / Time codeine Allergy Verified 02/09/20 18:16 iodine Allergy Verified 02/09/20 18:16
--- NOTE | 2021-03-28 15:20 | PCM.PROG ---
Progress Note - Subjective Subjective: Patient is an 85 year old white male who was admitted due to HPI. Patient's levophed drip has been d/c'd; Hypotension resolved. WBC improved. Vanc d/c'd, Zosyn continued, Zithromax added. Kidney function improved. Questions answered and concerns addressed. - Past Medical Family Social History Past Med/Fam/Surg Hx: No changes since H&P Allergies: Allergies codeine Allergy (Verified 02/09/20 18:16) iodine Allergy (Verified 02/09/20 18:16) - Review of Systems ROS: No change since H&P - Vital Signs and I&O's Vital Signs: Temperature 99.4 F Pulse Rate [Left Radial] 71 Pulse Rate 81 Respiratory Rate 27 Blood Pressure [Right Arm] 135/58 Blood Pressure 120/56 O2 Sat by Pulse Oximetry 92 Intake and Output: Intake & Output 03/25/21 03/26/21 03/27/21 03/28/21 23:59 23:59 23:59 23:59 Intake Total 1670.00 / 1670.00 1510 / 1510 1161 / 1161 Output Total 800 / 800 1950 / 1950 1450 / 1450 Balance 870.00 / 870.00 -440 / -440 -289 / -289 - Physical Exam Oriented: Normal, Time, Person, Place Eyes: Normal Ear: Normal Nose: Normal Throat: Dry Respiratory: Wheezes Cardiovascular: Normal : Normal Auscultation: Bowel Sounds: Normal Palpation: Normal Tenderness: Normal Skin: Normal Musculoskeletal: Normal (generalized global weakness) Psychiatric: Normal Mood Description: Calm Affect: Normal Speech Pattern: Clear, Appropriate - Laboratory and Diagnostics Result Diagrams: 03/28/21 05:00 03/28/21 05:00 Labs: 03/27/21 04:15 Sputum - Expectorated Sputum Sputum Culture - Preliminary 03/27/21 04:15 Sputum - Expectorated Sputum - Final 03/26/21 15:39 Blood Blood Culture - Preliminary 03/26/21 15:06 Blood Blood Culture - Preliminary Laboratory WBC 13.2 X10^3/uL (3.6-10.0) H D 03/28/21 05:00 RBC 2.88 X10^6/uL (4.7-6.0) L 03/28/21 05:00 Hgb 8.5 g/dL (13.5-18.0) L 03/28/21 05:00 Hct 25.6 % (42.0-54.0) L 03/28/21 05:00 MCV 89.2 fL (80.0-100.0) 03/28/21 05:00 MCH 29.6 pg (27.0-34.0) 03/28/21 05:00 MCHC 33.2 g/dL (33.0-35.0) 03/28/21 05:00 RDW 16.3 % (11.6-16.5) 03/28/21 05:00 Plt Count 72 X10^3/uL (150.0-450.0) L 03/28/21 05:00 Plt Count Comment Decreased (ADEQUATE) 03/27/21 04:42 MPV 9.9 fL (7.4-11.0) 03/28/21 05:00 Neut % (Auto) 84.9 % (42.0-75.0) H 03/28/21 05:00 Lymph % (Auto) 10.7 % (21.0-51.0) L 03/28/21 05:00 [place] % (Auto) 3.7 % (0.0-13.0) 03/28/21 05:00 Eos % (Auto) 0.5 % (0.9-2.9) L 03/28/21 05:00 Baso % (Auto) 0.2 % (0.2-1.0) 03/28/21 05:00 Neut # (Auto) 11.2 x10^3/uL (2.2-4.8) H 03/28/21 05:00 Lymph # (Auto) 1.4 X10^3/uL (1.3-2.9) 03/28/21 05:00 [place] # (Auto) 0.5 x10^3/uL (0.3-0.8) 03/28/21 05:00 Eos # (Auto) 0.1 x10^3/uL (0.0-0.2) 03/28/21 05:00 Baso # (Auto) 0.0 X10^3/uL (0.0-0.1) 03/28/21 05:00 Absolute Nucleated RBC 0.0 /100WBC 03/28/21 05:00 Total Counted 100 03/27/21 04:42 Neutrophils % (Manual) 85 % (39-76) H 03/27/21 04:42 Band Neutrophils % 10 % (0-10) 03/27/21 04:42 Lymphocytes % (Manual) 5 % (13-43) L 03/27/21 04:42 Plt Morphology Comment Normal (NORMAL) 03/27/21 04:42 RBC Morphology Normal (NORMAL) 03/27/21 04:42 PT 14.6 SECONDS (11.8-14.3) 03/27/21 04:42 INR Target Range - 03/27/21 04:42 INR 1.20 (0.8-1.3) 03/27/21 04:42 APTT 37.2 SECONDS (22.9-36.5) H 03/27/21 04:42 PTT Comment - 03/27/21 04:42 Sample Site Rr 03/27/21 14:15 ABG pH 7.440 (7.35-7.45) 03/27/21 14:15 ABG pCO2 37.0 mmHg (35.0-45.0) 03/27/21 14:15 ABG pO2 87.0 mmHg (80.0-100.0) 03/27/21 14:15 ABG HCO3 25.1 mmol/L (22-26) 03/27/21 14:15 ABG O2 Saturation 97.0 % (90-100) 03/27/21 14:15 ABG Base Excess 1.1 mmol/L (-2.0-2.0) 03/27/21 14:15 Romain Test Pos 03/27/21 14:15 A-a Gradient 95.0 mmHg 03/27/21 14:15 FiO2 32.0 03/27/21 14:15 Blood Gas Comments Pt donna well cdn 03/27/21 14:15 Sodium 140 mmol/L (136-145) 03/28/21 05:00 Corrected Sodium 140 mmol/L (136-145) 03/28/21 05:00 Potassium 4.1 mmol/L (3.5-5.1) 03/28/21 05:00 Chloride 108 mmol/L (98-107) H 03/28/21 05:00 Carbon Dioxide 26.0 mmol/L (21-32) 03/28/21 05:00 BUN 16 mg/dL (7-18) 03/28/21 05:00 Creatinine 0.89 mg/dL (0.70-1.30) 03/28/21 05:00 Est GFR (MDRD) Af Amer > 60 (>60) 03/28/21 05:00 Est GFR (MDRD) Non-Af > 60 (>60) 03/28/21 05:00 Glucose 112 mg/dL (65-99) H 03/28/21 05:00 POC Glucose (mg/dL) 142 mg/dL (65-99) H 03/28/21 11:01 Lactic Acid 1.7 mmol/L (0.4-2.0) 03/26/21 15:06 Calcium 8.3 mg/dL (8.5-10.1) L 03/28/21 05:00 Corrected Calcium 9.7 mg/dL (8.5-10.1) 03/28/21 05:00 Magnesium 1.4 mg/dL (1.7-2.9) L 03/27/21 04:42 Total Bilirubin 0.60 mg/dL (0.2-1.0) 03/28/21 05:00 AST 37 Units/L (15-37) 03/28/21 05:00 ALT 18 Units/L (12-78) 03/28/21 05:00 Alkaline Phosphatase 60 Units/L (46-116) 03/28/21 05:00 Creatine Kinase 832 Units/L (39-308) H 03/27/21 14:15 CK-MB (CK-2) 6.2 ng/mL (0-4.0) H* 03/27/21 14:15 CK/CKMB % Calc 0.8 % (<4) 03/27/21 14:15 Troponin I < 0.02 ng/mL (0-1.5) 03/27/21 14:15 Total Protein 5.1 g/dL (6.4-8.2) L 03/28/21 05:00 Albumin 2.2 g/dL (3.4-5.0) L 03/28/21 05:00 Globulin 2.9 g/dL (2.5-4.5) 03/28/21 05:00 Albumin/Globulin Ratio 0.8 Ratio (1.1-2.1) L 03/28/21 05:00 Specimen Type Catherized urine 03/27/21 04:15 Urine Color Yellow (YELLOW) 03/27/21 04:15 Urine Appearance Clear (CLEAR) 03/27/21 04:15 Urine pH 5.0 (5.0 - 8.0) 03/27/21 04:15 Ur Specific [place] 1.020 (1.000-1.030) 03/27/21 04:15 Urine Protein 1+ (NEGATIVE) 03/27/21 04:15 Urine Glucose (UA) Negative (NEGATIVE) 03/27/21 04:15 Urine Ketones Negative (NEGATIVE) 03/27/21 04:15 Urine Occult Blood 4+ (NEGATIVE) 03/27/21 04:15 Urine Nitrite Negative (NEGATIVE) 03/27/21 04:15 Urine Bilirubin Negative (NEGATIVE) 03/27/21 04:15 Urine Urobilinogen Normal (NORMAL) 03/27/21 04:15 Ur Leukocyte Esterase Negative (NEGATIVE) 03/27/21 04:15 Urine RBC 3-5 /HPF (0-3) A 03/27/21 04:15 Urine WBC 0-2 /HPF (0-5) 03/27/21 04:15 Ur Squamous Epith Cells Negative /HPF (NEGATIVE) 03/27/21 04:15 Urine Bacteria Negative /HPF (NEGATIVE) 03/27/21 04:15 Ur Culture Indicated? No/not indicated 03/27/21 04:15 Influenza Type A Ag Negative-presumptive (NEGATIVE) 03/27/21 13:17 Influenza Type B Ag Negative-presumptive (NEGATIVE) 03/27/21 13:17 SARS CoV-2 RNA Rapid CAMRYN Negative (NEGATIVE) 03/26/21 18:29 - Plan (1) Sepsis Status: Acute Plan: IV abx. IV fluids. Cultures pend. Duo nebs. Repeat CXR and labs in am (2) Pneumonia Status: Acute Qualifiers: Pneumonia type: due to unspecified organism Laterality: right Lung locat ion: middle lobe of lung Qualified Code(s): J18.9 - Pneumonia, unspecified organism Plan: See above (3) Generalized weakness Status: Chronic Plan: Physical therapy (4) AMS (altered mental status) Status: Acute Qualifiers: Altered mental status type: disorientation Qualified Code(s): R41.0 - Disorientation, unspecified Plan: Secondary to above. Improved (5) Hypoxia Status: Chronic Plan: Supplemental oxygen. Improved (6) COPD exacerbation Status: Acute Plan: See above (7) Leukocytosis Status: Acute Plan: Improved (8) ROYA (acute kidney injury) Status: Acute Plan: IV fluids
[2021-03-28] MEDS: NORCO 10/325 TAB PO PRN (15:38)
[2021-03-28] MEDS ORDERED: CARDURA PO SCH (16:00)
[2021-03-28] MEDS ORDERED: M.S. CONTIN 30 MG EXTENDED RELEASE PO PRN (16:04)
[2021-03-28] MEDS ORDERED: NORCO 10/325 TAB PO PRN (16:04)
[2021-03-28] MEDS ORDERED: PEPCID TAB 40 MG PO SCH (16:15)
[2021-03-28] MEDS ORDERED: DOXAZOSIN 8 MG PO SCH (16:15)
[2021-03-28] MEDS ORDERED: PATIENT'S HOME MEDICATION (Ipratropium-Albuterol [Combivent Respimat] 20-100 mcg/actuation IN SCH (16:15)
[2021-03-28] MEDS ORDERED: LIPITOR TAB 20 MG PO SCH (17:00)
[2021-03-28] MEDS ORDERED: ZYLOPRIM PO SCH (17:00)
[2021-03-28] MEDS ORDERED: REQUIP PO SCH (17:00)
[2021-03-28] MEDS ORDERED: LASIX PO SCH (17:00)
[2021-03-28] MEDS ORDERED: LYRICA CAP 75 mg PO SCH (17:00)
[2021-03-28] MEDS ORDERED: GLUCOPHAGE PO SCH (17:00)
[2021-03-28] MEDS ORDERED: NexIUM PO SCH (17:00)
[2021-03-28] MEDS ORDERED: PriLOSEC PO SCH (17:00)
[2021-03-28] MEDS: HumaLOG SC PRN ×2 (17:44→22:00)
[2021-03-28] MEDS: GLUCOPHAGE PO SCH (17:47)
[2021-03-28] MEDS ORDERED: GLUCOPHAGE ONE (18:06)
[2021-03-28] MEDS: CARDURA PO SCH (21:45)
[2021-03-28] MEDS: PEPCID TAB 40 MG PO SCH (21:45)
[2021-03-28] MEDS: LIPITOR TAB 20 MG PO SCH (21:45)
[2021-03-29] MEDS: NORCO 10/325 TAB PO PRN ×2 (05:30→11:15)
[2021-03-29] MEDS: ZOSYN VIAL 3.375 GRAMS 3.375 G in NS 100 ML IV + SPIKE MINIBAG* 100 ML IV SCH ×3 (05:45→22:00)
[2021-03-29] MEDS: SOLU-Medrol 40 MG VIAL IVP SCH ×2 (05:45→15:19)
[2021-03-29 05:51] LABS: ALANINE AMINOTRANSFERASE 18 Units/L (12-78); ALBUMIN 2.3 g/dL (3.4-5.0); ALKALINE PHOSPHATASE 80 Units/L (46-116); ASPARTATE AMINO TRANSFERASE 29 Units/L (15-37); BLOOD UREA NITROGEN 16 mg/dL (7-18); CALCIUM 8.6 mg/dL (8.5-10.1); CARBON DIOXIDE 23.7 mmol/L (21-32); CHLORIDE 107 mmol/L (98-107); COR NA(FOR HYPERGLY) 141 mmol/L (136-145); CREATININE 0.81 mg/dL (0.70-1.30); SODIUM 140 mmol/L (136-145); TOTAL PROTEIN 5.4 g/dL (6.4-8.2); eGFR NON BLACK RACES > 60 (>60)
[2021-03-29 05:58] LABS: ABG HCO3 25.5 mmol/L (22-26)
[2021-03-29 06:01] LABS: BASOPHILS % (AUTO) 0.1 % (0.2-1.0); HEMATOCRIT 27.2 % (42.0-54.0); HEMOGLOBIN 9.3 g/dL (13.5-18.0); LYMPHOCYTES # (AUTO) 0.5 X10^3/uL (1.3-2.9); LYMPHOCYTES % (AUTO) 5.1 % (21.0-51.0); MEAN CORPUSCULAR HEMOGLOBIN 30.5 pg (27.0-34.0); MEAN CORPUSCULAR HGB CONC 34.3 g/dL (33.0-35.0); MEAN CORPUSCULAR VOLUME 88.7 fL (80.0-100.0); MEAN PLATELET VOLUME 10.4 fL (7.4-11.0); MONOCYTES # (AUTO) 0.1 x10^3/uL (0.3-0.8); MONOCYTES % (AUTO) 1.5 % (0.0-13.0); NEUTROPHILS # (AUTO) 8.3 x10^3/uL (2.2-4.8); NEUTROPHILS % (AUTO) 93.3 % (42.0-75.0); PLATELET COUNT 78 X10^3/uL (150.0-450.0); RED BLOOD COUNT 3.07 X10^6/uL (4.7-6.0); RED CELL DISTRIBUTION WIDTH 15.9 % (11.6-16.5); WHITE BLOOD COUNT 8.9 X10^3/uL (3.6-10.0)
[2021-03-29 06:01] LABS: ABG ALLEN TEST POS
--- NOTE | 2021-03-29 06:18 | RAD ---
HISTORYPNEUMONIASTUDYCHEST, 1 VIEWCOMPARISONOne day prior.TECHNIQUEAP view of the chestFINDINGSRight chest wall pacemaker with leads in good position. Cardiac and mediastinal contours are within normal limits. Stable blunting of the left costophrenic sulci. Stable mild bilateral scattered patchy opacities. No discernible pneumothorax.IMPRESSIONNo significant change. Mild bilateral patchy opacities suspicious for pneumonia. Suspect small left pleural effusion.Electronically signed by: Ruy Pierson (Mar 29, 2021 06:16:58)
[2021-03-29] MEDS: XOPENEX 1.25 MG/3 ML NEBULE NEB SCH ×3 (06:19→20:14)
[2021-03-29 07:02] LABS: BAND NEUTROPHILS % 1 % (0-10)
[2021-03-29 07:03] LABS: PLATELET MORPHOLOGY COMMENT NORMAL (NORMAL)
[2021-03-29] MEDS ORDERED: GLUCOPHAGE ONE ×2 (07:13→17:38)
[2021-03-29] MEDS: GLUCOPHAGE PO SCH ×2 (07:34→17:31)
[2021-03-29] MEDS: LASIX PO SCH (08:08)
[2021-03-29] MEDS: ASTELIN NASAL SPRAY ENOSTRIL SCH (08:08)
[2021-03-29] MEDS: LYRICA CAP 75 mg PO SCH ×2 (08:09→21:15)
[2021-03-29] MEDS: NexIUM PO SCH (08:09)
[2021-03-29] MEDS: ZYLOPRIM PO SCH (08:10)
[2021-03-29] MEDS: ZITHROMAX INJ 500 MG VIAL 500 MG in NS 250 ML IV 250 ML IV SCH (08:10)
[2021-03-29] MEDS: REQUIP PO SCH ×2 (10:15→21:15)
[2021-03-29] MEDS: NS 1,000 ML IV 1,000 ML IV SCH (15:20)
[2021-03-29 16:33] LABS: ABG BASE EXCESS 1.2 mmol/L (-2.0-2.0)
[2021-03-29 16:34] LABS: ABG ALLEN TEST POS
--- NOTE | 2021-03-29 18:31 | PCM.PROG ---
Progress Note - Progress Note for Day of Date of Exam: 03/27/21 - Subjective Subjective: Patient is an 85 year old white male who was admitted due to HPI. Patient was hypotensive and remains on Levophed drip. Weaning parameters. WBC improved. Patient is alert and oriented. Patient reports minimal improvement in symptoms. Patient tolerating oxygen via nasal cannula. 1 hour critical care time spent with patient. Questions answered and concerns addressed. - Past Medical Family Social History Past Med/Fam/Surg Hx: No changes since H&P Allergies: Allergies codeine Allergy (Verified 02/09/20 18:16) iodine Allergy (Verified 02/09/20 18:16) - Review of Systems ROS: No change since H&P - Vital Signs and I&O's Vital Signs: Temperature 98.7 F Pulse Rate [Left Radial] 71 Pulse Rate 91 Respiratory Rate 28 Blood Pressure [Right Arm] 135/58 Blood Pressure 125/59 O2 Sat by Pulse Oximetry 98 Intake and Output: Intake & Output 03/26/21 03/27/21 03/28/21 03/29/21 23:59 23:59 23:59 23:59 Intake Total 1670.00 / 1670.00 1510 / 1510 1965 / 1965 910 / 910 Output Total 800 / 800 1949 / 1950 2350 / 2350 725 / 725 Balance 870.00 / 870.00 -440 / -440 -384 / -384 185 / 185 - Physical Exam Oriented: Normal, Time, Person, Place Eyes: Normal Ear: Normal Nose: Normal Throat: Dry Respiratory: Wheezes (throughout) Cardiovascular: Normal : Normal Auscultation: Bowel Sounds: Normal Palpation: Normal Tenderness: Normal Skin: Normal Musculoskeletal: Back:Thoracic, Back:Lumbar, Tender (generalized weakness) Psychiatric: Normal Mood Description: Calm Affect: Normal Speech Pattern: Clear, Appropriate - Laboratory and Diagnostics Result Diagrams: 03/29/21 05:05 03/29/21 05:05 Labs: 03/27/21 04:15 Sputum - Expectorated Sputum Sputum Culture - Final 03/27/21 04:15 Sputum - Expectorated Sputum - Final 03/26/21 15:39 Blood Blood Culture - Preliminary 03/26/21 15:06 Blood Blood Culture - Preliminary Laboratory WBC 8.9 X10^3/uL (3.6-10.0) 03/29/21 05:05 RBC 3.07 X10^6/uL (4.7-6.0) L 03/29/21 05:05 Hgb 9.3 g/dL (13.5-18.0) L 03/29/21 05:05 Hct 27.2 % (42.0-54.0) L 03/29/21 05:05 MCV 88.7 fL (80.0-100.0) 03/29/21 05:05 MCH 30.5 pg (27.0-34.0) 03/29/21 05:05 MCHC 34.3 g/dL (33.0-35.0) 03/29/21 05:05 RDW 15.9 % (11.6-16.5) 03/29/21 05:05 Plt Count 78 X10^3/uL (150.0-450.0) L 03/29/21 05:05 Plt Count Comment Decreased (ADEQUATE) 03/29/21 05:05 MPV 10.4 fL (7.4-11.0) 03/29/21 05:05 Neut % (Auto) 93.3 % (42.0-75.0) H 03/29/21 05:05 Lymph % (Auto) 5.1 % (21.0-51.0) L 03/29/21 05:05 [place] % (Auto) 1.5 % (0.0-13.0) 03/29/21 05:05 Eos % (Auto) 0.0 % (0.9-2.9) L 03/29/21 05:05 Baso % (Auto) 0.1 % (0.2-1.0) L 03/29/21 05:05 Neut # (Auto) 8.3 x10^3/uL (2.2-4.8) H 03/29/21 05:05 Lymph # (Auto) 0.5 X10^3/uL (1.3-2.9) L 03/29/21 05:05 [place] # (Auto) 0.1 x10^3/uL (0.3-0.8) L 03/29/21 05:05 Eos # (Auto) 0.0 x10^3/uL (0.0-0.2) 03/29/21 05:05 Baso # (Auto) 0.0 X10^3/uL (0.0-0.1) 03/29/21 05:05 Absolute Nucleated RBC 0.1 /100WBC 03/29/21 05:05 Total Counted 100 03/29/21 05:05 Neutrophils % (Manual) 97 % (39-76) H 03/29/21 05:05 Band Neutrophils % 1 % (0-10) 03/29/21 05:05 Lymphocytes % (Manual) 2 % (13-43) L 03/29/21 05:05 Plt Morphology Comment Normal (NORMAL) 03/29/21 05:05 RBC Morphology Normal (NORMAL) 03/29/21 05:05 PT 14.6 SECONDS (11.8-14.3) 03/27/21 04:42 INR Target Range - 03/27/21 04:42 INR 1.20 (0.8-1.3) 03/27/21 04:42 APTT 37.2 SECONDS (22.9-36.5) H 03/27/21 04:42 PTT Comment - 03/27/21 04:42 Sample Site Rb 03/29/21 16:28 ABG pH 7.410 (7.35-7.45) 03/29/21 16:28 ABG pCO2 41.0 mmHg (35.0-45.0) 03/29/21 16:28 ABG pO2 95.0 mmHg (80.0-100.0) 03/29/21 16:28 ABG HCO3 26.0 mmol/L (22-26) 03/29/21 16:28 ABG O2 Saturation 97.0 % (90-100) 03/29/21 16:28 ABG Base Excess 1.2 mmol/L (-2.0-2.0) 03/29/21 16:28 Romain Test Pos 03/29/21 16:28 A-a Gradient 53.0 mmHg 03/29/21 16:28 FiO2 28.0 03/29/21 16:28 Blood Gas Comments Pt donna well. gb 03/29/21 16:28 Sodium 140 mmol/L (136-145) 03/29/21 05:05 Corrected Sodium 141 mmol/L (136-145) 03/29/21 05:05 Potassium 3.5 mmol/L (3.5-5.1) 03/29/21 05:05 Chloride 107 mmol/L (98-107) 03/29/21 05:05 Carbon Dioxide 23.7 mmol/L (21-32) 03/29/21 05:05 BUN 16 mg/dL (7-18) 03/29/21 05:05 Creatinine 0.81 mg/dL (0.70-1.30) 03/29/21 05:05 Est GFR (MDRD) Af Amer > 60 (>60) 03/29/21 05:05 Est GFR (MDRD) Non-Af > 60 (>60) 03/29/21 05:05 Glucose 162 mg/dL (65-99) H 03/29/21 05:05 POC Glucose (mg/dL) 150 mg/dL (65-99) H 03/29/21 17:17 Lactic Acid 1.7 mmol/L (0.4-2.0) 03/26/21 15:06 Calcium 8.6 mg/dL (8.5-10.1) 03/29/21 05:05 Corrected Calcium 10.0 mg/dL (8.5-10.1) 03/29/21 05:05 Magnesium 1.4 mg/dL (1.7-2.9) L 03/27/21 04:42 Total Bilirubin 0.60 mg/dL (0.2-1.0) 03/29/21 05:05 AST 29 Units/L (15-37) 03/29/21 05:05 ALT 18 Units/L (12-78) 03/29/21 05:05 Alkaline Phosphatase 80 Units/L (46-116) 03/29/21 05:05 Creatine Kinase 832 Units/L (39-308) H 03/27/21 14:15 CK-MB (CK-2) 6.2 ng/mL (0-4.0) H* 03/27/21 14:15 CK/CKMB % Calc 0.8 % (<4) 03/27/21 14:15 Troponin I < 0.02 ng/mL (0-1.5) 03/27/21 14:15 Total Protein 5.4 g/dL (6.4-8.2) L 03/29/21 05:05 Albumin 2.3 g/dL (3.4-5.0) L 03/29/21 05:05 Globulin 3.1 g/dL (2.5-4.5) 03/29/21 05:05 Albumin/Globulin Ratio 0.7 Ratio (1.1-2.1) L 03/29/21 05:05 Specimen Type Catherized urine 03/27/21 04:15 Urine Color Yellow (YELLOW) 03/27/21 04:15 Urine Appearance Clear (CLEAR) 03/27/21 04:15 Urine pH 5.0 (5.0 - 8.0) 03/27/21 04:15 Ur Specific [place] 1.020 (1.000-1.030) 03/27/21 04:15 Urine Protein 1+ (NEGATIVE) 03/27/21 04:15 Urine Glucose (UA) Negative (NEGATIVE) 03/27/21 04:15 Urine Ketones Negative (NEGATIVE) 03/27/21 04:15 Urine Occult Blood 4+ (NEGATIVE) 03/27/21 04:15 Urine Nitrite Negative (NEGATIVE) 03/27/21 04:15 Urine Bilirubin Negative (NEGATIVE) 03/27/21 04:15 Urine Urobilinogen Normal (NORMAL) 03/27/21 04:15 Ur Leukocyte Esterase Negative (NEGATIVE) 03/27/21 04:15 Urine RBC 3-5 /HPF (0-3) A 03/27/21 04:15 Urine WBC 0-2 /HPF (0-5) 03/27/21 04:15 Ur Squamous Epith Cells Negative /HPF (NEGATIVE) 03/27/21 04:15 Urine Bacteria Negative /HPF (NEGATIVE) 03/27/21 04:15 Ur Culture Indicated? No/not indicated 03/27/21 04:15 Influenza Type A Ag Negative-presumptive (NEGATIVE) 03/27/21 13:17 Influenza Type B Ag Negative-presumptive (NEGATIVE) 03/27/21 13:17 Resp Viral Panel (PCR) See scanned report 03/27/21 13:17 SARS CoV-2 RNA Rapid CAMRYN Negative (NEGATIVE) 03/26/21 18:29 - Plan (1) Chronic respiratory failure with hypoxia, on home O2 therapy Status: Acute Plan: Home oxygen. Supplemental oxygen prn (2) ROYA (acute kidney injury) Status: Acute Plan: IV fluids (3) AMS (altered mental status) Status: Acute Qualifiers: Altered mental status type: disorientation Qualified Code(s): R41.0 - Disorientation, unspecified Plan: Secondary to above. Improved (4) COPD exacerbation Status: Acute Plan: IV abx, steroids, cultures pending. Repeat labs, CXR, and ABG in am (5) Leukocytosis Status: Acute Plan: Improved (6) Pneumonia Status: Acute Qualifiers: Pneumonia type: due to unspecified organism Laterality: right Lung location: middle lobe of lung Qualified Code(s): J18.9 - Pneumonia, unspecified organism Plan: See above (7) Sepsis Status: Acute Plan: IV abx. IV fluids. Cultures pend. Duo nebs. Repeat CXR and labs in am (8) Generalized weakness Status: Chronic Plan: Physical therapy (9) Hypoxia Status: Chronic Plan: Supplemental oxygen. Improved (10) Hypotension Status: Acute Plan: Improved. Wean Levophed drip as tolerated
--- NOTE | 2021-03-29 18:37 | PCM.PROG ---
Progress Note - Subjective Subjective: Patient is an 85 year old white male who was admitted due to HPI. Levophed drip has been discontinued. BP improved. WBC improved. Patient has home med of morphine PO; patient received a dose earlier and became AMS pulling at tubes, IVs, pulled out central line, getting out of bed without assistance, pulling off oxygen. Nursing staff reports he was forgetful during this time as well however he continued to be alert. Staff reports he was difficult to redirect. PO morphine has been placed on hold. Patient tolerating oxygen via nasal cannula. 1 hour critical care time spent with patient. Questions answered and concerns addressed. - Past Medical Family Social History Past Med/Fam/Surg Hx: No changes since H&P Allergies: Allergies codeine Allergy (Verified 02/09/20 18:16) iodine Allergy (Verified 02/09/20 18:16) - Review of Systems ROS: No change since H&P - Vital Signs and I&O's Vital Signs: Temperature 98.7 F Pulse Rate [Left Radial] 71 Pulse Rate 91 Respiratory Rate 28 Blood Pressure [Right Arm] 135/58 Blood Pressure 125/59 O2 Sat by Pulse Oximetry 98 Intake and Output: Intake & Output 03/26/21 03/27/21 03/28/21 03/29/21 23:59 23:59 23:59 23:59 Intake Total 1670.00 / 1670.00 1510 / 1510 1965 / 1965 910 / 910 Output Total 800 / 800 1949 / 1950 2350 / 2350 725 / 725 Balance 870.00 / 870.00 -440 / -440 -384 / -384 185 / 185 - Physical Exam Oriented: Not Oriented (confused) Eyes: Normal Ear: Normal Nose: Normal Throat: Dry Respiratory: Wheezes (throughout) Cardiovascular: Normal : Normal Auscultation: Bowel Sounds: Normal Palpation: Normal Tenderness: Normal Skin: Normal Musculoskeletal: Back:Thoracic, Back:Lumbar, Tender (generalized weakness) Psychiatric: Agitation Mood Description: Anxious Affect: Anxious Speech Pattern: Clear, Inappropriate - Laboratory and Diagnostics Result Diagrams: 03/29/21 05:05 03/29/21 05:05 Labs: 03/27/21 04:15 Sputum - Expectorated Sputum Sputum Culture - Final 03/27/21 04:15 Sputum - Expectorated Sputum - Final 03/26/21 15:39 Blood Blood Culture - Preliminary 03/26/21 15:06 Blood Blood Culture - Preliminary Laboratory WBC 8.9 X10^3/uL (3.6-10.0) 03/29/21 05:05 RBC 3.07 X10^6/uL (4.7-6.0) L 03/29/21 05:05 Hgb 9.3 g/dL (13.5-18.0) L 03/29/21 05:05 Hct 27.2 % (42.0-54.0) L 03/29/21 05:05 MCV 88.7 fL (80.0-100.0) 03/29/21 05:05 MCH 30.5 pg (27.0-34.0) 03/29/21 05:05 MCHC 34.3 g/dL (33.0-35.0) 03/29/21 05:05 RDW 15.9 % (11.6-16.5) 03/29/21 05:05 Plt Count 78 X10^3/uL (150.0-450.0) L 03/29/21 05:05 Plt Count Comment Decreased (ADEQUATE) 03/29/21 05:05 MPV 10.4 fL (7.4-11.0) 03/29/21 05:05 Neut % (Auto) 93.3 % (42.0-75.0) H 03/29/21 05:05 Lymph % (Auto) 5.1 % (21.0-51.0) L 03/29/21 05:05 [place] % (Auto) 1.5 % (0.0-13.0) 03/29/21 05:05 Eos % (Auto) 0.0 % (0.9-2.9) L 03/29/21 05:05 Baso % (Auto) 0.1 % (0.2-1.0) L 03/29/21 05:05 Neut # (Auto) 8.3 x10^3/uL (2.2-4.8) H 03/29/21 05:05 Lymph # (Auto) 0.5 X10^3/uL (1.3-2.9) L 03/29/21 05:05 [place] # (Auto) 0.1 x10^3/uL (0.3-0.8) L 03/29/21 05:05 Eos # (Auto) 0.0 x10^3/uL (0.0-0.2) 03/29/21 05:05 Baso # (Auto) 0.0 X10^3/uL (0.0-0.1) 03/29/21 05:05 Absolute Nucleated RBC 0.1 /100WBC 03/29/21 05:05 Total Counted 100 03/29/21 05:05 Neutrophils % (Manual) 97 % (39-76) H 03/29/21 05:05 Band Neutrophils % 1 % (0-10) 03/29/21 05:05 Lymphocytes % (Manual) 2 % (13-43) L 03/29/21 05:05 Plt Morphology Comment Normal (NORMAL) 03/29/21 05:05 RBC Morphology Normal (NORMAL) 03/29/21 05:05 PT 14.6 SECONDS (11.8-14.3) 03/27/21 04:42 INR Target Range - 03/27/21 04:42 INR 1.20 (0.8-1.3) 03/27/21 04:42 APTT 37.2 SECONDS (22.9-36.5) H 03/27/21 04:42 PTT Comment - 03/27/21 04:42 Sample Site Rb 03/29/21 16:28 ABG pH 7.410 (7.35-7.45) 03/29/21 16:28 ABG pCO2 41.0 mmHg (35.0-45.0) 03/29/21 16:28 ABG pO2 95.0 mmHg (80.0-100.0) 03/29/21 16:28 ABG HCO3 26.0 mmol/L (22-26) 03/29/21 16:28 ABG O2 Saturation 97.0 % (90-100) 03/29/21 16:28 ABG Base Excess 1.2 mmol/L (-2.0-2.0) 03/29/21 16:28 Romain Test Pos 03/29/21 16:28 A-a Gradient 53.0 mmHg 03/29/21 16:28 FiO2 28.0 03/29/21 16:28 Blood Gas Comments Pt donna well. gb 03/29/21 16:28 Sodium 140 mmol/L (136-145) 03/29/21 05:05 Corrected Sodium 141 mmol/L (136-145) 03/29/21 05:05 Potassium 3.5 mmol/L (3.5-5.1) 03/29/21 05:05 Chloride 107 mmol/L (98-107) 03/29/21 05:05 Carbon Dioxide 23.7 mmol/L (21-32) 03/29/21 05:05 BUN 16 mg/dL (7-18) 03/29/21 05:05 Creatinine 0.81 mg/dL (0.70-1.30) 03/29/21 05:05 Est GFR (MDRD) Af Amer > 60 (>60) 03/29/21 05:05 Est GFR (MDRD) Non-Af > 60 (>60) 03/29/21 05:05 Glucose 162 mg/dL (65-99) H 03/29/21 05:05 POC Glucose (mg/dL) 150 mg/dL (65-99) H 03/29/21 17:17 Lactic Acid 1.7 mmol/L (0.4-2.0) 03/26/21 15:06 Calcium 8.6 mg/dL (8.5-10.1) 03/29/21 05:05 Corrected Calcium 10.0 mg/dL (8.5-10.1) 03/29/21 05:05 Magnesium 1.4 mg/dL (1.7-2.9) L 03/27/21 04:42 Total Bilirubin 0.60 mg/dL (0.2-1.0) 03/29/21 05:05 AST 29 Units/L (15-37) 03/29/21 05:05 ALT 18 Units/L (12-78) 03/29/21 05:05 Alkaline Phosphatase 80 Units/L (46-116) 03/29/21 05:05 Creatine Kinase 832 Units/L (39-308) H 03/27/21 14:15 CK-MB (CK-2) 6.2 ng/mL (0-4.0) H* 03/27/21 14:15 CK/CKMB % Calc 0.8 % (<4) 03/27/21 14:15 Troponin I < 0.02 ng/mL (0-1.5) 03/27/21 14:15 Total Protein 5.4 g/dL (6.4-8.2) L 03/29/21 05:05 Albumin 2.3 g/dL (3.4-5.0) L 03/29/21 05:05 Globulin 3.1 g/dL (2.5-4.5) 03/29/21 05:05 Albumin/Globulin Ratio 0.7 Ratio (1.1-2.1) L 03/29/21 05:05 Specimen Type Catherized urine 03/27/21 04:15 Urine Color Yellow (YELLOW) 03/27/21 04:15 Urine Appearance Clear (CLEAR) 03/27/21 04:15 Urine pH 5.0 (5.0 - 8.0) 03/27/21 04:15 Ur Specific [place] 1.020 (1.000-1.030) 03/27/21 04:15 Urine Protein 1+ (NEGATIVE) 03/27/21 04:15 Urine Glucose (UA) Negative (NEGATIVE) 03/27/21 04:15 Urine Ketones Negative (NEGATIVE) 03/27/21 04:15 Urine Occult Blood 4+ (NEGATIVE) 03/27/21 04:15 Urine Nitrite Negative (NEGATIVE) 03/27/21 04:15 Urine Bilirubin Negative (NEGATIVE) 03/27/21 04:15 Urine Urobilinogen Normal (NORMAL) 03/27/21 04:15 Ur Leukocyte Esterase Negative (NEGATIVE) 03/27/21 04:15 Urine RBC 3-5 /HPF (0-3) A 03/27/21 04:15 Urine WBC 0-2 /HPF (0-5) 03/27/21 04:15 Ur Squamous Epith Cells Negative /HPF (NEGATIVE) 03/27/21 04:15 Urine Bacteria Negative /HPF (NEGATIVE) 03/27/21 04:15 Ur Culture Indicated? No/not indicated 03/27/21 04:15 Influenza Type A Ag Negative-presumptive (NEGATIVE) 03/27/21 13:17 Influenza Type B Ag Negative-presumptive (NEGATIVE) 03/27/21 13:17 Resp Viral Panel (PCR) See scanned report 03/27/21 13:17 SARS CoV-2 RNA Rapid CAMRYN Negative (NEGATIVE) 03/26/21 18:29 - Plan (1) Chronic respiratory failure with hypoxia, on home O2 therapy Status: Acute Plan: Home oxygen. Supplemental oxygen prn (2) ROYA (acute kidney injury) Status: Acute Plan: IV fluids (3) AMS (altered mental status) Status: Acute Qualifiers: Altered mental status type: disorientation Qualified Code(s): R41.0 - Disorientation, unspecified Plan: Secondary to above. Likely due to PO morphine. Hold PO morphine (4) COPD exacerbation Status: Acute Plan: IV abx, steroids, cultures pending. Repeat labs, CXR, and ABG in am (5) Leukocytosis Status: Acute Plan: Improved (6) Pneumonia Status: Acute Qualifiers: Pneumonia type: due to unspecified organism Laterality: right Lung l ocation: middle lobe of lung Qualified Code(s): J18.9 - Pneumonia, unspecified organism Plan: See above (7) Sepsis Status: Acute Plan: IV abx. IV fluids. Cultures pend. Duo nebs. Repeat CXR and labs in am (8) Generalized weakness Status: Chronic Plan: Physical therapy (9) Hypoxia Status: Chronic Plan: Supplemental oxygen. Improved (10) Hypotension Status: Acute Plan: Improved
[2021-03-29] MEDS: LIPITOR TAB 20 MG PO SCH (21:15)
[2021-03-29] MEDS: PEPCID TAB 40 MG PO SCH (21:15)
[2021-03-29] MEDS: CARDURA PO SCH (21:15)
[2021-03-29] MEDS: HumaLOG SC PRN (21:46)
[2021-03-30 05:20] LABS: BASOPHILS % (AUTO) 0.1 % (0.2-1.0); HEMATOCRIT 26.5 % (42.0-54.0); LYMPHOCYTES # (AUTO) 0.4 X10^3/uL (1.3-2.9); LYMPHOCYTES % (AUTO) 6.2 % (21.0-51.0); MEAN CORPUSCULAR HEMOGLOBIN 29.9 pg (27.0-34.0); MEAN CORPUSCULAR HGB CONC 33.8 g/dL (33.0-35.0); MEAN CORPUSCULAR VOLUME 88.4 fL (80.0-100.0); MONOCYTES # (AUTO) 0.2 x10^3/uL (0.3-0.8); MONOCYTES % (AUTO) 2.6 % (0.0-13.0); NEUTROPHILS # (AUTO) 6.5 x10^3/uL (2.2-4.8); NEUTROPHILS % (AUTO) 91.1 % (42.0-75.0); PLATELET COUNT 101 X10^3/uL (150.0-450.0); RED BLOOD COUNT 2.99 X10^6/uL (4.7-6.0); WHITE BLOOD COUNT 7.2 X10^3/uL (3.6-10.0)
[2021-03-30 05:33] LABS: ALANINE AMINOTRANSFERASE 23 Units/L (12-78); ALBUMIN 2.3 g/dL (3.4-5.0); ALKALINE PHOSPHATASE 70 Units/L (46-116); ASPARTATE AMINO TRANSFERASE 24 Units/L (15-37); BLOOD UREA NITROGEN 22 mg/dL (7-18); CALCIUM 8.6 mg/dL (8.5-10.1); CARBON DIOXIDE 27.5 mmol/L (21-32); CHLORIDE 107 mmol/L (98-107); COR NA(FOR HYPERGLY) 143 mmol/L (136-145); CREATININE 0.94 mg/dL (0.70-1.30); SODIUM 142 mmol/L (136-145); TOTAL PROTEIN 5.6 g/dL (6.4-8.2); eGFR NON BLACK RACES > 60 (>60)
[2021-03-30 05:43] LABS: ABG ALLEN TEST POS; ABG BASE EXCESS 3.3 mmol/L (-2.0-2.0); ABG HCO3 28.5 mmol/L (22-26)
[2021-03-30 05:58] LABS: BAND NEUTROPHILS % 1 % (0-10); PLATELET MORPHOLOGY COMMENT NORMAL (NORMAL)
[2021-03-30 05:59] LABS: HYPOCHROMASIA SLIGHT
[2021-03-30] MEDS: ZOSYN VIAL 3.375 GRAMS 3.375 G in NS 100 ML IV + SPIKE MINIBAG* 100 ML IV SCH ×3 (06:00→21:00)
[2021-03-30] MEDS: XOPENEX 1.25 MG/3 ML NEBULE NEB SCH ×4 (06:14→20:04)
--- NOTE | 2021-03-30 06:27 | RAD ---
HISTORYCOPD HX: CAD, HTN, COPD, DM SX: PACEMAKERSTUDYCHEST, 1 VIEWCOMPARISONChest x-ray dated March 29, 2021.FINDINGSThe trachea is midline. The cardiac silhouette is unchanged. Stable appearance of a multi lead left chest cardiac pacemaker. Patchy airspace disease within the left lower lobe appears unchanged. Remaining lungs are clear. No obvious pleural effusion or pneumothorax. The bony thorax is unremarkable.IMPRESSIONNo significant change.Electronically signed by: RIKA THOMASON (Mar 30, 2021 06:24:41)
[2021-03-30] MEDS ORDERED: POTASSIUM CHL 40 MEQ/NS 0.45% 500 ML IV PRN (06:50)
[2021-03-30] MEDS ORDERED: POTASSIUM CHLORIDE LIQ 20 MEQ UDC PO PRN (06:50)
[2021-03-30] MEDS ORDERED: POTASSIUM CHL 60 MEQ/NS 0.45% 500 ML IV PRN (06:50)
[2021-03-30] MEDS ORDERED: MICRO K EXTEN CAP 10 MEQ PO PRN (06:50)
[2021-03-30] MEDS ORDERED: K-RIDER 10 MEQ/NS 100 ML 10 MEQ/100 ML BAG IV PRN (06:50)
[2021-03-30] MEDS: GLUCOPHAGE PO SCH ×2 (07:50→17:30)
[2021-03-30] MEDS ORDERED: GLUCOPHAGE ONE ×2 (08:11→13:50)
[2021-03-30] MEDS ORDERED: NS 100 ML IV 100 ML ONE (08:46)
[2021-03-30] MEDS: ACTOS PO SCH (09:25)
[2021-03-30] MEDS: ASTELIN NASAL SPRAY ENOSTRIL SCH (09:25)
[2021-03-30] MEDS: SOLU-Medrol 40 MG VIAL IVP SCH ×2 (09:26→21:00)
[2021-03-30] MEDS: LASIX PO SCH (09:26)
[2021-03-30] MEDS: ZITHROMAX INJ 500 MG VIAL 500 MG in NS 250 ML IV 250 ML IV SCH (09:26)
[2021-03-30] MEDS: ZYLOPRIM PO SCH (09:26)
[2021-03-30] MEDS: LYRICA CAP 75 mg PO SCH ×2 (09:26→21:00)
[2021-03-30] MEDS: NexIUM PO SCH (09:26)
[2021-03-30] MEDS: REQUIP PO SCH ×2 (09:45→21:00)
[2021-03-30] MEDS: K-DUR TAB 20 MEQ PO PRN ×2 (09:45→09:48)
[2021-03-30] MEDS: NS 1,000 ML IV 1,000 ML IV SCH (16:03)
[2021-03-30] MEDS: HumaLOG SC PRN ×2 (16:25→21:00)
[2021-03-30] MEDS: MAGNESIUM SULFATE 1 GRAM/100 mL PREMIX 1 G/100 ML BAG IV PRN (18:04)
[2021-03-30] MEDS: LIPITOR TAB 20 MG PO SCH (21:00)
[2021-03-30] MEDS: PEPCID TAB 40 MG PO SCH (21:00)
[2021-03-30] MEDS: CARDURA PO SCH (21:00)
[2021-03-31] MEDS: NORCO 10/325 TAB PO PRN ×3 (01:40→21:09)
[2021-03-31 05:30] LABS: BASOPHILS % (AUTO) 0.2 % (0.2-1.0); HEMATOCRIT 27.4 % (42.0-54.0); HEMOGLOBIN 9.2 g/dL (13.5-18.0); LYMPHOCYTES # (AUTO) 0.4 X10^3/uL (1.3-2.9); LYMPHOCYTES % (AUTO) 8.2 % (21.0-51.0); MEAN CORPUSCULAR HEMOGLOBIN 29.4 pg (27.0-34.0); MEAN CORPUSCULAR HGB CONC 33.6 g/dL (33.0-35.0); MEAN CORPUSCULAR VOLUME 87.3 fL (80.0-100.0); MEAN PLATELET VOLUME 10.2 fL (7.4-11.0); MONOCYTES # (AUTO) 0.2 x10^3/uL (0.3-0.8); MONOCYTES % (AUTO) 4.4 % (0.0-13.0); NEUTROPHILS # (AUTO) 4.7 x10^3/uL (2.2-4.8); NEUTROPHILS % (AUTO) 87.2 % (42.0-75.0); PLATELET COUNT 107 X10^3/uL (150.0-450.0); RED BLOOD COUNT 3.14 X10^6/uL (4.7-6.0); RED CELL DISTRIBUTION WIDTH 15.8 % (11.6-16.5); WHITE BLOOD COUNT 5.4 X10^3/uL (3.6-10.0)
[2021-03-31 05:49] LABS: ALANINE AMINOTRANSFERASE 24 Units/L (12-78); ALBUMIN 2.3 g/dL (3.4-5.0); ALKALINE PHOSPHATASE 63 Units/L (46-116); ASPARTATE AMINO TRANSFERASE 23 Units/L (15-37); BLOOD UREA NITROGEN 23 mg/dL (7-18); CALCIUM 8.4 mg/dL (8.5-10.1); CARBON DIOXIDE 29.2 mmol/L (21-32); CHLORIDE 104 mmol/L (98-107); COR CA(FOR HYPOALB) 9.8 mg/dL (8.5-10.1); COR NA(FOR HYPERGLY) 142 mmol/L (136-145); MAGNESIUM 2.1 mg/dL (1.7-2.9); SODIUM 141 mmol/L (136-145); TOTAL PROTEIN 5.5 g/dL (6.4-8.2); eGFR NON BLACK RACES > 60 (>60)
[2021-03-31] MEDS: ZOSYN VIAL 3.375 GRAMS 3.375 G in NS 100 ML IV + SPIKE MINIBAG* 100 ML IV SCH ×3 (06:00→21:04)
[2021-03-31] MEDS: K-DUR TAB 20 MEQ PO PRN ×2 (06:10→16:40)
[2021-03-31] MEDS: XOPENEX 1.25 MG/3 ML NEBULE NEB SCH ×3 (06:19→21:46)
[2021-03-31] MEDS ORDERED: GLUCOPHAGE ONE ×2 (07:51→15:33)
[2021-03-31] MEDS: GLUCOPHAGE PO SCH ×2 (07:53→16:41)
[2021-03-31] MEDS: ZYLOPRIM PO SCH (08:08)
[2021-03-31] MEDS: ACTOS PO SCH (08:08)
[2021-03-31] MEDS: NexIUM PO SCH (08:09)
[2021-03-31] MEDS: LASIX PO SCH (08:09)
[2021-03-31] MEDS: REQUIP PO SCH ×2 (08:09→21:04)
[2021-03-31] MEDS: LYRICA CAP 75 mg PO SCH ×2 (08:10→21:05)
[2021-03-31] MEDS: ASTELIN NASAL SPRAY ENOSTRIL SCH (08:28)
[2021-03-31] MEDS: ZITHROMAX INJ 500 MG VIAL 500 MG in NS 250 ML IV 250 ML IV SCH (08:51)
[2021-03-31] MEDS: NS 1,000 ML IV 1,000 ML IV SCH (14:36)
[2021-03-31] MEDS: CARDURA PO SCH (21:03)
[2021-03-31] MEDS: LIPITOR TAB 20 MG PO SCH (21:04)
[2021-03-31] MEDS: PEPCID TAB 40 MG PO SCH (21:04)
[2021-03-31] MEDS ORDERED: MICRO K EXTEN CAP 10 MEQ PO PRN (21:28)
[2021-04-01 05:09] LABS: BASOPHILS % (AUTO) 0 % (0.2-1.0); EOSINOPHILS % (AUTO) 0.4 % (0.9-2.9); HEMATOCRIT 26.8 % (42.0-54.0); HEMOGLOBIN 9.1 g/dL (13.5-18.0); LYMPHOCYTES # (AUTO) 1.6 X10^3/uL (1.3-2.9); LYMPHOCYTES % (AUTO) 23.6 % (21.0-51.0); MEAN CORPUSCULAR HEMOGLOBIN 29.8 pg (27.0-34.0); MEAN CORPUSCULAR HGB CONC 33.9 g/dL (33.0-35.0); MEAN CORPUSCULAR VOLUME 87.8 fL (80.0-100.0); MEAN PLATELET VOLUME 9.7 fL (7.4-11.0); MONOCYTES # (AUTO) 0.6 x10^3/uL (0.3-0.8); MONOCYTES % (AUTO) 9.2 % (0.0-13.0); NEUTROPHILS # (AUTO) 4.7 x10^3/uL (2.2-4.8); NEUTROPHILS % (AUTO) 66.8 % (42.0-75.0); PLATELET COUNT 112 X10^3/uL (150.0-450.0); RED BLOOD COUNT 3.05 X10^6/uL (4.7-6.0)
[2021-04-01] MEDS: NORCO 10/325 TAB PO PRN ×3 (05:15→18:30)
[2021-04-01] MEDS: ZOSYN VIAL 3.375 GRAMS 3.375 G in NS 100 ML IV + SPIKE MINIBAG* 100 ML IV SCH ×3 (05:15→21:21)
[2021-04-01 05:21] LABS: ALANINE AMINOTRANSFERASE 22 Units/L (12-78); ALBUMIN 2.2 g/dL (3.4-5.0); ALKALINE PHOSPHATASE 52 Units/L (46-116); ASPARTATE AMINO TRANSFERASE 18 Units/L (15-37); BLOOD UREA NITROGEN 19 mg/dL (7-18); CARBON DIOXIDE 31.6 mmol/L (21-32); CHLORIDE 106 mmol/L (98-107); COR CA(FOR HYPOALB) 9.4 mg/dL (8.5-10.1); CREATININE 1.04 mg/dL (0.70-1.30); MAGNESIUM 1.7 mg/dL (1.7-2.9); SODIUM 142 mmol/L (136-145); TOTAL PROTEIN 4.9 g/dL (6.4-8.2); eGFR NON BLACK RACES > 60 (>60)
[2021-04-01] MEDS: MAGNESIUM SULFATE 1 GRAM/100 mL PREMIX 1 G/100 ML BAG IV PRN ×2 (05:41→06:39)
[2021-04-01] MEDS: K-DUR TAB 20 MEQ PO PRN (05:41)
[2021-04-01] MEDS: XOPENEX 1.25 MG/3 ML NEBULE NEB SCH ×3 (06:19→20:00)
[2021-04-01] MEDS ORDERED: GLUCOPHAGE ONE ×2 (08:23→17:12)
[2021-04-01] MEDS: ZYLOPRIM PO SCH (08:30)
[2021-04-01] MEDS: LYRICA CAP 75 mg PO SCH ×2 (08:30→20:04)
[2021-04-01] MEDS: REQUIP PO SCH ×2 (08:31→20:05)
[2021-04-01] MEDS: LASIX PO SCH (08:31)
[2021-04-01] MEDS: NexIUM PO SCH (08:31)
[2021-04-01] MEDS: ACTOS PO SCH (08:32)
[2021-04-01] MEDS: ASTELIN NASAL SPRAY ENOSTRIL SCH (08:32)
[2021-04-01] MEDS: LOVENOX INJ 40 MG SYR SC SCH (08:32)
[2021-04-01] MEDS: GLUCOPHAGE PO SCH ×2 (08:32→17:25)
[2021-04-01] MEDS: ZITHROMAX INJ 500 MG VIAL 500 MG in NS 250 ML IV 250 ML IV SCH (09:01)
[2021-04-01] MEDS: KLOR-CON PO PRN ×2 (09:38→14:42)
[2021-04-01] MEDS: NS 1,000 ML IV 1,000 ML IV SCH (16:58)
[2021-04-01] MEDS: CARDURA PO SCH (20:03)
[2021-04-01] MEDS: LIPITOR TAB 20 MG PO SCH (20:04)
[2021-04-01] MEDS: NYSTATIN SUSP PO SCH (20:04)
[2021-04-01] MEDS: PEPCID TAB 40 MG PO SCH (20:04)
[2021-04-02] MEDS: NORCO 10/325 TAB PO PRN ×2 (00:50→06:28)
[2021-04-02 05:15] LABS: ABG ALLEN TEST POS; ABG BASE EXCESS 9.5 mmol/L (-2.0-2.0); ABG HCO3 34.8 mmol/L (22-26)
[2021-04-02] MEDS: XOPENEX 1.25 MG/3 ML NEBULE NEB SCH ×3 (05:17→20:55)
[2021-04-02] MEDS ORDERED: GLUCOPHAGE ONE ×2 (05:19→17:25)
[2021-04-02 05:24] LABS: BASOPHILS % (AUTO) 0.2 % (0.2-1.0); EOSINOPHILS # (AUTO) 0.3 x10^3/uL (0.0-0.2); EOSINOPHILS % (AUTO) 4.2 % (0.9-2.9); HEMOGLOBIN 9.8 g/dL (13.5-18.0); LYMPHOCYTES # (AUTO) 1.8 X10^3/uL (1.3-2.9); MEAN CORPUSCULAR HEMOGLOBIN 29.8 pg (27.0-34.0); MEAN CORPUSCULAR HGB CONC 33.8 g/dL (33.0-35.0); MEAN CORPUSCULAR VOLUME 88.4 fL (80.0-100.0); MEAN PLATELET VOLUME 9.4 fL (7.4-11.0); MONOCYTES # (AUTO) 0.5 x10^3/uL (0.3-0.8); MONOCYTES % (AUTO) 7.9 % (0.0-13.0); NEUTROPHILS % (AUTO) 60.7 % (42.0-75.0); PLATELET COUNT 121 X10^3/uL (150.0-450.0); RED BLOOD COUNT 3.28 X10^6/uL (4.7-6.0); RED CELL DISTRIBUTION WIDTH 16.3 % (11.6-16.5); WHITE BLOOD COUNT 6.6 X10^3/uL (3.6-10.0)
[2021-04-02 05:31] LABS: ALANINE AMINOTRANSFERASE 22 Units/L (12-78); ALBUMIN 2.4 g/dL (3.4-5.0); ALKALINE PHOSPHATASE 53 Units/L (46-116); ASPARTATE AMINO TRANSFERASE 17 Units/L (15-37); BLOOD UREA NITROGEN 13 mg/dL (7-18); CALCIUM 8.2 mg/dL (8.5-10.1); CARBON DIOXIDE 32.6 mmol/L (21-32); CHLORIDE 104 mmol/L (98-107); COR CA(FOR HYPOALB) 9.5 mg/dL (8.5-10.1); CREATININE 1.11 mg/dL (0.70-1.30); MAGNESIUM 1.7 mg/dL (1.7-2.9); SODIUM 142 mmol/L (136-145); TOTAL PROTEIN 5.2 g/dL (6.4-8.2); eGFR NON BLACK RACES > 60 (>60)
[2021-04-02] MEDS: ZOSYN VIAL 3.375 GRAMS 3.375 G in NS 100 ML IV + SPIKE MINIBAG* 100 ML IV SCH ×3 (05:40→22:00)
--- NOTE | 2021-04-02 05:45 | RAD ---
HISTORYPNEUMONIA DIABETES, MYOCARDIAL, MYEOPATHY, ABD, PACEMAKERSTUDYCHEST, 1 [id number]/06/2021FINDINGSThe trachea is midline. Permanent pacing device. The cardiac silhouette is unchanged.. Patchy airspace disease within the left lung base unchanged. Left upper and right lung vicente are clear. No pneumothorax.. The bony thorax is unremarkable.IMPRESSIONPatchy left basilar airspace disease unchanged from 03/30/2021.Electronically signed by: Ralph Mortensen (Apr 02, 2021 05:42:43)
[2021-04-02] MEDS: GLUCOPHAGE PO SCH ×2 (08:05→17:36)
[2021-04-02] MEDS: ZYLOPRIM PO SCH (08:07)
[2021-04-02] MEDS: REQUIP PO SCH ×2 (08:07→20:10)
[2021-04-02] MEDS: NYSTATIN SUSP PO SCH ×4 (08:08→20:08)
[2021-04-02] MEDS: NexIUM PO SCH (08:08)
[2021-04-02] MEDS: K-DUR TAB 20 MEQ PO SCH (08:09)
[2021-04-02] MEDS: LYRICA CAP 75 mg PO SCH ×2 (08:09→20:08)
[2021-04-02] MEDS: LASIX PO SCH (08:09)
[2021-04-02] MEDS: ACTOS PO SCH (08:10)
[2021-04-02] MEDS: LOVENOX INJ 40 MG SYR SC SCH (08:10)
[2021-04-02] MEDS: ASTELIN NASAL SPRAY ENOSTRIL SCH (08:10)
[2021-04-02 08:44] VITALS: BMI 28.5
[2021-04-02] MEDS: ZITHROMAX INJ 500 MG VIAL 500 MG in NS 250 ML IV 250 ML IV SCH (09:45)
[2021-04-02] MEDS: NS 1,000 ML IV 1,000 ML IV SCH (17:23)
--- NOTE | 2021-04-02 17:44 | PCM.PROG ---
Progress Note - Progress Note for Day of Date of Exam: 04/01/21 - Subjective Subjective: Patient is an 85 year old white male who was admitted due to HPI. Patient tolerating oxygen via nasal cannula. Mentation improved from previous. Patient working with PT. Questions answered and concerns addressed. - Past Medical Family Social History Past Med/Fam/Surg Hx: No changes since H&P Allergies: Allergies codeine Allergy (Verified 02/09/20 18:16) iodine Allergy (Verified 02/09/20 18:16) - Review of Systems ROS: No change since H&P - Vital Signs and I&O's Vital Signs: Temperature 98.2 F Pulse Rate [Left Radial] 71 Pulse Rate 86 Respiratory Rate 24 Blood Pressure [Right Arm] 135/58 Blood Pressure 136/76 O2 Sat by Pulse Oximetry 97 Intake and Output: Intake & Output 03/31/21 03/31/21 04/01/21 04/02/21 00:59 23:59 23:59 23:59 Intake Total 2578 / 2578 2506 / 2506 Output Total 400 / 400 Balance 2578 / 2578 2106 / 2106 - Physical Exam Oriented: Normal, Time, Person, Place Eyes: Normal Ear: Normal Nose: Normal Throat: Dry Respiratory: Rhonchi Cardiovascular: Normal : Normal Auscultation: Bowel Sounds: Normal Tenderness: Normal Skin: Normal Musculoskeletal: Back:Thoracic, Back:Lumbar, Tender (generalized weakness) Psychiatric: Agitation Mood Description: Anxious Affect: Anxious Speech Pattern: Clear - Laboratory and Diagnostics Result Diagrams: 04/02/21 05:05 04/02/21 05:05 Labs: 03/26/21 15:39 Blood Blood Culture - Final 03/26/21 15:06 Blood Blood Culture - Final 03/27/21 04:15 Sputum - Expectorated Sputum Sputum Culture - Final 03/27/21 04:15 Sputum - Expectorated Sputum - Final Laboratory WBC 6.6 X10^3/uL (3.6-10.0) 04/02/21 05:05 RBC 3.28 X10^6/uL (4.7-6.0) L 04/02/21 05:05 Hgb 9.8 g/dL (13.5-18.0) L 04/02/21 05:05 Hct 29.0 % (42.0-54.0) L 04/02/21 05:05 MCV 88.4 fL (80.0-100.0) 04/02/21 05:05 MCH 29.8 pg (27.0-34.0) 04/02/21 05:05 MCHC 33.8 g/dL (33.0-35.0) 04/02/21 05:05 RDW 16.3 % (11.6-16.5) 04/02/21 05:05 Plt Count 121 X10^3/uL (150.0-450.0) L 04/02/21 05:05 Plt Count Comment Decreased (ADEQUATE) 03/30/21 04:57 MPV 9.4 fL (7.4-11.0) 04/02/21 05:05 Neut % (Auto) 60.7 % (42.0-75.0) 04/02/21 05:05 Lymph % (Auto) 27.0 % (21.0-51.0) 04/02/21 05:05 [place] % (Auto) 7.9 % (0.0-13.0) 04/02/21 05:05 Eos % (Auto) 4.2 % (0.9-2.9) H 04/02/21 05:05 Baso % (Auto) 0.2 % (0.2-1.0) 04/02/21 05:05 Neut # (Auto) 4.0 x10^3/uL (2.2-4.8) 04/02/21 05:05 Lymph # (Auto) 1.8 X10^3/uL (1.3-2.9) 04/02/21 05:05 [place] # (Auto) 0.5 x10^3/uL (0.3-0.8) 04/02/21 05:05 Eos # (Auto) 0.3 x10^3/uL (0.0-0.2) H 04/02/21 05:05 Baso # (Auto) 0.0 X10^3/uL (0.0-0.1) 04/02/21 05:05 Absolute Nucleated RBC 0.1 /100WBC 04/02/21 05:05 Total Counted 100 03/30/21 04:57 Neutrophils % (Manual) 89 % (39-76) H 03/30/21 04:57 Band Neutrophils % 1 % (0-10) 03/30/21 04:57 Lymphocytes % (Manual) 8 % (13-43) L 03/30/21 04:57 Monocytes % (Manual) 2 % (4-9) L 03/30/21 04:57 Plt Morphology Comment Normal (NORMAL) 03/30/21 04:57 RBC Morphology Abnormal (NORMAL) 03/30/21 04:57 Hypochromasia Slight A 03/30/21 04:57 PT 14.6 SECONDS (11.8-14.3) 03/27/21 04:42 INR Target Range - 03/27/21 04:42 INR 1.20 (0.8-1.3) 03/27/21 04:42 APTT 37.2 SECONDS (22.9-36.5) H 03/27/21 04:42 PTT Comment - 03/27/21 04:42 Sample Site Lr 04/02/21 05:10 ABG pH 7.460 (7.35-7.45) H 04/02/21 05:10 ABG pCO2 49.0 mmHg (35.0-45.0) H 04/02/21 05:10 ABG pO2 57.0 mmHg (80.0-100.0) L 04/02/21 05:10 ABG HCO3 34.8 mmol/L (22-26) H* 04/02/21 05:10 ABG O2 Saturation 91.0 % (90-100) 04/02/21 05:10 ABG Base Excess 9.5 mmol/L (-2.0-2.0) H 04/02/21 05:10 Romain Test Pos 04/02/21 05:10 A-a Gradient 31.0 mmHg 04/02/21 05:10 FiO2 21.0 04/02/21 05:10 Blood Gas Comments Marianne well ae 04/02/21 05:10 Sodium 142 mmol/L (136-145) 04/02/21 05:05 Corrected Sodium TNP 04/02/21 05:05 Potassium 3.8 mmol/L (3.5-5.1) 04/02/21 05:05 Chloride 104 mmol/L (98-107) 04/02/21 05:05 Carbon Dioxide 32.6 mmol/L (21-32) H 04/02/21 05:05 BUN 13 mg/dL (7-18) 04/02/21 05:05 Creatinine 1.11 mg/dL (0.70-1.30) 04/02/21 05:05 Est GFR (MDRD) Af Amer > 60 (>60) 04/02/21 05:05 Est GFR (MDRD) Non-Af > 60 (>60) 04/02/21 05:05 Glucose 72 mg/dL (65-99) 04/02/21 05:05 POC Glucose (mg/dL) 116 mg/dL (65-99) H 04/02/21 16:39 Lactic Acid 1.7 mmol/L (0.4-2.0) 03/26/21 15:06 Calcium 8.2 mg/dL (8.5-10.1) L 04/02/21 05:05 Corrected Calcium 9.5 mg/dL (8.5-10.1) 04/02/21 05:05 Magnesium 1.7 mg/dL (1.7-2.9) 04/02/21 05:05 Total Bilirubin 0.50 mg/dL (0.2-1.0) 04/02/21 05:05 AST 17 Units/L (15-37) 04/02/21 05:05 ALT 22 Units/L (12-78) 04/02/21 05:05 Alkaline Phosphatase 53 Units/L (46-116) 04/02/21 05:05 Creatine Kinase 832 Units/L (39-308) H 03/27/21 14:15 CK-MB (CK-2) 6.2 ng/mL (0-4.0) H* 03/27/21 14:15 CK/CKMB % Calc 0.8 % (<4) 03/27/21 14:15 Troponin I < 0.02 ng/mL (0-1.5) 03/27/21 14:15 Total Protein 5.2 g/dL (6.4-8.2) L 04/02/21 05:05 Albumin 2.4 g/dL (3.4-5.0) L 04/02/21 05:05 Globulin 2.8 g/dL (2.5-4.5) 04/02/21 05:05 Albumin/Globulin Ratio 0.9 Ratio (1.1-2.1) L 04/02/21 05:05 Specimen Type Catherized urine 03/27/21 04:15 Urine Color Yellow (YELLOW) 03/27/21 04:15 Urine Appearance Clear (CLEAR) 03/27/21 04:15 Urine pH 5.0 (5.0 - 8.0) 03/27/21 04:15 Ur Specific [place] 1.020 (1.000-1.030) 03/27/21 04:15 Urine Protein 1+ (NEGATIVE) 03/27/21 04:15 Urine Glucose (UA) Negative (NEGATIVE) 03/27/21 04:15 Urine Ketones Negative (NEGATIVE) 03/27/21 04:15 Urine Occult Blood 4+ (NEGATIVE) 03/27/21 04:15 Urine Nitrite Negative (NEGATIVE) 03/27/21 04:15 Urine Bilirubin Negative (NEGATIVE) 03/27/21 04:15 Urine Urobilinogen Normal (NORMAL) 03/27/21 04:15 Ur Leukocyte Esterase Negative (NEGATIVE) 03/27/21 04:15 Urine RBC 3-5 /HPF (0-3) A 03/27/21 04:15 Urine WBC 0-2 /HPF (0-5) 03/27/21 04:15 Ur Squamous Epith Cells Negative /HPF (NEGATIVE) 03/27/21 04:15 Urine Bacteria Negative /HPF (NEGATIVE) 03/27/21 04:15 Ur Culture Indicated? No/not indicated 03/27/21 04:15 Influenza Type A Ag Negative-presumptive (NEGATIVE) 03/27/21 13:17 Influenza Type B Ag Negative-presumptive (NEGATIVE) 03/27/21 13:17 Resp Viral Panel (PCR) See scanned report 03/27/21 13:17 SARS CoV-2 RNA Rapid CAMRYN Negative (NEGATIVE) 03/26/21 18:29 - Plan (1) Sepsis Status: Acute Plan: IV abx. IV fluids. Cultures. Duo nebs. Repeat CXR and labs in am (2) Pneumonia Status: Acute Qualifiers: Pneumonia type: due to unspecified organism Laterality: right Lung location: middle lobe of lung Qualified Code(s): J18.9 - Pneumonia, unspec ified organism Plan: See above (3) Generalized weakness Status: Chronic Plan: Physical therapy (4) AMS (altered mental status) Status: Acute Qualifiers: Altered mental status type: disorientation Qualified Code(s): R41.0 - Disorientation, unspecified Plan: Secondary to above. Improved (5) Hypoxia Status: Chronic Plan: Supplemental oxygen. Improved (6) COPD exacerbation Status: Acute Plan: IV abx, steroids, cultures. Repeat labs, CXR, and ABG in am (7) Leukocytosis Status: Acute Plan: Improved (8) ROYA (acute kidney injury) Status: Acute Plan: IV fluids
[2021-04-02] MEDS: MAGNESIUM SULFATE 1 GRAM/100 mL PREMIX 1 G/100 ML BAG IV PRN ×2 (19:30→20:55)
[2021-04-02] MEDS: CARDURA PO SCH (20:06)
[2021-04-02] MEDS: LIPITOR TAB 20 MG PO SCH (20:07)
[2021-04-02] MEDS: PEPCID TAB 40 MG PO SCH (20:08)
[2021-04-03] MEDS ORDERED: GLUCOPHAGE ONE ×2 (04:07→16:50)
[2021-04-03] MEDS: NORCO 10/325 TAB PO PRN (04:22)
[2021-04-03] MEDS: ZOSYN VIAL 3.375 GRAMS 3.375 G in NS 100 ML IV + SPIKE MINIBAG* 100 ML IV SCH ×2 (05:00→13:25)
[2021-04-03 05:32] LABS: BASOPHILS % (AUTO) 0.4 % (0.2-1.0); EOSINOPHILS # (AUTO) 0.3 x10^3/uL (0.0-0.2); EOSINOPHILS % (AUTO) 4.8 % (0.9-2.9); HEMATOCRIT 29.4 % (42.0-54.0); HEMOGLOBIN 9.9 g/dL (13.5-18.0); LYMPHOCYTES # (AUTO) 1.6 X10^3/uL (1.3-2.9); LYMPHOCYTES % (AUTO) 21.7 % (21.0-51.0); MEAN CORPUSCULAR HGB CONC 33.8 g/dL (33.0-35.0); MEAN CORPUSCULAR VOLUME 88.9 fL (80.0-100.0); MONOCYTES # (AUTO) 0.5 x10^3/uL (0.3-0.8); MONOCYTES % (AUTO) 6.7 % (0.0-13.0); NEUTROPHILS # (AUTO) 4.8 x10^3/uL (2.2-4.8); NEUTROPHILS % (AUTO) 66.4 % (42.0-75.0); PLATELET COUNT 137 X10^3/uL (150.0-450.0); RED BLOOD COUNT 3.31 X10^6/uL (4.7-6.0); RED CELL DISTRIBUTION WIDTH 16.6 % (11.6-16.5); WHITE BLOOD COUNT 7.3 X10^3/uL (3.6-10.0)
[2021-04-03] MEDS: XOPENEX 1.25 MG/3 ML NEBULE NEB SCH ×2 (05:36→15:00)
[2021-04-03 05:50] LABS: ALANINE AMINOTRANSFERASE 18 Units/L (12-78); ALBUMIN 2.3 g/dL (3.4-5.0); ALKALINE PHOSPHATASE 50 Units/L (46-116); ASPARTATE AMINO TRANSFERASE 19 Units/L (15-37); BLOOD UREA NITROGEN 11 mg/dL (7-18); CALCIUM 8.3 mg/dL (8.5-10.1); CARBON DIOXIDE 36.1 mmol/L (21-32); CHLORIDE 104 mmol/L (98-107); COR CA(FOR HYPOALB) 9.7 mg/dL (8.5-10.1); CREATININE 1.21 mg/dL (0.70-1.30); SODIUM 141 mmol/L (136-145); TOTAL PROTEIN 5.1 g/dL (6.4-8.2); eGFR NON BLACK RACES > 60 (>60)
[2021-04-03] MEDS: GLUCOPHAGE PO SCH ×2 (06:14→16:55)
[2021-04-03] MEDS: KLOR-CON PO PRN (06:24)
[2021-04-03] MEDS: LASIX PO SCH (08:17)
[2021-04-03] MEDS: ZYLOPRIM PO SCH (08:17)
[2021-04-03] MEDS: ACTOS PO SCH (08:17)
[2021-04-03] MEDS: ASTELIN NASAL SPRAY ENOSTRIL SCH (08:17)
[2021-04-03] MEDS: LYRICA CAP 75 mg PO SCH (08:18)
[2021-04-03] MEDS: K-DUR TAB 20 MEQ PO SCH (08:18)
[2021-04-03] MEDS: REQUIP PO SCH (08:18)
[2021-04-03] MEDS: NexIUM PO SCH (08:19)
[2021-04-03] MEDS: LOVENOX INJ 40 MG SYR SC SCH (08:19)
[2021-04-03] MEDS: NYSTATIN SUSP PO SCH ×3 (08:20→16:56)
[2021-04-03] MEDS: ZITHROMAX INJ 500 MG VIAL 500 MG in NS 250 ML IV 250 ML IV SCH (08:41)
[2021-04-03] MEDS: NS 1,000 ML IV 1,000 ML IV SCH (16:28)
[2021-04-03 17:06] VITALS: BP 126/67
--- NOTE | 2021-04-03 17:08 | CT ---
HISTORYCONFUSION, WEAKNESS.brSTUDYBRAIN W/O CONCOMPARISONHead CT 01/22/2021TECHNIQUEMultiple CT axial images of the head were obtained without IV contrast. Coronal and sagittal images were reconstructed. Dose reduction techniques included Automated Exposure Control (AEC) and adjustment of mA and kV.FINDINGSModerate age related changes are present. But the findings are stable when compared to the prior study.[place]var[place] and white matter have normal differentiation. There is no mass, shift, or hemorrhage. Cerebellar tonsils are at an appropriate level.There is a left mastoid effusion, but this is unchanged from the prior study. No evidence for sinusitis or right mastoid effusion.IMPRESSION1. No acute finding in the brain2. Chronic left mastoid effusionElectronically signed by: Evelio Parikh (Apr 03, 2021 17:06:00)
== END 2021-04-03 17:50 | disposition home health service (06) | DRG 871 ==
LOC: ER 14:04 → ICU 19:29
PROVIDERS: ADMIT Family Medicine; ATTEND Internal Medicine
DX: R06.02 Shortness of breath; I10 Essential (primary) hypertension; Z20.822 Contact with and (suspected) exposure to COVID-19; R79.1 Abnormal coagulation profile; I25.10 Atherosclerotic heart disease of native coronary artery without angina pectoris; R41.0 Disorientation, unspecified; Z99.81 Dependence on supplemental oxygen; E11.65 Type 2 diabetes mellitus with hyperglycemia; K21.9 Gastro-esophageal reflux disease without esophagitis; I95.89 Other hypotension; R26.89 Other abnormalities of gait and mobility; N17.8 Other acute kidney failure; J18.9 Pneumonia, unspecified organism; A41.9 Sepsis, unspecified organism; R53.1 Weakness

== ENCOUNTER 2022-07-08 15:59 | Observation (INO) ==
[2022-07-08] MEDS ORDERED: XOPENEX 1.25 MG/3 ML NEBULE NEB ONE ×2 (16:07)
--- NOTE | 2022-07-08 16:23 | DR.SOBA ---
HPI Time Seen Time Seen by Provider: 07/08/22 16:22 Primary Care Physician Primary Care Physician: RICHARD PEREIRA Complaints Chief Complaint Doctors Comments: 86 y/o male presents for evaluation. Having problems over the past month with coughing, wheezing. Pt with a h/o COPD. Pt states he has a h/o esophageal problems, gets stretched periodically, has not happened in years. Has been choking on his food, pills. Sets off episodes of coughing, wheezing. Was warm few days ago, but no known fever. Has chronic edema of ankles, takes diuretics. Chief Complaint:: PT. C/O WHEEZING, PRODUCTIVE COUGH AND SHORTNESS OF BREATH X 1 MONTH. FAMILY MEMBER STATES PT. HAS RECENTLY HAD PNEUMONIA AND THE SHORTNESS OF BREATH AND WHEEZING HAS GOTTEN WORSE. AUDIBLE WHEEZING NOTED. COVID-19 Coronavirus risk:travel/contact w/high risk person: No Has patient experienced Coronavirus symptoms: Yes Coronavirus symptoms experienced: Coughing and Shortness of Breath Source History Provided: Patient and Family Member Mode of Arrival Mode of Arrival: Wheelchair Timing Onset of Chief Complaint: 06/08/22 PMH PMH Past Medical History: Yes Past Medical History: Anxiety, Arthritis, COPD, Coronary Artery Disease, Diabetes, GERD, Gout, Hypertension and PUD Past Surgical History: Yes Surgical History: Ortho Surgery, Tonsillectomy and Other Family History History of Family Medical Conditions: Yes Family Medical History: Diabetes Mellitus and Hypertension Social History Does patient currently use any type of tobacco product: No Have you used tobacco products in the last 12 months: No Type of Tobacco Use: None Does any household member use tobacco: No Alcohol Use: None Do you use any recreational Drugs:: No Lives With: Family Lives Where: Home Travel Risk Coronavirus risk:travel/contact w/high risk person: No Has patient experienced Coronavirus symptoms: Yes Coronavirus symptoms experienced: Coughing and Shortness of Breath Infectious screening In the last 2 months have you had wt loss of >10#?: NO Have you had fever, night sweats or hemotysis?: No Have you traveled outside the country in the last 6 months?: No Isolation: Droplet ROS Review of Systems Constitutional: No Symptoms Reported Eyes: No Symptoms Reported ENTM: No Symptoms Reported Respiratoy: Non-Productive Cough, Short of Breath and Wheezing Cardiovascular: Edema Gastrointestinal/Abdominal: Other (difficulty with swallowing) Genitourinary: No Symptoms Reported Neurological: No Symptoms Reported Musculoskeletal: No Symptoms Reported Integumentary: No Symptoms Reported Hematologic/Lymphatic: No Symptoms Reported Psychiatric: No Symptoms Reported All Other Systems: Reviewed and Negative PE Vital Signs Vitals: Temperature 98.0 F Pulse Rate 84 Respiratory Rate 42 Blood Pressure 132/59 O2 Sat by Pulse Oximetry 89 General General Appearance: Alert and Other (mild distress) Eyes Eye exam: PERRL and EOMI ENT ENT Exam: Normal Exam, Normal Oropharynx and Mucous Membranes Moist Neck Neck Exam: Normal Inspection and Full ROM; negative Tenderness Respiratory Respiratory Exam: Respiratory Distress and Other (+ expiratory wheezing) Cardiovascular Cardiovascular Exam: Regular Rate, Normal Rhythm and Normal Heart Sounds Abdominal Exam Abdominal Exam: Normal Bowel Sounds and Soft; negative Tenderness Extremities Extremities Exam: Edema (2+, bilateral lower exts) Neurologic Neurological Exam: Alert, Oriented X3 and CN II-XII Intact; negative Motor Sensory Deficit Skin Skin Exam: Warm and Dry COURSE Treatment Treatment: 86 y/o male, having increasing difficulty swallowing food/pills over the past several weeks. + h/o esophageal stricture, with periodic stretching in the past. Hasn't had done in awhile. Pt having episodes of choking, coughing, wheezing, especially with eating. + cough, non productive, no fever. W/u initiated. Pt given breathng treatment and IV solu-medol. 1930 - doing better. Recommend admission for further observation, treatment for COPD. Discussed with Dr Arizmendi, accepts admission for Dr Ren. Will consult with Dr Sanabria in am to evaluate for possible EGD/stretching. ROR Labs Reviewed Laboratory Results Reviewed?: Yes Result Diagrams: 07/08/22 16:18 07/08/22 16:18 Laboratory: 07/08/22 16:14 Sputum - Expectorated Sputum - Final WBC 8.0 X10^3/uL (3.6-10.0) 07/08/22 16:18 RBC 3.58 X10^6/uL (4.7-6.0) L 07/08/22 16:18 Hgb 10.9 g/dL (13.5-18.0) L 07/08/22 16:18 Hct 32.3 % (42.0-54.0) L 07/08/22 16:18 MCV 90.2 fL (80.0-100.0) 07/08/22 16:18 MCH 30.5 pg (27.0-34.0) 07/08/22 16:18 MCHC 33.8 g/dL (33.0-35.0) 07/08/22 16:18 RDW 15.0 % (11.6-16.5) 07/08/22 16:18 Plt Count 88 X10^3/uL (150.0-450.0) L 07/08/22 16:18 MPV 10.3 fL (7.4-11.0) 07/08/22 16:18 Neut % (Auto) 60.4 % (42.0-75.0) 07/08/22 16:18 Lymph % (Auto) 21.4 % (21.0-51.0) 07/08/22 16:18 [place] % (Auto) 7.1 % (0.0-13.0) 07/08/22 16:18 Eos % (Auto) 9.7 % (0.9-2.9) H 07/08/22 16:18 Baso % (Auto) 1.4 % (0.2-1.0) H 07/08/22 16:18 Neut # (Auto) 4.8 x10^3/uL (2.2-4.8) 07/08/22 16:18 Lymph # (Auto) 1.7 X10^3/uL (1.3-2.9) 07/08/22 16:18 [place] # (Auto) 0.6 x10^3/uL (0.3-0.8) 07/08/22 16:18 Eos # (Auto) 0.8 x10^3/uL (0.0-0.2) H 07/08/22 16:18 Baso # (Auto) 0.1 X10^3/uL (0.0-0.1) 07/08/22 16:18 Absolute Nucleated RBC 0.0 /100WBC 07/08/22 16:18 Sodium 144 mmol/L (136-145) 07/08/22 16:18 Corrected Sodium 145 mmol/L (136-145) 07/08/22 16:18 Potassium 3.9 mmol/L (3.5-5.1) 07/08/22 16:18 Chloride 105 mmol/L (98-107) 07/08/22 16:18 Carbon Dioxide 33.5 mmol/L (21-32) H 07/08/22 16:18 BUN 16 mg/dL (7-18) 07/08/22 16:18 Creatinine 1.19 mg/dL (0.70-1.30) 07/08/22 16:18 Est GFR (MDRD) Af Amer > 60 (>60) 07/08/22 16:18 Est GFR (MDRD) Non-Af > 60 (>60) 07/08/22 16:18 Glucose 130 mg/dL (65-99) H 07/08/22 16:18 Calcium 8.2 mg/dL (8.5-10.1) L 07/08/22 16:18 Corrected Calcium TNP 07/08/22 16:18 Total Bilirubin 0.90 mg/dL (0.2-1.0) 07/08/22 16:18 AST 26 Units/L (15-37) 07/08/22 16:18 ALT 23 Units/L (12-78) 07/08/22 16:18 Alkaline Phosphatase 69 Units/L (46-116) 07/08/22 16:18 Troponin I High Sens 9.7 ng/L (4.0-60.0) 07/08/22 16:18 B-Natriuretic Peptide 193 pg/mL (0-79) H 07/08/22 16:18 Total Protein 6.4 g/dL (6.4-8.2) 07/08/22 16:18 Albumin 3.7 g/dL (3.4-5.0) 07/08/22 16:18 Globulin 2.7 g/dL (2.5-4.5) 07/08/22 16:18 Albumin/Globulin Ratio 1.4 Ratio (1.1-2.1) 07/08/22 16:18 Specimen Type Random urine 07/08/22 17:40 Urine Color Yellow (YELLOW) 07/08/22 17:40 Urine Appearance Clear (CLEAR) 07/08/22 17:40 Urine pH 5.0 (5.0 - 8.0) 07/08/22 17:40 Ur Specific [place] 1.010 (1.000-1.030) 07/08/22 17:40 Urine Protein Negative (NEGATIVE) 07/08/22 17:40 Urine Glucose (UA) Negative (NEGATIVE) 07/08/22 17:40 Urine Ketones Negative (NEGATIVE) 07/08/22 17:40 Urine Blood Negative (NEGATIVE) 07/08/22 17:40 Urine Nitrite Negative (NEGATIVE) 07/08/22 17:40 Urine Bilirubin Negative (NEGATIVE) 07/08/22 17:40 Urine Urobilinogen Normal (NORMAL) 07/08/22 17:40 Ur Leukocyte Esterase Negative (NEGATIVE) 07/08/22 17:40 XRAY XRAY Interpreted by: Both X-ray Results: no acute infiltrate EKG Rate: 81 [place]: LAD (-21) Rhythm: NSR ST: Nonsp Opioid Opioid Risk Tool Age (Ciaran box if 16-45): No History of Preadolescent Sexual Abuse: No Total: 0 Total Score Risk Category: Low Risk Copyright: Pepe RAI predicting aberrant behaviors Discharge Plan Diagnosis Discharge Problem: COPD exacerbation, Esophageal stricture Discharge Plan Patient Disposition: 09 ADMITTED INPATIENT Condition: Stable
[2022-07-08] MEDS ORDERED: SOLU-Medrol 125 MG VIAL IVP ONE (16:27)
--- NOTE | 2022-07-08 16:31 | EKG ---
Test Reason : dyspnea Blood Pressure : */* mmHG Vent. Rate : 81 BPM Atrial Rate : 81 BPM P-R Int : 154 ms QRS Dur : 100 ms QT Int : 388 ms P-R-T Axes : 45 -21 92 degrees QTc Int : 450 ms Normal sinus rhythm Abnormal QRS-T angle, consider primary T wave abnormality Abnormal ECG No previous ECGs available Confirmed by Arcenio Jay ([id number]) on 07/10/2022 8:16:16 AM Referred By: Confirmed By: Arcenio Jay
[2022-07-08] MEDS ORDERED: SOLU-Medrol 125 MG VIAL ONE (16:33)
[2022-07-08 16:42] LABS: BASOPHILS # (AUTO) 0.1 X10^3/uL (0.0-0.1); BASOPHILS % (AUTO) 1.4 % (0.2-1.0); EOSINOPHILS # (AUTO) 0.8 x10^3/uL (0.0-0.2); EOSINOPHILS % (AUTO) 9.7 % (0.9-2.9); HEMATOCRIT 32.3 % (42.0-54.0); HEMOGLOBIN 10.9 g/dL (13.5-18.0); LYMPHOCYTES # (AUTO) 1.7 X10^3/uL (1.3-2.9); LYMPHOCYTES % (AUTO) 21.4 % (21.0-51.0); MEAN CORPUSCULAR HEMOGLOBIN 30.5 pg (27.0-34.0); MEAN CORPUSCULAR HGB CONC 33.8 g/dL (33.0-35.0); MEAN CORPUSCULAR VOLUME 90.2 fL (80.0-100.0); MEAN PLATELET VOLUME 10.3 fL (7.4-11.0); MONOCYTES # (AUTO) 0.6 x10^3/uL (0.3-0.8); MONOCYTES % (AUTO) 7.1 % (0.0-13.0); NEUTROPHILS # (AUTO) 4.8 x10^3/uL (2.2-4.8); NEUTROPHILS % (AUTO) 60.4 % (42.0-75.0); RED BLOOD COUNT 3.58 X10^6/uL (4.7-6.0)
[2022-07-08 16:55] LABS: ALANINE AMINOTRANSFERASE 23 Units/L (12-78); ALBUMIN 3.7 g/dL (3.4-5.0); ALKALINE PHOSPHATASE 69 Units/L (46-116); ASPARTATE AMINO TRANSFERASE 26 Units/L (15-37); BLOOD UREA NITROGEN 16 mg/dL (7-18); CALCIUM 8.2 mg/dL (8.5-10.1); CARBON DIOXIDE 33.5 mmol/L (21-32); CHLORIDE 105 mmol/L (98-107); COR NA(FOR HYPERGLY) 145 mmol/L (136-145); CREATININE 1.19 mg/dL (0.70-1.30); SODIUM 144 mmol/L (136-145); TOTAL PROTEIN 6.4 g/dL (6.4-8.2); eGFR NON BLACK RACES > 60 (>60)
[2022-07-08 17:54] LABS: BILIRUBIN,URINE NEGATIVE (NEGATIVE); BLOOD/HEMOGLOBIN,URINE NEGATIVE (NEGATIVE); GLUCOSE, URINE NEGATIVE (NEGATIVE); KETONES,URINE NEGATIVE (NEGATIVE); LEUKOCYTE ESTERASE ,URINE NEGATIVE (NEGATIVE); NITRITES,URINE NEGATIVE (NEGATIVE); PROTEIN,URINE NEGATIVE (NEGATIVE); UROBILINOGEN,URINE NORMAL (NORMAL)
[2022-07-08 18:16] LABS: APPEARANCE,URINE CLEAR (CLEAR); COLOR,URINE YELLOW (YELLOW)
--- NOTE | 2022-07-08 18:31 | RAD ---
HISTORYPT. C/O WHEEZING, PRODUCTIVE COUGH AND SHORTNESS OF BREATH X 1 MONTH.STUDYCHEST, 1 [id number]/2022FINDINGSThe cardiomediastinal silhouette is stable. Right-sided pacer and pacer wires unchanged. Chronic interstitial changes in the lungs. No acute airspace disease. No pneumothorax or effusion. The bony thorax appears intact.IMPRESSIONNo acute cardiopulmonary disease.Electronically signed by: HELIO TAYLOR (Jul 08, 2022 18:30:08)
[2022-07-08] MEDS ORDERED: ROPINIROLE 4 MG PO PRN (21:10)
[2022-07-08] MEDS ORDERED: REQUIP PO PRN (21:33)
[2022-07-08] MEDS: REQUIP PO SCH (21:55)
[2022-07-08] MEDS: LYRICA CAP 75 mg PO SCH (21:55)
[2022-07-08] MEDS: SINEquan PO SCH (21:55)
[2022-07-08] MEDS: PEPCID TAB 40 MG PO SCH (21:55)
[2022-07-08] MEDS: DUONEB 0.5 MG/3 MG (3 mL) NEB SCH (22:35)
[2022-07-08] MEDS: SOLU-Medrol 40 MG VIAL IVP SCH (22:48)
[2022-07-08] MEDS: NovoLIN R (or HumuLIN R) SUBCUT PRN (22:54)
[2022-07-09] MEDS: NORCO 10/325 TAB PO PRN ×3 (00:26→21:43)
--- NOTE | 2022-07-09 05:15 | RAD ---
HISTORYDYSPNEA Relevant Clinical InformationSTUDYCHEST, 1 [id number]/14/2023FINDINGSThe trachea is midline. The cardiac silhouette is unremarkable. Pulmonary vasculature within normal limits. The lungs are clear of acute infiltrates. No pleural effusion.IMPRESSIONNo acute cardiopulmonary findings .Electronically signed by: Ralph Mortensen (Jul 09, 2022 05:13:29)
[2022-07-09] MEDS: SOLU-Medrol 40 MG VIAL IVP SCH ×3 (05:50→21:42)
[2022-07-09] MEDS: REQUIP PO SCH ×3 (05:50→21:41)
[2022-07-09] MEDS: NovoLIN R (or HumuLIN R) SUBCUT PRN (05:55)
[2022-07-09] MEDS: DUONEB 0.5 MG/3 MG (3 mL) NEB SCH ×3 (06:15→20:30)
[2022-07-09 06:22] LABS: BASOPHILS % (AUTO) 0.1 % (0.2-1.0); EOSINOPHILS % (AUTO) 0.1 % (0.9-2.9); HEMATOCRIT 32.3 % (42.0-54.0); HEMOGLOBIN 10.9 g/dL (13.5-18.0); LYMPHOCYTES # (AUTO) 0.7 X10^3/uL (1.3-2.9); LYMPHOCYTES % (AUTO) 9.1 % (21.0-51.0); MEAN CORPUSCULAR HEMOGLOBIN 30.4 pg (27.0-34.0); MEAN CORPUSCULAR HGB CONC 33.8 g/dL (33.0-35.0); MEAN CORPUSCULAR VOLUME 89.9 fL (80.0-100.0); MEAN PLATELET VOLUME 10.5 fL (7.4-11.0); MONOCYTES # (AUTO) 0.1 x10^3/uL (0.3-0.8); MONOCYTES % (AUTO) 0.9 % (0.0-13.0); NEUTROPHILS # (AUTO) 6.6 x10^3/uL (2.2-4.8); NEUTROPHILS % (AUTO) 89.8 % (42.0-75.0); RED BLOOD COUNT 3.59 X10^6/uL (4.7-6.0); RED CELL DISTRIBUTION WIDTH 14.7 % (11.6-16.5); WHITE BLOOD COUNT 7.3 X10^3/uL (3.6-10.0)
[2022-07-09 06:27] LABS: ALANINE AMINOTRANSFERASE 21 Units/L (12-78); ALBUMIN 3.5 g/dL (3.4-5.0); ALKALINE PHOSPHATASE 67 Units/L (46-116); ASPARTATE AMINO TRANSFERASE 23 Units/L (15-37); BLOOD UREA NITROGEN 18 mg/dL (7-18); CALCIUM 8.6 mg/dL (8.5-10.1); CARBON DIOXIDE 36.8 mmol/L (21-32); CHLORIDE 104 mmol/L (98-107); COR NA(FOR HYPERGLY) 149 mmol/L (136-145); CREATININE 1.39 mg/dL (0.70-1.30); SODIUM 147 mmol/L (136-145); TOTAL PROTEIN 6.4 g/dL (6.4-8.2); eGFR NON BLACK RACES 51 (>60)
--- NOTE | 2022-07-09 08:37 | DR.H&P ---
H&P - History & Physical for Day of: H&P Date: 07/08/22 - Chief Complaint Chief Complaint: CCC, "CHOKING TO " - History of Present Illness History of Present Illness: 86 y/o male presents for evaluation. Having problems over the past month with coughing, wheezing. Pt with a h/o COPD. Pt states he has a h/o esophageal problems, gets stretched periodically, has not happened in years. Has been choking on his food, pills. Sets off episodes of coughing, wheezing. Was warm few days ago, but no known fever. Has chronic edema of ankles, takes diuretics. - Past Medical History Past Medical History: Coronary Artery Disease, Hypertension, Diabetes, Anxiety, COPD, PUD, GERD, Arthritis, Gout - Past Surgical History Surgical History: Tonsillectomy, Other Additional Surgical History: PACEMAKER - Family History Family Medical History: Coronary Artery Disease, Hypertension - Social History Does patient currently use any type of tobacco product: No Have you used tobacco products in the last 12 months: No Type of Tobacco Use: None Does any household member use tobacco: No Alcohol Use: None Drug Use: None - Medications Home Medications: shellfish derived Allergy (Severe, Verified 07/08/22 21:38) ANAPHALEXIS REACTION codeine Allergy (Unknown, Verified 07/08/22 21:38) Iodinated Contrast Media Allergy (Unknown, Verified 07/08/22 21:38) CONTINUE taking the following medications allopurinol 100 mg tablet 100 mg PO DAILY 07/08/22 [History] atorvastatin 20 mg tablet 20 mg PO DAILY 07/08/22 [History] donepezil 5 mg tablet 1 tab PO QDAY 07/08/22 [History] doxazosin 8 mg tablet 1 tab PO QDAY 07/08/22 [History] doxepin 10 mg capsule 10 mg PO HS 07/08/22 [History] famotidine 40 mg tablet 40 mg PO HS 07/08/22 [History] hydrocodone 10 mg-acetaminophen 325 mg tablet 1 tab PO QID PRN 07/08/22 [History] metformin 500 mg tablet 1 tab PO QDAY 07/08/22 [History] metoprolol succinate 25 mg tablet,extended release 24 hr 1 tab PO DAILY 07/08/22 [History] omeprazole 40 mg capsule,delayed release 1 cap PO QDAY 07/08/22 [History] pregabalin 75 mg capsule 75 mg PO BID 07/08/22 [History] ropinirole 4 mg tablet 1 tab PO TID PRN 07/08/22 [History] - Review of Systems Constitutional: Weakness Eyes: No Symptoms Reported ENT: Nose Congestion, Throat Pain, Throat Swelling Respiratory: Cough, Shortness of Breath, SOB with Excertion, Wheezing Cardiovascular: Chest Pain, Palpitations Gastrointestinal: Nausea, Vomiting Genitourinary: No Symptoms Reported Musculoskeletal: Back Pain Skin: No Symptoms Reported Neurological: Weakness - Physical Exam Vital Signs: Temperature 97.8 F Pulse Rate [Brachial] 103 Pulse Rate 84 Respiratory Rate 20 Blood Pressure [Left Arm] 141/65 Blood Pressure 137/63 O2 Sat by Pulse Oximetry 94 Oriented: Normal Eyes: Normal Ear: Normal Nose: Normal Throat: Exudate Respiratory: Wheezes Throughout, RLL Diminished, LLL Diminished Cardiovascular: Normal, 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 DR GARZA CONSULTED, PROTONIX IV BID. STRICT I&OS, CARDIAC MONITORING. CHEST XRAY ON ADMISSION (2) COPD exacerbation Status: Acute (3) GERD (gastroesophageal reflux disease) Qualifiers: Esophagitis presence: esophagitis presence not specified Qualified Code(s): K21.9 - Gastro-esophageal reflux disease without esophagitis Status: Chronic (4) Generalized weakness Status: Chronic (5) CHF (congestive heart failure), NYHA class III Qualifiers: Congestive heart failure type: unspecified Qualified Code(s): I50.9 - Heart failure, unspecified Status: Chronic (6) Rheumatoid arthritis Status: Chronic (7) Diabetes mellitus Status: None - Allergies Allergies/Adverse Reactions: Allergies Allergy/AdvReac Type Severity Reaction Status Date / Time shellfish derived Allergy Severe ANAPHALEXIS Verified 07/08/22 21:38 REACTION codeine Allergy Unknown Verified 07/08/22 21:38 Iodinated Contrast Media Allergy Unknown Verified 07/08/22 21:38
[2022-07-09] MEDS ORDERED: DOXAZOSIN 8 MG PO SCH (09:00)
[2022-07-09] MEDS: PULMICORT NEB TX 0.5 MG NEB SCH ×2 (09:00→20:30)
[2022-07-09] MEDS: TOPROL XL PO SCH (09:30)
[2022-07-09] MEDS: CARDURA PO SCH (09:30)
[2022-07-09] MEDS ORDERED: NS 500 ML IV 500 ML IV ONE (13:45)
[2022-07-09 13:51] VITALS: BMI 28.8
[2022-07-09] MEDS ORDERED: DIPRIVAN VIAL 20 ML ONE (14:14)
[2022-07-09] MEDS ORDERED: GLUCOPHAGE ONE (15:04)
[2022-07-09] MEDS ORDERED: ASTELIN NASAL SPRAY ENOSTRIL ONE (15:05)
[2022-07-09] MEDS: ARICEPT TAB 5 MG PO SCH (15:08)
[2022-07-09] MEDS: GLUCOPHAGE PO SCH (15:09)
[2022-07-09] MEDS: PriLOSEC PO SCH (15:10)
[2022-07-09] MEDS: LIPITOR TAB 20 MG PO SCH (15:12)
[2022-07-09] MEDS: ZYLOPRIM PO SCH (15:12)
[2022-07-09] MEDS: ASTELIN NASAL SPRAY ENOSTRIL SCH (15:13)
[2022-07-09] MEDS: LYRICA CAP 75 mg PO SCH ×2 (15:13→21:42)
[2022-07-09] MEDS: SNACK - Diabetic Appropriate PO SCH (20:41)
[2022-07-09] MEDS: SINEquan PO SCH (21:41)
[2022-07-09] MEDS: PEPCID TAB 40 MG PO SCH (21:41)
--- NOTE | 2022-07-10 02:29 | EKG ---
Test Reason : Chest Pain Blood Pressure : */* mmHG Vent. Rate : 70 BPM Atrial Rate : 70 BPM P-R Int : 154 ms QRS Dur : 90 ms QT Int : 406 ms P-R-T Axes : 77 12 -14 degrees QTc Int : 438 ms Sinus rhythm with fusion complexes Septal infarct , age undetermined Abnormal ECG When compared with ECG of 08-JUL-2022 16:29, (Unconfirmed) fusion complexes are now present Septal infarct is now present Nonspecific T wave abnormality now evident in Inferior leads Confirmed by Arcenio Jay ([id number]) on 07/10/2022 8:13:26 AM Referred By: Confirmed By: Arcenio Jay
[2022-07-10] MEDS: REQUIP PO SCH ×3 (05:36→21:01)
[2022-07-10] MEDS: SOLU-Medrol 40 MG VIAL IVP SCH ×3 (05:36→21:01)
[2022-07-10 05:58] LABS: BASOPHILS % (AUTO) 0.1 % (0.2-1.0); HEMATOCRIT 29.2 % (42.0-54.0); HEMOGLOBIN 9.8 g/dL (13.5-18.0); LYMPHOCYTES # (AUTO) 0.8 X10^3/uL (1.3-2.9); LYMPHOCYTES % (AUTO) 5.4 % (21.0-51.0); MEAN CORPUSCULAR HEMOGLOBIN 29.9 pg (27.0-34.0); MEAN CORPUSCULAR HGB CONC 33.4 g/dL (33.0-35.0); MEAN CORPUSCULAR VOLUME 89.5 fL (80.0-100.0); MONOCYTES # (AUTO) 0.5 x10^3/uL (0.3-0.8); MONOCYTES % (AUTO) 3.4 % (0.0-13.0); NEUTROPHILS # (AUTO) 13.4 x10^3/uL (2.2-4.8); NEUTROPHILS % (AUTO) 91.1 % (42.0-75.0); RED BLOOD COUNT 3.26 X10^6/uL (4.7-6.0); RED CELL DISTRIBUTION WIDTH 15.7 % (11.6-16.5); WHITE BLOOD COUNT 14.7 X10^3/uL (3.6-10.0)
[2022-07-10] MEDS: DUONEB 0.5 MG/3 MG (3 mL) NEB SCH ×3 (06:28→20:25)
[2022-07-10 06:49] LABS: BAND NEUTROPHILS % 1 % (0-10); HYPOCHROMASIA SLIGHT; PLATELET MORPHOLOGY COMMENT NORMAL (NORMAL)
[2022-07-10] MEDS ORDERED: GLUCOPHAGE ONE (07:41)
[2022-07-10] MEDS ORDERED: ASTELIN NASAL SPRAY ENOSTRIL ONE (07:42)
--- NOTE | 2022-07-10 07:59 | DR.PROGNOT ---
HOSPITAL PROGRESS NOTE Progress Note for Day of: Progress Note Date: 07/10/22 Chief Complaint Chief Complaint: having episodes of coughing and wheezing this am . able to swallow now . c/o epigastric pain and bloating feeling . Past Medical Family Social History Past Med/Fam/Surg Hx: No changes since H&P Allergies: Allergies shellfish derived Allergy (Severe, Verified 07/08/22 21:38) ANAPHALEXIS REACTION codeine Allergy (Unknown, Verified 07/08/22 21:38) Iodinated Contrast Media Allergy (Unknown, Verified 07/08/22 21:38) Review Of Systems ROS: No change since H&P Vital Signs Vital Signs: Temperature 97.7 F Pulse Rate [Brachial] 71 Pulse Rate 78 Respiratory Rate 20 Blood Pressure [Left Arm] 129/62 Blood Pressure 137/63 O2 Sat by Pulse Oximetry 98 Physical Exam Oriented: Normal Eyes: Normal Ear: Normal Nose: Normal Throat: Exudate Cardiovascular: Normal and Other (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) : Normal GI:Auscultation: Normal GI:Palpation: Normal GI: Tenderness: Epigastric Skin: Decreased Turgur Musculoskeletal: Back:Lumbar Psychiatric: Anxiety Speech Pattern: Clear and Appropriate Laboratory and Diagnostics Result Diagrams: 07/10/22 05:07 07/09/22 05:04 Labs: 07/08/22 16:14 Sputum - Expectorated Sputum Sputum Culture - Preliminary 07/08/22 16:14 Sputum - Expectorated Sputum - Final Laboratory WBC 14.7 X10^3/uL (3.6-10.0) H 07/10/22 05:07 RBC 3.26 X10^6/uL (4.7-6.0) L 07/10/22 05:07 Hgb 9.8 g/dL (13.5-18.0) L 07/10/22 05:07 Hct 29.2 % (42.0-54.0) L 07/10/22 05:07 MCV 89.5 fL (80.0-100.0) 07/10/22 05:07 MCH 29.9 pg (27.0-34.0) 07/10/22 05:07 MCHC 33.4 g/dL (33.0-35.0) 07/10/22 05:07 RDW 15.7 % (11.6-16.5) 07/10/22 05:07 Plt Count 97 X10^3/uL (150.0-450.0) L 07/10/22 05:07 Plt Count Comment Decreased (ADEQUATE) 07/10/22 05:07 MPV 11.0 fL (7.4-11.0) 07/10/22 05:07 Neut % (Auto) 91.1 % (42.0-75.0) H 07/10/22 05:07 Lymph % (Auto) 5.4 % (21.0-51.0) L 07/10/22 05:07 [place] % (Auto) 3.4 % (0.0-13.0) 07/10/22 05:07 Eos % (Auto) 0.0 % (0.9-2.9) L 07/10/22 05:07 Baso % (Auto) 0.1 % (0.2-1.0) L 07/10/22 05:07 Neut # (Auto) 13.4 x10^3/uL (2.2-4.8) H 07/10/22 05:07 Lymph # (Auto) 0.8 X10^3/uL (1.3-2.9) L 07/10/22 05:07 [place] # (Auto) 0.5 x10^3/uL (0.3-0.8) 07/10/22 05:07 Eos # (Auto) 0.0 x10^3/uL (0.0-0.2) 07/10/22 05:07 Baso # (Auto) 0.0 X10^3/uL (0.0-0.1) 07/10/22 05:07 Absolute Nucleated RBC 0.0 /100WBC 07/10/22 05:07 Total Counted 100 07/10/22 05:07 Neutrophils % (Manual) 90 % (39-76) H 07/10/22 05:07 Band Neutrophils % 1 % (0-10) 07/10/22 05:07 Lymphocytes % (Manual) 9 % (13-43) L 07/10/22 05:07 Plt Morphology Comment Normal (NORMAL) 07/10/22 05:07 RBC Morphology Abnormal (NORMAL) 07/10/22 05:07 Hypochromasia Slight A 07/10/22 05:07 Sodium 147 mmol/L (136-145) H 07/09/22 05:04 Corrected Sodium 149 mmol/L (136-145) H 07/09/22 05:04 Potassium 4.3 mmol/L (3.5-5.1) 07/09/22 05:04 Chloride 104 mmol/L (98-107) 07/09/22 05:04 Carbon Dioxide 36.8 mmol/L (21-32) H 07/09/22 05:04 BUN 18 mg/dL (7-18) 07/09/22 05:04 Creatinine 1.39 mg/dL (0.70-1.30) H 07/09/22 05:04 Est GFR (MDRD) Af Amer > 60 (>60) 07/09/22 05:04 Est GFR (MDRD) Non-Af 51 (>60) L 07/09/22 05:04 Glucose 174 mg/dL (65-99) H 07/09/22 05:04 POC Glucose (mg/dL) 194 mg/dL (65-99) H 07/10/22 05:09 Calcium 8.6 mg/dL (8.5-10.1) 07/09/22 05:04 Corrected Calcium TNP 07/09/22 05:04 Total Bilirubin 0.60 mg/dL (0.2-1.0) 07/09/22 05:04 AST 23 Units/L (15-37) 07/09/22 05:04 ALT 21 Units/L (12-78) 07/09/22 05:04 Alkaline Phosphatase 67 Units/L (46-116) 07/09/22 05:04 Troponin I High Sens 9.7 ng/L (4.0-60.0) 07/08/22 16:18 B-Natriuretic Peptide 193 pg/mL (0-79) H 07/08/22 16:18 Total Protein 6.4 g/dL (6.4-8.2) 07/09/22 05:04 Albumin 3.5 g/dL (3.4-5.0) 07/09/22 05:04 Globulin 2.9 g/dL (2.5-4.5) 07/09/22 05:04 Albumin/Globulin Ratio 1.2 Ratio (1.1-2.1) 07/09/22 05:04 Specimen Type Random urine 07/08/22 17:40 Urine Color Yellow (YELLOW) 07/08/22 17:40 Urine Appearance Clear (CLEAR) 07/08/22 17:40 Urine pH 5.0 (5.0 - 8.0) 07/08/22 17:40 Ur Specific [place] 1.010 (1.000-1.030) 07/08/22 17:40 Urine Protein Negative (NEGATIVE) 07/08/22 17:40 Urine Glucose (UA) Negative (NEGATIVE) 07/08/22 17:40 Urine Ketones Negative (NEGATIVE) 07/08/22 17:40 Urine Blood Negative (NEGATIVE) 07/08/22 17:40 Urine Nitrite Negative (NEGATIVE) 07/08/22 17:40 Urine Bilirubin Negative (NEGATIVE) 07/08/22 17:40 Urine Urobilinogen Normal (NORMAL) 07/08/22 17:40 Ur Leukocyte Esterase Negative (NEGATIVE) 07/08/22 17:40 Assessment and Plan 1: severe esophageal dysmotility disorder , no ulcerations ,obstruction or bleeding . no neoplasm . on mechanical soft diet ,IV Protonix . 2: bronchospasm . on breathing Tx this am Problem Patient Problems: Patient Problems (Updated 07/09/22 @ 08:37 by YAMIL NOYOLA) COPD exacerbation (Acute) J44.1 Esophageal stricture (Acute) K22.2 GERD (gastroesophageal reflux disease) (Chronic) K21.9 Generalized weakness (Chronic) R53.1 CHF (congestive heart failure), NYHA class III (Chronic) I50.9 Rheumatoid arthritis (Chronic) M06.9
[2022-07-10] MEDS: LIPITOR TAB 20 MG PO SCH (08:12)
[2022-07-10] MEDS: CARDURA PO SCH (08:12)
[2022-07-10] MEDS: PriLOSEC PO SCH (08:12)
[2022-07-10] MEDS: ZYLOPRIM PO SCH (08:13)
[2022-07-10] MEDS: ARICEPT TAB 5 MG PO SCH (08:13)
[2022-07-10] MEDS: TOPROL XL PO SCH (08:13)
[2022-07-10] MEDS: GLUCOPHAGE PO SCH (08:13)
[2022-07-10] MEDS: ASTELIN NASAL SPRAY ENOSTRIL SCH (08:14)
[2022-07-10] MEDS: NORCO 10/325 TAB PO PRN ×2 (08:14→20:43)
[2022-07-10] MEDS: LYRICA CAP 75 mg PO SCH ×2 (08:14→20:40)
[2022-07-10] MEDS: PULMICORT NEB TX 0.5 MG NEB SCH ×2 (08:54→20:25)
[2022-07-10] MEDS ORDERED: ROCEPHIN 1 GRAM IV PREMIX 1 G/50 ML IV.SOLN. IV SCH (09:00)
--- NOTE | 2022-07-10 09:40 | RAD ---
HISTORYSOB, CONGESTIONSTUDYCHEST, 1 [id number]/15/2023.TECHNIQUEPA or AP view of the chestFINDINGSRight chest wall pacemaker with leads in good position. There also left chest wall pacemaker leads. Cardiac and mediastinal contours are within normal limits. Left base subsegmental atelectasis versus scar. Blunted left costophrenic sulcus. No pneumothorax.IMPRESSIONBlunted left costophrenic sulcus can be seen with small pleural effusion or pleuro-parynchemal scarring.Electronically signed by: Ruy Pierson (Jul 10, 2022 09:38:45)
[2022-07-10] MEDS: CARAFATE ORAL SUSP PO SCH ×3 (10:00→20:40)
[2022-07-10] MEDS: ROCEPHIN VIAL 1 GRAM 1 G in NS 100 ML IV 100 ML IV SCH (10:00)
[2022-07-10] MEDS ORDERED: NS 100 ML IV 100 ML ONE (10:55)
[2022-07-10] MEDS: SNACK - Diabetic Appropriate PO SCH (20:39)
[2022-07-10] MEDS: SINEquan PO SCH (20:40)
[2022-07-10] MEDS: PEPCID TAB 40 MG PO SCH (20:41)
[2022-07-10] MEDS: NovoLIN R (or HumuLIN R) SUBCUT PRN (20:42)
[2022-07-11 05:02] LABS: BASOPHILS % (AUTO) 0.1 % (0.2-1.0); HEMATOCRIT 29.9 % (42.0-54.0); HEMOGLOBIN 10.3 g/dL (13.5-18.0); LYMPHOCYTES # (AUTO) 0.7 X10^3/uL (1.3-2.9); LYMPHOCYTES % (AUTO) 5.4 % (21.0-51.0); MEAN CORPUSCULAR HEMOGLOBIN 30.2 pg (27.0-34.0); MEAN CORPUSCULAR HGB CONC 34.4 g/dL (33.0-35.0); MEAN CORPUSCULAR VOLUME 87.7 fL (80.0-100.0); MEAN PLATELET VOLUME 10.4 fL (7.4-11.0); MONOCYTES # (AUTO) 0.4 x10^3/uL (0.3-0.8); MONOCYTES % (AUTO) 3.2 % (0.0-13.0); NEUTROPHILS # (AUTO) 12.4 x10^3/uL (2.2-4.8); NEUTROPHILS % (AUTO) 91.3 % (42.0-75.0); RED BLOOD COUNT 3.41 X10^6/uL (4.7-6.0); RED CELL DISTRIBUTION WIDTH 15.6 % (11.6-16.5); WHITE BLOOD COUNT 13.5 X10^3/uL (3.6-10.0)
[2022-07-11 05:13] LABS: ALANINE AMINOTRANSFERASE 23 Units/L (12-78); ALBUMIN 3.1 g/dL (3.4-5.0); ALKALINE PHOSPHATASE 56 Units/L (46-116); ASPARTATE AMINO TRANSFERASE 29 Units/L (15-37); BLOOD UREA NITROGEN 24 mg/dL (7-18); CALCIUM 8.2 mg/dL (8.5-10.1); CARBON DIOXIDE 32.6 mmol/L (21-32); CHLORIDE 103 mmol/L (98-107); COR CA(FOR HYPOALB) 8.9 mg/dL (8.5-10.1); COR NA(FOR HYPERGLY) 143 mmol/L (136-145); CREATININE 1.07 mg/dL (0.70-1.30); SODIUM 142 mmol/L (136-145); TOTAL PROTEIN 5.6 g/dL (6.4-8.2); eGFR NON BLACK RACES > 60 (>60)
[2022-07-11 05:46] LABS: PLATELET MORPHOLOGY COMMENT NORMAL (NORMAL)
[2022-07-11 05:47] LABS: ANISOCYTOSIS SLIGHT; HYPOCHROMASIA SLIGHT
[2022-07-11] MEDS: CARAFATE ORAL SUSP PO SCH ×4 (06:01→20:13)
[2022-07-11] MEDS: SOLU-Medrol 40 MG VIAL IVP SCH ×3 (06:02→21:03)
[2022-07-11] MEDS: REQUIP PO SCH ×3 (06:02→21:03)
[2022-07-11] MEDS: LASIX IVP SCH (06:02)
[2022-07-11] MEDS: DUONEB 0.5 MG/3 MG (3 mL) NEB SCH ×4 (06:07→20:20)
[2022-07-11] MEDS: NS 1/2 1,000 ML IV 1,000 ML IV SCH ×2 (07:07→20:15)
[2022-07-11] MEDS ORDERED: GLUCOPHAGE ONE (07:40)
[2022-07-11] MEDS: PULMICORT NEB TX 0.5 MG NEB SCH ×2 (08:24→20:20)
[2022-07-11] MEDS: CARDURA PO SCH (09:49)
[2022-07-11] MEDS: ARICEPT TAB 5 MG PO SCH (09:49)
[2022-07-11] MEDS: PriLOSEC PO SCH (09:51)
[2022-07-11] MEDS: LYRICA CAP 75 mg PO SCH ×2 (09:51→20:13)
[2022-07-11] MEDS: TOPROL XL PO SCH (09:51)
[2022-07-11] MEDS: ROCEPHIN VIAL 1 GRAM 1 G in NS 100 ML IV 100 ML IV SCH (09:52)
[2022-07-11] MEDS: ZYLOPRIM PO SCH (09:52)
[2022-07-11] MEDS: LIPITOR TAB 20 MG PO SCH (09:52)
[2022-07-11] MEDS: GLUCOPHAGE PO SCH (09:52)
[2022-07-11] MEDS: ASTELIN NASAL SPRAY ENOSTRIL SCH (09:52)
[2022-07-11] MEDS: KLOR-CON PO SCH (11:06)
[2022-07-11] MEDS ORDERED: NS 1/2 1,000 ML IV 1,000 ML IV ONE (14:23)
[2022-07-11] MEDS: SINEquan PO SCH (20:12)
[2022-07-11] MEDS: SNACK - Diabetic Appropriate PO SCH (20:12)
[2022-07-11] MEDS: PEPCID TAB 40 MG PO SCH (20:12)
[2022-07-11] MEDS: NovoLIN R (or HumuLIN R) SUBCUT PRN (20:14)
[2022-07-11] MEDS: NORCO 10/325 TAB PO PRN (20:16)
[2022-07-12] MEDS: REQUIP PO SCH (05:10)
[2022-07-12] MEDS: SOLU-Medrol 40 MG VIAL IVP SCH (05:10)
[2022-07-12] MEDS: DUONEB 0.5 MG/3 MG (3 mL) NEB SCH (05:25)
[2022-07-12] MEDS: CARAFATE ORAL SUSP PO SCH (05:41)
[2022-07-12 06:23] LABS: HEMOGLOBIN 10.8 g/dL (13.5-18.0); LYMPHOCYTES # (AUTO) 0.8 X10^3/uL (1.3-2.9); MONOCYTES # (AUTO) 0.5 x10^3/uL (0.3-0.8); NEUTROPHILS # (AUTO) 10.9 x10^3/uL (2.2-4.8)
[2022-07-12 06:30] LABS: ALANINE AMINOTRANSFERASE 23 Units/L (12-78); ALKALINE PHOSPHATASE 57 Units/L (46-116); ASPARTATE AMINO TRANSFERASE 23 Units/L (15-37); BLOOD UREA NITROGEN 26 mg/dL (7-18); CALCIUM 8.5 mg/dL (8.5-10.1); CARBON DIOXIDE 34.7 mmol/L (21-32); CHLORIDE 105 mmol/L (98-107); COR CA(FOR HYPOALB) 9.3 mg/dL (8.5-10.1); COR NA(FOR HYPERGLY) 146 mmol/L (136-145); SODIUM 145 mmol/L (136-145); TOTAL PROTEIN 5.6 g/dL (6.4-8.2); eGFR NON BLACK RACES > 60 (>60)
[2022-07-12 06:31] LABS: BASOPHILS % (AUTO) 0 % (0.2-1.0); HEMATOCRIT 31.8 % (42.0-54.0); LYMPHOCYTES % (AUTO) 6.3 % (21.0-51.0); MEAN CORPUSCULAR HEMOGLOBIN 30.3 pg (27.0-34.0); MEAN CORPUSCULAR HGB CONC 33.9 g/dL (33.0-35.0); MEAN CORPUSCULAR VOLUME 89.3 fL (80.0-100.0); MEAN PLATELET VOLUME 10.5 fL (7.4-11.0); MONOCYTES % (AUTO) 4.1 % (0.0-13.0); NEUTROPHILS % (AUTO) 89.6 % (42.0-75.0); RED BLOOD COUNT 3.56 X10^6/uL (4.7-6.0); RED CELL DISTRIBUTION WIDTH 15.2 % (11.6-16.5); WHITE BLOOD COUNT 12.1 X10^3/uL (3.6-10.0)
[2022-07-12] MEDS: PULMICORT NEB TX 0.5 MG NEB SCH (08:30)
[2022-07-12] MEDS: ROCEPHIN VIAL 1 GRAM 1 G in NS 100 ML IV 100 ML IV SCH (09:11)
[2022-07-12] MEDS: LYRICA CAP 75 mg PO SCH (09:12)
[2022-07-12] MEDS: KLOR-CON PO SCH (09:12)
[2022-07-12] MEDS: LASIX IVP SCH (09:12)
[2022-07-12] MEDS: LIPITOR TAB 20 MG PO SCH (09:12)
[2022-07-12] MEDS: CARDURA PO SCH (09:13)
[2022-07-12] MEDS: TOPROL XL PO SCH (09:13)
[2022-07-12] MEDS: ZYLOPRIM PO SCH (09:13)
[2022-07-12] MEDS: ARICEPT TAB 5 MG PO SCH (10:02)
[2022-07-12] MEDS: GLUCOPHAGE PO SCH (10:06)
[2022-07-12] MEDS: PriLOSEC PO SCH (10:06)
[2022-07-12] MEDS: ASTELIN NASAL SPRAY ENOSTRIL SCH (10:07)
[2022-07-12 12:45] VITALS: BP 160/60
== END 2022-07-12 11:58 | disposition home or self-care (01) ==
LOC: MED/SURG 15:59 → ER 15:59 → MED/SURG 20:44
PROVIDERS: ADMIT Obstetrics & Gynecology Obstetrics; ATTEND Internal Medicine
DX: R06.02 Shortness of breath; E11.65 Type 2 diabetes mellitus with hyperglycemia; I11.0 Hypertensive heart disease with heart failure; R13.11 Dysphagia, oral phase; K22.89 Other specified disease of esophagus; I50.9 Heart failure, unspecified; R53.1 Weakness; K22.2 Esophageal obstruction; R94.31 Abnormal electrocardiogram [ECG] [EKG]; M06.89 Other specified rheumatoid arthritis, multiple sites; B37.89 Other sites of candidiasis; I25.10 Atherosclerotic heart disease of native coronary artery without angina pectoris; J44.1 Chronic obstructive pulmonary disease with (acute) exacerbation

== ENCOUNTER 2022-09-03 18:59 | Observation (INO) ==
--- NOTE | 2022-09-03 19:06 | DR.AMS ---
HPI Time Seen Time Seen by Provider: 09/03/22 19:08 Complaint Cheif Complaint Doctors Comments: 87 y/o male brought in via EMS. Family called, pt with decreased responsiveness. Is breathing, but not responding to commands. Pupils currently pinpoint, EMS asked relative about possbile use of narcotic meds, but he didn't know. Pt currently somnolent, shivering at times, unable to offer complaints. Last seen normal around 1300, was tired then. Reviewed Nurses Notes Reviewed: Yes Source History Provided: EMS PMH PMH Past Medical History: Anxiety, Arthritis, COPD, Coronary Artery Disease, Diabetes, GERD, Gout, Hypertension and PUD Past Surgical History: Yes Surgical History: Tonsillectomy and Other Family History Family Medical History: Coronary Artery Disease and Hypertension Social History Does patient currently use any type of tobacco product: No Do you use any recreational Drugs:: No ROS Review of Systems Unable to Obtain Due To: Altered mental status PE Vitals Vital Signs: Pulse Resp BP BP BP Pulse Ox O2 Del Method 03/27/21 01:00 135/58 01/27/21 08:00 140/65 09/03/22 19:45 103 H 47 H 95 09/03/22 19:30 79 45 H 86 L 09/03/22 19:21 91 H 34 H 69 L 09/03/22 19:12 70 24 149/65 94 L Room Air 08/04/22 11:24 150/67 08/03/22 20:09 07/30/22 18:00 126/56 07/28/22 15:00 192/85 FiO2 03/27/21 01:00 01/27/21 08:00 09/03/22 19:45 09/03/22 19:30 09/03/22 19:21 09/03/22 19:12 08/04/22 11:24 08/03/22 20:09 28 07/30/22 18:00 07/28/22 15:00 General General Appearance: Other (Pt somnolent, not following commands. + jerks when startled) Head Head Exam: Normal Inspection, Atraumatic and Normocephalic Eyes Eye exam: Other (+ bilateral pinpoint pupils (< 1 mm diameter)) ENT ENT Exam: Mucous Membranes Moist Neck Neck Exam: Normal Inspection Respiratory Respiratory Exam: Normal Lung Sounds Bilat; negative Accessory Muscle Use or Respiratory Distress Cardiovascular Cardiovascular Exam: Regular Rate, Normal Rhythm and Normal Heart Sounds Abdominal Exam Abdominal Exam: Normal Bowel Sounds and Soft; negative Tenderness Extremities Extremities Exam: Edema (1-2+ bilateral lower ext) Neurological Neurological Exam: Other (unable to assess fully, moving all exts equally. Unable to assess strength. ) COURSE Treatment Treatment: 87 y/o male brought in via EMS with altered mental status. Has the smallest pin point pupils I've ever seen !!. 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 Pt given IV narcan, 2 mg, prior to going to CT. + becoming more responsive, mumbling more, moving more. Pupils now [address] head without obvious ICH. W/u continued. Will give additional IV narcan. 195 - discussed wtih Dr Ren. Will admit for further treatment/observation. Pt given additional IV narcan, 2 mg, now. ROR Labs Reviewed Laboratory Results Reviewed?: Yes Result Diagrams: 09/04/22 04:06 09/04/22 04:06 Laboratory: WBC 7.9 X10^3/uL (3.6-10.0) 09/03/22 19:05 RBC 3.47 X10^6/uL (4.7-6.0) L 09/03/22 19:05 Hgb 10.4 g/dL (13.5-18.0) L 09/03/22 19:05 Hct 30.7 % (42.0-54.0) L 09/03/22 19:05 MCV 88.7 fL (80.0-100.0) 09/03/22 19:05 MCH 30.1 pg (27.0-34.0) 09/03/22 19:05 MCHC 33.9 g/dL (33.0-35.0) 09/03/22 19:05 RDW 15.3 % (11.6-16.5) 09/03/22 19:05 Plt Count 82 X10^3/uL (150.0-450.0) L 09/03/22 19:05 MPV 8.6 fL (7.4-11.0) 09/03/22 19:05 Neut % (Auto) 61.1 % (42.0-75.0) 09/03/22 19:05 Lymph % (Auto) 28.2 % (21.0-51.0) 09/03/22 19:05 [place] % (Auto) 8.7 % (0.0-13.0) 09/03/22 19:05 Eos % (Auto) 1.0 % (0.9-2.9) 09/03/22 19:05 Baso % (Auto) 1.0 % (0.2-1.0) 09/03/22 19:05 Neut # (Auto) 4.8 x10^3/uL (2.2-4.8) 09/03/22 19:05 Lymph # (Auto) 2.2 X10^3/uL (1.3-2.9) 09/03/22 19:05 [place] # (Auto) 0.7 x10^3/uL (0.3-0.8) 09/03/22 19:05 Eos # (Auto) 0.1 x10^3/uL (0.0-0.2) 09/03/22 19:05 Baso # (Auto) 0.1 X10^3/uL (0.0-0.1) 09/03/22 19:05 Absolute Nucleated RBC 0.0 /100WBC 09/03/22 19:05 Sodium 144 mmol/L (136-145) 09/03/22 19:05 Corrected Sodium 145 mmol/L (136-145) 09/03/22 19:05 Potassium 4.0 mmol/L (3.5-5.1) 09/03/22 19:05 Chloride 102 mmol/L (98-107) 09/03/22 19:05 Carbon Dioxide 39.0 mmol/L (21-32) H 09/03/22 19:05 BUN 18 mg/dL (7-18) 09/03/22 19:05 Creatinine 1.28 mg/dL (0.70-1.30) 09/03/22 19:05 Est GFR (MDRD) Af Amer > 60 (>60) 09/03/22 19:05 Est GFR (MDRD) Non-Af 56 (>60) L 09/03/22 19:05 Glucose 123 mg/dL (65-99) H 09/03/22 19:05 Calcium 8.4 mg/dL (8.5-10.1) L 09/03/22 19:05 Corrected Calcium 9.0 mg/dL (8.5-10.1) 09/03/22 19:05 Total Bilirubin 0.70 mg/dL (0.2-1.0) 09/03/22 19:05 AST 24 Units/L (15-37) 09/03/22 19:05 ALT 30 Units/L (12-78) 09/03/22 19:05 Alkaline Phosphatase 58 Units/L (46-116) 09/03/22 19:05 Troponin I High Sens 15.3 ng/L (4.0-60.0) 09/03/22 19:05 Total Protein 6.1 g/dL (6.4-8.2) L 09/03/22 19:05 Albumin 3.3 g/dL (3.4-5.0) L 09/03/22 19:05 Globulin 2.8 g/dL (2.5-4.5) 09/03/22 19:05 Albumin/Globulin Ratio 1.2 Ratio (1.1-2.1) 09/03/22 19:05 Specimen Type Catherized urine 09/03/22 19:52 Urine Color Pale yellow (YELLOW) 09/03/22 19:52 Urine Appearance Clear (CLEAR) 09/03/22 19:52 Urine pH 7.0 (5.0 - 8.0) 09/03/22 19:52 Ur Specific [place] 1.020 (1.000-1.030) 09/03/22 19:52 Urine Protein Negative (NEGATIVE) 09/03/22 19:52 Urine Glucose (UA) Negative (NEGATIVE) 09/03/22 19:52 Urine Ketones Negative (NEGATIVE) 09/03/22 19:52 Urine Blood Negative (NEGATIVE) 09/03/22 19:52 Urine Nitrite Negative (NEGATIVE) 09/03/22 19:52 Urine Bilirubin Negative (NEGATIVE) 09/03/22 19:52 Urine Urobilinogen Normal (NORMAL) 09/03/22 19:52 Ur Leukocyte Esterase Negative (NEGATIVE) 09/03/22 19:52 Urine Opiates Screen Positive (NEG=<300) 09/03/22 19:52 Urine Methadone Screen Negative (NEG=<300) 09/03/22 19:52 Ur Barbiturates Screen Negative (NEG=<200) 09/03/22 19:52 Ur Phencyclidine Scrn Negative (NEG=<25) 09/03/22 19:52 Ur Amphetamines Screen Negative (NEG=<1000) 09/03/22 19:52 U Benzodiazepines Scrn Negative (NEG=<200) 09/03/22 19:52 Urine Cocaine Screen Negative (NEG=<300) 09/03/22 19:52 U Marijuana (THC) Screen Negative (NEG=<50) 09/03/22 19:52 Labs acceptable. XRAY XRAY Interpreted by: Both X-ray Results: now acute changes, no ICH. EKG Rate: 60 Rhythm: Paced Opioid Opioid Risk Tool Age (Ciaran box if 16-45): No History of Preadolescent Sexual Abuse: No Total: 0 Total Score Risk Category: Low Risk Copyright: Pepe RAI predicting aberrant behaviors Discharge Plan Diagnosis Discharge Problem: Narcotic overdose Discharge Plan Patient Disposition: 09 ADMITTED INPATIENT Condition: Stable
[2022-09-03] MEDS ORDERED: NARCAN INJ ONE ×2 (19:08→19:54)
[2022-09-03] MEDS ORDERED: NARCAN INJ IVP ONE ×2 (19:09→19:57)
[2022-09-03 19:19] LABS: BASOPHILS # (AUTO) 0.1 X10^3/uL (0.0-0.1); EOSINOPHILS # (AUTO) 0.1 x10^3/uL (0.0-0.2); HEMATOCRIT 30.7 % (42.0-54.0); HEMOGLOBIN 10.4 g/dL (13.5-18.0); LYMPHOCYTES # (AUTO) 2.2 X10^3/uL (1.3-2.9); LYMPHOCYTES % (AUTO) 28.2 % (21.0-51.0); MEAN CORPUSCULAR HEMOGLOBIN 30.1 pg (27.0-34.0); MEAN CORPUSCULAR HGB CONC 33.9 g/dL (33.0-35.0); MEAN CORPUSCULAR VOLUME 88.7 fL (80.0-100.0); MEAN PLATELET VOLUME 8.6 fL (7.4-11.0); MONOCYTES # (AUTO) 0.7 x10^3/uL (0.3-0.8); MONOCYTES % (AUTO) 8.7 % (0.0-13.0); NEUTROPHILS # (AUTO) 4.8 x10^3/uL (2.2-4.8); NEUTROPHILS % (AUTO) 61.1 % (42.0-75.0); RED BLOOD COUNT 3.47 X10^6/uL (4.7-6.0); RED CELL DISTRIBUTION WIDTH 15.3 % (11.6-16.5); WHITE BLOOD COUNT 7.9 X10^3/uL (3.6-10.0)
--- NOTE | 2022-09-03 19:27 | EKG ---
Test Reason : altered mental status Blood Pressure : */* mmHG Vent. Rate : 66 BPM Atrial Rate : 33 BPM P-R Int : * ms QRS Dur : 98 ms QT Int : 434 ms P-R-T Axes : * -5 124 degrees QTc Int : 454 ms Undetermined rhythm Septal infarct , age undetermined Abnormal ECG When compared with ECG of 29-JUL-2022 00:45, Current undetermined rhythm precludes rhythm comparison, needs review QRS axis shifted right Referred By: Confirmed By:
[2022-09-03 19:34] LABS: ALANINE AMINOTRANSFERASE 30 Units/L (12-78); ALBUMIN 3.3 g/dL (3.4-5.0); ALKALINE PHOSPHATASE 58 Units/L (46-116); ASPARTATE AMINO TRANSFERASE 24 Units/L (15-37); BLOOD UREA NITROGEN 18 mg/dL (7-18); CALCIUM 8.4 mg/dL (8.5-10.1); CHLORIDE 102 mmol/L (98-107); COR NA(FOR HYPERGLY) 145 mmol/L (136-145); CREATININE 1.28 mg/dL (0.70-1.30); SODIUM 144 mmol/L (136-145); TOTAL PROTEIN 6.1 g/dL (6.4-8.2); eGFR NON BLACK RACES 56 (>60)
--- NOTE | 2022-09-03 19:38 | CT ---
History: AMS, JERKING Relevant Clinical InformationExam :BRAIN W/O CONTechnique: Thin section axial ct images of the brain were obtained from the foramen magnum to the vertex without contrast. Sagittal and coronal reconstructions were also performed.Comparison: 04/03/2021Findings:The ventricles are within normal limits in size. No midline shift, mass effect or extra-axial fluid collections. No evidence of acute hemorrhage or acute macroinfarction. Moderate cortical atrophy compatible with patient's age. Decreased attenuation in the periventricular and subcortical white matter consistent with microvascular ischemic white matter changes. Prominent extra-axial CSF spaces again noted bilaterally.There is fluid and/or mucosal thickening within the mastoid air cells bilaterally. The calvarium is intact.Impression:Mild cortical atrophy with microvascular ischemic white matter changes.No acute intracranial pathology.Bilateral otomastoiditisElectronically signed by: Ralph Mortensen (Sep 03, 2022 19:33:33)
[2022-09-03 20:01] LABS: BILIRUBIN,URINE NEGATIVE (NEGATIVE); BLOOD/HEMOGLOBIN,URINE NEGATIVE (NEGATIVE); GLUCOSE, URINE NEGATIVE (NEGATIVE); KETONES,URINE NEGATIVE (NEGATIVE); LEUKOCYTE ESTERASE ,URINE NEGATIVE (NEGATIVE); NITRITES,URINE NEGATIVE (NEGATIVE); PROTEIN,URINE NEGATIVE (NEGATIVE); UROBILINOGEN,URINE NORMAL (NORMAL)
[2022-09-03 20:03] LABS: APPEARANCE,URINE CLEAR (CLEAR); COLOR,URINE PALE YELLOW (YELLOW)
[2022-09-03] MEDS ORDERED: ROCEPHIN VIAL 1 GRAM 1 G in NS 100 ML IV 100 ML IV ONE (20:26)
[2022-09-03] MEDS ORDERED: NS 100 ML IV 100 ML ONE (20:27)
[2022-09-03] MEDS ORDERED: ROCEPHIN VIAL 1 GRAM ONE (20:27)
[2022-09-03 22:12] VITALS: BMI 29.5
[2022-09-04 05:17] LABS: BASOPHILS % (AUTO) 0.5 % (0.2-1.0); EOSINOPHILS # (AUTO) 0.1 x10^3/uL (0.0-0.2); EOSINOPHILS % (AUTO) 1.1 % (0.9-2.9); HEMATOCRIT 28.3 % (42.0-54.0); HEMOGLOBIN 9.5 g/dL (13.5-18.0); LYMPHOCYTES # (AUTO) 2.1 X10^3/uL (1.3-2.9); LYMPHOCYTES % (AUTO) 26.2 % (21.0-51.0); MEAN CORPUSCULAR HEMOGLOBIN 29.6 pg (27.0-34.0); MEAN CORPUSCULAR HGB CONC 33.5 g/dL (33.0-35.0); MEAN CORPUSCULAR VOLUME 88.4 fL (80.0-100.0); MEAN PLATELET VOLUME 9.3 fL (7.4-11.0); MONOCYTES # (AUTO) 0.8 x10^3/uL (0.3-0.8); MONOCYTES % (AUTO) 9.6 % (0.0-13.0); NEUTROPHILS # (AUTO) 5.1 x10^3/uL (2.2-4.8); NEUTROPHILS % (AUTO) 62.6 % (42.0-75.0); RED CELL DISTRIBUTION WIDTH 15.5 % (11.6-16.5); WHITE BLOOD COUNT 8.1 X10^3/uL (3.6-10.0)
[2022-09-04 05:31] LABS: ALANINE AMINOTRANSFERASE 23 Units/L (12-78); ALBUMIN 2.8 g/dL (3.4-5.0); ALKALINE PHOSPHATASE 49 Units/L (46-116); ASPARTATE AMINO TRANSFERASE 22 Units/L (15-37); BLOOD UREA NITROGEN 16 mg/dL (7-18); CALCIUM 8.3 mg/dL (8.5-10.1); CARBON DIOXIDE 40.3 mmol/L (21-32); CHLORIDE 105 mmol/L (98-107); COR CA(FOR HYPOALB) 9.3 mg/dL (8.5-10.1); CREATININE 1.07 mg/dL (0.70-1.30); SODIUM 146 mmol/L (136-145); TOTAL PROTEIN 5.3 g/dL (6.4-8.2); eGFR NON BLACK RACES > 60 (>60)
--- NOTE | 2022-09-04 08:32 | RAD ---
HISTORYCOPDSTUDYChest AP [id number]/13/2023FINDINGSHear t size is normal. [place] are normal. Lung vicente are free of acute infiltrates. No pleural effusions are identified. Bony thorax is unremarkable. There is a pacemaker present in the right axilla.IMPRESSIONNo significant abnormality identifiedElectronically signed by: HELIO TAYLOR (Sep 04, 2022 08:30:29)
[2022-09-04] MEDS: PULMICORT NEB TX 0.5 MG NEB SCH ×2 (09:01→20:42)
[2022-09-04 09:12] LABS: ABG BASE EXCESS 14.1 mmol/L (-2.0-2.0)
[2022-09-04 09:13] LABS: ABG ALLEN TEST POS; ABG HCO3 39.6 mmol/L (22-26)
--- NOTE | 2022-09-04 09:16 | EKG ---
Test Reason : ams Blood Pressure : */* mmHG Vent. Rate : 66 BPM Atrial Rate : 66 BPM P-R Int : 138 ms QRS Dur : 86 ms QT Int : 422 ms P-R-T Axes : 74 -14 8 degrees QTc Int : 442 ms Normal sinus rhythm Low voltage QRS Nonspecific T wave abnormality Abnormal ECG When compared with ECG of 03-SEP-2022 19:25, (Unconfirmed) ST no longer depressed in Inferior leads Nonspecific T wave abnormality now evident in Anterior leads Nonspecific T wave abnormality has replaced inverted T waves in Lateral leads Confirmed by Arcenio Jay ([id number]) on 09/04/2022 7:28:49 PM Referred By: Confirmed By: Arcenio Jay
[2022-09-04] MEDS: PROTONIX INJ 40 MG VIAL IVP SCH ×2 (10:39→21:27)
[2022-09-04] MEDS: LEVAQUIN PREMIX IV 500 MG 500 MG/100 ML BAG IV SCH (10:39)
[2022-09-04] MEDS: TOPROL XL PO SCH (10:39)
[2022-09-04] MEDS: CARDURA PO SCH (10:40)
[2022-09-04] MEDS ORDERED: NS 1,000 ML IV 1,000 ML ONE (10:51)
[2022-09-04] MEDS: DUONEB 0.5 MG/3 MG (3 mL) NEB SCH ×2 (11:41→16:44)
[2022-09-04] MEDS: REQUIP PO PRN (12:37)
--- NOTE | 2022-09-04 18:15 | DR.H&P ---
H&P - History & Physical for Day of: H&P Date: 09/03/22 - Chief Complaint Chief Complaint: AMS - History of Present Illness History of Present Illness: 87 y/o male brought in via EMS. Family called, pt with decreased responsiveness. Pt has PMH of Resp Failure, COPD, CHF, DM, and HTN. Pt had Ct head in ER without acute findings. 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 Pt was admitted to ICU for treatment of acute illness. - Past Medical History Past Medical History: Arthritis, CHF, COPD, Diabetes, GERD - Past Surgical History Surgical History: Tonsillectomy Additional Surgical History: PACEMAKER - Family History Family Medical History: Coronary Artery Disease, Hypertension - Social History Does patient currently use any type of tobacco product: No Does any household member use tobacco: No Alcohol Use: None Drug Use: None - Medications Home Medications: shellfish derived Allergy (Severe, Verified 09/03/22 19:31) ANAPHALEXIS REACTION codeine Allergy (Unknown, Verified 09/03/22 19:31) Iodinated Contrast Media Allergy (Unknown, Verified 09/03/22 19:31) CONTINUE taking the following medications allopurinol 100 mg tablet 100 mg PO DAILY 09/03/22 [History] atorvastatin 20 mg tablet 20 mg PO QHS 09/03/22 [History] donepezil 5 mg tablet 1 tab PO QDAY 09/03/22 [History] doxazosin 8 mg tablet 1 tab PO QDAY 09/03/22 [History] doxazosin 8 mg tablet 1 tab PO QDAY 09/03/22 [History] doxepin 10 mg capsule 10 mg PO QHS 09/03/22 [History] famotidine 40 mg tablet 40 mg PO QHS 09/03/22 [History] furosemide 40 mg tablet 1 tab PO DAILY 09/03/22 [History] hydrocodone 10 mg-acetaminophen 325 mg tablet 1 tab PO QID PRN 09/03/22 [History] metformin 500 mg tablet 1 tab PO QDAY 09/03/22 [History] metoprolol succinate 25 mg tablet,extended release 24 hr 25 mg PO DAILY 09/03/22 [History] omeprazole 40 mg capsule,delayed release 1 cap PO BID 09/03/22 [History] pregabalin 75 mg capsule 1 cap PO BID 09/03/22 [History] ropinirole 4 mg tablet 1 tab PO TID PRN 09/03/22 [History] - Review of Systems Constitutional: Weakness Eyes: No Symptoms Reported ENT: Throat Pain, Throat Swelling Respiratory: Shortness of Breath, Wheezing Cardiovascular: No Symptoms Reported Gastrointestinal: No Symptoms Reported Genitourinary: No Symptoms Reported Musculoskeletal: Back Pain, Leg Pain Skin: No Symptoms Reported Neurological: Weakness - Physical Exam Vital Signs: Temperature 98.4 F Pulse Rate 69 Respiratory Rate 35 Blood Pressure [Right Arm] 126/56 Blood Pressure [Left Arm] 192/85 Blood Pressure [Right Arm] 135/58 Blood Pressure [Left Arm] 140/65 Blood Pressure 118/58 O2 Sat by Pulse Oximetry 96 Oriented: Person Ear: Normal Nose: Normal Throat: Normal Respiratory: Diminished Throughout Cardiovascular: Normal, Other (pacemaker present ). negative: Edema : Normal Auscultation: Bowel Sounds: Normal Palpation: Normal Tenderness: Normal Skin: Decreased Turgur Musculoskeletal: Back:Lumbar Psychiatric: Anxiety Affect: Anxious Speech Pattern: Clear, Appropriate - Assessment/Plan (1) AMS (altered mental status) Qualifiers: Altered mental status type: disorientation Qualified Code(s): R41.0 - Disorientation, unspecified Status: Acute Plan: ADMIT, CT HEAD ER. CARDIAC MONTORING, SUPPLEMENTAL O2. VERIFY HOME MEDICATION. REPEAT AM LABS. STRICT I&OS, BP AND BS CONTROL (2) Pacemaker Status: Acute (3) Chronic respiratory failure with hypoxia, on home O2 therapy Status: Acute (4) GERD (gastroesophageal reflux disease) Qualifiers: Esophagitis presence: esophagitis presence not specified Qualified Code(s): K21.9 - Gastro-esophageal reflux disease without esophagitis Status: Chronic (5) Hypoxia Status: Chronic (6) Rheumatoid arthritis Status: Chronic (7) Diabetes mellitus Status: None - Allergies Allergies/Adverse Reactions: Allergies Allergy/AdvReac Type Severity Reaction Status Date / Time shellfish derived Allergy Severe ANAPHALEXIS Verified 09/03/22 19:31 REACTION codeine Allergy Unknown Verified 09/03/22 19:31 Iodinated Contrast Media Allergy Unknown Verified 09/03/22 19:31
--- NOTE | 2022-09-04 18:25 | PCM.PROG ---
Progress Note - Progress Note for Day of Date of Exam: 09/04/22 - Subjective Subjective: PT IS 87 WM, ER ADMISSION WITH AMS. PT HAS BEEN ON SUPPLEMENTAL O2, WITH ABG REVEALING PO2 62. PT IS MORE AWAKE AND ALERT THIS AM. PT DENING ANY CHEST PAIN, BUT CO SORE THROAT AND REPORTS HE HAD EPISODE WITH SORE THROAT AND FEELING A CHOKING SENSATION LAST PM. PT REPORTS TAKING HIS HOME MEDICATION DIRECTED LAST PM. PT REPORTS HE WAS TO SEE [facility] ON THURSDAY FOR PACEMAKER TO BE REPLACEMENT. CE AND CXR ORDERED FOR THIS AM. WILL CONSULT RESP FOR DUO NEBS AND EKG. - Past Medical Family Social History Past Med/Fam/Surg Hx: No changes since H&P Allergies: Allergies shellfish derived Allergy (Severe, Verified 09/03/22 19:31) ANAPHALEXIS REACTION codeine Allergy (Unknown, Verified 09/03/22 19:31) Iodinated Contrast Media Allergy (Unknown, Verified 09/03/22 19:31) - Review of Systems ROS: No change since H&P - Vital Signs and I&O's Vital Signs: Temperature 97.9 F Pulse Rate 87 Respiratory Rate 18 Blood Pressure [Right Arm] 126/56 Blood Pressure [Left Arm] 192/85 Blood Pressure [Right Arm] 135/58 Blood Pressure [Left Arm] 140/65 Blood Pressure 126/58 O2 Sat by Pulse Oximetry 95 Intake and Output: Intake & Output 09/02/22 09/03/22 09/04/22 09/05/22 11:59 11:59 11:59 11:59 Intake Total 20 / 20 870 / 870 Output Total 1200 / 1200 Balance -1180 / -1180 870 / 870 - Physical Exam Oriented: Person Ear: Normal Nose: Normal Throat: Normal Respiratory: Diminished Cardiovascular: Normal, Other (pacemaker present ). negative: Edema : Normal Auscultation: Bowel Sounds: Normal Tenderness: Normal Skin: Decreased Turgur Musculoskeletal: Back:Lumbar Psychiatric: Anxiety Affect: Anxious Speech Pattern: Clear, Appropriate - Laboratory and Diagnostics Result Diagrams: 09/04/22 04:06 09/04/22 04:06 Labs: Laboratory WBC 8.1 X10^3/uL (3.6-10.0) 09/04/22 04:06 RBC 3.20 X10^6/uL (4.7-6.0) L 09/04/22 04:06 Hgb 9.5 g/dL (13.5-18.0) L 09/04/22 04:06 Hct 28.3 % (42.0-54.0) L 09/04/22 04:06 MCV 88.4 fL (80.0-100.0) 09/04/22 04:06 MCH 29.6 pg (27.0-34.0) 09/04/22 04:06 MCHC 33.5 g/dL (33.0-35.0) 09/04/22 04:06 RDW 15.5 % (11.6-16.5) 09/04/22 04:06 Plt Count 76 X10^3/uL (150.0-450.0) L 09/04/22 04:06 MPV 9.3 fL (7.4-11.0) 09/04/22 04:06 Neut % (Auto) 62.6 % (42.0-75.0) 09/04/22 04:06 Lymph % (Auto) 26.2 % (21.0-51.0) 09/04/22 04:06 [place] % (Auto) 9.6 % (0.0-13.0) 09/04/22 04:06 Eos % (Auto) 1.1 % (0.9-2.9) 09/04/22 04:06 Baso % (Auto) 0.5 % (0.2-1.0) 09/04/22 04:06 Neut # (Auto) 5.1 x10^3/uL (2.2-4.8) H 09/04/22 04:06 Lymph # (Auto) 2.1 X10^3/uL (1.3-2.9) 09/04/22 04:06 [place] # (Auto) 0.8 x10^3/uL (0.3-0.8) 09/04/22 04:06 Eos # (Auto) 0.1 x10^3/uL (0.0-0.2) 09/04/22 04:06 Baso # (Auto) 0.0 X10^3/uL (0.0-0.1) 09/04/22 04:06 Absolute Nucleated RBC 0.0 /100WBC 09/04/22 04:06 Sample Site Lr 09/04/22 09:05 ABG pH 7.490 (7.35-7.45) H 09/04/22 09:05 ABG pCO2 52.0 mmHg (35.0-45.0) H* 09/04/22 09:05 ABG pO2 66.0 mmHg (80.0-100.0) L 09/04/22 09:05 ABG HCO3 39.6 mmol/L (22-26) H* 09/04/22 09:05 ABG O2 Saturation 94.0 % (90-100) 09/04/22 09:05 ABG Base Excess 14.1 mmol/L (-2.0-2.0) H 09/04/22 09:05 Romain Test Pos 09/04/22 09:05 A-a Gradient 19.0 mmHg 09/04/22 09:05 FiO2 21.0 09/04/22 09:05 Blood Gas Comments Pt donna well cdn 09/04/22 09:05 Sodium 146 mmol/L (136-145) H 09/04/22 04:06 Corrected Sodium TNP 09/04/22 04:06 Potassium 3.5 mmol/L (3.5-5.1) 09/04/22 04:06 Chloride 105 mmol/L (98-107) 09/04/22 04:06 Carbon Dioxide 40.3 mmol/L (21-32) H 09/04/22 04:06 BUN 16 mg/dL (7-18) 09/04/22 04:06 Creatinine 1.07 mg/dL (0.70-1.30) 09/04/22 04:06 Est GFR (MDRD) Af Amer > 60 (>60) 09/04/22 04:06 Est GFR (MDRD) Non-Af > 60 (>60) 09/04/22 04:06 Glucose 92 mg/dL (65-99) 09/04/22 04:06 POC Glucose (mg/dL) 107 mg/dL (65-99) H 09/04/22 16:28 Calcium 8.3 mg/dL (8.5-10.1) L 09/04/22 04:06 Corrected Calcium 9.3 mg/dL (8.5-10.1) 09/04/22 04:06 Total Bilirubin 0.70 mg/dL (0.2-1.0) 09/04/22 04:06 AST 22 Units/L (15-37) 09/04/22 04:06 ALT 23 Units/L (12-78) 09/04/22 04:06 Alkaline Phosphatase 49 Units/L (46-116) 09/04/22 04:06 Creatine Kinase 122 Units/L (39-308) 09/04/22 04:06 Troponin I High Sens 14.3 ng/L (4.0-60.0) 09/04/22 14:22 Total Protein 5.3 g/dL (6.4-8.2) L 09/04/22 04:06 Albumin 2.8 g/dL (3.4-5.0) L 09/04/22 04:06 Globulin 2.5 g/dL (2.5-4.5) 09/04/22 04:06 Albumin/Globulin Ratio 1.1 Ratio (1.1-2.1) 09/04/22 04:06 Specimen Type Catherized urine 09/03/22 19:52 Urine Color Pale yellow (YELLOW) 09/03/22 19:52 Urine Appearance Clear (CLEAR) 09/03/22 19:52 Urine pH 7.0 (5.0 - 8.0) 09/03/22 19:52 Ur Specific Bennet 1.020 (1.000-1.030) 09/03/22 19:52 Urine Protein Negative (NEGATIVE) 09/03/22 19:52 Urine Glucose (UA) Negative (NEGATIVE) 09/03/22 19:52 Urine Ketones Negative (NEGATIVE) 09/03/22 19:52 Urine Blood Negative (NEGATIVE) 09/03/22 19:52 Urine Nitrite Negative (NEGATIVE) 09/03/22 19:52 Urine Bilirubin Negative (NEGATIVE) 09/03/22 19:52 Urine Urobilinogen Normal (NORMAL) 09/03/22 19:52 Ur Leukocyte Esterase Negative (NEGATIVE) 09/03/22 19:52 Urine Opiates Screen Positive (NEG=<300) 09/03/22 19:52 Urine Methadone Screen Negative (NEG=<300) 09/03/22 19:52 Ur Barbiturates Screen Negative (NEG=<200) 09/03/22 19:52 Ur Phencyclidine Scrn Negative (NEG=<25) 09/03/22 19:52 Ur Amphetamines Screen Negative (NEG=<1000) 09/03/22 19:52 U Benzodiazepines Scrn Negative (NEG=<200) 09/03/22 19:52 Urine Cocaine Screen Negative (NEG=<300) 09/03/22 19:52 U Marijuana (THC) Screen Negative (NEG=<50) 09/03/22 19:52 - Plan (1) AMS (altered mental status) Status: Acute Qualifiers: Altered mental status type: disorientation Qualified Code(s): R41.0 - Disorientation, unspecified Plan: CT HEAD ER WITHOUT ACUTE FINDINGS. CARDIAC MONTORING, SUPPLEMENTAL O2. VERIFY HOME MEDICATION. REPEAT AM LABS, IV LEVAQUIN. STRICT I&OS, BP AND BS CONTROL (2) Bronchitis Status: Acute (3) Pacemaker Status: Acute (4) Chronic respiratory failure with hypoxia, on home O2 therapy Status: Acute (5) GERD (gastroesophageal reflux disease) Status: Chronic Qualifiers: Esophagitis presence: esophagitis presence not specified Qualified Code(s): K21.9 - Gastro-esophageal reflux disease without esophagitis (6) Hypoxia Status: Chronic (7) Rheumatoid arthritis Status: Chronic (8) Diabetes mellitus Status: None
[2022-09-04] MEDS ORDERED: MICRO K EXTEN CAP 10 MEQ PO PRN (18:50)
[2022-09-04] MEDS ORDERED: K-RIDER 10 MEQ/NS 100 ML 10 MEQ/100 ML BAG IV PRN (18:50)
[2022-09-04] MEDS ORDERED: POTASSIUM CHL 40 MEQ/NS 0.45% 500 ML IV PRN (18:50)
[2022-09-04] MEDS ORDERED: POTASSIUM CHLORIDE LIQ 20 MEQ UDC PO PRN (18:50)
[2022-09-04] MEDS ORDERED: KLOR-CON PO PRN (18:50)
[2022-09-04] MEDS ORDERED: POTASSIUM CHL 60 MEQ/NS 0.45% 500 ML IV PRN (18:50)
[2022-09-04] MEDS ORDERED: K-DUR TAB 20 MEQ PO PRN (18:50)
[2022-09-04] MEDS: MAGNESIUM SULFATE 1 GRAM/100 mL PREMIX 1 G/100 ML BAG IV PRN (21:43)
[2022-09-05] MEDS: MAGNESIUM SULFATE 1 GRAM/100 mL PREMIX 1 G/100 ML BAG IV PRN (00:04)
[2022-09-05] MEDS: DUONEB 0.5 MG/3 MG (3 mL) NEB SCH ×3 (00:10→09:12)
[2022-09-05 05:13] LABS: BASOPHILS % (AUTO) 0.3 % (0.2-1.0); EOSINOPHILS % (AUTO) 0.7 % (0.9-2.9); HEMATOCRIT 26.1 % (42.0-54.0); LYMPHOCYTES # (AUTO) 1.6 X10^3/uL (1.3-2.9); MEAN CORPUSCULAR HEMOGLOBIN 30.4 pg (27.0-34.0); MEAN CORPUSCULAR HGB CONC 34.5 g/dL (33.0-35.0); MEAN CORPUSCULAR VOLUME 88.1 fL (80.0-100.0); MEAN PLATELET VOLUME 9.2 fL (7.4-11.0); MONOCYTES # (AUTO) 0.6 x10^3/uL (0.3-0.8); MONOCYTES % (AUTO) 9.3 % (0.0-13.0); NEUTROPHILS # (AUTO) 4.4 x10^3/uL (2.2-4.8); NEUTROPHILS % (AUTO) 65.7 % (42.0-75.0); RED BLOOD COUNT 2.96 X10^6/uL (4.7-6.0); RED CELL DISTRIBUTION WIDTH 15.3 % (11.6-16.5); WHITE BLOOD COUNT 6.7 X10^3/uL (3.6-10.0)
[2022-09-05 05:26] LABS: ALANINE AMINOTRANSFERASE 21 Units/L (12-78); ALBUMIN 2.6 g/dL (3.4-5.0); ALKALINE PHOSPHATASE 49 Units/L (46-116); ASPARTATE AMINO TRANSFERASE 18 Units/L (15-37); BLOOD UREA NITROGEN 11 mg/dL (7-18); CALCIUM 8.5 mg/dL (8.5-10.1); CARBON DIOXIDE 33.7 mmol/L (21-32); CHLORIDE 104 mmol/L (98-107); COR CA(FOR HYPOALB) 9.6 mg/dL (8.5-10.1); COR NA(FOR HYPERGLY) 144 mmol/L (136-145); CREATININE 1.09 mg/dL (0.70-1.30); SODIUM 143 mmol/L (136-145); TOTAL PROTEIN 5.2 g/dL (6.4-8.2); eGFR NON BLACK RACES > 60 (>60)
[2022-09-05] MEDS: PULMICORT NEB TX 0.5 MG NEB SCH (08:19)
[2022-09-05 09:01] VITALS: BP 136/63
[2022-09-05] MEDS: CARDURA PO SCH (09:26)
[2022-09-05] MEDS: TOPROL XL PO SCH (09:28)
[2022-09-05] MEDS: REQUIP PO PRN (09:28)
[2022-09-05] MEDS: PROTONIX INJ 40 MG VIAL IVP SCH (09:30)
[2022-09-05] MEDS: LEVAQUIN PREMIX IV 500 MG 500 MG/100 ML BAG IV SCH (09:31)
== END 2022-09-05 09:40 | disposition home health service (06) ==
LOC: ICU 18:59 → ER 18:59 → ICU 20:54
PROVIDERS: ADMIT Internal Medicine; ATTEND Internal Medicine
DX: K21.9 Gastro-esophageal reflux disease without esophagitis; E11.65 Type 2 diabetes mellitus with hyperglycemia; M06.9 Rheumatoid arthritis, unspecified; R41.0 Disorientation, unspecified; Z95.0 Presence of cardiac pacemaker; J20.8 Acute bronchitis due to other specified organisms; R94.31 Abnormal electrocardiogram [ECG] [EKG]; I25.10 Atherosclerotic heart disease of native coronary artery without angina pectoris; J44.9 Chronic obstructive pulmonary disease, unspecified; I10 Essential (primary) hypertension; J96.11 Chronic respiratory failure with hypoxia; F41.8 Other specified anxiety disorders; Z99.81 Dependence on supplemental oxygen